=== PATIENT | female | born 1955 | race African-American/Black ===

== ENCOUNTER → 2016-12-07 | Outpatient (CLI) | payer OTHER ==
--- NOTE | 2016-12-07 17:09 | WWHP ---
DATE OF SERVICE: 12/07/2016 CHIEF COMPLAINT: The patient is here for her routine gynecologic exam and mammogram. HISTORY OF PRESENT ILLNESS: This is a 61-year-old G3, P3 with an LMP of approximately 1994. The patient is without gynecologic complaints and denies any postmenopausal bleeding. She states her last pelvic exam was about 5 years ago. She states she was in the emergency room about 9 months ago and was found to have trichomonas on a urine specimen, and this was treated. Her sexual partner was also treated for this. She denies any vaginal discharge. PAST MEDICAL HISTORY: 1. Chronic hypertension. 2. Peptic ulcer disease. 3. Arthritis. 4. Anxiety. 5. Emphysema. 6. Hepatitis C. Dr. Stevenson is her primary care physician. MEDICATIONS: 1. Blood pressure medication; she is uncertain of the name. She takes this once daily. 2. Xanax 1 daily p.r.n. 3. [place] p.r.n. 4. Tramadol at bedtime. 5. Alupent inhaler p.r.n. ALLERGIES: TALWIN. PAST SURGICAL HISTORY: 1. Right kidney was removed in the past. 2. Colonoscopy x2, the last one in 2016. PAST OB HISTORY: Vaginal deliveries x3. 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 She was treated for trichomonas as above. She has no other history of STDs. She has never taken HRT. SOCIAL HISTORY: She smokes one half to one pack of cigarettes per day. She does drink about 1 to 1-1/2 fifth bottles of alcohol per week. She also has a history of cocaine use but denies any recent usage. She denies any other drug use in the past. She is a . She has been with her present boyfriend for 5 years but does not live with him. She is considered disabled. FAMILY HISTORY: Mother had gastric cancer. Father had lung cancer. Sister had some type of cancer, but she is uncertain of the type. That sister also had diabetes. REVIEW OF SYSTEMS: She believes she has gained about 20 pounds over the last year. She denies respiratory, cardiac or GI problems. PHYSICAL EXAM: Blood pressure 114/84. Height 5 feet 3 inches. Weight 190 pounds. Temperature 96.2, pulse 89. This is a well-developed, heavyset black female who is alert and oriented x3, in no acute distress. She does use a cane to walk. HEENT is within normal limits. NECK: Supple without mass or thyromegaly. CHEST AND LUNGS: Clear to auscultation. HEART: Regular rate and rhythm. Breasts are without mass or discharge. Axillary exam is negative for adenopathy. BACK: Negative for CVA tenderness. ABDOMEN: Soft, nontender, without palpable masses. PELVIC EXAM: External genitalia reveal mild atrophy without lesions. Cervix and vagina reveal mild atrophy without lesions. There is no significant prolapse. The uterus is midposition, nongravid size and nontender. There are no palpable adnexal masses or tenderness. Rectal exam was refused by the patient. EXTREMITIES: Nontender. Saline wet mount was negative for trichomonas or clue cells. IMPRESSION: 1. A 61-year-old menopausal female with normal gynecologic exam. 2. History of trichomonas diagnosed about 9 months ago per the patient. This was apparently treated. There is no evidence of trichomonas upon wet nathalie today. PLAN: 1. Pap smear was performed. 2. Self breast examination was discussed. 3. Mammogram will be done today. 4. GC and chlamydia testing from the cervix has been obtained. I have recommended blood testing for STDs, but she is refusing all blood testing at this time. We have discussed the sexually transmitted nature of trichomonas. STD prevention was discussed. 5. She will return in one year.
--- NOTE | 2016-12-08 07:18 | MM ---
Reason for exam: screening (asymptomatic). Last mammogram was performed 2 years and 3 months ago. Physical Findings: A clinical breast exam by your physician is recommended on an annual basis and results should be correlated with mammographic findings. MG Screening Mammo w CAD Bilateral CC and MLO view(s) were taken. Prior study comparison: September 09, 2014, mammogram, performed at [facility]. January 07, 2013, mammogram, performed at [facility]. There are scattered fibroglandular densities. There is no discrete abnormality. ASSESSMENT: Negative, BI-RAD 1 RECOMMENDATION: Routine screening mammogram of both breasts in 1 year.
== END | disposition home or self-care (01) ==
LOC: WWCWWP 08:38
PROVIDERS: ATTEND Obstetrics & Gynecology
DX: Z12.31 Encounter for screening mammogram for malignant neoplasm of breast (principal); Z11.3 Encounter for screening for infections with a predominantly sexual mode of transmission
CPT/HCPCS: 87591; 87491; G0202

== ENCOUNTER → 2017-04-25 | Outpatient (CLI) | payer OTHER ==
--- NOTE | 2017-04-25 08:13 | US ---
EXAMINATION TYPE: US liver DATE OF EXAM: 04/25/2017 COMPARISON: US CLINICAL HISTORY: Hepatitis C B18.2. Hep C, previous flaco EXAM MEASUREMENTS: Liver Length: 13.5 x 4.9 5.6 cm CBD: 0.9 cm Right Kidney: 13.5 x 4.9 x 5.6 cm Pancreas: Limited by bowel gas. Liver: Visualized portions appeared difficult to penetrate Gallbladder: Surgically absent Evidence for sonographic Marks's sign: No CBD: wnl for post flaco Right Kidney: wnl, lower pole not visualized due to bowel gas. IMPRESSION: 1. Liver somewhat difficult to penetrate which can be seen with fatty infiltration or hepatocellular disease. Correlate clinically. 2. Postcholecystectomy.
== END | disposition home or self-care (01) ==
LOC: RADUSWWP 07:03
PROVIDERS: ATTEND Internal Medicine Gastroenterology
DX: B18.2 Chronic viral hepatitis C (principal); Z90.49 Acquired absence of other specified parts of digestive tract
CPT/HCPCS: 76705

== ENCOUNTER → 2017-06-08 | Outpatient (CLI) | payer OTHER ==
[2017-06-08 09:40] LABS: CH 24.9; CHCM 31.4; HCT 45.3 % (34.0-46.0); HDW 2.55; HGB 13.5 gm/dL (11.4-16.0); Hypochromasia Slight; MCH 23.8 pg (25.0-35.0); MCHC 29.9 g/dL (31.0-37.0); MCV 79.8 fL (80.0-100.0); Mean Platelet Volume 7.8; RBC 5.68 m/uL (3.80-5.40); RDW 14.4 % (11.5-15.5); WBC 4.4 k/uL (3.8-10.6)
[2017-06-08 09:56] LABS: ALT 81 U/L (9-52); AST 91 U/L (14-36); Alkaline Phosphatase 68 U/L (38-126); Anion Gap 15 mmol/L; Blood Urea Nitrogen 15 mg/dL (7-17); Calcium 9.5 mg/dL (8.4-10.2); Carbon Dioxide 16 mmol/L (22-30); Chloride 111 mmol/L (98-107); Cholesterol 221 mg/dL (<200); Glucose 104 mg/dL (74-99); HDL Cholesterol 91 mg/dL (40-60); Non-African American GFR(MDRD) 50 (>60 ml/min/1.73 sqM); Potassium 4.3 mmol/L (3.5-5.1); Sodium 142 mmol/L (137-145); Total Bilirubin 0.4 mg/dL (0.2-1.3); Total Protein 7.9 g/dL (6.3-8.2)
[2017-06-12 17:02] LABS: HCV Qualitative Result DETECTED (Not detected)
== END | disposition home or self-care (01) ==
LOC: LABWHC1 09:18
PROVIDERS: ATTEND Internal Medicine Gastroenterology
DX: Z00.00 Encounter for general adult medical examination without abnormal findings (principal); B18.2 Chronic viral hepatitis C; J44.9 Chronic obstructive pulmonary disease, unspecified; E78.2 Mixed hyperlipidemia; M54.5 Low back pain; K21.0 Gastro-esophageal reflux disease with esophagitis
CPT/HCPCS: 36415; 80053; 80061; 84439; 84443; 85027; 87522; 87902

== ENCOUNTER 2021-12-09 08:52 | Day surgery (SDC) | payer MEDICARE, OTHER ==
[2021-12-07 12:37] VITALS: BMI 26.7
[~2021-12-09 08:52] MED LIST: ALPRAZolam 0.25 MG TAB PO PRN; ALPRAZolam 0.5 MG TAB PO PRN; ASPIRIN 325 MG TAB PO STA; ATORVASTATIN 80 MG TAB PO STA; HEPARIN SODIUM,PORCINE 10,000 UNIT in SODIUM CHLORIDE 0.9% 1,000 ML IRRIGATION PRN; HEPARIN SODIUM,PORCINE 2,500 UNIT in SODIUM CHLORIDE 0.9% 250 ML IRRIGATION PRN; NITROGLYCERIN SL TABS 0.4 MG TAB SUBLINGUAL PRN; SODIUM CHLORIDE 0.9% 1,000 ML in EMPTY BAG 1 BAG IV SCH
[2021-12-09] MEDS ORDERED: SODIUM CHLORIDE 0.9% 1,000 ML IV ONE (09:13)
[2021-12-09 09:38] VITALS: RESP 16; TEMP 97.8
[2021-12-09 09:45] LABS: Basophils # (A) 0.1 k/uL (0-0.2); Basophils % (A) 1 %; Eosinophils # (A) 0.2 k/uL (0-0.7); Eosinophils % (A) 4 %; HGB 12.7 gm/dL (11.4-16.0); Lymphocytes # (A) 1.9 k/uL (1.0-4.8); Lymphocytes % (A) 39 %; MCH 26.2 pg (25.0-35.0); MCHC 30.8 g/dL (31.0-37.0); MCV 85.1 fL (80.0-100.0); Mean Platelet Volume 9.3; Monocytes # (A) 0.4 k/uL (0-1.0); Monocytes % (A) 9 %; Neutrophils # (A) 2.1 k/uL (1.3-7.7); Neutrophils % (A) 44 %; Platelet Count 217 k/uL (150-450); RBC 4.82 m/uL (3.80-5.40); WBC 4.9 k/uL (3.8-10.6)
[2021-12-09] MEDS ORDERED: VERAPAMIL 2.5 MG/ML 2 ML AMP ONE (09:53)
[2021-12-09] MEDS ORDERED: HEPARIN SODIUM 1,000 UN/ML (10ML VL) ONE (09:53)
[2021-12-09 09:58] LABS: Calcium 9.6 mg/dL (8.4-10.2); Potassium 4.6 mmol/L (3.5-5.1)
[2021-12-09] MEDS ORDERED: fentaNYL (PF) 50 MCG/ML 2 ML AMP ONE (10:14)
[2021-12-09] MEDS: fentaNYL (PF) 50 MCG/ML 2 ML AMP IVP ONE ×2 (10:19→10:30)
[2021-12-09] MEDS: MIDAZOLAM 2 MG/2 ML VIAL IVP ONE ×2 (10:19→10:25)
[2021-12-09] MEDS ORDERED: LIDOCAINE 1% INJ 10MG/ML (5 ML VIAL-PF) SQ ONE (10:23)
[2021-12-09] MEDS: VERAPAMIL SYRINGE (5 MG/10 ML) INTRAARTER ONE ×2 (10:25→10:36)
[2021-12-09] MEDS ORDERED: HEPARIN SODIUM 1,000 UN/ML (10ML VL) IV ONE (10:26)
[2021-12-09] MEDS ORDERED: MIDAZOLAM 2 MG/2 ML VIAL IVP ONE (10:30)
[2021-12-09] MEDS ORDERED: IOPAMIDOL-370 125ML BTL INJ ONE (10:35)
[2021-12-09 14:33] VITALS: PULSE 58
--- NOTE | 2021-12-09 14:37 | XR ---
EXAMINATION TYPE: XR chest 1V portable DATE OF EXAM: 12/09/2021 HISTORY: Shortness of breath. COMPARISON: 11/20/2011 TECHNIQUE: Single view of the chest is submitted. FINDINGS: Demonstrated are scattered senescent parenchymal change. There is no evidence for focal infiltrate. The heart is stable. Hilar and mediastinal structures are within normal limits. Degenerative changes are seen of the dorsal spine. IMPRESSION: 1. Chronic changes without evidence for acute pulmonary disease.
[2021-12-09 14:50] VITALS: BP 168/81
--- NOTE | 2021-12-09 14:53 | P.GSCN ---
History of Present Illness Consult date: 12/09/21 Reason for Consult: Coronary artery disease Requesting physician: Jhon Hutchison History of present illness: This is a 66-year-old inactive female who follows on an outpatient basis with Dr. Allan for primary care and Dr. Hutchison for cardiology. She has a previous medical history of hypertension, hyperlipidemia, CVA approximately 20 years ago, single kidney with right nephrectomy in the past, hepatitis C, COPD, depression, current tobacco dependence, daily EtOH use, occasional marijuana and cocaine use. She has been experiencing chest pain and shortness of breath for approximately 2 months. She is debilitated and cannot walk very far, she does admit to walking with a cane. She was seen by cardiology and underwent stress testing which was abnormal, subsequently she was recommended to undergo heart ca theterization which was completed today and which demonstrated 85% left main disease, totally occluded right coronary artery with collateral from the left side, proximal LAD stenosis 95%, mid LAD stenosis 50% with distal LAD stenosis 70%, and circumflex with mild disease 30-40%. Due to these findings consultation was placed to cardiothoracic surgery for surgical revascularization recommendations. Review of Systems Review of systems was completed and was negative except as noted - Cardiovascular Reports as per HPI, Reports chest pain, Reports decreased exercise tolerance, Reports dyspnea on exertion, Reports shortness of breath Past Medical History Past Medical History: Asthma, Coronary Artery Disease (CAD), Chest Pain / Angina, COPD, CVA/TIA, Hyperlipidemia, Hypertension, Liver Disease, Rheumatoid Arthritis (RA) Additional Past Medical History / Comment(s): SOB w/exertion, hx. Hepatitis C, couple TIA's in past, only has 1 kidney, other kidney non-functioning History of Any Multi-Drug Resistant Organisms: None Reported Past Surgical History: Cholecystectomy, Heart Catheterization Additional Past Surgical History / Comment(s): surg. for kidney stones; right nephrectomy Past Anesthesia/Blood Transfusion Reactions: No Reported Reaction Past Psychological History: Depression Smoking Status: Current every day smoker Past Alcohol Use History: Daily Additional Past Alcohol Use History / Comment(s): Admits to 1 pint/day alcohol use, does admit to history of withdrawal Past Drug Use History: Cocaine, Marijuana Additional Drug Use History / Comment(s): Admits to occasional marijuana and cocaine use - Past Family History Mother Family Medical History: Liver Disease Additional Family Medical History / Comment(s): Mother of liver disease Medications and Allergies Home Medications Medication Instructions Recorded Confirmed Type Albuterol Sulfate [Proair Hfa] 1 - 2 puff INHALATION Q6HR PRN 12/07/21 12/09/21 History Aspirin 81 mg PO DAILY 12/07/21 12/09/21 History Diltiazem Cd [Cardizem CD] 180 mg PO DAILY 12/07/21 12/09/21 History FLUoxetine HCL [PROzac] 20 mg PO DAILY 12/07/21 12/09/21 History Fluticasone Nasal [place] [Flonase 2 spray EA NOSTRIL DAILY PRN 12/07/21 12/09/21 History Nasal [place]] LORazepam [Ativan] 0.5 mg PO BID PRN 12/07/21 12/09/21 History Meloxicam [Mobic] 7.5 mg PO DAILY 12/07/21 12/09/21 History Metoprolol Succinate (ER) [Toprol 25 mg PO DAILY 12/07/21 12/09/21 History Xl] Nitroglycerin Sl Tabs [Nitrostat] 0.4 mg SUBLINGUAL Q5M PRN 12/07/21 12/07/21 History traZODone HCL [Desyrel] 100 mg PO HS 12/07/21 12/09/21 History Allergies Allergy/AdvReac Type Severity Reaction Status Date / Time pentazocine [From Amalia] Allergy Nausea & Verified 12/09/21 09:26 Vomiting Surgical - Exam Vital Signs Temp Pulse Resp BP Pulse Ox 97.8 F 60 16 242/107 98 12/09/21 09:35 12/09/21 09:35 12/09/21 09:35 12/09/21 09:35 12/09/21 09:35 CONSTITUTIONAL: Awake and alert, appears comfortable, cooperative, well-devel oped, well-nourished, no pain, no acute distress EYES: Pupils equal, round, reactive to light, normal ocular movement ENT: Moist mucous membranes without oral lesions present NECK: No masses, no bruits, trachea midline RESPIRATORY: Lungs sounds clear to auscultation bilaterally. Respirations e leeroy, nonlabored. Currently on room air with oxygen saturation 93%. Strong cough. No chest wall deformities. No clubbing or cyanosis present CARDIOVASCULAR: S1, S2 present. Regular rate and rhythm, sinus rhythm on telemetry. Palpable peripheral pulses bilaterally. No edema present. No calf pain or tenderness noted. No significant lower extremity varicosities noted. Left radial Rl's test less than 8 seconds. GASTROINTESTINAL: Abdomen soft, nontender, nondistended without masses or o rganomegaly noted. There is no rebound or guarding present. Active bowel sounds present 4 quadrants. GENITOURINARY: Deferred INTEGUMENTARY: Skin is warm and dry with evidence of good perfusion. NEUROLOGIC: Cranial nerves II through XII intact, normal coordination, no obvious motor or sensory deficits, speech is normal MUSKULOSKELETAL: Able to move all extremities, strength equal bilaterally, normal posture PSYCHIATRIC: Alert and oriented to person place and time, appropriate affect, intact judgment and insight Results - Labs 12/09/21 09:30 12/09/21 09:30 Abnormal Lab Results - Last 24 Hours (Table) 12/09/21 Range/Units 09:30 MCHC 30.8 L (31.0-37.0) g/dL RDW 16.0 H (11.5-15.5) % Diabetes panel 12/09/21 Range/Units 09:30 Sodium 138 (137-145) mmol/L Potassium 4.6 (3.5-5.1) mmol/L Chloride 107 (98-107) mmol/L Carbon Dioxide 25 (22-30) mmol/L BUN 11 (7-17) mg/dL Creatinine 0.83 (0.52-1.04) mg/dL Glucose 88 (74-99) mg/dL Calcium 9.6 (8.4-10.2) mg/dL Calcium panel 12/09/21 Range/Units 09:30 Calcium 9.6 (8.4-10.2) mg/dL Pituitary panel 12/09/21 Range/Units 09:30 Sodium 138 (137-145) mmol/L Potassium 4.6 (3.5-5.1) mmol/L Chloride 107 (98-107) mmol/L Carbon Dioxide 25 (22-30) mmol/L BUN 11 (7-17) mg/dL Creatinine 0.83 (0.52-1.04) mg/dL Glucose 88 (74-99) mg/dL Calcium 9.6 (8.4-10.2) mg/dL Adrenal panel 12/09/21 Range/Units 09:30 Sodium 138 (137-145) mmol/L Potassium 4.6 (3.5-5.1) mmol/L Chloride 107 (98-107) mmol/L Carbon Dioxide 25 (22-30) mmol/L BUN 11 (7-17) mg/dL Creatinine 0.83 (0.52-1.04) mg/dL Glucose 88 (74-99) mg/dL Calcium 9.6 (8.4-10.2) mg/dL - Imaging Additional studies: Heart catheterization and echocardiogram films reviewed with Dr. Moura Assessment and Plan Assessment: 1. Coronary artery disease with left main disease 2. Hypertension 3. Hyperlipidemia 4. CVA approximately 20 years ago 5. Single kidney with right nephrectomy in the past 6. Hepatitis C 7. COPD 8. Depression 9. Current tobacco dependence 10. Daily EtOH use with history of withdrawal 11. Occasional marijuana and cocaine use Plan: The patient was seen and examined in the extended stay unit with Dr. Moura. Chart/diagnostics were reviewed. The usual perioperative course of coronary artery bypass surgery was discussed in detail with the patient, risks and benefits were reviewed, all questions were answered. Preoperative testing was initiated. We will calculate STS risk score and discuss with the patient. Tentatively we will plan for surgical myocardial revascularization with left internal mammary artery, endoscopic vein harvesting, possible left radial artery harvest, and ligation of the left atrial appendage with Dr. Moura on 12/22/2021 as long as there are no significant red flags. We will contact the patient with date and time of surgery. More recommendations to follow. Thank you Dr. Hutchison for this consult. We look forward to working with you in the care of your patient. I have personally seen and examined the patient, performed the documentation and the assessment and plan as written. Number of minutes spent on the visit: 30. AMI Messer
[2021-12-09 15:23] LABS: Partial Thromboplastin Time 25.8 sec (22.0-30.0)
[2021-12-09 15:27] LABS: ALT 22 U/L (4-34); AST 50 U/L (14-36); African American GFR (CKD) 71 (>60 ml/min/1.73 sqM); Albumin 3.8 g/dL (3.5-5.0); Alkaline Phosphatase 25 U/L (38-126); Anion Gap 5 mmol/L; Blood Urea Nitrogen 12 mg/dL (7-17); Carbon Dioxide 25 mmol/L (22-30); Chloride 106 mmol/L (98-107); Glucose 107 mg/dL (74-99); Magnesium 1.6 mg/dL (1.6-2.3); Non-African American GFR(CKD) 62 (>60 ml/min/1.73 sqM); Potassium 4.7 mmol/L (3.5-5.1); Sodium 136 mmol/L (137-145); Total Bilirubin 0.6 mg/dL (0.2-1.3); Total Protein 6.8 g/dL (6.3-8.2)
[2021-12-09 15:39] LABS: Appearance,Urine Clear (Clear); Bilirubin,Urine Negative (Negative); Blood,Urine Negative (Negative); Color,Urine Yellow; Glucose,Urine (UA) Negative (Negative); Ketones,Urine Negative (Negative); Leukocyte Esterase,Urine Negative (Negative); Nitrite,Urine Negative (Negative); PH, Urine 6.5 (5.0-8.0); Protein,Urine Negative (Negative); Specific Gravity,Urine 1.044 (1.001-1.035)
--- NOTE | 2021-12-09 17:08 | US ---
EXAMINATION TYPE: US abdomen limited DATE OF EXAM: 12/09/2021 COMPARISON: NONE CLINICAL HISTORY: rule out ascites. rule out ascites Findings: Grayscale imaging of all 4 abdominal quadrants. No evidence of significant ascites noted IMPRESSION: No evidence for significant ascites.
--- NOTE | 2021-12-09 17:10 | US ---
EXAMINATION TYPE: US carotid duplex BILAT DATE OF EXAM: 12/09/2021 COMPARISON: NONE CLINICAL HISTORY: preop cardiac surgery. pre op cardiac surgery EXAM MEASUREMENTS: RIGHT: Peak Systolic Velocity (PSV) cm/sec ----- Right CCA: 63.7 ----- Right ICA: 51.6 ----- Right ECA: 174 ICA/CCA ratio: 0.81 RIGHT: End Diastole cm/sec ----- Right CCA: 12.6 ----- Right ICA: 13.8 ----- Right ECA: 0.0 LEFT: Peak Systolic Velocity (PSV) cm/sec ----- Left CCA: 65.0 ----- Left ICA: 141 ----- Left ECA: 127 ICA/CCA ratio: 2.17 LEFT: End Diastole cm/sec ----- Left CCA: 13.6 ----- Left ICA: 44.7 ----- Left ECA: 44.7 VERTEBRALS (direction of flow): Right Vertebral: Antegrade Left Vertebral: Antegrade Rhythm: Normal Moderate plaque bilateral bifurcations. Tortuous right ICA. Tortuous left ICA. Limited evaluation of left ECA. Increased velocities right ECA and left ECA IMPRESSION: 1. 50-69% stenosis of the left carotid system. 2. Less than 50% stenosis of the right carotid system. Criteria for Assigning % of Stenosis / Diameter reduction (Estimation based on the indirect measurements of the internal carotid artery velocities (ICA PSV). 1. Normal (no stenosis)=ICA PSV < 125 cm/s: ratio < 2.0: ICA EDV<40 cm/s. 2. Less than 50% stenosis=ICA PSV < 125 cm/s: ratio < 2.0: ICA EDV<40 cm/s. 3. 50 to 69% stenosis=ICA PSV of 125 to 230 cm/s: ration 2.0 ? 4.0: ICA EDV 40-100 cm/s. 4. Greater than 70% stenosis to near occlusion= ICA PSV > 230 cm/s: ratio > 4.0: ICA EDV > 100 cm/s. 5. Near occlusion= ICA PSV velocities may be low or undetectable: variable ratio and ICA EDV. 6. Total occlusion=unable to detect flow.
[2021-12-09 19:29] LABS: Hepatitis A Antibody IgM Nonreactive (Nonreactive); Hepatitis B Core IgM Nonreactive (Nonreactive); Hepatitis B Surface Antigen Nonreactive (Nonreactive); Hepatitis C IgG Antibody Reactive (Nonreactive)
[2021-12-09 22:46] LABS: Chol/HDL Ratio 2.16 Ratio; LDL Cholesterol,Calculated 74.9 mg/dL (0.0-131.0); VLDL Calculation 17.52 mg/dL (5.00-40.00)
--- NOTE | 2021-12-10 11:33 | CA ---
Transthoracic Echo Report Name: Joanna Chinchilla Age: 66 Gender: F : 1955 Exam Date: 12/09/2021 12:08 Exam Location: [facility] Ht (in): 64 Wt (lb): 153 Ordering Physician: Lynda Ahuja Attending/Referring Phys: [id number], Seymour Stitcher Feeder Lynad Ca RDCS Procedure CPT: Indications: eval LV, valves for cardiac surgery Cardiac Hx: Technical Quality: Fair Contrast 1: Total Dose (mL): Contrast 2: Total Dose (mL): MEASUREMENTS (Male / Female) Normal Values 2D ECHO LV Diastolic Diameter PLAX 4.1 cm 4.2 - 5.9 / 3.9 - 5.3 cm LV Systolic Diameter PLAX 2.4 cm IVS Diastolic Thickness 1.1 cm 0.6 - 1.0 / 0.6 - 0.9 cm LVPW Diastolic Thickness 1.2 cm 0.6 - 1.0 / 0.6 - 0.9 cm LV Relative Wall Thickness 0.5 RV Internal Dim ED PLAX 2.7 cm LA Volume 41.9 cm??? 18 - 58 / 22 - 52 cm??? M-MODE Aortic Root Diameter MM 2.4 cm LA Systolic Diameter MM 2.9 cm LA Ao Ratio MM 1.2 MV E Point Septal Separation 1.5 cm AV Cusp Separation MM 1.6 cm DOPPLER AV Peak Velocity 119.8 cm/s AV Peak Gradient 5.7 mmHg MV Area PHT 3.2 cm??? MR Peak Velocity 180.1 cm/s MR Peak Gradient 13.0 mmHg Mitral E Point Velocity 95.8 cm/s Mitral A Point Velocity 110.3 cm/s Mitral E to A Ratio 0.9 MV Deceleration Time 235.5 ms MV E' Velocity 6.5 cm/s Mitral E to MV E' Ratio 14.8 TR Peak Velocity 150.8 cm/s TR Peak Gradient 9.1 mmHg Right Ventricular Systolic Press 14.1 mmHg FINDINGS Left Ventricle Mildly increased septal wall thickness. Mildly increased posterior wall thickness. Left ventricular ejection fraction is estimated at 55-60 %. Left ventricular cavity size normal. Right Ventricle The right ventricle is normal in size and function. Right Atrium The right atrium is normal in size. Left Atrium The left atrium is normal in size. Mitral Valve Structurally normal mitral valve without significant stenosis or prolapse. There is mild mitral regurgitation. Aortic Valve Structurally normal aortic valve without significant sclerosis or stenosis. There is no aortic regurgitation. Tricuspid Valve Structurally normal tricuspid valve without significant stenosis. Pulmonary artery systolic pressure is normal. Trace tricuspid regurgitation. Pulmonic Valve Structurally normal pulmonic valve without significant stenosis. There is no pulmonic regurgitation. Pericardium Normal pericardium without effusion. Aorta Normal aortic root dimension. CONCLUSIONS Normal left ventricular dimension and systolic function Mild left ventricular hypertrophy Please see above for further details Previewed by: Dr. Roderick Newell MD (Electronically Signed) Final Date: 10 Dec 2021 11:32
--- NOTE | 2021-12-12 08:50 | US ---
EXAMINATION TYPE: US vein mapping BIL DATE OF EXAM: 12/09/2021 4:25 PM COMPARISON: NONE CLINICAL HISTORY: preop cardiac surgery. pre op cardiac surgery SIDE PERFORMED: Bilateral TECHNIQUE: Lower extremity saphenous vein is examined and measured utilizing real time linear array sonography. Patient History: Smoker: yes Heart Disease: yes Previous DVT: no Vascular Surgery: no Discoloration: no Hypertension: yes Diabetes: no Paralysis: no Varicosities: no Edema: no DUPLEX FINDINGS: Greater Saphenous: Color flow seen Measurements in mm: Right Greater Saphenous: Groin: 5.6 x 4.5 mm High Thigh: 3.7 x 2.9 mm Mid Thigh: 3.1 x 2.6 mm Above Knee: 3.7 x 2.7 mm Knee: 3.4 x 2.8 mm Below Knee: 2.7 x 2.4 mm Mid Calf: 2.6 x 2.1 mm At Ankle: 2.3 x 1.7 mm Left Greater Saphenous: Groin: 4.8 x 4.9 mm High Thigh: 3.5 x 2.7 mm Mid Thigh: 2.8 x 2.2 mm Above Knee: 3.3 x 2.6 mm Knee: 3.5 x 2.9 mm Below Knee: 3.3 x 2.7 mm Mid Calf: 2.4 x 2.2 mm At Ankle: 2.5 x 1.9 mm IMPRESSION: 1. Bilateral GSV measurements listed above. 2. Performing surgeon to determine viability as conduit.
--- NOTE | 2021-12-12 15:13 | US ---
EXAMINATION TYPE: Pre-Operative Non-Invasive Evaluation of the hand for Potential Radial Artery [address], Measurements only DATE OF EXAM: 12/09/2021 4:25 PM CLINICAL HISTORY: preop cardiac surgery. pre op cardiac surgery SIDE PERFORMED: Bilateral TECHNIQUE: Radial artery is measured utilizing real time linear array sonography. Duplex Findings: Radial Artery: Color flow seen Measurements in mm, transverse view: Right Radial: normal anomaly: extends into upper arm towards axillary Proximal: 3.6 x 3.4 mm Mid: 3.3 x 3.2 mm Distal: 3.1 x 2.8 mm Left Radial: unable to visualize origin due to IV and bandages Proximal: 2.8 x 2.6 mm Mid: 3.1 x 2.5 mm Distal: 3.0 x 2.4 mm IMPRESSION: 1. Bilateral radial artery measurements as listed above. 2. Performing surgeon to determine viability as conduit.
--- NOTE | 2021-12-14 11:49 | P.CARDCATH ---
Description of Procedure: PROCEDURES PERFORMED: Bilateral coronary angiography INDICATION: Angina Date of procedure: 12/09/2021 CONSENT:I have discussed the risks, benefits and alternative therapies for the above-mentioned procedure and for both sedation/analgesia as well as necessary blood product administration, if indicated, as they pertain to this patient. The patient has indicated understanding and acceptance of the risks and procedures discussed. PROCEDURE: After the risks, benefits and alternatives of the above mentioned procedure explained in detail with the patient, informed consent was obtained. Patient was taken to the catheterization lab and prepped and draped in usual fashion. 1% lidocaine was used to anesthetize the right radial artery. A 6- Danish sheath was placed in the right radial artery using modified Seldinger technique. Left coronary angiography was performed with a 5-Danish JL 3.5 catheter and right coronary angiography was performed with a 5-Danish JR5 catheter in various views. Due to spasm no LV pressures were obtained. The right radial sheath was removed and a TR band was placed with hemostasis achieved. The patient tolerated the procedure well. Patient was transported back to the post catheterization holding area in stable condition. Conscious Sedation: Patient was monitored under the direct supervision of vision of myself for conscious sedation using Versed and fentanyl for a total duration of 11 minutes HEMODYNAMICS: Aorta: 144/78 SELECTIVE CORONARY ARTERIOGRAPHY: LEFT MAIN: The left main is a large caliber vessel which bifurcates into the LAD and circumflex. There is a distal left main 80-90% stenosis. LEFT ANTERIOR DESCENDING CORONARY ARTERY: LAD is a large caliber vessel which wraps around to the apex. There is a ostial LAD 90% stenosis and otherwise mild disease and then a apical LAD 70-80% stenosis. There are [id number] collaterals. LEFT CIRCUMFLEX CORONARY ARTERY: Left circumflex is a moderate caliber vessel mild 20-30% circumflex stenosis. RIGHT CORONARY ARTERY: The right coronary artery is a large caliber vessel which gives off a PDA and PLV branch and is the dominant vessel. There is a mid RCA 100% stenosis with mild right to right collaterals. FINAL IMPRESSION: 1. Severe coronary artery disease as described above including 80-90% left main stenosis, ostial LAD 90% stenosis, apical LAD 70-80% stenosis and RCA 100% stenosis. PLAN: 1. Aggressive risk factor modification per most recent ACC/AHA guidelines. 2. Evaluate for CABG.
== END 2021-12-09 16:27 | disposition home or self-care (01) ==
LOC: CATHCVL 08:52
PROVIDERS: ATTEND Internal Medicine
DX: I25.10 Atherosclerotic heart disease of native coronary artery without angina pectoris (principal); I10 Essential (primary) hypertension; F17.200 Nicotine dependence, unspecified, uncomplicated; E78.5 Hyperlipidemia, unspecified; M19.90 Unspecified osteoarthritis, unspecified site; Z86.73 Personal history of transient ischemic attack (TIA), and cerebral infarction without residual deficits; J44.9 Chronic obstructive pulmonary disease, unspecified; F32.A Depression, unspecified; Z20.822 Contact with and (suspected) exposure to COVID-19
CPT/HCPCS: 93454; 93306; 94150; 80061; 80053; 80048; 80074; 84443; 83735; 85025; 85610; 85730; 81003; 87070; 83036; 87635; 71045; 76705; 93930; 93970; 93880; C1894; C1769; J2250; J2001; J3010; J1644; Q9967

== ENCOUNTER 2021-12-21 05:29 | Inpatient (IN) | payer MEDICARE, OTHER ==
[~2021-12-21 05:29] MED LIST changes: +ALBUMIN HUMAN 25% 50 ML IV ONE; +ALBUMIN HUMAN 5% 500 ML IVPB ONE; -ALPRAZolam 0.25 MG TAB PO PRN; -ALPRAZolam 0.5 MG TAB PO PRN; +ASPIRIN 325 MG TAB PO ONE; -ASPIRIN 325 MG TAB PO STA; +ATORVASTATIN 20 MG TAB PO ONE; -ATORVASTATIN 80 MG TAB PO STA; +CALCIUM CHLORIDE 100 MG/ML 10 ML SYRINGE IV ONE; +CHLORHEXIDINE GLUCONATE 15 ML CUP MUCOUS MEM ONE; +CLEVIDIPINE BUTYRATE 25 MG in EMPTY BAG 1 BAG IV ONE; +DILTIAZEM 125 MG in SODIUM CHLORIDE 0.9% 100 ML IV ONE; +ELECTROLYTE-A SOLUTION 1,000 ML with POTASSIUM CHLORIDE 100 MEQ, MAGNESIUM SULFATE 16 M... IV ONE; +ELECTROLYTE-A SOLUTION 1,000 ML with POTASSIUM CHLORIDE 40 MEQ, MAGNESIUM SULFATE 16 ME... IV ONE; +HEPARIN SODIUM 1,000 UN/ML (10ML VL) IV ONE; -HEPARIN SODIUM,PORCINE 10,000 UNIT in SODIUM CHLORIDE 0.9% 1,000 ML IRRIGATION PRN; -HEPARIN SODIUM,PORCINE 2,500 UNIT in SODIUM CHLORIDE 0.9% 250 ML IRRIGATION PRN; +HEPARIN SODIUM,PORCINE 5,000 UNIT in SODIUM CHLORIDE 0.9% 500 ML 500 ML IV ONE; +INSULIN REGULAR 100 UNIT in SODIUM CHLORIDE 0.9% 100 ML IV ONE; +LACTATED RINGERS 1,000 ML IV ONE; +MAGNESIUM SULFATE 16.24 MEQ in EMPTY SYRINGE 1 SYR IV ONE; +MANNITOL 25% 12.5 GM/50 ML VIAL IV ONE; +METOPROLOL TARTRATE 12.5 MG TAB PO ONE; +MUPIROCIN 2% OINT 22 GM TUBE NASAL ONE; +NITROGLYCERIN SL TABS 0.4 MG TAB SUBLINGUAL ONE; -NITROGLYCERIN SL TABS 0.4 MG TAB SUBLINGUAL PRN; +NITROGLYCERIN-D5W PMX 25 MG/250 ML BTL IV ONE; +NITROGLYCERIN-D5W PMX 50 MG in DEXTROSE/WATER 1 250ML.BAG IV ONE; +NOREPINEPHRINE 4 MG in SODIUM CHLORIDE 0.9% 250 ML IV ONE; +PAPAVERINE 360 MG in SODIUM CHLORIDE 0.9% 90 ML IV ONE; +PHENYLEPHRINE 10 MG/ML VIAL IV ONE; +PHENYLEPHRINE 40 MG in SODIUM CHLORIDE 0.9% 250 ML IV ONE; +PROTAMINE SULFATE 10 MG/ML 25 ML VIAL IV ONE; +PROTAMINE SULFATE 250 MG in EMPTY BAG 1 BAG IV ONE; +SODIUM BICARB 8.4% 50 ML SYR (1 MEQ/ML) IV ONE; +SODIUM CHLORIDE 0.9% 1,000 ML IV ONE; -SODIUM CHLORIDE 0.9% 1,000 ML in EMPTY BAG 1 BAG IV SCH; +TRANEXAMIC ACID 2,000 MG in SODIUM CHLORIDE 0.9% 80 ML IV ONE; +ceFAZolin 1,000 MG in SODIUM CHLORIDE 0.9% IRRIGATIO 1,000 ML IRRIGATION ONE; +propofoL 1,000 MG/100 ML VIAL IV ONE
[2021-12-21] MEDS ORDERED: LACTATED RINGERS 1,000 ML IV SCH (05:42)
[2021-12-21] MEDS ORDERED: LIDOCAINE 1% (10MG/ML) FOR IV START INTRADERMA PRN (05:42)
[2021-12-21] MEDS ORDERED: HEPARIN SODIUM,PORCINE 10,000 UNIT/ML 1 ML VIAL ONE (07:44)
[2021-12-21] MEDS ORDERED: MAGNESIUM SULFATE 4 MEQ/ML 10ML VIAL ONE (07:44)
[2021-12-21] MEDS ORDERED: ceFAZolin 1,000 MG VIAL ONE (07:44)
[2021-12-21] MEDS ORDERED: LIDOCAINE 2% SYG (PF) 100 MG/5 ML ONE (07:44)
[2021-12-21] MEDS ORDERED: VECURONIUM 10 MG VIAL IV ONE (07:44)
[2021-12-21] MEDS ORDERED: PROPOFOL 10 MG/ML 20 ML VIAL IV ONE (07:44)
[2021-12-21] MEDS ORDERED: SUCCINYLCHOLINE CHLORIDE 100 MG/5 ML SYR IV ONE (07:44)
[2021-12-21] MEDS ORDERED: NITROGLYCERIN-D5W PMX 50 MG/250 ML BOTTLE IV ONE (07:44)
[2021-12-21] MEDS ORDERED: MIDAZOLAM HCL 10 MG/10 ML VIAL ONE (07:44)
[2021-12-21] MEDS ORDERED: TRANEXAMIC ACID IN NACL,ISO-OS 1,000 MG/100 ML BAG ONE (07:44)
[2021-12-21] MEDS ORDERED: fentaNYL (PF) 50 MCG/ML 50 ML VIAL ONE (07:44)
[2021-12-21] MEDS ORDERED: SODIUM CHLORIDE 0.9% 100 ML BAG ONE (07:44)
[2021-12-21 08:36] LABS: ABG Base Excess -0.8 mmol/L; ABG Glucose Whole Blood 106 mg/dL (75-99); ABG HCO3 24 mmol/L (21-25); ABG Hematocrit 34 % (34.0-46.0); ABG Ionized Calcium 4.9 mg/dL (4.5-5.3); ABG Lactic Acid Whole Blood 1.7 mmol/L (0.5-1.6); ABG Oxygen Saturation 99.2 % (94-97); ABG PCO2 42 mmHg (35-45); ABG PH 7.38 (7.35-7.45); ABG PO2 225 mmHg (83-108); ABG Potassium Whole Blood 4.2 mmol/L (3.4-4.5); ABG Sodium Whole Blood 140 mmol/L (135-146); ABG TCO2 26 mmol/L (19-24)
[2021-12-21 09:15] LABS: Amphetamine Screen,Urine Not Detected (NotDetected); Barbiturate Screen,Urine Not Detected (NotDetected); Benzodiazepines Screen,Urine Detected (NotDetected); Cocaine Screen,Urine Detected (NotDetected); Methadone Screen, Urine Not Detected (NotDetected); Opiate Screen,Urine Not Detected (NotDetected); Oxycodone Screen, Urine Not Detected (NotDetected); Phencyclidine Screen,Urine Not Detected (NotDetected); Tricyclic Antidepressant,Urine Not Detected (NotDetected); Urn Cannabinoid Scrn Not Detected (NotDetected)
[2021-12-21 09:44] LABS: ABG Base Excess -1.6 mmol/L; ABG Glucose Whole Blood 142 mg/dL (75-99); ABG HCO3 25 mmol/L (21-25); ABG Hematocrit 32 % (34.0-46.0); ABG Ionized Calcium 4.9 mg/dL (4.5-5.3); ABG Lactic Acid Whole Blood 1.6 mmol/L (0.5-1.6); ABG Oxygen Saturation 98.8 % (94-97); ABG PCO2 50 mmHg (35-45); ABG PH 7.31 (7.35-7.45); ABG PO2 190 mmHg (83-108); ABG Potassium Whole Blood 4.3 mmol/L (3.4-4.5); ABG Sodium Whole Blood 140 mmol/L (135-146); ABG TCO2 27 mmol/L (19-24)
[2021-12-21 10:48] LABS: ABG Base Excess -0.2 mmol/L; ABG Glucose Whole Blood 146 mg/dL (75-99); ABG HCO3 24 mmol/L (21-25); ABG Ionized Calcium 4.2 mg/dL (4.5-5.3); ABG Lactic Acid Whole Blood 1.3 mmol/L (0.5-1.6); ABG Oxygen Saturation 99.7 % (94-97); ABG PCO2 38 mmHg (35-45); ABG PH 7.42 (7.35-7.45); ABG PO2 362 mmHg (83-108); ABG Sodium Whole Blood 136 mmol/L (135-146); ABG TCO2 25 mmol/L (19-24)
[2021-12-21 11:24] LABS: ABG Base Excess -0.4 mmol/L; ABG Glucose Whole Blood 141 mg/dL (75-99); ABG HCO3 24 mmol/L (21-25); ABG Ionized Calcium 4.1 mg/dL (4.5-5.3); ABG Lactic Acid Whole Blood 1.4 mmol/L (0.5-1.6); ABG Oxygen Saturation 99.8 % (94-97); ABG PCO2 36 mmHg (35-45); ABG PH 7.43 (7.35-7.45); ABG PO2 353 mmHg (83-108); ABG Potassium Whole Blood 5.1 mmol/L (3.4-4.5); ABG Sodium Whole Blood 137 mmol/L (135-146); ABG TCO2 25 mmol/L (19-24)
[2021-12-21 11:54] LABS: ABG Base Excess 0.4 mmol/L; ABG Glucose Whole Blood 139 mg/dL (75-99); ABG HCO3 25 mmol/L (21-25); ABG Ionized Calcium 4.2 mg/dL (4.5-5.3); ABG Lactic Acid Whole Blood 1.4 mmol/L (0.5-1.6); ABG PCO2 37 mmHg (35-45); ABG PH 7.43 (7.35-7.45); ABG PO2 346 mmHg (83-108); ABG Potassium Whole Blood 5.2 mmol/L (3.4-4.5); ABG Sodium Whole Blood 138 mmol/L (135-146); ABG TCO2 26 mmol/L (19-24)
[2021-12-21 13:20] LABS: ABG Base Excess -0.6 mmol/L; ABG Glucose Whole Blood 129 mg/dL (75-99); ABG HCO3 25 mmol/L (21-25); ABG Hematocrit 26 % (34.0-46.0); ABG Ionized Calcium 4.8 mg/dL (4.5-5.3); ABG Oxygen Saturation 98.8 % (94-97); ABG PCO2 42 mmHg (35-45); ABG PH 7.38 (7.35-7.45); ABG PO2 149 mmHg (83-108); ABG Potassium Whole Blood 4.5 mmol/L (3.4-4.5); ABG Sodium Whole Blood 139 mmol/L (135-146); ABG TCO2 26 mmol/L (19-24)
[2021-12-21 13:31] LABS: ABG Hematocrit 22 % (34.0-46.0)
[2021-12-21 13:32] LABS: ABG Hematocrit 21 % (34.0-46.0)
[2021-12-21 13:33] LABS: ABG Hematocrit 21 % (34.0-46.0)
[2021-12-21] MEDS ORDERED: METOCLOPRAMIDE 5 MG/ML 2 ML VIAL IVP PRN (13:58)
[2021-12-21] MEDS ORDERED: Magnesium Replacement Protocol 1 EACH MISC MISCELLANE PRN (13:58)
[2021-12-21] MEDS ORDERED: AMIODARONE 450 MG in DEXTROSE 5% IN WATER 250 ML IV PRN ×2 (13:58)
[2021-12-21] MEDS ORDERED: IPRATROPIUM-ALBUTEROL 3 ML NEB INHALATION PRN (13:58)
[2021-12-21] MEDS ORDERED: ONDANSETRON 4 MG/2 ML VIAL IVP PRN (13:58)
[2021-12-21] MEDS ORDERED: THIAMINE 100 MG/ML 2 ML VIAL IM STA (13:58)
[2021-12-21] MEDS ORDERED: DEXTROSE 5% IN WATER 100 ML with AMIODARONE 150 MG IV PRN (13:58)
[2021-12-21] MEDS ORDERED: AMIODARONE 360 MG in DEXTROSE 5% IN WATER 200 ML IV PRN ×2 (13:58)
[2021-12-21] MEDS ORDERED: CALCIUM GLUCONATE IN NACL 2 GM in SALINE 1 100ML.BAG IVPB PRN (13:58)
[2021-12-21] MEDS ORDERED: Potassium Replacement Protocol 1 EACH MISC MISCELLANE PRN (13:58)
[2021-12-21] MEDS ORDERED: BENZOCAINE/MENTHOL LOZENG 1 EACH LOZENGE MUCOUS MEM PRN (13:58)
[2021-12-21] MEDS ORDERED: hydrALAZINE HCL 20 MG/ML 1 ML VIAL IVP PRN (13:58)
[2021-12-21] MEDS ORDERED: ALBUMIN HUMAN 5% 250 ML IVPB ONE (14:03)
[2021-12-21] MEDS: SODIUM CHLORIDE 0.9% 1,000 ML IV SCH (14:07)
[2021-12-21] MEDS: MILRINONE-D5W PMX 20 MG in DEXTROSE/WATER 1 100ML.BAG IV SCH (14:16)
[2021-12-21] MEDS ORDERED: CLEVIDIPINE BUTYRATE 25 MG in EMPTY BAG 1 BAG IV SCH (14:30)
[2021-12-21] MEDS ORDERED: DEXMEDETOMIDINE/0.9% NACL(PMX) 400 MCG in EMPTY BAG 1 BAG IV SCH (14:30)
[2021-12-21] MEDS ORDERED: NITROGLYCERIN-D5W PMX 50 MG in DEXTROSE/WATER 1 250ML.BAG IV SCH (14:30)
[2021-12-21 14:34] LABS: Glucose,Whole Blood 129 mg/dL (75-99)
[2021-12-21 14:43] LABS: Anisocytosis Slight; Basophils % (A) 0 %; Eosinophils # (A) 0.1 k/uL (0-0.7); Eosinophils % (A) 1 %; HCT 30.5 % (34.0-46.0); Hypochromasia Slight; Lymphocytes # (A) 1.4 k/uL (1.0-4.8); Lymphocytes % (A) 17 %; MCH 26.9 pg (25.0-35.0); MCHC 30.7 g/dL (31.0-37.0); MCV 87.6 fL (80.0-100.0); Mean Platelet Volume 11.3; Monocytes # (A) 0.4 k/uL (0-1.0); Monocytes % (A) 5 %; Neutrophils % (A) 75 %; Platelet Count 123 k/uL (150-450); RBC 3.48 m/uL (3.80-5.40); RDW 16.1 % (11.5-15.5)
[2021-12-21 14:45] LABS: HGB 9.3 gm/dL (11.4-16.0)
[2021-12-21 14:55] LABS: ABG Base Excess -1.2 mmol/L; ABG HCO3 25 mmol/L (21-25); ABG Oxygen Saturation 99.2 % (94-97); ABG PCO2 51 mmHg (35-45); ABG PO2 156 mmHg (83-108); ABG TCO2 27 mmol/L (19-24)
--- NOTE | 2021-12-21 14:56 | XR ---
EXAMINATION TYPE: XR chest 1V portable DATE OF EXAM: 12/21/2021 CLINICAL HISTORY: Postoperative cardiac surgery. TECHNIQUE: Single AP portable semiupright view of the chest is obtained. COMPARISON: Chest x-ray from December 09, 2021 FINDINGS: There is new endotracheal tube terminating at aortic knob level, approximately 2 cm above the henrry. There is new orogastric tube projecting below diaphragm. There is new right internal jugu lar Castella-Pamela catheter terminating at the level of pulmonary outflow tract. There are bilateral chest tubes and mediastinal drainage catheter now identified. There is new left atrial appendage clip radha g with overlying sternal wires and mediastinal clips and epicardial pacer leads are noted. Diminished inspiration with increased markings bilaterally on current study. No pneumothorax clearly seen. Cardiac silhouette size stable and mildly enlarged. Surgical clips in the bilateral central mid abdomen are noted. Osseous structures are intact. IMPRESSION: 1. Tubes and lines as detailed above are thought satisfactory in position. 2. Diminished inspiration with mild cardiomegaly and mild bilateral edema thought present.
[2021-12-21 14:58] LABS: Glucose,Whole Blood 121 mg/dL (75-99)
[2021-12-21 15:00] LABS: INR 1.1 (<1.2); Prothrombin Time 12.1 sec (9.0-12.0)
[2021-12-21] MEDS ORDERED: INSULIN REGULAR 100 UNIT in SODIUM CHLORIDE 0.9% 100 ML IV SCH (15:00)
[2021-12-21 15:01] LABS: Partial Thromboplastin Time 31.7 sec (22.0-30.0)
[2021-12-21 15:10] LABS: Ionized Calcium 5.2 mg/dL (4.5-5.3)
[2021-12-21 15:16] LABS: ALT 21 U/L (4-34); AST 81 U/L (14-36); African American GFR (CKD) >90 (>60 ml/min/1.73 sqM); Albumin 2.4 g/dL (3.5-5.0); Alkaline Phosphatase 25 U/L (38-126); Anion Gap 4 mmol/L; Blood Urea Nitrogen 13 mg/dL (7-17); Carbon Dioxide 23 mmol/L (22-30); Chloride 109 mmol/L (98-107); Glucose 115 mg/dL (74-99); Magnesium 2.4 mg/dL (1.6-2.3); Non-African American GFR(CKD) 89 (>60 ml/min/1.73 sqM); Potassium 4.7 mmol/L (3.5-5.1); Sodium 136 mmol/L (137-145); Total Bilirubin 0.9 mg/dL (0.2-1.3); Total Protein 4.5 g/dL (6.3-8.2)
--- NOTE | 2021-12-21 15:50 | P.CNPUL ---
History of Present Illness Consult date: 12/21/21 Chief complaint: Coronary artery disease History of present illness: This is a 66-year-old -[place] Citizen female patient of Dr. Allan with past medical history of hypertension, hyperlipidemia, CVA, single kidney with right nephrectomy, history of hepatitis C, COPD, current tobacco dependence, depression, daily EtOH use, occasional marijuana and cocaine use. Patient had recently been complaining of chest pain and shortness of breath for 2 months, she was seen by cardiology, she follows with Dr. Hutchison, she underwent stress testing which was abnormal and subsequently she had a heart catheterization that demonstrated 85% left main disease, totally occluded RCA with collateral from the left side, proximal LAD stenosis of 95%, mid LAD stenosis of a 50% with distal LAD stenosis of 70%, and circumflex with mild disease of 30-40%. Due to these findings patient was referred to cardiothoracic surgery for surgical revascularization. Transthoracic echocardiogram from 12/09/2021 showed preserved LV function with ejection fraction of 55-60%, mildly increased septal wall thickness and posterior wall thickness. There was mild mitral regurg, aortic valve was structurally normal without significant sclerosis or stenosis or aortic regurgitation, pulmonary artery systolic pressure was normal, there was trace tricuspid regurg. Bedside PFT showed FEV1 of 1.68 L or 73% of predicted, FVC of 2.04, or 68% of predicted, and FEV1 to FEC ratio of 107%, MCV of 63, and this was consistent with mild restrictive pulmonary physiology. Today on 12/21/2021 patient presented to the hospital, and underwent three- vessel coronary artery bypass surgery with DE LA CRUZ to the LAD, SVG to the OM, SVG to the PDA,, left atrial appendage exclusion with 35 mm Atriclip, intraoperative CHAD, and appendectomy aortic scanning. Patient has known history of substance abuse, and her urine drug screen the day of surgery on 12/21/2021 was positive for benzodiazepines and cocaine. We seen the patient in the postoperative period in the ICU, patient is still sedated and intubated, on assist-control mode with a rate of 12, tidal lamberts 400, FiO2 of 100% and PEEP of 5, postoperative blood gas shows pO2 156, pCO2 51, and pH of 7.30 and this was done on the above-mentioned ventilator settings and FiO2 had since been dropped down to 80%. Chest x-ray showing ET tube 2 cm above the henrry, right internal jugular [place]-Pamela in place, bilateral pleural and mediastinal chest tubes in place. No pneumothorax. Patient is in sinus mechanism with a rate of 71, blood pressure is 148/63, PA pressures 33/16, CVP 7-8, cardiac output is 3.6, and cardiac index is 2.0. With SVR of 1400. Currently patient is on lactated Ringer's at 50 ML per hour, insulin is at 0.5 units per hour, nitroglycerin is up 5 mics per kilo per minute, and milrinone is at 0.3 mics per kilo per minute. Right and left pleural chest tubes connected together, and mediastinal chest tube with minimal sanguinous output. No air leak noted. Young catheter is in place, patient is producing 50-65 ML per hour. Review of Systems All systems: negative Constitutional: Denies chills, Denies fever Eyes: denies blurred vision, denies pain Ears, nose, mouth and throat: Denies headache, Denies sore throat Cardiovascular: Reports chest pain, Denies shortness of breath Respiratory: Reports dyspnea, Denies cough Gastrointestinal: Denies abdominal pain, Denies diarrhea, Denies nausea, Denies vomiting Genitourinary: Denies dysuria, Denies hematuria Musculoskeletal: Denies myalgias Integumentary: Denies pruritus, Denies rash Neurological: Denies numbness, Denies weakness Psychiatric: Denies anxiety, Denies depression Endocrine: Denies fatigue, Denies weight change Past Medical History Past Medical History: Asthma, Coronary Artery Disease (CAD), Chest Pain / Angina, COPD, CVA/TIA, Hyperlipidemia, Hypertension, Liver Disease, Rheumatoid Arthritis (RA) Additional Past Medical History / Comment(s): SOB w/exertion, hx. Hepatitis C, couple TIA's in past, only has 1 kidney, other kidney non-functioning History of Any Multi-Drug Resistant Organisms: None Reported Past Surgical History: Cholecystectomy, Heart Catheterization Additional Past Surgical History / Comment(s): surg. for kidney stones; right nephrectomy Past Anesthesia/Blood Transfusion Reactions: No Reported Reaction Smoking Status: Current every day smoker - Past Family History Mother Family Medical History: Liver Disease Additional Family Medical History / Comment(s): Mother of liver disease Medications and Allergies Home Medications Medication Instructions Recorded Confirmed Type Albuterol Sulfate [Proair Hfa] 1 - 2 puff INHALATION Q6HR PRN 12/07/21 12/17/21 History Aspirin 81 mg PO DAILY 12/07/21 12/21/21 History Diltiazem Cd [Cardizem CD] 180 mg PO DAILY 12/07/21 12/21/21 History FLUoxetine HCL [PROzac] 20 mg PO DAILY 12/07/21 12/21/21 History LORazepam [Ativan] 0.5 mg PO BID PRN 12/07/21 12/21/21 History Meloxicam [Mobic] 7.5 mg PO DAILY 12/07/21 12/21/21 History Metoprolol Succinate (ER) [Toprol 25 mg PO DAILY 12/07/21 12/21/21 History Xl] Nitroglycerin Sl Tabs [Nitrostat] 0.4 mg SUBLINGUAL Q5M PRN 12/07/21 12/17/21 History traZODone HCL [Desyrel] 100 mg PO HS 12/07/21 12/21/21 History Allergies Allergy/AdvReac Type Severity Reaction Status Date / Time pentazocine [From Amalia] Allergy Nausea & Verified 12/21/21 05:51 Vomiting Physical Exam Vitals: Vital Signs Temp Pulse Pulse Resp BP BP Pulse Ox 12/21/21 15:16 67 12 12/21/21 15:15 67 12 100 12/21/21 15:10 67 12 100 12/21/21 15:00 70 12 100 12/21/21 14:50 68 12 100 12/21/21 14:40 69 31 H 99 12/21/21 14:30 36.4 F L 68 13 99 12/21/21 14:27 12/21/21 14:23 69 12 12/21/21 14:20 12/21/21 06:01 97.2 F L 65 14 170/73 195/99 95 FiO2 12/21/21 15:16 80 12/21/21 15:15 12/21/21 15:10 12/21/21 15:00 100 12/21/21 14:50 12/21/21 14:40 12/21/21 14:30 100 12/21/21 14:27 100 12/21/21 14:23 12/21/21 14:20 100 12/21/21 06:01 Intake and Output 05/12/21/21 12/21/21 06:59 14:59 22:59 Intake Total 200 52.851 8.462 Output Total 1565 Balance 200 -1512.149 8.462 Intake: IV 200 52 Intake, IV Titration 0.851 8.462 Amount Clevidipine Butyrate 25 0.733 mg In Empty Bag 1 bag @ 1 MG/HR 2 mls/hr IV .Q24H YADY Rx#:[id number] propofoL 1,000 mg In 0.851 7.729 Empty Bag 1 bag @ Titrate IV .Q0M YADY Rx#: [id number] Output: Urine 865 Estimated Blood Loss 700 Other: Weight 70.9 kg ABP, PAP, CO, CI - Last 8 Hours Arterial Blood Pressure 141/60 Arterial Blood Pressure 173/75 Arterial Blood Pressure 133/66 Arterial Blood Pressure 133/61 Arterial Blood Pressure 134/63 Arterial Blood Pressure 108/47 Pulmonary Artery Pressure 34/16 Pulmonary Artery Pressure 34/16 Pulmonary Artery Pressure 36/18 Pulmonary Artery Pressure 38/16 Pulmonary Artery Pressure 35/20 Pulmonary Artery Pressure 31/12 Cardiac Output 3.8 Cardiac Output 3.6 Cardiac Output 3.6 Cardiac Index 2.1 Cardiac Index 2 Cardiac Index 2 GENERAL EXAM: Sedated, intubated, 66-year-old -[place] Citizen female patient on assist control mode of ventilation with a rate of 12, tidal volume of 400, FiO2 of 80% and PEEP of 5 comfortable in no apparent distress. HEAD: Normocephalic/atraumatic. EYES: Normal reaction of pupils, equal size. Conjunctiva pink, sclera white. NOSE: Clear with pink turbinates. THROAT: No erythema or exudates. NECK: No masses, no JVD, no thyroid enlargement, no adenopathy. CHEST: No chest wall deformity. Symmetrical expansion. Midsternal incision is clean dry and intact, right and left pleural chest tubes why connected to the same pleural VAC, with minimal sanguinous output, and mediastinal chest tube with minimal sanguinous output, no air leak, AV wires in place connected to temporary pacemaker with backup rate LUNGS: Equal air entry with no crackles, wheeze, rhonchi or dullness. CVS: Regular rate and rhythm, normal S1 and S2, no gallops, no murmurs, no rubs ABDOMEN: Soft, nontender. No hepatosplenomegaly, normal bowel sounds, no guarding or rigidity. EXTREMITIES: No clubbing, no edema, no cyanosis, 2+ pulses and upper and lower extremities. MUSCULOSKELETAL: Muscle strength and tone normal. SPINE: No scoliosis or deformity SKIN: No rashes, left leg interrupted incision covered with Tad wrap Results - Laboratory Findings CBC and BMP: 12/21/21 14:32 12/21/21 14:32 ABG ABG pH 7.30 (7.35-7.45) L 12/21/21 14:53 ABG pCO2 51 mmHg (35-45) H 12/21/21 14:53 ABG pO2 156 mmHg (83-108) H 12/21/21 14:53 ABG O2 Saturation 99.2 % (94-97) H 12/21/21 14:53 PT/INR, D-dimer PT 12.1 sec (9.0-12.0) H 12/21/21 14:32 INR 1.1 (<1.2) 12/21/21 14:32 Abnormal lab findings: Abnormal Labs 12/18/21 12/21/21 12/21/21 11:03 08:30 08:37 RBC Hgb Hct MCHC RDW Plt Count PT APTT ABG pH ABG pCO2 ABG pO2 225 H ABG Total CO2 26 H ABG O2 Saturation 99.2 H ABG Hematocrit ABG Potassium ABG Ionized Calcium ABG Glucose 106 H ABG Lactic Acid 1.7 H Hemoglobin 11.1 L Sodium Chloride Glucose POC Glucose (mg/dL) Calcium Magnesium AST Alkaline Phosphatase Total Protein Albumin Arterial Blood Potassium Arterial Blood Glucose 106 H U Benzodiazepines Scrn Detected H Urine Cocaine Screen Detected H Crossmatch See Detail 12/21/21 12/21/21 12/21/21 09:45 10:49 11:26 RBC Hgb Hct MCHC RDW Plt Count PT APTT ABG pH 7.31 L ABG pCO2 50 H ABG pO2 190 H 362 H 353 H ABG Total CO2 27 H 25 H 25 H ABG O2 Saturation 98.8 H 99.7 H 99.8 H ABG Hematocrit 32 L 22 L 21 L ABG Potassium 5.0 H 5.1 H ABG Ionized Calcium 4.2 L 4.1 L ABG Glucose 142 H 146 H 141 H ABG Lactic Acid Hemoglobin 10.5 L 7.3 L 6.7 L* Sodium Chloride Glucose POC Glucose (mg/dL) Calcium Magnesium AST Alkaline Phosphatase Total Protein Albumin Arterial Blood Potassium 5.0 H 5.1 H Arterial Blood Glucose 142 H 146 H 141 H U Benzodiazepines Scrn Urine Cocaine Screen Crossmatch 12/21/21 12/21/21 12/21/21 11:56 13:21 14:31 RBC Hgb Hct MCHC RDW Plt Count PT APTT ABG pH ABG pCO2 ABG pO2 346 H 149 H ABG Total CO2 26 H 26 H ABG O2 Saturation 100.0 H 98.8 H ABG Hematocrit 21 L 26 L ABG Potassium 5.2 H ABG Ionized Calcium 4.2 L ABG Glucose 139 H 129 H ABG Lactic Acid 2.0 H Hemoglobin 6.9 L* 8.5 L Sodium Chloride Glucose POC Glucose (mg/dL) 129 H Calcium Magnesium AST Alkaline Phosphatase Total Protein Albumin Arterial Blood Potassium 5.2 H Arterial Blood Glucose 139 H 129 H U Benzodiazepines Scrn Urine Cocaine Screen Crossmatch 12/21/21 12/21/21 12/21/21 14:32 14:32 14:32 RBC 3.48 L Hgb 9.3 L D Hct 30.5 L MCHC 30.7 L RDW 16.1 H Plt Count 123 L PT 12.1 H APTT 31.7 H ABG pH ABG pCO2 ABG pO2 ABG Total CO2 ABG O2 Saturation ABG Hematocrit ABG Potassium ABG Ionized Calcium ABG Glucose ABG Lactic Acid Hemoglobin Sodium 136 L Chloride 109 H Glucose 115 H POC Glucose (mg/dL) Calcium 8.0 L Magnesium 2.4 H AST 81 H Alkaline Phosphatase 25 L Total Protein 4.5 L Albumin 2.4 L Arterial Blood Potassium Arterial Blood Glucose U Benzodiazepines Scrn Urine Cocaine Screen Crossmatch 12/21/21 12/21/21 14:53 14:56 RBC Hgb Hct MCHC RDW Plt Count PT APTT ABG pH 7.30 L ABG pCO2 51 H ABG pO2 156 H ABG Total CO2 27 H ABG O2 Saturation 99.2 H ABG Hematocrit ABG Potassium ABG Ionized Calcium ABG Glucose ABG Lactic Acid Hemoglobin Sodium Chloride Glucose POC Glucose (mg/dL) 121 H Calcium Magnesium AST Alkaline Phosphatase Total Protein Albumin Arterial Blood Potassium Arterial Blood Glucose U Benzodiazepines Scrn Urine Cocaine Screen Crossmatch - Diagnostic Findings Chest x-ray: report reviewed, image reviewed Assessment and Plan Plan: Assessment: #1. Symptomatic multivessel coronary artery disease, status post three-vessel coronary artery bypass grafting with DE LA CRUZ to LAD, SVG to the OM, SVG to the PDA, left atrial appendage exclusion with 35 mm Atriclip on 12/21/2021 #2. Routine postoperative ventilator management #3. History of substance abuse including cocaine, EtOH, and marijuana. Urine drug screen on the day of surgery on 12/21/2021 is positive for cocaine and benzodiazepines #4. History of single kidney, with history of nephrectomy #5. Chronic and ongoing tobacco dependence #6. History of CVA #7. Hypertension #8. Hyperlipidemia #9. History of COPD #10. Depression #11. History of hepatitis C Plan: Continue weaning FiO2 per protocol Hemodynamically patient is stable, no significant bleeding from the chest tubes Postoperative chest x-ray and labs have been noted Blood gas has been noted, patient was examined at the bedside Continue weaning sedation We'll proceed with weaning parameters and pressure support trials once the patient is awake, cooperative and following commands Continue with nebulized bronchodilators every 4 hours while on the ventilator, and 4 times daily after extubation Incentive spirometer to the bedside Follow-up blood work and chest x-ray tomorrow Continue close hemodynamic monitoring GI and DVT prophylaxis per CT surgery recommendations Continue to closely follow with CT surgery I have personally seen and examined the patient, performed the documentation and the assessment and plan as written. Number of minutes spent on the visit: [15] Time with Patient: Greater than 30
[2021-12-21] MEDS ORDERED: IPRATROPIUM-ALBUTEROL 3 ML NEB INHALATION SCH (16:00)
[2021-12-21 16:08] LABS: Glucose,Whole Blood 141 mg/dL (75-99)
[2021-12-21] MEDS: HEPARIN SODIUM,PORCINE/PF 5,000 UNIT/0.5 ML SYRINGE SQ SCH ×2 (16:37→23:35)
[2021-12-21 17:14] LABS: Glucose,Whole Blood 149 mg/dL (75-99)
[2021-12-21] MEDS: KETOROLAC 15 MG/ML 1 ML VIAL IVP SCH ×2 (17:20→23:35)
[2021-12-21] MEDS: ACETAMINOPHEN IV (For NPO) 1,000 MG in EMPTY BAG 1 BAG IVPB SCH ×2 (17:20→23:36)
[2021-12-21 18:00] LABS: Anisocytosis Slight; Basophils % (A) 0 %; Eosinophils % (A) 0 %; Hypochromasia Moderate; Lymphocytes # (A) 0.9 k/uL (1.0-4.8); Lymphocytes % (A) 10 %; MCH 27.2 pg (25.0-35.0); MCHC 30.9 g/dL (31.0-37.0); MCV 88.1 fL (80.0-100.0); Mean Platelet Volume 10.7; Monocytes # (A) 0.5 k/uL (0-1.0); Monocytes % (A) 6 %; Neutrophils # (A) 6.8 k/uL (1.3-7.7); Neutrophils % (A) 82 %; Platelet Count 135 k/uL (150-450); RBC 3.29 m/uL (3.80-5.40); RDW 16.1 % (11.5-15.5); WBC 8.3 k/uL (3.8-10.6)
[2021-12-21 18:20] LABS: Glucose,Whole Blood 126 mg/dL (75-99)
[2021-12-21] MEDS: ALBUMIN HUMAN 5% 250 ML in EMPTY BAG 1 BAG IVPB PRN ×3 (18:54→23:37)
--- NOTE | 2021-12-21 19:00 | OP ---
OPERATIVE REPORT DATE OF SURGERY: 12/21/2021 PREOPERATIVE DIAGNOSIS: Coronary artery disease. POSTOPERATIVE DIAGNOSIS: Coronary artery disease. PROCEDURE: 1. Coronary artery bypass grafting x3 vessels (left internal mammary artery to left anterior descending artery, saphenous vein graft to obtuse marginal artery, saphenous vein graft to posterior descending artery). 2. Endoscopic harvest, left greater saphenous vein. 3. Ligation of left atrial appendage using 35 mm AtriClip. 4. Epiaortic ultrasound. 5. Transesophageal echocardiogram. SURGEON: Abel Moura M.D. ASSISTANTS: 1. BRITTANIE Burnette. 2. Matt Mendez NP. ANESTHESIA: General. SPECIMEN: None. COMPLICATIONS: None. INDICATION: The patient is a 66-year-old female with a past medical history significant for COPD, stroke, hyperlipidemia, hypertension, hepatitis C, tobacco use, alcohol abuse, single kidney status post nephrectomy, and cocaine use. She reports shortness of breath and chest pain for the past two months. Stress test was found to be abnormal. Cardiac catheterization revealed multivessel coronary artery disease. A coronary artery bypass was recommended. The risks, benefits and alternatives to this procedure were discussed with the patient. All of her questions were answered. Consent was obtained. FINDINGS: The left internal mammary artery was a good conduit with brisk flow. The saphenous vein was a good conduit. The left anterior descending artery measured 1.5 mm. The obtuse marginal artery measured 1.3 mm. The posterior descending artery measured 1.3 mm. PROCEDURE IN DETAIL: The patient was taken to the operating room and placed supine on the operating table. After the induction of general anesthesia, she was prepped and draped in the usual sterile fashion. Preoperative transesophageal echocardiogram confirmed a preserved ejection fraction with some mild hypokinesis involving the inferolateral wall. There was mild central mitral regurgitation. A median sternotomy was performed. The left internal mammary artery was harvested in the standard fashion, taking care to clip all branches. Intravenous heparin was administered. The vessel was transected distally, revealing brisk flow. Simultaneously, greater saphenous vein was harvested from the left lower extremity using endoscopic technique. All branches were tied. Both the mammary artery and saphenous vein were good conduits. Of note, the left radial artery was tested and appeared to be dependent in nature, and therefore could not be used for conduit. A pericardial cradle was created. The ascending aorta was palpated. There was plaque noted in the arch. However, there was no plaque noted in the ascending aorta itself. Epiaortic ultrasound was then performed on the ascending aorta. Again, no calcific plaque or atheromatous disease was identified. An arterial cannula was placed in the distal ascending aorta. A venous cannula was placed through the right atrial appendage and directed into the IVC. Both antegrade and retrograde catheters were placed as well. The patient was then placed on cardiopulmonary bypass with good decompression of the heart. The aortic cross- clamp was applied. Cold blood potassium cardioplegia was delivered in both antegrade and retrograde fashion to achieve arrest of the heart. Of note, cardioplegia was delivered every 15 to 20 minutes while the patient was under crossclamp. I began by identifying the left atrial appendage. It was small in size. A 35 mm AtriClip was placed across its base to ensure ligation. Next, attention was turned to the inferior wall. The distal right coronary artery was palpated throughout its course. It was heavily calcified without a single soft spot identified. The posterior descending artery was identified. It was traced out distally. It contained diffuse disease, but a soft spot amenable for bypass was noted in its mid portion. A small arteriotomy was created. This vessel accepted a 1.0 mm probe. Using saphenous vein in a reverse fashion, an end- to-side anastomosis was created. This was performed using a running 7-0 Prolene suture. The graft was hemostatic and had good flow. Next, attention was turned to the lateral wall. The obtuse marginal was identified. It too contained diffuse calcific disease. A soft spot amenable for bypass was noted in its mid to distal region. A small arteriotomy was created. This vessel accepted a 1.0 mm probe. Using saphenous vein in a reverse fashion, an end-to-side anastomosis was created. This was performed using a running 7-0 Prolene suture. The graft was hemostatic and had great flow. Finally, attention was turned to the anterior wall. The left anterior descending artery was identified. It was dissected free in its mid portion. A small arteriotomy was created. This vessel accepted a 1.5 mm probe. This was a good target. Using the left internal mammary artery, an end-to-side anastomosis was created. This was performed using a running 8-0 Prolene suture. The graft was hemostatic. The mammary pedicle was then tacked down to the anterior surface of the heart. Attention was then turned to the proximal anastomoses. These were both performed in an end- to-side fashion using running 6-0 Prolene suture. One liter of warm blood was delivered in retrograde fashion. Both lidocaine and magnesium were administered as well. The aortic cross-clamp was removed. The vein grafts were de-aired in the standard fashion. Distal anastomoses were inspected and appeared to be hemostatic. Temporary atrial and ventricular pacing wires were placed and brought through the skin. The patient was then weaned off cardiopulmonary bypass. She without difficulty. Follow-up transesophageal echocardiogram confirmed a preserved ejection fraction with improvement in the inferolateral arias. There was no change in her mild mitral regurgitation. Protamine was administered. There were no adverse reactions. The remaining cannulas were then removed. The mediastinum was copiously irrigated with warm saline solution. Again all surgical sites were inspected and appeared to be hemostatic. Soft tissue was reapproximated over the ascending aorta as well as over of the apex of the heart. Chest tubes were placed in both the left and right pleural spaces as well as the mediastinum. These were all secured to the skin using sutures. The sternum was reapproximated using the [place] cable system. The cables were placed in a figure-of- eight fashion. At the completion of the closure, the sternum was well aligned. The remainder of the wound was closed in layers. A sterile dressing was applied. The patient appeared to tolerate the procedure well. There were no immediate complications. She returned to the ICU in critical but stable condition. She did not receive any intraoperative blood products. She was on low-dose milrinone as well as Cleviprex. MMODL / IJN: [id number] / MTDD
[2021-12-21 19:06] LABS: Glucose,Whole Blood 126 mg/dL (75-99)
[2021-12-21] MEDS: IPRATROPIUM-ALBUTEROL 3 ML NEB INHALATION SCH (19:09)
[2021-12-21 19:51] LABS: ABG Base Excess -6.7 mmol/L; ABG HCO3 20 mmol/L (21-25); ABG Oxygen Saturation 98.6 % (94-97); ABG PCO2 39 mmHg (35-45); ABG PH 7.31 (7.35-7.45); ABG PO2 115 mmHg (83-108); ABG TCO2 21 mmol/L (19-24); Allen Test Performed? Yes
[2021-12-21 20:09] LABS: Glucose,Whole Blood 128 mg/dL (75-99)
[2021-12-21] MEDS ORDERED: SODIUM BICARB 8.4% 50 ML SYR (1 MEQ/ML) IV STA (20:48)
[2021-12-21] MEDS ORDERED: ALBUMIN HUMAN 5% 250 ML in EMPTY BAG 1 BAG IVPB STA (20:48)
[2021-12-21 20:50] LABS: Glucose,Whole Blood 131 mg/dL (75-99)
[2021-12-21 21:18] LABS: Anisocytosis Slight; Basophils % (A) 0 %; Eosinophils % (A) 0 %; HCT 23.7 % (34.0-46.0); Hypochromasia Moderate; Lymphocytes # (A) 0.9 k/uL (1.0-4.8); Lymphocytes % (A) 14 %; MCH 26.8 pg (25.0-35.0); MCHC 30.3 g/dL (31.0-37.0); MCV 88.4 fL (80.0-100.0); Mean Platelet Volume 9.1; Monocytes # (A) 0.4 k/uL (0-1.0); Monocytes % (A) 6 %; Neutrophils # (A) 4.9 k/uL (1.3-7.7); Neutrophils % (A) 78 %; Platelet Count 107 k/uL (150-450); RBC 2.68 m/uL (3.80-5.40); RDW 16.3 % (11.5-15.5); WBC 6.3 k/uL (3.8-10.6)
[2021-12-21 21:21] LABS: HGB 7.2 gm/dL (11.4-16.0)
[2021-12-21 21:57] LABS: ABG Base Excess 3.4 mmol/L; ABG HCO3 28 mmol/L (21-25); ABG PCO2 47 mmHg (35-45); ABG PH 7.39 (7.35-7.45); ABG PO2 82 mmHg (83-108); ABG TCO2 30 mmol/L (19-24); Allen Test Performed? Yes; Glucose,Whole Blood 130 mg/dL (75-99)
[2021-12-21 22:54] LABS: Glucose,Whole Blood 128 mg/dL (75-99)
[2021-12-21] MEDS: MUPIROCIN 2% OINT 22 GM TUBE NASAL SCH (23:01)
[2021-12-21] MEDS ORDERED: ALBUMIN HUMAN 5% 250 ML in EMPTY BAG 1 BAG IVPB ONE (23:34)
[2021-12-22 00:16] LABS: Glucose,Whole Blood 124 mg/dL (75-99)
[2021-12-22 00:54] LABS: Glucose,Whole Blood 123 mg/dL (75-99)
[2021-12-22 01:58] LABS: Glucose,Whole Blood 117 mg/dL (75-99)
[2021-12-22 02:53] LABS: Glucose,Whole Blood 111 mg/dL (75-99)
[2021-12-22] MEDS: MILRINONE-D5W PMX 20 MG in DEXTROSE/WATER 1 100ML.BAG IV SCH ×2 (03:12→03:40)
[2021-12-22] MEDS: HYDROcodone/APAP 5-325MG 1 EACH TAB PO PRN ×3 (03:20→20:05)
[2021-12-22 03:57] LABS: Glucose,Whole Blood 137 mg/dL (75-99)
[2021-12-22] MEDS: ALBUMIN HUMAN 5% 250 ML in EMPTY BAG 1 BAG IVPB PRN (04:03)
[2021-12-22 04:22] LABS: Anisocytosis Slight; Basophils % (A) 0 %; Eosinophils % (A) 1 %; Hypochromasia Moderate; Lymphocytes # (A) 1.6 k/uL (1.0-4.8); Lymphocytes % (A) 25 %; MCH 26.8 pg (25.0-35.0); MCHC 30.3 g/dL (31.0-37.0); MCV 88.2 fL (80.0-100.0); Mean Platelet Volume 10.9; Monocytes # (A) 0.5 k/uL (0-1.0); Monocytes % (A) 8 %; Neutrophils # (A) 4.1 k/uL (1.3-7.7); Neutrophils % (A) 64 %; RDW 16.4 % (11.5-15.5); WBC 6.4 k/uL (3.8-10.6)
[2021-12-22 04:36] LABS: Ionized Calcium 4.9 mg/dL (4.5-5.3)
[2021-12-22 04:45] LABS: HCT 19.4 % (34.0-46.0); HGB 5.9 gm/dL (11.4-16.0)
[2021-12-22 04:46] LABS: ALT 13 U/L (4-34); AST 53 U/L (14-36); African American GFR (CKD) 64 (>60 ml/min/1.73 sqM); Albumin 2.9 g/dL (3.5-5.0); Alkaline Phosphatase <20 U/L (38-126); Anion Gap 4 mmol/L; Blood Urea Nitrogen 15 mg/dL (7-17); Calcium 7.7 mg/dL (8.4-10.2); Carbon Dioxide 26 mmol/L (22-30); Chloride 108 mmol/L (98-107); Glucose 114 mg/dL (74-99); Magnesium 2.1 mg/dL (1.6-2.3); Non-African American GFR(CKD) 55 (>60 ml/min/1.73 sqM); Potassium 4.2 mmol/L (3.5-5.1); Sodium 138 mmol/L (137-145); Total Bilirubin 0.6 mg/dL (0.2-1.3); Total Protein 4.6 g/dL (6.3-8.2)
[2021-12-22 04:55] LABS: ABG Base Excess 0.8 mmol/L; ABG HCO3 26 mmol/L (21-25); ABG Oxygen Saturation 94.8 % (94-97); ABG PCO2 43 mmHg (35-45); ABG PH 7.39 (7.35-7.45); ABG PO2 68 mmHg (83-108); ABG TCO2 27 mmol/L (19-24); Allen Test Performed? Yes
[2021-12-22 05:04] LABS: Glucose,Whole Blood 159 mg/dL (75-99)
[2021-12-22] MEDS: NOREPINEPHRINE 4 MG in SODIUM CHLORIDE 0.9% 250 ML IV SCH (05:10)
[2021-12-22 05:19] LABS: Platelet Count 99 k/uL (150-450)
[2021-12-22 05:57] LABS: Glucose,Whole Blood 154 mg/dL (75-99)
[2021-12-22] MEDS: KETOROLAC 15 MG/ML 1 ML VIAL IVP SCH (06:17)
[2021-12-22 06:50] LABS: Glucose,Whole Blood 151 mg/dL (75-99)
[2021-12-22] MEDS: IPRATROPIUM-ALBUTEROL 3 ML NEB INHALATION SCH ×4 (08:07→20:00)
--- NOTE | 2021-12-22 08:23 | XR ---
EXAMINATION TYPE: XR chest 1V portable DATE OF EXAM: 12/22/2021 COMPARISON: 12/21/2021 INDICATION: Postop cardiac surgery TECHNIQUE: Single frontal view of the chest is obtained. FINDINGS: The heart size is normal. The pulmonary vasculature is normal. Diffuse scattered infiltrates are present greater at the lung bases. Bilateral chest tubes are present. Mediastinal tube is present. Nasogastric tube transverses the thor ax. Endotracheal tube tip is above the henrry. [place]-Pamela catheter tip is in the main right pulmonary artery region. IMPRESSION: 1. Scattered bibasilar infiltrates worsening from comparison. 2. Lines and catheters discussed above
--- NOTE | 2021-12-22 08:37 | P.PN ---
Subjective Progress Note Date: 12/22/21 Principal diagnosis: Coronary artery disease with left main disease. Previous medical history of hypertension, current tobacco dependence with mild COPD, daily EtOH use (1 pint per day of liquor), occasional marijuana and cocaine use (UDS was positive for cocaine on admission), hepatitis C, CVA 20 years ago, solitary kidney. POD #1 coronary artery bypass grafting 3 vessels, left internal mammary artery to the left anterior descending artery, reverse saphenous vein graft to the obtuse marginal artery, reverse saphenous vein graft to the posterior descending artery, endoscopic harvesting of the left greater saphenous vein, ligation of the left atrial appendage using a 35 mm AtriClip, epi-aortic ultrasound and intraoperative transesophageal echocardiogram Postoperative acute blood loss anemia and thrombocytopenia, expected given hemodilution and cardiopulmonary bypass pump The patient was seen and examined this morning laying in bed in the intensive care unit still mechanically ventilated. She remains in sinus rhythm with marginal blood pressure on Primacor and levo. She did receive 1 unit packed red blood cells this morning for hemoglobin 5.9. Right internal jugular [place]ordis, right radial arterial line, mediastinal/right/left pleural chest tubes all remained. Objective - Vital Signs Vital signs: Vital Signs Temp 99.0 F 12/22/21 07:10 Pulse 87 12/22/21 08:15 Resp 14 12/22/21 07:10 BP 85/43 12/22/21 07:10 Pulse Ox 100 12/22/21 07:10 FiO2 50 12/22/21 08:13 Intake & Output 12/21/21 12/22/21 12/22/21 18:59 06:59 18:59 Intake Total 027.820 7353.527 318.914 Output Total 2260 1145 Balance -8453.768 2712.527 318.914 Weight 77.1 kg Intake: IV 414.5 2532.7 ACETAMINOPHEN IV (For NPO 400 ) 1,000 mg In Empty Bag 1 bag @ 400 mls/hr IVPB Q6HR [facility] Rx#:[id number] Albumin 5% 750 Bicarb 100 CARDIAC OUTPUT (0.9 60 380 Sodium Chloride) Lactated Ringers 250 650 Milrinone-D5w Pmx 20 mg 35.7 In Dextrose/Water 1 100ml .bag @ 0.3 MCG/KG/MIN 6. 381 mls/hr IV .[id number] [facility] Rx#:[id number] Nitroglycerin-D5w Pmx 50 7.5 mg In Dextrose/Water 1 250ml.bag @ 5 MCG/MIN 1.5 mls/hr IV .Q24H [facility] Rx#: [id number] Pressure Bag (0.9 Sodium 45 117 Chloride) ceFAZolin 2 gm In Sodium 100 Chloride 0.9% 50 ml @ 100 mls/hr IVPB Q8HR [facility] Rx# :[id number] Intake, IV Titration 288.827 425.827 8.914 Amount Albumin Human 5% 250 ml @ 250 250 0 mls/hr IVPB .[facility] Rx#:[id number] Clevidipine Butyrate 25 6.467 mg In Empty Bag 1 bag @ 1 MG/HR 2 mls/hr IV .Q24H [facility] Rx#:[id number] Insulin Regular 100 unit 4.495 16.992 In Sodium Chloride 0.9% 100 ml @ Per Protocol IV .Q0M [facility] Rx#:[id number] Milrinone-D5w Pmx 20 mg 90.929 In Dextrose/Water 1 100ml .bag @ 0.3 MCG/KG/MIN 6. 381 mls/hr IV .[id number] [facility] Rx#:[id number] Nitroglycerin-D5w Pmx 50 7.1 mg In Dextrose/Water 1 250ml.bag @ 5 MCG/MIN 1.5 mls/hr IV .Q24H [facility] Rx#: [id number] Norepinephrine 4 mg In 10.806 8.914 Sodium Chloride 0.9% 250 ml @ 0.05 MCG/KG/MIN 13. 506 mls/hr IV .[id number] [facility] Rx#:[id number] Sodium Chloride 0.9% 1, 50 000 ml @ 50 mls/hr IV . Q20H [facility] Rx#:[id number] propofoL 1,000 mg In 27.865 Empty Bag 1 bag @ Titrate IV .Q0M [facility] Rx#: [id number] Blood Product 0 310 Rc As-1 Unit 0 310 [id number] Output: Chest Tube Drainage 180 704 Chest Tube Bilateral 70 498 Lateral Chest Chest Tube Mediastinal 110 206 Urine 1380 441 Estimated Blood Loss 700 Other: Voiding Method Indwelling Catheter Indwelling Catheter ABP, PAP, CO, CI - Last Documented Arterial Blood Pressure 80/41 Pulmonary Artery Pressure 35/17 Cardiac Output 3.8 Cardiac Index 2.1 - Exam CONSTITUTIONAL: Currently laying in bed mechanically ventilated in no acute distress RESPIRATORY: Lungs sounds diminished bilaterally. Respirations even, nonlabored on mechanical ventilation. Current ventilator settings assist control mode, FiO2 60%, tidal volume 400, respiratory rate 12, PEEP 5. 8.0 ET tube present, 20 to the lip CARDIOVASCULAR: S1, S2 present. Regular rate and rhythm, sinus rhythm on telemetry. Sternum stable. Palpable peripheral pulses bilaterally. No edema present. No calf pain or tenderness noted. Heart hugger, antiembolism stockings, SCDs present. GASTROINTESTINAL: Abdomen soft, nontender, nondistended. Hypoactive bowel sounds present 4 quadrants. OG tube present to low intermittent suction with minimal thin green drainage GENITOURINARY: Young present draining clear, yellow urine. Output overnight 15-55 mL per hour INTEGUMENTARY: Skin is warm and dry with evidence of good perfusion. Anterior chest incision well approximated and covered with dry intact dressing. Left lower extremity EVH site well approximated without redness or drainage. NEUROLOGIC: Cranial nerves II through XII intact INVASIVE LINES AND TUBES: Mediastinal/left/right pleural chest tubes present and connected to wall suction, no air leaks present. Mediastinal tube with 152 mL serosanguineous drainage overnight, 300 mL since surgery. Left/right pleural chest tube with 450 mL serosanguineous drainage overnight, 600 mL since surgery. A/V epicardial pacemaker wires present, connected to generator, VVI mode with backup rate 50 bpm. Right internal jugular [place], right radial arterial line present. Last CO/CI 3.8/2.1, PA 36/19, CVP 10. - Allied health notes Allied health notes reviewed: nursing - Labs CBC & Chem 7: 12/22/21 03:55 12/22/21 03:55 Labs: Abnormal Lab Results - Last 24 Hours (Table) 12/18/21 12/21/21 12/21/21 Range/Units 11:03 08:30 08:37 RBC (3.80-5.40) m/uL Hgb (11.4-16.0) gm/dL Hct (34.0-46.0) % MCHC (31.0-37.0) g/dL RDW (11.5-15.5) % Plt Count (150-450) k/uL Lymphocytes # (1.0-4.8) k/uL PT (9.0-12.0) sec APTT (22.0-30.0) sec ABG pH (7.35-7.45) ABG pCO2 (35-45) mmHg ABG pO2 225 H (83-108) mmHg ABG HCO3 (21-25) mmol/L ABG Total CO2 26 H (19-24) mmol/L ABG O2 Saturation 99.2 H (94-97) % ABG Hematocrit (34.0-46.0) % ABG Potassium (3.4-4.5) mmol/L ABG Ionized Calcium (4.5-5.3) mg/dL ABG Glucose 106 H (75-99) mg/dL ABG Lactic Acid 1.7 H (0.5-1.6) mmol/L Hemoglobin 11.1 L (11.4-16.0) gm/dL Sodium (137-145) mmol/L Chloride (98-107) mmol/L Creatinine (0.52-1.04) mg/dL Glucose (74-99) mg/dL POC Glucose (mg/dL) (75-99) mg/dL Calcium (8.4-10.2) mg/dL Magnesium (1.6-2.3) mg/dL AST (14-36) U/L Alkaline Phosphatase (38-126) U/L Total Protein (6.3-8.2) g/dL Albumin (3.5-5.0) g/dL Arterial Blood Potassium (3.4-4.5) mmol/L Arterial Blood Glucose 106 H (75-99) mg/dL U Benzodiazepines Scrn Detected H (NotDetected) Urine Cocaine Screen Detected H (NotDetected) Crossmatch See Detail 12/21/21 12/21/21 12/21/21 Range/Units 09:45 10:49 11:26 RBC (3.80-5.40) m/uL Hgb (11.4-16.0) gm/dL Hct (34.0-46.0) % MCHC (31.0-37.0) g/dL RDW (11.5-15.5) % Plt Count (150-450) k/uL Lymphocytes # (1.0-4.8) k/uL PT (9.0-12.0) sec APTT (22.0-30.0) sec ABG pH 7.31 L (7.35-7.45) ABG pCO2 50 H (35-45) mmHg ABG pO2 190 H 362 H 353 H (83-108) mmHg ABG HCO3 (21-25) mmol/L ABG Total CO2 27 H 25 H 25 H (19-24) mmol/L ABG O2 Saturation 98.8 H 99.7 H 99.8 H (94-97) % ABG Hematocrit 32 L 22 L 21 L (34.0-46.0) % ABG Potassium 5.0 H 5.1 H (3.4-4.5) mmol/L ABG Ionized Calcium 4.2 L 4.1 L (4.5-5.3) mg/dL ABG Glucose 142 H 146 H 141 H (75-99) mg/dL ABG Lactic Acid (0.5-1.6) mmol/L Hemoglobin 10.5 L 7.3 L 6.7 L* (11.4-16.0) gm/dL Sodium (137-145) mmol/L Chloride (98-107) mmol/L Creatinine (0.52-1.04) mg/dL Glucose (74-99) mg/dL POC Glucose (mg/dL) (75-99) mg/dL Calcium (8.4-10.2) mg/dL Magnesium (1.6-2.3) mg/dL AST (14-36) U/L Alkaline Phosphatase (38-126) U/L Total Protein (6.3-8.2) g/dL Albumin (3.5-5.0) g/dL Arterial Blood Potassium 5.0 H 5.1 H (3.4-4.5) mmol/L Arterial Blood Glucose 142 H 146 H 141 H (75-99) mg/dL U Benzodiazepines Scrn (NotDetected) Urine Cocaine Screen (NotDetected) Crossmatch 12/21/21 12/21/21 12/21/21 Range/Units 11:56 13:21 14:31 RBC (3.80-5.40) m/uL Hgb (11.4-16.0) gm/dL Hct (34.0-46.0) % MCHC (31.0-37.0) g/dL RDW (11.5-15.5) % Plt Count (150-450) k/uL Lymphocytes # (1.0-4.8) k/uL PT (9.0-12.0) sec APTT (22.0-30.0) sec ABG pH (7.35-7.45) ABG pCO2 (35-45) mmHg ABG pO2 346 H 149 H (83-108) mmHg ABG HCO3 (21-25) mmol/L ABG Total CO2 26 H 26 H (19-24) mmol/L ABG O2 Saturation 100.0 H 98.8 H (94-97) % ABG Hematocrit 21 L 26 L (34.0-46.0) % ABG Potassium 5.2 H (3.4-4.5) mmol/L ABG Ionized Calcium 4.2 L (4.5-5.3) mg/dL ABG Glucose 139 H 129 H (75-99) mg/dL ABG Lactic Acid 2.0 H (0.5-1.6) mmol/L Hemoglobin 6.9 L* 8.5 L (11.4-16.0) gm/dL Sodium (137-145) mmol/L Chloride (98-107) mmol/L Creatinine (0.52-1.04) mg/dL Glucose (74-99) mg/dL POC Glucose (mg/dL) 129 H (75-99) mg/dL Calcium (8.4-10.2) mg/dL Magnesium (1.6-2.3) mg/dL AST (14-36) U/L Alkaline Phosphatase (38-126) U/L Total Protein (6.3-8.2) g/dL Albumin (3.5-5.0) g/dL Arterial Blood Potassium 5.2 H (3.4-4.5) mmol/L Arterial Blood Glucose 139 H 129 H (75-99) mg/dL U Benzodiazepines Scrn (NotDetected) Urine Cocaine Screen (NotDetected) Crossmatch 12/21/21 12/21/21 12/21/21 Range/Units 14:32 14:32 14:32 RBC 3.48 L (3.80-5.40) m/uL Hgb 9.3 L D (11.4-16.0) gm/dL Hct 30.5 L (34.0-46.0) % MCHC 30.7 L (31.0-37.0) g/dL RDW 16.1 H (11.5-15.5) % Plt Count 123 L (150-450) k/uL Lymphocytes # (1.0-4.8) k/uL PT 12.1 H (9.0-12.0) sec APTT 31.7 H (22.0-30.0) sec ABG pH (7.35-7.45) ABG pCO2 (35-45) mmHg ABG pO2 (83-108) mmHg ABG HCO3 (21-25) mmol/L ABG Total CO2 (19-24) mmol/L ABG O2 Saturation (94-97) % ABG Hematocrit (34.0-46.0) % ABG Potassium (3.4-4.5) mmol/L ABG Ionized Calcium (4.5-5.3) mg/dL ABG Glucose (75-99) mg/dL ABG Lactic Acid (0.5-1.6) mmol/L Hemoglobin (11.4-16.0) gm/dL Sodium 136 L (137-145) mmol/L Chloride 109 H (98-107) mmol/L Creatinine (0.52-1.04) mg/dL Glucose 115 H (74-99) mg/dL POC Glucose (mg/dL) (75-99) mg/dL Calcium 8.0 L (8.4-10.2) mg/dL Magnesium 2.4 H (1.6-2.3) mg/dL AST 81 H (14-36) U/L Alkaline Phosphatase 25 L (38-126) U/L Total Protein 4.5 L (6.3-8.2) g/dL Albumin 2.4 L (3.5-5.0) g/dL Arterial Blood Potassium (3.4-4.5) mmol/L Arterial Blood Glucose (75-99) mg/dL U Benzodiazepines Scrn (NotDetected) Urine Cocaine Screen (NotDetected) Crossmatch 12/21/21 12/21/21 12/21/21 Range/Units 14:53 14:56 16:07 RBC (3.80-5.40) m/uL Hgb (11.4-16.0) gm/dL Hct (34.0-46.0) % MCHC (31.0-37.0) g/dL RDW (11.5-15.5) % Plt Count (150-450) k/uL Lymphocytes # (1.0-4.8) k/uL PT (9.0-12.0) sec APTT (22.0-30.0) sec ABG pH 7.30 L (7.35-7.45) ABG pCO2 51 H (35-45) mmHg ABG pO2 156 H (83-108) mmHg ABG HCO3 (21-25) mmol/L ABG Total CO2 27 H (19-24) mmol/L ABG O2 Saturation 99.2 H (94-97) % ABG Hematocrit (34.0-46.0) % ABG Potassium (3.4-4.5) mmol/L ABG Ionized Calcium (4.5-5.3) mg/dL ABG Glucose (75-99) mg/dL ABG Lactic Acid (0.5-1.6) mmol/L Hemoglobin (11.4-16.0) gm/dL Sodium (137-145) mmol/L Chloride (98-107) mmol/L Creatinine (0.52-1.04) mg/dL Glucose (74-99) mg/dL POC Glucose (mg/dL) 121 H 141 H (75-99) mg/dL Calcium (8.4-10.2) mg/dL Magnesium (1.6-2.3) mg/dL AST (14-36) U/L Alkaline Phosphatase (38-126) U/L Total Protein (6.3-8.2) g/dL Albumin (3.5-5.0) g/dL Arterial Blood Potassium (3.4-4.5) mmol/L Arterial Blood Glucose (75-99) mg/dL U Benzodiazepines Scrn (NotDetected) Urine Cocaine Screen (NotDetected) Crossmatch 12/21/21 12/21/21 12/21/21 Range/Units 17:13 17:42 18:19 RBC 3.29 L (3.80-5.40) m/uL Hgb 9.0 L (11.4-16.0) gm/dL Hct 29.0 L (34.0-46.0) % MCHC 30.9 L (31.0-37.0) g/dL RDW 16.1 H (11.5-15.5) % Plt Count 135 L (150-450) k/uL Lymphocytes # 0.9 L (1.0-4.8) k/uL PT (9.0-12.0) sec APTT (22.0-30.0) sec ABG pH (7.35-7.45) ABG pCO2 (35-45) mmHg ABG pO2 (83-108) mmHg ABG HCO3 (21-25) mmol/L ABG Total CO2 (19-24) mmol/L ABG O2 Saturation (94-97) % ABG Hematocrit (34.0-46.0) % ABG Potassium (3.4-4.5) mmol/L ABG Ionized Calcium (4.5-5.3) mg/dL ABG Glucose (75-99) mg/dL ABG Lactic Acid (0.5-1.6) mmol/L Hemoglobin (11.4-16.0) gm/dL Sodium (137-145) mmol/L Chloride (98-107) mmol/L Creatinine (0.52-1.04) mg/dL Glucose (74-99) mg/dL POC Glucose (mg/dL) 149 H 126 H (75-99) mg/dL Calcium (8.4-10.2) mg/dL Magnesium (1.6-2.3) mg/dL AST (14-36) U/L Alkaline Phosphatase (38-126) U/L Total Protein (6.3-8.2) g/dL Albumin (3.5-5.0) g/dL Arterial Blood Potassium (3.4-4.5) mmol/L Arterial Blood Glucose (75-99) mg/dL U Benzodiazepines Scrn (NotDetected) Urine Cocaine Screen (NotDetected) Crossmatch 12/21/21 12/21/21 12/21/21 Range/Units 19:04 19:47 20:07 RBC (3.80-5.40) m/uL Hgb (11.4-16.0) gm/dL Hct (34.0-46.0) % MCHC (31.0-37.0) g/dL RDW (11.5-15.5) % Plt Count (150-450) k/uL Lymphocytes # (1.0-4.8) k/uL PT (9.0-12.0) sec APTT (22.0-30.0) sec ABG pH 7.31 L (7.35-7.45) ABG pCO2 (35-45) mmHg ABG pO2 115 H (83-108) mmHg ABG HCO3 20 L (21-25) mmol/L ABG Total CO2 (19-24) mmol/L ABG O2 Saturation 98.6 H (94-97) % ABG Hematocrit (34.0-46.0) % ABG Potassium (3.4-4.5) mmol/L ABG Ionized Calcium (4.5-5.3) mg/dL ABG Glucose (75-99) mg/dL ABG Lactic Acid (0.5-1.6) mmol/L Hemoglobin (11.4-16.0) gm/dL Sodium (137-145) mmol/L Chloride (98-107) mmol/L Creatinine (0.52-1.04) mg/dL Glucose (74-99) mg/dL POC Glucose (mg/dL) 126 H 128 H (75-99) mg/dL Calcium (8.4-10.2) mg/dL Magnesium (1.6-2.3) mg/dL AST (14-36) U/L Alkaline Phosphatase (38-126) U/L Total Protein (6.3-8.2) g/dL Albumin (3.5-5.0) g/dL Arterial Blood Potassium (3.4-4.5) mmol/L Arterial Blood Glucose (75-99) mg/dL U Benzodiazepines Scrn (NotDetected) Urine Cocaine Screen (NotDetected) Crossmatch 12/21/21 12/21/21 12/21/21 Range/Units 20:49 20:54 21:55 RBC 2.68 L (3.80-5.40) m/uL Hgb 7.2 L D (11.4-16.0) gm/dL Hct 23.7 L (34.0-46.0) % MCHC 30.3 L (31.0-37.0) g/dL RDW 16.3 H (11.5-15.5) % Plt Count 107 L (150-450) k/uL Lymphocytes # 0.9 L (1.0-4.8) k/uL PT (9.0-12.0) sec APTT (22.0-30.0) sec ABG pH (7.35-7.45) ABG pCO2 47 H (35-45) mmHg ABG pO2 82 L (83-108) mmHg ABG HCO3 28 H (21-25) mmol/L ABG Total CO2 30 H (19-24) mmol/L ABG O2 Saturation (94-97) % ABG Hematocrit (34.0-46.0) % ABG Potassium (3.4-4.5) mmol/L ABG Ionized Calcium (4.5-5.3) mg/dL ABG Glucose (75-99) mg/dL ABG Lactic Acid (0.5-1.6) mmol/L Hemoglobin (11.4-16.0) gm/dL Sodium (137-145) mmol/L Chloride (98-107) mmol/L Creatinine (0.52-1.04) mg/dL Glucose (74-99) mg/dL POC Glucose (mg/dL) 131 H (75-99) mg/dL Calcium (8.4-10.2) mg/dL Magnesium (1.6-2.3) mg/dL AST (14-36) U/L Alkaline Phosphatase (38-126) U/L Total Protein (6.3-8.2) g/dL Albumin (3.5-5.0) g/dL Arterial Blood Potassium (3.4-4.5) mmol/L Arterial Blood Glucose (75-99) mg/dL U Benzodiazepines Scrn (NotDetected) Urine Cocaine Screen (NotDetected) Crossmatch 12/21/21 12/21/21 12/22/21 Range/Units 21:55 22:52 00:14 RBC (3.80-5.40) m/uL Hgb (11.4-16.0) gm/dL Hct (34.0-46.0) % MCHC (31.0-37.0) g/dL RDW (11.5-15.5) % Plt Count (150-450) k/uL Lymphocytes # (1.0-4.8) k/uL PT (9.0-12.0) sec APTT (22.0-30.0) sec ABG pH (7.35-7.45) ABG pCO2 (35-45) mmHg ABG pO2 (83-108) mmHg ABG HCO3 (21-25) mmol/L ABG Total CO2 (19-24) mmol/L ABG O2 Saturation (94-97) % ABG Hematocrit (34.0-46.0) % ABG Potassium (3.4-4.5) mmol/L ABG Ionized Calcium (4.5-5.3) mg/dL ABG Glucose (75-99) mg/dL ABG Lactic Acid (0.5-1.6) mmol/L Hemoglobin (11.4-16.0) gm/dL Sodium (137-145) mmol/L Chloride (98-107) mmol/L Creatinine (0.52-1.04) mg/dL Glucose (74-99) mg/dL POC Glucose (mg/dL) 130 H 128 H 124 H (75-99) mg/dL Calcium (8.4-10.2) mg/dL Magnesium (1.6-2.3) mg/dL AST (14-36) U/L Alkaline Phosphatase (38-126) U/L Total Protein (6.3-8.2) g/dL Albumin (3.5-5.0) g/dL Arterial Blood Potassium (3.4-4.5) mmol/L Arterial Blood Glucose (75-99) mg/dL U Benzodiazepines Scrn (NotDetected) Urine Cocaine Screen (NotDetected) Crossmatch 12/22/21 12/22/21 12/22/21 Range/Units 00:53 01:56 02:51 RBC (3.80-5.40) m/uL Hgb (11.4-16.0) gm/dL Hct (34.0-46.0) % MCHC (31.0-37.0) g/dL RDW (11.5-15.5) % Plt Count (150-450) k/uL Lymphocytes # (1.0-4.8) k/uL PT (9.0-12.0) sec APTT (22.0-30.0) sec ABG pH (7.35-7.45) ABG pCO2 (35-45) mmHg ABG pO2 (83-108) mmHg ABG HCO3 (21-25) mmol/L ABG Total CO2 (19-24) mmol/L ABG O2 Saturation (94-97) % ABG Hematocrit (34.0-46.0) % ABG Potassium (3.4-4.5) mmol/L ABG Ionized Calcium (4.5-5.3) mg/dL ABG Glucose (75-99) mg/dL ABG Lactic Acid (0.5-1.6) mmol/L Hemoglobin (11.4-16.0) gm/dL Sodium (137-145) mmol/L Chloride (98-107) mmol/L Creatinine (0.52-1.04) mg/dL Glucose (74-99) mg/dL POC Glucose (mg/dL) 123 H 117 H 111 H (75-99) mg/dL Calcium (8.4-10.2) mg/dL Magnesium (1.6-2.3) mg/dL AST (14-36) U/L Alkaline Phosphatase (38-126) U/L Total Protein (6.3-8.2) g/dL Albumin (3.5-5.0) g/dL Arterial Blood Potassium (3.4-4.5) mmol/L Arterial Blood Glucose (75-99) mg/dL U Benzodiazepines Scrn (NotDetected) Urine Cocaine Screen (NotDetected) Crossmatch 12/22/21 12/22/21 12/22/21 Range/Units 03:55 03:55 03:55 RBC 2.20 L (3.80-5.40) m/uL Hgb 5.9 L* (11.4-16.0) gm/dL Hct 19.4 L* (34.0-46.0) % MCHC 30.3 L (31.0-37.0) g/dL RDW 16.4 H (11.5-15.5) % Plt Count 99 L (150-450) k/uL Lymphocytes # (1.0-4.8) k/uL PT (9.0-12.0) sec APTT (22.0-30.0) sec ABG pH (7.35-7.45) ABG pCO2 (35-45) mmHg ABG pO2 (83-108) mmHg ABG HCO3 (21-25) mmol/L ABG Total CO2 (19-24) mmol/L ABG O2 Saturation (94-97) % ABG Hematocrit (34.0-46.0) % ABG Potassium (3.4-4.5) mmol/L ABG Ionized Calcium (4.5-5.3) mg/dL ABG Glucose (75-99) mg/dL ABG Lactic Acid (0.5-1.6) mmol/L Hemoglobin (11.4-16.0) gm/dL Sodium (137-145) mmol/L Chloride 108 H (98-107) mmol/L Creatinine 1.05 H (0.52-1.04) mg/dL Glucose 114 H (74-99) mg/dL POC Glucose (mg/dL) 137 H (75-99) mg/dL Calcium 7.7 L (8.4-10.2) mg/dL Magnesium (1.6-2.3) mg/dL AST 53 H (14-36) U/L Alkaline Phosphatase <20 L (38-126) U/L Total Protein 4.6 L (6.3-8.2) g/dL Albumin 2.9 L (3.5-5.0) g/dL Arterial Blood Potassium (3.4-4.5) mmol/L Arterial Blood Glucose (75-99) mg/dL U Benzodiazepines Scrn (NotDetected) Urine Cocaine Screen (NotDetected) Crossmatch 12/22/21 12/22/21 12/22/21 Range/Units 04:52 04:57 05:25 RBC (3.80-5.40) m/uL Hgb (11.4-16.0) gm/dL Hct (34.0-46.0) % MCHC (31.0-37.0) g/dL RDW (11.5-15.5) % Plt Count (150-450) k/uL Lymphocytes # (1.0-4.8) k/uL PT (9.0-12.0) sec APTT (22.0-30.0) sec ABG pH (7.35-7.45) ABG pCO2 (35-45) mmHg ABG pO2 68 L (83-108) mmHg ABG HCO3 26 H (21-25) mmol/L ABG Total CO2 27 H (19-24) mmol/L ABG O2 Saturation (94-97) % ABG Hematocrit (34.0-46.0) % ABG Potassium (3.4-4.5) mmol/L ABG Ionized Calcium (4.5-5.3) mg/dL ABG Glucose (75-99) mg/dL ABG Lactic Acid (0.5-1.6) mmol/L Hemoglobin (11.4-16.0) gm/dL Sodium (137-145) mmol/L Chloride (98-107) mmol/L Creatinine (0.52-1.04) mg/dL Glucose (74-99) mg/dL POC Glucose (mg/dL) 159 H (75-99) mg/dL Calcium (8.4-10.2) mg/dL Magnesium (1.6-2.3) mg/dL AST (14-36) U/L Alkaline Phosphatase (38-126) U/L Total Protein (6.3-8.2) g/dL Albumin (3.5-5.0) g/dL Arterial Blood Potassium (3.4-4.5) mmol/L Arterial Blood Glucose (75-99) mg/dL U Benzodiazepines Scrn (NotDetected) Urine Cocaine Screen (NotDetected) Crossmatch See Detail 12/22/21 12/22/21 Range/Units 05:56 06:48 RBC (3.80-5.40) m/uL Hgb (11.4-16.0) gm/dL Hct (34.0-46.0) % MCHC (31.0-37.0) g/dL RDW (11.5-15.5) % Plt Count (150-450) k/uL Lymphocytes # (1.0-4.8) k/uL PT (9.0-12.0) sec APTT (22.0-30.0) sec ABG pH (7.35-7.45) ABG pCO2 (35-45) mmHg ABG pO2 (83-108) mmHg ABG HCO3 (21-25) mmol/L ABG Total CO2 (19-24) mmol/L ABG O2 Saturation (94-97) % ABG Hematocrit (34.0-46.0) % ABG Potassium (3.4-4.5) mmol/L ABG Ionized Calcium (4.5-5.3) mg/dL ABG Glucose (75-99) mg/dL ABG Lactic Acid (0.5-1.6) mmol/L Hemoglobin (11.4-16.0) gm/dL Sodium (137-145) mmol/L Chloride (98-107) mmol/L Creatinine (0.52-1.04) mg/dL Glucose (74-99) mg/dL POC Glucose (mg/dL) 154 H 151 H (75-99) mg/dL Calcium (8.4-10.2) mg/dL Magnesium (1.6-2.3) mg/dL AST (14-36) U/L Alkaline Phosphatase (38-126) U/L Total Protein (6.3-8.2) g/dL Albumin (3.5-5.0) g/dL Arterial Blood Potassium (3.4-4.5) mmol/L Arterial Blood Glucose (75-99) mg/dL U Benzodiazepines Scrn (NotDetected) Urine Cocaine Screen (NotDetected) Crossmatch - Imaging and Cardiology Chest x-ray: report reviewed, image reviewed Assessment and Plan Assessment: 1. Coronary artery disease with left main disease, status post three-vessel CABG 2. History of hypertension, currently hypotensive on levo 3. Current tobacco dependence 4. Mild COPD, preoperative FEV1 was 73% of predicted 5. Daily EtOH use (1 pint per day of liquor) 6. Occasional marijuana and cocaine use (UDS was positive for cocaine on admission) 7. Hepatitis C 8. CVA 20 years ago 9. Solitary kidney. 10. Postoperative acute blood loss anemia and thrombocytopenia, expected Plan: 1. Continue aspirin, statin, Plavix, beta briana therapy. Wean levo as tolerated. Will wean Primacor as tolerated 2. Ventilator management, bronchodilators per pulmonology. Once extubated Will encourage incentive spirometry use 10 times every hour while awake 3. Once extubated Will increase activity, ambulate as tolerated. PT/OT/cardiac rehab consulted 4. Will monitor daily labs and x-rays. Electrolyte replacement per protocol. Will recheck hemoglobin 2 hours post blood transfusion 5. GI/DVT prophylaxis 6. Pain control current medication regimen 7. CIWA protocol 8. Insulin management per primary care services. Patient is not diabetic, preoperative hemoglobin A1c 5.4% 9. Patient counseled preoperatively and will continue to be counseled thr oughout her stay that she should refrain from smoking, drinking, using illicit drugs 10. Continue chest tubes for another 24 hours 11. Continue Young catheter for another 24 hours for strict accurate intake and output. Daily weights 12. More recommendations to follow
[2021-12-22 08:49] LABS: Glucose,Whole Blood 116 mg/dL (75-99)
[2021-12-22 08:51] LABS: ABG Base Excess 1.2 mmol/L; ABG HCO3 26 mmol/L (21-25); ABG Oxygen Saturation 99.1 % (94-97); ABG PCO2 45 mmHg (35-45); ABG PH 7.38 (7.35-7.45); ABG PO2 112 mmHg (83-108); ABG TCO2 28 mmol/L (19-24)
[2021-12-22] MEDS: METOPROLOL TARTRATE 12.5 MG TAB PO SCH ×2 (08:53→20:03)
[2021-12-22] MEDS: HEPARIN SODIUM,PORCINE/PF 5,000 UNIT/0.5 ML SYRINGE SQ SCH ×2 (08:53→16:53)
[2021-12-22] MEDS: THIAMINE 100 MG TAB PO SCH ×2 (08:53→17:19)
[2021-12-22] MEDS: MULTIVITAMINS, THERA 1 EACH TAB PO SCH (08:53)
[2021-12-22] MEDS: ASPIRIN 325 MG TAB PO SCH (08:53)
[2021-12-22] MEDS: ATORVASTATIN 40 MG TAB PO SCH (08:53)
[2021-12-22] MEDS: CLOPIDOGREL 75 MG TAB PO SCH (08:53)
[2021-12-22] MEDS: FLUoxetine HCL 20 MG CAP PO SCH (08:53)
[2021-12-22 08:57] LABS: Allen Test Performed? no
[2021-12-22] MEDS: MUPIROCIN 2% OINT 22 GM TUBE NASAL SCH ×2 (08:57→21:29)
[2021-12-22] MEDS ORDERED: MAGNESIUM HYDROXIDE 2,400 MG/10 ML CUP PO PRN (09:00)
[2021-12-22] MEDS ORDERED: PANTOPRAZOLE 40 MG/10 ML VIAL IVP SCH (09:00)
[2021-12-22 09:57] LABS: Anisocytosis Slight; Basophils % (A) 0 %; Eosinophils # (A) 0.1 k/uL (0-0.7); Eosinophils % (A) 1 %; HCT 20.9 % (34.0-46.0); Hypochromasia Moderate; Lymphocytes # (A) 1.5 k/uL (1.0-4.8); Lymphocytes % (A) 20 %; MCH 28.3 pg (25.0-35.0); MCHC 31.8 g/dL (31.0-37.0); MCV 88.9 fL (80.0-100.0); Mean Platelet Volume 10.2; Monocytes # (A) 0.4 k/uL (0-1.0); Monocytes % (A) 5 %; Neutrophils # (A) 5.5 k/uL (1.3-7.7); Neutrophils % (A) 72 %; Platelet Count 100 k/uL (150-450); RBC 2.35 m/uL (3.80-5.40); WBC 7.6 k/uL (3.8-10.6)
[2021-12-22 09:59] LABS: HGB 6.6 gm/dL (11.4-16.0)
[2021-12-22 10:09] LABS: Glucose,Whole Blood 95 mg/dL (75-99)
[2021-12-22] MEDS: SODIUM CHLORIDE 0.9% 1,000 ML IV SCH (10:11)
[2021-12-22 11:10] LABS: Glucose,Whole Blood 107 mg/dL (75-99)
--- NOTE | 2021-12-22 11:12 | P.PN ---
Subjective Progress Note Date: 12/22/21 Principal diagnosis: Coronary artery disease This is a 66-year-old -Citizen Of [place] female patient of Dr. Allan with past medical history of hypertension, hyperlipidemia, CVA, single kidney with right nephrectomy, history of hepatitis C, COPD, current tobacco dependence, depres steve, daily EtOH use, occasional marijuana and cocaine use. Patient had recently been complaining of chest pain and shortness of breath for 2 months, she was seen by cardiology, she follows with Dr. Hutchison, she underwent stress testing which was abnormal and subsequently she had a heart catheterization that demonstrated 85% left main disease, totally occluded RCA with collateral from the left side, proximal LAD stenosis of 95%, mid LAD stenosis of a 50% with distal LAD stenosis of 70%, and circumflex with mild disease of 30-40%. Due to these findings patient was referred to cardiothoracic surgery for surgical revascularization. Transthoracic echocardiogram from 12/09/2021 showed preserv ed LV function with ejection fraction of 55-60%, mildly increased septal wall thickness and posterior wall thickness. There was mild mitral regurg, aortic valve was structurally normal without significant sclerosis or stenosis or aortic regurgitation, pulmonary artery systolic pressure was normal, there was trace tricuspid regurg. Bedside PFT showed FEV1 of 1.68 L or 73% of predicted, FVC of 2.04, or 68% of predicted, and FEV1 to FEC ratio of 107%, MCV of 63, and this was consistent with mild restrictive pulmonary physiology. Today on 12/21/2021 patient presented to the hospital, and underwent three-vessel coronary artery bypass surgery with DE LA CRUZ to the LAD, SVG to the OM, SVG to the PDA,, left atrial appendage exclusion with 35 mm Atriclip, intraoperative CHAD, and appendectomy aortic scanning. Patient has known history of substance abuse, and her urine drug screen the day of surgery on 12/21/2021 was positive for benzodiazepines and cocaine. We seen the patient in the postoperative period in the ICU, patient is still sedated and intubated, on assist-control mode with a rate of 12, tidal lamberts 400, FiO2 of 100% and PEEP of 5, postoperative blood gas shows pO2 156, pCO2 51, and pH of 7.30 and this was done on the above- mentioned ventilator settings and FiO2 had since been dropped down to 80%. Chest x-ray showing ET tube 2 cm above the henrry, right internal jugular Amigo- Pamela in place, bilateral pleural and mediastinal chest tubes in place. No pneumothorax. Patient is in sinus mechanism with a rate of 71, blood pressure is 148/63, PA pressures 33/16, CVP 7-8, cardiac output is 3.6, and cardiac index is 2.0. With SVR of 1400. Currently patient is on lactated Ringer's at 50 ML per hour, insulin is at 0.5 units per hour, nitroglycerin is up 5 mics per kilo per minute, and milrinone is at 0.3 mics per kilo per minute. Right and left pleural chest tubes connected together, and mediastinal chest tube with minimal sanguinous output. No air leak noted. Young catheter is in place, patient is producing 50-65 ML per hour. On 12/22/2021 patient seen in follow-up in intensive care unit, she is waking up, she remains intubated on mechanical ventilator, on assist-control with a rate of 12, tidal volume was 400, FiO2 of 60% and PEEP of 5. This point his blood gas showed pO2 of 68, pCO2 of 43, and pH of 7.39, and this was done on those above-mentioned ventilator settings, patient has since been placed on pressure support of 5 and CPAP of 5 with FiO2 of 50%. She is doing good, she is opening eyes to voice, follows simple commands, appears to be in no acute distress, hemodynamically she is been stable, she is in sinus mechanism with a rate of 90 BPM, she remains on small amount of milrinone at 0.1 cameron per kilo per minute, she is on lactated Ringer's at 50 ML per hour, norepinephrine at 0.08 units per kilo per minute, Cleviprex and nitroglycerin infusions have been discontinued. Today's chest x-ray has been reviewed showing scattered bibasilar infiltrates likely related to atelectasis. PA pressure is 36/17, CVP is 9, cardiac output is 4.8, and cardiac index is 2.7. This morning's labs have been reviewed showing globin of 5.9, white blood cell count of 6.4, platelet count of 99, sodium is 138, potassium is 4.2, chloride is 108, BUN is 15, creatinine is 1.05. Patient was transfused with 1 unit of packed red blood cells, repeat labs from this morning show hemoglobin if 6.6, and patient will receive another unit of packed red blood cells. Patient has a mediastinal chest tube in place and 1 left pleural and one right pleural white connected together, and pleural chest tubes put out 650 mL of serosanguineous output in the last 24 hours, and there is been 300 mL of serous and was output from the mediastinal chest tube. Remains on cefazolin for prophylactic antibiotic coverage. Patient has been started on aspirin, Lipitor, Plavix, she is on subcu heparin, metoprolol 12.5 mg twice daily, Protonix for GI prophylaxis. She is on Ativan per CIWA protocol, and thiamine replacements. Patient's weaning parameters and blood gas following spontaneous breathing trials were satisfactory, and spontaneous tidal volumes were 375, respiratory rate was 20, minute ventilation was 7.35 L/m, R SBI was 60, and this was -25, and we were unable to obtain vital. Blood gas was satisfactory with pO2 of 112, pCO2 44, and pH of 7.38 on pressure-support of 5 and CPAP of 5 and FiO2 of 50%. Patient looks comfortable, and she had a positive cuff week as well. She was extubated and tolerating extubation well. Midsternal incision is clean dry and intact, chest tube sites are clean dry and intact, left leg and the right leg Tad wrap. Objective - Vital Signs Vital signs: Vital Signs Temp 99.0 F 12/22/21 07:10 Pulse 91 12/22/21 10:00 Resp 31 H 12/22/21 10:00 BP 85/43 12/22/21 07:10 Pulse Ox 97 12/22/21 10:00 FiO2 50 12/22/21 08:13 Intake & Output 12/21/21 12/22/21 12/22/21 18:59 06:59 18:59 Intake Total 973.049 6205.527 619.312 Output Total 2260 1145 220 Balance -9094.845 5950.527 399.312 Weight 77.1 kg Intake: IV 414.5 2532.7 247 ACETAMINOPHEN IV (For NPO 400 ) 1,000 mg In Empty Bag 1 bag @ 400 mls/hr IVPB Q6HR [facility] Rx#:[id number] Albumin 5% 750 Bicarb 100 CARDIAC OUTPUT (0.9 60 380 20 Sodium Chloride) Lactated Ringers 250 650 150 Milrinone-D5w Pmx 20 mg 35.7 In Dextrose/Water 1 100ml .bag @ 0.1 MCG/KG/MIN 2. 127 mls/hr IV .Q24H [facility] Rx#:[id number] Nitroglycerin-D5w Pmx 50 7.5 mg In Dextrose/Water 1 250ml.bag @ 5 MCG/MIN 1.5 mls/hr IV .Q24H [facility] Rx#: [id number] Pressure Bag (0.9 Sodium 45 117 27 Chloride) ceFAZolin 2 gm In Sodium 100 50 Chloride 0.9% 50 ml @ 100 mls/hr IVPB Q8HR [facility] Rx# :[id number] Intake, IV Titration 288.827 425.827 62.312 Amount Albumin Human 5% 250 ml @ 250 250 0 mls/hr IVPB .[facility] Rx#:[id number] Clevidipine Butyrate 25 6.467 mg In Empty Bag 1 bag @ 1 MG/HR 2 mls/hr IV .Q24H [facility] Rx#:[id number] Insulin Regular 100 unit 4.495 16.992 10.538 In Sodium Chloride 0.9% 100 ml @ Per Protocol IV .Q0M [facility] Rx#:[id number] Milrinone-D5w Pmx 20 mg 90.929 In Dextrose/Water 1 100ml .bag @ 0.1 MCG/KG/MIN 2. 127 mls/hr IV .Q24H [facility] Rx#:[id number] Nitroglycerin-D5w Pmx 50 7.1 mg In Dextrose/Water 1 250ml.bag @ 5 MCG/MIN 1.5 mls/hr IV .Q24H [facility] Rx#: [id number] Norepinephrine 4 mg In 10.806 51.774 Sodium Chloride 0.9% 250 ml @ 0.05 MCG/KG/MIN 13. 506 mls/hr IV .[id number] [facility] Rx#:[id number] Sodium Chloride 0.9% 1, 50 000 ml @ 50 mls/hr IV . Q20H [facility] Rx#:[id number] propofoL 1,000 mg In 27.865 Empty Bag 1 bag @ Titrate IV .Q0M [facility] Rx#: [id number] Blood Product 0 310 Rc As-1 Unit 0 310 [id number] Output: Chest Tube Drainage 180 704 120 Chest Tube Bilateral 70 498 70 Lateral Chest Chest Tube Mediastinal 110 206 50 Urine 1380 441 100 Estimated Blood Loss 700 Other: Voiding Method Indwelling Catheter Indwelling Catheter Indwelling Catheter ABP, PAP, CO, CI - Last Documented Arterial Blood Pressure 88/40 Pulmonary Artery Pressure 34/13 Cardiac Output 3.8 Cardiac Index 2.1 - Exam GENERAL EXAM: Sedated, but arousable to voice, and following simple commands intubated, 66-year-old -Citizen Of [place] female patient on pressure-support 5, and CPAP of 5, and FiO2 of 50% comfortable in no apparent distress. HEAD: Normocephalic/atraumatic. EYES: Normal reaction of pupils, equal size. Conjunctiva pink, sclera white. NOSE: Clear with pink turbinates. THROAT: No erythema or exudates. NECK: No masses, no JVD, no thyroid enlargement, no adenopathy. CHEST: No chest wall deformity. Symmetrical expansion. Midsternal incision is clean dry and intact, right and left pleural chest tubes why connected to the same pleural VAC, with 650 mL of thin sanguinous output, and mediastinal chest tube with 300 cc of serosanguinous output, no air leak, AV wires in place connected to temporary pacemaker with backup rate LUNGS: Equal air entry with no crackles, wheeze, rhonchi or dullness. CVS: Regular rate and rhythm, normal S1 and S2, no gallops, no murmurs, no rubs ABDOMEN: Soft, nontender. No hepatosplenomegaly, normal bowel sounds, no guarding or rigidity. EXTREMITIES: No clubbing, no edema, no cyanosis, 2+ pulses and upper and lower extremities. MUSCULOSKELETAL: Muscle strength and tone normal. SPINE: No scoliosis or deformity SKIN: No rashes, left leg interrupted incision covered with Tad wrap - Labs CBC & Chem 7: 12/22/21 09:26 12/22/21 03:55 Labs: Abnormal Lab Results - Last 24 Hours (Table) 12/18/21 12/21/21 12/21/21 Range/Units 11:03 08:37 09:45 RBC (3.80-5.40) m/uL Hgb (11.4-16.0) gm/dL Hct (34.0-46.0) % MCHC (31.0-37.0) g/dL RDW (11.5-15.5) % Plt Count (150-450) k/uL Lymphocytes # (1.0-4.8) k/uL PT (9.0-12.0) sec APTT (22.0-30.0) sec ABG pH 7.31 L (7.35-7.45) ABG pCO2 50 H (35-45) mmHg ABG pO2 225 H 190 H (83-108) mmHg ABG HCO3 (21-25) mmol/L ABG Total CO2 26 H 27 H (19-24) mmol/L ABG O2 Saturation 99.2 H 98.8 H (94-97) % ABG Hematocrit 32 L (34.0-46.0) % ABG Potassium (3.4-4.5) mmol/L ABG Ionized Calcium (4.5-5.3) mg/dL ABG Glucose 106 H 142 H (75-99) mg/dL ABG Lactic Acid 1.7 H (0.5-1.6) mmol/L Hemoglobin 11.1 L 10.5 L (11.4-16.0) gm/dL Sodium (137-145) mmol/L Chloride (98-107) mmol/L Creatinine (0.52-1.04) mg/dL Glucose (74-99) mg/dL POC Glucose (mg/dL) (75-99) mg/dL Calcium (8.4-10.2) mg/dL Magnesium (1.6-2.3) mg/dL AST (14-36) U/L Alkaline Phosphatase (38-126) U/L Total Protein (6.3-8.2) g/dL Albumin (3.5-5.0) g/dL Arterial Blood Potassium (3.4-4.5) mmol/L Arterial Blood Glucose 106 H 142 H (75-99) mg/dL Crossmatch See Detail 12/21/21 12/21/21 12/21/21 Range/Units 10:49 11:26 11:56 RBC (3.80-5.40) m/uL Hgb (11.4-16.0) gm/dL Hct (34.0-46.0) % MCHC (31.0-37.0) g/dL RDW (11.5-15.5) % Plt Count (150-450) k/uL Lymphocytes # (1.0-4.8) k/uL PT (9.0-12.0) sec APTT (22.0-30.0) sec ABG pH (7.35-7.45) ABG pCO2 (35-45) mmHg ABG pO2 362 H 353 H 346 H (83-108) mmHg ABG HCO3 (21-25) mmol/L ABG Total CO2 25 H 25 H 26 H (19-24) mmol/L ABG O2 Saturation 99.7 H 99.8 H 100.0 H (94-97) % ABG Hematocrit 22 L 21 L 21 L (34.0-46.0) % ABG Potassium 5.0 H 5.1 H 5.2 H (3.4-4.5) mmol/L ABG Ionized Calcium 4.2 L 4.1 L 4.2 L (4.5-5.3) mg/dL ABG Glucose 146 H 141 H 139 H (75-99) mg/dL ABG Lactic Acid (0.5-1.6) mmol/L Hemoglobin 7.3 L 6.7 L* 6.9 L* (11.4-16.0) gm/dL Sodium (137-145) mmol/L Chloride (98-107) mmol/L Creatinine (0.52-1.04) mg/dL Glucose (74-99) mg/dL POC Glucose (mg/dL) (75-99) mg/dL Calcium (8.4-10.2) mg/dL Magnesium (1.6-2.3) mg/dL AST (14-36) U/L Alkaline Phosphatase (38-126) U/L Total Protein (6.3-8.2) g/dL Albumin (3.5-5.0) g/dL Arterial Blood Potassium 5.0 H 5.1 H 5.2 H (3.4-4.5) mmol/L Arterial Blood Glucose 146 H 141 H 139 H (75-99) mg/dL Crossmatch 12/21/21 12/21/21 12/21/21 Range/Units 13:21 14:31 14:32 RBC 3.48 L (3.80-5.40) m/uL Hgb 9.3 L D (11.4-16.0) gm/dL Hct 30.5 L (34.0-46.0) % MCHC 30.7 L (31.0-37.0) g/dL RDW 16.1 H (11.5-15.5) % Plt Count 123 L (150-450) k/uL Lymphocytes # (1.0-4.8) k/uL PT (9.0-12.0) sec APTT (22.0-30.0) sec ABG pH (7.35-7.45) ABG pCO2 (35-45) mmHg ABG pO2 149 H (83-108) mmHg ABG HCO3 (21-25) mmol/L ABG Total CO2 26 H (19-24) mmol/L ABG O2 Saturation 98.8 H (94-97) % ABG Hematocrit 26 L (34.0-46.0) % ABG Potassium (3.4-4.5) mmol/L ABG Ionized Calcium (4.5-5.3) mg/dL ABG Glucose 129 H (75-99) mg/dL ABG Lactic Acid 2.0 H (0.5-1.6) mmol/L Hemoglobin 8.5 L (11.4-16.0) gm/dL Sodium (137-145) mmol/L Chloride (98-107) mmol/L Creatinine (0.52-1.04) mg/dL Glucose (74-99) mg/dL POC Glucose (mg/dL) 129 H (75-99) mg/dL Calcium (8.4-10.2) mg/dL Magnesium (1.6-2.3) mg/dL AST (14-36) U/L Alkaline Phosphatase (38-126) U/L Total Protein (6.3-8.2) g/dL Albumin (3.5-5.0) g/dL Arterial Blood Potassium (3.4-4.5) mmol/L Arterial Blood Glucose 129 H (75-99) mg/dL Crossmatch 12/21/21 12/21/21 12/21/21 Range/Units 14:32 14:32 14:53 RBC (3.80-5.40) m/uL Hgb (11.4-16.0) gm/dL Hct (34.0-46.0) % MCHC (31.0-37.0) g/dL RDW (11.5-15.5) % Plt Count (150-450) k/uL Lymphocytes # (1.0-4.8) k/uL PT 12.1 H (9.0-12.0) sec APTT 31.7 H (22.0-30.0) sec ABG pH 7.30 L (7.35-7.45) ABG pCO2 51 H (35-45) mmHg ABG pO2 156 H (83-108) mmHg ABG HCO3 (21-25) mmol/L ABG Total CO2 27 H (19-24) mmol/L ABG O2 Saturation 99.2 H (94-97) % ABG Hematocrit (34.0-46.0) % ABG Potassium (3.4-4.5) mmol/L ABG Ionized Calcium (4.5-5.3) mg/dL ABG Glucose (75-99) mg/dL ABG Lactic Acid (0.5-1.6) mmol/L Hemoglobin (11.4-16.0) gm/dL Sodium 136 L (137-145) mmol/L Chloride 109 H (98-107) mmol/L Creatinine (0.52-1.04) mg/dL Glucose 115 H (74-99) mg/dL POC Glucose (mg/dL) (75-99) mg/dL Calcium 8.0 L (8.4-10.2) mg/dL Magnesium 2.4 H (1.6-2.3) mg/dL AST 81 H (14-36) U/L Alkaline Phosphatase 25 L (38-126) U/L Total Protein 4.5 L (6.3-8.2) g/dL Albumin 2.4 L (3.5-5.0) g/dL Arterial Blood Potassium (3.4-4.5) mmol/L Arterial Blood Glucose (75-99) mg/dL Crossmatch 12/21/21 12/21/21 12/21/21 Range/Units 14:56 16:07 17:13 RBC (3.80-5.40) m/uL Hgb (11.4-16.0) gm/dL Hct (34.0-46.0) % MCHC (31.0-37.0) g/dL RDW (11.5-15.5) % Plt Count (150-450) k/uL Lymphocytes # (1.0-4.8) k/uL PT (9.0-12.0) sec APTT (22.0-30.0) sec ABG pH (7.35-7.45) ABG pCO2 (35-45) mmHg ABG pO2 (83-108) mmHg ABG HCO3 (21-25) mmol/L ABG Total CO2 (19-24) mmol/L ABG O2 Saturation (94-97) % ABG Hematocrit (34.0-46.0) % ABG Potassium (3.4-4.5) mmol/L ABG Ionized Calcium (4.5-5.3) mg/dL ABG Glucose (75-99) mg/dL ABG Lactic Acid (0.5-1.6) mmol/L Hemoglobin (11.4-16.0) gm/dL Sodium (137-145) mmol/L Chloride (98-107) mmol/L Creatinine (0.52-1.04) mg/dL Glucose (74-99) mg/dL POC Glucose (mg/dL) 121 H 141 H 149 H (75-99) mg/dL Calcium (8.4-10.2) mg/dL Magnesium (1.6-2.3) mg/dL AST (14-36) U/L Alkaline Phosphatase (38-126) U/L Total Protein (6.3-8.2) g/dL Albumin (3.5-5.0) g/dL Arterial Blood Potassium (3.4-4.5) mmol/L Arterial Blood Glucose (75-99) mg/dL Crossmatch 12/21/21 12/21/21 12/21/21 Range/Units 17:42 18:19 19:04 RBC 3.29 L (3.80-5.40) m/uL Hgb 9.0 L (11.4-16.0) gm/dL Hct 29.0 L (34.0-46.0) % MCHC 30.9 L (31.0-37.0) g/dL RDW 16.1 H (11.5-15.5) % Plt Count 135 L (150-450) k/uL Lymphocytes # 0.9 L (1.0-4.8) k/uL PT (9.0-12.0) sec APTT (22.0-30.0) sec ABG pH (7.35-7.45) ABG pCO2 (35-45) mmHg ABG pO2 (83-108) mmHg ABG HCO3 (21-25) mmol/L ABG Total CO2 (19-24) mmol/L ABG O2 Saturation (94-97) % ABG Hematocrit (34.0-46.0) % ABG Potassium (3.4-4.5) mmol/L ABG Ionized Calcium (4.5-5.3) mg/dL ABG Glucose (75-99) mg/dL ABG Lactic Acid (0.5-1.6) mmol/L Hemoglobin (11.4-16.0) gm/dL Sodium (137-145) mmol/L Chloride (98-107) mmol/L Creatinine (0.52-1.04) mg/dL Glucose (74-99) mg/dL POC Glucose (mg/dL) 126 H 126 H (75-99) mg/dL Calcium (8.4-10.2) mg/dL Magnesium (1.6-2.3) mg/dL AST (14-36) U/L Alkaline Phosphatase (38-126) U/L Total Protein (6.3-8.2) g/dL Albumin (3.5-5.0) g/dL Arterial Blood Potassium (3.4-4.5) mmol/L Arterial Blood Glucose (75-99) mg/dL Crossmatch 12/21/21 12/21/21 12/21/21 Range/Units 19:47 20:07 20:49 RBC (3.80-5.40) m/uL Hgb (11.4-16.0) gm/dL Hct (34.0-46.0) % MCHC (31.0-37.0) g/dL RDW (11.5-15.5) % Plt Count (150-450) k/uL Lymphocytes # (1.0-4.8) k/uL PT (9.0-12.0) sec APTT (22.0-30.0) sec ABG pH 7.31 L (7.35-7.45) ABG pCO2 (35-45) mmHg ABG pO2 115 H (83-108) mmHg ABG HCO3 20 L (21-25) mmol/L ABG Total CO2 (19-24) mmol/L ABG O2 Saturation 98.6 H (94-97) % ABG Hematocrit (34.0-46.0) % ABG Potassium (3.4-4.5) mmol/L ABG Ionized Calcium (4.5-5.3) mg/dL ABG Glucose (75-99) mg/dL ABG Lactic Acid (0.5-1.6) mmol/L Hemoglobin (11.4-16.0) gm/dL Sodium (137-145) mmol/L Chloride (98-107) mmol/L Creatinine (0.52-1.04) mg/dL Glucose (74-99) mg/dL POC Glucose (mg/dL) 128 H 131 H (75-99) mg/dL Calcium (8.4-10.2) mg/dL Magnesium (1.6-2.3) mg/dL AST (14-36) U/L Alkaline Phosphatase (38-126) U/L Total Protein (6.3-8.2) g/dL Albumin (3.5-5.0) g/dL Arterial Blood Potassium (3.4-4.5) mmol/L Arterial Blood Glucose (75-99) mg/dL Crossmatch 12/21/21 12/21/21 12/21/21 Range/Units 20:54 21:55 21:55 RBC 2.68 L (3.80-5.40) m/uL Hgb 7.2 L D (11.4-16.0) gm/dL Hct 23.7 L (34.0-46.0) % MCHC 30.3 L (31.0-37.0) g/dL RDW 16.3 H (11.5-15.5) % Plt Count 107 L (150-450) k/uL Lymphocytes # 0.9 L (1.0-4.8) k/uL PT (9.0-12.0) sec APTT (22.0-30.0) sec ABG pH (7.35-7.45) ABG pCO2 47 H (35-45) mmHg ABG pO2 82 L (83-108) mmHg ABG HCO3 28 H (21-25) mmol/L ABG Total CO2 30 H (19-24) mmol/L ABG O2 Saturation (94-97) % ABG Hematocrit (34.0-46.0) % ABG Potassium (3.4-4.5) mmol/L ABG Ionized Calcium (4.5-5.3) mg/dL ABG Glucose (75-99) mg/dL ABG Lactic Acid (0.5-1.6) mmol/L Hemoglobin (11.4-16.0) gm/dL Sodium (137-145) mmol/L Chloride (98-107) mmol/L Creatinine (0.52-1.04) mg/dL Glucose (74-99) mg/dL POC Glucose (mg/dL) 130 H (75-99) mg/dL Calcium (8.4-10.2) mg/dL Magnesium (1.6-2.3) mg/dL AST (14-36) U/L Alkaline Phosphatase (38-126) U/L Total Protein (6.3-8.2) g/dL Albumin (3.5-5.0) g/dL Arterial Blood Potassium (3.4-4.5) mmol/L Arterial Blood Glucose (75-99) mg/dL Crossmatch 12/21/21 12/22/21 12/22/21 Range/Units 22:52 00:14 00:53 RBC (3.80-5.40) m/uL Hgb (11.4-16.0) gm/dL Hct (34.0-46.0) % MCHC (31.0-37.0) g/dL RDW (11.5-15.5) % Plt Count (150-450) k/uL Lymphocytes # (1.0-4.8) k/uL PT (9.0-12.0) sec APTT (22.0-30.0) sec ABG pH (7.35-7.45) ABG pCO2 (35-45) mmHg ABG pO2 (83-108) mmHg ABG HCO3 (21-25) mmol/L ABG Total CO2 (19-24) mmol/L ABG O2 Saturation (94-97) % ABG Hematocrit (34.0-46.0) % ABG Potassium (3.4-4.5) mmol/L ABG Ionized Calcium (4.5-5.3) mg/dL ABG Glucose (75-99) mg/dL ABG Lactic Acid (0.5-1.6) mmol/L Hemoglobin (11.4-16.0) gm/dL Sodium (137-145) mmol/L Chloride (98-107) mmol/L Creatinine (0.52-1.04) mg/dL Glucose (74-99) mg/dL POC Glucose (mg/dL) 128 H 124 H 123 H (75-99) mg/dL Calcium (8.4-10.2) mg/dL Magnesium (1.6-2.3) mg/dL AST (14-36) U/L Alkaline Phosphatase (38-126) U/L Total Protein (6.3-8.2) g/dL Albumin (3.5-5.0) g/dL Arterial Blood Potassium (3.4-4.5) mmol/L Arterial Blood Glucose (75-99) mg/dL Crossmatch 12/22/21 12/22/21 12/22/21 Range/Units 01:56 02:51 03:55 RBC 2.20 L (3.80-5.40) m/uL Hgb 5.9 L* (11.4-16.0) gm/dL Hct 19.4 L* (34.0-46.0) % MCHC 30.3 L (31.0-37.0) g/dL RDW 16.4 H (11.5-15.5) % Plt Count 99 L (150-450) k/uL Lymphocytes # (1.0-4.8) k/uL PT (9.0-12.0) sec APTT (22.0-30.0) sec ABG pH (7.35-7.45) ABG pCO2 (35-45) mmHg ABG pO2 (83-108) mmHg ABG HCO3 (21-25) mmol/L ABG Total CO2 (19-24) mmol/L ABG O2 Saturation (94-97) % ABG Hematocrit (34.0-46.0) % ABG Potassium (3.4-4.5) mmol/L ABG Ionized Calcium (4.5-5.3) mg/dL ABG Glucose (75-99) mg/dL ABG Lactic Acid (0.5-1.6) mmol/L Hemoglobin (11.4-16.0) gm/dL Sodium (137-145) mmol/L Chloride (98-107) mmol/L Creatinine (0.52-1.04) mg/dL Glucose (74-99) mg/dL POC Glucose (mg/dL) 117 H 111 H (75-99) mg/dL Calcium (8.4-10.2) mg/dL Magnesium (1.6-2.3) mg/dL AST (14-36) U/L Alkaline Phosphatase (38-126) U/L Total Protein (6.3-8.2) g/dL Albumin (3.5-5.0) g/dL Arterial Blood Potassium (3.4-4.5) mmol/L Arterial Blood Glucose (75-99) mg/dL Crossmatch 12/22/21 12/22/21 12/22/21 Range/Units 03:55 03:55 04:52 RBC (3.80-5.40) m/uL Hgb (11.4-16.0) gm/dL Hct (34.0-46.0) % MCHC (31.0-37.0) g/dL RDW (11.5-15.5) % Plt Count (150-450) k/uL Lymphocytes # (1.0-4.8) k/uL PT (9.0-12.0) sec APTT (22.0-30.0) sec ABG pH (7.35-7.45) ABG pCO2 (35-45) mmHg ABG pO2 68 L (83-108) mmHg ABG HCO3 26 H (21-25) mmol/L ABG Total CO2 27 H (19-24) mmol/L ABG O2 Saturation (94-97) % ABG Hematocrit (34.0-46.0) % ABG Potassium (3.4-4.5) mmol/L ABG Ionized Calcium (4.5-5.3) mg/dL ABG Glucose (75-99) mg/dL ABG Lactic Acid (0.5-1.6) mmol/L Hemoglobin (11.4-16.0) gm/dL Sodium (137-145) mmol/L Chloride 108 H (98-107) mmol/L Creatinine 1.05 H (0.52-1.04) mg/dL Glucose 114 H (74-99) mg/dL POC Glucose (mg/dL) 137 H (75-99) mg/dL Calcium 7.7 L (8.4-10.2) mg/dL Magnesium (1.6-2.3) mg/dL AST 53 H (14-36) U/L Alkaline Phosphatase <20 L (38-126) U/L Total Protein 4.6 L (6.3-8.2) g/dL Albumin 2.9 L (3.5-5.0) g/dL Arterial Blood Potassium (3.4-4.5) mmol/L Arterial Blood Glucose (75-99) mg/dL Crossmatch 12/22/21 12/22/21 12/22/21 Range/Units 04:57 05:25 05:56 RBC (3.80-5.40) m/uL Hgb (11.4-16.0) gm/dL Hct (34.0-46.0) % MCHC (31.0-37.0) g/dL RDW (11.5-15.5) % Plt Count (150-450) k/uL Lymphocytes # (1.0-4.8) k/uL PT (9.0-12.0) sec APTT (22.0-30.0) sec ABG pH (7.35-7.45) ABG pCO2 (35-45) mmHg ABG pO2 (83-108) mmHg ABG HCO3 (21-25) mmol/L ABG Total CO2 (19-24) mmol/L ABG O2 Saturation (94-97) % ABG Hematocrit (34.0-46.0) % ABG Potassium (3.4-4.5) mmol/L ABG Ionized Calcium (4.5-5.3) mg/dL ABG Glucose (75-99) mg/dL ABG Lactic Acid (0.5-1.6) mmol/L Hemoglobin (11.4-16.0) gm/dL Sodium (137-145) mmol/L Chloride (98-107) mmol/L Creatinine (0.52-1.04) mg/dL Glucose (74-99) mg/dL POC Glucose (mg/dL) 159 H 154 H (75-99) mg/dL Calcium (8.4-10.2) mg/dL Magnesium (1.6-2.3) mg/dL AST (14-36) U/L Alkaline Phosphatase (38-126) U/L Total Protein (6.3-8.2) g/dL Albumin (3.5-5.0) g/dL Arterial Blood Potassium (3.4-4.5) mmol/L Arterial Blood Glucose (75-99) mg/dL Crossmatch See Detail 12/22/21 12/22/21 12/22/21 Range/Units 06:48 08:47 08:49 RBC (3.80-5.40) m/uL Hgb (11.4-16.0) gm/dL Hct (34.0-46.0) % MCHC (31.0-37.0) g/dL RDW (11.5-15.5) % Plt Count (150-450) k/uL Lymphocytes # (1.0-4.8) k/uL PT (9.0-12.0) sec APTT (22.0-30.0) sec ABG pH (7.35-7.45) ABG pCO2 (35-45) mmHg ABG pO2 112 H (83-108) mmHg ABG HCO3 26 H (21-25) mmol/L ABG Total CO2 28 H (19-24) mmol/L ABG O2 Saturation 99.1 H (94-97) % ABG Hematocrit (34.0-46.0) % ABG Potassium (3.4-4.5) mmol/L ABG Ionized Calcium (4.5-5.3) mg/dL ABG Glucose (75-99) mg/dL ABG Lactic Acid (0.5-1.6) mmol/L Hemoglobin (11.4-16.0) gm/dL Sodium (137-145) mmol/L Chloride (98-107) mmol/L Creatinine (0.52-1.04) mg/dL Glucose (74-99) mg/dL POC Glucose (mg/dL) 151 H 116 H (75-99) mg/dL Calcium (8.4-10.2) mg/dL Magnesium (1.6-2.3) mg/dL AST (14-36) U/L Alkaline Phosphatase (38-126) U/L Total Protein (6.3-8.2) g/dL Albumin (3.5-5.0) g/dL Arterial Blood Potassium (3.4-4.5) mmol/L Arterial Blood Glucose (75-99) mg/dL Crossmatch 12/22/21 Range/Units 09:26 RBC 2.35 L (3.80-5.40) m/uL Hgb 6.6 L* (11.4-16.0) gm/dL Hct 20.9 L (34.0-46.0) % MCHC (31.0-37.0) g/dL RDW 16.0 H (11.5-15.5) % Plt Count 100 L (150-450) k/uL Lymphocytes # (1.0-4.8) k/uL PT (9.0-12.0) sec APTT (22.0-30.0) sec ABG pH (7.35-7.45) ABG pCO2 (35-45) mmHg ABG pO2 (83-108) mmHg ABG HCO3 (21-25) mmol/L ABG Total CO2 (19-24) mmol/L ABG O2 Saturation (94-97) % ABG Hematocrit (34.0-46.0) % ABG Potassium (3.4-4.5) mmol/L ABG Ionized Calcium (4.5-5.3) mg/dL ABG Glucose (75-99) mg/dL ABG Lactic Acid (0.5-1.6) mmol/L Hemoglobin (11.4-16.0) gm/dL Sodium (137-145) mmol/L Chloride (98-107) mmol/L Creatinine (0.52-1.04) mg/dL Glucose (74-99) mg/dL POC Glucose (mg/dL) (75-99) mg/dL Calcium (8.4-10.2) mg/dL Magnesium (1.6-2.3) mg/dL AST (14-36) U/L Alkaline Phosphatase (38-126) U/L Total Protein (6.3-8.2) g/dL Albumin (3.5-5.0) g/dL Arterial Blood Potassium (3.4-4.5) mmol/L Arterial Blood Glucose (75-99) mg/dL Crossmatch Assessment and Plan Plan: Assessment: #1. Symptomatic multivessel coronary artery disease, status post three-vessel coronary artery bypass grafting with DE LA CRUZ to LAD, SVG to the OM, SVG to the PDA, left atrial appendage exclusion with 35 mm Atriclip on 12/21/2021 #2. Routine postoperative ventilator management, patient was successfully weaned and extubated on postoperative day #1, on 12/22/2021 #3. Acute blood loss anemia, an expected outcome of sternotomy, and bypass surgery, requiring transfusion with blood products, patient has received 2 units of packed red blood cells for hemoglobin of 5.9 #4. History of substance abuse including cocaine, EtOH, and marijuana. Urine drug screen on the day of surgery on 12/21/2021 is positive for cocaine and benzodiazepines #5. History of single kidney, with history of nephrectomy #6. Chronic and ongoing tobacco dependence #7. History of CVA #8. Hypertension #9. Hyperlipidemia #10. History of COPD #11. Depression #12. History of hepatitis C Plan: Patient was successfully weaned and extubated today Tolerating extubation well Continue weaning FiO2, encouraged to breathing and coughing Encourage incentive spirometry use Patient is being transfused with 2 units of packed red blood cells per CT surgery Continue monitoring chest tube output, Hemodynamic status, Maintain pain control CIWA protocol GI and DVT prophylaxis Breathing treatments 4 times a day and as needed We'll continue to monitor closely in the intensive care unit today Follow up labs and chest x-ray in the morning Swallow evaluation 6 hours after extubation If patient passes bedside swallow eval proceed with oral diet initiation I have personally seen and examined the patient, performed the documentation and the assessment and plan as written. Number of minutes spent on the visit: [15] Time with Patient: Greater than 30
[2021-12-22 12:04] LABS: Glucose,Whole Blood 124 mg/dL (75-99)
--- NOTE | 2021-12-22 12:17 | P.CRDCN ---
History of Present Illness History of present illness: - . HPI: This is a 66-year-old LAD who underwent cardiac cath by Dr. Hutchison which revealed severe left main and triple-vessel disease. She has other comorbid conditions in the fall of hypertension hyperlipidemia right nephrectomy for unclear reasons and also a CVA in the posture. She also is a smoker and has alcohol abuse in the [place]. Her activity is quite limited. However she is had significant angina and cardiac cath by Dr. Hutchison revealed a left main stenosis proximal LAD stenosis as well as distal LAD stenosis and 100% RCA stenosis. Yesterday she underwent aortocoronary bypass surgery with DE [place] CRUZ to LAD vein graft to the obtuse The circumflex and PDA branch of RCA with ligation of left atrial appendage. She has been extubated this morning she is unresponsive dose of Primacor. She is taking decent urine hemodynamically stable and maintaining sinus rhythm.. RELEVANT PAST MEDICAL HISTORY: History of CVA, right nephrectomy, hypertension hyperlipidemia and possible history of CVA with fair recovery.. MEDICATIONS: See chart ALLERGIES: See chart. REVIEW OF SYSTEMS: See chart. PHYSICIAL EXAM: Vital signs are stable there is no JVD S1-S2 heard normally short systolic murmur noted lungs reveal fair air entry bilaterally abdomen is soft lower extremities reveal diminished pulses central nervous system assessment was not performed a detailed fashion but grossly no focal deficits.. IMPRESSION: 1. CAD with bypass surgery yesterday 3 grafts stable doing well postop one small dose of Primacor. 2. Benign hypertension. 3. Hypercholesterolemia. 4. History of CVA. 5. History of right nephrectomy. RECOMMENDATIONS: [Patient is maintaining sinus rhythm. We will continue current medications and pursue aggressive pulmonary toilet and incentive spirometry. We will continue to follow with interest. Past Medical History Past Medical History: Asthma, Coronary Artery Disease (CAD), Chest Pain / Angina, COPD, CVA/TIA, Hyperlipidemia, Hypertension, Liver Disease, Rheumatoid Arthritis (RA) Additional Past Medical History / Comment(s): SOB w/exertion, hx. Hepatitis C, couple TIA's in past, only has 1 kidney, other kidney non-functioning History of Any Multi-Drug Resistant Organisms: None Reported Past Surgical History: Cholecystectomy, Heart Catheterization Additional Past Surgical History / Comment(s): surg. for kidney stones; right nephrectomy Past Anesthesia/Blood Transfusion Reactions: No Reported Reaction Smoking Status: Current every day smoker - Past Family History Mother Family Medical History: Liver Disease Additional Family Medical History / Comment(s): Mother of liver disease Medications and Allergies Home Medications Medication Instructions Recorded Confirmed Type Albuterol Sulfate [Proair Hfa] 1 - 2 puff INHALATION Q6HR PRN 12/07/21 12/17/21 History Aspirin 81 mg PO DAILY 12/07/21 12/21/21 History Diltiazem Cd [Cardizem CD] 180 mg PO DAILY 12/07/21 12/21/21 History FLUoxetine HCL [PROzac] 20 mg PO DAILY 12/07/21 12/21/21 History LORazepam [Ativan] 0.5 mg PO BID PRN 12/07/21 12/21/21 History Meloxicam [Mobic] 7.5 mg PO DAILY 12/07/21 12/21/21 History Metoprolol Succinate (ER) [Toprol 25 mg PO DAILY 12/07/21 12/21/21 History Xl] Nitroglycerin Sl Tabs [Nitrostat] 0.4 mg SUBLINGUAL Q5M PRN 12/07/21 12/17/21 History traZODone HCL [Desyrel] 100 mg PO HS 12/07/21 12/21/21 History Allergies Allergy/AdvReac Type Severity Reaction Status Date / Time pentazocine [From Amalia] Allergy Nausea & Verified 12/21/21 05:51 Vomiting Physical Exam Vitals: Vital Signs Temp Pulse Resp BP Pulse Ox FiO2 12/22/21 11:57 99.5 F 96 131/56 95 12/22/21 11:45 92 12/22/21 11:34 92 12/22/21 11:27 99.5 F 93 120/52 95 12/22/21 11:17 99.3 F 93 102/48 12/22/21 11:15 99.3 F 95 108/49 96 12/22/21 11:00 93 26 H 96 12/22/21 10:30 90 22 97 12/22/21 10:00 91 31 H 97 12/22/21 09:30 92 26 H 96 12/22/21 09:00 92 16 99 12/22/21 08:30 88 19 99 12/22/21 08:15 87 12/22/21 08:13 50 12/22/21 08:07 89 12/22/21 08:00 88 24 100 60 12/22/21 07:30 86 16 100 12/22/21 07:16 60 12/22/21 07:10 99.0 F 84 14 85/43 100 12/22/21 07:00 86 16 91/53 100 40 12/22/21 06:42 99.5 F 87 16 86/42 100 12/22/21 06:32 99.9 F H 92 15 82/41 99 12/22/21 06:30 93 14 100 12/22/21 06:00 95 24 100 12/22/21 05:30 94 25 H 100 12/22/21 05:00 96 18 100 60 12/22/21 04:30 84 20 93 L 12/22/21 04:00 92 20 92/53 95 80 12/22/21 03:30 93 9 L 110/66 96 40 12/22/21 03:00 90 20 96 40 12/22/21 02:30 87 21 96 12/22/21 02:00 87 13 96 40 12/22/21 01:30 90 16 93 L 12/22/21 01:00 85 20 95 40 12/22/21 00:30 87 16 96 12/22/21 00:00 94 10 L 123/68 97 40 12/21/21 23:59 80 12/21/21 23:52 80 12/21/21 23:37 92 12/21/21 23:30 86 13 87/53 98 12/21/21 23:15 40 12/21/21 23:03 86 9 L 107/59 96 12/21/21 23:00 86 19 97 40 12/21/21 22:30 87 14 96 12/21/21 22:00 85 17 107/59 96 40 12/21/21 21:30 84 14 93 L 12/21/21 21:00 83 15 94 L 40 12/21/21 20:30 84 15 96 12/21/21 20:00 83 14 101/54 95 40 12/21/21 19:52 40 12/21/21 19:30 81 17 97 50 12/21/21 19:25 50 12/21/21 19:24 76 12/21/21 19:13 89 12 98 50 12/21/21 19:09 84 12/21/21 19:00 77 16 98 60 12/21/21 18:30 75 20 95 12/21/21 18:08 60 12/21/21 18:00 76 19 96 60 12/21/21 17:30 71 19 96 70 12/21/21 17:01 70 12/21/21 17:00 71 17 94 L 70 12/21/21 16:45 73 12 94 L 12/21/21 16:30 70 14 93 L 12/21/21 16:15 69 13 92 L 12/21/21 16:00 70 13 93 L 80 12/21/21 15:45 71 14 94 L 12/21/21 15:30 58 L 12 92 L 12/21/21 15:16 67 12 80 12/21/21 15:15 67 12 100 12/21/21 15:10 67 12 100 12/21/21 15:00 70 12 100 100 12/21/21 14:50 68 12 100 12/21/21 14:45 12 100 12/21/21 14:40 69 31 H 99 12/21/21 14:30 36.4 F L 68 13 99 100 12/21/21 14:27 100 12/21/21 14:23 69 12 12/21/21 14:20 100 Intake and Output 12/21/21 12/22/21 12/22/21 22:59 06:59 14:59 Intake Total 1168.387 1791.616 722.433 Output Total 962 803 380 Balance 856.887 906.616 342.433 Intake: IV 1222.7 1592.0 306 ACETAMINOPHEN IV (For NPO 400 ) 1,000 mg In Empty Bag 1 bag @ 400 mls/hr IVPB Q6HR [facility] Rx#:[id number] Albumin 5% 500 250 Bicarb 100 CARDIAC OUTPUT (0.9 130 290 20 Sodium Chloride) Lactated Ringers 400 450 200 Milrinone-D5w Pmx 20 mg 14.7 21.0 In Dextrose/Water 1 100ml .bag @ 0.1 MCG/KG/MIN 2. 127 mls/hr IV .Q24H [facility] Rx#:[id number] Nitroglycerin-D5w Pmx 50 6.0 mg In Dextrose/Water 1 250ml.bag @ 5 MCG/MIN 1.5 mls/hr IV .Q24H [facility] Rx#: [id number] Pressure Bag (0.9 Sodium 72 81 36 Chloride) ceFAZolin 2 gm In Sodium 100 50 Chloride 0.9% 50 ml @ 100 mls/hr IVPB Q8HR [facility] Rx# :[id number] Intake, IV Titration 596.187 117.616 106.433 Amount Albumin Human 5% 250 ml @ 500 0 mls/hr IVPB .[facility] Rx#:[id number] Clevidipine Butyrate 25 6.467 mg In Empty Bag 1 bag @ 1 MG/HR 2 mls/hr IV .Q24H [facility] Rx#:[id number] Insulin Regular 100 unit 5.606 15.881 10.538 In Sodium Chloride 0.9% 100 ml @ Per Protocol IV .Q0M [facility] Rx#:[id number] Milrinone-D5w Pmx 20 mg 90.929 In Dextrose/Water 1 100ml .bag @ 0.1 MCG/KG/MIN 2. 127 mls/hr IV .Q24H [facility] Rx#:[id number] Nitroglycerin-D5w Pmx 50 7.1 mg In Dextrose/Water 1 250ml.bag @ 5 MCG/MIN 1.5 mls/hr IV .Q24H [facility] Rx#: [id number] Norepinephrine 4 mg In 10.806 95.895 Sodium Chloride 0.9% 250 ml @ 0.05 MCG/KG/MIN 13. 506 mls/hr IV .[id number] [facility] Rx#:[id number] Sodium Chloride 0.9% 1, 50 000 ml @ 50 mls/hr IV . Q20H [facility] Rx#:[id number] propofoL 1,000 mg In 27.014 Empty Bag 1 bag @ Titrate IV .Q0M [facility] Rx#: [id number] Blood Product 0 310 Unit 0 Rc As-1 Unit 0 310 [id number] Output: Chest Tube Drainage 337 522 260 Chest Tube Bilateral 208 360 190 Lateral Chest Chest Tube Mediastinal 129 162 70 Urine 625 281 120 Other: Voiding Method Indwelling Catheter Indwelling Catheter Indwelling Catheter Weight 77.1 kg ABP, PAP, CO, CI - Last 8 Hours Arterial Blood Pressure 103/48 Arterial Blood Pressure 97/48 Arterial Blood Pressure 88/40 Arterial Blood Pressure 96/44 Arterial Blood Pressure 113/51 Arterial Blood Pressure 91/45 Arterial Blood Pressure 91/46 Arterial Blood Pressure 90/45 Arterial Blood Pressure 80/41 Arterial Blood Pressure 83/41 Arterial Blood Pressure 98/45 Arterial Blood Pressure 120/53 Arterial Blood Pressure 128/51 Arterial Blood Pressure 81/39 Pulmonary Artery Pressure 47/23 Pulmonary Artery Pressure 43/22 Pulmonary Artery Pressure 34/13 Pulmonary Artery Pressure 38/16 Pulmonary Artery Pressure 37/17 Pulmonary Artery Pressure 37/18 Pulmonary Artery Pressure 36/18 Pulmonary Artery Pressure 38/17 Pulmonary Artery Pressure 35/17 Pulmonary Artery Pressure 31/17 Pulmonary Artery Pressure 37/18 Pulmonary Artery Pressure 41/21 Pulmonary Artery Pressure 35/19 Pulmonary Artery Pressure 34/21 Cardiac Output 4.8 Cardiac Output 3.8 Cardiac Output 3.8 Cardiac Output 3.8 Cardiac Output 4.5 Cardiac Output 4.5 Cardiac Output 5.6 Cardiac Index 2.7 Cardiac Index 2.1 Cardiac Index 2.1 Cardiac Index 2.1 Cardiac Index 2.5 Cardiac Index 2.5 Cardiac Index 3.2 Results 12/22/21 09:26 12/22/21 03:55 Cardiac Enzymes 12/21/21 12/22/21 Range/Units 14:32 03:55 AST 81 H 53 H (14-36) U/L Coagulation 12/21/21 Range/Units 14:32 PT 12.1 H (9.0-12.0) sec APTT 31.7 H (22.0-30.0) sec CBC 12/21/21 12/21/21 12/21/21 Range/Units 14:32 17:42 20:54 WBC 8.0 8.3 6.3 (3.8-10.6) k/uL RBC 3.48 L 3.29 L 2.68 L (3.80-5.40) m/uL Hgb 9.3 L D 9.0 L 7.2 L D (11.4-16.0) gm/dL Hct 30.5 L 29.0 L 23.7 L (34.0-46.0) % Plt Count 123 L 135 L 107 L (150-450) k/uL 12/22/21 12/22/21 Range/Units 03:55 09:26 WBC 6.4 7.6 (3.8-10.6) k/uL RBC 2.20 L 2.35 L (3.80-5.40) m/uL Hgb 5.9 L* 6.6 L* (11.4-16.0) gm/dL Hct 19.4 L* 20.9 L (34.0-46.0) % Plt Count 99 L 100 L (150-450) k/uL Comprehensive Metabolic Panel 12/21/21 12/22/21 Range/Units 14:32 03:55 Sodium 136 L 138 (137-145) mmol/L Potassium 4.7 4.2 (3.5-5.1) mmol/L Chloride 109 H 108 H (98-107) mmol/L Carbon Dioxide 23 26 (22-30) mmol/L BUN 13 15 (7-17) mg/dL Creatinine 0.71 1.05 H (0.52-1.04) mg/dL Glucose 115 H 114 H (74-99) mg/dL Calcium 8.0 L 7.7 L (8.4-10.2) mg/dL AST 81 H 53 H (14-36) U/L ALT 21 13 (4-34) U/L Alkaline Phosphatase 25 L <20 L (38-126) U/L Total Protein 4.5 L 4.6 L (6.3-8.2) g/dL Albumin 2.4 L 2.9 L (3.5-5.0) g/dL Current Medications Generic Name Dose Route Start Last Admin Trade Name Freq PRN Reason Stop Dose Admin Hydrocodone Bitart/Acetaminophen 2 each 12/22/21 01:24 Hydrocodone/Apap 5-325mg 1 Each Tab PO Q4HR PRN Severe Pain Hydrocodone Bitart/Acetaminophen 1 each 12/22/21 01:24 12/22/21 03:20 Hydrocodone/Apap 5-325mg 1 Each Tab PO 1 each Q4HR PRN Administration Moderate Pain Albuterol/Ipratropium 3 ml 12/21/21 13:58 12/21/21 23:36 Ipratropium-Albuterol 3 Ml Neb INHALATION 3 ml RT-Q2H PRN Administration Shortness Of Breath Or Wheezing Albuterol/Ipratropium 3 ml 12/21/21 20:00 12/22/21 11:34 Ipratropium-Albuterol 3 Ml Neb INHALATION 3 ml RT-QID YADY Administration Aspirin 325 mg 12/22/21 09:00 12/22/21 08:53 Aspirin 325 Mg Tab PO 325 mg DAILY YADY Administration Atorvastatin Calcium 40 mg 12/22/21 09:00 12/22/21 08:53 Atorvastatin 40 Mg Tab PO 40 mg DAILY YADY Administration Benzocaine/Menthol 1 each 12/21/21 13:58 Benzocaine/Menthol Lozeng 1 Each Lozenge MUCOUS MEM Q2H PRN Sore Throat Bisacodyl 10 mg 12/22/21 09:00 Bisacodyl 10 Mg Supp RECTAL DAILY PRN Constipation Clopidogrel Bisulfate 75 mg 12/22/21 09:00 12/22/21 08:53 Clopidogrel 75 Mg Tab PO 75 mg DAILY YADY Administration Fluoxetine HCl 20 mg 12/22/21 09:00 12/22/21 08:53 Fluoxetine Hcl 20 Mg Cap PO 20 mg DAILY YADY Administration Heparin Sodium (Porcine) 5,000 unit 12/21/21 16:00 12/22/21 08:53 Heparin Sodium,Porcine/Pf 5,000 Unit/0.5 Ml Syringe SQ Not Given Q8HR [facility]Y Milrinone Lactate/Dextrose 20 100 mls @ 2.127 mls/hr 12/21/21 14:00 12/22/21 05:10 mg/ IV Solution IV 0.1 mcg/kg/min .Q24H YADY 2.127 mls/hr Infusion 0.1 MCG/KG/MIN Amiodarone HCl 150 mg/ 103 mls @ 618 mls/hr 12/21/21 13:58 Dextrose/Water IV .Q10M PRN A.FIB/FLUTTER Protocol Amiodarone HCl 360 mg/ 207.2 mls @ 34.533 mls/hr 12/21/21 13:58 Dextrose/Water IV .Q6H PRN A.FIB/FLUTTER Protocol 1 MG/MIN Amiodarone HCl 450 mg/ 250 mls @ 16.667 mls/hr 12/21/21 13:58 Dextrose/Water IV .Q15H PRN A.FIB/FLUTTER Protocol 0.5 MG/MIN Albumin Human 250 ml/ IV 250 mls @ 250 mls/hr 12/21/21 13:58 12/22/21 04:03 Solution IVPB 12/23/21 13:59 250 mls/hr Q1HR PRN Administration For Volume Protocol Calcium Gluconate/Sodium 100 mls @ 100 mls/hr 12/21/21 13:58 Chloride 2 gm/ IV Solution IVPB 01/05/22 13:59 ONCE PRN Ionized Calcium less than 4.4 Insulin Human Regular 100 unit 101 mls @ 0 mls/hr 12/21/21 15:00 12/22/21 12:04 / Sodium Chloride IV 1.5 unit/hr .Q0M [facility]Y 1.515 mls/hr Titration Protocol Per Protocol Sodium Chloride 1,000 mls @ 50 mls/hr 12/21/21 13:58 12/22/21 10:11 Saline 0.9% IV Not Given .Q20H [facility] Norepinephrine Bitartrate 4 mg 254 mls @ 13.506 mls/hr 12/22/21 05:15 12/22/21 11:32 / Sodium Chloride IV 0.06 mcg/kg/min .[id number] Y[facility]Y 16.208 mls/hr Titration Protocol 0.05 MCG/KG/MIN Lorazepam 1 mg 12/21/21 13:58 Lorazepam 2 Mg/Ml Inj IV Q2HR PRN CIWA 8 or 9 Lorazepam 1 mg 12/21/21 13:58 Lorazepam 2 Mg/Ml Inj IV Q1HR PRN CIWA 10 to 15 Lorazepam 2 mg 12/21/21 13:58 Lorazepam 2 Mg/Ml Inj IV 01/20/22 13:59 Q10M PRN CIWA 16 or higher Magnesium Hydroxide 2,400 mg 12/22/21 09:00 Magnesium Hydroxide 2,400 Mg/10 Ml Cup PO BID PRN Constipation Metoclopramide HCl 10 mg 12/21/21 13:58 Metoclopramide 5 Mg/Ml 2 Ml Vial IVP Q4H PRN Nausea And Vomiting Metoprolol Tartrate 12.5 mg 12/22/21 09:00 12/22/21 08:53 Metoprolol Tartrate 12.5 Mg Tab PO Not Given BID [facility]Y Miscellaneous Information 1 each 12/21/21 13:58 Potassium Replacement Protocol 1 Each Misc MISCELLANE DAILY PRN Per Protocol Protocol Miscellaneous Information 1 each 12/21/21 13:58 Magnesium Replacement Protocol 1 Each Misc MISCELLANE DAILY PRN Per Protocol Protocol Multivitamins 1 each 12/22/21 09:00 12/22/21 08:53 Multivitamins, Thera 1 Each Tab PO 1 each DAILY [facility]Y Administration Mupirocin 1 applic 12/21/21 21:00 12/22/21 08:57 Mupirocin 2% Oint 22 Gm Tube NASAL 12/24/21 21:01 1 applic BID Y[facility]Y Administration Ondansetron HCl 4 mg 12/21/21 13:58 Ondansetron 4 Mg/2 Ml Vial IVP Q6HR PRN Nausea And Vomiting Pantoprazole Sodium 40 mg 12/23/21 07:30 Pantoprazole 40 Mg Tablet PO [id number] YADY Senna/Docusate Sodium 2 each 12/22/21 21:00 Sennosides-Docusate Sodium 1 Each Tab PO HS Y[facility]Y Sodium Chloride 10 ml 12/21/21 21:00 12/22/21 08:57 Sodium Chloride 0.9% Flush 10 Ml Syringe IV 10 ml BID YADY Administration Thiamine HCl 100 mg 12/22/21 07:30 12/22/21 08:53 Thiamine 100 Mg Tab PO 100 mg BID-W/MEALS YADY Administration Intake and Output 12/21/21 12/22/21 12/22/21 22:59 06:59 14:59 Intake Total 7149.528 6409.616 722.433 Output Total 962 803 380 Balance 856.887 906.616 342.433 Intake: IV 1222.7 1592.0 306 ACETAMINOPHEN IV (For NPO 400 ) 1,000 mg In Empty Bag 1 bag @ 400 mls/hr IVPB Q6HR [facility] Rx#:[id number] Albumin 5% 500 250 Bicarb 100 CARDIAC OUTPUT (0.9 130 290 20 Sodium Chloride) Lactated Ringers 400 450 200 Milrinone-D5w Pmx 20 mg 14.7 21.0 In Dextrose/Water 1 100ml .bag @ 0.1 MCG/KG/MIN 2. 127 mls/hr IV .Q24H [facility] Rx#:[id number] Nitroglycerin-D5w Pmx 50 6.0 mg In Dextrose/Water 1 250ml.bag @ 5 MCG/MIN 1.5 mls/hr IV .Q24H [facility] Rx#: [id number] Pressure Bag (0.9 Sodium 72 81 36 Chloride) ceFAZolin 2 gm In Sodium 100 50 Chloride 0.9% 50 ml @ 100 mls/hr IVPB Q8HR [facility] Rx# :[id number] Intake, IV Titration 596.187 117.616 106.433 Amount Albumin Human 5% 250 ml @ 500 0 mls/hr IVPB .[facility] Rx#:[id number] Clevidipine Butyrate 25 6.467 mg In Empty Bag 1 bag @ 1 MG/HR 2 mls/hr IV .Q24H [facility] Rx#:[id number] Insulin Regular 100 unit 5.606 15.881 10.538 In Sodium Chloride 0.9% 100 ml @ Per Protocol IV .Q0M [facility] Rx#:[id number] Milrinone-D5w Pmx 20 mg 90.929 In Dextrose/Water 1 100ml .bag @ 0.1 MCG/KG/MIN 2. 127 mls/hr IV .Q24H [facility] Rx#:[id number] Nitroglycerin-D5w Pmx 50 7.1 mg In Dextrose/Water 1 250ml.bag @ 5 MCG/MIN 1.5 mls/hr IV .Q24H [facility] Rx#: [id number] Norepinephrine 4 mg In 10.806 95.895 Sodium Chloride 0.9% 250 ml @ 0.05 MCG/KG/MIN 13. 506 mls/hr IV .[id number] [facility] Rx#:[id number] Sodium Chloride 0.9% 1, 50 000 ml @ 50 mls/hr IV . Q20H [facility] Rx#:[id number] propofoL 1,000 mg In 27.014 Empty Bag 1 bag @ Titrate IV .Q0M [facility] Rx#: [id number] Blood Product 0 310 Unit 0 Rc As-1 Unit 0 310 [id number] Output: Chest Tube Drainage 337 522 260 Chest Tube Bilateral 208 360 190 Lateral Chest Chest Tube Mediastinal 129 162 70 Urine 625 281 120 Other: Voiding Method Indwelling Catheter Indwelling Catheter Indwelling Catheter Weight 77.1 kg 12/22/21 09:26 12/22/21 03:55
[2021-12-22] MEDS ORDERED: fentaNYL (PF) 50 MCG/ML 2 ML AMP IVP ONE (12:23)
[2021-12-22 14:21] LABS: Glucose,Whole Blood 131 mg/dL (75-99)
[2021-12-22 15:12] LABS: Glucose,Whole Blood 142 mg/dL (75-99)
[2021-12-22] MEDS ORDERED: CLEVIDIPINE BUTYRATE 25 MG/50 ML VIAL IV ONE (15:18)
[2021-12-22 15:59] LABS: Glucose,Whole Blood 127 mg/dL (75-99)
[2021-12-22] MEDS ORDERED: FUROSEMIDE 10 MG/ML 4 ML VIAL IV STA (16:53)
[2021-12-22] MEDS: CLEVIDIPINE BUTYRATE 25 MG in EMPTY BAG 1 BAG IV SCH (17:17)
--- NOTE | 2021-12-22 17:27 | XR ---
EXAMINATION TYPE: XR chest 1V portable DATE OF EXAM: 12/22/2021 4:48 PM COMPARISON: Chest radiographs from 12/22/2021 TECHNIQUE: XR chest 1V portable Frontal view of the chest. CLINICAL INDICATION:Female, 66 years old with history of SOB; FINDINGS: Lungs/Pleura: Small bilateral layering pleural effusions are suggested. Pulmonary vascularity: Mild pulmonary vascular congestion. Heart/mediastinum: Cardiomediastinal silhouette is enlarged and stable. Musculoskeletal: No acute osseous pathology. Other findings: Sternotomy wires and surgical clips are seen within the upper abdomen. Lines/Tubes: Endotracheal tube with distal tip xx cm above the henrry Nasogastric tube with its distal tip and side-port projecting under the diaphragm. Bilateral thoracotomy tube is present without evidence of pneumothorax. Right internal jugular central venous catheter with distal tip at the cavoatrial junction. IMPRESSION: 1. Bilateral thoracotomy tubes without evidence for pneumothorax. 2. Layering bilateral pleural effusions with associated subsegmental atelectasis. These appear incre ased but could be due to patient position. 3. Coronary vascular congestion with cardiomegaly correlate for congestive heart failure
[2021-12-22 18:19] LABS: Glucose,Whole Blood 124 mg/dL (75-99)
[2021-12-22 18:25] LABS: HCT 27.4 % (34.0-46.0); Hypochromasia Slight; MCH 28.9 pg (25.0-35.0); MCHC 32.6 g/dL (31.0-37.0); MCV 88.6 fL (80.0-100.0); Mean Platelet Volume 12.2; RBC 3.09 m/uL (3.80-5.40); RDW 15.8 % (11.5-15.5); WBC 9.6 k/uL (3.8-10.6)
[2021-12-22 18:39] LABS: HGB 8.9 gm/dL (11.4-16.0)
[2021-12-22 19:08] LABS: Glucose,Whole Blood 117 mg/dL (75-99)
[2021-12-22 19:17] LABS: Platelet Count 74 k/uL (150-450)
[2021-12-22 19:18] LABS: Anisocytosis Slight
[2021-12-22 19:20] LABS: Poikilocytosis Slight
[2021-12-22 19:53] LABS: Glucose,Whole Blood 112 mg/dL (75-99)
[2021-12-22] MEDS: SENNOSIDES-DOCUSATE SODIUM 1 EACH TAB PO SCH (20:03)
[2021-12-22 21:34] LABS: Glucose,Whole Blood 140 mg/dL (75-99)
[2021-12-22 22:30] LABS: Glucose,Whole Blood 143 mg/dL (75-99)
[2021-12-23] MEDS: HEPARIN SODIUM,PORCINE/PF 5,000 UNIT/0.5 ML SYRINGE SQ SCH ×4 (00:13→23:58)
[2021-12-23] MEDS: HYDROcodone/APAP 5-325MG 1 EACH TAB PO PRN ×5 (00:17→21:20)
[2021-12-23 00:24] LABS: Glucose,Whole Blood 123 mg/dL (75-99)
[2021-12-23 02:22] LABS: Glucose,Whole Blood 122 mg/dL (75-99)
[2021-12-23 04:25] LABS: Glucose,Whole Blood 122 mg/dL (75-99)
[2021-12-23 05:03] LABS: Basophils % (A) 0 %; Eosinophils % (A) 0 %; HCT 26.4 % (34.0-46.0); HGB 8.2 gm/dL (11.4-16.0); Hypochromasia Slight; Lymphocytes # (A) 1.6 k/uL (1.0-4.8); Lymphocytes % (A) 15 %; MCH 27.5 pg (25.0-35.0); MCHC 31.1 g/dL (31.0-37.0); MCV 88.6 fL (80.0-100.0); Mean Platelet Volume 11.5; Monocytes # (A) 0.7 k/uL (0-1.0); Monocytes % (A) 6 %; Neutrophils # (A) 8.4 k/uL (1.3-7.7); Neutrophils % (A) 77 %; Platelet Count 75 k/uL (150-450); RBC 2.99 m/uL (3.80-5.40); RDW 15.8 % (11.5-15.5)
[2021-12-23 05:20] LABS: Ionized Calcium 5.2 mg/dL (4.5-5.3)
[2021-12-23 05:27] LABS: Albumin 2.7 g/dL (3.5-5.0); Potassium 3.8 mmol/L (3.5-5.1); Total Bilirubin 0.8 mg/dL (0.2-1.3); Total Protein 4.6 g/dL (6.3-8.2)
[2021-12-23] MEDS ORDERED: POTASSIUM BICARBONATE/CIT AC 20 MEQ TABLET.EFF NG-TUBE SCH (06:00)
[2021-12-23] MEDS: PANTOPRAZOLE 40 MG TABLET PO SCH (06:03)
[2021-12-23] MEDS: THIAMINE 100 MG TAB PO SCH ×2 (06:03→18:28)
[2021-12-23 06:14] LABS: Glucose,Whole Blood 144 mg/dL (75-99)
[2021-12-23] MEDS: NOREPINEPHRINE 4 MG in SODIUM CHLORIDE 0.9% 250 ML IV SCH (07:25)
[2021-12-23] MEDS: MILRINONE-D5W PMX 20 MG in DEXTROSE/WATER 1 100ML.BAG IV SCH (07:27)
[2021-12-23] MEDS: SODIUM CHLORIDE 0.9% 1,000 ML IV SCH (07:28)
[2021-12-23] MEDS: IPRATROPIUM-ALBUTEROL 3 ML NEB INHALATION SCH ×4 (07:52→20:16)
[2021-12-23 08:10] LABS: Glucose,Whole Blood 145 mg/dL (75-99)
[2021-12-23] MEDS: ATORVASTATIN 40 MG TAB PO SCH (08:19)
[2021-12-23] MEDS: CLOPIDOGREL 75 MG TAB PO SCH (08:19)
[2021-12-23] MEDS: MUPIROCIN 2% OINT 22 GM TUBE NASAL SCH (08:19)
[2021-12-23] MEDS: MULTIVITAMINS, THERA 1 EACH TAB PO SCH (08:19)
[2021-12-23] MEDS: ASPIRIN 325 MG TAB PO SCH (08:19)
[2021-12-23] MEDS: FLUoxetine HCL 20 MG CAP PO SCH (08:19)
[2021-12-23] MEDS: METOPROLOL TARTRATE 12.5 MG TAB PO SCH (08:19)
--- NOTE | 2021-12-23 08:22 | XR ---
EXAMINATION TYPE: XR chest 1V portable DATE OF EXAM: 12/23/2021 Comparison: 12/22/2021 Clinical History: 66-year-old female postop cardiac surgery Findings: Right IJ [place] catheter. Tip is somewhat peripherally located likely in the right interlobar pulm onary artery branch. Clinically correlate for the desired position. Bilateral chest tubes are noted. No appreciable pneumothorax. Median sternotomy wires with postsurgical clips in the mediastinum. Hear t borderline enlarged. Patchy bilateral opacities persist. Aeration is improving of the lower lungs. Impression: 1. Continued bilateral patchy opacities throughout both with improving aeration in the lower lungs. 2. Bilateral chest tubes. No appreciable pneumothorax. 3. Somewhat peripheral positioning of the [place] catheter tip probably in the region of the right interlobar pulmonary artery. Correlate clinically as to desired position.
[2021-12-23] MEDS ORDERED: FUROSEMIDE 10 MG/ML 4 ML VIAL IV STA (08:27)
--- NOTE | 2021-12-23 08:52 | P.PN ---
Subjective Progress Note Date: 12/23/21 Principal diagnosis: Coronary artery disease with left main disease. Previous medical history of hypertension, current tobacco dependence with mild COPD, daily EtOH use (1 pint per day of liquor), occasional marijuana and cocaine use (UDS was positive for cocaine on admission), hepatitis C, CVA 20 years ago, solitary kidney. POD #2 coronary artery bypass grafting 3 vessels, left internal mammary artery to the left anterior descending artery, reverse saphenous vein graft to the obtuse marginal artery, reverse saphenous vein graft to the posterior descending artery, endoscopic harvesting of the left greater saphenous vein, ligation of the left atrial appendage using a 35 mm AtriClip, epi-aortic ultrasound and intraoperative transesophageal echocardiogram Postoperative acute blood loss anemia and thrombocytopenia, expected given hemodilution and cardiopulmonary bypass pump The patient was seen and examined this morning sitting up in a recliner in the intensive care unit in no acute distress. She was successfully extubated yesterday at 9:10 AM. She remains in sinus rhythm with marginal blood pressure on low dose Primacor, off levo. She received 3 unit packed red blood cells yesterday, hemoglobin 8.2 this morning. She did have some respiratory distress yesterday afternoon with hypoxia, was placed on BiPAP, this morning her O2 sats were 100% on her BiPAP and was going to be switched to high flow nasal cannula per pulmonology. She states pain is controlled on current medication regimen, denies shortness of breath. Asking for water. Right internal jugular [place]/Cordis, right radial arterial line, mediastinal/right/left pleural chest tubes all remain. Objective - Vital Signs Vital signs: Vital Signs Temp 99.7 F H 12/23/21 04:00 Pulse 101 H 12/23/21 08:03 Resp 26 H 12/23/21 07:00 BP 107/61 12/23/21 07:00 Pulse Ox 100 12/23/21 07:00 FiO2 50 12/23/21 08:04 Intake & Output 12/22/21 12/23/21 12/23/21 18:59 06:59 18:59 Intake Total 2696.674 1012.663 82.939 Output Total 1255 1685 35 Balance 1441.674 -672.337 47.939 Weight 76.5 kg Intake: IV 759 928 79 CARDIAC OUTPUT (0.9 60 220 20 Sodium Chloride) Lactated Ringers 550 600 50 Pressure Bag (0.9 Sodium 99 108 9 Chloride) ceFAZolin 2 gm In Sodium 50 Chloride 0.9% 50 ml @ 100 mls/hr IVPB Q8HR YADY Rx# :[id number] Intake, IV Titration 137.674 84.663 3.939 Amount Clevidipine Butyrate 25 5.3 32.6 mg In Empty Bag 1 bag @ 1 MG/HR 2 mls/hr IV .Q24H AYDY Rx#:[id number] Insulin Regular 100 unit 22.432 13.702 3.939 In Sodium Chloride 0.9% 100 ml @ Per Protocol IV .Q0M YADY Rx#:[id number] Norepinephrine 4 mg In 109.942 38.361 Sodium Chloride 0.9% 250 ml @ 0.05 MCG/KG/MIN 13. 506 mls/hr IV .[id number] YADY Rx#:[id number] Oral 250 Blood Product 1550 Rc As-1 Unit 310 [id number] Rc As-1 Unit 310 [id number] Rc As-1 Unit 310 [id number] Output: Chest Tube Drainage 560 630 Chest Tube Bilateral 450 Lateral Chest Chest Tube Left 150 Chest Tube Mediastinal 110 70 Chest Tube Right 410 Urine 695 1055 35 Other: Voiding Method Indwelling Catheter Indwelling Catheter ABP, PAP, CO, CI - Last Documented Arterial Blood Pressure 99/44 Pulmonary Artery Pressure 28/7 Cardiac Output 5.4 Cardiac Index 3.1 - Exam CONSTITUTIONAL: Appears comfortable, cooperative, no acute distress RESPIRATORY: Lungs sounds diminished bilaterally. Respirations even, nonlabored. Currently on BiPAP, FiO2 100%, 12/5. Strong cough. CARDIOVASCULAR: S1, S2 present. Regular rate and rhythm, sinus rhythm on telemetry. Sternum stable. Palpable peripheral pulses bilaterally. No edema present. No calf pain or tenderness noted. Heart hugger in place with patient demonstrating appropriate use. Antiembolism stockings, SCDs present. GASTROINTESTINAL: Abdomen soft, nontender, nondistended. Active bowel sounds present 4 quadrants. Tolerating clear liquids. Negative flatus GENITOURINARY: Young present draining clear, yellow urine. Output overnight 30-60 mL per hour, 1750 mL in the last 24 hours INTEGUMENTARY: Skin is warm and dry with evidence of good perfusion. Anterior chest incision well approximated and covered with dry intact dressing. Left lower extremity EVH site well approximated without redness or drainage. NEUROLOGIC: Cranial nerves II through XII intact MUSKULOSKELETAL: Able to move all extremities, strength equal bilaterally PSYCHIATRIC: Alert and oriented to person place and time, appropriate affect, intact judgment and insight INVASIVE LINES AND TUBES: Mediastinal/left/right pleural chest tubes present and connected to wall suction, no air leaks present. Mediastinal tube with 50 mL serosanguineous drainage overnight, 200 mL in the last 24 hours. Left pleural chest tube with 135 mL serosanguineous drainage overnight, 150 mL in the last 24 hours. Right pleural chest tube with 380 mL serosanguineous drainage overnight, 500 mL last 24 hours. A/V epicardial pacemaker wires present, conne cted to generator, VVI mode with backup rate 50 bpm. Right internal jugular [place]/Cordis, right radial arterial line present. Last CO/CI 5.4/3.1, PA 30/10, CVP 7. - Allied health notes Allied health notes reviewed: nursing - Labs CBC & Chem 7: 12/23/21 03:51 12/23/21 03:51 Labs: Abnormal Lab Results - Last 24 Hours (Table) 12/22/21 12/22/21 12/22/21 Range/Units 05:25 08:47 08:49 WBC (3.8-10.6) k/uL RBC (3.80-5.40) m/uL Hgb (11.4-16.0) gm/dL Hct (34.0-46.0) % RDW (11.5-15.5) % Plt Count (150-450) k/uL Neutrophils # (1.3-7.7) k/uL ABG pO2 112 H (83-108) mmHg ABG HCO3 26 H (21-25) mmol/L ABG Total CO2 28 H (19-24) mmol/L ABG O2 Saturation 99.1 H (94-97) % Chloride (98-107) mmol/L Glucose (74-99) mg/dL POC Glucose (mg/dL) 116 H (75-99) mg/dL Calcium (8.4-10.2) mg/dL AST (14-36) U/L Alkaline Phosphatase (38-126) U/L Total Protein (6.3-8.2) g/dL Albumin (3.5-5.0) g/dL Crossmatch See Detail 12/22/21 12/22/21 12/22/21 Range/Units 09:26 11:09 12:03 WBC (3.8-10.6) k/uL RBC 2.35 L (3.80-5.40) m/uL Hgb 6.6 L* (11.4-16.0) gm/dL Hct 20.9 L (34.0-46.0) % RDW 16.0 H (11.5-15.5) % Plt Count 100 L (150-450) k/uL Neutrophils # (1.3-7.7) k/uL ABG pO2 (83-108) mmHg ABG HCO3 (21-25) mmol/L ABG Total CO2 (19-24) mmol/L ABG O2 Saturation (94-97) % Chloride (98-107) mmol/L Glucose (74-99) mg/dL POC Glucose (mg/dL) 107 H 124 H (75-99) mg/dL Calcium (8.4-10.2) mg/dL AST (14-36) U/L Alkaline Phosphatase (38-126) U/L Total Protein (6.3-8.2) g/dL Albumin (3.5-5.0) g/dL Crossmatch 12/22/21 12/22/21 12/22/21 Range/Units 14:19 15:09 15:58 WBC (3.8-10.6) k/uL RBC (3.80-5.40) m/uL Hgb (11.4-16.0) gm/dL Hct (34.0-46.0) % RDW (11.5-15.5) % Plt Count (150-450) k/uL Neutrophils # (1.3-7.7) k/uL ABG pO2 (83-108) mmHg ABG HCO3 (21-25) mmol/L ABG Total CO2 (19-24) mmol/L ABG O2 Saturation (94-97) % Chloride (98-107) mmol/L Glucose (74-99) mg/dL POC Glucose (mg/dL) 131 H 142 H 127 H (75-99) mg/dL Calcium (8.4-10.2) mg/dL AST (14-36) U/L Alkaline Phosphatase (38-126) U/L Total Protein (6.3-8.2) g/dL Albumin (3.5-5.0) g/dL Crossmatch 12/22/21 12/22/21 12/22/21 Range/Units 18:17 18:21 19:07 WBC (3.8-10.6) k/uL RBC 3.09 L (3.80-5.40) m/uL Hgb 8.9 L D (11.4-16.0) gm/dL Hct 27.4 L (34.0-46.0) % RDW 15.8 H (11.5-15.5) % Plt Count 74 L (150-450) k/uL Neutrophils # (1.3-7.7) k/uL ABG pO2 (83-108) mmHg ABG HCO3 (21-25) mmol/L ABG Total CO2 (19-24) mmol/L ABG O2 Saturation (94-97) % Chloride (98-107) mmol/L Glucose (74-99) mg/dL POC Glucose (mg/dL) 124 H 117 H (75-99) mg/dL Calcium (8.4-10.2) mg/dL AST (14-36) U/L Alkaline Phosphatase (38-126) U/L Total Protein (6.3-8.2) g/dL Albumin (3.5-5.0) g/dL Crossmatch 12/22/21 12/22/21 12/22/21 Range/Units 19:50 21:33 22:29 WBC (3.8-10.6) k/uL RBC (3.80-5.40) m/uL Hgb (11.4-16.0) gm/dL Hct (34.0-46.0) % RDW (11.5-15.5) % Plt Count (150-450) k/uL Neutrophils # (1.3-7.7) k/uL ABG pO2 (83-108) mmHg ABG HCO3 (21-25) mmol/L ABG Total CO2 (19-24) mmol/L ABG O2 Saturation (94-97) % Chloride (98-107) mmol/L Glucose (74-99) mg/dL POC Glucose (mg/dL) 112 H 140 H 143 H (75-99) mg/dL Calcium (8.4-10.2) mg/dL AST (14-36) U/L Alkaline Phosphatase (38-126) U/L Total Protein (6.3-8.2) g/dL Albumin (3.5-5.0) g/dL Crossmatch 12/23/21 12/23/21 12/23/21 Range/Units 00:23 02:19 03:51 WBC 11.0 H (3.8-10.6) k/uL RBC 2.99 L (3.80-5.40) m/uL Hgb 8.2 L (11.4-16.0) gm/dL Hct 26.4 L (34.0-46.0) % RDW 15.8 H (11.5-15.5) % Plt Count 75 L (150-450) k/uL Neutrophils # 8.4 H (1.3-7.7) k/uL ABG pO2 (83-108) mmHg ABG HCO3 (21-25) mmol/L ABG Total CO2 (19-24) mmol/L ABG O2 Saturation (94-97) % Chloride (98-107) mmol/L Glucose (74-99) mg/dL POC Glucose (mg/dL) 123 H 122 H (75-99) mg/dL Calcium (8.4-10.2) mg/dL AST (14-36) U/L Alkaline Phosphatase (38-126) U/L Total Protein (6.3-8.2) g/dL Albumin (3.5-5.0) g/dL Crossmatch 12/23/21 12/23/21 12/23/21 Range/Units 03:51 04:23 06:13 WBC (3.8-10.6) k/uL RBC (3.80-5.40) m/uL Hgb (11.4-16.0) gm/dL Hct (34.0-46.0) % RDW (11.5-15.5) % Plt Count (150-450) k/uL Neutrophils # (1.3-7.7) k/uL ABG pO2 (83-108) mmHg ABG HCO3 (21-25) mmol/L ABG Total CO2 (19-24) mmol/L ABG O2 Saturation (94-97) % Chloride 109 H (98-107) mmol/L Glucose 107 H (74-99) mg/dL POC Glucose (mg/dL) 122 H 144 H (75-99) mg/dL Calcium 8.0 L (8.4-10.2) mg/dL AST 64 H (14-36) U/L Alkaline Phosphatase 22 L (38-126) U/L Total Protein 4.6 L (6.3-8.2) g/dL Albumin 2.7 L (3.5-5.0) g/dL Crossmatch 12/23/21 Range/Units 08:09 WBC (3.8-10.6) k/uL RBC (3.80-5.40) m/uL Hgb (11.4-16.0) gm/dL Hct (34.0-46.0) % RDW (11.5-15.5) % Plt Count (150-450) k/uL Neutrophils # (1.3-7.7) k/uL ABG pO2 (83-108) mmHg ABG HCO3 (21-25) mmol/L ABG Total CO2 (19-24) mmol/L ABG O2 Saturation (94-97) % Chloride (98-107) mmol/L Glucose (74-99) mg/dL POC Glucose (mg/dL) 145 H (75-99) mg/dL Calcium (8.4-10.2) mg/dL AST (14-36) U/L Alkaline Phosphatase (38-126) U/L Total Protein (6.3-8.2) g/dL Albumin (3.5-5.0) g/dL Crossmatch - Imaging and Cardiology Chest x-ray: report reviewed, image reviewed Assessment and Plan Assessment: 1. Coronary artery disease with left main disease, status post three-vessel CABG 2. History of hypertension, currently hypotensive on levo 3. Current tobacco dependence 4. Mild COPD, preoperative FEV1 was 73% of predicted 5. Daily EtOH use (1 pint per day of liquor) 6. Occasional marijuana and cocaine use (UDS was positive for cocaine on admission) 7. Hepatitis C 8. CVA 20 years ago 9. Solitary kidney. 10. Postoperative acute blood loss anemia and thrombocytopenia, expected Plan: 1. Continue aspirin, statin, Plavix, beta briana therapy. Will stop Primacor 2. Wean O2 as tolerated. Encourage incentive spirometry use 10 times every hour while awake. Bronchodilators per pulmonology 3. Will increase activity, ambulate as tolerated. PT/OT/cardiac rehab consulted 4. Will monitor daily labs and x-rays. Electrolyte replacement per protocol. No further transfusion today 5. GI/DVT prophylaxis 6. Pain control current medication regimen 7. CIWA protocol 8. Insulin management per primary care services. Patient is not diabetic, preoperative hemoglobin A1c 5.4% 9. Patient counseled preoperatively and will continue to be counseled throughout her stay that she should refrain from smoking, drinking, using illicit drugs 10. Will discontinue mediastinal chest tube. Continue pleural chest tubes for another 24 hours 11. Continue Young catheter for another 24 hours for strict accurate intake and output. Daily weights 12. More recommendations to follow
[2021-12-23 09:04] LABS: Glucose,Whole Blood 108 mg/dL (75-99)
[2021-12-23 10:13] LABS: Glucose,Whole Blood 134 mg/dL (75-99)
--- NOTE | 2021-12-23 10:30 | P.PN ---
Subjective Progress Note Date: 12/23/21 Principal diagnosis: Coronary artery disease This is a 66-year-old -[place] female patient of Dr. Allan with past medical history of hypertension, hyperlipidemia, CVA, single kidney with right nephrectomy, history of hepatitis C, COPD, current tobacco dependence, depres steve, daily EtOH use, occasional marijuana and cocaine use. Patient had recently been complaining of chest pain and shortness of breath for 2 months, she was seen by cardiology, she follows with Dr. Hutchison, she underwent stress testing which was abnormal and subsequently she had a heart catheterization that demonstrated 85% left main disease, totally occluded RCA with collateral from the left side, proximal LAD stenosis of 95%, mid LAD stenosis of a 50% with distal LAD stenosis of 70%, and circumflex with mild disease of 30-40%. Due to these findings patient was referred to cardiothoracic surgery for surgical revascularization. Transthoracic echocardiogram from 12/09/2021 showed preserv ed LV function with ejection fraction of 55-60%, mildly increased septal wall thickness and posterior wall thickness. There was mild mitral regurg, aortic valve was structurally normal without significant sclerosis or stenosis or aortic regurgitation, pulmonary artery systolic pressure was normal, there was trace tricuspid regurg. Bedside PFT showed FEV1 of 1.68 L or 73% of predicted, FVC of 2.04, or 68% of predicted, and FEV1 to FEC ratio of 107%, MCV of 63, and this was consistent with mild restrictive pulmonary physiology. Today on 12/21/2021 patient presented to the hospital, and underwent three-vessel coronary artery bypass surgery with DE LA CRUZ to the LAD, SVG to the OM, SVG to the PDA,, left atrial appendage exclusion with 35 mm Atriclip, intraoperative CHAD, and appendectomy aortic scanning. Patient has known history of substance abuse, and her urine drug screen the day of surgery on 12/21/2021 was positive for benzodiazepines and cocaine. We seen the patient in the postoperative period in the ICU, patient is still sedated and intubated, on assist-control mode with a rate of 12, tidal lamberts 400, FiO2 of 100% and PEEP of 5, postoperative blood gas shows pO2 156, pCO2 51, and pH of 7.30 and this was done on the above- mentioned ventilator settings and FiO2 had since been dropped down to 80%. Chest x-ray showing ET tube 2 cm above the henrry, right internal jugular [place]- Pamela in place, bilateral pleural and mediastinal chest tubes in place. No pneumothorax. Patient is in sinus mechanism with a rate of 71, blood pressure is 148/63, PA pressures 33/16, CVP 7-8, cardiac output is 3.6, and cardiac index is 2.0. With SVR of 1400. Currently patient is on lactated Ringer's at 50 ML per hour, insulin is at 0.5 units per hour, nitroglycerin is up 5 mics per kilo per minute, and milrinone is at 0.3 mics per kilo per minute. Right and left pleural chest tubes connected together, and mediastinal chest tube with minimal sanguinous output. No air leak noted. Young catheter is in place, patient is producing 50-65 ML per hour. On 12/22/2021 patient seen in follow-up in intensive care unit, she is waking up, she remains intubated on mechanical ventilator, on assist-control with a rate of 12, tidal volume was 400, FiO2 of 60% and PEEP of 5. This point his blood gas showed pO2 of 68, pCO2 of 43, and pH of 7.39, and this was done on those above-mentioned ventilator settings, patient has since been placed on pressure support of 5 and CPAP of 5 with FiO2 of 50%. She is doing good, she is opening eyes to voice, follows simple commands, appears to be in no acute distress, hemodynamically she is been stable, she is in sinus mechanism with a rate of 90 BPM, she remains on small amount of milrinone at 0.1 cameron per kilo per minute, she is on lactated Ringer's at 50 ML per hour, norepinephrine at 0.08 units per kilo per minute, Cleviprex and nitroglycerin infusions have been discontinued. Today's chest x-ray has been reviewed showing scattered bibasilar infiltrates likely related to atelectasis. PA pressure is 36/17, CVP is 9, cardiac output is 4.8, and cardiac index is 2.7. This morning's labs have been reviewed showing globin of 5.9, white blood cell count of 6.4, platelet count of 99, sodium is 138, potassium is 4.2, chloride is 108, BUN is 15, creatinine is 1.05. Patient was transfused with 1 unit of packed red blood cells, repeat labs from this morning show hemoglobin if 6.6, and patient will receive another unit of packed red blood cells. Patient has a mediastinal chest tube in place and 1 left pleural and one right pleural white connected together, and pleural chest tubes put out 650 mL of serosanguineous output in the last 24 hours, and there is been 300 mL of serous and was output from the mediastinal chest tube. Remains on cefazolin for prophylactic antibiotic coverage. Patient has been started on aspirin, Lipitor, Plavix, she is on subcu heparin, metoprolol 12.5 mg twice daily, Protonix for GI prophylaxis. She is on Ativan per CIWA protocol, and thiamine replacements. Patient's weaning parameters and blood gas following spontaneous breathing trials were satisfactory, and spontaneous tidal volumes were 375, respiratory rate was 20, minute ventilation was 7.35 L/m, R SBI was 60, and this was -25, and we were unable to obtain vital. Blood gas was satisfactory with pO2 of 112, pCO2 44, and pH of 7.38 on pressure-support of 5 and CPAP of 5 and FiO2 of 50%. Patient looks comfortable, and she had a positive cuff week as well. She was extubated and tolerating extubation well. Midsternal incision is clean dry and intact, chest tube sites are clean dry and intact, left leg and the right leg Tad wrap. On 12/23/2021 patient seen in follow-up in intensive care unit, today is postoperative day #2, status post three-vessel coronary artery bypass grafting. She was successfully weaned and extubated yesterday on 12/22/2021, however in the evening she developed respiratory difficulty, hypoxia and required to go on BiPAP support with pressures of 12 and 5 and FiO2 of 100%, which was then weaned down to 50%. Her chest x-ray at 1720 last night showed bilateral chest tubes without evidence of pneumothorax, layering bilateral pleural effusions with associated subsegmental atelectasis, and coronary vascular congestion with cardiomegaly. Patient received one-time dose of IV Lasix she has produced 2.9 L in the urine output over the last 24 hours, however still remains in positive fluid balance of 769 mL over last 24 hours, her right and left pleural chest tubes have been by CT surgery last night, and right-sided pleural chest tube has put out 400 mL of bright red blood overnight, left pleural chest tube only put out 25 mL, and mediastinal chest tube 150 the last 24 hours. Patient received 3 units of packed red blood cells yesterday, his labs have been reviewed, hemoglobin is 8.2, white count is 11.1, platelet count is 75. Sodium is 138, potassium 3.8, chloride is 109, BUN is 13, creatinine 0.84. Hemodynamically patient is improved, her norepinephrine drip has been off since yesterday afternoon, milrinone drip has been discontinued this morning, she remains on Vicodin Ringer's at 50 ML per hour, and insulin at 2 units per hour, she is currently awake and alert, she is on 15 L per high flow nasal cannula, sitting up in a recliner, her incentive spirometer effort is suboptimal, patient is achieving about 500 to sometimes 700 mL on the incentive spirometer, lung sounds are diminished, poor inspiratory effort, there are scattered diffuse crackles throughout. Today's chest x-ray shows continued bilateral patchy opacities throughout both but improving aeration in the lower lungs, bilateral pleural chest tubes in place, no appreciable pneumothorax. PA pressure is 35/13, CVP is 7, cardiac output is 5.4, cardiac index 3.1. Patient states her pain is tolerable, she rates it 7 out of 10, and it is in the anterior sternum incisional area. Patient is tolerating sips of clear liquids. Diet has been ordered for her this morning. Objective - Vital Signs Vital signs: Vital Signs Temp 99.7 F H 12/23/21 04:00 Pulse 101 H 12/23/21 09:00 Resp 29 H 12/23/21 09:00 BP 107/61 12/23/21 07:00 Pulse Ox 96 12/23/21 09:00 FiO2 50 12/23/21 08:04 Intake & Output 12/22/21 12/23/21 12/23/21 18:59 06:59 18:59 Intake Total 2696.674 1012.663 393.791 Output Total 1255 1685 165 Balance 1441.674 -672.337 228.791 Weight 76.5 kg Intake: IV 759 928 138 CARDIAC OUTPUT (0.9 60 220 20 Sodium Chloride) Lactated Ringers 550 600 100 Pressure Bag (0.9 Sodium 99 108 18 Chloride) ceFAZolin 2 gm In Sodium 50 Chloride 0.9% 50 ml @ 100 mls/hr IVPB Q8HR YADY Rx# :[id number] Intake, IV Titration 137.674 84.663 5.791 Amount Clevidipine Butyrate 25 5.3 32.6 mg In Empty Bag 1 bag @ 1 MG/HR 2 mls/hr IV .Q24H YADY Rx#:[id number] Insulin Regular 100 unit 22.432 13.702 5.791 In Sodium Chloride 0.9% 100 ml @ Per Protocol IV .Q0M YADY Rx#:[id number] Norepinephrine 4 mg In 109.942 38.361 Sodium Chloride 0.9% 250 ml @ 0.05 MCG/KG/MIN 13. 506 mls/hr IV .[id number] YADY Rx#:[id number] Oral 250 250 Blood Product 1550 Rc As-1 Unit 310 [id number] Rc As-1 Unit 310 [id number] Rc As-1 Unit 310 [id number] Output: Chest Tube Drainage 560 630 120 Chest Tube Bilateral 450 Lateral Chest Chest Tube Left 150 10 Chest Tube Mediastinal 110 70 20 Chest Tube Right 410 90 Urine 695 1055 45 Other: Voiding Method Indwelling Catheter Indwelling Catheter Indwelling Catheter ABP, PAP, CO, CI - Last Documented Arterial Blood Pressure 139/58 Pulmonary Artery Pressure 33/13 Cardiac Output 5.4 Cardiac Index 3.1 - Exam GENERAL EXAM: Aweake, but arousable to voice, and following simple commands intubated, 66-year-old -[place] female patient 15 L high flow nasal cannula comfortable in no apparent distress. HEAD: Normocephalic/atraumatic. EYES: Normal reaction of pupils, equal size. Conjunctiva pink, sclera white. NOSE: Clear with pink turbinates. THROAT: No erythema or exudates. NECK: No masses, no JVD, no thyroid enlargement, no adenopathy. CHEST: No chest wall deformity. Symmetrical expansion. Midsternal incision is clean dry and intact, right and left pleural chest tubes in place, and there is 400 mL of bright sanguinous output from the right chest tube, and dark serosanguineous output from the left chest tube, mediastinal chest tube with 150 cc of serosanguinous output, no air leak, AV wires in place connected to temporary pacemaker with backup rate LUNGS: Equal air entry with no crackles, wheeze, rhonchi or dullness. CVS: Regular rate and rhythm, normal S1 and S2, no gallops, no murmurs, no rubs ABDOMEN: Soft, nontender. No hepatosplenomegaly, normal bowel sounds, no guarding or rigidity. EXTREMITIES: No clubbing, no edema, no cyanosis, 2+ pulses and upper and lower extremities. MUSCULOSKELETAL: Muscle strength and tone normal. SPINE: No scoliosis or deformity SKIN: No rashes, left leg interrupted incision covered with Tad wrap - Labs CBC & Chem 7: 12/23/21 03:51 12/23/21 03:51 Labs: Abnormal Lab Results - Last 24 Hours (Table) 12/22/21 12/22/21 12/22/21 Range/Units 05:25 11:09 12:03 WBC (3.8-10.6) k/uL RBC (3.80-5.40) m/uL Hgb (11.4-16.0) gm/dL Hct (34.0-46.0) % RDW (11.5-15.5) % Plt Count (150-450) k/uL Neutrophils # (1.3-7.7) k/uL Chloride (98-107) mmol/L Glucose (74-99) mg/dL POC Glucose (mg/dL) 107 H 124 H (75-99) mg/dL Calcium (8.4-10.2) mg/dL AST (14-36) U/L Alkaline Phosphatase (38-126) U/L Total Protein (6.3-8.2) g/dL Albumin (3.5-5.0) g/dL Crossmatch See Detail 12/22/21 12/22/21 12/22/21 Range/Units 14:19 15:09 15:58 WBC (3.8-10.6) k/uL RBC (3.80-5.40) m/uL Hgb (11.4-16.0) gm/dL Hct (34.0-46.0) % RDW (11.5-15.5) % Plt Count (150-450) k/uL Neutrophils # (1.3-7.7) k/uL Chloride (98-107) mmol/L Glucose (74-99) mg/dL POC Glucose (mg/dL) 131 H 142 H 127 H (75-99) mg/dL Calcium (8.4-10.2) mg/dL AST (14-36) U/L Alkaline Phosphatase (38-126) U/L Total Protein (6.3-8.2) g/dL Albumin (3.5-5.0) g/dL Crossmatch 12/22/21 12/22/21 12/22/21 Range/Units 18:17 18:21 19:07 WBC (3.8-10.6) k/uL RBC 3.09 L (3.80-5.40) m/uL Hgb 8.9 L D (11.4-16.0) gm/dL Hct 27.4 L (34.0-46.0) % RDW 15.8 H (11.5-15.5) % Plt Count 74 L (150-450) k/uL Neutrophils # (1.3-7.7) k/uL Chloride (98-107) mmol/L Glucose (74-99) mg/dL POC Glucose (mg/dL) 124 H 117 H (75-99) mg/dL Calcium (8.4-10.2) mg/dL AST (14-36) U/L Alkaline Phosphatase (38-126) U/L Total Protein (6.3-8.2) g/dL Albumin (3.5-5.0) g/dL Crossmatch 12/22/21 12/22/21 12/22/21 Range/Units 19:50 21:33 22:29 WBC (3.8-10.6) k/uL RBC (3.80-5.40) m/uL Hgb (11.4-16.0) gm/dL Hct (34.0-46.0) % RDW (11.5-15.5) % Plt Count (150-450) k/uL Neutrophils # (1.3-7.7) k/uL Chloride (98-107) mmol/L Glucose (74-99) mg/dL POC Glucose (mg/dL) 112 H 140 H 143 H (75-99) mg/dL Calcium (8.4-10.2) mg/dL AST (14-36) U/L Alkaline Phosphatase (38-126) U/L Total Protein (6.3-8.2) g/dL Albumin (3.5-5.0) g/dL Crossmatch 12/23/21 12/23/21 12/23/21 Range/Units 00:23 02:19 03:51 WBC 11.0 H (3.8-10.6) k/uL RBC 2.99 L (3.80-5.40) m/uL Hgb 8.2 L (11.4-16.0) gm/dL Hct 26.4 L (34.0-46.0) % RDW 15.8 H (11.5-15.5) % Plt Count 75 L (150-450) k/uL Neutrophils # 8.4 H (1.3-7.7) k/uL Chloride (98-107) mmol/L Glucose (74-99) mg/dL POC Glucose (mg/dL) 123 H 122 H (75-99) mg/dL Calcium (8.4-10.2) mg/dL AST (14-36) U/L Alkaline Phosphatase (38-126) U/L Total Protein (6.3-8.2) g/dL Albumin (3.5-5.0) g/dL Crossmatch 12/23/21 12/23/21 12/23/21 Range/Units 03:51 04:23 06:13 WBC (3.8-10.6) k/uL RBC (3.80-5.40) m/uL Hgb (11.4-16.0) gm/dL Hct (34.0-46.0) % RDW (11.5-15.5) % Plt Count (150-450) k/uL Neutrophils # (1.3-7.7) k/uL Chloride 109 H (98-107) mmol/L Glucose 107 H (74-99) mg/dL POC Glucose (mg/dL) 122 H 144 H (75-99) mg/dL Calcium 8.0 L (8.4-10.2) mg/dL AST 64 H (14-36) U/L Alkaline Phosphatase 22 L (38-126) U/L Total Protein 4.6 L (6.3-8.2) g/dL Albumin 2.7 L (3.5-5.0) g/dL Crossmatch 12/23/21 12/23/21 12/23/21 Range/Units 08:09 09:02 10:12 WBC (3.8-10.6) k/uL RBC (3.80-5.40) m/uL Hgb (11.4-16.0) gm/dL Hct (34.0-46.0) % RDW (11.5-15.5) % Plt Count (150-450) k/uL Neutrophils # (1.3-7.7) k/uL Chloride (98-107) mmol/L Glucose (74-99) mg/dL POC Glucose (mg/dL) 145 H 108 H 134 H (75-99) mg/dL Calcium (8.4-10.2) mg/dL AST (14-36) U/L Alkaline Phosphatase (38-126) U/L Total Protein (6.3-8.2) g/dL Albumin (3.5-5.0) g/dL Crossmatch Assessment and Plan Plan: Assessment: #1. Symptomatic multivessel coronary artery disease, status post three-vessel coronary artery bypass grafting with DE LA CRUZ to LAD, SVG to the OM, SVG to the PDA, left atrial appendage exclusion with 35 mm Atriclip on 12/21/2021 #2. Routine postoperative ventilator management, patient was successfully weaned and extubated on postoperative day #1, on 12/22/2021 #3. Acute blood loss anemia, an expected outcome of sternotomy, and bypass surgery, requiring transfusion with blood products, patient has received 2 units of packed red blood cells for hemoglobin of 5.9 #4. History of substance abuse including cocaine, EtOH, and marijuana. Urine drug screen on the day of surgery on 12/21/2021 is positive for cocaine and benzodiazepines #5. History of single kidney, with history of nephrectomy #6. Chronic and ongoing tobacco dependence #7. History of CVA #8. Hypertension #9. Hyperlipidemia #10. History of COPD #11. Depression #12. History of hepatitis C Plan: Continue weaning FiO2 Patient was placed on BiPAP support yesterday in the evening for worsening hypoxia and shortness of breath Doing much better today Encouraged her breathing and coughing Would benefit from a dose of IV Lasix 40 mg 1 Continue breathing treatments Provide pain control Monitor for signs of alcohol withdrawal So far no confusion or agitation GI and DVT prophylaxis Continue close monitoring in the ICU Encourage ambulation I have personally seen and examined the patient, performed the documentation and the assessment and plan as written. Number of minutes spent on the visit: [15] Time with Patient: Greater than 30
[2021-12-23 12:20] LABS: Glucose,Whole Blood 159 mg/dL (75-99)
[2021-12-23 13:12] LABS: Glucose,Whole Blood 219 mg/dL (75-99)
[2021-12-23 14:19] LABS: Glucose,Whole Blood 133 mg/dL (75-99)
--- NOTE | 2021-12-23 14:32 | PN ---
PROGRESS NOTE Mrs. Chinchilla is status post bypass surgery. She is feeling much better; quite alert. No chest pain or shortness of breath. Progressing well, doing much better on incentive spirometry. She is only on a small dose of Primacor, which is being weaned off. Vitals are stable. Sinus rhythm. S1, S2 heard normally. Short systolic murmur audible. Lungs reveal improved air entry. Abdomen and lower extremity exam unchanged. Plan is to continue current medications, increase activity, incentive spirometry, and probably move her out to telemetry tomorrow. MMODL / IJN: [id number] /
[2021-12-23 15:21] LABS: Glucose,Whole Blood 101 mg/dL (75-99)
[2021-12-23] MEDS: CLEVIDIPINE BUTYRATE 25 MG in EMPTY BAG 1 BAG IV SCH (15:23)
[2021-12-23] MEDS ORDERED: METOPROLOL TARTRATE 12.5 MG TAB PO STA (15:24)
[2021-12-23] MEDS: LORazepam 0.5 MG TAB PO PRN ×2 (15:37→22:42)
[2021-12-23 16:17] LABS: Glucose,Whole Blood 132 mg/dL (75-99)
[2021-12-23 17:21] LABS: Glucose,Whole Blood 142 mg/dL (75-99)
[2021-12-23 18:51] LABS: Glucose,Whole Blood 127 mg/dL (75-99)
[2021-12-23 19:56] LABS: Glucose,Whole Blood 128 mg/dL (75-99)
[2021-12-23] MEDS: METOPROLOL TARTRATE 25 MG TAB PO SCH (20:10)
[2021-12-23] MEDS: SENNOSIDES-DOCUSATE SODIUM 1 EACH TAB PO SCH (20:10)
[2021-12-23 22:10] LABS: Glucose,Whole Blood 140 mg/dL (75-99)
[2021-12-24] LABS: Glucose,Whole Blood 132 mg/dL (75-99)
[2021-12-24 02:17] LABS: Glucose,Whole Blood 129 mg/dL (75-99)
[2021-12-24] MEDS: HYDROcodone/APAP 5-325MG 1 EACH TAB PO PRN ×5 (04:34→23:31)
[2021-12-24 04:36] LABS: Glucose,Whole Blood 143 mg/dL (75-99)
[2021-12-24 05:11] LABS: Basophils % (A) 0 %; Eosinophils # (A) 0.1 k/uL (0-0.7); Eosinophils % (A) 1 %; HCT 26.1 % (34.0-46.0); HGB 8.1 gm/dL (11.4-16.0); Hypochromasia Slight; Lymphocytes # (A) 1.1 k/uL (1.0-4.8); Lymphocytes % (A) 11 %; MCH 27.6 pg (25.0-35.0); MCV 88.9 fL (80.0-100.0); Mean Platelet Volume 10.4; Monocytes # (A) 0.7 k/uL (0-1.0); Monocytes % (A) 7 %; Neutrophils # (A) 8.5 k/uL (1.3-7.7); Neutrophils % (A) 80 %; RBC 2.94 m/uL (3.80-5.40); RDW 15.8 % (11.5-15.5); WBC 10.6 k/uL (3.8-10.6)
[2021-12-24 05:20] LABS: Platelet Count 81 k/uL (150-450)
[2021-12-24 05:35] LABS: ALT 13 U/L (4-34); AST 56 U/L (14-36); African American GFR (CKD) >90 (>60 ml/min/1.73 sqM); Albumin 2.9 g/dL (3.5-5.0); Alkaline Phosphatase 28 U/L (38-126); Anion Gap 0 mmol/L; Blood Urea Nitrogen 12 mg/dL (7-17); Calcium 8.5 mg/dL (8.4-10.2); Carbon Dioxide 28 mmol/L (22-30); Chloride 105 mmol/L (98-107); Glucose 127 mg/dL (74-99); Magnesium 1.7 mg/dL (1.6-2.3); Non-African American GFR(CKD) >90 (>60 ml/min/1.73 sqM); Potassium 4.2 mmol/L (3.5-5.1); Sodium 133 mmol/L (137-145); Total Bilirubin 0.7 mg/dL (0.2-1.3); Total Protein 5.1 g/dL (6.3-8.2)
--- NOTE | 2021-12-24 06:09 | XR ---
EXAMINATION TYPE: XR chest 1V portable DATE OF EXAM: 12/24/2021 CLINICAL HISTORY: Difficulty breathing progress study. Postoperative cardiac surgery. TECHNIQUE: Single AP portable upright view of the chest is obtained. COMPARISON: Chest x-ray from one day earlier and the older studies. FINDINGS: Interval removal of right internal jugular [place]-Pamela catheter. Cordis sheath remains in pl parker at this level. Persistent bilateral chest tubes. Overlying sternal wires and mediastinal clips al nomi with left atrial appendage clip are all redemonstrated. Persistent increased markings bilaterally on current study. No pneumothorax clearly seen. Cardiac orin houette size stable and mildly enlarged. Surgical clips in the central mid abdomen are redemonstrated . Osseous structures are intact. IMPRESSION: No pneumothorax with bilateral chest tubes in place. Persistent mild cardiomegaly with bi lateral multifocal edema and/or infiltrates. No significant change from one day earlier.
[2021-12-24 06:20] LABS: Glucose,Whole Blood 129 mg/dL (75-99)
[2021-12-24] MEDS: MAGNESIUM SULFATE-D5W PMX 1 GM in DEXTROSE/WATER 1 100ML.BAG IVPB SCH ×2 (06:35→08:42)
[2021-12-24] MEDS: THIAMINE 100 MG TAB PO SCH ×2 (06:35→18:27)
[2021-12-24] MEDS: PANTOPRAZOLE 40 MG TABLET PO SCH (06:35)
[2021-12-24] MEDS: SODIUM CHLORIDE 0.9% 1,000 ML IV SCH (06:42)
[2021-12-24 08:08] LABS: Glucose,Whole Blood 149 mg/dL (75-99)
[2021-12-24] MEDS ORDERED: FUROSEMIDE 10 MG/ML 4 ML VIAL IV STA (08:17)
[2021-12-24] MEDS: IPRATROPIUM-ALBUTEROL 3 ML NEB INHALATION SCH ×5 (08:25→20:33)
[2021-12-24] MEDS: HEPARIN SODIUM,PORCINE/PF 5,000 UNIT/0.5 ML SYRINGE SQ SCH (08:43)
[2021-12-24] MEDS: METOPROLOL TARTRATE 25 MG TAB PO SCH (08:43)
[2021-12-24] MEDS: FLUoxetine HCL 20 MG CAP PO SCH (08:43)
[2021-12-24] MEDS: ASPIRIN 325 MG TAB PO SCH (08:43)
[2021-12-24] MEDS: ATORVASTATIN 40 MG TAB PO SCH (08:43)
[2021-12-24] MEDS: CLOPIDOGREL 75 MG TAB PO SCH (08:43)
[2021-12-24] MEDS: MULTIVITAMINS, THERA 1 EACH TAB PO SCH (08:43)
[2021-12-24] MEDS: amLODIPine 5 MG TAB PO SCH (09:41)
[2021-12-24 10:20] LABS: Glucose,Whole Blood 130 mg/dL (75-99)
[2021-12-24] MEDS ORDERED: POTASSIUM CHLORIDE ER 20 MEQ TAB.ER PO STA (11:01)
--- NOTE | 2021-12-24 11:18 | P.PN ---
Subjective Progress Note Date: 12/24/21 This is a 66-year-old -[place] female patient of Dr. Allan with past medical history of hypertension, hyperlipidemia, CVA, single kidney with right nephrectomy, history of hepatitis C, COPD, current tobacco dependence, depression, daily EtOH use, occasional marijuana and cocaine use. Patient had recently been complaining of chest pain and shortness of breath for 2 months, she was seen by cardiology, she follows with Dr. Hutchison, she underwent stress testing which was abnormal and subsequently she had a heart catheterization that demonstrated 85% left main disease, totally occluded RCA with collateral from the left side, proximal LAD stenosis of 95%, mid LAD stenosis of a 50% with distal LAD stenosis of 70%, and circumflex with mild disease of 30-40%. Due to these findings patient was referred to cardiothoracic surgery for surgical revascularization. Transthoracic echocardiogram from 12/09/2021 showed preserved LV function with ejection fraction of 55-60%, mildly increased septal wall thickness and posterior wall thickness. There was mild mitral regurg, aortic valve was structurally normal without significant sclerosis or stenosis or aortic regurgitation, pulmonary artery systolic pressure was normal, there was trace tricuspid regurg. Bedside PFT showed FEV1 of 1.68 L or 73% of predicted, FVC of 2.04, or 68% of predicted, and FEV1 to FEC ratio of 107%, MCV of 63, and this was consistent with mild restrictive pulmonary physiology. Today on 12/21/2021 patient presented to the hospital, and underwent three- vessel coronary artery bypass surgery with DE LA CRUZ to the LAD, SVG to the OM, SVG to the PDA,, left atrial appendage exclusion with 35 mm Atriclip, intraoperative CHAD, and appendectomy aortic scanning. Patient has known history of substance abuse, and her urine drug screen the day of surgery on 12/21/2021 was positive for benzodiazepines and cocaine. We seen the patient in the postoperative period in the ICU, patient is still sedated and intubated, on assist-control mode with a rate of 12, tidal lamberts 400, FiO2 of 100% and PEEP of 5, postoperative blood gas shows pO2 156, pCO2 51, and pH of 7.30 and this was done on the above-mentioned ventilator settings and FiO2 had since been dropped down to 80%. Chest x-ray showing ET tube 2 cm above the henrry, right internal jugular [place] in place, bilateral pleural and mediastinal chest tubes in place. No pneumothorax. Patient is in sinus mechanism with a rate of 71, blood pressure is 148/63, PA pressures 33/16, CVP 7-8, cardiac output is 3.6, and cardiac index is 2.0. With SVR of 1400. Currently patient is on lactated Ringer's at 50 ML per hour, insulin is at 0.5 units per hour, nitroglycerin is up 5 mics per kilo per minute, and milrinone is at 0.3 mics per kilo per minute. Right and left pleural chest tubes connected together, and mediastinal chest tube with minimal sanguinous output. No air leak noted. Young catheter is in place, patient is producing 50-65 ML per hour. On 12/22/2021 patient seen in follow-up in intensive care unit, she is waking up, she remains intubated on mechanical ventilator, on assist-control with a rate of 12, tidal volume was 400, FiO2 of 60% and PEEP of 5. This point his blood gas showed pO2 of 68, pCO2 of 43, and pH of 7.39, and this was done on those above-mentioned ventilator settings, patient has since been placed on pressure support of 5 and CPAP of 5 with FiO2 of 50%. She is doing good, she is opening eyes to voice, follows simple commands, appears to be in no acute distress, hemodynamically she is been stable, she is in sinus mechanism with a rate of 90 BPM, she remains on small amount of milrinone at 0.1 cameron per kilo per minute, she is on lactated Ringer's at 50 ML per hour, norepinephrine at 0.08 units per kilo per minute, Cleviprex and nitroglycerin infusions have been discontinued. Today's chest x-ray has been reviewed showing scattered bibasilar infiltrates likely related to atelectasis. PA pressure is 36/17, CVP is 9, cardiac output is 4.8, and cardiac index is 2.7. This morning's labs have been reviewed showing globin of 5.9, white blood cell count of 6.4, platelet count of 99, sodium is 138, potassium is 4.2, chloride is 108, BUN is 15, creatinine is 1.05. Patient was transfused with 1 unit of packed red blood cells, repeat labs from this morning show hemoglobin if 6.6, and patient will receive another unit of packed red blood cells. Patient has a mediastinal chest tube in place and 1 left pleural and one right pleural white connected together, and pleural chest tubes put out 650 mL of serosanguineous output in the last 24 hours, and there is been 300 mL of serous and was output from the mediastinal chest tube. Remains on cefazolin for prophylactic antibiotic coverage. Patient has been started on aspirin, Lipitor, Plavix, she is on subcu heparin, metoprolol 12.5 mg twice daily, Protonix for GI prophylaxis. She is on Ativan per CIWA protocol, and thiamine replacements. Patient's weaning parameters and blood gas following spontaneous breathing trials were satisfactory, and spontaneous tidal volumes were 375, respiratory rate was 20, minute ventilation was 7.35 L/m, R SBI was 60, and this was -25, and we were unable to obtain vital. Blood gas was satisfactory with pO2 of 112, pCO2 44, and pH of 7.38 on pressure-support of 5 and CPAP of 5 and FiO2 of 50%. Patient looks comfortable, and she had a positive cuff week as well. She was extubated and tolerating extubation well. Midsternal incision is clean dry and intact, chest tube sites are clean dry and intact, left leg and the right leg Tad wrap. On 12/23/2021 patient seen in follow-up in intensive care unit, today is postoperative day #2, status post three-vessel coronary artery bypass grafting. She was successfully weaned and extubated yesterday on 12/22/2021, however in the evening she developed respiratory difficulty, hypoxia and required to go on BiPAP support with pressures of 12 and 5 and FiO2 of 100%, which was then weaned down to 50%. Her chest x-ray at 1720 last night showed bilateral chest tubes without evidence of pneumothorax, layering bilateral pleural effusions with associated subsegmental atelectasis, and coronary vascular congestion with cardiomegaly. Patient received one-time dose of IV Lasix she has produced 2.9 L in the urine output over the last 24 hours, however still remains in positive fluid balance of 769 mL over last 24 hours, her right and left pleural chest tubes have been by CT surgery last night, and right-sided pleural chest tube has put out 400 mL of bright red blood overnight, left pleural chest tube only put out 25 mL, and mediastinal chest tube 150 the last 24 hours. Patient received 3 units of packed red blood cells yesterday, his labs have been reviewed, hemoglobin is 8.2, white count is 11.1, platelet count is 75. Sodium is 138, potassium 3.8, chloride is 109, BUN is 13, creatinine 0.84. Hemodynamically patient is improved, her norepinephrine drip has been off since yesterday afternoon, milrinone drip has been discontinued this morning, she remains on Vicodin Ringer's at 50 ML per hour, and insulin at 2 units per hour, she is currently awake and alert, she is on 15 L per high flow nasal cannula, sitting up in a recliner, her incentive spirometer effort is suboptimal, patient is achieving about 500 to sometimes 700 mL on the incentive spirometer, lung sounds are diminished, poor inspiratory effort, there are scattered diffuse crackles throughout. Today's chest x-ray shows continued bilateral patchy opacities throughout both but improving aeration in the lower lungs, bilateral pleural chest tubes in place, no appreciable pneumothorax. PA pressure is 35/13, CVP is 7, cardiac output is 5.4, cardiac index 3.1. Patient states her pain is tolerable, she rates it 7 out of 10, and it is in the anterior sternum incisional area. Patient is tolerating sips of clear liquids. Diet has been ordered for her this morning. The patient is seen today 12/24/2021 in follow-up in the intensive care unit. Postoperative day #3 of the three-vessel coronary artery bypass surgery. She is currently sitting up in a chair at the bedside. Awake and alert in no acute distress. Maintaining O2 saturations in the 90s on 6 L high flow nasal cannula. Bilateral end mediastinal chest tubes remain in place. Chest x-ray reveals no evidence of pneumothorax. Persistent mild cardiomegaly with bilateral multifocal edema/infiltrate. No significant change compared to yesterday. She is pulling only about 500 ML's on her incentive spirometer at this morning. She did not utilize BiPAP last night. She remains on lactated Ringer's at 40 miles per hour. Insulin drip at 1 unit per hour. She is status post 3 units of packed red blood cells this admission. White count 10.6. Hemoglobin 8.1. Platelet count 81,000. Sodium 133. Potassium 4.2. BUN 12. Creatinine 0.69. Glucose 127. AST 56. ALT 13. CVP is 7. Cardiac output 4.8. Cardiac index 2.7. Blood pressure stable. Pacer wires in place. Remains in a -500 ML balance. Continued on DuoNeb inhalations. Objective - Vital Signs Vital signs: Vital Signs Temp 98.2 F 12/24/21 08:00 Pulse 89 12/24/21 10:00 Resp 22 12/24/21 10:00 BP 125/76 12/24/21 10:00 Pulse Ox 91 L 12/24/21 10:00 FiO2 80 12/23/21 16:21 Intake & Output 12/23/21 12/24/21 12/24/21 18:59 06:59 18:59 Intake Total 1459.593 559.819 254.934 Output Total 1737 770 660 Balance -277.407 -210.181 -405.066 Weight 76.5 kg 77.4 kg Intake: IV 696 552 154 CARDIAC OUTPUT (0.9 40 Sodium Chloride) Lactated Ringers 560 480 130 Pressure Bag (0.9 Sodium 96 72 24 Chloride) Intake, IV Titration 13.593 7.819 100.934 Amount Insulin Regular 100 unit 13.593 7.819 0.934 In Sodium Chloride 0.9% 100 ml @ Per Protocol IV .Q0M YADY Rx#:[id number] Magnesium Sulfate-D5w Pmx 100 1 gm In Dextrose/Water 1 100ml.bag @ 100 mls/hr IVPB Q1H YADY Rx#: [id number] Oral 750 Output: Chest Tube Drainage 452 330 70 Chest Tube Left 112 180 40 Chest Tube Mediastinal 40 Chest Tube Right 300 150 30 Urine 1285 440 590 Other: Voiding Method Indwelling Catheter Indwelling Catheter ABP, PAP, CO, CI - Last Documented Arterial Blood Pressure 130/60 Pulmonary Artery Pressure 34/8 Cardiac Output 4.8 Cardiac Index 2.7 - Exam GENERAL EXAM: Awake, alert, up in a chair at the bedside, 66-year-old female patient on 6L high flow nasal cannula, comfortable in no apparent distress. HEAD: Normocephalic/atraumatic. EYES: Normal reaction of pupils, equal size. Conjunctiva pink, sclera white. NOSE: Clear with pink turbinates. THROAT: No erythema or exudates. NECK: No masses, no JVD, no thyroid enlargement, no adenopathy. CHEST: Heart hugger in place Symmetrical expansion. Midsternal incision is clean dry and intact, mediastinal, right and left pleural chest tubes in place, no air leak, AV wires in place connected to temporary pacemaker with backup rate LUNGS: Equal air entry with no crackles, wheeze, rhonchi or dullness. CVS: Regular rate and rhythm, normal S1 and S2, no gallops, no murmurs, no rubs ABDOMEN: Soft, nontender. No hepatosplenomegaly, normal bowel sounds, no guarding or rigidity. EXTREMITIES: No clubbing, no edema, no cyanosis, 2+ pulses and upper and lower extremities. MUSCULOSKELETAL: Muscle strength and tone normal. SPINE: No scoliosis or deformity SKIN: No rashes, left leg interrupted incision covered with Tad wrap - Labs CBC & Chem 7: 12/24/21 04:35 12/24/21 04:35 Labs: Abnormal Lab Results - Last 24 Hours (Table) 12/23/21 12/23/21 12/23/21 Range/Units 12:18 13:10 14:18 RBC (3.80-5.40) m/uL Hgb (11.4-16.0) gm/dL Hct (34.0-46.0) % RDW (11.5-15.5) % Plt Count (150-450) k/uL Neutrophils # (1.3-7.7) k/uL Sodium (137-145) mmol/L Glucose (74-99) mg/dL POC Glucose (mg/dL) 159 H 219 H 133 H (75-99) mg/dL AST (14-36) U/L Alkaline Phosphatase (38-126) U/L Total Protein (6.3-8.2) g/dL Albumin (3.5-5.0) g/dL 12/23/21 12/23/21 12/23/21 Range/Units 15:18 16:15 17:20 RBC (3.80-5.40) m/uL Hgb (11.4-16.0) gm/dL Hct (34.0-46.0) % RDW (11.5-15.5) % Plt Count (150-450) k/uL Neutrophils # (1.3-7.7) k/uL Sodium (137-145) mmol/L Glucose (74-99) mg/dL POC Glucose (mg/dL) 101 H 132 H 142 H (75-99) mg/dL AST (14-36) U/L Alkaline Phosphatase (38-126) U/L Total Protein (6.3-8.2) g/dL Albumin (3.5-5.0) g/dL 12/23/21 12/23/21 12/23/21 Range/Units 18:49 19:55 22:08 RBC (3.80-5.40) m/uL Hgb (11.4-16.0) gm/dL Hct (34.0-46.0) % RDW (11.5-15.5) % Plt Count (150-450) k/uL Neutrophils # (1.3-7.7) k/uL Sodium (137-145) mmol/L Glucose (74-99) mg/dL POC Glucose (mg/dL) 127 H 128 H 140 H (75-99) mg/dL AST (14-36) U/L Alkaline Phosphatase (38-126) U/L Total Protein (6.3-8.2) g/dL Albumin (3.5-5.0) g/dL 12/23/21 12/24/21 12/24/21 Range/Units 23:58 02:15 04:34 RBC (3.80-5.40) m/uL Hgb (11.4-16.0) gm/dL Hct (34.0-46.0) % RDW (11.5-15.5) % Plt Count (150-450) k/uL Neutrophils # (1.3-7.7) k/uL Sodium (137-145) mmol/L Glucose (74-99) mg/dL POC Glucose (mg/dL) 132 H 129 H 143 H (75-99) mg/dL AST (14-36) U/L Alkaline Phosphatase (38-126) U/L Total Protein (6.3-8.2) g/dL Albumin (3.5-5.0) g/dL 12/24/21 12/24/21 12/24/21 Range/Units 04:35 04:35 06:18 RBC 2.94 L (3.80-5.40) m/uL Hgb 8.1 L (11.4-16.0) gm/dL Hct 26.1 L (34.0-46.0) % RDW 15.8 H (11.5-15.5) % Plt Count 81 L (150-450) k/uL Neutrophils # 8.5 H (1.3-7.7) k/uL Sodium 133 L (137-145) mmol/L Glucose 127 H (74-99) mg/dL POC Glucose (mg/dL) 129 H (75-99) mg/dL AST 56 H (14-36) U/L Alkaline Phosphatase 28 L (38-126) U/L Total Protein 5.1 L (6.3-8.2) g/dL Albumin 2.9 L (3.5-5.0) g/dL 12/24/21 12/24/21 Range/Units 08:06 10:18 RBC (3.80-5.40) m/uL Hgb (11.4-16.0) gm/dL Hct (34.0-46.0) % RDW (11.5-15.5) % Plt Count (150-450) k/uL Neutrophils # (1.3-7.7) k/uL Sodium (137-145) mmol/L Glucose (74-99) mg/dL POC Glucose (mg/dL) 149 H 130 H (75-99) mg/dL AST (14-36) U/L Alkaline Phosphatase (38-126) U/L Total Protein (6.3-8.2) g/dL Albumin (3.5-5.0) g/dL Assessment and Plan Assessment: 1 Symptomatic multivessel coronary artery disease, status post three-vessel coronary artery bypass grafting with DE LA CRUZ to LAD, SVG to the OM, SVG to the PDA, left atrial appendage exclusion with 35 mm Atriclip on 12/21/2021 2 Routine postoperative ventilator management, patient was successfully weaned and extubated on 12/22/2021 3 Acute blood loss anemia, an expected outcome of sternotomy, and bypass surgery, requiring transfusion with blood products, patient has received 2 units of packed red blood cells for hemoglobin of 5.9 4 History of substance abuse including cocaine, EtOH, and marijuana. Urine drug screen on the day of surgery on 12/21/2021 is positive for cocaine and benzodiazepines 5 History of single kidney, with history of nephrectomy 6 Chronic and ongoing tobacco dependence 7 History of CVA 8 Hypertension 9 Hyperlipidemia 10 History of COPD 11 Depression 12 History of hepatitis C Plan: The patient was seen and evaluated Chest x-ray, labs and medications reviewed Titrate down the FiO2 as tolerated Continue bronchodilators Increase her activity as tolerated Continue to watch for signs of withdrawal We'll continue to follow and make further recommendations based on her clinical status I have personally seen and examined the patient, performed the documentation and the assessment and plan as written. Number of minutes spent on the visit: 10.
--- NOTE | 2021-12-24 11:28 | P.PN ---
Subjective Progress Note Date: 12/24/21 Principal diagnosis: Coronary artery disease with left main disease. Past medical history significant for hypertension, current ongoing tobacco dependence with mild COPD, daily EtOH use (1 pint per day of liquor), occasional marijuana and cocaine use (UDS was positive for cocaine on admission), hepatitis C, CVA 20 years ago, and solitary kidney. POD #2 coronary artery bypass grafting 3 vessels, left internal mammary artery to the left anterior descending artery, a reverse saphenous vein graft to the obtuse marginal coronary artery, a reverse saphenous vein graft to the posterior descending coronary artery, endoscopic harvesting of the left greater saphenous vein, ligation of the left atrial appendage using a 35 mm AtriClip, epi-aortic ultrasound and intraoperative transesophageal echocardiogram Postoperative acute blood loss anemia and thrombocytopenia, expected given hemodilution and cardiopulmonary bypass pump. The patient was seen and examined in follow-up today 12/24/2021 at her bedside in the intensive care unit. Currently she is sitting up to the bedside chair, is awake, alert and oriented 3 and is in no acute distress. The patient remains hemodynamically stable and is currently on no inotropic or pressor support. Oxygen saturations are 96% on 6 L nasal cannula and she is achieving 500 mL on her incentive spirometry with encouragement. Left and right pleural chest tubes remain in place to low continuous wall suction -20 cm H2O. No air leak is present. Left pleural chest tube draining 160 mL output in the last 8 hours and 300 mL output in the last 24 hours. Right pleural chest tube draining 150 mL output the last 8 hours and 400 mL output in the last 24 hours. Bedside telemetry showing normal sinus rhythm heart rate 96 BPM. Atrial and ventricular epicardial pacemaker wires remain in place and connected to bedside backup pacemaker generator on a VVI 50. Chest x-ray was reviewed. Right IJ Cordis in place with continuous CVP monitoring, current CVP pressure 14 mmHg. According to the patient's night nurse she was refusing to ambulate with the nurses. Objective - Vital Signs Vital signs: Vital Signs Temp 98.2 F 12/24/21 08:00 Pulse 89 12/24/21 10:00 Resp 22 12/24/21 10:00 BP 125/76 12/24/21 10:00 Pulse Ox 91 L 12/24/21 10:00 FiO2 80 12/23/21 16:21 Intake & Output 12/23/21 12/24/21 12/24/21 18:59 06:59 18:59 Intake Total 1459.593 559.819 254.934 Output Total 1737 770 660 Balance -277.407 -210.181 -405.066 Weight 76.5 kg 77.4 kg Intake: IV 696 552 154 CARDIAC OUTPUT (0.9 40 Sodium Chloride) Lactated Ringers 560 480 130 Pressure Bag (0.9 Sodium 96 72 24 Chloride) Intake, IV Titration 13.593 7.819 100.934 Amount Insulin Regular 100 unit 13.593 7.819 0.934 In Sodium Chloride 0.9% 100 ml @ Per Protocol IV .Q0M YADY Rx#:[id number] Magnesium Sulfate-D5w Pmx 100 1 gm In Dextrose/Water 1 100ml.bag @ 100 mls/hr IVPB Q1H YADY Rx#: [id number] Oral 750 Output: Chest Tube Drainage 452 330 70 Chest Tube Left 112 180 40 Chest Tube Mediastinal 40 Chest Tube Right 300 150 30 Urine 1285 440 590 Other: Voiding Method Indwelling Catheter Indwelling Catheter ABP, PAP, CO, CI - Last Documented Arterial Blood Pressure 130/60 Pulmonary Artery Pressure 34/8 Cardiac Output 4.8 Cardiac Index 2.7 - Exam CONSTITUTIONAL: Currently sitting up to the bedside chair in the intensive care unit. She is awake, alert, and is in no acute distress. RESPIRATORY: Lungs sounds diminished throughout bilaterally. No wheezes, rhonchi or crackles. Respirations are symmetrical, and nonlabored. Oxygen saturation are 96% on 6 liters high flow nasal cannula and she is achieving 500 mL on her incentive spirometry with much encouragement. CARDIOVASCULAR: S1, S2 present. Regular rate and rhythm, sinus rhythm on telemetry. Sternum stable. Palpable peripheral pulses bilaterally. No edema present. No calf pain or tenderness noted. Heart hugger, antiembolism stockings, SCDs present. GASTROINTESTINAL: Abdomen soft, nontender, nondistended. Hypoactive bowel sounds present 4 quadrants. GENITOURINARY: Young present draining clear, yellow urine. Output 275 mL in the last 8 hours. INTEGUMENTARY: Skin is warm and dry with evidence of clubbing or cyanosis. midline sternal chest incision well approximated and covered with dry intact dressing. Left lower extremity EVH site well approximated without redness or drainage. NEUROLOGIC: Cranial nerves II through XII intact. No focal deficits. INVASIVE LINES AND TUBES: Left/right pleural chest tubes present and connected to wall suction, no air leaks present. Left pleural chest tube with 160 mL serosanguineous drainage in the last 8 hours, 300 mL in the last 24 hours. Right pleural chest tube draining thin serosanguineous drainage with 150 mL output in the last 8 hours and 400 mL output in the last 24 hours. A/V epicardial pacemaker wires present, connected to generator, VVI mode with backup rate 50 bpm. Right internal jugular [place]/Cordis, right radial arterial line present. CVP 14. - Allied health notes Allied health notes reviewed: nursing - Labs CBC & Chem 7: 12/24/21 04:35 12/24/21 04:35 Labs: Abnormal Lab Results - Last 24 Hours (Table) 12/23/21 12/23/21 12/23/21 Range/Units 12:18 13:10 14:18 RBC (3.80-5.40) m/uL Hgb (11.4-16.0) gm/dL Hct (34.0-46.0) % RDW (11.5-15.5) % Plt Count (150-450) k/uL Neutrophils # (1.3-7.7) k/uL Sodium (137-145) mmol/L Glucose (74-99) mg/dL POC Glucose (mg/dL) 159 H 219 H 133 H (75-99) mg/dL AST (14-36) U/L Alkaline Phosphatase (38-126) U/L Total Protein (6.3-8.2) g/dL Albumin (3.5-5.0) g/dL 12/23/21 12/23/21 12/23/21 Range/Units 15:18 16:15 17:20 RBC (3.80-5.40) m/uL Hgb (11.4-16.0) gm/dL Hct (34.0-46.0) % RDW (11.5-15.5) % Plt Count (150-450) k/uL Neutrophils # (1.3-7.7) k/uL Sodium (137-145) mmol/L Glucose (74-99) mg/dL POC Glucose (mg/dL) 101 H 132 H 142 H (75-99) mg/dL AST (14-36) U/L Alkaline Phosphatase (38-126) U/L Total Protein (6.3-8.2) g/dL Albumin (3.5-5.0) g/dL 12/23/21 12/23/21 12/23/21 Range/Units 18:49 19:55 22:08 RBC (3.80-5.40) m/uL Hgb (11.4-16.0) gm/dL Hct (34.0-46.0) % RDW (11.5-15.5) % Plt Count (150-450) k/uL Neutrophils # (1.3-7.7) k/uL Sodium (137-145) mmol/L Glucose (74-99) mg/dL POC Glucose (mg/dL) 127 H 128 H 140 H (75-99) mg/dL AST (14-36) U/L Alkaline Phosphatase (38-126) U/L Total Protein (6.3-8.2) g/dL Albumin (3.5-5.0) g/dL 12/23/21 12/24/21 12/24/21 Range/Units 23:58 02:15 04:34 RBC (3.80-5.40) m/uL Hgb (11.4-16.0) gm/dL Hct (34.0-46.0) % RDW (11.5-15.5) % Plt Count (150-450) k/uL Neutrophils # (1.3-7.7) k/uL Sodium (137-145) mmol/L Glucose (74-99) mg/dL POC Glucose (mg/dL) 132 H 129 H 143 H (75-99) mg/dL AST (14-36) U/L Alkaline Phosphatase (38-126) U/L Total Protein (6.3-8.2) g/dL Albumin (3.5-5.0) g/dL 12/24/21 12/24/21 12/24/21 Range/Units 04:35 04:35 06:18 RBC 2.94 L (3.80-5.40) m/uL Hgb 8.1 L (11.4-16.0) gm/dL Hct 26.1 L (34.0-46.0) % RDW 15.8 H (11.5-15.5) % Plt Count 81 L (150-450) k/uL Neutrophils # 8.5 H (1.3-7.7) k/uL Sodium 133 L (137-145) mmol/L Glucose 127 H (74-99) mg/dL POC Glucose (mg/dL) 129 H (75-99) mg/dL AST 56 H (14-36) U/L Alkaline Phosphatase 28 L (38-126) U/L Total Protein 5.1 L (6.3-8.2) g/dL Albumin 2.9 L (3.5-5.0) g/dL 12/24/21 12/24/21 Range/Units 08:06 10:18 RBC (3.80-5.40) m/uL Hgb (11.4-16.0) gm/dL Hct (34.0-46.0) % RDW (11.5-15.5) % Plt Count (150-450) k/uL Neutrophils # (1.3-7.7) k/uL Sodium (137-145) mmol/L Glucose (74-99) mg/dL POC Glucose (mg/dL) 149 H 130 H (75-99) mg/dL AST (14-36) U/L Alkaline Phosphatase (38-126) U/L Total Protein (6.3-8.2) g/dL Albumin (3.5-5.0) g/dL - Imaging and Cardiology Chest x-ray: report reviewed, image reviewed Assessment and Plan Assessment: 1. Coronary artery disease with left main disease, status post three-vessel CAB G 2. History of hypertension 3. Current ongoing tobacco dependence 4. Mild COPD, preoperative FEV1 was 73% of predicted 5. Daily EtOH use (1 pint per day of liquor) 6. Occasional marijuana and cocaine use (UDS was positive for cocaine on admission) 7. Hepatitis C 8. CVA 20 years ago 9. Solitary kidney. 10. Postoperative acute blood loss anemia and thrombocytopenia, expected Plan: 1. Continue aspirin, statin, Plavix, beta briana. Increase metoprolol tartrat e to 50 mg by mouth twice a day. 2. Wean O2 as tolerated. Encourage incentive spirometry use 10 times every hour while awake. Bronchodilators per pulmonology. 3. Will increase activity, ambulate as tolerated. PT/OT/cardiac rehab following. 4. Will monitor daily labs and chest x-rays. Electrolyte replacement per protocol. 5. GI/DVT prophylaxis. 6. Pain control current medication regimen. 7. CIWA protocol. 8. Insulin management per primary care services. Patient is not diabetic, preo perative hemoglobin A1c 5.4%. 9. Patient counseled preoperatively and will continue to be counseled throughout her stay that she should refrain from smoking, drinking, using illicit drugs. 10. Continue pleural chest tubes for another 24 hours. 11. Remove Young catheter, continue to record strict accurate intake and output. Daily weights. 12. Lasix 40 mg IV 1 now. 13. Potassium chloride 20 mEq by mouth 1 now. 14. Keep atrial and ventricular epicardial pacemaker wires in place and grounde d. 15. Remove right IJ Cordis. Remove right radial arterial line. 16. More recommendations to follow based on patient's clinical course. Time with Patient: Greater than 30
[2021-12-24 12:03] LABS: Glucose,Whole Blood 127 mg/dL (75-99)
[2021-12-24] MEDS: INSULIN ASPART (NovoLOG) 100 UNIT/ML VIAL SQ SCH ×3 (12:11→20:17)
[2021-12-24] MEDS: LORazepam 0.5 MG TAB PO PRN (14:43)
[2021-12-24 16:28] LABS: Glucose,Whole Blood 91 mg/dL (75-99)
--- NOTE | 2021-12-24 16:56 | PN ---
PROGRESS NOTE Mrs. Chinchilla is status post bypass surgery. She is doing well. Her blood pressure is slightly elevated. I am giving her amlodipine 5 mg. She is breathing much better today. She has complains of some incisional pain, but shortness of breath is better. She remains in sinus rhythm. S1-S2 heard normally. Short systolic murmur noted. Lungs reveal improved air entry. Abdomen and lower extremity exam unchanged. Plan is to continue current medications and incentive spirometry and pulmonary toilet. MMODL / IJN: [id number] /
[2021-12-24] MEDS: SENNOSIDES-DOCUSATE SODIUM 1 EACH TAB PO SCH (20:20)
[2021-12-24 20:27] LABS: Glucose,Whole Blood 112 mg/dL (75-99)
[2021-12-24] MEDS ORDERED: METOPROLOL TARTRATE 50 MG TAB PO SCH (21:00)
[2021-12-25] MEDS: LORazepam 0.5 MG TAB PO PRN (01:25)
[2021-12-25] MEDS: HYDROcodone/APAP 5-325MG 1 EACH TAB PO PRN ×4 (03:33→21:41)
[2021-12-25] MEDS: SODIUM CHLORIDE 0.9% 1,000 ML IV SCH (06:15)
[2021-12-25 06:18] LABS: ALT 14 U/L (4-34); AST 54 U/L (14-36); African American GFR (CKD) >90 (>60 ml/min/1.73 sqM); Albumin 3.1 g/dL (3.5-5.0); Alkaline Phosphatase 23 U/L (38-126); Anion Gap 6 mmol/L; Blood Urea Nitrogen 12 mg/dL (7-17); Calcium 8.5 mg/dL (8.4-10.2); Carbon Dioxide 22 mmol/L (22-30); Chloride 106 mmol/L (98-107); Glucose 108 mg/dL (74-99); Non-African American GFR(CKD) >90 (>60 ml/min/1.73 sqM); Potassium 4.1 mmol/L (3.5-5.1); Sodium 134 mmol/L (137-145); Total Bilirubin 0.6 mg/dL (0.2-1.3); Total Protein 5.6 g/dL (6.3-8.2)
[2021-12-25 06:22] LABS: Anisocytosis Slight; HCT 27.2 % (34.0-46.0); HGB 8.7 gm/dL (11.4-16.0); Hypochromasia Slight; MCH 28.2 pg (25.0-35.0); MCHC 31.8 g/dL (31.0-37.0); MCV 88.9 fL (80.0-100.0); Mean Platelet Volume 9.6; Platelet Count 118 k/uL (150-450); RBC 3.06 m/uL (3.80-5.40); RDW 16.2 % (11.5-15.5)
[2021-12-25 06:31] LABS: Glucose,Whole Blood 133 mg/dL (75-99)
[2021-12-25] MEDS: THIAMINE 100 MG TAB PO SCH ×2 (06:33→16:31)
[2021-12-25] MEDS: PANTOPRAZOLE 40 MG TABLET PO SCH (06:33)
[2021-12-25] MEDS: INSULIN ASPART (NovoLOG) 100 UNIT/ML VIAL SQ SCH ×4 (06:33→20:06)
[2021-12-25 06:40] LABS: Neutrophils % (M) 72 %; Nucleated Red Blood Cells 16 /100 WBC (0-0); Total Cells Counted 100
[2021-12-25 06:41] LABS: Anisocytosis (M) Present; Eosinophils # (M) 0.13 k/uL (0-0.7); Lymphocytes # (M) 0.88 k/uL (1.0-4.8); Monocytes # (M) 0.76 k/uL (0-1.0); Neutrophils # (M) 4.54 k/uL (1.3-7.7); Polychromasia Present; Target Cells Present; WBC 6.3 k/uL (3.8-10.6)
--- NOTE | 2021-12-25 07:01 | XR ---
EXAMINATION TYPE: XR chest 1V portable DATE OF EXAM: 12/25/2021 5:06 AM COMPARISON: Chest radiograph from one day prior. TECHNIQUE: XR chest 1V portable Portable AP radiograph of the chest. CLINICAL INDICATION:Female, 66 years old with history of Postoperative cardiac surgery; FINDINGS: Lungs/Pleura: Similar multifocal airspace opacities. No evidence of pneumothorax or pleural effusion. Pulmonary vascularity: Unremarkable. Heart/mediastinum: Cardiomediastinal silhouette is enlarged and stable. Musculoskeletal: No acute osseous pathology. Midline sternotomy wires are noted and stable. Lines/Tubes: Left thoracotomy tube is present without evidence of pneumothorax. Right thoracotomy tube is present without evidence of pneumothorax. IMPRESSION: 1. Similar mild pulmonary edema. 2. Bilateral thoracotomy tubes without evidence of pneumothorax. 3. Stable cardiomegaly
[2021-12-25] MEDS: IPRATROPIUM-ALBUTEROL 3 ML NEB INHALATION SCH ×5 (07:42→21:28)
[2021-12-25] MEDS ORDERED: FUROSEMIDE 10 MG/ML 4 ML VIAL IV STA (07:46)
[2021-12-25] MEDS ORDERED: POTASSIUM CHLORIDE ER 20 MEQ TAB.ER PO STA (07:48)
[2021-12-25] MEDS: amLODIPine 5 MG TAB PO SCH (08:04)
[2021-12-25] MEDS: FLUoxetine HCL 20 MG CAP PO SCH (08:04)
[2021-12-25] MEDS: FONDAPARINUX 2.5 MG/0.5 ML SYRINGE SQ SCH (08:04)
[2021-12-25] MEDS: MAGNESIUM SULFATE-D5W PMX 1 GM in DEXTROSE/WATER 1 100ML.BAG IVPB SCH ×2 (08:04→09:30)
[2021-12-25] MEDS: ASPIRIN 81 MG PO SCH (08:04)
[2021-12-25] MEDS: ATORVASTATIN 40 MG TAB PO SCH (08:04)
[2021-12-25] MEDS: MULTIVITAMINS, THERA 1 EACH TAB PO SCH (08:04)
[2021-12-25] MEDS: CLOPIDOGREL 75 MG TAB PO SCH (08:04)
[2021-12-25] MEDS: METOPROLOL TARTRATE 25 MG TAB PO SCH ×2 (08:08→20:07)
--- NOTE | 2021-12-25 09:23 | P.PN ---
Subjective Progress Note Date: 12/25/21 Principal diagnosis: Coronary artery disease with left main disease. Past medical history significant for hypertension, current ongoing tobacco dependence with mild COPD, daily EtOH use (1 pint per day of liquor), occasional marijuana and cocaine use (UDS was positive for cocaine on admission), hepatitis C, CVA 20 years ago, and solitary kidney. POD #3 coronary artery bypass grafting 3 vessels, left internal mammary artery to the left anterior descending artery, a reverse saphenous vein graft to the obtuse marginal coronary artery, a reverse saphenous vein graft to the posterior descending coronary artery, endoscopic harvesting of the left greater saphenous vein, ligation of the left atrial appendage using a 35 mm AtriClip, epi-aortic ultrasound and intraoperative transesophageal echocardiogram Postoperative acute blood loss anemia and thrombocytopenia, expected given hemodilution and cardiopulmonary bypass pump. The patient was seen and examined in follow-up today 12/25/2021 at her bedside in the intensive care unit. Currently she is sitting up to the bedside chair, is awake, alert and oriented 3 and is in no acute distress. The patient denies any complaints of shortness of breath or pain at this time. The patient does complain of some pain to her chest tube insertion sites with taking a deep breath and using her incentive spirometry at times. Oxygen saturation are 96% on 3 L nasal cannula and she is achieving 500-750 mL with much encouragement. Bedside telemetry is showing normal sinus rhythm heart rate 94 BPM. She remains hemodynamically stable and is currently on no inotropic or pressor support. Left and right pleural chest tubes remain in place to low continuous wall suction -20 cm H2O. No air leak is present. Draining thin serosanguineous drainage. Right pleural chest tube drained 15 mL in the last 8 hours and 130 mL output in the last 8 hours. Left pleural chest tube drained 60 mL output in the last 8 hours and 250 mL output in the last 24 hours. Her T-max temperature in the last 24 hours was 100.0F. Discussed the importance of getting up and ambulating with the patient as she has been resistant with nursing staff to ambulate. Chest x-ray and laboratory results reviewed. Objective - Vital Signs Vital signs: Vital Signs Temp 98.2 F 12/25/21 08:00 Pulse 99 12/25/21 08:00 Resp 15 12/25/21 08:00 BP 140/88 12/25/21 08:00 Pulse Ox 94 L 12/25/21 08:00 FiO2 80 12/23/21 16:21 Intake & Output 12/24/21 12/25/21 12/25/21 18:59 06:59 18:59 Intake Total 514.934 396 166 Output Total 990 620 150 Balance -475.066 -224 16 Weight 78.4 kg Intake: IV 414 396 166 Lactated Ringers 360 360 60 Magnesium Sulfate-D5w Pmx 100 1 gm In Dextrose/Water 1 100ml.bag @ 100 mls/hr IVPB Q1H Y[facility] Rx#: [id number] Pressure Bag (0.9 Sodium 54 36 6 Chloride) Intake, IV Titration 100.934 Amount Insulin Regular 100 unit 0.934 In Sodium Chloride 0.9% 100 ml @ Per Protocol IV .Q0M YADY Rx#:[id number] Magnesium Sulfate-D5w Pmx 100 1 gm In Dextrose/Water 1 100ml.bag @ 100 mls/hr IVPB Q1H YADY Rx#: [id number] Output: Chest Tube Drainage 100 95 Chest Tube Left 50 75 Chest Tube Right 50 20 Urine 890 525 150 Other: Voiding Method Incontinent External Catheter # Voids 1 1 0 ABP, PAP, CO, CI - Last Documented Arterial Blood Pressure 122/57 Pulmonary Artery Pressure 34/8 Cardiac Output 4.8 Cardiac Index 2.7 - Exam CONSTITUTIONAL: Currently sitting up to the bedside chair in the intensive care unit. She is awake, alert, and is in no acute distress. RESPIRATORY: Lungs sounds diminished throughout bilaterally. No wheezes, rhonchi or crackles. Respirations are symmetrical, and nonlabored. Oxygen saturation are 96% on 3 liters nasal cannula and she is achieving 500-750 mL on her incentive spirometry with much encouragement. CARDIOVASCULAR: S1, S2 present. Regular rate and rhythm, sinus rhythm on telemetry. Sternum stable. Palpable peripheral pulses bilaterally. No edema present. No calf pain or tenderness noted. Heart hugger, antiembolism stockings, SCDs present. GASTROINTESTINAL: Abdomen soft, nontender, nondistended. Active bowel sounds present 4 quadrants. Passing flatus. Tolerating diet. No guarding or rigidity. GENITOURINARY: Continues to void with some incontinent episodes. Output 325 mL in the last 8 hours. INTEGUMENTARY: Skin is warm and dry with evidence of clubbing or cyanosis. midline sternal chest incision well approximated and covered with dry intact dressing. Left lower extremity EVH site well approximated without redness or drainage. NEUROLOGIC: Cranial nerves II through XII intact. No focal deficits. INVASIVE LINES AND TUBES: Left/right pleural chest tubes present and connected to wall suction, no air leaks present. Left pleural chest tube with 60 mL serosanguineous drainage in the last 8 hours, 250 mL in the last 24 hours. Right pleural chest tube draining thin serosanguineous drainage with 15 mL output in the last 8 hours and 130 mL output in the last 24 hours. A/V epicardial pacemaker wires present, connected to generator, VVI mode with backup rate 50 bpm. Right internal jugular Cordis present. - Allied health notes Allied health notes reviewed: nursing - Labs CBC & Chem 7: 12/25/21 05:45 12/25/21 05:45 Labs: Abnormal Lab Results - Last 24 Hours (Table) 12/24/21 12/24/21 12/24/21 Range/Units 10:18 12:01 20:15 RBC (3.80-5.40) m/uL Hgb (11.4-16.0) gm/dL Hct (34.0-46.0) % RDW (11.5-15.5) % Plt Count (150-450) k/uL Lymphocytes # (Manual) (1.0-4.8) k/uL Nucleated RBCs (0-0) /100 WBC Sodium (137-145) mmol/L Glucose (74-99) mg/dL POC Glucose (mg/dL) 130 H 127 H 112 H (75-99) mg/dL AST (14-36) U/L Alkaline Phosphatase (38-126) U/L Total Protein (6.3-8.2) g/dL Albumin (3.5-5.0) g/dL 12/25/21 12/25/21 12/25/21 Range/Units 05:45 05:45 06:19 RBC 3.06 L (3.80-5.40) m/uL Hgb 8.7 L (11.4-16.0) gm/dL Hct 27.2 L (34.0-46.0) % RDW 16.2 H (11.5-15.5) % Plt Count 118 L (150-450) k/uL Lymphocytes # (Manual) 0.88 L (1.0-4.8) k/uL Nucleated RBCs 16 H (0-0) /100 WBC Sodium 134 L (137-145) mmol/L Glucose 108 H (74-99) mg/dL POC Glucose (mg/dL) 133 H (75-99) mg/dL AST 54 H (14-36) U/L Alkaline Phosphatase 23 L (38-126) U/L Total Protein 5.6 L (6.3-8.2) g/dL Albumin 3.1 L (3.5-5.0) g/dL - Imaging and Cardiology Chest x-ray: report reviewed, image reviewed Assessment and Plan Assessment: 1. Coronary artery disease with left main disease, status post three-vessel CABG 2. History of hypertension 3. Current ongoing tobacco dependence 4. Mild COPD, preoperative FEV1 was 73% of predicted 5. Daily EtOH use (1 pint per day of liquor) 6. Occasional marijuana and cocaine use (UDS was positive for cocaine on admission) 7. Hepatitis C 8. CVA 20 years ago 9. Solitary kidney. 10. Postoperative acute blood loss anemia and thrombocytopenia, expected Plan: 1. Continue aspirin, statin, Plavix, beta briana. Increase metoprolol tartrate to 75 mg by mouth twice a day. 2. Wean O2 as tolerated. Encourage incentive spirometry use 10 times every hour while awake. Bronchodilators per pulmonology. 3. Will increase activity, ambulate as tolerated. PT/OT/cardiac rehab following. 4. Will monitor daily labs and chest x-rays. Electrolyte replacement per protocol. 5. GI/DVT prophylaxis. 6. Pain control current medication regimen. 7. CIWA protocol. 8. Insulin management per primary care services. Patient is not diabetic, preoperative hemoglobin A1c 5.4%. 9. Patient counseled preoperatively and will continue to be counseled t hroughout her stay that she should refrain from smoking, drinking, using illicit drugs. 10. We will remove her right and left pleural chest tubes.. 11. Continue to record strict accurate intake and output. Daily weights. 12. Lasix 40 mg IV 1 now. 13. Potassium chloride 20 mEq by mouth 1 now. 14. Keep atrial and ventricular epicardial pacemaker wires in place and grounded. 15. Remove right IJ Cordis once able to obtain IV. 16. More recommendations to follow based on patient's clinical course. Time with Patient: Greater than 30
--- NOTE | 2021-12-25 10:19 | P.PN ---
Subjective Progress Note Date: 12/25/21 This is a 66-year-old female status post bypass surgery for left main disease and triple-vessel disease. Patient is sitting up in the chair. Complaining of not feeling well and claims that she could not sleep well. She has history of alcohol and cocaine abuse. Hemodynamically seems to be stable. Her blood pressure is running borderline high. The dose of the beta briana was increased. She is also on amlodipine. No arrhythmias are detected. Overall , She seemed to be stable from cardiac standpoint. Increase activity as tolerated. Incentive spirometry Objective - Vital Signs Vital signs: Vital Signs Temp 98.2 F 12/25/21 08:00 Pulse 82 12/25/21 09:00 Resp 24 12/25/21 09:00 BP 143/89 12/25/21 09:00 Pulse Ox 91 L 12/25/21 09:00 FiO2 80 12/23/21 16:21 Intake & Output 12/24/21 12/25/21 12/25/21 18:59 06:59 18:59 Intake Total 514.934 396 199 Output Total 990 620 150 Balance -475.066 -224 49 Weight 78.4 kg Intake: IV 414 396 199 Lactated Ringers 360 360 90 Magnesium Sulfate-D5w Pmx 100 1 gm In Dextrose/Water 1 100ml.bag @ 100 mls/hr IVPB Q1H YADY Rx#: [id number] Pressure Bag (0.9 Sodium 54 36 9 Chloride) Intake, IV Titration 100.934 Amount Insulin Regular 100 unit 0.934 In Sodium Chloride 0.9% 100 ml @ Per Protocol IV .Q0M YADY Rx#:[id number] Magnesium Sulfate-D5w Pmx 100 1 gm In Dextrose/Water 1 100ml.bag @ 100 mls/hr IVPB Q1H YADY Rx#: [id number] Output: Chest Tube Drainage 100 95 Chest Tube Left 50 75 Chest Tube Right 50 20 Urine 890 525 150 Other: Voiding Method Incontinent External Catheter External Catheter # Voids 1 1 1 ABP, PAP, CO, CI - Last Documented Arterial Blood Pressure 122/57 Pulmonary Artery Pressure 34/8 Cardiac Output 4.8 Cardiac Index 2.7 - Exam GENERAL EXAM: Patient is alert but seemed to be irritated because he couldn't sleep HEENT: Normocephalic. Normal reaction of pupils, equal size, normal range of extraocular motion. No erythema or exudates in the throat. NECK: No masses, no nuchal rigidity. CHEST: Postsurgical LUNGS: Diminished air entry HEART: S1 and S2 normal ABDOMEN: No hepatosplenomegaly, normal bowel sounds, no guarding or rigidity. SKIN: No rashes CENTRAL NERVOUS SYSTEM: No focal deficits. EXTREMITIES: No cyanosis, clubbing or edema. - Labs CBC & Chem 7: 12/25/21 05:45 12/25/21 05:45 Labs: Abnormal Lab Results - Last 24 Hours (Table) 12/24/21 12/24/21 12/24/21 Range/Units 10:18 12:01 20:15 RBC (3.80-5.40) m/uL Hgb (11.4-16.0) gm/dL Hct (34.0-46.0) % RDW (11.5-15.5) % Plt Count (150-450) k/uL Lymphocytes # (Manual) (1.0-4.8) k/uL Nucleated RBCs (0-0) /100 WBC Sodium (137-145) mmol/L Glucose (74-99) mg/dL POC Glucose (mg/dL) 130 H 127 H 112 H (75-99) mg/dL AST (14-36) U/L Alkaline Phosphatase (38-126) U/L Total Protein (6.3-8.2) g/dL Albumin (3.5-5.0) g/dL 12/25/21 12/25/21 12/25/21 Range/Units 05:45 05:45 06:19 RBC 3.06 L (3.80-5.40) m/uL Hgb 8.7 L (11.4-16.0) gm/dL Hct 27.2 L (34.0-46.0) % RDW 16.2 H (11.5-15.5) % Plt Count 118 L (150-450) k/uL Lymphocytes # (Manual) 0.88 L (1.0-4.8) k/uL Nucleated RBCs 16 H (0-0) /100 WBC Sodium 134 L (137-145) mmol/L Glucose 108 H (74-99) mg/dL POC Glucose (mg/dL) 133 H (75-99) mg/dL AST 54 H (14-36) U/L Alkaline Phosphatase 23 L (38-126) U/L Total Protein 5.6 L (6.3-8.2) g/dL Albumin 3.1 L (3.5-5.0) g/dL Assessment and Plan (1) Status post aorto-coronary artery bypass graft Current Visit: Yes Status: Acute Code(s): Z95.1 - PRESENCE OF AORTOCORONARY BYPASS GRAFT SNOMED Code(s): 010516609 (2) CAD (coronary artery disease) Current Visit: Yes Status: Acute Code(s): I25.10 - ATHSCL HEART DISEASE OF [place] CORONARY ARTERY W/O ANG PCTRS SNOMED Code(s): 91517351 (3) History of alcohol use Current Visit: Yes Status: Acute Code(s): Z87.898 - PERSONAL HISTORY OF OTHER SPECIFIED CONDITIONS SNOMED Code(s): 186657707 Plan: Continue current management. Increase activity as tolerated. Incentive spirometry. Further recommendations depend upon the clinical course. Beta briana dose was already increase
--- NOTE | 2021-12-25 11:28 | P.PN ---
Subjective Progress Note Date: 12/25/21 This is a 66-year-old -[place] female patient of Dr. Allan with past medical history of hypertension, hyperlipidemia, CVA, single kidney with right nephrectomy, history of hepatitis C, COPD, current tobacco dependence, depression, daily EtOH use, occasional marijuana and cocaine use. Patient had recently been complaining of chest pain and shortness of breath for 2 months, she was seen by cardiology, she follows with Dr. Hutchison, she underwent stress testing which was abnormal and subsequently she had a heart catheterization that demonstrated 85% left main disease, totally occluded RCA with collateral from the left side, proximal LAD stenosis of 95%, mid LAD stenosis of a 50% with distal LAD stenosis of 70%, and circumflex with mild disease of 30-40%. Due to these findings patient was referred to cardiothoracic surgery for surgical revascularization. Transthoracic echocardiogram from 12/09/2021 showed preserved LV function with ejection fraction of 55-60%, mildly increased septal wall thickness and posterior wall thickness. There was mild mitral regurg, aortic valve was structurally normal without significant sclerosis or stenosis or aortic regurgitation, pulmonary artery systolic pressure was normal, there was trace tricuspid regurg. Bedside PFT showed FEV1 of 1.68 L or 73% of predicted, FVC of 2.04, or 68% of predicted, and FEV1 to FEC ratio of 107%, MCV of 63, and this was consistent with mild restrictive pulmonary physiology. Today on 12/21/2021 patient presented to the hospital, and underwent three- vessel coronary artery bypass surgery with DE LA CRUZ to the LAD, SVG to the OM, SVG to the PDA,, left atrial appendage exclusion with 35 mm Atriclip, intraoperative CHAD, and appendectomy aortic scanning. Patient has known history of substance abuse, and her urine drug screen the day of surgery on 12/21/2021 was positive for benzodiazepines and cocaine. We seen the patient in the postoperative period in the ICU, patient is still sedated and intubated, on assist-control mode with a rate of 12, tidal lamberts 400, FiO2 of 100% and PEEP of 5, postoperative blood gas shows pO2 156, pCO2 51, and pH of 7.30 and this was done on the above-mentioned ventilator settings and FiO2 had since been dropped down to 80%. Chest x-ray showing ET tube 2 cm above the henrry, right internal jugular Table [place]-Pamela in place, bilateral pleural and mediastinal chest tubes in place. No pneumothorax. Patient is in sinus mechanism with a rate of 71, blood pressure is 148/63, PA pressures 33/16, CVP 7-8, cardiac output is 3.6, and cardiac index is 2.0. With SVR of 1400. Currently patient is on lactated Ringer's at 50 ML per hour, insulin is at 0.5 units per hour, nitroglycerin is up 5 mics per kilo per minute, and milrinone is at 0.3 mics per kilo per minute. Right and left pleural chest tubes connected together, and mediastinal chest tube with minimal sanguinous output. No air leak noted. Young catheter is in place, patient is producing 50-65 ML per hour. On 12/22/2021 patient seen in follow-up in intensive care unit, she is waking up, she remains intubated on mechanical ventilator, on assist-control with a rate of 12, tidal volume was 400, FiO2 of 60% and PEEP of 5. This point his blood gas showed pO2 of 68, pCO2 of 43, and pH of 7.39, and this was done on those above-mentioned ventilator settings, patient has since been placed on pressure support of 5 and CPAP of 5 with FiO2 of 50%. She is doing good, she is opening eyes to voice, follows simple commands, appears to be in no acute distress, hemodynamically she is been stable, she is in sinus mechanism with a rate of 90 BPM, she remains on small amount of milrinone at 0.1 cameron per kilo per minute, she is on lactated Ringer's at 50 ML per hour, norepinephrine at 0.08 units per kilo per minute, Cleviprex and nitroglycerin infusions have been discontinued. Today's chest x-ray has been reviewed showing scattered bibasilar infiltrates likely related to atelectasis. PA pressure is 36/17, CVP is 9, cardiac output is 4.8, and cardiac index is 2.7. This morning's labs have been reviewed showing globin of 5.9, white blood cell count of 6.4, platelet count of 99, sodium is 138, potassium is 4.2, chloride is 108, BUN is 15, creatinine is 1.05. Patient was transfused with 1 unit of packed red blood cells, repeat labs from this morning show hemoglobin if 6.6, and patient will receive another unit of packed red blood cells. Patient has a mediastinal chest tube in place and 1 left pleural and one right pleural white connected together, and pleural chest tubes put out 650 mL of serosanguineous output in the last 24 hours, and there is been 300 mL of serous and was output from the mediastinal chest tube. Remains on cefazolin for prophylactic antibiotic coverage. Patient has been started on aspirin, Lipitor, Plavix, she is on subcu heparin, metoprolol 12.5 mg twice daily, Protonix for GI prophylaxis. She is on Ativan per CIWA protocol, and thiamine replacements. Patient's weaning parameters and blood gas following spontaneous breathing trials were satisfactory, and spontaneous tidal volumes were 375, respiratory rate was 20, minute ventilation was 7.35 L/m, R SBI was 60, and this was -25, and we were unable to obtain vital. Blood gas was satisfactory with pO2 of 112, pCO2 44, and pH of 7.38 on pressure-support of 5 and CPAP of 5 and FiO2 of 50%. Patient looks comfortable, and she had a positive cuff week as well. She was extubated and tolerating extubation well. Midsternal incision is clean dry and intact, chest tube sites are clean dry and intact, left leg and the right leg Tad wrap. On 12/23/2021 patient seen in follow-up in intensive care unit, today is postoperative day #2, status post three-vessel coronary artery bypass grafting. She was successfully weaned and extubated yesterday on 12/22/2021, however in the evening she developed respiratory difficulty, hypoxia and required to go on BiPAP support with pressures of 12 and 5 and FiO2 of 100%, which was then weaned down to 50%. Her chest x-ray at 1720 last night showed bilateral chest tubes without evidence of pneumothorax, layering bilateral pleural effusions with associated subsegmental atelectasis, and coronary vascular congestion with cardiomegaly. Patient received one-time dose of IV Lasix she has produced 2.9 L in the urine output over the last 24 hours, however still remains in positive fluid balance of 769 mL over last 24 hours, her right and left pleural chest tubes have been by CT surgery last night, and right-sided pleural chest tube has put out 400 mL of bright red blood overnight, left pleural chest tube only put out 25 mL, and mediastinal chest tube 150 the last 24 hours. Patient received 3 units of packed red blood cells yesterday, his labs have been reviewed, hemoglobin is 8.2, white count is 11.1, platelet count is 75. Sodium is 138, potassium 3.8, chloride is 109, BUN is 13, creatinine 0.84. Hemodynamically patient is improved, her norepinephrine drip has been off since yesterday afternoon, milrinone drip has been discontinued this morning, she remains on Vicodin Ringer's at 50 ML per hour, and insulin at 2 units per hour, she is currently awake and alert, she is on 15 L per high flow nasal cannula, sitting up in a recliner, her incentive spirometer effort is suboptimal, patient is achieving about 500 to sometimes 700 mL on the incentive spirometer, lung sounds are diminished, poor inspiratory effort, there are scattered diffuse crackles throughout. Today's chest x-ray shows continued bilateral patchy opacities throughout both but improving aeration in the lower lungs, bilateral pleural chest tubes in place, no appreciable pneumothorax. PA pressure is 35/13, CVP is 7, cardiac output is 5.4, cardiac index 3.1. Patient states her pain is tolerable, she rates it 7 out of 10, and it is in the anterior sternum incisional area. Patient is tolerating sips of clear liquids. Diet has been ordered for her this morning. The patient is seen today 12/24/2021 in follow-up in the intensive care unit. Postoperative day #3 of the three-vessel coronary artery bypass surgery. She is currently sitting up in a chair at the bedside. Awake and alert in no acute distress. Maintaining O2 saturations in the 90s on 6 L high flow nasal cannula. Bilateral end mediastinal chest tubes remain in place. Chest x-ray reveals no evidence of pneumothorax. Persistent mild cardiomegaly with bilateral multifocal edema/infiltrate. No significant change compared to yesterday. She is pulling only about 500 ML's on her incentive spirometer at this morning. She did not utilize BiPAP last night. She remains on lactated Ringer's at 40 miles per hour. Insulin drip at 1 unit per hour. She is status post 3 units of packed red blood cells this admission. White count 10.6. Hemoglobin 8.1. Platelet count 81,000. Sodium 133. Potassium 4.2. BUN 12. Creatinine 0.69. Glucose 127. AST 56. ALT 13. CVP is 7. Cardiac output 4.8. Cardiac index 2.7. Blood pressure stable. Pacer wires in place. Remains in a -500 ML balance. Continued on DuoNeb inhalations. The patient is seen today 12/25/2021 in follow-up in the intensive care unit. This is postoperative day #4. She is currently resting comfortably in bed. Awake and alert in no acute distress. Chest tubes have been removed. She is maintaining O2 saturations in the 90s on 4 L/m per nasal cannula. Chest lactated Ringer's running at 30 MLS per hour. She is continuing to work with the incentive spirometer. Chest x-ray reveals some mild pulmonary edema. Stable cardiomegaly. No evidence of pneumothorax. She is status post 3 units of packed red blood cells this admission. Current hemoglobin 8.7. Platelets 118. White count 6.3. Sodium 134. Potassium 4.1. Bicarb 22. BUN 12. Creatinine 0.61. Glucose 18. AST 54, ALT 14. Initiated on Arixtra. Objective - Vital Signs Vital signs: Vital Signs Temp 98.2 F 12/25/21 08:00 Pulse 80 12/25/21 11:00 Resp 24 12/25/21 11:00 BP 112/66 12/25/21 10:00 Pulse Ox 94 L 12/25/21 11:00 FiO2 80 12/23/21 16:21 Intake & Output 12/24/21 12/25/21 12/25/21 18:59 06:59 18:59 Intake Total 514.934 396 332 Output Total 990 620 550 Balance -475.066 -224 -218 Weight 78.4 kg Intake: IV 414 396 332 Lactated Ringers 360 360 120 Magnesium Sulfate-D5w Pmx 200 1 gm In Dextrose/Water 1 100ml.bag @ 100 mls/hr IVPB Q1H YADY Rx#: [id number] Pressure Bag (0.9 Sodium 54 36 12 Chloride) Intake, IV Titration 100.934 Amount Insulin Regular 100 unit 0.934 In Sodium Chloride 0.9% 100 ml @ Per Protocol IV .Q0M YADY Rx#:[id number] Magnesium Sulfate-D5w Pmx 100 1 gm In Dextrose/Water 1 100ml.bag @ 100 mls/hr IVPB Q1H YADY Rx#: [id number] Output: Chest Tube Drainage 100 95 Chest Tube Left 50 75 Chest Tube Right 50 20 Urine 890 525 550 Other: Voiding Method Incontinent External Catheter External Catheter # Voids 1 1 1 ABP, PAP, CO, CI - Last Documented Arterial Blood Pressure 122/57 Pulmonary Artery Pressure 34/8 Cardiac Output 4.8 Cardiac Index 2.7 - Exam GENERAL EXAM: Awake, alert, 66-year-old female patient on 4L high flow nasal cannula, comfortable in no apparent distress. HEAD: Normocephalic/atraumatic. EYES: Normal reaction of pupils, equal size. Conjunctiva pink, sclera white. NOSE: Clear with pink turbinates. THROAT: No erythema or exudates. NECK: No masses, no JVD, no thyroid enlargement, no adenopathy. CHEST: Heart hugger in place Symmetrical expansion. Midsternal incision is clean dry and intact, chest tubes removed LUNGS: Equal air entry with no crackles, wheeze, rhonchi or dullness. CVS: Regular rate and rhythm, normal S1 and S2, no gallops, no murmurs, no rubs ABDOMEN: Soft, nontender. No hepatosplenomegaly, normal bowel sounds, no guarding or rigidity. EXTREMITIES: No clubbing, no edema, no cyanosis, 2+ pulses and upper and lower extremities. MUSCULOSKELETAL: Muscle strength and tone normal. SPINE: No scoliosis or deformity SKIN: No rashes, left leg interrupted incision covered with Tad wrap - Labs CBC & Chem 7: 12/25/21 05:45 12/25/21 05:45 Labs: Abnormal Lab Results - Last 24 Hours (Table) 12/24/21 12/24/21 12/25/21 Range/Units 12:01 20:15 05:45 RBC 3.06 L (3.80-5.40) m/uL Hgb 8.7 L (11.4-16.0) gm/dL Hct 27.2 L (34.0-46.0) % RDW 16.2 H (11.5-15.5) % Plt Count 118 L (150-450) k/uL Lymphocytes # (Manual) 0.88 L (1.0-4.8) k/uL Nucleated RBCs 16 H (0-0) /100 WBC Sodium (137-145) mmol/L Glucose (74-99) mg/dL POC Glucose (mg/dL) 127 H 112 H (75-99) mg/dL AST (14-36) U/L Alkaline Phosphatase (38-126) U/L Total Protein (6.3-8.2) g/dL Albumin (3.5-5.0) g/dL 12/25/21 12/25/21 Range/Units 05:45 06:19 RBC (3.80-5.40) m/uL Hgb (11.4-16.0) gm/dL Hct (34.0-46.0) % RDW (11.5-15.5) % Plt Count (150-450) k/uL Lymphocytes # (Manual) (1.0-4.8) k/uL Nucleated RBCs (0-0) /100 WBC Sodium 134 L (137-145) mmol/L Glucose 108 H (74-99) mg/dL POC Glucose (mg/dL) 133 H (75-99) mg/dL AST 54 H (14-36) U/L Alkaline Phosphatase 23 L (38-126) U/L Total Protein 5.6 L (6.3-8.2) g/dL Albumin 3.1 L (3.5-5.0) g/dL Assessment and Plan Assessment: 1 Symptomatic multivessel coronary artery disease, status post three-vessel coronary artery bypass grafting with DE LA CRUZ to LAD, SVG to the OM, SVG to the PDA, left atrial appendage exclusion with 35 mm Atriclip on 12/21/2021 2 Routine postoperative ventilator management, patient was successfully weaned and extubated on 12/22/2021 3 Acute blood loss anemia, an expected outcome of sternotomy, and bypass surgery, requiring transfusion with blood products, patient has received 3 units of packed red blood cells, current hemoglobin 8.7 4 History of substance abuse including cocaine, EtOH, and marijuana. Urine drug screen on the day of surgery on 12/21/2021 is positive for cocaine and benzodiazepines 5 History of single kidney, with history of nephrectomy 6 Chronic and ongoing tobacco dependence 7 History of CVA 8 Hypertension 9 Hyperlipidemia 10 History of COPD 11 Depression 12 History of hepatitis C Plan: The patient was seen and evaluated Chest x-ray, labs and medications reviewed Titrate down the FiO2 as tolerated Continue bronchodilators and incentive spirometer Increase her activity as tolerated We'll continue to follow I have personally seen and examined the patient, performed the documentation and the assessment and plan as written. Number of minutes spent on the visit: 10.
[2021-12-25 11:33] LABS: Glucose,Whole Blood 134 mg/dL (75-99)
[2021-12-25] MEDS ORDERED: MELATONIN 3 MG TABLET PO PRN (14:40)
[2021-12-25 16:29] LABS: Glucose,Whole Blood 106 mg/dL (75-99)
[2021-12-25] MEDS: SENNOSIDES-DOCUSATE SODIUM 1 EACH TAB PO SCH (20:07)
[2021-12-25 20:14] LABS: Glucose,Whole Blood 104 mg/dL (75-99)
[2021-12-26] MEDS: LORazepam 2 MG/ML INJ IV PRN ×5 (01:18→07:44)
[2021-12-26] MEDS ORDERED: HALOPERIDOL LACTATE 5 MG/ML 1 ML VIAL IM ONE (01:58)
[2021-12-26] MEDS ORDERED: HALOPERIDOL LACTATE 5 MG/ML 1 ML VIAL IVP ONE ×2 (02:06→04:52)
--- NOTE | 2021-12-26 06:53 | XR ---
EXAMINATION TYPE: XR chest 1V portable DATE OF EXAM: 12/26/2021 COMPARISON: 12/22/2021 HISTORY: Postop cardiac surgery TECHNIQUE: Single frontal view of the chest is obtained. FINDINGS: There has been interval removal of the ET tube, NG tube, [place]-Pamela catheter, mediastinal t ube and chest tubes. The heart size is enlarged and there is moderate pulmonary vascular congestion and interstitial edema . There is no pneumothorax. There are median sternotomy wires otherwise the osseous structures are in tact. IMPRESSION: Interval removal of chest tubes, mediastinal tube, [place]-Pamela catheter, NG tube and ET tu be. There is no pneumothorax but there is moderate pulmonary vascular congestion and interstitial cherise ma. The heart is enlarged.
[2021-12-26 06:57] LABS: ALT 14 U/L (4-34); AST 41 U/L (14-36); African American GFR (CKD) >90 (>60 ml/min/1.73 sqM); Albumin 2.7 g/dL (3.5-5.0); Alkaline Phosphatase 27 U/L (38-126); Anion Gap 5 mmol/L; Blood Urea Nitrogen 11 mg/dL (7-17); Calcium 8.4 mg/dL (8.4-10.2); Carbon Dioxide 25 mmol/L (22-30); Chloride 103 mmol/L (98-107); Glucose 99 mg/dL (74-99); Magnesium 1.7 mg/dL (1.6-2.3); Non-African American GFR(CKD) >90 (>60 ml/min/1.73 sqM); Potassium 3.6 mmol/L (3.5-5.1); Sodium 133 mmol/L (137-145); Total Bilirubin 0.7 mg/dL (0.2-1.3); Total Protein 5.1 g/dL (6.3-8.2)
[2021-12-26] MEDS: INSULIN ASPART (NovoLOG) 100 UNIT/ML VIAL SQ SCH ×3 (07:02→17:30)
[2021-12-26 07:03] LABS: Glucose,Whole Blood 137 mg/dL (75-99)
[2021-12-26 07:05] LABS: Basophils % (A) 0 %; Eosinophils % (A) 0 %; HCT 23.7 % (34.0-46.0); HGB 7.5 gm/dL (11.4-16.0); Hypochromasia Slight; Lymphocytes # (A) 0.9 k/uL (1.0-4.8); Lymphocytes % (A) 14 %; MCHC 31.6 g/dL (31.0-37.0); MCV 88.6 fL (80.0-100.0); Mean Platelet Volume 9.6; Monocytes # (A) 0.9 k/uL (0-1.0); Monocytes % (A) 13 %; Neutrophils # (A) 4.5 k/uL (1.3-7.7); Neutrophils % (A) 69 %; Platelet Count 161 k/uL (150-450); RBC 2.68 m/uL (3.80-5.40); RDW 15.5 % (11.5-15.5); WBC 6.5 k/uL (3.8-10.6)
[2021-12-26 07:59] LABS: ABG Base Excess 1.6 mmol/L; ABG HCO3 25 mmol/L (21-25); ABG Oxygen Saturation 94.2 % (94-97); ABG PCO2 34 mmHg (35-45); ABG PH 7.48 (7.35-7.45); ABG PO2 66 mmHg (83-108); ABG TCO2 26 mmol/L (19-24); Allen Test Performed? Yes
[2021-12-26] MEDS: IPRATROPIUM-ALBUTEROL 3 ML NEB INHALATION SCH ×4 (08:06→20:30)
[2021-12-26] MEDS: METOPROLOL TARTRATE 25 MG TAB PO SCH ×2 (08:17→21:03)
[2021-12-26] MEDS: FLUoxetine HCL 20 MG CAP PO SCH (08:17)
[2021-12-26] MEDS: ASPIRIN 81 MG PO SCH (08:17)
[2021-12-26] MEDS: amLODIPine 5 MG TAB PO SCH (08:17)
[2021-12-26] MEDS: THIAMINE 100 MG TAB PO SCH ×2 (08:17→17:44)
[2021-12-26] MEDS: ATORVASTATIN 40 MG TAB PO SCH (08:17)
[2021-12-26] MEDS: CLOPIDOGREL 75 MG TAB PO SCH (08:17)
[2021-12-26] MEDS: PANTOPRAZOLE 40 MG TABLET PO SCH (08:17)
[2021-12-26] MEDS: MULTIVITAMINS, THERA 1 EACH TAB PO SCH (08:18)
[2021-12-26] MEDS: MAGNESIUM SULFATE-D5W PMX 1 GM in DEXTROSE/WATER 1 100ML.BAG IVPB SCH ×2 (08:45→10:30)
[2021-12-26] MEDS: POTASSIUM CHLORIDE 10 MEQ in WATER FOR INJECTION 1 100ML.BAG IVPB SCH ×2 (08:45→10:30)
[2021-12-26] MEDS: FONDAPARINUX 2.5 MG/0.5 ML SYRINGE SQ SCH (08:52)
[2021-12-26] MEDS ORDERED: DEXMEDETOMIDINE/0.9% NACL(PMX) 400 MCG in EMPTY BAG 1 BAG IV SCH (09:00)
[2021-12-26] MEDS: FUROSEMIDE 10 MG/ML 4 ML VIAL IV SCH ×2 (09:01→17:44)
[2021-12-26] MEDS: POTASSIUM CHLORIDE ER 20 MEQ TAB.ER PO STA ×2 (09:03→11:09)
[2021-12-26 09:28] LABS: Appearance,Urine Clear (Clear); Bacteria,Urine Rare /hpf; Bilirubin,Urine Negative (Negative); Blood,Urine Negative (Negative); Color,Urine Light Yellow; Glucose,Urine (UA) Negative (Negative); Ketones,Urine 1+ (Negative); Leukocyte Esterase,Urine Negative (Negative); Mucus,Urine Rare /hpf; Nitrite,Urine Negative (Negative); PH, Urine 7.5 (5.0-8.0); Protein,Urine Negative (Negative); RBC,Urine <1 /hpf (0-5); Specific Gravity,Urine 1.007 (1.001-1.035); Squamous Epithelial Cell,Urine <1 /hpf (0-4)
[2021-12-26] MEDS ORDERED: LORazepam 2 MG/ML INJ IV STA (09:34)
[2021-12-26] MEDS ORDERED: CISATRACURIUM 2 MG/ML 5 ML VIAL IV ONE (09:34)
[2021-12-26] MEDS ORDERED: MORPHINE SULFATE 4 MG/ML SYRINGE IVP STA (09:34)
[2021-12-26] MEDS ORDERED: SUCCINYLCHOLINE CHLORIDE VIAL 200 MG/10 ML VIAL IV STA (09:37)
--- NOTE | 2021-12-26 10:02 | P.PN ---
Subjective Progress Note Date: 12/26/21 Principal diagnosis: Coronary artery disease with left main disease. Past medical history significant for hypertension, current ongoing tobacco dependence with mild COPD, daily EtOH use (1 pint per day of liquor), occasional marijuana and cocaine use (UDS was positive for cocaine on admission), hepatitis C, CVA 20 years ago, and solitary kidney. POD #5 coronary artery bypass grafting 3 vessels, left internal mammary artery to the left anterior descending artery, a reverse saphenous vein graft to the obtuse marginal coronary artery, a reverse saphenous vein graft to the posterior descending coronary artery, endoscopic harvesting of the left greater saphenous vein, ligation of the left atrial appendage using a 35 mm AtriClip, epi-aortic ultrasound and intraoperative transesophageal echocardiogram Postoperative acute blood loss anemia and thrombocytopenia, expected given hemodilution and cardiopulmonary bypass pump. Restlessness and agitation, possibly secondary to alcohol withdrawal The patient was seen and examined in follow-up today 12/26/2021 at her bedside in the intensive care unit. Patient is currently laying in bed, is agitated, restless and diaphoretic. She is moving all 4 extremities with equal strength bilateral. Denies any complaints of pain at this time. Oxygen saturations are 95% on 6 L high flow nasal cannula and she is not able to use her incentive spirometry at this time. Bedside telemetry showing sinus tachycardia heart rate 101 BPM. The patient is tachypneic with respiratory rate 35 breaths per minute. T-max temperature in the last 24 hours is 100F. Laboratory results this morning show a WBC count 6.5, hemoglobin 7.5, hematocrit 23.7, platelets 161, sodium 133, potassium 3.6, BUN 11, creatinine 0.63, glucose 99, calcium 8.4, magnesium 1.7, AST 41 and ALT 14. ABG results show a pH of 7.48, pCO2 34, pO2 66, HCO3 25, oxygen saturation 94.2 and base excess 1.6. Due to the patient's history of EtOH abuse, agitation and restlessness [facility] protocol has been followed, she is also received 2 doses of Haldol 5 mg IV. Chest x-ray report this morning shows no pneumothorax, moderate pulmonary vascular congestion and interstitial edema. Objective - Vital Signs Vital signs: Vital Signs Temp 100.0 F H 12/26/21 09:00 Pulse 101 H 12/26/21 09:00 Resp 48 H 12/26/21 09:00 BP 157/81 12/26/21 09:00 Pulse Ox 95 12/26/21 09:00 FiO2 80 12/23/21 16:21 Intake & Output 12/25/21 12/26/21 12/26/21 18:59 06:59 18:59 Intake Total 497 200.57 Output Total 1725 850 100 Balance -1228 -850 100.57 Weight 76 kg Intake: IV 497 200 Lactated Ringers 270 Magnesium Sulfate-D5w Pmx 200 1 gm In Dextrose/Water 1 100ml.bag @ 100 mls/hr IVPB Q1H YADY Rx#: [id number] Magnesium Sulfate-D5w Pmx 100 1 gm In Dextrose/Water 1 100ml.bag @ 100 mls/hr IVPB Q1H YADY Rx#: [id number] Potassium Chloride 10 meq 100 In Water For Injection 1 100ml.bag @ 100 mls/hr IVPB Q1H YADY Rx#: [id number] Pressure Bag (0.9 Sodium 27 Chloride) Intake, IV Titration 0.57 Amount Dexmedetomidine/0.9% NaCl 0.57 (Pmx) 400 mcg In Empty Bag 1 bag @ 0.2 MCG/KG/HR 3.8 mls/hr IV .Q24H YADY Rx#:[id number] Output: Urine 1725 850 100 Other: Voiding Method External Catheter External Catheter # Voids 0 0 0 ABP, PAP, CO, CI - Last Documented Arterial Blood Pressure 122/57 Pulmonary Artery Pressure 34/8 Cardiac Output 4.8 Cardiac Index 2.7 - Exam CONSTITUTIONAL: Currently laying in bed in the intensive care unit. She is awake, agitated and restless. RESPIRATORY: Lungs sounds diminished throughout bilaterally. No wheezes, rhonchi or crackles. Respirations are symmetrical, and tachypneic. Oxygen saturation are 95% on 6 liters high flow nasal cannula and she is not able to use her incentive spirometry at this time. CARDIOVASCULAR: S1, S2 present. Regular tachycardic rate and rhythm, sinus tachycardia rhythm on telemetry. Sternum stable. Palpable peripheral pulses bilaterally. No edema present. No calf pain or tenderness noted. Heart hugger, antiembolism stockings, SCDs present. GASTROINTESTINAL: Abdomen soft, nontender, nondistended. Active bowel sounds present 4 quadrants. Passing flatus. No guarding or rigidity. GENITOURINARY: Purewick catheter in place. Output 350 mL in the last 8 hours. INTEGUMENTARY: Skin is warm and dry with evidence of clubbing or cyanosis. midline sternal chest incision well approximated and covered with dry intact dressing. Left lower extremity EVH site well approximated without redness or drainage. NEUROLOGIC: Equal strength in bilateral upper and lower extremities. No focal deficits. Restless and agitated. INVASIVE LINES AND TUBES: A/V epicardial pacemaker wires present, and grounded. - Allied health notes Allied health notes reviewed: nursing - Labs CBC & Chem 7: 12/26/21 05:41 12/26/21 05:41 Labs: Abnormal Lab Results - Last 24 Hours (Table) 12/25/21 12/25/21 12/25/21 Range/Units 11:31 16:26 20:03 RBC (3.80-5.40) m/uL Hgb (11.4-16.0) gm/dL Hct (34.0-46.0) % Lymphocytes # (1.0-4.8) k/uL ABG pH (7.35-7.45) ABG pCO2 (35-45) mmHg ABG pO2 (83-108) mmHg ABG Total CO2 (19-24) mmol/L Sodium (137-145) mmol/L POC Glucose (mg/dL) 134 H 106 H 104 H (75-99) mg/dL AST (14-36) U/L Alkaline Phosphatase (38-126) U/L Total Protein (6.3-8.2) g/dL Albumin (3.5-5.0) g/dL Urine Ketones (Negative) Urine Bacteria (None) /hpf Urine Mucus (None) /hpf 12/26/21 12/26/21 12/26/21 Range/Units 05:41 05:41 06:54 RBC 2.68 L (3.80-5.40) m/uL Hgb 7.5 L (11.4-16.0) gm/dL Hct 23.7 L (34.0-46.0) % Lymphocytes # 0.9 L (1.0-4.8) k/uL ABG pH (7.35-7.45) ABG pCO2 (35-45) mmHg ABG pO2 (83-108) mmHg ABG Total CO2 (19-24) mmol/L Sodium 133 L (137-145) mmol/L POC Glucose (mg/dL) 137 H (75-99) mg/dL AST 41 H (14-36) U/L Alkaline Phosphatase 27 L (38-126) U/L Total Protein 5.1 L (6.3-8.2) g/dL Albumin 2.7 L (3.5-5.0) g/dL Urine Ketones (Negative) Urine Bacteria (None) /hpf Urine Mucus (None) /hpf 12/26/21 12/26/21 Range/Units 07:50 09:07 RBC (3.80-5.40) m/uL Hgb (11.4-16.0) gm/dL Hct (34.0-46.0) % Lymphocytes # (1.0-4.8) k/uL ABG pH 7.48 H (7.35-7.45) ABG pCO2 34 L (35-45) mmHg ABG pO2 66 L (83-108) mmHg ABG Total CO2 26 H (19-24) mmol/L Sodium (137-145) mmol/L POC Glucose (mg/dL) (75-99) mg/dL AST (14-36) U/L Alkaline Phosphatase (38-126) U/L Total Protein (6.3-8.2) g/dL Albumin (3.5-5.0) g/dL Urine Ketones 1+ H (Negative) Urine Bacteria Rare H (None) /hpf Urine Mucus Rare H (None) /hpf - Imaging and Cardiology Chest x-ray: report reviewed, image reviewed Assessment and Plan Assessment: 1. Coronary artery disease with left main disease, status post three-vessel CABG 2. History of hypertension 3. Current ongoing tobacco dependence 4. Mild COPD, preoperative FEV1 was 73% of predicted 5. Daily EtOH use (1 pint per day of liquor) 6. Occasional marijuana and cocaine use (UDS was positive for cocaine on admission) 7. Hepatitis C 8. CVA 20 years ago 9. Solitary kidney. 10. Postoperative acute blood loss anemia and thrombocytopenia, expected 11. Restlessness and agitation, possibly secondary to alcohol withdrawal Plan: 1. Continue aspirin, statin, Plavix, beta briana. Increase metoprolol tartrate as tolerated. 2. Wean O2 as tolerated. Encourage incentive spirometry use 10 times every hour while awake. Bronchodilators per pulmonology. 3. Will increase activity, ambulate as tolerated. PT/OT/cardiac rehab following. 4. Will monitor daily labs and chest x-rays. Electrolyte replacement per protocol. 5. GI/DVT prophylaxis. 6. Pain control current medication regimen. 7. CIWA protocol. Start Precedex drip for goal RASS of -1. 8. Insulin management per primary care services. Patient is not diabetic, preoperative hemoglobin A1c 5.4%. 9. Patient counseled preoperatively and will continue to be counseled throughout her stay that she should refrain from smoking, drinking, using illicit drugs. 10. Stat ABG. 11. Place Young catheter for accurate I's and O's, continue to record strict accurate intake and output. Daily weights. 12. Lasix 40 mg IV 1 now and again at 4 PM today. 13. Potassium chloride 20 mEq by mouth 1 now. 14. Keep atrial and ventricular epicardial pacemaker wires in place and grounded. 15. More recommendations to follow based on patient's clinical course. Time with Patient: Greater than 30
[2021-12-26 10:51] LABS: ABG Base Excess 3.3 mmol/L; ABG HCO3 26 mmol/L (21-25); ABG PCO2 32 mmHg (35-45); ABG PH 7.52 (7.35-7.45); ABG PO2 309 mmHg (83-108); ABG TCO2 27 mmol/L (19-24)
--- NOTE | 2021-12-26 10:57 | XR ---
EXAMINATION TYPE: XR chest 1V portable DATE OF EXAM: 12/26/2021 COMPARISON: 6 . HISTORY: Tube placement TECHNIQUE: Single frontal view of the chest is obtained. FINDINGS: Diffuse interstitial pattern with bilateral infiltrate and pleural effusion. Postoperative change. Left-sided central line seen with the tip overlying the right atrium. No pneumothorax. NGT s een coursing in the upper abdomen likely within the stomach. ET tube somewhat low approximately 1 cm above henrry. IMPRESSION: 1. ET tube 1 cm above henrry correlate clinically. 2. Diffuse pleural-parenchymal changes correlate for CHF or ARDS.
[2021-12-26] MEDS ORDERED: NOREPINEPHRIN 4 MG-0.9% NS PMX 4 MG/250 ML ML IV ONE (11:03)
--- NOTE | 2021-12-26 11:14 | PCN ---
PROCEDURE NOTE PROCEDURE: Placement of a left internal jugular triple-lumen catheter. PREOPERATIVE DIAGNOSIS: 1. Administration of fluids and pressors. 2. Hypotension. 3. Sepsis. 4. Respiratory failure. 5. Delirium tremens. POSTOPERATIVE DIAGNOSIS: 1. Administration of fluids and pressors. 2. Hypotension. 3. Sepsis. 4. Respiratory failure. 5. Delirium tremens. OPERATORS: 1. Dr. Thornton. 2. Dr. Del Rio. PROCEDURE DESCRIPTION: There was informed consent and universal timeout was completed, verifying correct patient, procedure, site, positioning, and implant(s) or special equipment if applicable. The patient was placed in a dependent position appropriate for triple-lumen catheter placement based on the vein to be cannulated. The patient's left neck was prepped and draped in sterile fashion. Lidocaine 1% was used to anesthetize the surrounding skin area. A triple-lumen 9F Cordis catheter was introduced into the internal jugular vein using Seldinger technique via the posterior approach. The catheter was threaded smoothly over the guidewire and appropriate blood return was obtained. There was good blood return from all three ports. Each lumen of the catheter was evacuated of air and flushed with sterile saline. The tip of the catheter was seen in the junction of the superior vena cava and right atrium. The catheter was then sutured in place to the skin. And a sterile dressing applied. Perfusion to the extremity distal to the point of catheter insertion was checked and found to be adequate. The patient tolerated the procedure well. There was no immediate complication. SECOND PROCEDURE: Emergent intubation. PREOPERATIVE DIAGNOSIS: 1. Impending respiratory failure. 2. Hypoxemia. 3. Delirium tremens. POSTOPERATIVE DIAGNOSIS: 1. Impending respiratory failure. 2. Hypoxemia. 3. Delirium tremens. OPERATORS: 1. Dr. Thornton. 2. Dr. Del Rio. PROCEDURE DESCRIPTION: There was informed consent and universal timeout. The patient was sedated with 5 mg of morphine and 2 mg of Ativan. Prior to intubation, the patient received 3 mL of succinylcholine. Once the patient was adequately sedated and paralyzed, the patient was intubated using a standard laryngoscope and a #3 McIntosch blade. The tube was seen to pass through the glottic opening. There was no complication. There was good color change on the CO2 monitor. Oxygenation improved appropriately on bagging. There were good bilateral breath sounds. The tube was secured. A chest x-ray was ordered to check placement. There was no immediate complication. The patient's saturations improved post intubation. MMAIDE / MARLONN: [id number] / MTDD
[2021-12-26] MEDS ORDERED: LACTATED RINGERS 1,000 ML IV ONE (11:15)
--- NOTE | 2021-12-26 11:18 | PCN ---
PROCEDURE NOTE PROCEDURE: Placement of right radial arterial line. PREOPERATIVE DIAGNOSIS: Frequent blood draws and blood gas monitoring. POSTOPERATIVE DIAGNOSIS: Frequent blood draws and blood gas monitoring. OPERATORS: 1. Dr. Thornton. 2. Dr. Del Rio. PROCEDURE DESCRIPTION: There was informed consent and universal timeout was completed, verifying correct patient, procedure, site, positioning, and implant(s) or special equipment if applicable. Rl's test was performed to ensure adequate perfusion. The patient's right wrist was prepped and draped in sterile fashion. Lidocaine 1% was used to anesthetize the area. An 18G Arrow arterial line was introduced into the right radial artery. The catheter was threaded over the guidewire and the needle was removed with appropriate pulsatile blood return. There was good blood return and waveform. Blood loss was minimal. The catheter was then sutured in place to the skin and a sterile dressing was applied by the nurse. Perfusion to the extremity distal to the point of catheter insertion was checked and found to be adequate. The patient tolerated the procedure well and there was no immediate complication. MMODL / IJN: [id number] /
[2021-12-26 11:24] LABS: Glucose,Whole Blood 153 mg/dL (75-99)
--- NOTE | 2021-12-26 11:25 | PCN ---
PROCEDURE NOTE PROCEDURE: Placement of right femoral arterial line. PREOPERATIVE DIAGNOSIS: Frequent blood draws and blood gas monitoring. POSTOPERATIVE DIAGNOSIS: Frequent blood draws and blood gas monitoring. OPERATORS: 1. Dr. Thornton. 2. Dr. Del Rio. PROCEDURE DESCRIPTION: There was informed consent and universal timeout was completed, verifying correct patient, procedure, site, positioning, and implant(s) or special equipment if applicable. Rl's test was performed to ensure adequate perfusion. The patient's right groin was prepped and draped in sterile fashion. Lidocaine 1% was used to anesthetize the area. An 18G Arrow arterial line was introduced into the right femoral artery. The catheter was threaded over the guidewire and the needle was removed with appropriate pulsatile blood return. There was good blood return and waveform. Blood loss was minimal. The catheter was then sutured in place to the skin and a sterile dressing was applied by the nurse. Perfusion to the extremity distal to the point of catheter insertion was checked and found to be adequate. The patient tolerated the procedure well and there was no immediate complication. MMODL / IJN: [id number] /
--- NOTE | 2021-12-26 12:32 | P.PN ---
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 Patient is sitting up in the chair. Complaining of not feeling well and claims that she could not sleep well. She has history of alcohol and cocaine abuse. Hemodynamically seems to be stable. Her blood pressure is running borderline high. The dose of the beta briana was increased. She is also on amlodipine. No arrhythmias are detected. Overall , She seemed to be stable from cardiac standpoint. Increase activity as tolerated. Incentive spirometry. 12/26/2021: This patient is status post bypass surgery. Seemed to be more agitated from alcohol withdrawal and also appears to been dissipated distress. Chest x-ray showed congestive/ARDS findings. Patient is intubated by pulmonary. Patient is in sinus tachycardia with frequent PVCs. Patient also having arterial lines. Continue current management. We'll follow Objective - Vital Signs Vital signs: Vital Signs Temp 97.4 F L 12/26/21 12:00 Pulse 75 12/26/21 12:11 Resp 20 12/26/21 12:00 BP 86/57 12/26/21 12:00 Pulse Ox 100 12/26/21 12:00 FiO2 40 12/26/21 12:06 Intake & Output 12/25/21 12/26/21 12/26/21 18:59 06:59 18:59 Intake Total 497 1405.70 Output Total 1725 850 450 Balance -1228 -850 955.70 Weight 76 kg Intake: IV 497 1400 Lactated Ringers 270 Lactated Ringers 1,000 ml 1000 @ 999 mls/hr IV .Q1H1M [facility] Rx#:[id number] Magnesium Sulfate-D5w Pmx 200 1 gm In Dextrose/Water 1 100ml.bag @ 100 mls/hr IVPB Q1H [facility] Rx#: [id number] Magnesium Sulfate-D5w Pmx 100 1 gm In Dextrose/Water 1 100ml.bag @ 100 mls/hr IVPB Q1H [facility] Rx#: [id number] Magnesium Sulfate-D5w Pmx 100 1 gm In Dextrose/Water 1 100ml.bag @ 100 mls/hr IVPB Q1H [facility] Rx#: [id number] Potassium Chloride 10 meq 200 In Water For Injection 1 100ml.bag @ 100 mls/hr IVPB Q1H [facility] Rx#: [id number] Pressure Bag (0.9 Sodium 27 Chloride) Intake, IV Titration 5.70 Amount Dexmedetomidine/0.9% NaCl 0.57 (Pmx) 400 mcg In Empty Bag 1 bag @ 0.2 MCG/KG/HR 3.8 mls/hr IV .Q24H [facility] Rx#:[id number] propofoL 1,000 mg In 5.13 Empty Bag 1 bag @ 5 MCG/ KG/MIN 2.28 mls/hr IV . Q24H [facility] Rx#:[id number] Output: Urine 1725 850 450 Other: Voiding Method External Catheter External Catheter # Voids 0 0 0 ABP, PAP, CO, CI - Last Documented Arterial Blood Pressure 111/48 Pulmonary Artery Pressure 34/8 Cardiac Output 4.8 Cardiac Index 2.7 - Exam GENERAL EXAM: Patient is confused and agitated seem to be having withdrawal symptoms HEENT: Normocephalic. NECK: No masses, no nuchal rigidity. CHEST: Postsurgical LUNGS: Scattered rhonchi and wheezing HEART: S1 and S2 normal ABDOMEN: No hepatosplenomegaly, normal bowel sounds, no guarding or rigidity. SKIN: No rashes CENTRAL NERVOUS SYSTEM: Agitated and confused EXTREMITIES: No cyanosis, clubbing or edema. - Labs CBC & Chem 7: 12/26/21 05:41 12/26/21 05:41 Labs: Abnormal Lab Results - Last 24 Hours (Table) 12/25/21 12/25/21 12/26/21 Range/Units 16:26 20:03 05:41 RBC (3.80-5.40) m/uL Hgb (11.4-16.0) gm/dL Hct (34.0-46.0) % Lymphocytes # (1.0-4.8) k/uL ABG pH (7.35-7.45) ABG pCO2 (35-45) mmHg ABG pO2 (83-108) mmHg ABG HCO3 (21-25) mmol/L ABG Total CO2 (19-24) mmol/L ABG O2 Saturation (94-97) % Sodium 133 L (137-145) mmol/L POC Glucose (mg/dL) 106 H 104 H (75-99) mg/dL AST 41 H (14-36) U/L Alkaline Phosphatase 27 L (38-126) U/L Total Protein 5.1 L (6.3-8.2) g/dL Albumin 2.7 L (3.5-5.0) g/dL Urine Ketones (Negative) Urine Bacteria (None) /hpf Urine Mucus (None) /hpf 12/26/21 12/26/21 12/26/21 Range/Units 05:41 06:54 07:50 RBC 2.68 L (3.80-5.40) m/uL Hgb 7.5 L (11.4-16.0) gm/dL Hct 23.7 L (34.0-46.0) % Lymphocytes # 0.9 L (1.0-4.8) k/uL ABG pH 7.48 H (7.35-7.45) ABG pCO2 34 L (35-45) mmHg ABG pO2 66 L (83-108) mmHg ABG HCO3 (21-25) mmol/L ABG Total CO2 26 H (19-24) mmol/L ABG O2 Saturation (94-97) % Sodium (137-145) mmol/L POC Glucose (mg/dL) 137 H (75-99) mg/dL AST (14-36) U/L Alkaline Phosphatase (38-126) U/L Total Protein (6.3-8.2) g/dL Albumin (3.5-5.0) g/dL Urine Ketones (Negative) Urine Bacteria (None) /hpf Urine Mucus (None) /hpf 12/26/21 12/26/21 12/26/21 Range/Units 09:07 10:49 11:22 RBC (3.80-5.40) m/uL Hgb (11.4-16.0) gm/dL Hct (34.0-46.0) % Lymphocytes # (1.0-4.8) k/uL ABG pH 7.52 H (7.35-7.45) ABG pCO2 32 L (35-45) mmHg ABG pO2 309 H (83-108) mmHg ABG HCO3 26 H (21-25) mmol/L ABG Total CO2 27 H (19-24) mmol/L ABG O2 Saturation 100.0 H (94-97) % Sodium (137-145) mmol/L POC Glucose (mg/dL) 153 H (75-99) mg/dL AST (14-36) U/L Alkaline Phosphatase (38-126) U/L Total Protein (6.3-8.2) g/dL Albumin (3.5-5.0) g/dL Urine Ketones 1+ H (Negative) Urine Bacteria Rare H (None) /hpf Urine Mucus Rare H (None) /hpf Assessment and Plan (1) Status post aorto-coronary artery bypass graft Current Visit: Yes Status: Acute Code(s): Z95.1 - PRESENCE OF AORTOCORONARY BYPASS GRAFT SNOMED Code(s): 707789687 (2) CAD (coronary artery disease) Current Visit: Yes Status: Acute Code(s): I25.10 - ATHSCL HEART DISEASE OF [place] CORONARY ARTERY W/O ANG PCTRS SNOMED Code(s): 87954666 (3) History of alcohol use Current Visit: Yes Status: Acute Code(s): Z87.898 - PERSONAL HISTORY OF OTHER SPECIFIED CONDITIONS SNOMED Code(s): 324491713 Plan: Patient developed delirium tremens and also some respiratory difficulties requiring intubation and sedation. Continue current management. Maintaining sinus rhythm. We'll follow
--- NOTE | 2021-12-26 12:44 | P.PN ---
Subjective Progress Note Date: 12/26/21 This is a 66-year-old -[place] female patient of Dr. Allan with past medical history of hypertension, hyperlipidemia, CVA, single kidney with right nephrectomy, history of hepatitis C, COPD, current tobacco dependence, depression, daily EtOH use, occasional marijuana and cocaine use. Patient had recently been complaining of chest pain and shortness of breath for 2 months, she was seen by cardiology, she follows with Dr. Hutchison, she underwent stress testing which was abnormal and subsequently she had a heart catheterization that demonstrated 85% left main disease, totally occluded RCA with collateral from the left side, proximal LAD stenosis of 95%, mid LAD stenosis of a 50% with distal LAD stenosis of 70%, and circumflex with mild disease of 30-40%. Due to these findings patient was referred to cardiothoracic surgery for surgical revascularization. Transthoracic echocardiogram from 12/09/2021 showed preserved LV function with ejection fraction of 55-60%, mildly increased septal wall thickness and posterior wall thickness. There was mild mitral regurg, aortic valve was structurally normal without significant sclerosis or stenosis or aortic regurgitation, pulmonary artery systolic pressure was normal, there was trace tricuspid regurg. Bedside PFT showed FEV1 of 1.68 L or 73% of predicted, FVC of 2.04, or 68% of predicted, and FEV1 to FEC ratio of 107%, MCV of 63, and this was consistent with mild restrictive pulmonary physiology. Today on 12/21/2021 patient presented to the hospital, and underwent three- vessel coronary artery bypass surgery with DE LA CRUZ to the LAD, SVG to the OM, SVG to the PDA,, left atrial appendage exclusion with 35 mm Atriclip, intraoperative CHAD, and appendectomy aortic scanning. Patient has known history of substance abuse, and her urine drug screen the day of surgery on 12/21/2021 was positive for benzodiazepines and cocaine. We seen the patient in the postoperative period in the ICU, patient is still sedated and intubated, on assist-control mode with a rate of 12, tidal lamberts 400, FiO2 of 100% and PEEP of 5, postoperative blood gas shows pO2 156, pCO2 51, and pH of 7.30 and this was done on the above-mentioned ventilator settings and FiO2 had since been dropped down to 80%. Chest x-ray showing ET tube 2 cm above the henrry, right internal jugular [place] in place, bilateral pleural and mediastinal chest tubes in place. No pneumothorax. Patient is in sinus mechanism with a rate of 71, blood pressure is 148/63, PA pressures 33/16, CVP 7-8, cardiac output is 3.6, and cardiac index is 2.0. With SVR of 1400. Currently patient is on lactated Ringer's at 50 ML per hour, insulin is at 0.5 units per hour, nitroglycerin is up 5 mics per kilo per minute, and milrinone is at 0.3 mics per kilo per minute. Right and left pleural chest tubes connected together, and mediastinal chest tube with minimal sanguinous output. No air leak noted. Young catheter is in place, patient is producing 50-65 ML per hour. On 12/22/2021 patient seen in follow-up in intensive care unit, she is waking up, she remains intubated on mechanical ventilator, on assist-control with a rate of 12, tidal volume was 400, FiO2 of 60% and PEEP of 5. This point his blood gas showed pO2 of 68, pCO2 of 43, and pH of 7.39, and this was done on those above-mentioned ventilator settings, patient has since been placed on pressure support of 5 and CPAP of 5 with FiO2 of 50%. She is doing good, she is opening eyes to voice, follows simple commands, appears to be in no acute distress, hemodynamically she is been stable, she is in sinus mechanism with a rate of 90 BPM, she remains on small amount of milrinone at 0.1 cameron per kilo per minute, she is on lactated Ringer's at 50 ML per hour, norepinephrine at 0.08 units per kilo per minute, Cleviprex and nitroglycerin infusions have been discontinued. Today's chest x-ray has been reviewed showing scattered bibasilar infiltrates likely related to atelectasis. PA pressure is 36/17, CVP is 9, cardiac output is 4.8, and cardiac index is 2.7. This morning's labs have been reviewed showing globin of 5.9, white blood cell count of 6.4, platelet count of 99, sodium is 138, potassium is 4.2, chloride is 108, BUN is 15, creatinine is 1.05. Patient was transfused with 1 unit of packed red blood cells, repeat labs from this morning show hemoglobin if 6.6, and patient will receive another unit of packed red blood cells. Patient has a mediastinal chest tube in place and 1 left pleural and one right pleural white connected together, and pleural chest tubes put out 650 mL of serosanguineous output in the last 24 hours, and there is been 300 mL of serous and was output from the mediastinal chest tube. Remains on cefazolin for prophylactic antibiotic coverage. Patient has been started on aspirin, Lipitor, Plavix, she is on subcu heparin, metoprolol 12.5 mg twice daily, Protonix for GI prophylaxis. She is on Ativan per CIWA protocol, and thiamine replacements. Patient's weaning parameters and blood gas following spontaneous breathing trials were satisfactory, and spontaneous tidal volumes were 375, respiratory rate was 20, minute ventilation was 7.35 L/m, R SBI was 60, and this was -25, and we were unable to obtain vital. Blood gas was satisfactory with pO2 of 112, pCO2 44, and pH of 7.38 on pressure-support of 5 and CPAP of 5 and FiO2 of 50%. Patient looks comfortable, and she had a positive cuff week as well. She was extubated and tolerating extubation well. Midsternal incision is clean dry and intact, chest tube sites are clean dry and intact, left leg and the right leg Tad wrap. On 12/23/2021 patient seen in follow-up in intensive care unit, today is postoperative day #2, status post three-vessel coronary artery bypass grafting. She was successfully weaned and extubated yesterday on 12/22/2021, however in the evening she developed respiratory difficulty, hypoxia and required to go on BiPAP support with pressures of 12 and 5 and FiO2 of 100%, which was then weaned down to 50%. Her chest x-ray at 1720 last night showed bilateral chest tubes without evidence of pneumothorax, layering bilateral pleural effusions with associated subsegmental atelectasis, and coronary vascular congestion with cardiomegaly. Patient received one-time dose of IV Lasix she has produced 2.9 L in the urine output over the last 24 hours, however still remains in positive fluid balance of 769 mL over last 24 hours, her right and left pleural chest tubes have been by CT surgery last night, and right-sided pleural chest tube has put out 400 mL of bright red blood overnight, left pleural chest tube only put out 25 mL, and mediastinal chest tube 150 the last 24 hours. Patient received 3 units of packed red blood cells yesterday, his labs have been reviewed, hemoglobin is 8.2, white count is 11.1, platelet count is 75. Sodium is 138, potassium 3.8, chloride is 109, BUN is 13, creatinine 0.84. Hemodynamically patient is improved, her norepinephrine drip has been off since yesterday afternoon, milrinone drip has been discontinued this morning, she remains on Vicodin Ringer's at 50 ML per hour, and insulin at 2 units per hour, she is currently awake and alert, she is on 15 L per high flow nasal cannula, sitting up in a recliner, her incentive spirometer effort is suboptimal, patient is achieving about 500 to sometimes 700 mL on the incentive spirometer, lung sounds are diminished, poor inspiratory effort, there are scattered diffuse crackles throughout. Today's chest x-ray shows continued bilateral patchy opacities throughout both but improving aeration in the lower lungs, bilateral pleural chest tubes in place, no appreciable pneumothorax. PA pressure is 35/13, CVP is 7, cardiac output is 5.4, cardiac index 3.1. Patient states her pain is tolerable, she rates it 7 out of 10, and it is in the anterior sternum incisional area. Patient is tolerating sips of clear liquids. Diet has been ordered for her this morning. The patient is seen today 12/24/2021 in follow-up in the intensive care unit. Postoperative day #3 of the three-vessel coronary artery bypass surgery. She is currently sitting up in a chair at the bedside. Awake and alert in no acute distress. Maintaining O2 saturations in the 90s on 6 L high flow nasal cannula. Bilateral end mediastinal chest tubes remain in place. Chest x-ray reveals no evidence of pneumothorax. Persistent mild cardiomegaly with bilateral multifocal edema/infiltrate. No significant change compared to yesterday. She is pulling only about 500 ML's on her incentive spirometer at this morning. She did not utilize BiPAP last night. She remains on lactated Ringer's at 40 miles per hour. Insulin drip at 1 unit per hour. She is status post 3 units of packed red blood cells this admission. White count 10.6. Hemoglobin 8.1. Platelet count 81,000. Sodium 133. Potassium 4.2. BUN 12. Creatinine 0.69. Glucose 127. AST 56. ALT 13. CVP is 7. Cardiac output 4.8. Cardiac index 2.7. Blood pressure stable. Pacer wires in place. Remains in a -500 ML balance. Continued on DuoNeb inhalations. The patient is seen today 12/25/2021 in follow-up in the intensive care unit. This is postoperative day #4. She is currently resting comfortably in bed. Awake and alert in no acute distress. Chest tubes have been removed. She is maintaining O2 saturations in the 90s on 4 L/m per nasal cannula. Chest lactated Ringer's running at 30 MLS per hour. She is continuing to work with the incentive spirometer. Chest x-ray reveals some mild pulmonary edema. Stable cardiomegaly. No evidence of pneumothorax. She is status post 3 units of packed red blood cells this admission. Current hemoglobin 8.7. Platelets 118. White count 6.3. Sodium 134. Potassium 4.1. Bicarb 22. BUN 12. Creatinine 0.61. Glucose 18. AST 54, ALT 14. Initiated on Arixtra. The patient is seen today 12/26/2021 in follow-up in the intensive care unit. This is postoperative day #5. This morning the patient became quite restless and agitated. Trying to climb out of bed. She required Ativan and Haldol throughout the night. Suspecting alcohol and possible drug withdrawal. She was initiated on Precedex at 0.6 mg/kg per hour. Her oxygen requirements were gradually increasing up to 10 L high flow nasal cannula. Chest x-ray revealed moderate pulmonary vascular congestion and interstitial edema. She was given Lasix 40 mg IVP 1. She was diaphoretic. She was tachypneic with thoracoa bdominal dyssynchrony in her breathing pattern. Blood gases revealed a PaO2 of 66, pCO2 of 34 and a pH of 7.48. She is subsequently required intubation and mechanical ventilatory support at approximately 10 AM. She is currently on assist control mode with tidal volume of 400, respiratory rate of 24, FiO2 100% and a PEEP of 5. Follow-up arterial blood gases revealed a pO2 of 309, pCO2 32 and a PH of 7.52. FiO2 was decreased to 50% and rate was decreased to 20. Left internal jugular triple-lumen catheter and right femoral arterial lines were placed. She is currently on propofol at 20 mcg/kg/m. White count 6.5. Hemoglobin 7.5. Platelets 161. Sodium 133. Potassium 3.6. Chloride 103. BUN 11. Creatinine 0.63. Glucose 153. AST 41. ALT 14. She is currently in a -2 L balance. She remains hemodynamically stable. Objective - Vital Signs Vital signs: Vital Signs Temp 97.4 F L 12/26/21 12:00 Pulse 75 12/26/21 12:11 Resp 20 12/26/21 12:00 BP 86/57 12/26/21 12:00 Pulse Ox 100 12/26/21 12:00 FiO2 40 12/26/21 12:06 Intake & Output 12/25/21 12/26/21 12/26/21 18:59 06:59 18:59 Intake Total 497 1405.70 Output Total 1725 850 450 Balance -1228 -850 955.70 Weight 76 kg Intake: IV 497 1400 Lactated Ringers 270 Lactated Ringers 1,000 ml 1000 @ 999 mls/hr IV .Q1H1M [facility] Rx#:[id number] Magnesium Sulfate-D5w Pmx 200 1 gm In Dextrose/Water 1 100ml.bag @ 100 mls/hr IVPB Q1H [facility] Rx#: [id number] Magnesium Sulfate-D5w Pmx 100 1 gm In Dextrose/Water 1 100ml.bag @ 100 mls/hr IVPB Q1H [facility] Rx#: [id number] Magnesium Sulfate-D5w Pmx 100 1 gm In Dextrose/Water 1 100ml.bag @ 100 mls/hr IVPB Q1H [facility] Rx#: [id number] Potassium Chloride 10 meq 200 In Water For Injection 1 100ml.bag @ 100 mls/hr IVPB Q1H [facility] Rx#: [id number] Pressure Bag (0.9 Sodium 27 Chloride) Intake, IV Titration 5.70 Amount Dexmedetomidine/0.9% NaCl 0.57 (Pmx) 400 mcg In Empty Bag 1 bag @ 0.2 MCG/KG/HR 3.8 mls/hr IV .Q24H [facility] Rx#:[id number] propofoL 1,000 mg In 5.13 Empty Bag 1 bag @ 5 MCG/ KG/MIN 2.28 mls/hr IV . Q24H [facility] Rx#:[id number] Output: Urine 1725 850 450 Other: Voiding Method External Catheter External Catheter # Voids 0 0 0 ABP, PAP, CO, CI - Last Documented Arterial Blood Pressure 111/48 Pulmonary Artery Pressure 34/8 Cardiac Output 4.8 Cardiac Index 2.7 - Exam GENERAL EXAM: Intubated, sedated 66-year-old female patient, comfortable in no apparent distress. HEAD: Normocephalic/atraumatic. EYES: Normal reaction of pupils, equal size. Conjunctiva pink, sclera white. NOSE: Clear with pink turbinates. THROAT: No erythema or exudates. NECK: No masses, no JVD, no thyroid enlargement, no adenopathy. Left internal jugular triple-lumen catheter in place. CHEST: Heart hugger in place Symmetrical expansion. Midsternal incision is clean dry and intact, chest tubes removed LUNGS: Equal air entry with no crackles, wheeze, rhonchi or dullness. CVS: Regular rate and rhythm, normal S1 and S2, no gallops, no murmurs, no rubs ABDOMEN: Soft, nontender. No hepatosplenomegaly, normal bowel sounds, no guarding or rigidity. EXTREMITIES: Right femoral arterial line in place. No clubbing, no edema, no cyanosis, 2+ pulses and upper and lower extremities. MUSCULOSKELETAL: Muscle strength and tone normal. SPINE: No scoliosis or deformity SKIN: No rashes, left leg interrupted incision covered with Tad wrap - Labs CBC & Chem 7: 12/26/21 05:41 12/26/21 05:41 Labs: Abnormal Lab Results - Last 24 Hours (Table) 12/25/21 12/25/21 12/26/21 Range/Units 16:26 20:03 05:41 RBC (3.80-5.40) m/uL Hgb (11.4-16.0) gm/dL Hct (34.0-46.0) % Lymphocytes # (1.0-4.8) k/uL ABG pH (7.35-7.45) ABG pCO2 (35-45) mmHg ABG pO2 (83-108) mmHg ABG HCO3 (21-25) mmol/L ABG Total CO2 (19-24) mmol/L ABG O2 Saturation (94-97) % Sodium 133 L (137-145) mmol/L POC Glucose (mg/dL) 106 H 104 H (75-99) mg/dL AST 41 H (14-36) U/L Alkaline Phosphatase 27 L (38-126) U/L Total Protein 5.1 L (6.3-8.2) g/dL Albumin 2.7 L (3.5-5.0) g/dL Urine Ketones (Negative) Urine Bacteria (None) /hpf Urine Mucus (None) /hpf 12/26/21 12/26/21 12/26/21 Range/Units 05:41 06:54 07:50 RBC 2.68 L (3.80-5.40) m/uL Hgb 7.5 L (11.4-16.0) gm/dL Hct 23.7 L (34.0-46.0) % Lymphocytes # 0.9 L (1.0-4.8) k/uL ABG pH 7.48 H (7.35-7.45) ABG pCO2 34 L (35-45) mmHg ABG pO2 66 L (83-108) mmHg ABG HCO3 (21-25) mmol/L ABG Total CO2 26 H (19-24) mmol/L ABG O2 Saturation (94-97) % Sodium (137-145) mmol/L POC Glucose (mg/dL) 137 H (75-99) mg/dL AST (14-36) U/L Alkaline Phosphatase (38-126) U/L Total Protein (6.3-8.2) g/dL Albumin (3.5-5.0) g/dL Urine Ketones (Negative) Urine Bacteria (None) /hpf Urine Mucus (None) /hpf 12/26/21 12/26/21 12/26/21 Range/Units 09:07 10:49 11:22 RBC (3.80-5.40) m/uL Hgb (11.4-16.0) gm/dL Hct (34.0-46.0) % Lymphocytes # (1.0-4.8) k/uL ABG pH 7.52 H (7.35-7.45) ABG pCO2 32 L (35-45) mmHg ABG pO2 309 H (83-108) mmHg ABG HCO3 26 H (21-25) mmol/L ABG Total CO2 27 H (19-24) mmol/L ABG O2 Saturation 100.0 H (94-97) % Sodium (137-145) mmol/L POC Glucose (mg/dL) 153 H (75-99) mg/dL AST (14-36) U/L Alkaline Phosphatase (38-126) U/L Total Protein (6.3-8.2) g/dL Albumin (3.5-5.0) g/dL Urine Ketones 1+ H (Negative) Urine Bacteria Rare H (None) /hpf Urine Mucus Rare H (None) /hpf Assessment and Plan Assessment: 1 Symptomatic multivessel coronary artery disease, status post three-vessel coronary artery bypass grafting with DE LA CRUZ to LAD, SVG to the OM, SVG to the PDA, left atrial appendage exclusion with 35 mm Atriclip on 12/21/2021 2 Routine postoperative ventilator management, patient was successfully weaned and extubated on 12/22/2021. However, on 12/26/2021 the patient developed suspected acute alcohol/drug withdrawal and thoracoabdominal dyssynchrony breathing pattern requiring reintubation and placed back on mechanical ventilator. 3 Acute blood loss anemia, an expected outcome of sternotomy, and bypass surgery, requiring transfusion with blood products, patient has received 3 units of packed red blood cells, current hemoglobin 8.7 4 History of substance abuse including cocaine, EtOH, and marijuana. Urine drug screen on the day of surgery on 12/21/2021 is positive for cocaine and benzodiazepines 5 History of single kidney, with history of nephrectomy 6 Chronic and ongoing tobacco dependence 7 History of CVA 8 Hypertension 9 Hyperlipidemia 10 History of COPD 11 Depression 12 History of hepatitis C Plan: The patient was seen and evaluated Chest x-ray, ABGs, labs and medications reviewed The patient appeared to be having alcohol/drug withdrawal She developed thoracoabdominal dyssynchrony breathing pattern Reintubated and placed back on mechanical ventilator for airway protection Sedated on propofol currently at 20 mcg/kg/m Titrate down the FiO2 as tolerated Continue bronchodilators Left IJ triple lumen catheter placed, right femoral arterial line placed Her family had been notified We'll continue to follow and make further recommendations based on her clinical status I have personally seen and examined the patient, performed the documentation and the assessment and plan as written. Number of minutes spent on the visit: 15. Not including procedures.
[2021-12-26 13:44] LABS: Glucose,Whole Blood 136 mg/dL (75-99)
[2021-12-26 17:27] LABS: Glucose,Whole Blood 108 mg/dL (75-99)
[2021-12-26] MEDS: CHLORHEXIDINE GLUCONATE 15 ML CUP MUCOUS MEM SCH (21:03)
[2021-12-26] MEDS: SENNOSIDES-DOCUSATE SODIUM 1 EACH TAB PO SCH (21:03)
[2021-12-26 23:59] LABS: Glucose,Whole Blood 128 mg/dL (75-99)
[2021-12-27] MEDS: IPRATROPIUM-ALBUTEROL 3 ML NEB INHALATION SCH ×6 (00:48→19:58)
[2021-12-27] MEDS: INSULIN ASPART (NovoLOG) 100 UNIT/ML VIAL SQ SCH ×4 (00:49→18:12)
[2021-12-27] MEDS: ACETAMINOPHEN TAB 325 MG TAB PO PRN (01:45)
[2021-12-27] MEDS ORDERED: hydrALAZINE HCL 20 MG/ML 1 ML VIAL IVP PRN (03:51)
[2021-12-27 05:22] LABS: HCT 23.7 % (34.0-46.0); HGB 7.5 gm/dL (11.4-16.0); Hypochromasia Slight; MCH 27.7 pg (25.0-35.0); MCHC 31.7 g/dL (31.0-37.0); MCV 87.4 fL (80.0-100.0); Mean Platelet Volume 9.9; Platelet Count 247 k/uL (150-450); Poikilocytosis Slight; RBC 2.71 m/uL (3.80-5.40); RDW 15.9 % (11.5-15.5)
[2021-12-27 05:24] LABS: ALT 14 U/L (4-34); AST 39 U/L (14-36); African American GFR (CKD) >90 (>60 ml/min/1.73 sqM); Albumin 2.8 g/dL (3.5-5.0); Alkaline Phosphatase 31 U/L (38-126); Anion Gap 6 mmol/L; Blood Urea Nitrogen 10 mg/dL (7-17); Calcium 8.2 mg/dL (8.4-10.2); Carbon Dioxide 27 mmol/L (22-30); Chloride 102 mmol/L (98-107); Glucose 107 mg/dL (74-99); Magnesium 1.8 mg/dL (1.6-2.3); Non-African American GFR(CKD) >90 (>60 ml/min/1.73 sqM); Potassium 3.2 mmol/L (3.5-5.1); Sodium 135 mmol/L (137-145); Total Bilirubin 0.7 mg/dL (0.2-1.3); Total Protein 5.2 g/dL (6.3-8.2)
[2021-12-27 05:51] LABS: Glucose,Whole Blood 115 mg/dL (75-99)
[2021-12-27 06:04] LABS: ABG Base Excess 1.2 mmol/L; ABG HCO3 25 mmol/L (21-25); ABG Oxygen Saturation 97.4 % (94-97); ABG PCO2 33 mmHg (35-45); ABG PH 7.48 (7.35-7.45); ABG PO2 87 mmHg (83-108); ABG TCO2 26 mmol/L (19-24); Allen Test Performed? Yes
[2021-12-27] MEDS: POTASSIUM BICARBONATE/CIT AC 20 MEQ TABLET.EFF NG-TUBE SCH ×2 (06:10→06:46)
[2021-12-27] MEDS: MAGNESIUM SULFATE-D5W PMX 1 GM in DEXTROSE/WATER 1 100ML.BAG IVPB SCH ×2 (06:10→08:17)
[2021-12-27] MEDS: THIAMINE 100 MG TAB PO SCH ×2 (06:11→18:17)
[2021-12-27 06:17] LABS: Band Neutrophils % 1 %; Neutrophils % (M) 70 %; Nucleated Red Blood Cells 2 /100 WBC (0-0); Total Cells Counted 100
[2021-12-27 06:18] LABS: Anisocytosis (M) Present; Hypochromasia (M) Present; Lymphocytes # (M) 1.62 k/uL (1.0-4.8); Monocytes # (M) 0.99 k/uL (0-1.0); Poikilocytosis (M) Present; Polychromasia Present
[2021-12-27] MEDS: CHLORHEXIDINE GLUCONATE 15 ML CUP MUCOUS MEM SCH ×2 (08:17→20:01)
[2021-12-27] MEDS: ASPIRIN 81 MG PO SCH (08:18)
[2021-12-27] MEDS: ATORVASTATIN 40 MG TAB PO SCH (08:18)
[2021-12-27] MEDS: FLUoxetine HCL 20 MG CAP PO SCH (08:18)
[2021-12-27] MEDS: CLOPIDOGREL 75 MG TAB PO SCH (08:18)
[2021-12-27] MEDS: PANTOPRAZOLE 40 MG/10 ML VIAL IVP SCH (08:18)
[2021-12-27] MEDS: MULTIVITAMINS, THERA 1 EACH TAB PO SCH (08:18)
[2021-12-27] MEDS: METOPROLOL TARTRATE 50 MG TAB PO SCH ×2 (08:18→20:01)
[2021-12-27] MEDS: FONDAPARINUX 2.5 MG/0.5 ML SYRINGE SQ SCH (08:19)
--- NOTE | 2021-12-27 08:21 | XR ---
EXAMINATION TYPE: XR chest 1V portable DATE OF EXAM: 12/27/2021 COMPARISON: X-ray dated 12/26/2021 HISTORY: Tube placement TECHNIQUE: Single frontal view of the chest is obtained. FINDINGS: The tip of the endotracheal tube is about 2.2 cm proximal to the henrry. NG tube is seen with the tip is inferior to the diaphragm. Left-sided subclavian line with the tip is likely within the right atr ium. Again noted is the sternotomy wire sutures and the left atrial appendage clip. Slightly more prominen t patchy opacity at the lateral aspect of the left mid and lower lung zones. Apparent cardiomegaly. Cardiomediastinal shift to the left side, stable. No progressive pulmonary con solidation otherwise. Suspected minimal right pleural effusion. The left CP recess is obscured by the cardiac shadow. IMPRESSION: Minimal interval changes as described above.
--- NOTE | 2021-12-27 09:01 | P.PN ---
Subjective Progress Note Date: 12/27/21 Principal diagnosis: Coronary artery disease with left main disease. Previous medical history of hypertension, current tobacco dependence with mild COPD, daily EtOH use (1 pint per day of liquor), occasional marijuana and cocaine use (UDS was positive for cocaine on admission), hepatitis C, CVA 20 years ago, solitary kidney. POD #6 coronary artery bypass grafting 3 vessels, left internal mammary artery to the left anterior descending artery, reverse saphenous vein graft to the obtuse marginal artery, reverse saphenous vein graft to the posterior descending artery, endoscopic harvesting of the left greater saphenous vein, ligation of the left atrial appendage using a 35 mm AtriClip, epi-aortic ultrasound and intraoperative transesophageal echocardiogram Postoperative acute blood loss anemia and thrombocytopenia, expected given hemodilution and cardiopulmonary bypass pump Suspected alcohol/drug withdrawal with thoracoabdominal dyssynchrony breathing pattern, reintubated per Dr. Thornton The patient was seen and examined this morning lying in bed in the intensive care unit mechanically ventilated with propofol for sedation. Apparently Monday she was doing well hemodynamically although left motivation to participate in her care. Yesterday she became very restless and agitated despite IV Ativan and Haldol administration with concern for her breathing. Was felt to be withdrawing from alcohol/drugs and was reintubated per Dr. Thornton. This morning she is in sinus rhythm with heart rate in the high 90s, blood pressure has been steadily increasing, urine output has been adequate, Young placed yesterday. Chest x-ray and lab work were reviewed. Objective - Vital Signs Vital signs: Vital Signs Temp 98.8 F 12/27/21 08:00 Pulse 96 12/27/21 08:29 Resp 22 12/27/21 08:00 BP 168/80 12/27/21 08:00 Pulse Ox 98 12/27/21 08:00 FiO2 40 12/27/21 08:00 Intake & Output 12/26/21 12/27/21 12/27/21 18:59 06:59 18:59 Intake Total 1610.162 419.006 46 Output Total 1330 1030 80 Balance 280.162 -610.994 -34 Weight 76.4 kg Intake: IV 1538 253 46 0.9 @ 20 220 40 Lactated Ringers 1,000 ml 1000 @ 999 mls/hr IV .Q1H1M [facility] Rx#:[id number] Magnesium Sulfate-D5w Pmx 100 1 gm In Dextrose/Water 1 100ml.bag @ 100 mls/hr IVPB Q1H [facility] Rx#: [id number] Magnesium Sulfate-D5w Pmx 100 1 gm In Dextrose/Water 1 100ml.bag @ 100 mls/hr IVPB Q1H [facility] Rx#: [id number] Potassium Chloride 10 meq 200 In Water For Injection 1 100ml.bag @ 100 mls/hr IVPB Q1H [facility] Rx#: [id number] Pressure Bag 18 33 6 Sodium Chloride 0.9% 1, 120 000 ml @ 20 mls/hr IV . Q24H [facility] Rx#:[id number] Intake, IV Titration 72.162 166.006 Amount Dexmedetomidine/0.9% NaCl 0.57 (Pmx) 400 mcg In Empty Bag 1 bag @ 0.2 MCG/KG/HR 3.8 mls/hr IV .Q24H [facility] Rx#:[id number] propofoL 1,000 mg In 71.592 166.006 Empty Bag 1 bag @ 5 MCG/ KG/MIN 2.28 mls/hr IV . Q24H [facility] Rx#:[id number] Output: Urine 1330 1030 80 Other: Voiding Method Indwelling Catheter Indwelling Catheter # Voids 0 ABP, PAP, CO, CI - Last Documented Arterial Blood Pressure 157/70 Pulmonary Artery Pressure 34/8 Cardiac Output 4.8 Cardiac Index 2.7 - Exam CONSTITUTIONAL: Sedated with propofol on mechanical ventilation, still very twitchy and reaching for ET tube per nursing RESPIRATORY: Lungs sounds diminished bilaterally. Respirations even, nonlabored. Current ventilator settings FiO2 40%, tidal volume 400, respiratory rate 20, PEEP 5. 8.0 ET tube present, 23 at the lip CARDIOVASCULAR: S1, S2 present. Regular rate and rhythm, sinus rhythm on telemetry. Sternum stable. Palpable peripheral pulses bilaterally. No edema present. No calf pain or tenderness noted. Heart hugger, antiembolism stockings, SCDs present. GASTROINTESTINAL: Abdomen soft, nontender, nondistended. Active bowel sounds present 4 quadrants. OG tube present to low intermittent suction GENITOURINARY: Young present draining clear, yellow urine. Output overnight 30-100 mL per hour, 2360 mL in the last 24 hours INTEGUMENTARY: Skin is warm and dry with evidence of good perfusion. Anterior chest incision well approximated and covered with dry intact dressing. Left lower extremity EVH site well approximated without redness or drainage. NEUROLOGIC: Cranial nerves II through XII intact INVASIVE LINES AND TUBES: A/V epicardial pacemaker wires present, round. Left internal jugular triple-lumen central line, right femoral arterial line present - Allied health notes Allied health notes reviewed: nursing - Labs CBC & Chem 7: 12/27/21 04:57 12/27/21 04:57 Labs: Abnormal Lab Results - Last 24 Hours (Table) 12/26/21 12/26/21 12/26/21 Range/Units 09:07 10:49 11:22 RBC (3.80-5.40) m/uL Hgb (11.4-16.0) gm/dL Hct (34.0-46.0) % RDW (11.5-15.5) % Nucleated RBCs (0-0) /100 WBC ABG pH 7.52 H (7.35-7.45) ABG pCO2 32 L (35-45) mmHg ABG pO2 309 H (83-108) mmHg ABG HCO3 26 H (21-25) mmol/L ABG Total CO2 27 H (19-24) mmol/L ABG O2 Saturation 100.0 H (94-97) % Sodium (137-145) mmol/L Potassium (3.5-5.1) mmol/L Glucose (74-99) mg/dL POC Glucose (mg/dL) 153 H (75-99) mg/dL Calcium (8.4-10.2) mg/dL AST (14-36) U/L Alkaline Phosphatase (38-126) U/L Total Protein (6.3-8.2) g/dL Albumin (3.5-5.0) g/dL Urine Ketones 1+ H (Negative) Urine Bacteria Rare H (None) /hpf Urine Mucus Rare H (None) /hpf 12/26/21 12/26/21 12/26/21 Range/Units 13:43 17:26 23:58 RBC (3.80-5.40) m/uL Hgb (11.4-16.0) gm/dL Hct (34.0-46.0) % RDW (11.5-15.5) % Nucleated RBCs (0-0) /100 WBC ABG pH (7.35-7.45) ABG pCO2 (35-45) mmHg ABG pO2 (83-108) mmHg ABG HCO3 (21-25) mmol/L ABG Total CO2 (19-24) mmol/L ABG O2 Saturation (94-97) % Sodium (137-145) mmol/L Potassium (3.5-5.1) mmol/L Glucose (74-99) mg/dL POC Glucose (mg/dL) 136 H 108 H 128 H (75-99) mg/dL Calcium (8.4-10.2) mg/dL AST (14-36) U/L Alkaline Phosphatase (38-126) U/L Total Protein (6.3-8.2) g/dL Albumin (3.5-5.0) g/dL Urine Ketones (Negative) Urine Bacteria (None) /hpf Urine Mucus (None) /hpf 12/27/21 12/27/21 12/27/21 Range/Units 04:57 04:57 05:38 RBC 2.71 L (3.80-5.40) m/uL Hgb 7.5 L (11.4-16.0) gm/dL Hct 23.7 L (34.0-46.0) % RDW 15.9 H (11.5-15.5) % Nucleated RBCs 2 H (0-0) /100 WBC ABG pH 7.48 H (7.35-7.45) ABG pCO2 33 L (35-45) mmHg ABG pO2 (83-108) mmHg ABG HCO3 (21-25) mmol/L ABG Total CO2 26 H (19-24) mmol/L ABG O2 Saturation 97.4 H (94-97) % Sodium 135 L (137-145) mmol/L Potassium 3.2 L (3.5-5.1) mmol/L Glucose 107 H (74-99) mg/dL POC Glucose (mg/dL) (75-99) mg/dL Calcium 8.2 L (8.4-10.2) mg/dL AST 39 H (14-36) U/L Alkaline Phosphatase 31 L (38-126) U/L Total Protein 5.2 L (6.3-8.2) g/dL Albumin 2.8 L (3.5-5.0) g/dL Urine Ketones (Negative) Urine Bacteria (None) /hpf Urine Mucus (None) /hpf 12/27/21 Range/Units 05:48 RBC (3.80-5.40) m/uL Hgb (11.4-16.0) gm/dL Hct (34.0-46.0) % RDW (11.5-15.5) % Nucleated RBCs (0-0) /100 WBC ABG pH (7.35-7.45) ABG pCO2 (35-45) mmHg ABG pO2 (83-108) mmHg ABG HCO3 (21-25) mmol/L ABG Total CO2 (19-24) mmol/L ABG O2 Saturation (94-97) % Sodium (137-145) mmol/L Potassium (3.5-5.1) mmol/L Glucose (74-99) mg/dL POC Glucose (mg/dL) 115 H (75-99) mg/dL Calcium (8.4-10.2) mg/dL AST (14-36) U/L Alkaline Phosphatase (38-126) U/L Total Protein (6.3-8.2) g/dL Albumin (3.5-5.0) g/dL Urine Ketones (Negative) Urine Bacteria (None) /hpf Urine Mucus (None) /hpf Microbiology - Last 24 Hours (Table) 12/26/21 12:30 Gram Stain - Preliminary Sputum Sputum Culture - Preliminary - Imaging and Cardiology Chest x-ray: report reviewed, image reviewed Assessment and Plan Assessment: 1. Coronary artery disease with left main disease, status post three-vessel CABG 2. History of hypertension, currently hypotensive on levo 3. Current tobacco dependence 4. Mild COPD, preoperative FEV1 was 73% of predicted 5. Daily EtOH use (1 pint per day of liquor) 6. Occasional marijuana and cocaine use (UDS was positive for cocaine on admission) 7. Hepatitis C 8. CVA 20 years ago 9. Solitary kidney. 10. Postoperative acute blood loss anemia and thrombocytopenia, expected 11. Suspected alcohol/drug withdrawal with thoracoabdominal dyssynchrony breathing pattern, reintubated per Dr. Thornton Plan: 1. Continue aspirin, statin, Plavix, beta briana therapy. Will increase beta briana therapy as tolerated, increase to 100 mg twice daily today. Continue Norvasc, will increase to 10 mg daily today 2. Mechanical ventilator, bronchodilators per pulmonology. Wean from mechanical ventilator as tolerated 3. Will monitor daily labs and x-rays. Electrolyte replacement per protocol. No further transfusion today 4. GI/DVT prophylaxis 5. Pain control current medication regimen 6. CIWA protocol 7. Insulin management per primary care services. Patient is not diabetic, preoperative hemoglobin A1c 5.4% 8. Patient counseled preoperatively and will continue to be counseled throughout her stay that she should refrain from smoking, drinking, using illicit drugs 9. Continue Young catheter for another 24 hours for strict accurate intake and output. Daily weights 10. More recommendations to follow
--- NOTE | 2021-12-27 10:31 | P.PN ---
Subjective Progress Note Date: 12/27/21 This is a 66-year-old -[place] female patient of Dr. Allan with past medical history of hypertension, hyperlipidemia, CVA, single kidney with right nephrectomy, history of hepatitis C, COPD, current tobacco dependence, depression, daily EtOH use, occasional marijuana and cocaine use. Patient had recently been complaining of chest pain and shortness of breath for 2 months, she was seen by cardiology, she follows with Dr. Hutchison, she underwent stress testing which was abnormal and subsequently she had a heart catheterization that demonstrated 85% left main disease, totally occluded RCA with collateral from the left side, proximal LAD stenosis of 95%, mid LAD stenosis of a 50% with distal LAD stenosis of 70%, and circumflex with mild disease of 30-40%. Due to these findings patient was referred to cardiothoracic surgery for surgical revascularization. Transthoracic echocardiogram from 12/09/2021 showed preserved LV function with ejection fraction of 55-60%, mildly increased septal wall thickness and posterior wall thickness. There was mild mitral regurg, aortic valve was structurally normal without significant sclerosis or stenosis or aortic regurgitation, pulmonary artery systolic pressure was normal, there was trace tricuspid regurg. Bedside PFT showed FEV1 of 1.68 L or 73% of predicted, FVC of 2.04, or 68% of predicted, and FEV1 to FEC ratio of 107%, MCV of 63, and this was consistent with mild restrictive pulmonary physiology. Today on 12/21/2021 patient presented to the hospital, and underwent three- vessel coronary artery bypass surgery with DE LA CRUZ to the LAD, SVG to the OM, SVG to the PDA,, left atrial appendage exclusion with 35 mm Atriclip, intraoperative CHAD, and appendectomy aortic scanning. Patient has known history of substance abuse, and her urine drug screen the day of surgery on 12/21/2021 was positive for benzodiazepines and cocaine. We seen the patient in the postoperative period in the ICU, patient is still sedated and intubated, on assist-control mode with a rate of 12, tidal lamberts 400, FiO2 of 100% and PEEP of 5, postoperative blood gas shows pO2 156, pCO2 51, and pH of 7.30 and this was done on the above-mentioned ventilator settings and FiO2 had since been dropped down to 80%. Chest x-ray showing ET tube 2 cm above the henrry, right internal jugular Mont[place]-Pamela in place, bilateral pleural and mediastinal chest tubes in place. No pneumothorax. Patient is in sinus mechanism with a rate of 71, blood pressure is 148/63, PA pressures 33/16, CVP 7-8, cardiac output is 3.6, and cardiac index is 2.0. With SVR of 1400. Currently patient is on lactated Ringer's at 50 ML per hour, insulin is at 0.5 units per hour, nitroglycerin is up 5 mics per kilo per minute, and milrinone is at 0.3 mics per kilo per minute. Right and left pleural chest tubes connected together, and mediastinal chest tube with minimal sanguinous output. No air leak noted. Young catheter is in place, patient is producing 50-65 ML per hour. On 12/22/2021 patient seen in follow-up in intensive care unit, she is waking up, she remains intubated on mechanical ventilator, on assist-control with a rate of 12, tidal volume was 400, FiO2 of 60% and PEEP of 5. This point his blood gas showed pO2 of 68, pCO2 of 43, and pH of 7.39, and this was done on those above-mentioned ventilator settings, patient has since been placed on pressure support of 5 and CPAP of 5 with FiO2 of 50%. She is doing good, she is opening eyes to voice, follows simple commands, appears to be in no acute distress, hemodynamically she is been stable, she is in sinus mechanism with a rate of 90 BPM, she remains on small amount of milrinone at 0.1 cameron per kilo per minute, she is on lactated Ringer's at 50 ML per hour, norepinephrine at 0.08 units per kilo per minute, Cleviprex and nitroglycerin infusions have been discontinued. Today's chest x-ray has been reviewed showing scattered bibasilar infiltrates likely related to atelectasis. PA pressure is 36/17, CVP is 9, cardiac output is 4.8, and cardiac index is 2.7. This morning's labs have been reviewed showing globin of 5.9, white blood cell count of 6.4, platelet count of 99, sodium is 138, potassium is 4.2, chloride is 108, BUN is 15, creatinine is 1.05. Patient was transfused with 1 unit of packed red blood cells, repeat labs from this morning show hemoglobin if 6.6, and patient will receive another unit of packed red blood cells. Patient has a mediastinal chest tube in place and 1 left pleural and one right pleural white connected together, and pleural chest tubes put out 650 mL of serosanguineous output in the last 24 hours, and there is been 300 mL of serous and was output from the mediastinal chest tube. Remains on cefazolin for prophylactic antibiotic coverage. Patient has been started on aspirin, Lipitor, Plavix, she is on subcu heparin, metoprolol 12.5 mg twice daily, Protonix for GI prophylaxis. She is on Ativan per CIWA protocol, and thiamine replacements. Patient's weaning parameters and blood gas following spontaneous breathing trials were satisfactory, and spontaneous tidal volumes were 375, respiratory rate was 20, minute ventilation was 7.35 L/m, R SBI was 60, and this was -25, and we were unable to obtain vital. Blood gas was satisfactory with pO2 of 112, pCO2 44, and pH of 7.38 on pressure-support of 5 and CPAP of 5 and FiO2 of 50%. Patient looks comfortable, and she had a positive cuff week as well. She was extubated and tolerating extubation well. Midsternal incision is clean dry and intact, chest tube sites are clean dry and intact, left leg and the right leg Tad wrap. On 12/23/2021 patient seen in follow-up in intensive care unit, today is postoperative day #2, status post three-vessel coronary artery bypass grafting. She was successfully weaned and extubated yesterday on 12/22/2021, however in the evening she developed respiratory difficulty, hypoxia and required to go on BiPAP support with pressures of 12 and 5 and FiO2 of 100%, which was then weaned down to 50%. Her chest x-ray at 1720 last night showed bilateral chest tubes without evidence of pneumothorax, layering bilateral pleural effusions with associated subsegmental atelectasis, and coronary vascular congestion with cardiomegaly. Patient received one-time dose of IV Lasix she has produced 2.9 L in the urine output over the last 24 hours, however still remains in positive fluid balance of 769 mL over last 24 hours, her right and left pleural chest tubes have been by CT surgery last night, and right-sided pleural chest tube has put out 400 mL of bright red blood overnight, left pleural chest tube only put out 25 mL, and mediastinal chest tube 150 the last 24 hours. Patient received 3 units of packed red blood cells yesterday, his labs have been reviewed, hemoglobin is 8.2, white count is 11.1, platelet count is 75. Sodium is 138, potassium 3.8, chloride is 109, BUN is 13, creatinine 0.84. Hemodynamically patient is improved, her norepinephrine drip has been off since yesterday afternoon, milrinone drip has been discontinued this morning, she remains on Vicodin Ringer's at 50 ML per hour, and insulin at 2 units per hour, she is currently awake and alert, she is on 15 L per high flow nasal cannula, sitting up in a recliner, her incentive spirometer effort is suboptimal, patient is achieving about 500 to sometimes 700 mL on the incentive spirometer, lung sounds are diminished, poor inspiratory effort, there are scattered diffuse crackles throughout. Today's chest x-ray shows continued bilateral patchy opacities throughout both but improving aeration in the lower lungs, bilateral pleural chest tubes in place, no appreciable pneumothorax. PA pressure is 35/13, CVP is 7, cardiac output is 5.4, cardiac index 3.1. Patient states her pain is tolerable, she rates it 7 out of 10, and it is in the anterior sternum incisional area. Patient is tolerating sips of clear liquids. Diet has been ordered for her this morning. The patient is seen today 12/24/2021 in follow-up in the intensive care unit. Postoperative day #3 of the three-vessel coronary artery bypass surgery. She is currently sitting up in a chair at the bedside. Awake and alert in no acute distress. Maintaining O2 saturations in the 90s on 6 L high flow nasal cannula. Bilateral end mediastinal chest tubes remain in place. Chest x-ray reveals no evidence of pneumothorax. Persistent mild cardiomegaly with bilateral multifocal edema/infiltrate. No significant change compared to yesterday. She is pulling only about 500 ML's on her incentive spirometer at this morning. She did not utilize BiPAP last night. She remains on lactated Ringer's at 40 miles per hour. Insulin drip at 1 unit per hour. She is status post 3 units of packed red blood cells this admission. White count 10.6. Hemoglobin 8.1. Platelet count 81,000. Sodium 133. Potassium 4.2. BUN 12. Creatinine 0.69. Glucose 127. AST 56. ALT 13. CVP is 7. Cardiac output 4.8. Cardiac index 2.7. Blood pressure stable. Pacer wires in place. Remains in a -500 ML balance. Continued on DuoNeb inhalations. The patient is seen today 12/25/2021 in follow-up in the intensive care unit. This is postoperative day #4. She is currently resting comfortably in bed. Awake and alert in no acute distress. Chest tubes have been removed. She is maintaining O2 saturations in the 90s on 4 L/m per nasal cannula. Chest lactated Ringer's running at 30 MLS per hour. She is continuing to work with the incentive spirometer. Chest x-ray reveals some mild pulmonary edema. Stable cardiomegaly. No evidence of pneumothorax. She is status post 3 units of packed red blood cells this admission. Current hemoglobin 8.7. Platelets 118. White count 6.3. Sodium 134. Potassium 4.1. Bicarb 22. BUN 12. Creatinine 0.61. Glucose 18. AST 54, ALT 14. Initiated on Arixtra. The patient is seen today 12/26/2021 in follow-up in the intensive care unit. This is postoperative day #5. This morning the patient became quite restless and agitated. Trying to climb out of bed. She required Ativan and Haldol throughout the night. Suspecting alcohol and possible drug withdrawal. She was initiated on Precedex at 0.6 mg/kg per hour. Her oxygen requirements were gradually increasing up to 10 L high flow nasal cannula. Chest x-ray revealed moderate pulmonary vascular congestion and interstitial edema. She was given Lasix 40 mg IVP 1. She was diaphoretic. She was tachypneic with thoracoa bdominal dyssynchrony in her breathing pattern. Blood gases revealed a PaO2 of 66, pCO2 of 34 and a pH of 7.48. She is subsequently required intubation and mechanical ventilatory support at approximately 10 AM. She is currently on assist control mode with tidal volume of 400, respiratory rate of 24, FiO2 100% and a PEEP of 5. Follow-up arterial blood gases revealed a pO2 of 309, pCO2 32 and a PH of 7.52. FiO2 was decreased to 50% and rate was decreased to 20. Left internal jugular triple-lumen catheter and right femoral arterial lines were placed. She is currently on propofol at 20 mcg/kg/m. White count 6.5. Hemoglobin 7.5. Platelets 161. Sodium 133. Potassium 3.6. Chloride 103. BUN 11. Creatinine 0.63. Glucose 153. AST 41. ALT 14. She is currently in a -2 L balance. She remains hemodynamically stable. 12/27/2021, the patient is intubated on a mechanical ventilator. Events from yesterday was noted as the patient had to be reintubated and placed on a mechanical ventilator for multiple reasons was significant of which was her altered mentation and her ongoing signs of alcohol withdrawal and delirium. This morning, the patient is on propofol running at extremely 5 mcg/kg per minute and the patient is calm and comfortable. Precedex was discontinued yesterday. She is an assist-control mode of mechanical ventilation at the rate of 1220 with a tidal volume of 400 and FiO2 of 40% with a PEEP of 5. The chest x-ray from today is showing cardiomegaly. ET tube is in a good location for now. The patient has bilateral pleural effusions, stable compared to yesterday. The patient also has a left subclavian triple-lumen catheter in place. Sternal wires are also in place and there are obvious changes related to thoracotomy. The blood gases from today showed a pH of 7.48 with a pCO2 of 33 and pO2 of 87 and the peak airway pressure is around 19. Hemodynamically, the patient is on KVO IV fluids and the patient is on no pressors. She'll be started on enteral feeding for nutritional support. Cardiac rhythm is sinus. Rest of the blood work shows a white cell count of 9 with a hemoglobin of 7.5 and a platelet count of 247 and the electrolytes all within normal limits, blood sugar is at 107 and the patient's low potassium level which was at 3.2 is being replenished. LFTs are normal. Magnesium is also being replaced. This surgical wound sites of dry clean and intact. All of the chest tubes have been discontinued since surgery. Objective - Vital Signs Vital signs: Vital Signs Temp 98.8 F 12/27/21 08:00 Pulse 96 12/27/21 09:00 Resp 30 H 12/27/21 09:00 BP 145/78 12/27/21 09:00 Pulse Ox 95 12/27/21 09:00 FiO2 40 12/27/21 09:00 Intake & Output 12/26/21 12/27/21 12/27/21 18:59 06:59 18:59 Intake Total 1610.162 419.006 69 Output Total 1330 1030 280 Balance 280.162 -610.994 -211 Weight 76.4 kg Intake: IV 1538 253 69 0.9 @ 20 220 60 Lactated Ringers 1,000 ml 1000 @ 999 mls/hr IV .Q1H1M [facility] Rx#:[id number] Magnesium Sulfate-D5w Pmx 100 1 gm In Dextrose/Water 1 100ml.bag @ 100 mls/hr IVPB Q1H [facility] Rx#: [id number] Magnesium Sulfate-D5w Pmx 100 1 gm In Dextrose/Water 1 100ml.bag @ 100 mls/hr IVPB Q1H [facility] Rx#: [id number] Potassium Chloride 10 meq 200 In Water For Injection 1 100ml.bag @ 100 mls/hr IVPB Q1H [facility] Rx#: [id number] Pressure Bag 18 33 9 Sodium Chloride 0.9% 1, 120 000 ml @ 20 mls/hr IV . Q24H [facility] Rx#:[id number] Intake, IV Titration 72.162 166.006 Amount Dexmedetomidine/0.9% NaCl 0.57 (Pmx) 400 mcg In Empty Bag 1 bag @ 0.2 MCG/KG/HR 3.8 mls/hr IV .Q24H [facility] Rx#:[id number] propofoL 1,000 mg In 71.592 166.006 Empty Bag 1 bag @ 5 MCG/ KG/MIN 2.28 mls/hr IV . Q24H [facility] Rx#:[id number] Output: Urine 1330 1030 280 Other: Voiding Method Indwelling Catheter Indwelling Catheter Indwelling Catheter # Voids 0 ABP, PAP, CO, CI - Last Documented Arterial Blood Pressure 149/67 Pulmonary Artery Pressure 34/8 Cardiac Output 4.8 Cardiac Index 2.7 - Exam GENERAL EXAM: Intubated, sedated 66-year-old female patient, comfortable in no apparent distress. HEAD: Normocephalic/atraumatic. EYES: Normal reaction of pupils, equal size. Conjunctiva pink, sclera white. NOSE: Clear with pink turbinates. THROAT: No erythema or exudates. NECK: No masses, no JVD, no thyroid enlargement, no adenopathy. Left internal jugular triple-lumen catheter in place. CHEST: Heart hugger in place Symmetrical expansion. Midsternal incision is clean dry and intact, chest tubes removed LUNGS: Equal air entry with no crackles, wheeze, rhonchi or dullness. CVS: Regular rate and rhythm, normal S1 and S2, no gallops, no murmurs, no rubs ABDOMEN: Soft, nontender. No hepatosplenomegaly, normal bowel sounds, no guarding or rigidity. EXTREMITIES: Right femoral arterial line in place. No clubbing, no edema, no cyanosis, 2+ pulses and upper and lower extremities. MUSCULOSKELETAL: Muscle strength and tone normal. SPINE: No scoliosis or deformity SKIN: No rashes, left leg interrupted incision covered with Tad wrap - Labs CBC & Chem 7: 12/27/21 04:57 12/27/21 04:57 Labs: Abnormal Lab Results - Last 24 Hours (Table) 12/26/21 12/26/21 12/26/21 Range/Units 10:49 11:22 13:43 RBC (3.80-5.40) m/uL Hgb (11.4-16.0) gm/dL Hct (34.0-46.0) % RDW (11.5-15.5) % Nucleated RBCs (0-0) /100 WBC ABG pH 7.52 H (7.35-7.45) ABG pCO2 32 L (35-45) mmHg ABG pO2 309 H (83-108) mmHg ABG HCO3 26 H (21-25) mmol/L ABG Total CO2 27 H (19-24) mmol/L ABG O2 Saturation 100.0 H (94-97) % Sodium (137-145) mmol/L Potassium (3.5-5.1) mmol/L Glucose (74-99) mg/dL POC Glucose (mg/dL) 153 H 136 H (75-99) mg/dL Calcium (8.4-10.2) mg/dL AST (14-36) U/L Alkaline Phosphatase (38-126) U/L Total Protein (6.3-8.2) g/dL Albumin (3.5-5.0) g/dL 12/26/21 12/26/21 12/27/21 Range/Units 17:26 23:58 04:57 RBC 2.71 L (3.80-5.40) m/uL Hgb 7.5 L (11.4-16.0) gm/dL Hct 23.7 L (34.0-46.0) % RDW 15.9 H (11.5-15.5) % Nucleated RBCs 2 H (0-0) /100 WBC ABG pH (7.35-7.45) ABG pCO2 (35-45) mmHg ABG pO2 (83-108) mmHg ABG HCO3 (21-25) mmol/L ABG Total CO2 (19-24) mmol/L ABG O2 Saturation (94-97) % Sodium (137-145) mmol/L Potassium (3.5-5.1) mmol/L Glucose (74-99) mg/dL POC Glucose (mg/dL) 108 H 128 H (75-99) mg/dL Calcium (8.4-10.2) mg/dL AST (14-36) U/L Alkaline Phosphatase (38-126) U/L Total Protein (6.3-8.2) g/dL Albumin (3.5-5.0) g/dL 12/27/21 12/27/21 12/27/21 Range/Units 04:57 05:38 05:48 RBC (3.80-5.40) m/uL Hgb (11.4-16.0) gm/dL Hct (34.0-46.0) % RDW (11.5-15.5) % Nucleated RBCs (0-0) /100 WBC ABG pH 7.48 H (7.35-7.45) ABG pCO2 33 L (35-45) mmHg ABG pO2 (83-108) mmHg ABG HCO3 (21-25) mmol/L ABG Total CO2 26 H (19-24) mmol/L ABG O2 Saturation 97.4 H (94-97) % Sodium 135 L (137-145) mmol/L Potassium 3.2 L (3.5-5.1) mmol/L Glucose 107 H (74-99) mg/dL POC Glucose (mg/dL) 115 H (75-99) mg/dL Calcium 8.2 L (8.4-10.2) mg/dL AST 39 H (14-36) U/L Alkaline Phosphatase 31 L (38-126) U/L Total Protein 5.2 L (6.3-8.2) g/dL Albumin 2.8 L (3.5-5.0) g/dL Microbiology - Last 24 Hours (Table) 12/26/21 12:30 Gram Stain - Preliminary Sputum Sputum Culture - Preliminary Assessment and Plan Plan: 1 Symptomatic multivessel coronary artery disease, status post three-vessel coronary artery bypass grafting with DE LA CRUZ to LAD, SVG to the OM, SVG to the PDA, left atrial appendage exclusion with 35 mm Atriclip on 12/21/2021 2 Routine postoperative ventilator management, patient was successfully weaned and extubated on 12/22/2021. However, on 12/26/2021 the patient developed suspected acute alcohol/drug withdrawal and thoracoabdominal dyssynchrony breathing pattern requiring reintubation and placed back on mechanical ventilator. The patient has been adequately ventilated at this point in time. The patient is also on sedation and patient is currently on propofol at 55 mcg/kg per minute. 3 Acute blood loss anemia, an expected outcome of sternotomy, and bypass surgery, requiring transfusion with blood products, patient has received 3 units of packed red blood cells, current hemoglobin 7.5 4 History of substance abuse including cocaine, EtOH, and marijuana. Urine drug screen on the day of surgery on 12/21/2021 is positive for cocaine and benzodiazepines, currently on propofol running at 55 mcg/kg per minute and the patient is still arousable although comfortable synchronous with the mechanical ventilator. 5 History of single kidney, with history of nephrectomy 6 Chronic and ongoing tobacco dependence 7 History of CVA 8 Hypertension 9 Hyperlipidemia 10 History of COPD 11 Depression 12 History of hepatitis C Plan: The patient was seen and evaluated I think it's reasonable to wean off the propofol and give the patient sedation holiday and assess his underlying mental status and make sure she has adequate functionality and she is following some simple commands. I don't think she is ready for extubation and I would like to give her at least 24-48 hours on sedation with propofol and continue evaluating her delirium. Addition of Seroquel may be up value also to improve her delirium. Suggest stopping Seroquel 100 mg at bedtime. Start the patient on enteral feeding for nutritional support Hemodynamically stable Patient has bilateral pleural effusions and will be monitored. This is not affecting her oxygenation Lines overall inserted We'll continue working with the cardiothoracic team regarding her care and she may be potentially a difficult extubation because of her underlying comorbidities. We'll continue to follow. Critical care evaluation that was done and more than 30 minutes. T Time with Patient: Greater than 30
[2021-12-27 11:17] LABS: Glucose,Whole Blood 126 mg/dL (75-99)
[2021-12-27] MEDS: amLODIPine 10 MG TAB PO SCH (12:17)
[2021-12-27] MEDS ORDERED: FUROSEMIDE 10 MG/ML 4 ML VIAL IV STA (14:01)
[2021-12-27 15:44] LABS: Potassium 3.6 mmol/L (3.5-5.1)
[2021-12-27 17:43] LABS: Glucose,Whole Blood 108 mg/dL (75-99)
[2021-12-27] MEDS ORDERED: POTASSIUM BICARBONATE/CIT AC 20 MEQ TABLET.EFF NG-TUBE SCH (18:00)
[2021-12-27] MEDS: SENNOSIDES-DOCUSATE SODIUM 1 EACH TAB PO SCH (20:01)
[2021-12-27] MEDS: QUEtiapine 100 MG TAB PO SCH (20:01)
[2021-12-28] MEDS: IPRATROPIUM-ALBUTEROL 3 ML NEB INHALATION SCH ×7 (00:05→23:52)
[2021-12-28 00:12] LABS: Glucose,Whole Blood 164 mg/dL (75-99)
[2021-12-28] MEDS: INSULIN ASPART (NovoLOG) 100 UNIT/ML VIAL SQ SCH ×4 (00:15→18:46)
[2021-12-28 05:15] LABS: ALT 17 U/L (4-34); AST 40 U/L (14-36); African American GFR (CKD) >90 (>60 ml/min/1.73 sqM); Albumin 2.8 g/dL (3.5-5.0); Alkaline Phosphatase 36 U/L (38-126); Anion Gap 8 mmol/L; Blood Urea Nitrogen 14 mg/dL (7-17); Carbon Dioxide 26 mmol/L (22-30); Chloride 99 mmol/L (98-107); Glucose 129 mg/dL (74-99); Non-African American GFR(CKD) 85 (>60 ml/min/1.73 sqM); Potassium 3.3 mmol/L (3.5-5.1); Sodium 133 mmol/L (137-145); Total Bilirubin 0.8 mg/dL (0.2-1.3); Total Protein 5.4 g/dL (6.3-8.2)
[2021-12-28 05:49] LABS: HCT 23.8 % (34.0-46.0); HGB 7.6 gm/dL (11.4-16.0); Hypochromasia Slight; MCH 27.5 pg (25.0-35.0); Mean Platelet Volume 9.1; Platelet Count 342 k/uL (150-450); Poikilocytosis Slight; RBC 2.77 m/uL (3.80-5.40); RDW 15.9 % (11.5-15.5); WBC 14.1 k/uL (3.8-10.6)
[2021-12-28 06:03] LABS: ABG Base Excess 3.6 mmol/L; ABG HCO3 27 mmol/L (21-25); ABG Oxygen Saturation 92.5 % (94-97); ABG PCO2 33 mmHg (35-45); ABG PH 7.52 (7.35-7.45); ABG PO2 60 mmHg (83-108); ABG TCO2 28 mmol/L (19-24)
[2021-12-28 06:05] LABS: Allen Test Performed? No
[2021-12-28 06:09] LABS: Glucose,Whole Blood 160 mg/dL (75-99)
[2021-12-28] MEDS: THIAMINE 100 MG TAB PO SCH ×2 (06:11→16:38)
[2021-12-28] MEDS: POTASSIUM BICARBONATE/CIT AC 20 MEQ TABLET.EFF NG-TUBE SCH ×2 (06:42→08:35)
--- NOTE | 2021-12-28 08:24 | XR ---
EXAMINATION TYPE: XR chest 1V portable DATE OF EXAM: 12/28/2021 COMPARISON: X-ray dated 12/27/2021 HISTORY: Tube placement TECHNIQUE: Single frontal view of the chest is obtained. FINDINGS: The tip of endotracheal tube is about 2.5 cm proximal to the henrry. Good position of the NG tube and the left subclavian line. Unchanged lungs, cardiomediastinal silhouette and bony thoracic cage. IMPRESSION: As above.
[2021-12-28] MEDS: LORazepam 2 MG/ML INJ IV PRN ×3 (08:29→17:02)
[2021-12-28] MEDS: CHLORHEXIDINE GLUCONATE 15 ML CUP MUCOUS MEM SCH ×2 (08:35→21:21)
[2021-12-28] MEDS: PANTOPRAZOLE 40 MG/10 ML VIAL IVP SCH (08:35)
[2021-12-28] MEDS: ASPIRIN 81 MG PO SCH (08:36)
[2021-12-28] MEDS: METOPROLOL TARTRATE 50 MG TAB PO SCH ×2 (08:36→21:33)
[2021-12-28] MEDS: ATORVASTATIN 40 MG TAB PO SCH (08:36)
[2021-12-28] MEDS: CLOPIDOGREL 75 MG TAB PO SCH (08:36)
[2021-12-28] MEDS: FONDAPARINUX 2.5 MG/0.5 ML SYRINGE SQ SCH (08:36)
[2021-12-28] MEDS: FLUoxetine HCL 20 MG CAP PO SCH (08:36)
[2021-12-28] MEDS: MULTIVITAMINS, THERA 1 EACH TAB PO SCH (08:37)
--- NOTE | 2021-12-28 09:42 | P.PN ---
Subjective Progress Note Date: 12/28/21 This is a 66-year-old -English female patient of Dr. Allan with past medical history of hypertension, hyperlipidemia, CVA, single kidney with right nephrectomy, history of hepatitis C, COPD, current tobacco dependence, depression, daily EtOH use, occasional marijuana and cocaine use. Patient had recently been complaining of chest pain and shortness of breath for 2 months, she was seen by cardiology, she follows with Dr. Hutchison, she underwent stress testing which was abnormal and subsequently she had a heart catheterization that demonstrated 85% left main disease, totally occluded RCA with collateral from the left side, proximal LAD stenosis of 95%, mid LAD stenosis of a 50% with distal LAD stenosis of 70%, and circumflex with mild disease of 30-40%. Due to these findings patient was referred to cardiothoracic surgery for surgical revascularization. Transthoracic echocardiogram from 12/09/2021 showed preserved LV function with ejection fraction of 55-60%, mildly increased septal wall thickness and posterior wall thickness. There was mild mitral regurg, aortic valve was structurally normal without significant sclerosis or stenosis or aortic regurgitation, pulmonary artery systolic pressure was normal, there was trace tricuspid regurg. Bedside PFT showed FEV1 of 1.68 L or 73% of predicted, FVC of 2.04, or 68% of predicted, and FEV1 to FEC ratio of 107%, MCV of 63, and this was consistent with mild restrictive pulmonary physiology. Today on 12/21/2021 patient presented to the hospital, and underwent three- vessel coronary artery bypass surgery with DE LA CRUZ to the LAD, SVG to the OM, SVG to the PDA,, left atrial appendage exclusion with 35 mm Atriclip, intraoperative CHAD, and appendectomy aortic scanning. Patient has known history of substance abuse, and her urine drug screen the day of surgery on 12/21/2021 was positive for benzodiazepines and cocaine. We seen the patient in the postoperative period in the ICU, patient is still sedated and intubated, on assist-control mode with a rate of 12, tidal lamberts 400, FiO2 of 100% and PEEP of 5, postoperative blood gas shows pO2 156, pCO2 51, and pH of 7.30 and this was done on the above-mentioned ventilator settings and FiO2 had since been dropped down to 80%. Chest x-ray showing ET tube 2 cm above the henrry, right internal jugular [place] in place, bilateral pleural and mediastinal chest tubes in place. No pneumothorax. Patient is in sinus mechanism with a rate of 71, blood pressure is 148/63, PA pressures 33/16, CVP 7-8, cardiac output is 3.6, and cardiac index is 2.0. With SVR of 1400. Currently patient is on lactated Ringer's at 50 ML per hour, insulin is at 0.5 units per hour, nitroglycerin is up 5 mics per kilo per minute, and milrinone is at 0.3 mics per kilo per minute. Right and left pleural chest tubes connected together, and mediastinal chest tube with minimal sanguinous output. No air leak noted. Young catheter is in place, patient is producing 50-65 ML per hour. On 12/22/2021 patient seen in follow-up in intensive care unit, she is waking up, she remains intubated on mechanical ventilator, on assist-control with a rate of 12, tidal volume was 400, FiO2 of 60% and PEEP of 5. This point his blood gas showed pO2 of 68, pCO2 of 43, and pH of 7.39, and this was done on those above-mentioned ventilator settings, patient has since been placed on pressure support of 5 and CPAP of 5 with FiO2 of 50%. She is doing good, she is opening eyes to voice, follows simple commands, appears to be in no acute distress, hemodynamically she is been stable, she is in sinus mechanism with a rate of 90 BPM, she remains on small amount of milrinone at 0.1 cameron per kilo per minute, she is on lactated Ringer's at 50 ML per hour, norepinephrine at 0.08 units per kilo per minute, Cleviprex and nitroglycerin infusions have been discontinued. Today's chest x-ray has been reviewed showing scattered bibasilar infiltrates likely related to atelectasis. PA pressure is 36/17, CVP is 9, cardiac output is 4.8, and cardiac index is 2.7. This morning's labs have been reviewed showing globin of 5.9, white blood cell count of 6.4, platelet count of 99, sodium is 138, potassium is 4.2, chloride is 108, BUN is 15, creatinine is 1.05. Patient was transfused with 1 unit of packed red blood cells, repeat labs from this morning show hemoglobin if 6.6, and patient will receive another unit of packed red blood cells. Patient has a mediastinal chest tube in place and 1 left pleural and one right pleural white connected together, and pleural chest tubes put out 650 mL of serosanguineous output in the last 24 hours, and there is been 300 mL of serous and was output from the mediastinal chest tube. Remains on cefazolin for prophylactic antibiotic coverage. Patient has been started on aspirin, Lipitor, Plavix, she is on subcu heparin, metoprolol 12.5 mg twice daily, Protonix for GI prophylaxis. She is on Ativan per CIWA protocol, and thiamine replacements. Patient's weaning parameters and blood gas following spontaneous breathing trials were satisfactory, and spontaneous tidal volumes were 375, respiratory rate was 20, minute ventilation was 7.35 L/m, R SBI was 60, and this was -25, and we were unable to obtain vital. Blood gas was satisfactory with pO2 of 112, pCO2 44, and pH of 7.38 on pressure-support of 5 and CPAP of 5 and FiO2 of 50%. Patient looks comfortable, and she had a positive cuff week as well. She was extubated and tolerating extubation well. Midsternal incision is clean dry and intact, chest tube sites are clean dry and intact, left leg and the right leg Tad wrap. On 12/23/2021 patient seen in follow-up in intensive care unit, today is postoperative day #2, status post three-vessel coronary artery bypass grafting. She was successfully weaned and extubated yesterday on 12/22/2021, however in the evening she developed respiratory difficulty, hypoxia and required to go on BiPAP support with pressures of 12 and 5 and FiO2 of 100%, which was then weaned down to 50%. Her chest x-ray at 1720 last night showed bilateral chest tubes without evidence of pneumothorax, layering bilateral pleural effusions with associated subsegmental atelectasis, and coronary vascular congestion with cardiomegaly. Patient received one-time dose of IV Lasix she has produced 2.9 L in the urine output over the last 24 hours, however still remains in positive fluid balance of 769 mL over last 24 hours, her right and left pleural chest tubes have been by CT surgery last night, and right-sided pleural chest tube has put out 400 mL of bright red blood overnight, left pleural chest tube only put out 25 mL, and mediastinal chest tube 150 the last 24 hours. Patient received 3 units of packed red blood cells yesterday, his labs have been reviewed, hemoglobin is 8.2, white count is 11.1, platelet count is 75. Sodium is 138, potassium 3.8, chloride is 109, BUN is 13, creatinine 0.84. Hemodynamically patient is improved, her norepinephrine drip has been off since yesterday afternoon, milrinone drip has been discontinued this morning, she remains on Vicodin Ringer's at 50 ML per hour, and insulin at 2 units per hour, she is currently awake and alert, she is on 15 L per high flow nasal cannula, sitting up in a recliner, her incentive spirometer effort is suboptimal, patient is achieving about 500 to sometimes 700 mL on the incentive spirometer, lung sounds are diminished, poor inspiratory effort, there are scattered diffuse crackles throughout. Today's chest x-ray shows continued bilateral patchy opacities throughout both but improving aeration in the lower lungs, bilateral pleural chest tubes in place, no appreciable pneumothorax. PA pressure is 35/13, CVP is 7, cardiac output is 5.4, cardiac index 3.1. Patient states her pain is tolerable, she rates it 7 out of 10, and it is in the anterior sternum incisional area. Patient is tolerating sips of clear liquids. Diet has been ordered for her this morning. The patient is seen today 12/24/2021 in follow-up in the intensive care unit. Postoperative day #3 of the three-vessel coronary artery bypass surgery. She is currently sitting up in a chair at the bedside. Awake and alert in no acute distress. Maintaining O2 saturations in the 90s on 6 L high flow nasal cannula. Bilateral end mediastinal chest tubes remain in place. Chest x-ray reveals no evidence of pneumothorax. Persistent mild cardiomegaly with bilateral multifocal edema/infiltrate. No significant change compared to yesterday. She is pulling only about 500 ML's on her incentive spirometer at this morning. She did not utilize BiPAP last night. She remains on lactated Ringer's at 40 miles per hour. Insulin drip at 1 unit per hour. She is status post 3 units of packed red blood cells this admission. White count 10.6. Hemoglobin 8.1. Platelet count 81,000. Sodium 133. Potassium 4.2. BUN 12. Creatinine 0.69. Glucose 127. AST 56. ALT 13. CVP is 7. Cardiac output 4.8. Cardiac index 2.7. Blood pressure stable. Pacer wires in place. Remains in a -500 ML balance. Continued on DuoNeb inhalations. The patient is seen today 12/25/2021 in follow-up in the intensive care unit. This is postoperative day #4. She is currently resting comfortably in bed. Awake and alert in no acute distress. Chest tubes have been removed. She is maintaining O2 saturations in the 90s on 4 L/m per nasal cannula. Chest lactated Ringer's running at 30 MLS per hour. She is continuing to work with the incentive spirometer. Chest x-ray reveals some mild pulmonary edema. Stable cardiomegaly. No evidence of pneumothorax. She is status post 3 units of packed red blood cells this admission. Current hemoglobin 8.7. Platelets 118. White count 6.3. Sodium 134. Potassium 4.1. Bicarb 22. BUN 12. Creatinine 0.61. Glucose 18. AST 54, ALT 14. Initiated on Arixtra. The patient is seen today 12/26/2021 in follow-up in the intensive care unit. This is postoperative day #5. This morning the patient became quite restless and agitated. Trying to climb out of bed. She required Ativan and Haldol throughout the night. Suspecting alcohol and possible drug withdrawal. She was initiated on Precedex at 0.6 mg/kg per hour. Her oxygen requirements were gradually increasing up to 10 L high flow nasal cannula. Chest x-ray revealed moderate pulmonary vascular congestion and interstitial edema. She was given Lasix 40 mg IVP 1. She was diaphoretic. She was tachypneic with thoracoa bdominal dyssynchrony in her breathing pattern. Blood gases revealed a PaO2 of 66, pCO2 of 34 and a pH of 7.48. She is subsequently required intubation and mechanical ventilatory support at approximately 10 AM. She is currently on assist control mode with tidal volume of 400, respiratory rate of 24, FiO2 100% and a PEEP of 5. Follow-up arterial blood gases revealed a pO2 of 309, pCO2 32 and a PH of 7.52. FiO2 was decreased to 50% and rate was decreased to 20. Left internal jugular triple-lumen catheter and right femoral arterial lines were placed. She is currently on propofol at 20 mcg/kg/m. White count 6.5. Hemoglobin 7.5. Platelets 161. Sodium 133. Potassium 3.6. Chloride 103. BUN 11. Creatinine 0.63. Glucose 153. AST 41. ALT 14. She is currently in a -2 L balance. She remains hemodynamically stable. 12/27/2021, the patient is intubated on a mechanical ventilator. Events from yesterday was noted as the patient had to be reintubated and placed on a mechanical ventilator for multiple reasons was significant of which was her altered mentation and her ongoing signs of alcohol withdrawal and delirium. This morning, the patient is on propofol running at extremely 5 mcg/kg per minute and the patient is calm and comfortable. Precedex was discontinued yesterday. She is an assist-control mode of mechanical ventilation at the rate of 1220 with a tidal volume of 400 and FiO2 of 40% with a PEEP of 5. The chest x-ray from today is showing cardiomegaly. ET tube is in a good location for now. The patient has bilateral pleural effusions, stable compared to yesterday. The patient also has a left subclavian triple-lumen catheter in place. Sternal wires are also in place and there are obvious changes related to thoracotomy. The blood gases from today showed a pH of 7.48 with a pCO2 of 33 and pO2 of 87 and the peak airway pressure is around 19. Hemodynamically, the patient is on KVO IV fluids and the patient is on no pressors. She'll be started on enteral feeding for nutritional support. Cardiac rhythm is sinus. Rest of the blood work shows a white cell count of 9 with a hemoglobin of 7.5 and a platelet count of 247 and the electrolytes all within normal limits, blood sugar is at 107 and the patient's low potassium level which was at 3.2 is being replenished. LFTs are normal. Magnesium is also being replaced. This surgical wound sites of dry clean and intact. All of the chest tubes have been discontinued since surgery. 12/28/2021, the patient remains intubated on a mechanical ventilator. A sedation holiday will be given to her today. She remains on propofol running at 50 mcg/kg per minute. No Precedex is running at this point in time. While on the mechanical ventilator, she is quite synchronous and comfortable. She is an assist-control at the rate of 20 with a tidal volume of 375 with an FiO2 of 40% and PEEP of 5. The blood gas showed a pH of 7.5 with a pCO2 of 32 and pO2 of 60. Chest x-ray shows adequate expansion of both lungs. Chest tubes are removed. ET tube is in a good location. There is evidence of pulmonary vessel congestion and cardiomegaly and based on that the cardiothoracic team opted to give her a dose of Lasix. ET tube is in adequate location for now. No evidence of any pneumothorax. The patient has a left subclavian triple-lumen catheter in place. Otherwise, no seizure activity. A sedation holiday will be given to her today. She was started on Seroquel regarding her ongoing delirium and she received a dose of 100 mg overnight. On today's blood work, the white cell count of 14.1 with a hemoglobin of 7.6 and the rest of the electrodes are normal and the potassium is to be replaced at 3.3, BUN is at 14 with a creatinine of 0.7. Afebrile. She is on no antibiotics for now. Producing adequate amount of urine output. Fluid balance has been -1.4 L over the past 24 hours. The pat ient is receiving enteral feeding in the form of Vital HP @ rate of 30 Objective - Vital Signs Vital signs: Vital Signs Temp 98.8 F 12/28/21 08:00 Pulse 90 12/28/21 09:12 Resp 20 12/28/21 09:12 BP 127/72 12/28/21 09:00 Pulse Ox 94 L 12/28/21 09:00 FiO2 40 12/28/21 08:00 Intake & Output 12/27/21 12/28/21 12/28/21 18:59 06:59 18:59 Intake Total 519.058 836.000 259.224 Output Total 2295 505 200 Balance -1775.942 331.000 59.224 Weight 76.4 kg 74.525 kg Intake: IV 276 276 69 0.9 @ 20 240 240 60 Pressure Bag 36 36 9 Intake, IV Titration 163.058 200.000 70.224 Amount propofoL 1,000 mg In 163.058 200.000 70.224 Empty Bag 1 bag @ 5 MCG/ KG/MIN 2.28 mls/hr IV . Q24H [facility] Rx#:[id number] Tube Feeding 50 270 90 Other 30 90 30 Output: Urine 2295 505 200 Other: Voiding Method Indwelling Catheter Indwelling Catheter ABP, PAP, CO, CI - Last Documented Arterial Blood Pressure 158/67 Pulmonary Artery Pressure 34/8 Cardiac Output 4.8 Cardiac Index 2.7 - Exam GENERAL EXAM: Intubated, sedated 66-year-old female patient, comfortable in no apparent distress. HEAD: Normocephalic/atraumatic. EYES: Normal reaction of pupils, equal size. Conjunctiva pink, sclera white. NOSE: Clear with pink turbinates. THROAT: No erythema or exudates. NECK: No masses, no JVD, no thyroid enlargement, no adenopathy. Left internal jugular triple-lumen catheter in place. CHEST: Heart hugger in place Symmetrical expansion. Midsternal incision is clean dry and intact, chest tubes removed LUNGS: Equal air entry with no crackles, wheeze, rhonchi or dullness. CVS: Regular rate and rhythm, normal S1 and S2, no gallops, no murmurs, no rubs ABDOMEN: Soft, nontender. No hepatosplenomegaly, normal bowel sounds, no guarding or rigidity. EXTREMITIES: Right femoral arterial line in place. No clubbing, no edema, no cyanosis, 2+ pulses and upper and lower extremities. MUSCULOSKELETAL: Muscle strength and tone normal. SPINE: No scoliosis or deformity SKIN: No rashes, left leg interrupted incision covered with Tad wrap - Labs CBC & Chem 7: 12/28/21 04:12 12/28/21 04:12 Labs: Abnormal Lab Results - Last 24 Hours (Table) 12/27/21 12/27/21 12/28/21 Range/Units 11:16 17:42 00:11 WBC (3.8-10.6) k/uL RBC (3.80-5.40) m/uL Hgb (11.4-16.0) gm/dL Hct (34.0-46.0) % RDW (11.5-15.5) % ABG pH (7.35-7.45) ABG pCO2 (35-45) mmHg ABG pO2 (83-108) mmHg ABG HCO3 (21-25) mmol/L ABG Total CO2 (19-24) mmol/L ABG O2 Saturation (94-97) % Sodium (137-145) mmol/L Potassium (3.5-5.1) mmol/L Glucose (74-99) mg/dL POC Glucose (mg/dL) 126 H 108 H 164 H (75-99) mg/dL Calcium (8.4-10.2) mg/dL AST (14-36) U/L Alkaline Phosphatase (38-126) U/L Total Protein (6.3-8.2) g/dL Albumin (3.5-5.0) g/dL 12/28/21 12/28/21 12/28/21 Range/Units 04:12 04:12 05:52 WBC 14.1 H (3.8-10.6) k/uL RBC 2.77 L (3.80-5.40) m/uL Hgb 7.6 L (11.4-16.0) gm/dL Hct 23.8 L (34.0-46.0) % RDW 15.9 H (11.5-15.5) % ABG pH 7.52 H (7.35-7.45) ABG pCO2 33 L (35-45) mmHg ABG pO2 60 L (83-108) mmHg ABG HCO3 27 H (21-25) mmol/L ABG Total CO2 28 H (19-24) mmol/L ABG O2 Saturation 92.5 L (94-97) % Sodium 133 L (137-145) mmol/L Potassium 3.3 L (3.5-5.1) mmol/L Glucose 129 H (74-99) mg/dL POC Glucose (mg/dL) (75-99) mg/dL Calcium 8.0 L (8.4-10.2) mg/dL AST 40 H (14-36) U/L Alkaline Phosphatase 36 L (38-126) U/L Total Protein 5.4 L (6.3-8.2) g/dL Albumin 2.8 L (3.5-5.0) g/dL 12/28/21 Range/Units 06:07 WBC (3.8-10.6) k/uL RBC (3.80-5.40) m/uL Hgb (11.4-16.0) gm/dL Hct (34.0-46.0) % RDW (11.5-15.5) % ABG pH (7.35-7.45) ABG pCO2 (35-45) mmHg ABG pO2 (83-108) mmHg ABG HCO3 (21-25) mmol/L ABG Total CO2 (19-24) mmol/L ABG O2 Saturation (94-97) % Sodium (137-145) mmol/L Potassium (3.5-5.1) mmol/L Glucose (74-99) mg/dL POC Glucose (mg/dL) 160 H (75-99) mg/dL Calcium (8.4-10.2) mg/dL AST (14-36) U/L Alkaline Phosphatase (38-126) U/L Total Protein (6.3-8.2) g/dL Albumin (3.5-5.0) g/dL Microbiology - Last 24 Hours (Table) 12/26/21 12:30 Gram Stain - Final Sputum Sputum Culture - Final Assessment and Plan Plan: 1 Symptomatic multivessel coronary artery disease, status post three-vessel coronary artery bypass grafting with [place] CRUZ to LAD, SVG to the OM, SVG to the PDA, left atrial appendage exclusion with 35 mm Atriclip on 12/21/2021 2 Routine postoperative ventilator management, patient was successfully weaned and extubated on 12/22/2021. However, on 12/26/2021 the patient developed suspected acute alcohol/drug withdrawal and thoracoabdominal dyssynchrony breathing pattern requiring reintubation and placed back on mechanical ventilator. The patient has been adequately ventilated at this point in time. The patient is also on sedation and patient is currently on propofol at 55 mcg/kg per minute. Repeat chest x-ray from today shows a component of pulmonary edema/four-vessel congestion and the patient is being diuresis. The same time the blood gases showing a component of respiratory alkalosis. Necessity ventil ator changes will be done. 3 Acute blood loss anemia, an expected outcome of sternotomy, and bypass surgery, requiring transfusion with blood products, patient has received 3 units of packed red blood cells, current hemoglobin 7.6 4 History of substance abuse including cocaine, EtOH, and marijuana. Urine drug screen on the day of surgery on 12/21/2021 is positive for cocaine and benzodiazepines, currently on propofol running at 55 mcg/kg per minute and the patient is still arousable although comfortable synchronous with the mechanical ventilator. 5 History of single kidney, with history of nephrectomy 6 Chronic and ongoing tobacco dependence 7 History of CVA 8 Hypertension 9 Hyperlipidemia 10 History of COPD 11 Depression 12 History of hepatitis C Plan: Continue ventilator support Drop the tidal volume to 375 Titrate FiO2 operative there is any desaturations Lasix 40 mg IV every 12 hours Replace potassium Sedation holiday Continue Seroquel 100 mg at bedtime enteral feeding for nutritional support Hemodynamically stable Patient has bilateral pleural effusions and will be monitored. This is not affecting her oxygenation will continue the Lasix for now Lines overall inserted We'll continue working with the cardiothoracic team regarding her care and she may be potentially a difficult extubation because of her underlying comorbidities. We'll continue to follow. Critical care evaluation that was done and more than 30 minutes. T Time with Patient: Greater than 30
[2021-12-28] MEDS: FUROSEMIDE 10 MG/ML 4 ML VIAL IV SCH ×2 (09:57→16:38)
[2021-12-28] MEDS: POTASSIUM BICARBONATE/CIT AC 20 MEQ TABLET.EFF OG-TUBE SCH ×2 (09:59→16:38)
--- NOTE | 2021-12-28 10:05 | P.PN ---
Subjective Progress Note Date: 12/28/21 Principal diagnosis: Coronary artery disease with left main disease. Past medical history significant for hypertension, current ongoing tobacco dependence with mild COPD, daily EtOH use (1 pint per day of liquor), occasional marijuana and cocaine use (UDS was positive for cocaine on admission), hepatitis C, CVA 20 years ago, and solitary kidney. POD #7 coronary artery bypass grafting 3 vessels, left internal mammary artery to the left anterior descending artery, a reverse saphenous vein graft to the obtuse marginal coronary artery, a reverse saphenous vein graft to the posterior descending coronary artery, endoscopic harvesting of the left greater saphenous vein, ligation of the left atrial appendage using a 35 mm AtriClip, epi-aortic ultrasound and intraoperative transesophageal echocardiogram Postoperative acute blood loss anemia and thrombocytopenia, expected given hemodilution and cardiopulmonary bypass pump. Suspected alcohol/drug withdrawal with thoracoabdominal dyssynchrony breathing pattern, reintubated per Dr. Thornton. The patient was seen and examined today 12/28/2021 at her bedside in the intensive care unit. Currently she is lying in bed, remains intubated with mechanical ventilator support, current mechanical ventilator settings are assist control 20, TV 400, FiO2 40% and a PEEP of 5. Oxygen saturation is 94% on current mechanical ventilator settings. ABG results this morning show a pH of 7.52, pCO2 33, pO2 60, HCO3 27, oxygen saturation 92.5 and base excess 3.6. Respirations remain synchronous with the current mechanical ventilator settings. Propofol drip in place at 50 mcg/kg/m for sedation. She remained hemodynamically stable and is currently on no inotropic or pressor support. She has been afebrile the last 24 hours. Bedside telemetry showing normal sinus rhythm heart rate 96 BPM. She was started on Seroquel yesterday by pulmonary/critical care medicine for alcohol withdrawal symptoms. Left subclavian triple-lumen catheter and right femoral arterial line in place. Laboratory results this morning show a WBC count of 14.1, hemoglobin 7.6, hematocrit 23.8, platelets 342, sodium 133, potassium 3.3, BUN 14, creatinine 0.74, calcium 8.0, magnesium 2.0, AST 40 and ALT 17. Potassium is being replaced per protocol. Objective - Vital Signs Vital signs: Vital Signs Temp 98.8 F 12/28/21 08:00 Pulse 90 12/28/21 09:12 Resp 20 12/28/21 09:12 BP 127/72 12/28/21 09:00 Pulse Ox 94 L 12/28/21 09:00 FiO2 40 12/28/21 08:00 Intake & Output 12/27/21 12/28/21 12/28/21 18:59 06:59 18:59 Intake Total 519.058 836.000 259.224 Output Total 2295 505 200 Balance -1775.942 331.000 59.224 Weight 76.4 kg 74.525 kg Intake: IV 276 276 69 0.9 @ 20 240 240 60 Pressure Bag 36 36 9 Intake, IV Titration 163.058 200.000 70.224 Amount propofoL 1,000 mg In 163.058 200.000 70.224 Empty Bag 1 bag @ 5 MCG/ KG/MIN 2.28 mls/hr IV . Q24H [facility] Rx#:[id number] Tube Feeding 50 270 90 Other 30 90 30 Output: Urine 2295 505 200 Other: Voiding Method Indwelling Catheter Indwelling Catheter ABP, PAP, CO, CI - Last Documented Arterial Blood Pressure 158/67 Pulmonary Artery Pressure 34/8 Cardiac Output 4.8 Cardiac Index 2.7 - Exam CONSTITUTIONAL: Currently laying in bed in the intensive care unit. She is sedated with propofol drip and remains intubated with mechanical ventilator support. RESPIRATORY: Lungs sounds diminished throughout bilaterally. Respirations are symmetrical, and nonlabored with mechanical ventilator support. Current mechanical ventilator settings are assist control 20, TV 400, FiO2 40% and a PEEP of 5. Oxygen saturation are 94% on current mechanical ventilator settings. ET tube in place at 23 cm at the lip. CARDIOVASCULAR: S1, S2 present. Regular rate and rhythm, sinus rhythm on telemetry, heart rate 96 BPM. Sternum stable. Palpable peripheral pulses bilaterally. No edema present. No calf pain or tenderness noted. Heart hugger, antiembolism stockings, SCDs present. GASTROINTESTINAL: Abdomen soft, nontender, nondistended. Active bowel sounds present 4 quadrants. Passing flatus. No guarding or rigidity. OG tube in place with vital high-protein to feeding infusing at 30 mL per hour with automatic water flushes 30 mL every 4 hours. GENITOURINARY: Young catheter in place for accurate I's and O's. Urine output 350 mL in the last 8 hours. INTEGUMENTARY: Skin is warm and dry with evidence of clubbing or cyanosis. midline sternal chest incision well approximated and covered with dry intact dressing. Left lower extremity EVH site well approximated without redness or drainage. NEUROLOGIC: Currently sedated on propofol drip, unable to accurately assess. INVASIVE LINES AND TUBES: A/V epicardial pacemaker wires present, and grounded. Left subclavian triple-lumen catheter and right femoral arterial line in place and functioning. - Allied health notes Allied health notes reviewed: nursing - Labs CBC & Chem 7: 12/28/21 04:12 12/28/21 04:12 Labs: Abnormal Lab Results - Last 24 Hours (Table) 12/27/21 12/27/21 12/28/21 Range/Units 11:16 17:42 00:11 WBC (3.8-10.6) k/uL RBC (3.80-5.40) m/uL Hgb (11.4-16.0) gm/dL Hct (34.0-46.0) % RDW (11.5-15.5) % ABG pH (7.35-7.45) ABG pCO2 (35-45) mmHg ABG pO2 (83-108) mmHg ABG HCO3 (21-25) mmol/L ABG Total CO2 (19-24) mmol/L ABG O2 Saturation (94-97) % Sodium (137-145) mmol/L Potassium (3.5-5.1) mmol/L Glucose (74-99) mg/dL POC Glucose (mg/dL) 126 H 108 H 164 H (75-99) mg/dL Calcium (8.4-10.2) mg/dL AST (14-36) U/L Alkaline Phosphatase (38-126) U/L Total Protein (6.3-8.2) g/dL Albumin (3.5-5.0) g/dL 12/28/21 12/28/21 12/28/21 Range/Units 04:12 04:12 05:52 WBC 14.1 H (3.8-10.6) k/uL RBC 2.77 L (3.80-5.40) m/uL Hgb 7.6 L (11.4-16.0) gm/dL Hct 23.8 L (34.0-46.0) % RDW 15.9 H (11.5-15.5) % ABG pH 7.52 H (7.35-7.45) ABG pCO2 33 L (35-45) mmHg ABG pO2 60 L (83-108) mmHg ABG HCO3 27 H (21-25) mmol/L ABG Total CO2 28 H (19-24) mmol/L ABG O2 Saturation 92.5 L (94-97) % Sodium 133 L (137-145) mmol/L Potassium 3.3 L (3.5-5.1) mmol/L Glucose 129 H (74-99) mg/dL POC Glucose (mg/dL) (75-99) mg/dL Calcium 8.0 L (8.4-10.2) mg/dL AST 40 H (14-36) U/L Alkaline Phosphatase 36 L (38-126) U/L Total Protein 5.4 L (6.3-8.2) g/dL Albumin 2.8 L (3.5-5.0) g/dL 12/28/21 Range/Units 06:07 WBC (3.8-10.6) k/uL RBC (3.80-5.40) m/uL Hgb (11.4-16.0) gm/dL Hct (34.0-46.0) % RDW (11.5-15.5) % ABG pH (7.35-7.45) ABG pCO2 (35-45) mmHg ABG pO2 (83-108) mmHg ABG HCO3 (21-25) mmol/L ABG Total CO2 (19-24) mmol/L ABG O2 Saturation (94-97) % Sodium (137-145) mmol/L Potassium (3.5-5.1) mmol/L Glucose (74-99) mg/dL POC Glucose (mg/dL) 160 H (75-99) mg/dL Calcium (8.4-10.2) mg/dL AST (14-36) U/L Alkaline Phosphatase (38-126) U/L Total Protein (6.3-8.2) g/dL Albumin (3.5-5.0) g/dL Microbiology - Last 24 Hours (Table) 12/26/21 12:30 Gram Stain - Final Sputum Sputum Culture - Final - Imaging and Cardiology Chest x-ray: report reviewed, image reviewed Assessment and Plan Assessment: 1. Coronary artery disease with left main disease, status post three-vessel CABG 2. History of hypertension 3. Current ongoing tobacco dependence 4. Mild COPD, preoperative FEV1 was 73% of predicted 5. Daily EtOH use (1 pint per day of liquor) 6. Occasional marijuana and cocaine use (UDS was positive for cocaine on admission) 7. Hepatitis C 8. CVA 20 years ago 9. Solitary kidney. 10. Postoperative acute blood loss anemia and thrombocytopenia, expected 11. Suspected alcohol/drug withdrawal with thoracoabdominal dyssynchrony breathing pattern, reintubated per Dr. Thornton Plan: 1. Continue aspirin, statin, Plavix, Norvasc, beta briana. Increase metoprolol tartrate as tolerated. 2. Mechanical ventilator, bronchodilators per pulmonary/critical care medicine. 3. Propofol drip management per pulmonary/critical care medicine. 4. Will monitor daily labs and chest x-rays. Electrolyte replacement per protocol. 5. GI/DVT prophylaxis. 6. Pain control current medication regimen. 7. CIWA protocol. The patient was started on Seroquel 100 mg per OG tube daily at bedtime yesterday 12/27/2021 by pulmonary critical care medicine. 8. Insulin management per primary care services. Patient is not diabetic, preoperative hemoglobin A1c 5.4%. 9. Patient counseled preoperatively and will continue to be counseled thro ughout her stay that she should refrain from smoking, drinking, using illicit drugs. 10. Keep Young catheter in place for accurate I's and O's, continue to record strict and accurate intake and output. Daily weights. 11. Lasix 40 mg IV 1 now and again at 4 PM today. 12. Keep atrial and ventricular epicardial pacemaker wires in place and grounded. 13. Keep OG tube in place with vital high-protein to feedings infusing per dietitian recommendations. 14. More recommendations to follow based on patient's clinical course. Time with Patient: Greater than 30
[2021-12-28 11:33] LABS: Glucose,Whole Blood 127 mg/dL (75-99)
[2021-12-28] MEDS: amLODIPine 10 MG TAB PO SCH (11:35)
[2021-12-28] MEDS: HYDROmorphone 1 MG/ML 1 ML SYRINGE IVP PRN (17:47)
[2021-12-28 18:07] LABS: Glucose,Whole Blood 131 mg/dL (75-99)
[2021-12-28] MEDS: SENNOSIDES-DOCUSATE SODIUM 1 EACH TAB PO SCH (21:22)
[2021-12-28] MEDS: QUEtiapine 100 MG TAB PO SCH (21:22)
[2021-12-28 23:58] LABS: Glucose,Whole Blood 156 mg/dL (75-99)
[2021-12-29] MEDS: INSULIN ASPART (NovoLOG) 100 UNIT/ML VIAL SQ SCH ×5 (00:08→23:49)
[2021-12-29] MEDS: IPRATROPIUM-ALBUTEROL 3 ML NEB INHALATION SCH ×5 (03:38→21:04)
[2021-12-29 05:33] LABS: ALT 27 U/L (4-34); AST 69 U/L (14-36); African American GFR (CKD) >90 (>60 ml/min/1.73 sqM); Albumin 2.7 g/dL (3.5-5.0); Alkaline Phosphatase 45 U/L (38-126); Anion Gap 2 mmol/L; Blood Urea Nitrogen 21 mg/dL (7-17); Carbon Dioxide 29 mmol/L (22-30); Chloride 104 mmol/L (98-107); Glucose 136 mg/dL (74-99); Non-African American GFR(CKD) >90 (>60 ml/min/1.73 sqM); Potassium 3.6 mmol/L (3.5-5.1); Sodium 135 mmol/L (137-145); Total Bilirubin 0.7 mg/dL (0.2-1.3); Total Protein 5.5 g/dL (6.3-8.2)
[2021-12-29 05:35] LABS: Basophils % (A) 0 %; Eosinophils # (A) 0.1 k/uL (0-0.7); Eosinophils % (A) 1 %; HCT 23.1 % (34.0-46.0); HGB 7.3 gm/dL (11.4-16.0); Hypochromasia Slight; Lymphocytes # (A) 1.2 k/uL (1.0-4.8); Lymphocytes % (A) 10 %; MCH 27.3 pg (25.0-35.0); MCHC 31.6 g/dL (31.0-37.0); MCV 86.5 fL (80.0-100.0); Mean Platelet Volume 9.3; Monocytes # (A) 0.7 k/uL (0-1.0); Monocytes % (A) 6 %; Neutrophils # (A) 10.3 k/uL (1.3-7.7); Neutrophils % (A) 81 %; Platelet Count 421 k/uL (150-450); Poikilocytosis Slight; RBC 2.67 m/uL (3.80-5.40); RDW 15.9 % (11.5-15.5); WBC 12.7 k/uL (3.8-10.6)
[2021-12-29 05:43] LABS: ABG HCO3 28 mmol/L (21-25); ABG Oxygen Saturation 94.9 % (94-97); ABG PCO2 36 mmHg (35-45); ABG PH 7.51 (7.35-7.45); ABG PO2 68 mmHg (83-108); ABG TCO2 29 mmol/L (19-24)
[2021-12-29 05:52] LABS: Allen Test Performed? No
[2021-12-29 05:59] LABS: Glucose,Whole Blood 148 mg/dL (75-99)
[2021-12-29] MEDS ORDERED: POTASSIUM BICARBONATE/CIT AC 20 MEQ TABLET.EFF NG-TUBE SCH (06:00)
[2021-12-29] MEDS: THIAMINE 100 MG TAB PO SCH ×2 (06:09→18:13)
--- NOTE | 2021-12-29 07:56 | P.PN ---
Subjective Progress Note Date: 12/29/21 Principal diagnosis: Coronary artery disease with left main disease. Previous medical history of hypertension, current tobacco dependence with mild COPD, daily EtOH use (1 pint per day of liquor), occasional marijuana and cocaine use (UDS was positive for cocaine on admission), hepatitis C, CVA 20 years ago, solitary kidney. POD #8 coronary artery bypass grafting 3 vessels, left internal mammary artery to the left anterior descending artery, reverse saphenous vein graft to the obtuse marginal artery, reverse saphenous vein graft to the posterior descending artery, endoscopic harvesting of the left greater saphenous vein, ligation of the left atrial appendage using a 35 mm AtriClip, epi-aortic ultrasound and intraoperative transesophageal echocardiogram Postoperative acute blood loss anemia and thrombocytopenia, expected given hemodilution and cardiopulmonary bypass pump Suspected alcohol/drug withdrawal with thoracoabdominal dyssynchrony breathing pattern, reintubated per Dr. Thornton The patient was seen and examined this morning lying in bed in the intensive care unit mechanically ventilated with propofol for sedation. Weaning trial was attempted yesterday, HR/BP elevated and patient was very agitated, placed back on sedation. She remains in sinus rhythm with heart rate in the high 90s, hemodynamically stable, urine output has been adequate. Chest x-ray and lab work were reviewed. Seroquel started yesterday by Dr. Padilla. Objective - Vital Signs Vital signs: Vital Signs Temp 97.4 F L 12/29/21 04:00 Pulse 96 12/29/21 07:00 Resp 20 12/29/21 07:00 BP 117/62 12/29/21 07:00 Pulse Ox 96 12/29/21 07:00 FiO2 40 12/29/21 07:25 Intake & Output 12/28/21 12/29/21 12/29/21 18:59 06:59 18:59 Intake Total 1018.102 955.480 Output Total 1485 915 Balance -466.898 40.480 Weight 74.79 kg Intake: IV 276 299 0.9 @ 20 240 260 Pressure Bag 36 39 Intake, IV Titration 272.102 136.480 Amount propofoL 1,000 mg In 272.102 136.480 Empty Bag 1 bag @ 5 MCG/ KG/MIN 2.28 mls/hr IV . Q24H [facility] Rx#:[id number] Tube Feeding 410 520 Other 60 Output: Urine 1485 915 Other: Voiding Method Indwelling Catheter Indwelling Catheter ABP, PAP, CO, CI - Last Documented Arterial Blood Pressure 130/51 Pulmonary Artery Pressure 34/8 Cardiac Output 4.8 Cardiac Index 2.7 - Exam CONSTITUTIONAL: Sedated with propofol on mechanical ventilation, still very twitchy, moving legs continuously RESPIRATORY: Lungs sounds diminished bilaterally. Respirations even, nonlabored. Current ventilator settings FiO2 40%, tidal volume 375, respiratory rate 20, PEEP 5. 8.0 ET tube present, 23 at the lip CARDIOVASCULAR: S1, S2 present. Regular rate and rhythm, sinus rhythm on telemetry. Sternum stable. Palpable peripheral pulses bilaterally. No edema present. Heart hugger, antiembolism stockings, SCDs present. GASTROINTESTINAL: Abdomen soft, nontender, nondistended. Active bowel sounds present 4 quadrants. OG tube present, tolerating tube feeding at 40 mL/hr GENITOURINARY: Young present draining clear, yellow urine. Output overnight 30-75 mL per hour, 2400 mL in the last 24 hours INTEGUMENTARY: Skin is warm and dry with evidence of good perfusion. Anterior chest incision well approximated and covered with dry intact dressing. Left lower extremity EVH site well approximated without redness or drainage. NEUROLOGIC: Cranial nerves II through XII intact INVASIVE LINES AND TUBES: A/V epicardial pacemaker wires present, grounded. Left internal jugular triple-lumen central line, right femoral arterial line present - Allied health notes Allied health notes reviewed: nursing - Labs CBC & Chem 7: 12/29/21 05:06 12/29/21 05:06 Labs: Abnormal Lab Results - Last 24 Hours (Table) 12/28/21 12/28/21 12/28/21 Range/Units 11:30 18:06 23:55 WBC (3.8-10.6) k/uL RBC (3.80-5.40) m/uL Hgb (11.4-16.0) gm/dL Hct (34.0-46.0) % RDW (11.5-15.5) % Neutrophils # (1.3-7.7) k/uL ABG pH (7.35-7.45) ABG pO2 (83-108) mmHg ABG HCO3 (21-25) mmol/L ABG Total CO2 (19-24) mmol/L Sodium (137-145) mmol/L BUN (7-17) mg/dL Glucose (74-99) mg/dL POC Glucose (mg/dL) 127 H 131 H 156 H (75-99) mg/dL Calcium (8.4-10.2) mg/dL AST (14-36) U/L Total Protein (6.3-8.2) g/dL Albumin (3.5-5.0) g/dL 12/29/21 12/29/21 12/29/21 Range/Units 05:06 05:06 05:22 WBC 12.7 H (3.8-10.6) k/uL RBC 2.67 L (3.80-5.40) m/uL Hgb 7.3 L (11.4-16.0) gm/dL Hct 23.1 L (34.0-46.0) % RDW 15.9 H (11.5-15.5) % Neutrophils # 10.3 H (1.3-7.7) k/uL ABG pH 7.51 H (7.35-7.45) ABG pO2 68 L (83-108) mmHg ABG HCO3 28 H (21-25) mmol/L ABG Total CO2 29 H (19-24) mmol/L Sodium 135 L (137-145) mmol/L BUN 21 H (7-17) mg/dL Glucose 136 H (74-99) mg/dL POC Glucose (mg/dL) (75-99) mg/dL Calcium 8.0 L (8.4-10.2) mg/dL AST 69 H (14-36) U/L Total Protein 5.5 L (6.3-8.2) g/dL Albumin 2.7 L (3.5-5.0) g/dL 12/29/21 Range/Units 05:57 WBC (3.8-10.6) k/uL RBC (3.80-5.40) m/uL Hgb (11.4-16.0) gm/dL Hct (34.0-46.0) % RDW (11.5-15.5) % Neutrophils # (1.3-7.7) k/uL ABG pH (7.35-7.45) ABG pO2 (83-108) mmHg ABG HCO3 (21-25) mmol/L ABG Total CO2 (19-24) mmol/L Sodium (137-145) mmol/L BUN (7-17) mg/dL Glucose (74-99) mg/dL POC Glucose (mg/dL) 148 H (75-99) mg/dL Calcium (8.4-10.2) mg/dL AST (14-36) U/L Total Protein (6.3-8.2) g/dL Albumin (3.5-5.0) g/dL Microbiology - Last 24 Hours (Table) 12/26/21 12:30 Gram Stain - Final Sputum Sputum Culture - Final - Imaging and Cardiology Chest x-ray: image reviewed Assessment and Plan Assessment: 1. Coronary artery disease with left main disease, status post three-vessel CABG 2. History of hypertension, currently hypotensive on levo 3. Current tobacco dependence 4. Mild COPD, preoperative FEV1 was 73% of predicted 5. Daily EtOH use (1 pint per day of liquor) 6. Occasional marijuana and cocaine use (UDS was positive for cocaine on admission) 7. Hepatitis C 8. CVA 20 years ago 9. Solitary kidney. 10. Postoperative acute blood loss anemia and thrombocytopenia, expected 11. Suspected alcohol/drug withdrawal with thoracoabdominal dyssynchrony breathing pattern, reintubated per Dr. Thornton Plan: 1. Continue aspirin, statin, Plavix, beta briana therapy. Will increase beta briana therapy as tolerated. Continue Norvasc 2. Mechanical ventilator, bronchodilators per pulmonology. Wean from mechanical ventilator as tolerated 3. Will monitor daily labs and x-rays. Electrolyte replacement per protocol. No further transfusion 4. GI/DVT prophylaxis 5. Pain control current medication regimen 6. CIWA protocol 7. Insulin management per primary care services. Patient is not diabetic, preoperative hemoglobin A1c 5.4% 8. Patient counseled preoperatively and will continue to be counseled throughout her stay that she should refrain from smoking, drinking, using illicit drugs 9. Continue Young catheter for another 24 hours for strict accurate intake and output. Daily weights 10. More recommendations to follow
--- NOTE | 2021-12-29 08:20 | XR ---
EXAMINATION TYPE: XR chest 1V portable DATE OF EXAM: 12/29/2021 COMPARISON: X-ray dated 01/01/2022 HISTORY: Tube placement TECHNIQUE: Single frontal view of the chest is obtained. FINDINGS: Stable position of the endotracheal tube, NG tube and left subclavian line. No progressive pulmonary consolidation. Unchanged cardiomediastinal silhouette, sternotomy wire sutures, cardiac prosthesis an d aortic atherosclerotic calcifications. IMPRESSION: No significant interval change.
[2021-12-29] MEDS: ASPIRIN 81 MG PO SCH (09:00)
[2021-12-29] MEDS: CLOPIDOGREL 75 MG TAB PO SCH (09:00)
[2021-12-29] MEDS: PANTOPRAZOLE 40 MG/10 ML VIAL IVP SCH (09:00)
[2021-12-29] MEDS: MULTIVITAMINS, THERA 1 EACH TAB PO SCH (09:00)
[2021-12-29] MEDS: METOPROLOL TARTRATE 50 MG TAB PO SCH ×2 (09:00→21:00)
[2021-12-29] MEDS: HEPARIN SODIUM,PORCINE/PF 5,000 UNIT/0.5 ML SYRINGE SQ SCH ×3 (09:00→23:59)
[2021-12-29] MEDS: ATORVASTATIN 40 MG TAB PO SCH (09:00)
[2021-12-29] MEDS: CHLORHEXIDINE GLUCONATE 15 ML CUP MUCOUS MEM SCH ×2 (09:00→21:00)
[2021-12-29] MEDS: FLUoxetine HCL 20 MG CAP PO SCH (09:01)
--- NOTE | 2021-12-29 09:58 | P.PN ---
Subjective Progress Note Date: 12/29/21 This is a 66-year-old -[place] female patient of Dr. Allan with past medical history of hypertension, hyperlipidemia, CVA, single kidney with right nephrectomy, history of hepatitis C, COPD, current tobacco dependence, depression, daily EtOH use, occasional marijuana and cocaine use. Patient had recently been complaining of chest pain and shortness of breath for 2 months, she was seen by cardiology, she follows with Dr. Hutchison, she underwent stress testing which was abnormal and subsequently she had a heart catheterization that demonstrated 85% left main disease, totally occluded RCA with collateral from the left side, proximal LAD stenosis of 95%, mid LAD stenosis of a 50% with distal LAD stenosis of 70%, and circumflex with mild disease of 30-40%. Due to these findings patient was referred to cardiothoracic surgery for surgical revascularization. Transthoracic echocardiogram from 12/09/2021 showed preserved LV function with ejection fraction of 55-60%, mildly increased septal wall thickness and posterior wall thickness. There was mild mitral regurg, aortic valve was structurally normal without significant sclerosis or stenosis or aortic regurgitation, pulmonary artery systolic pressure was normal, there was trace tricuspid regurg. Bedside PFT showed FEV1 of 1.68 L or 73% of predicted, FVC of 2.04, or 68% of predicted, and FEV1 to FEC ratio of 107%, MCV of 63, and this was consistent with mild restrictive pulmonary physiology. Today on 12/21/2021 patient presented to the hospital, and underwent three- vessel coronary artery bypass surgery with DE LA CRUZ to the LAD, SVG to the OM, SVG to the PDA,, left atrial appendage exclusion with 35 mm Atriclip, intraoperative CHAD, and appendectomy aortic scanning. Patient has known history of substance abuse, and her urine drug screen the day of surgery on 12/21/2021 was positive for benzodiazepines and cocaine. We seen the patient in the postoperative period in the ICU, patient is still sedated and intubated, on assist-control mode with a rate of 12, tidal lamberts 400, FiO2 of 100% and PEEP of 5, postoperative blood gas shows pO2 156, pCO2 51, and pH of 7.30 and this was done on the above-mentioned ventilator settings and FiO2 had since been dropped down to 80%. Chest x-ray showing ET tube 2 cm above the henrry, right internal jugular [place]amela in place, bilateral pleural and mediastinal chest tubes in place. No pneumothorax. Patient is in sinus mechanism with a rate of 71, blood pressure is 148/63, PA pressures 33/16, CVP 7-8, cardiac output is 3.6, and cardiac index is 2.0. With SVR of 1400. Currently patient is on lactated Ringer's at 50 ML per hour, insulin is at 0.5 units per hour, nitroglycerin is up 5 mics per kilo per minute, and milrinone is at 0.3 mics per kilo per minute. Right and left pleural chest tubes connected together, and mediastinal chest tube with minimal sanguinous output. No air leak noted. Young catheter is in place, patient is producing 50-65 ML per hour. On 12/22/2021 patient seen in follow-up in intensive care unit, she is waking up, she remains intubated on mechanical ventilator, on assist-control with a rate of 12, tidal volume was 400, FiO2 of 60% and PEEP of 5. This point his blood gas showed pO2 of 68, pCO2 of 43, and pH of 7.39, and this was done on those above-mentioned ventilator settings, patient has since been placed on pressure support of 5 and CPAP of 5 with FiO2 of 50%. She is doing good, she is opening eyes to voice, follows simple commands, appears to be in no acute distress, hemodynamically she is been stable, she is in sinus mechanism with a rate of 90 BPM, she remains on small amount of milrinone at 0.1 cameron per kilo per minute, she is on lactated Ringer's at 50 ML per hour, norepinephrine at 0.08 units per kilo per minute, Cleviprex and nitroglycerin infusions have been discontinued. Today's chest x-ray has been reviewed showing scattered bibasilar infiltrates likely related to atelectasis. PA pressure is 36/17, CVP is 9, cardiac output is 4.8, and cardiac index is 2.7. This morning's labs have been reviewed showing globin of 5.9, white blood cell count of 6.4, platelet count of 99, sodium is 138, potassium is 4.2, chloride is 108, BUN is 15, creatinine is 1.05. Patient was transfused with 1 unit of packed red blood cells, repeat labs from this morning show hemoglobin if 6.6, and patient will receive another unit of packed red blood cells. Patient has a mediastinal chest tube in place and 1 left pleural and one right pleural white connected together, and pleural chest tubes put out 650 mL of serosanguineous output in the last 24 hours, and there is been 300 mL of serous and was output from the mediastinal chest tube. Remains on cefazolin for prophylactic antibiotic coverage. Patient has been started on aspirin, Lipitor, Plavix, she is on subcu heparin, metoprolol 12.5 mg twice daily, Protonix for GI prophylaxis. She is on Ativan per CIWA protocol, and thiamine replacements. Patient's weaning parameters and blood gas following spontaneous breathing trials were satisfactory, and spontaneous tidal volumes were 375, respiratory rate was 20, minute ventilation was 7.35 L/m, R SBI was 60, and this was -25, and we were unable to obtain vital. Blood gas was satisfactory with pO2 of 112, pCO2 44, and pH of 7.38 on pressure-support of 5 and CPAP of 5 and FiO2 of 50%. Patient looks comfortable, and she had a positive cuff week as well. She was extubated and tolerating extubation well. Midsternal incision is clean dry and intact, chest tube sites are clean dry and intact, left leg and the right leg Tad wrap. On 12/23/2021 patient seen in follow-up in intensive care unit, today is postoperative day #2, status post three-vessel coronary artery bypass grafting. She was successfully weaned and extubated yesterday on 12/22/2021, however in the evening she developed respiratory difficulty, hypoxia and required to go on BiPAP support with pressures of 12 and 5 and FiO2 of 100%, which was then weaned down to 50%. Her chest x-ray at 1720 last night showed bilateral chest tubes without evidence of pneumothorax, layering bilateral pleural effusions with associated subsegmental atelectasis, and coronary vascular congestion with cardiomegaly. Patient received one-time dose of IV Lasix she has produced 2.9 L in the urine output over the last 24 hours, however still remains in positive fluid balance of 769 mL over last 24 hours, her right and left pleural chest tubes have been by CT surgery last night, and right-sided pleural chest tube has put out 400 mL of bright red blood overnight, left pleural chest tube only put out 25 mL, and mediastinal chest tube 150 the last 24 hours. Patient received 3 units of packed red blood cells yesterday, his labs have been reviewed, hemoglobin is 8.2, white count is 11.1, platelet count is 75. Sodium is 138, potassium 3.8, chloride is 109, BUN is 13, creatinine 0.84. Hemodynamically patient is improved, her norepinephrine drip has been off since yesterday afternoon, milrinone drip has been discontinued this morning, she remains on Vicodin Ringer's at 50 ML per hour, and insulin at 2 units per hour, she is currently awake and alert, she is on 15 L per high flow nasal cannula, sitting up in a recliner, her incentive spirometer effort is suboptimal, patient is achieving about 500 to sometimes 700 mL on the incentive spirometer, lung sounds are diminished, poor inspiratory effort, there are scattered diffuse crackles throughout. Today's chest x-ray shows continued bilateral patchy opacities throughout both but improving aeration in the lower lungs, bilateral pleural chest tubes in place, no appreciable pneumothorax. PA pressure is 35/13, CVP is 7, cardiac output is 5.4, cardiac index 3.1. Patient states her pain is tolerable, she rates it 7 out of 10, and it is in the anterior sternum incisional area. Patient is tolerating sips of clear liquids. Diet has been ordered for her this morning. The patient is seen today 12/24/2021 in follow-up in the intensive care unit. Postoperative day #3 of the three-vessel coronary artery bypass surgery. She is currently sitting up in a chair at the bedside. Awake and alert in no acute distress. Maintaining O2 saturations in the 90s on 6 L high flow nasal cannula. Bilateral end mediastinal chest tubes remain in place. Chest x-ray reveals no evidence of pneumothorax. Persistent mild cardiomegaly with bilateral multifocal edema/infiltrate. No significant change compared to yesterday. She is pulling only about 500 ML's on her incentive spirometer at this morning. She did not utilize BiPAP last night. She remains on lactated Ringer's at 40 miles per hour. Insulin drip at 1 unit per hour. She is status post 3 units of packed red blood cells this admission. White count 10.6. Hemoglobin 8.1. Platelet count 81,000. Sodium 133. Potassium 4.2. BUN 12. Creatinine 0.69. Glucose 127. AST 56. ALT 13. CVP is 7. Cardiac output 4.8. Cardiac index 2.7. Blood pressure stable. Pacer wires in place. Remains in a -500 ML balance. Continued on DuoNeb inhalations. The patient is seen today 12/25/2021 in follow-up in the intensive care unit. This is postoperative day #4. She is currently resting comfortably in bed. Awake and alert in no acute distress. Chest tubes have been removed. She is maintaining O2 saturations in the 90s on 4 L/m per nasal cannula. Chest lactated Ringer's running at 30 MLS per hour. She is continuing to work with the incentive spirometer. Chest x-ray reveals some mild pulmonary edema. Stable cardiomegaly. No evidence of pneumothorax. She is status post 3 units of packed red blood cells this admission. Current hemoglobin 8.7. Platelets 118. White count 6.3. Sodium 134. Potassium 4.1. Bicarb 22. BUN 12. Creatinine 0.61. Glucose 18. AST 54, ALT 14. Initiated on Arixtra. The patient is seen today 12/26/2021 in follow-up in the intensive care unit. This is postoperative day #5. This morning the patient became quite restless and agitated. Trying to climb out of bed. She required Ativan and Haldol throughout the night. Suspecting alcohol and possible drug withdrawal. She was initiated on Precedex at 0.6 mg/kg per hour. Her oxygen requirements were gradually increasing up to 10 L high flow nasal cannula. Chest x-ray revealed moderate pulmonary vascular congestion and interstitial edema. She was given Lasix 40 mg IVP 1. She was diaphoretic. She was tachypneic with thoracoa bdominal dyssynchrony in her breathing pattern. Blood gases revealed a PaO2 of 66, pCO2 of 34 and a pH of 7.48. She is subsequently required intubation and mechanical ventilatory support at approximately 10 AM. She is currently on assist control mode with tidal volume of 400, respiratory rate of 24, FiO2 100% and a PEEP of 5. Follow-up arterial blood gases revealed a pO2 of 309, pCO2 32 and a PH of 7.52. FiO2 was decreased to 50% and rate was decreased to 20. Left internal jugular triple-lumen catheter and right femoral arterial lines were placed. She is currently on propofol at 20 mcg/kg/m. White count 6.5. Hemoglobin 7.5. Platelets 161. Sodium 133. Potassium 3.6. Chloride 103. BUN 11. Creatinine 0.63. Glucose 153. AST 41. ALT 14. She is currently in a -2 L balance. She remains hemodynamically stable. 12/27/2021, the patient is intubated on a mechanical ventilator. Events from yesterday was noted as the patient had to be reintubated and placed on a mechanical ventilator for multiple reasons was significant of which was her altered mentation and her ongoing signs of alcohol withdrawal and delirium. This morning, the patient is on propofol running at extremely 5 mcg/kg per minute and the patient is calm and comfortable. Precedex was discontinued yesterday. She is an assist-control mode of mechanical ventilation at the rate of 1220 with a tidal volume of 400 and FiO2 of 40% with a PEEP of 5. The chest x-ray from today is showing cardiomegaly. ET tube is in a good location for now. The patient has bilateral pleural effusions, stable compared to yesterday. The patient also has a left subclavian triple-lumen catheter in place. Sternal wires are also in place and there are obvious changes related to thoracotomy. The blood gases from today showed a pH of 7.48 with a pCO2 of 33 and pO2 of 87 and the peak airway pressure is around 19. Hemodynamically, the patient is on KVO IV fluids and the patient is on no pressors. She'll be started on enteral feeding for nutritional support. Cardiac rhythm is sinus. Rest of the blood work shows a white cell count of 9 with a hemoglobin of 7.5 and a platelet count of 247 and the electrolytes all within normal limits, blood sugar is at 107 and the patient's low potassium level which was at 3.2 is being replenished. LFTs are normal. Magnesium is also being replaced. This surgical wound sites of dry clean and intact. All of the chest tubes have been discontinued since surgery. 12/28/2021, the patient remains intubated on a mechanical ventilator. A sedation holiday will be given to her today. She remains on propofol running at 50 mcg/kg per minute. No Precedex is running at this point in time. While on the mechanical ventilator, she is quite synchronous and comfortable. She is an assist-control at the rate of 20 with a tidal volume of 375 with an FiO2 of 40% and PEEP of 5. The blood gas showed a pH of 7.5 with a pCO2 of 32 and pO2 of 60. Chest x-ray shows adequate expansion of both lungs. Chest tubes are removed. ET tube is in a good location. There is evidence of pulmonary vessel congestion and cardiomegaly and based on that the cardiothoracic team opted to give her a dose of Lasix. ET tube is in adequate location for now. No evidence of any pneumothorax. The patient has a left subclavian triple-lumen catheter in place. Otherwise, no seizure activity. A sedation holiday will be given to her today. She was started on Seroquel regarding her ongoing delirium and she received a dose of 100 mg overnight. On today's blood work, the white cell count of 14.1 with a hemoglobin of 7.6 and the rest of the electrodes are normal and the potassium is to be replaced at 3.3, BUN is at 14 with a creatinine of 0.7. Afebrile. She is on no antibiotics for now. Producing adequate amount of urine output. Fluid balance has been -1.4 L over the past 24 hours. [facility] ie is receiving enteral feeding in the form of Vital HP @ rate of 30 12/29/2021, the patient remains sedated with propofol and the patient is currently on 45 mcg/kg per minute. She was given a sedation holiday. I was informed by the nursing staff that the patient was quite agitated. Although at times she was following commands. She was not adequate enough to be considered for extubation as the patient was significantly agitated and the patient was placed back on propofol. As mentioned, she was also started on Seroquel overnight at a dose of 100 mg. This morning, she is well sedated and she is comfortable. She is an assist-control mode at the rate of 20 tidal volume of 375 FiO2 of 40% with a PEEP of 5. Chest x-ray shows no interval changes along with cardiomegaly and some atelectatic changes in lung bases. There is copious amount of yellowish to greenish rest or secretions being suctioned out of the orotracheal tube. This is purulent. She does have a low-grade fever. She had a temperature 100.0 today. She is on no antibiotic coverage for now. Meanwhile, the blood work from today shows a white cell count of 12.7 with a hemoglobin of 7.3 and a pro-calcitonin level was sent out. The blood gas showed a pH of 7.51 with a pCO2 of 36 and pO2 of 68. BUN is at 21 with a creatinine of 0.6 and the sodium level is at 135. She is currently on vital high protein at the rate of 39 mL an hour. Fluid balance over the past 24 hours has been in the order of -426 mL. All of the chest tubes are out. Urine output is adequate. Sternum stable clean and intact. The patient has a triple-lumen catheter in the left subclavian. Objective - Vital Signs Vital signs: Vital Signs Temp 100 F H 12/29/21 08:00 Pulse 99 12/29/21 09:00 Resp 28 H 12/29/21 09:00 BP 128/72 12/29/21 09:00 Pulse Ox 92 L 12/29/21 09:00 FiO2 40 12/29/21 08:00 Intake & Output 12/28/21 12/29/21 12/29/21 18:59 06:59 18:59 Intake Total 1018.102 955.480 339.52 Output Total 1485 915 125 Balance -466.898 40.480 214.52 Weight 74.79 kg Intake: IV 276 299 46 0.9 @ 20 240 260 40 Pressure Bag 36 39 6 Intake, IV Titration 272.102 136.480 63.52 Amount propofoL 1,000 mg In 272.102 136.480 63.52 Empty Bag 1 bag @ 5 MCG/ KG/MIN 2.28 mls/hr IV . Q24H [facility] Rx#:[id number] Tube Feeding 410 520 80 Other 60 150 Output: Urine 1485 915 125 Other: Voiding Method Indwelling Catheter Indwelling Catheter Indwelling Catheter ABP, PAP, CO, CI - Last Documented Arterial Blood Pressure 139/53 Pulmonary Artery Pressure 34/8 Cardiac Output 4.8 Cardiac Index 2.7 - Exam GENERAL EXAM: Intubated, sedated 66-year-old female patient, comfortable in no apparent distress. HEAD: Normocephalic/atraumatic. EYES: Normal reaction of pupils, equal size. Conjunctiva pink, sclera white. NOSE: Clear with pink turbinates. THROAT: No erythema or exudates. NECK: No masses, no JVD, no thyroid enlargement, no adenopathy. Left internal jugular triple-lumen catheter in place. CHEST: Heart hugger in place Symmetrical expansion. Midsternal incision is susan an dry and intact, chest tubes removed LUNGS: Equal air entry with no crackles, wheeze, rhonchi or dullness. CVS: Regular rate and rhythm, normal S1 and S2, no gallops, no murmurs, no rubs ABDOMEN: Soft, nontender. No hepatosplenomegaly, normal bowel sounds, no guarding or rigidity. EXTREMITIES: Right femoral arterial line in place. No clubbing, no edema, no cyanosis, 2+ pulses and upper and lower extremities. MUSCULOSKELETAL: Muscle strength and tone normal. SPINE: No scoliosis or deformity SKIN: No rashes, left leg interrupted incision covered with Tad wrap - Labs CBC & Chem 7: 12/29/21 05:06 12/29/21 05:06 Labs: Abnormal Lab Results - Last 24 Hours (Table) 12/28/21 12/28/21 12/28/21 Range/Units 11:30 18:06 23:55 WBC (3.8-10.6) k/uL RBC (3.80-5.40) m/uL Hgb (11.4-16.0) gm/dL Hct (34.0-46.0) % RDW (11.5-15.5) % Neutrophils # (1.3-7.7) k/uL ABG pH (7.35-7.45) ABG pO2 (83-108) mmHg ABG HCO3 (21-25) mmol/L ABG Total CO2 (19-24) mmol/L Sodium (137-145) mmol/L BUN (7-17) mg/dL Glucose (74-99) mg/dL POC Glucose (mg/dL) 127 H 131 H 156 H (75-99) mg/dL Calcium (8.4-10.2) mg/dL AST (14-36) U/L Total Protein (6.3-8.2) g/dL Albumin (3.5-5.0) g/dL 12/29/21 12/29/21 12/29/21 Range/Units 05:06 05:06 05:22 WBC 12.7 H (3.8-10.6) k/uL RBC 2.67 L (3.80-5.40) m/uL Hgb 7.3 L (11.4-16.0) gm/dL Hct 23.1 L (34.0-46.0) % RDW 15.9 H (11.5-15.5) % Neutrophils # 10.3 H (1.3-7.7) k/uL ABG pH 7.51 H (7.35-7.45) ABG pO2 68 L (83-108) mmHg ABG HCO3 28 H (21-25) mmol/L ABG Total CO2 29 H (19-24) mmol/L Sodium 135 L (137-145) mmol/L BUN 21 H (7-17) mg/dL Glucose 136 H (74-99) mg/dL POC Glucose (mg/dL) (75-99) mg/dL Calcium 8.0 L (8.4-10.2) mg/dL AST 69 H (14-36) U/L Total Protein 5.5 L (6.3-8.2) g/dL Albumin 2.7 L (3.5-5.0) g/dL 12/29/21 Range/Units 05:57 WBC (3.8-10.6) k/uL RBC (3.80-5.40) m/uL Hgb (11.4-16.0) gm/dL Hct (34.0-46.0) % RDW (11.5-15.5) % Neutrophils # (1.3-7.7) k/uL ABG pH (7.35-7.45) ABG pO2 (83-108) mmHg ABG HCO3 (21-25) mmol/L ABG Total CO2 (19-24) mmol/L Sodium (137-145) mmol/L BUN (7-17) mg/dL Glucose (74-99) mg/dL POC Glucose (mg/dL) 148 H (75-99) mg/dL Calcium (8.4-10.2) mg/dL AST (14-36) U/L Total Protein (6.3-8.2) g/dL Albumin (3.5-5.0) g/dL Microbiology - Last 24 Hours (Table) 12/26/21 12:30 Gram Stain - Final Sputum Sputum Culture - Final Assessment and Plan Plan: 1 Symptomatic multivessel coronary artery disease, status post three-vessel coronary artery bypass grafting with DE LA CRUZ to LAD, SVG to the OM, SVG to the PDA, left atrial appendage exclusion with 35 mm Atriclip on 12/21/2021 2 Routine postoperative ventilator management, patient was successfully weaned and extubated on 12/22/2021. However, on 12/26/2021 the patient developed suspected acute alcohol/drug withdrawal and thoracoabdominal dyssynchrony breathing pattern requiring reintubation and placed back on mechanical ventilator. The patient has been adequately ventilated at this point in time. The patient is also on sedation and patient is currently on propofol . Repeat chest x-ray from today shows a component of pulmonary edema/four-vessel congestion and the patient is being diuresis. The same time the blood gases showing a component of respiratory alkalosis. I am concerned of an infection, probably a ventilator associated infection/pneumonia as the patient's is producing copious amount of rest or secretions or purulent and the patient has a low-grade fever. Sternum stable clean and intact. No significant leukocytosis. 3 Acute blood loss anemia, an expected outcome of sternotomy, and bypass surgery, requiring transfusion with blood products, patient has received 3 units of packed red blood cells, current hemoglobin 7.3 4 History of substance abuse including cocaine, EtOH, and marijuana. Urine drug screen on the day of surgery on 12/21/2021 is positive for cocaine and benzodiazepines, currently on propofol running at 45 mcg/kg per minute and the patient is still arousable although comfortable synchronous with the mechanical ventilator. 5 History of single kidney, with history of nephrectomy 6 Chronic and ongoing tobacco dependence 7 History of CVA 8 Hypertension 9 Hyperlipidemia 10 History of COPD 11 Depression 12 History of hepatitis C Plan: Continue ventilator support, no changes Sputu,m culture Procal IV cefepime 2 gr q 12 Sedation holiday Continue Seroquel 100 mg at bedtime enteral feeding for nutritional support Hemodynamically stable Lines overall inserted We'll continue working with the cardiothoracic team regarding her care and she may be potentially a difficult extubation because of her underlying comorbidities. We'll continue to follow. Critical care evaluation that was done and more than 30 minutes. T Time with Patient: Greater than 30
[2021-12-29] MEDS: CEFEPIME 2 GM in SODIUM CHLORIDE 0.9% 100 ML IVPB SCH ×2 (10:19→18:16)
[2021-12-29 11:18] LABS: Glucose,Whole Blood 146 mg/dL (75-99)
[2021-12-29] MEDS: amLODIPine 10 MG TAB PO SCH (11:46)
[2021-12-29] MEDS: DEXMEDETOMIDINE/0.9% NACL(PMX) 400 MCG in EMPTY BAG 1 BAG IV SCH ×3 (15:06→23:49)
[2021-12-29] MEDS: HYDROmorphone 1 MG/ML 1 ML SYRINGE IVP PRN ×2 (15:07→20:46)
[2021-12-29 17:51] LABS: Glucose,Whole Blood 147 mg/dL (75-99)
[2021-12-29] MEDS: QUEtiapine 100 MG TAB PO SCH (21:00)
[2021-12-29] MEDS: SENNOSIDES-DOCUSATE SODIUM 1 EACH TAB PO SCH (21:02)
[2021-12-29] MEDS: LORazepam 2 MG/ML INJ IV PRN (22:07)
[2021-12-29 23:45] LABS: Glucose,Whole Blood 162 mg/dL (75-99)
[2021-12-30] MEDS: IPRATROPIUM-ALBUTEROL 3 ML NEB INHALATION SCH ×7 (00:36→23:40)
[2021-12-30] MEDS: CEFEPIME 2 GM in SODIUM CHLORIDE 0.9% 100 ML IVPB SCH ×3 (01:25→18:20)
[2021-12-30] MEDS: HYDROmorphone 1 MG/ML 1 ML SYRINGE IVP PRN ×6 (02:22→20:48)
[2021-12-30] MEDS: DEXMEDETOMIDINE/0.9% NACL(PMX) 400 MCG in EMPTY BAG 1 BAG IV SCH ×4 (04:16→22:07)
[2021-12-30 05:29] LABS: Glucose,Whole Blood 212 mg/dL (75-99)
[2021-12-30] MEDS: INSULIN ASPART (NovoLOG) 100 UNIT/ML VIAL SQ SCH ×4 (05:32→23:04)
[2021-12-30] MEDS ORDERED: POTASSIUM BICARBONATE/CIT AC 20 MEQ TABLET.EFF NG-TUBE SCH (06:00)
[2021-12-30 06:13] LABS: ABG Base Excess 1.8 mmol/L; ABG HCO3 25 mmol/L (21-25); ABG PCO2 34 mmHg (35-45); ABG PH 7.48 (7.35-7.45); ABG PO2 66 mmHg (83-108); ABG TCO2 26 mmol/L (19-24); Allen Test Performed? Yes
[2021-12-30] MEDS: THIAMINE 100 MG TAB PO SCH ×2 (06:31→16:52)
[2021-12-30 06:42] LABS: Basophils % (A) 0 %; Eosinophils # (A) 0.2 k/uL (0-0.7); Eosinophils % (A) 1 %; HCT 22.2 % (34.0-46.0); Hypochromasia Moderate; Lymphocytes # (A) 1.5 k/uL (1.0-4.8); Lymphocytes % (A) 10 %; MCH 26.2 pg (25.0-35.0); MCHC 30.1 g/dL (31.0-37.0); MCV 87.2 fL (80.0-100.0); Mean Platelet Volume 9.1; Monocytes % (A) 6 %; Neutrophils % (A) 80 %; Platelet Count 459 k/uL (150-450); Poikilocytosis Slight; RBC 2.55 m/uL (3.80-5.40); RDW 15.8 % (11.5-15.5); WBC 15.1 k/uL (3.8-10.6)
[2021-12-30 06:53] LABS: HGB 6.7 gm/dL (11.4-16.0)
[2021-12-30 07:14] LABS: ALT 36 U/L (4-34); AST 74 U/L (14-36); African American GFR (CKD) >90 (>60 ml/min/1.73 sqM); Albumin 2.5 g/dL (3.5-5.0); Alkaline Phosphatase 52 U/L (38-126); Anion Gap 4 mmol/L; Blood Urea Nitrogen 17 mg/dL (7-17); Carbon Dioxide 26 mmol/L (22-30); Chloride 106 mmol/L (98-107); Glucose 160 mg/dL (74-99); Non-African American GFR(CKD) >90 (>60 ml/min/1.73 sqM); Potassium 3.6 mmol/L (3.5-5.1); Sodium 136 mmol/L (137-145); Total Bilirubin 1.2 mg/dL (0.2-1.3); Total Protein 5.3 g/dL (6.3-8.2)
--- NOTE | 2021-12-30 07:41 | P.PN ---
Subjective Progress Note Date: 12/30/21 Principal diagnosis: Coronary artery disease with left main disease. Past medical history significant for hypertension, current ongoing tobacco dependence with mild COPD, daily EtOH use (1 pint per day of liquor), occasional marijuana and cocaine use (UDS was positive for cocaine on admission), hepatitis C, CVA 20 years ago, and solitary kidney. POD #9 coronary artery bypass grafting 3 vessels, left internal mammary artery to the left anterior descending artery, a reverse saphenous vein graft to the obtuse marginal coronary artery, a reverse saphenous vein graft to the posterior descending coronary artery, endoscopic harvesting of the left greater saphenous vein, ligation of the left atrial appendage using a 35 mm AtriClip, epi-aortic ultrasound and intraoperative transesophageal echocardiogram Postoperative acute blood loss anemia and thrombocytopenia, expected given hemodilution and cardiopulmonary bypass pump. Suspected alcohol/drug withdrawal with thoracoabdominal dyssynchrony breathing pattern, reintubated per Dr. Thornton. The patient was seen and examined today 12/30/2021 at her bedside in the intensive care unit. She remains intubated with mechanical ventilator support and is currently sedated on Precedex drip. She is not following any verbal comm ands at this time, although her nurse from last night reports that she has had some episodes of restlessness and was following some simple verbal commands. Bedside telemetry showing normal sinus rhythm heart rate 75 BPM. Oxygen saturation are 96% on current mechanical ventilator settings with an assist control 20, TV 375, FiO2 40% and a PEEP of 5. T-max temperature in the last 24 hours is 100.2F, she was started on cefepime 2 g IV piggyback every 8 hours yesterday by pulmonary/critical care medicine. She remained hemodynamically stable and is currently on no inotropic or pressor support. Laboratory and chest x-ray results reviewed. Laboratory results this morning show a WBC count of 15.1, hemoglobin 6.7, hematocrit 22.2, platelets 459, sodium 136, potassium 3.6, BUN 17, creatinine 0.67, calcium 2.0, magnesium 2.0, AST 74 and ALT 36. ABG results this morning show a pH of 7.48, pCO2 34, pO2 66, HCO3 25, oxygen saturation 94% and base excess 1.8. OG tube remains in place with vital high- protein to feeding infusing at 40 mL per hour with automatic water flushes of 30 mL every 4 hours. Objective - Vital Signs Vital signs: Vital Signs Temp 99.3 F 12/30/21 04:00 Pulse 77 12/30/21 07:00 Resp 34 H 12/30/21 07:00 BP 111/62 12/30/21 07:00 Pulse Ox 96 12/30/21 07:00 FiO2 40 12/30/21 04:45 Intake & Output 12/29/21 12/30/21 12/30/21 18:59 06:59 18:59 Intake Total 6221.543 3093.611 63 Output Total 685 695 50 Balance 520.003 479.611 13 Weight 74.79 kg 72.2 kg Intake: IV 253 276 23 0.9 @ 20 220 240 20 Pressure Bag 33 36 3 Intake, IV Titration 222.003 328.611 Amount Cefepime 2 gm In Sodium 100 Chloride 0.9% 100 ml @ 25 mls/hr IVPB Q8H [facility] Rx#: [id number] Dexmedetomidine/0.9% NaCl 32.035 228.611 (Pmx) 400 mcg In Empty Bag 1 bag @ 0.2 MCG/KG/HR 3.74 mls/hr IV .Q24H [facility] Rx#:[id number] propofoL 1,000 mg In 189.968 Empty Bag 1 bag @ 5 MCG/ KG/MIN 2.28 mls/hr IV . Q24H [facility] Rx#:[id number] Tube Feeding 440 480 40 Other 290 90 Output: Urine 685 695 50 Other: Voiding Method Indwelling Catheter Indwelling Catheter # Bowel Movements 1 ABP, PAP, CO, CI - Last Documented Arterial Blood Pressure 117/48 Pulmonary Artery Pressure 34/8 Cardiac Output 4.8 Cardiac Index 2.7 - Exam CONSTITUTIONAL: Currently laying in bed in the intensive care unit. She is sedated with Precedex drip and remains intubated with mechanical ventilator support. RESPIRATORY: Lungs sounds diminished throughout bilaterally. Respirations are symmetrical, and nonlabored with mechanical ventilator support. Current mechanical ventilator settings are assist control 20, TV 375, FiO2 40% and a PEEP of 5. Oxygen saturation are 96% on current mechanical ventilator settings. ET tube in place at 23 cm at the lip. CARDIOVASCULAR: S1, S2 present. Regular rate and rhythm, sinus rhythm on telemetry, heart rate 75 BPM. Sternum stable. Palpable peripheral pulses bilaterally. No edema present. No calf pain or tenderness noted. Heart hugger, antiembolism stockings, SCDs present. GASTROINTESTINAL: Abdomen soft, nontender, nondistended. Active bowel sounds present 4 quadrants. No guarding or rigidity. OG tube in place with vital high-protein to feeding infusing at 40 mL per hour with automatic water flushes 30 mL every 4 hours. Bowel movement yesterday 12/29/2021. GENITOURINARY: Young catheter in place for accurate I's and O's. Urine output 520 mL in the last 8 hours. INTEGUMENTARY: Skin is warm and dry with evidence of clubbing or cyanosis. midline sternal chest incision well approximated and covered with dry intact dressing. Left lower extremity EVH site well approximated without redness or drainage. NEUROLOGIC: Currently sedated on Precedex drip, unable to accurately assess. INVASIVE LINES AND TUBES: A/V epicardial pacemaker wires present, and grounded. Left subclavian triple-lumen catheter and right femoral arterial line in place and functioning. - Allied health notes Allied health notes reviewed: nursing - Labs CBC & Chem 7: 12/30/21 04:25 12/30/21 04:25 Labs: Abnormal Lab Results - Last 24 Hours (Table) 12/29/21 12/29/21 12/29/21 Range/Units 05:06 11:16 17:40 WBC (3.8-10.6) k/uL RBC (3.80-5.40) m/uL Hgb (11.4-16.0) gm/dL Hct (34.0-46.0) % MCHC (31.0-37.0) g/dL RDW (11.5-15.5) % Plt Count (150-450) k/uL Neutrophils # (1.3-7.7) k/uL ABG pH (7.35-7.45) ABG pCO2 (35-45) mmHg ABG pO2 (83-108) mmHg ABG Total CO2 (19-24) mmol/L Sodium (137-145) mmol/L Glucose (74-99) mg/dL POC Glucose (mg/dL) 146 H 147 H (75-99) mg/dL Calcium (8.4-10.2) mg/dL AST (14-36) U/L ALT (4-34) U/L Total Protein (6.3-8.2) g/dL Albumin (3.5-5.0) g/dL Procalcitonin 0.40 H (0.02-0.09) ng/mL 12/29/21 12/30/21 12/30/21 Range/Units 23:43 04:25 04:25 WBC 15.1 H (3.8-10.6) k/uL RBC 2.55 L (3.80-5.40) m/uL Hgb 6.7 L* (11.4-16.0) gm/dL Hct 22.2 L (34.0-46.0) % MCHC 30.1 L (31.0-37.0) g/dL RDW 15.8 H (11.5-15.5) % Plt Count 459 H (150-450) k/uL Neutrophils # 12.0 H (1.3-7.7) k/uL ABG pH (7.35-7.45) ABG pCO2 (35-45) mmHg ABG pO2 (83-108) mmHg ABG Total CO2 (19-24) mmol/L Sodium 136 L (137-145) mmol/L Glucose 160 H (74-99) mg/dL POC Glucose (mg/dL) 162 H (75-99) mg/dL Calcium 8.0 L (8.4-10.2) mg/dL AST 74 H (14-36) U/L ALT 36 H (4-34) U/L Total Protein 5.3 L (6.3-8.2) g/dL Albumin 2.5 L (3.5-5.0) g/dL Procalcitonin (0.02-0.09) ng/mL 12/30/21 12/30/21 Range/Units 05:27 06:07 WBC (3.8-10.6) k/uL RBC (3.80-5.40) m/uL Hgb (11.4-16.0) gm/dL Hct (34.0-46.0) % MCHC (31.0-37.0) g/dL RDW (11.5-15.5) % Plt Count (150-450) k/uL Neutrophils # (1.3-7.7) k/uL ABG pH 7.48 H (7.35-7.45) ABG pCO2 34 L (35-45) mmHg ABG pO2 66 L (83-108) mmHg ABG Total CO2 26 H (19-24) mmol/L Sodium (137-145) mmol/L Glucose (74-99) mg/dL POC Glucose (mg/dL) 212 H (75-99) mg/dL Calcium (8.4-10.2) mg/dL AST (14-36) U/L ALT (4-34) U/L Total Protein (6.3-8.2) g/dL Albumin (3.5-5.0) g/dL Procalcitonin (0.02-0.09) ng/mL Microbiology - Last 24 Hours (Table) 12/29/21 21:00 Sputum Culture - Preliminary Sputum - Imaging and Cardiology Chest x-ray: report reviewed, image reviewed Assessment and Plan Assessment: 1. Coronary artery disease with left main disease, status post three-vessel CABG 2. History of hypertension 3. Current ongoing tobacco dependence 4. Mild COPD, preoperative FEV1 was 73% of predicted 5. Daily EtOH use (1 pint per day of liquor) 6. Occasional marijuana and cocaine use (UDS was positive for cocaine on admission) 7. Hepatitis C 8. CVA 20 years ago 9. Solitary kidney. 10. Postoperative acute blood loss anemia and thrombocytopenia, expected 11. Suspected alcohol/drug withdrawal with thoracoabdominal dyssynchrony breathing pattern, reintubated per Dr. Thornton Plan: 1. Continue aspirin, statin, Plavix, Norvasc, beta briana. Increase metoprolol tartrate as tolerated. 2. Mechanical ventilator, bronchodilators per pulmonary/critical care medicine. Mechanical ventilator weaning her Dr. Padilla's recommendations. 3. Precedex drip management per pulmonary/critical care medicine. 4. Will monitor daily labs and chest x-rays. Electrolyte replacement per protocol. 5. GI/DVT prophylaxis. 6. Pain control current medication regimen. 7. CIWA protocol. The patient was started on Seroquel 100 mg per OG tube daily at bedtime on 12/27/2021 by pulmonary critical care medicine. 8. Insulin management per primary care services. Patient is not diabetic, preoperative hemoglobin A1c 5.4%. 9. Patient counseled preoperatively and will continue to be counseled throughout her stay that she should refrain from smoking, drinking, using illicit drugs. 10. Keep Young catheter in place for accurate I's and O's, continue to record strict and accurate intake and output. Daily weights. 11. Lasix 40 mg IV 1 now and again at 4 PM today. Potassium chloride 20 mg by mouth twice a day 2 doses. 12. Keep atrial and ventricular epicardial pacemaker wires in place and grounded. 13. Keep OG tube in place with vital high-protein to feedings infusing per dietitian recommendations. 14. Cefepime IV antibiotic management per pulmonary/critical care service recommendations. 15. More recommendations to follow based on patient's clinical course. Time with Patient: Greater than 30
[2021-12-30] MEDS ORDERED: POTASSIUM CHLORIDE ER 20 MEQ TAB.ER PO SCH (08:00)
[2021-12-30] MEDS: FUROSEMIDE 10 MG/ML 4 ML VIAL IV SCH ×2 (08:31→16:51)
[2021-12-30] MEDS: HEPARIN SODIUM,PORCINE/PF 5,000 UNIT/0.5 ML SYRINGE SQ SCH ×3 (08:31→23:04)
[2021-12-30] MEDS: PANTOPRAZOLE 40 MG/10 ML VIAL IVP SCH (08:31)
[2021-12-30] MEDS: ATORVASTATIN 40 MG TAB PO SCH (08:32)
[2021-12-30] MEDS: MULTIVITAMINS, THERA 1 EACH TAB PO SCH (08:32)
[2021-12-30] MEDS: ASPIRIN 81 MG PO SCH (08:32)
[2021-12-30] MEDS: METOPROLOL TARTRATE 50 MG TAB PO SCH ×2 (08:32→20:45)
[2021-12-30] MEDS: CHLORHEXIDINE GLUCONATE 15 ML CUP MUCOUS MEM SCH ×2 (08:33→20:44)
[2021-12-30] MEDS: FLUoxetine HCL 20 MG CAP PO SCH (08:33)
[2021-12-30] MEDS: CLOPIDOGREL 75 MG TAB PO SCH (08:33)
[2021-12-30] MEDS ORDERED: VANCOMYCIN IV PER PHARMACY 1 EACH MISC MISCELLANE PRN (08:57)
--- NOTE | 2021-12-30 08:58 | XR ---
EXAMINATION TYPE: XR chest 1V portable DATE OF EXAM: 12/30/2021 COMPARISON: X-ray dated 12/29/2021 HISTORY: Tube placement TECHNIQUE: Single frontal view of the chest is obtained. FINDINGS: Unchanged position of the endotracheal tube, NG tube and left subclavian line. No progress joce pulmonary consolidation. Unchanged cardiomediastinal silhouette and bony thoracic cage. IMPRESSION: Stable condition.
--- NOTE | 2021-12-30 09:00 | P.PN ---
Subjective Progress Note Date: 12/30/21 This is a 66-year-old -[place] female patient of Dr. Allan with past medical history of hypertension, hyperlipidemia, CVA, single kidney with right nephrectomy, history of hepatitis C, COPD, current tobacco dependence, depression, daily EtOH use, occasional marijuana and cocaine use. Patient had recently been complaining of chest pain and shortness of breath for 2 months, she was seen by cardiology, she follows with Dr. Hutchison, she underwent stress testing which was abnormal and subsequently she had a heart catheterization that demonstrated 85% left main disease, totally occluded RCA with collateral from the left side, proximal LAD stenosis of 95%, mid LAD stenosis of a 50% with distal LAD stenosis of 70%, and circumflex with mild disease of 30-40%. Due to these findings patient was referred to cardiothoracic surgery for surgical revascularization. Transthoracic echocardiogram from 12/09/2021 showed preserved LV function with ejection fraction of 55-60%, mildly increased septal wall thickness and posterior wall thickness. There was mild mitral regurg, aortic valve was structurally normal without significant sclerosis or stenosis or aortic regurgitation, pulmonary artery systolic pressure was normal, there was trace tricuspid regurg. Bedside PFT showed FEV1 of 1.68 L or 73% of predicted, FVC of 2.04, or 68% of predicted, and FEV1 to FEC ratio of 107%, MCV of 63, and this was consistent with mild restrictive pulmonary physiology. Today on 12/21/2021 patient presented to the hospital, and underwent three- vessel coronary artery bypass surgery with DE LA CRUZ to the LAD, SVG to the OM, SVG to the PDA,, left atrial appendage exclusion with 35 mm Atriclip, intraoperative CHAD, and appendectomy aortic scanning. Patient has known history of substance abuse, and her urine drug screen the day of surgery on 12/21/2021 was positive for benzodiazepines and cocaine. We seen the patient in the postoperative period in the ICU, patient is still sedated and intubated, on assist-control mode with a rate of 12, tidal lamberts 400, FiO2 of 100% and PEEP of 5, postoperative blood gas shows pO2 156, pCO2 51, and pH of 7.30 and this was done on the above-mentioned ventilator settings and FiO2 had since been dropped down to 80%. Chest x-ray showing ET tube 2 cm above the henrry, right internal jugular [place] in place, bilateral pleural and mediastinal chest tubes in place. No pneumothorax. Patient is in sinus mechanism with a rate of 71, blood pressure is 148/63, PA pressures 33/16, CVP 7-8, cardiac output is 3.6, and cardiac index is 2.0. With SVR of 1400. Currently patient is on lactated Ringer's at 50 ML per hour, insulin is at 0.5 units per hour, nitroglycerin is up 5 mics per kilo per minute, and milrinone is at 0.3 mics per kilo per minute. Right and left pleural chest tubes connected together, and mediastinal chest tube with minimal sanguinous output. No air leak noted. Young catheter is in place, patient is producing 50-65 ML per hour. On 12/22/2021 patient seen in follow-up in intensive care unit, she is waking up, she remains intubated on mechanical ventilator, on assist-control with a rate of 12, tidal volume was 400, FiO2 of 60% and PEEP of 5. This point his blood gas showed pO2 of 68, pCO2 of 43, and pH of 7.39, and this was done on those above-mentioned ventilator settings, patient has since been placed on pressure support of 5 and CPAP of 5 with FiO2 of 50%. She is doing good, she is opening eyes to voice, follows simple commands, appears to be in no acute distress, hemodynamically she is been stable, she is in sinus mechanism with a rate of 90 BPM, she remains on small amount of milrinone at 0.1 cameron per kilo per minute, she is on lactated Ringer's at 50 ML per hour, norepinephrine at 0.08 units per kilo per minute, Cleviprex and nitroglycerin infusions have been discontinued. Today's chest x-ray has been reviewed showing scattered bibasilar infiltrates likely related to atelectasis. PA pressure is 36/17, CVP is 9, cardiac output is 4.8, and cardiac index is 2.7. This morning's labs have been reviewed showing globin of 5.9, white blood cell count of 6.4, platelet count of 99, sodium is 138, potassium is 4.2, chloride is 108, BUN is 15, creatinine is 1.05. Patient was transfused with 1 unit of packed red blood cells, repeat labs from this morning show hemoglobin if 6.6, and patient will receive another unit of packed red blood cells. Patient has a mediastinal chest tube in place and 1 left pleural and one right pleural white connected together, and pleural chest tubes put out 650 mL of serosanguineous output in the last 24 hours, and there is been 300 mL of serous and was output from the mediastinal chest tube. Remains on cefazolin for prophylactic antibiotic coverage. Patient has been started on aspirin, Lipitor, Plavix, she is on subcu heparin, metoprolol 12.5 mg twice daily, Protonix for GI prophylaxis. She is on Ativan per CIWA protocol, and thiamine replacements. Patient's weaning parameters and blood gas following spontaneous breathing trials were satisfactory, and spontaneous tidal volumes were 375, respiratory rate was 20, minute ventilation was 7.35 L/m, R SBI was 60, and this was -25, and we were unable to obtain vital. Blood gas was satisfactory with pO2 of 112, pCO2 44, and pH of 7.38 on pressure-support of 5 and CPAP of 5 and FiO2 of 50%. Patient looks comfortable, and she had a positive cuff week as well. She was extubated and tolerating extubation well. Midsternal incision is clean dry and intact, chest tube sites are clean dry and intact, left leg and the right leg Tad wrap. On 12/23/2021 patient seen in follow-up in intensive care unit, today is postoperative day #2, status post three-vessel coronary artery bypass grafting. She was successfully weaned and extubated yesterday on 12/22/2021, however in the evening she developed respiratory difficulty, hypoxia and required to go on BiPAP support with pressures of 12 and 5 and FiO2 of 100%, which was then weaned down to 50%. Her chest x-ray at 1720 last night showed bilateral chest tubes without evidence of pneumothorax, layering bilateral pleural effusions with associated subsegmental atelectasis, and coronary vascular congestion with cardiomegaly. Patient received one-time dose of IV Lasix she has produced 2.9 L in the urine output over the last 24 hours, however still remains in positive fluid balance of 769 mL over last 24 hours, her right and left pleural chest tubes have been by CT surgery last night, and right-sided pleural chest tube has put out 400 mL of bright red blood overnight, left pleural chest tube only put out 25 mL, and mediastinal chest tube 150 the last 24 hours. Patient received 3 units of packed red blood cells yesterday, his labs have been reviewed, hemoglobin is 8.2, white count is 11.1, platelet count is 75. Sodium is 138, potassium 3.8, chloride is 109, BUN is 13, creatinine 0.84. Hemodynamically patient is improved, her norepinephrine drip has been off since yesterday afternoon, milrinone drip has been discontinued this morning, she remains on Vicodin Ringer's at 50 ML per hour, and insulin at 2 units per hour, she is currently awake and alert, she is on 15 L per high flow nasal cannula, sitting up in a recliner, her incentive spirometer effort is suboptimal, patient is achieving about 500 to sometimes 700 mL on the incentive spirometer, lung sounds are diminished, poor inspiratory effort, there are scattered diffuse crackles throughout. Today's chest x-ray shows continued bilateral patchy opacities throughout both but improving aeration in the lower lungs, bilateral pleural chest tubes in place, no appreciable pneumothorax. PA pressure is 35/13, CVP is 7, cardiac output is 5.4, cardiac index 3.1. Patient states her pain is tolerable, she rates it 7 out of 10, and it is in the anterior sternum incisional area. Patient is tolerating sips of clear liquids. Diet has been ordered for her this morning. The patient is seen today 12/24/2021 in follow-up in the intensive care unit. Postoperative day #3 of the three-vessel coronary artery bypass surgery. She is currently sitting up in a chair at the bedside. Awake and alert in no acute distress. Maintaining O2 saturations in the 90s on 6 L high flow nasal cannula. Bilateral end mediastinal chest tubes remain in place. Chest x-ray reveals no evidence of pneumothorax. Persistent mild cardiomegaly with bilateral multifocal edema/infiltrate. No significant change compared to yesterday. She is pulling only about 500 ML's on her incentive spirometer at this morning. She did not utilize BiPAP last night. She remains on lactated Ringer's at 40 miles per hour. Insulin drip at 1 unit per hour. She is status post 3 units of packed red blood cells this admission. White count 10.6. Hemoglobin 8.1. Platelet count 81,000. Sodium 133. Potassium 4.2. BUN 12. Creatinine 0.69. Glucose 127. AST 56. ALT 13. CVP is 7. Cardiac output 4.8. Cardiac index 2.7. Blood pressure stable. Pacer wires in place. Remains in a -500 ML balance. Continued on DuoNeb inhalations. The patient is seen today 12/25/2021 in follow-up in the intensive care unit. This is postoperative day #4. She is currently resting comfortably in bed. Awake and alert in no acute distress. Chest tubes have been removed. She is maintaining O2 saturations in the 90s on 4 L/m per nasal cannula. Chest lactated Ringer's running at 30 MLS per hour. She is continuing to work with the incentive spirometer. Chest x-ray reveals some mild pulmonary edema. Stable cardiomegaly. No evidence of pneumothorax. She is status post 3 units of packed red blood cells this admission. Current hemoglobin 8.7. Platelets 118. White count 6.3. Sodium 134. Potassium 4.1. Bicarb 22. BUN 12. Creatinine 0.61. Glucose 18. AST 54, ALT 14. Initiated on Arixtra. The patient is seen today 12/26/2021 in follow-up in the intensive care unit. This is postoperative day #5. This morning the patient became quite restless and agitated. Trying to climb out of bed. She required Ativan and Haldol throughout the night. Suspecting alcohol and possible drug withdrawal. She was initiated on Precedex at 0.6 mg/kg per hour. Her oxygen requirements were gradually increasing up to 10 L high flow nasal cannula. Chest x-ray revealed moderate pulmonary vascular congestion and interstitial edema. She was given Lasix 40 mg IVP 1. She was diaphoretic. She was tachypneic with thoracoa bdominal dyssynchrony in her breathing pattern. Blood gases revealed a PaO2 of 66, pCO2 of 34 and a pH of 7.48. She is subsequently required intubation and mechanical ventilatory support at approximately 10 AM. She is currently on assist control mode with tidal volume of 400, respiratory rate of 24, FiO2 100% and a PEEP of 5. Follow-up arterial blood gases revealed a pO2 of 309, pCO2 32 and a PH of 7.52. FiO2 was decreased to 50% and rate was decreased to 20. Left internal jugular triple-lumen catheter and right femoral arterial lines were placed. She is currently on propofol at 20 mcg/kg/m. White count 6.5. Hemoglobin 7.5. Platelets 161. Sodium 133. Potassium 3.6. Chloride 103. BUN 11. Creatinine 0.63. Glucose 153. AST 41. ALT 14. She is currently in a -2 L balance. She remains hemodynamically stable. 12/27/2021, the patient is intubated on a mechanical ventilator. Events from yesterday was noted as the patient had to be reintubated and placed on a mechanical ventilator for multiple reasons was significant of which was her altered mentation and her ongoing signs of alcohol withdrawal and delirium. This morning, the patient is on propofol running at extremely 5 mcg/kg per minute and the patient is calm and comfortable. Precedex was discontinued yesterday. She is an assist-control mode of mechanical ventilation at the rate of 1220 with a tidal volume of 400 and FiO2 of 40% with a PEEP of 5. The chest x-ray from today is showing cardiomegaly. ET tube is in a good location for now. The patient has bilateral pleural effusions, stable compared to yesterday. The patient also has a left subclavian triple-lumen catheter in place. Sternal wires are also in place and there are obvious changes related to thoracotomy. The blood gases from today showed a pH of 7.48 with a pCO2 of 33 and pO2 of 87 and the peak airway pressure is around 19. Hemodynamically, the patient is on KVO IV fluids and the patient is on no pressors. She'll be started on enteral feeding for nutritional support. Cardiac rhythm is sinus. Rest of the blood work shows a white cell count of 9 with a hemoglobin of 7.5 and a platelet count of 247 and the electrolytes all within normal limits, blood sugar is at 107 and the patient's low potassium level which was at 3.2 is being replenished. LFTs are normal. Magnesium is also being replaced. This surgical wound sites of dry clean and intact. All of the chest tubes have been discontinued since surgery. 12/28/2021, the patient remains intubated on a mechanical ventilator. A sedation holiday will be given to her today. She remains on propofol running at 50 mcg/kg per minute. No Precedex is running at this point in time. While on the mechanical ventilator, she is quite synchronous and comfortable. She is an assist-control at the rate of 20 with a tidal volume of 375 with an FiO2 of 40% and PEEP of 5. The blood gas showed a pH of 7.5 with a pCO2 of 32 and pO2 of 60. Chest x-ray shows adequate expansion of both lungs. Chest tubes are removed. ET tube is in a good location. There is evidence of pulmonary vessel congestion and cardiomegaly and based on that the cardiothoracic team opted to give her a dose of Lasix. ET tube is in adequate location for now. No evidence of any pneumothorax. The patient has a left subclavian triple-lumen catheter in place. Otherwise, no seizure activity. A sedation holiday will be given to her today. She was started on Seroquel regarding her ongoing delirium and she received a dose of 100 mg overnight. On today's blood work, the white cell count of 14.1 with a hemoglobin of 7.6 and the rest of the electrodes are normal and the potassium is to be replaced at 3.3, BUN is at 14 with a creatinine of 0.7. Afebrile. She is on no antibiotics for now. Producing adequate amount of urine output. Fluid balance has been -1.4 L over the past 24 hours. The [facility] ie is receiving enteral feeding in the form of Vital HP @ rate of 30 12/29/2021, the patient remains sedated with propofol and the patient is currently on 45 mcg/kg per minute. She was given a sedation holiday. I was informed by the nursing staff that the patient was quite agitated. Although at times she was following commands. She was not adequate enough to be considered for extubation as the patient was significantly agitated and the patient was placed back on propofol. As mentioned, she was also started on Seroquel overnight at a dose of 100 mg. This morning, she is well sedated and she is comfortable. She is an assist-control mode at the rate of 20 tidal volume of 375 FiO2 of 40% with a PEEP of 5. Chest x-ray shows no interval changes along with cardiomegaly and some atelectatic changes in lung bases. There is copious amount of yellowish to greenish rest or secretions being suctioned out of the orotracheal tube. This is purulent. She does have a low-grade fever. She had a temperature 100.0 today. She is on no antibiotic coverage for now. Meanwhile, the blood work from today shows a white cell count of 12.7 with a hemoglobin of 7.3 and a pro-calcitonin level was sent out. The blood gas showed a pH of 7.51 with a pCO2 of 36 and pO2 of 68. BUN is at 21 with a creatinine of 0.6 and the sodium level is at 135. She is currently on vital high protein at the rate of 39 mL an hour. Fluid balance over the past 24 hours has been in the order of -426 mL. All of the chest tubes are out. Urine output is adequate. Sternum stable clean and intact. The patient has a triple-lumen catheter in the left subclavian. 12/30/2021, the patient is off propofol a Precedex at 0.3 mcg/kg per minute. She is in the process of being gradually weaned off the Precedex and her mentation will be evaluated. She was having issues with delirium, agitation and asynchrony with a mechanical ventilator. I started on Seroquel also and she is receiving Seroquel at a dose of 100 mg by mouth at bedtime. This has helped her quite a bit. Meanwhile, she remains on a mechanical ventilator. She is an assist-control mode at the rate of 20, tidal volume of 375 and FiO2 of 40% with a PEEP of 5. Blood gases from today shows a pH of 7.48 with a pCO2 of 34 and pO2 of 66. Chest x-ray still showing small bilateral pleural effusion more so on the left along with some hazy bilateral pulmonary infiltrates. This could be related to a ventilator associated pneumonia as the patient is also producing copious amount of respiratory secretions and she is having a low-grade fever and her cultures are still pending for now. Meanwhile, I started this patient on IV cefepime as of yesterday. Respiratory secretions are still copious at this point in time. Surgical wound site is dry clean and intact. The sternum is stable. No signs of any sternal wound infection. The pro-calcitonin level is at 0.4. The white cell count today is up at 15.1. At the same time, there is a drop in hemoglobin down to 6.7 without evidence of any bleeding. The patient remains on vital high protein at the rate of 40 mL an hour. She is on no pressors for now. She is maintaining his home pressure. Renal function is stable with a creatinine of 0.6. Potassium level is at 3.6. Calcium level is a t 8.0. LFTs are slightly abnormal with an AST of 74, ALT of 36 and alk phos of 52. She is in a normal sinus rhythm for now. Objective - Vital Signs Vital signs: Vital Signs Temp 99.5 F 12/30/21 08:00 Pulse 77 12/30/21 08:00 Resp 28 H 12/30/21 08:00 BP 110/60 12/30/21 08:00 Pulse Ox 96 12/30/21 08:00 FiO2 40 12/30/21 08:00 Intake & Output 12/29/21 12/30/21 12/30/21 18:59 06:59 18:59 Intake Total 2238.899 0145.611 206.713 Output Total 685 695 150 Balance 520.003 479.611 56.713 Weight 74.79 kg 72.2 kg Intake: IV 253 276 46 0.9 @ 20 220 240 40 Pressure Bag 33 36 6 Intake, IV Titration 222.003 328.611 80.713 Amount Cefepime 2 gm In Sodium 100 Chloride 0.9% 100 ml @ 25 mls/hr IVPB Q8H YADY Rx#: [id number] Dexmedetomidine/0.9% NaCl 32.035 228.611 80.713 (Pmx) 400 mcg In Empty Bag 1 bag @ 0.2 MCG/KG/HR 3.74 mls/hr IV .Q24H YADY Rx#:[id number] propofoL 1,000 mg In 189.968 Empty Bag 1 bag @ 5 MCG/ KG/MIN 2.28 mls/hr IV . Q24H [facility]ADY Rx#:[id number] Tube Feeding 440 480 80 Other 290 90 Output: Urine 685 695 150 Other: Voiding Method Indwelling Catheter Indwelling Catheter # Bowel Movements 1 ABP, PAP, CO, CI - Last Documented Arterial Blood Pressure 121/49 Pulmonary Artery Pressure 34/8 Cardiac Output 4.8 Cardiac Index 2.7 - Exam GENERAL EXAM: Intubated, sedated 66-year-old female patient, comfortable in no apparent distress. HEAD: Normocephalic/atraumatic. EYES: Normal reaction of pupils, equal size. Conjunctiva pink, sclera white. NOSE: Clear with pink turbinates. THROAT: No erythema or exudates. NECK: No masses, no JVD, no thyroid enlargement, no adenopathy. Left internal jugular triple-lumen catheter in place. CHEST: Heart hugger in place Symmetrical expansion. Midsternal incision is clean dry and intact, chest tubes removed LUNGS: Equal air entry with no crackles, wheeze, rhonchi or dullness. CVS: Regular rate and rhythm, normal S1 and S2, no gallops, no murmurs, no rubs ABDOMEN: Soft, nontender. No hepatosplenomegaly, normal bowel sounds, no guarding or rigidity. EXTREMITIES: Right femoral arterial line in place. No clubbing, no edema, no cyanosis, 2+ pulses and upper and lower extremities. MUSCULOSKELETAL: Muscle strength and tone normal. SPINE: No scoliosis or deformity SKIN: No rashes, left leg interrupted incision covered with Tad wrap - Labs CBC & Chem 7: 12/30/21 04:25 12/30/21 04:25 Labs: Abnormal Lab Results - Last 24 Hours (Table) 12/29/21 12/29/21 12/29/21 Range/Units 05:06 11:16 17:40 WBC (3.8-10.6) k/uL RBC (3.80-5.40) m/uL Hgb (11.4-16.0) gm/dL Hct (34.0-46.0) % MCHC (31.0-37.0) g/dL RDW (11.5-15.5) % Plt Count (150-450) k/uL Neutrophils # (1.3-7.7) k/uL ABG pH (7.35-7.45) ABG pCO2 (35-45) mmHg ABG pO2 (83-108) mmHg ABG Total CO2 (19-24) mmol/L Sodium (137-145) mmol/L Glucose (74-99) mg/dL POC Glucose (mg/dL) 146 H 147 H (75-99) mg/dL Calcium (8.4-10.2) mg/dL AST (14-36) U/L ALT (4-34) U/L Total Protein (6.3-8.2) g/dL Albumin (3.5-5.0) g/dL Procalcitonin 0.40 H (0.02-0.09) ng/mL 12/29/21 12/30/21 12/30/21 Range/Units 23:43 04:25 04:25 WBC 15.1 H (3.8-10.6) k/uL RBC 2.55 L (3.80-5.40) m/uL Hgb 6.7 L* (11.4-16.0) gm/dL Hct 22.2 L (34.0-46.0) % MCHC 30.1 L (31.0-37.0) g/dL RDW 15.8 H (11.5-15.5) % Plt Count 459 H (150-450) k/uL Neutrophils # 12.0 H (1.3-7.7) k/uL ABG pH (7.35-7.45) ABG pCO2 (35-45) mmHg ABG pO2 (83-108) mmHg ABG Total CO2 (19-24) mmol/L Sodium 136 L (137-145) mmol/L Glucose 160 H (74-99) mg/dL POC Glucose (mg/dL) 162 H (75-99) mg/dL Calcium 8.0 L (8.4-10.2) mg/dL AST 74 H (14-36) U/L ALT 36 H (4-34) U/L Total Protein 5.3 L (6.3-8.2) g/dL Albumin 2.5 L (3.5-5.0) g/dL Procalcitonin (0.02-0.09) ng/mL 12/30/21 12/30/21 Range/Units 05:27 06:07 WBC (3.8-10.6) k/uL RBC (3.80-5.40) m/uL Hgb (11.4-16.0) gm/dL Hct (34.0-46.0) % MCHC (31.0-37.0) g/dL RDW (11.5-15.5) % Plt Count (150-450) k/uL Neutrophils # (1.3-7.7) k/uL ABG pH 7.48 H (7.35-7.45) ABG pCO2 34 L (35-45) mmHg ABG pO2 66 L (83-108) mmHg ABG Total CO2 26 H (19-24) mmol/L Sodium (137-145) mmol/L Glucose (74-99) mg/dL POC Glucose (mg/dL) 212 H (75-99) mg/dL Calcium (8.4-10.2) mg/dL AST (14-36) U/L ALT (4-34) U/L Total Protein (6.3-8.2) g/dL Albumin (3.5-5.0) g/dL Procalcitonin (0.02-0.09) ng/mL Microbiology - Last 24 Hours (Table) 12/29/21 21:00 Sputum Culture - Preliminary Sputum Assessment and Plan Plan: 1 Symptomatic multivessel coronary artery disease, status post three-vessel coronary artery bypass grafting with DE LA CRUZ to LAD, SVG to the OM, SVG to the PDA, left atrial appendage exclusion with 35 mm Atriclip on 12/21/2021 2 Routine postoperative ventilator management, patient was successfully weaned and extubated on 12/22/2021. However, on 12/26/2021 the patient developed suspected acute alcohol/drug withdrawal and thoracoabdominal dyssynchrony breathing pattern requiring reintubation and placed back on mechanical ventilator. The patient has been adequately ventilated at this point in time. A new gradual sedation of Precedex and assess the mentation and assess the patient's readiness to wean. This will largely depend on her underlying mental status. Another issue is the possibility of a pneumonia, and ventilator associated pneumonia as the patient is having copious amount of respiratory secretions. Cultures are pending and the patient is currently on IV cefepime. Rest or secretions are being suctioned out frequently. Pro-calcitonin level is at 0.4. The patient is covered for gram-negative pathogens. I think is also reasonable to cover the patient for staph infection specially that she is having copious amount of respiratory secretions. 3 Acute blood loss anemia, an expected outcome of sternotomy, and bypass surgery, requiring transfusion with blood products, patient has received 3 units of packed red blood cells, current hemoglobin 6.7 4 History of substance abuse including cocaine, EtOH, and marijuana. Urine drug screen on the day of surgery on 12/21/2021 is positive for cocaine and benzodiazepines, currently on propofol running at 45 mcg/kg per minute and the patient is still arousable although comfortable synchronous with the mechanical ventilator. 5 History of single kidney, with history of nephrectomy 6 Chronic and ongoing tobacco dependence 7 History of CVA 8 Hypertension 9 Hyperlipidemia 10 History of COPD 11 Depression 12 History of hepatitis C Plan: Continue ventilator support, no changes Sputum cultures still pending for now Procal is currently at 0.4 IV cefepime 2g q 12 and add vancomycin for staphylococcal coverage The patient was started on IV Lasix and she was given 2 doses by cardiothoracic team. Sedation holiday and gradually wean off Precedex Continue Seroquel 100 mg and change the frequency to twice a day enteral feeding for nutritional support Hemodynamically stable Lines overall inserted, we'll try to eliminate the arterial line in the groin and inserted radial arterial line We'll continue working with the cardiothoracic team regarding her care and she may be potentially a difficult extubation because of her underlying comorbidities. We'll continue to follow. Critical care evaluation that was done and more than 30 minutes. T
[2021-12-30] MEDS: QUEtiapine 100 MG TAB PO SCH ×2 (09:24→20:46)
[2021-12-30] MEDS ORDERED: VANCOMYCIN 1,500 MG in SODIUM CHLORIDE 0.9% 250 ML IVPB ONE (10:00)
[2021-12-30 11:33] LABS: ABG Base Excess 1.2 mmol/L; ABG HCO3 25 mmol/L (21-25); ABG Oxygen Saturation 96.6 % (94-97); ABG PCO2 34 mmHg (35-45); ABG PH 7.48 (7.35-7.45); ABG PO2 78 mmHg (83-108); ABG TCO2 26 mmol/L (19-24)
[2021-12-30 11:42] LABS: Glucose,Whole Blood 153 mg/dL (75-99)
[2021-12-30] MEDS: amLODIPine 10 MG TAB PO SCH (12:13)
--- NOTE | 2021-12-30 15:47 | P.PCN ---
Date of Procedure: 12/30/21 Preoperative Diagnosis: acute hypoxic respiratory failure Postoperative Diagnosis: acute hypoxic respiratory failure Procedure(s) Performed: insertion of an arterial line Anesthesia: local Surgeon: Clemente Padilla Estimated Blood Loss (ml): 0 Pathology: other Condition: critical Disposition: ICU Operative Findings: Insertion of an arterial line Indication: Hemodynamic monitoring. A time-out was completed verifying correct patient, procedure, site, positioning, and implant(s) or special equipment if applicable. Allens test was performed to ensure adequate perfusion. The patients right brachial was prepped and draped in sterile fashion. 1% Lidocaine was used to anesthetize the area. An 18G Arrow arterial line was introduced into the brachial artery. The catheter was threaded over the guide wire and the needle was removed with appropriate pulsatile blood return. Blood loss was minimal. The catheter was then sutured in place to the skin and a sterile dressing applied. Perfusion to the extremity distal to the point of catheter insertion was checked and found to be adequate. The patient tolerated the procedure well and there were no complications.
[2021-12-30] MEDS ORDERED: POTASSIUM BICARBONATE/CIT AC 20 MEQ TABLET.EFF PO SCH (16:00)
[2021-12-30 18:09] LABS: Glucose,Whole Blood 208 mg/dL (75-99)
[2021-12-30] MEDS: SENNOSIDES-DOCUSATE SODIUM 1 EACH TAB PO SCH (20:45)
[2021-12-30] MEDS: VANCOMYCIN 1,250 MG in SODIUM CHLORIDE 0.9% 250 ML IVPB SCH (20:46)
[2021-12-30] MEDS ORDERED: QUEtiapine 50 MG TAB PO SCH (21:00)
[2021-12-30 23:03] LABS: Glucose,Whole Blood 167 mg/dL (75-99)
[2021-12-30] MEDS: ACETAMINOPHEN TAB 325 MG TAB PO PRN (23:05)
[2021-12-30] MEDS: LORazepam 2 MG/ML INJ IV PRN (23:10)
[2021-12-31] MEDS: CEFEPIME 2 GM in SODIUM CHLORIDE 0.9% 100 ML IVPB SCH ×3 (02:32→17:52)
[2021-12-31] MEDS: DEXMEDETOMIDINE/0.9% NACL(PMX) 400 MCG in EMPTY BAG 1 BAG IV SCH ×2 (03:22→08:33)
[2021-12-31] MEDS: IPRATROPIUM-ALBUTEROL 3 ML NEB INHALATION SCH ×6 (04:29→23:32)
[2021-12-31] MEDS: LORazepam 2 MG/ML INJ IV PRN ×2 (04:56→13:28)
[2021-12-31 04:58] LABS: Anisocytosis Slight; Basophils % (A) 0 %; Eosinophils # (A) 0.2 k/uL (0-0.7); Eosinophils % (A) 2 %; HCT 21.7 % (34.0-46.0); Hypochromasia Moderate; Lymphocytes # (A) 1.6 k/uL (1.0-4.8); Lymphocytes % (A) 12 %; MCH 26.1 pg (25.0-35.0); MCHC 30.2 g/dL (31.0-37.0); MCV 86.5 fL (80.0-100.0); Mean Platelet Volume 9.2; Monocytes % (A) 7 %; Neutrophils # (A) 10.1 k/uL (1.3-7.7); Neutrophils % (A) 75 %; Platelet Count 562 k/uL (150-450); Poikilocytosis Slight; RBC 2.51 m/uL (3.80-5.40); RDW 16.8 % (11.5-15.5); WBC 13.4 k/uL (3.8-10.6)
[2021-12-31 05:23] LABS: ALT 61 U/L (4-34); AST 123 U/L (14-36); African American GFR (CKD) >90 (>60 ml/min/1.73 sqM); Albumin 2.4 g/dL (3.5-5.0); Alkaline Phosphatase 59 U/L (38-126); Anion Gap 3 mmol/L; Blood Urea Nitrogen 24 mg/dL (7-17); Calcium 8.2 mg/dL (8.4-10.2); Carbon Dioxide 26 mmol/L (22-30); Chloride 110 mmol/L (98-107); Glucose 138 mg/dL (74-99); Magnesium 2.1 mg/dL (1.6-2.3); Non-African American GFR(CKD) 88 (>60 ml/min/1.73 sqM); Potassium 4.2 mmol/L (3.5-5.1); Sodium 139 mmol/L (137-145); Total Protein 5.3 g/dL (6.3-8.2)
[2021-12-31 05:32] LABS: HGB 6.6 gm/dL (11.4-16.0)
[2021-12-31 05:47] LABS: ABG Base Excess 1.7 mmol/L; ABG HCO3 26 mmol/L (21-25); ABG PCO2 36 mmHg (35-45); ABG PH 7.46 (7.35-7.45); ABG PO2 69 mmHg (83-108); ABG TCO2 27 mmol/L (19-24); Allen Test Performed? Yes
[2021-12-31 05:56] LABS: Glucose,Whole Blood 168 mg/dL (75-99)
[2021-12-31] MEDS: THIAMINE 100 MG TAB PO SCH ×2 (05:56→17:52)
[2021-12-31] MEDS: INSULIN ASPART (NovoLOG) 100 UNIT/ML VIAL SQ SCH ×4 (05:56→23:37)
[2021-12-31] MEDS: FLUoxetine HCL 20 MG CAP PO SCH (08:33)
[2021-12-31] MEDS: METOPROLOL TARTRATE 50 MG TAB PO SCH ×2 (08:33→20:36)
[2021-12-31] MEDS: HEPARIN SODIUM,PORCINE/PF 5,000 UNIT/0.5 ML SYRINGE SQ SCH ×3 (08:33→23:37)
[2021-12-31] MEDS: ATORVASTATIN 40 MG TAB PO SCH (08:34)
[2021-12-31] MEDS: CHLORHEXIDINE GLUCONATE 15 ML CUP MUCOUS MEM SCH ×2 (08:34→20:36)
[2021-12-31] MEDS: QUEtiapine 100 MG TAB PO SCH ×2 (08:34→20:37)
[2021-12-31] MEDS: PANTOPRAZOLE 40 MG/10 ML VIAL IVP SCH (08:34)
[2021-12-31] MEDS: CLOPIDOGREL 75 MG TAB PO SCH (08:34)
[2021-12-31] MEDS: ASPIRIN 81 MG PO SCH (08:34)
[2021-12-31] MEDS: MULTIVITAMINS, THERA 1 EACH TAB PO SCH (08:36)
[2021-12-31] MEDS: VANCOMYCIN 1,250 MG in SODIUM CHLORIDE 0.9% 250 ML IVPB SCH ×2 (08:36→20:36)
--- NOTE | 2021-12-31 09:26 | XR ---
EXAMINATION TYPE: XR chest 1V portable DATE OF EXAM: 12/31/2021 Comparison: 12/30/2021 Clinical History: 66-year-old female with tube placement Findings: Median sternotomy wires are present. Post-CABG clips in the mediastinum. Left CVC tip in the right at rium. NG tube courses below the diaphragm. ET tube somewhat low measuring 1.7 cm from the henrry. Pul l back 2 cm in reassessment follow-up. Patient rotated towards the left. Heart mildly enlarged. Interstitial, perihilar, and bibasilar opaci ties persist. Impression: 1. ET tube slightly low at 1.7 cm from the henrry. Pull back 2 cm and reassess at follow-up. 2. Similar mild cardiomegaly with interstitial, perihilar, and bibasilar opacities. Likely small-to-m oderate left and small right pleural effusions with adjacent atelectasis and/or consolidation, possib le sequela of CHF with pulmonary vascular congestion.
[2021-12-31] MEDS: HYDROmorphone 1 MG/ML 1 ML SYRINGE IVP PRN ×2 (09:40→14:40)
--- NOTE | 2021-12-31 10:18 | P.PN ---
Subjective Progress Note Date: 12/31/21 Principal diagnosis: Coronary artery disease with left main disease. Past medical history significant for hypertension, current ongoing tobacco dependence with mild COPD, daily EtOH use (1 pint per day of liquor), occasional marijuana and cocaine use (UDS was positive for cocaine on admission), hepatitis C, CVA 20 years ago, and solitary kidney. POD #10 coronary artery bypass grafting 3 vessels, left internal mammary artery to the left anterior descending artery, a reverse saphenous vein graft to the obtuse marginal coronary artery, a reverse saphenous vein graft to the posterior descending coronary artery, endoscopic harvesting of the left greater saphenous vein, ligation of the left atrial appendage using a 35 mm AtriClip, epi-aortic ultrasound and intraoperative transesophageal echocardiogram Postoperative acute blood loss anemia and thrombocytopenia, expected given hemodilution and cardiopulmonary bypass pump. Suspected alcohol/drug withdrawal with thoracoabdominal dyssynchrony breathing pattern, reintubated per Dr. Thornton. The patient was seen and examined today 12/31/2021 at her bedside in the intensive care unit. Currently she is sedated on a Precedex drip, remains intubated with mechanical ventilator support with current mechanical ventilator settings assist control 20, TV 375, FiO2 40% PEEP of 5. Oxygen saturations on current mechanical ventilator settings are 97%. ABGs this morning show a pH of 7.46, pCO2 36, pO2 69, HCO3 26, oxygen saturation 95% and base excess 1.7. She remains hemodynamically stable and is currently on no inotropic pressor support. Bedside telemetry showing normal sinus rhythm heart rate 73 bpm. Atrial and ventricular epicardial pacemaker wires in place and grounded. A weaning trial was completed yesterday and the bedside nurse reports that she was quite restless and agitated. Continues to have thick tenacious sputum from her ET tube, sputum cultures remain pending. She is on cefepime and vancomycin for antibiotic coverage managed by pulmonary/critical care medicine. Her T-max temperature in the last 24 hours was 101.8F. Laboratory results this morning show a WBC count 13.4, hemoglobin 6.6, hematocrit 21.7, platelets 562, sodium 139, potassium 4.2, BUN 24, creatinine 0.72, glucose 138, calcium 8.2, magnesium 2.1, AST 123 and ALT 61. Chest x-ray report was reviewed. Young catheter remains in place for accurate I's and O's, 760 mL urine output in the last 8 hours. Objective - Vital Signs Vital signs: Vital Signs Temp 99.3 F 12/31/21 08:00 Pulse 97 12/31/21 09:05 Resp 24 12/31/21 09:05 BP 103/57 12/30/21 15:00 Pulse Ox 98 12/31/21 08:00 FiO2 40 12/31/21 08:52 Intake & Output 12/30/21 12/31/21 12/31/21 18:59 06:59 18:59 Intake Total 9916.826 7609.450 189.918 Output Total 1325 1420 80 Balance -260.922 -125.550 109.918 Weight 71.3 kg Intake: IV 276 299 23 0.9 @ 20 240 260 20 Pressure Bag 36 39 3 Intake, IV Titration 668.078 425.450 96.918 Amount Cefepime 2 gm In Sodium 200 Chloride 0.9% 100 ml @ 25 mls/hr IVPB Q8H [facility] Rx#: [id number] Dexmedetomidine/0.9% NaCl 218.078 175.450 96.918 (Pmx) 400 mcg In Empty Bag 1 bag @ 0.2 MCG/KG/HR 3.74 mls/hr IV .Q24H [facility] Rx#:[id number] Vancomycin 1,250 mg In 250 Sodium Chloride 0.9% 250 ml @ 125 mls/hr IVPB Q12HR [facility] Rx#:[id number] Vancomycin 1,500 mg In 250 Sodium Chloride 0.9% 250 ml @ 125 mls/hr IVPB ONCE ONE Rx#:[id number] Tube Feeding 120 480 40 Other 90 30 Output: Urine 1325 1420 80 Other: Voiding Method Indwelling Catheter Indwelling Catheter ABP, PAP, CO, CI - Last Documented Arterial Blood Pressure 127/49 Pulmonary Artery Pressure 34/8 Cardiac Output 4.8 Cardiac Index 2.7 - Exam CONSTITUTIONAL: Currently laying in bed in the intensive care unit. She is sedated with Precedex drip and remains intubated with mechanical ventilator support. RESPIRATORY: Lungs sounds diminished throughout bilaterally. Respirations are symmetrical, and nonlabored with mechanical ventilator support. Current mechanical ventilator settings are assist control 20, TV 375, FiO2 40% and a PEEP of 5. Oxygen saturation are 97% on current mechanical ventilator settings. ET tube in place at 23 cm at the lip. CARDIOVASCULAR: S1, S2 present. Regular rate and rhythm, sinus rhythm on telemetry, heart rate 73 BPM. Sternum stable. Palpable peripheral pulses bilaterally. No edema present. No calf pain or tenderness noted. Heart hugger, antiembolism stockings, SCDs present. GASTROINTESTINAL: Abdomen soft, nontender, nondistended. Active bowel sounds present 4 quadrants. No guarding or rigidity. OG tube in place with vital high-protein to feeding infusing at 40 mL per hour with automatic water flushes 30 mL every 4 hours. Bowel movement yesterday 12/29/2021. GENITOURINARY: Young catheter in place for accurate I's and O's. Urine output 760 mL in the last 8 hours. INTEGUMENTARY: Skin is warm and dry with evidence of clubbing or cyanosis. midline sternal chest incision well approximated and covered with dry intact dressing. Left lower extremity EVH site well approximated without redness or drainage. NEUROLOGIC: Currently sedated on Precedex drip, unable to accurately assess. INVASIVE LINES AND TUBES: A/V epicardial pacemaker wires present, and grounded. Left subclavian triple-lumen catheter and right brachial arterial line in place and functioning. - Allied health notes Allied health notes reviewed: nursing - Labs CBC & Chem 7: 12/31/21 03:55 12/31/21 03:55 Labs: Abnormal Lab Results - Last 24 Hours (Table) 12/30/21 12/30/21 12/30/21 Range/Units 11:27 11:40 17:58 WBC (3.8-10.6) k/uL RBC (3.80-5.40) m/uL Hgb (11.4-16.0) gm/dL Hct (34.0-46.0) % MCHC (31.0-37.0) g/dL RDW (11.5-15.5) % Plt Count (150-450) k/uL Neutrophils # (1.3-7.7) k/uL ABG pH 7.48 H (7.35-7.45) ABG pCO2 34 L (35-45) mmHg ABG pO2 78 L (83-108) mmHg ABG HCO3 (21-25) mmol/L ABG Total CO2 26 H (19-24) mmol/L Chloride (98-107) mmol/L BUN (7-17) mg/dL Glucose (74-99) mg/dL POC Glucose (mg/dL) 153 H 208 H (75-99) mg/dL Calcium (8.4-10.2) mg/dL AST (14-36) U/L ALT (4-34) U/L Total Protein (6.3-8.2) g/dL Albumin (3.5-5.0) g/dL 12/30/21 12/31/21 12/31/21 Range/Units 23:01 03:55 03:55 WBC 13.4 H (3.8-10.6) k/uL RBC 2.51 L (3.80-5.40) m/uL Hgb 6.6 L* (11.4-16.0) gm/dL Hct 21.7 L (34.0-46.0) % MCHC 30.2 L (31.0-37.0) g/dL RDW 16.8 H (11.5-15.5) % Plt Count 562 H (150-450) k/uL Neutrophils # 10.1 H (1.3-7.7) k/uL ABG pH (7.35-7.45) ABG pCO2 (35-45) mmHg ABG pO2 (83-108) mmHg ABG HCO3 (21-25) mmol/L ABG Total CO2 (19-24) mmol/L Chloride 110 H (98-107) mmol/L BUN 24 H (7-17) mg/dL Glucose 138 H (74-99) mg/dL POC Glucose (mg/dL) 167 H (75-99) mg/dL Calcium 8.2 L (8.4-10.2) mg/dL AST 123 H (14-36) U/L ALT 61 H (4-34) U/L Total Protein 5.3 L (6.3-8.2) g/dL Albumin 2.4 L (3.5-5.0) g/dL 12/31/21 12/31/21 Range/Units 05:42 05:45 WBC (3.8-10.6) k/uL RBC (3.80-5.40) m/uL Hgb (11.4-16.0) gm/dL Hct (34.0-46.0) % MCHC (31.0-37.0) g/dL RDW (11.5-15.5) % Plt Count (150-450) k/uL Neutrophils # (1.3-7.7) k/uL ABG pH 7.46 H (7.35-7.45) ABG pCO2 (35-45) mmHg ABG pO2 69 L (83-108) mmHg ABG HCO3 26 H (21-25) mmol/L ABG Total CO2 27 H (19-24) mmol/L Chloride (98-107) mmol/L BUN (7-17) mg/dL Glucose (74-99) mg/dL POC Glucose (mg/dL) 168 H (75-99) mg/dL Calcium (8.4-10.2) mg/dL AST (14-36) U/L ALT (4-34) U/L Total Protein (6.3-8.2) g/dL Albumin (3.5-5.0) g/dL Microbiology - Last 24 Hours (Table) 12/29/21 21:00 Gram Stain - Preliminary Sputum Sputum Culture - Preliminary - Imaging and Cardiology Chest x-ray: report reviewed, image reviewed Assessment and Plan Assessment: 1. Coronary artery disease with left main disease, status post three-vessel CABG 2. History of hypertension 3. Current ongoing tobacco dependence 4. Mild COPD, preoperative FEV1 was 73% of predicted 5. Daily EtOH use (1 pint per day of liquor) 6. Occasional marijuana and cocaine use (UDS was positive for cocaine on admission) 7. Hepatitis C 8. CVA 20 years ago 9. Solitary kidney. 10. Postoperative acute blood loss anemia and thrombocytopenia, expected 11. Suspected alcohol/drug withdrawal with thoracoabdominal dyssynchrony breathing pattern, reintubated per Dr. Thornton Plan: 1. Continue aspirin, statin, Plavix, Norvasc, beta briana. Increase metoprolol tartrate as tolerated. 2. Mechanical ventilator, bronchodilators per pulmonary/critical care medicine. Mechanical ventilator weaning her Dr. Padilla's recommendations. 3. Precedex drip management per pulmonary/critical care medicine. 4. Will monitor daily labs and chest x-rays. Electrolyte replacement per protocol. 5. GI/DVT prophylaxis. 6. Pain control current medication regimen. 7. CIWA protocol. Continue Seroquel 100 mg per OG tube twice a day. 8. Insulin management per primary care services. Patient is not diabetic, preoperative hemoglobin A1c 5.4%. 9. Patient counseled preoperatively and will continue to be counseled throughout her stay that she should refrain from smoking, drinking, using illicit drugs. 10. Keep Young catheter in place for accurate I's and O's, continue to record strict and accurate intake and output. Daily weights. 11. Lasix 40 mg IV 1 now. Potassium chloride 20 mg by OG tube 1 dose. 12. Keep atrial and ventricular epicardial pacemaker wires in place and grounded. 13. Keep OG tube in place with vital high-protein to feedings infusing per dietitian recommendations. 14. Cefepime and vancomycin IV antibiotic management per pulmonary/critical care service recommendations. 15. More recommendations to follow based on patient's clinical course. Time with Patient: Greater than 30
[2021-12-31] MEDS ORDERED: FUROSEMIDE 10 MG/ML 4 ML VIAL IV STA ×2 (10:35→14:22)
--- NOTE | 2021-12-31 10:37 | P.PN ---
Subjective Progress Note Date: 12/31/21 This is a 66-year-old -Turk[place] female patient of Dr. Allan with past medical history of hypertension, hyperlipidemia, CVA, single kidney with right nephrectomy, history of hepatitis C, COPD, current tobacco dependence, depression, daily EtOH use, occasional marijuana and cocaine use. Patient had recently been complaining of chest pain and shortness of breath for 2 months, she was seen by cardiology, she follows with Dr. Hutchison, she underwent stress testing which was abnormal and subsequently she had a heart catheterization that demonstrated 85% left main disease, totally occluded RCA with collateral from the left side, proximal LAD stenosis of 95%, mid LAD stenosis of a 50% with distal LAD stenosis of 70%, and circumflex with mild disease of 30-40%. Due to these findings patient was referred to cardiothoracic surgery for surgical revascularization. Transthoracic echocardiogram from 12/09/2021 showed preserved LV function with ejection fraction of 55-60%, mildly increased septal wall thickness and posterior wall thickness. There was mild mitral regurg, aortic valve was structurally normal without significant sclerosis or stenosis or aortic regurgitation, pulmonary artery systolic pressure was normal, there was trace tricuspid regurg. Bedside PFT showed FEV1 of 1.68 L or 73% of predicted, FVC of 2.04, or 68% of predicted, and FEV1 to FEC ratio of 107%, MCV of 63, and this was consistent with mild restrictive pulmonary physiology. Today on 12/21/2021 patient presented to the hospital, and underwent three- vessel coronary artery bypass surgery with [place] to the LAD, SVG to the OM, SVG to the PDA,, left atrial appendage exclusion with 35 mm Atriclip, intraoperative CHAD, and appendectomy aortic scanning. Patient has known history of substance abuse, and her urine drug screen the day of surgery on 12/21/2021 was positive for benzodiazepines and cocaine. We seen the patient in the postoperative period in the ICU, patient is still sedated and intubated, on assist-control mode with a rate of 12, tidal lamberts 400, FiO2 of 100% and PEEP of 5, postoperative blood gas shows pO2 156, pCO2 51, and pH of 7.30 and this was done on the above-mentioned ventilator settings and FiO2 had since been dropped down to 80%. Chest x-ray showing ET tube 2 cm above the henrry, right internal jugular [place] in place, bilateral pleural and mediastinal chest tubes in place. No pneumothorax. Patient is in sinus mechanism with a rate of 71, blood pressure is 148/63, PA pressures 33/16, CVP 7-8, cardiac output is 3.6, and cardiac index is 2.0. With SVR of 1400. Currently patient is on lactated Ringer's at 50 ML per hour, insulin is at 0.5 units per hour, nitroglycerin is up 5 mics per kilo per minute, and milrinone is at 0.3 mics per kilo per minute. Right and left pleural chest tubes connected together, and mediastinal chest tube with minimal sanguinous output. No air leak noted. Young catheter is in place, patient is producing 50-65 ML per hour. On 12/22/2021 patient seen in follow-up in intensive care unit, she is waking up, she remains intubated on mechanical ventilator, on assist-control with a rate of 12, tidal volume was 400, FiO2 of 60% and PEEP of 5. This point his blood gas showed pO2 of 68, pCO2 of 43, and pH of 7.39, and this was done on those above-mentioned ventilator settings, patient has since been placed on pressure support of 5 and CPAP of 5 with FiO2 of 50%. She is doing good, she is opening eyes to voice, follows simple commands, appears to be in no acute distress, hemodynamically she is been stable, she is in sinus mechanism with a rate of 90 BPM, she remains on small amount of milrinone at 0.1 cameron per kilo per minute, she is on lactated Ringer's at 50 ML per hour, norepinephrine at 0.08 units per kilo per minute, Cleviprex and nitroglycerin infusions have been discontinued. Today's chest x-ray has been reviewed showing scattered bibasilar infiltrates likely related to atelectasis. PA pressure is 36/17, CVP is 9, cardiac output is 4.8, and cardiac index is 2.7. This morning's labs have been reviewed showing globin of 5.9, white blood cell count of 6.4, platelet count of 99, sodium is 138, potassium is 4.2, chloride is 108, BUN is 15, creatinine is 1.05. Patient was transfused with 1 unit of packed red blood cells, repeat labs from this morning show hemoglobin if 6.6, and patient will receive another unit of packed red blood cells. Patient has a mediastinal chest tube in place and 1 left pleural and one right pleural white connected together, and pleural chest tubes put out 650 mL of serosanguineous output in the last 24 hours, and there is been 300 mL of serous and was output from the mediastinal chest tube. Remains on cefazolin for prophylactic antibiotic coverage. Patient has been started on aspirin, Lipitor, Plavix, she is on subcu heparin, metoprolol 12.5 mg twice daily, Protonix for GI prophylaxis. She is on Ativan per CIWA protocol, and thiamine replacements. Patient's weaning parameters and blood gas following spontaneous breathing trials were satisfactory, and spontaneous tidal volumes were 375, respiratory rate was 20, minute ventilation was 7.35 L/m, R SBI was 60, and this was -25, and we were unable to obtain vital. Blood gas was satisfactory with pO2 of 112, pCO2 44, and pH of 7.38 on pressure-support of 5 and CPAP of 5 and FiO2 of 50%. Patient looks comfortable, and she had a positive cuff week as well. She was extubated and tolerating extubation well. Midsternal incision is clean dry and intact, chest tube sites are clean dry and intact, left leg and the right leg Tad wrap. On 12/23/2021 patient seen in follow-up in intensive care unit, today is postoperative day #2, status post three-vessel coronary artery bypass grafting. She was successfully weaned and extubated yesterday on 12/22/2021, however in the evening she developed respiratory difficulty, hypoxia and required to go on BiPAP support with pressures of 12 and 5 and FiO2 of 100%, which was then weaned down to 50%. Her chest x-ray at 1720 last night showed bilateral chest tubes without evidence of pneumothorax, layering bilateral pleural effusions with associated subsegmental atelectasis, and coronary vascular congestion with cardiomegaly. Patient received one-time dose of IV Lasix she has produced 2.9 L in the urine output over the last 24 hours, however still remains in positive fluid balance of 769 mL over last 24 hours, her right and left pleural chest tubes have been by CT surgery last night, and right-sided pleural chest tube has put out 400 mL of bright red blood overnight, left pleural chest tube only put out 25 mL, and mediastinal chest tube 150 the last 24 hours. Patient received 3 units of packed red blood cells yesterday, his labs have been reviewed, hemoglobin is 8.2, white count is 11.1, platelet count is 75. Sodium is 138, potassium 3.8, chloride is 109, BUN is 13, creatinine 0.84. Hemodynamically patient is improved, her norepinephrine drip has been off since yesterday afternoon, milrinone drip has been discontinued this morning, she remains on Vicodin Ringer's at 50 ML per hour, and insulin at 2 units per hour, she is currently awake and alert, she is on 15 L per high flow nasal cannula, sitting up in a recliner, her incentive spirometer effort is suboptimal, patient is achieving about 500 to sometimes 700 mL on the incentive spirometer, lung sounds are diminished, poor inspiratory effort, there are scattered diffuse crackles throughout. Today's chest x-ray shows continued bilateral patchy opacities throughout both but improving aeration in the lower lungs, bilateral pleural chest tubes in place, no appreciable pneumothorax. PA pressure is 35/13, CVP is 7, cardiac output is 5.4, cardiac index 3.1. Patient states her pain is tolerable, she rates it 7 out of 10, and it is in the anterior sternum incisional area. Patient is tolerating sips of clear liquids. Diet has been ordered for her this morning. The patient is seen today 12/24/2021 in follow-up in the intensive care unit. Postoperative day #3 of the three-vessel coronary artery bypass surgery. She is currently sitting up in a chair at the bedside. Awake and alert in no acute distress. Maintaining O2 saturations in the 90s on 6 L high flow nasal cannula. Bilateral end mediastinal chest tubes remain in place. Chest x-ray reveals no evidence of pneumothorax. Persistent mild cardiomegaly with bilateral multifocal edema/infiltrate. No significant change compared to yesterday. She is pulling only about 500 ML's on her incentive spirometer at this morning. She did not utilize BiPAP last night. She remains on lactated Ringer's at 40 miles per hour. Insulin drip at 1 unit per hour. She is status post 3 units of packed red blood cells this admission. White count 10.6. Hemoglobin 8.1. Platelet count 81,000. Sodium 133. Potassium 4.2. BUN 12. Creatinine 0.69. Glucose 127. AST 56. ALT 13. CVP is 7. Cardiac output 4.8. Cardiac index 2.7. Blood pressure stable. Pacer wires in place. Remains in a -500 ML balance. Continued on DuoNeb inhalations. The patient is seen today 12/25/2021 in follow-up in the intensive care unit. This is postoperative day #4. She is currently resting comfortably in bed. Awake and alert in no acute distress. Chest tubes have been removed. She is maintaining O2 saturations in the 90s on 4 L/m per nasal cannula. Chest lactated Ringer's running at 30 MLS per hour. She is continuing to work with the incentive spirometer. Chest x-ray reveals some mild pulmonary edema. Stable cardiomegaly. No evidence of pneumothorax. She is status post 3 units of packed red blood cells this admission. Current hemoglobin 8.7. Platelets 118. White count 6.3. Sodium 134. Potassium 4.1. Bicarb 22. BUN 12. Creatinine 0.61. Glucose 18. AST 54, ALT 14. Initiated on Arixtra. The patient is seen today 12/26/2021 in follow-up in the intensive care unit. This is postoperative day #5. This morning the patient became quite restless and agitated. Trying to climb out of bed. She required Ativan and Haldol throughout the night. Suspecting alcohol and possible drug withdrawal. She was initiated on Precedex at 0.6 mg/kg per hour. Her oxygen requirements were gradually increasing up to 10 L high flow nasal cannula. Chest x-ray revealed moderate pulmonary vascular congestion and interstitial edema. She was given Lasix 40 mg IVP 1. She was diaphoretic. She was tachypneic with thoracoa bdominal dyssynchrony in her breathing pattern. Blood gases revealed a PaO2 of 66, pCO2 of 34 and a pH of 7.48. She is subsequently required intubation and mechanical ventilatory support at approximately 10 AM. She is currently on assist control mode with tidal volume of 400, respiratory rate of 24, FiO2 100% and a PEEP of 5. Follow-up arterial blood gases revealed a pO2 of 309, pCO2 32 and a PH of 7.52. FiO2 was decreased to 50% and rate was decreased to 20. Left internal jugular triple-lumen catheter and right femoral arterial lines were placed. She is currently on propofol at 20 mcg/kg/m. White count 6.5. Hemoglobin 7.5. Platelets 161. Sodium 133. Potassium 3.6. Chloride 103. BUN 11. Creatinine 0.63. Glucose 153. AST 41. ALT 14. She is currently in a -2 L balance. She remains hemodynamically stable. 12/27/2021, the patient is intubated on a mechanical ventilator. Events from yesterday was noted as the patient had to be reintubated and placed on a mechanical ventilator for multiple reasons was significant of which was her altered mentation and her ongoing signs of alcohol withdrawal and delirium. This morning, the patient is on propofol running at extremely 5 mcg/kg per minute and the patient is calm and comfortable. Precedex was discontinued yesterday. She is an assist-control mode of mechanical ventilation at the rate of 1220 with a tidal volume of 400 and FiO2 of 40% with a PEEP of 5. The chest x-ray from today is showing cardiomegaly. ET tube is in a good location for now. The patient has bilateral pleural effusions, stable compared to yesterday. The patient also has a left subclavian triple-lumen catheter in place. Sternal wires are also in place and there are obvious changes related to thoracotomy. The blood gases from today showed a pH of 7.48 with a pCO2 of 33 and pO2 of 87 and the peak airway pressure is around 19. Hemodynamically, the patient is on KVO IV fluids and the patient is on no pressors. She'll be started on enteral feeding for nutritional support. Cardiac rhythm is sinus. Rest of the blood work shows a white cell count of 9 with a hemoglobin of 7.5 and a platelet count of 247 and the electrolytes all within normal limits, blood sugar is at 107 and the patient's low potassium level which was at 3.2 is being replenished. LFTs are normal. Magnesium is also being replaced. This surgical wound sites of dry clean and intact. All of the chest tubes have been discontinued since surgery. 12/28/2021, the patient remains intubated on a mechanical ventilator. A sedation holiday will be given to her today. She remains on propofol running at 50 mcg/kg per minute. No Precedex is running at this point in time. While on the mechanical ventilator, she is quite synchronous and comfortable. She is an assist-control at the rate of 20 with a tidal volume of 375 with an FiO2 of 40% and PEEP of 5. The blood gas showed a pH of 7.5 with a pCO2 of 32 and pO2 of 60. Chest x-ray shows adequate expansion of both lungs. Chest tubes are removed. ET tube is in a good location. There is evidence of pulmonary vessel congestion and cardiomegaly and based on that the cardiothoracic team opted to give her a dose of Lasix. ET tube is in adequate location for now. No evidence of any pneumothorax. The patient has a left subclavian triple-lumen catheter in place. Otherwise, no seizure activity. A sedation holiday will be given to her today. She was started on Seroquel regarding her ongoing delirium and she received a dose of 100 mg overnight. On today's blood work, the white cell count of 14.1 with a hemoglobin of 7.6 and the rest of the electrodes are normal and the potassium is to be replaced at 3.3, BUN is at 14 with a creatinine of 0.7. Afebrile. She is on no antibiotics for now. Producing adequate amount of urine output. Fluid balance has been -1.4 L over the past 24 hours. [facility] is receiving enteral feeding in the form of Vital HP @ rate of 30 12/29/2021, the patient remains sedated with propofol and the patient is currently on 45 mcg/kg per minute. She was given a sedation holiday. I was informed by the nursing staff that the patient was quite agitated. Although at times she was following commands. She was not adequate enough to be considered for extubation as the patient was significantly agitated and the patient was placed back on propofol. As mentioned, she was also started on Seroquel overnight at a dose of 100 mg. This morning, she is well sedated and she is comfortable. She is an assist-control mode at the rate of 20 tidal volume of 375 FiO2 of 40% with a PEEP of 5. Chest x-ray shows no interval changes along with cardiomegaly and some atelectatic changes in lung bases. There is copious amount of yellowish to greenish rest or secretions being suctioned out of the orotracheal tube. This is purulent. She does have a low-grade fever. She had a temperature 100.0 today. She is on no antibiotic coverage for now. Meanwhile, the blood work from today shows a white cell count of 12.7 with a hemoglobin of 7.3 and a pro-calcitonin level was sent out. The blood gas showed a pH of 7.51 with a pCO2 of 36 and pO2 of 68. BUN is at 21 with a creatinine of 0.6 and the sodium level is at 135. She is currently on vital high protein at the rate of 39 mL an hour. Fluid balance over the past 24 hours has been in the order of -426 mL. All of the chest tubes are out. Urine output is adequate. Sternum stable clean and intact. The patient has a triple-lumen catheter in the left subclavian. 12/30/2021, the patient is off propofol a Precedex at 0.3 mcg/kg per minute. She is in the process of being gradually weaned off the Precedex and her mentation will be evaluated. She was having issues with delirium, agitation and asynchrony with a mechanical ventilator. I started on Seroquel also and she is receiving Seroquel at a dose of 100 mg by mouth at bedtime. This has helped her quite a bit. Meanwhile, she remains on a mechanical ventilator. She is an assist-control mode at the rate of 20, tidal volume of 375 and FiO2 of 40% with a PEEP of 5. Blood gases from today shows a pH of 7.48 with a pCO2 of 34 and pO2 of 66. Chest x-ray still showing small bilateral pleural effusion more so on the left along with some hazy bilateral pulmonary infiltrates. This could be related to a ventilator associated pneumonia as the patient is also producing copious amount of respiratory secretions and she is having a low-grade fever and her cultures are still pending for now. Meanwhile, I started this patient on IV cefepime as of yesterday. Respiratory secretions are still copious at this point in time. Surgical wound site is dry clean and intact. The sternum is stable. No signs of any sternal wound infection. The pro-calcitonin level is at 0.4. The white cell count today is up at 15.1. At the same time, there is a drop in hemoglobin down to 6.7 without evidence of any bleeding. The patient remains on vital high protein at the rate of 40 mL an hour. She is on no pressors for now. She is maintaining his home pressure. Renal function is stable with a creatinine of 0.6. Potassium level is at 3.6. Calcium level is a t 8.0. LFTs are slightly abnormal with an AST of 74, ALT of 36 and alk phos of 52. She is in a normal sinus rhythm for now. Extent 2021, the patient remains off propofol and she is only on Precedex for sedation at 1 mcg/kg per minute. She is significant is a mechanical ventilator. Note that the patient was given a sedation holiday yesterday and this point is breathing trial. Nevertheless, we were not comfortable with extubation as the patient was quite borderline and she was having significant amount of secretions. Based on that, we aborted the reading trial. The same will be done today. She is an assist-control mode of mechanical ventilation, and she is at the rate of 20 with a tidal volume of of 10 75 mL with an FiO2 of 40% and PEEP of 5. Chest x-ray is unchanged and the patient is being diuresed. ET tube is in a good location. No evidence of any pneumothorax. Chest tubes have been removed. The patient's overall fluid balance has been negative as the patient is being diuresis with IV Lasix. She is having copious amount of rest or secretions. I modified antibiotics and I added vancomycin in combination with cefepime. The sputum cultures are still pending for now. In terms of fever, the patient is having one temperature spike yesterday with a T-max of 101.8. Th is morning she is afebrile. She is on no pressors for now. She is receiving enteral feeding for nutritional support and she is on vital high protein at the rate of 40 mL an hour. Note that into regards to her agitation, we modified her static with those and the patient is currently on Seroquel 100 mg by mouth twice a day. The hemoglobin today is at 6.6. Cardiothoracic surgery opted not to tra nsfuse this patient. The white cell count at 13.4. Review is a 24 with a creatinine of 0.7 with a sodium level of 139. No other the hemoglobin from yesterday was at 6.7 and ultimately the patient is going to need a transfusion Objective - Vital Signs Vital signs: Vital Signs Temp 99.3 F 12/31/21 08:00 Pulse 72 12/31/21 10:00 Resp 21 12/31/21 10:00 BP 103/57 12/30/21 15:00 Pulse Ox 98 12/31/21 10:00 FiO2 40 12/31/21 08:52 Intake & Output 12/30/21 12/31/21 12/31/21 18:59 06:59 18:59 Intake Total 2215.115 4272.450 502.918 Output Total 1325 1420 155 Balance -260.922 -125.550 347.918 Weight 71.3 kg Intake: IV 276 299 296 0.9 @ 20 240 260 40 Pressure Bag 36 39 6 Vancomycin 1,250 mg In 250 Sodium Chloride 0.9% 250 ml @ 125 mls/hr IVPB Q12HR [facility] Rx#:[id number] Intake, IV Titration 668.078 425.450 96.918 Amount Cefepime 2 gm In Sodium 200 Chloride 0.9% 100 ml @ 25 mls/hr IVPB Q8H [facility] Rx#: [id number] Dexmedetomidine/0.9% NaCl 218.078 175.450 96.918 (Pmx) 400 mcg In Empty Bag 1 bag @ 0.2 MCG/KG/HR 3.74 mls/hr IV .Q24H [facility] Rx#:[id number] Vancomycin 1,250 mg In 250 Sodium Chloride 0.9% 250 ml @ 125 mls/hr IVPB Q12HR [facility] Rx#:[id number] Vancomycin 1,500 mg In 250 Sodium Chloride 0.9% 250 ml @ 125 mls/hr IVPB ONCE ONE Rx#:[id number] Tube Feeding 120 480 80 Other 90 30 Output: Urine 1325 1420 155 Other: Voiding Method Indwelling Catheter Indwelling Catheter Indwelling Catheter ABP, PAP, CO, CI - Last Documented Arterial Blood Pressure 115/48 Pulmonary Artery Pressure 34/8 Cardiac Output 4.8 Cardiac Index 2.7 - Exam GENERAL EXAM: Intubated, sedated 66-year-old female patient, comfortable in no apparent distress. HEAD: Normocephalic/atraumatic. EYES: Normal reaction of pupils, equal size. Conjunctiva pink, sclera white. NOSE: Clear with pink turbinates. THROAT: No erythema or exudates. NECK: No masses, no JVD, no thyroid enlargement, no adenopathy. Left internal jugular triple-lumen catheter in place. CHEST: Heart hugger in place Symmetrical expansion. Midsternal incision is clean dry and intact, chest tubes removed LUNGS: Equal air entry with no crackles, wheeze, rhonchi or dullness. CVS: Regular rate and rhythm, normal S1 and S2, no gallops, no murmurs, no rubs ABDOMEN: Soft, nontender. No hepatosplenomegaly, normal bowel sounds, no guarding or rigidity. EXTREMITIES: Right femoral arterial line in place. No clubbing, no edema, no cyanosis, 2+ pulses and upper and lower extremities. MUSCULOSKELETAL: Muscle strength and tone normal. SPINE: No scoliosis or deformity SKIN: No rashes, left leg interrupted incision covered with Tad wrap - Labs CBC & Chem 7: 12/31/21 03:55 12/31/21 03:55 Labs: Abnormal Lab Results - Last 24 Hours (Table) 12/30/21 12/30/21 12/30/21 Range/Units 11:27 11:40 17:58 WBC (3.8-10.6) k/uL RBC (3.80-5.40) m/uL Hgb (11.4-16.0) gm/dL Hct (34.0-46.0) % MCHC (31.0-37.0) g/dL RDW (11.5-15.5) % Plt Count (150-450) k/uL Neutrophils # (1.3-7.7) k/uL ABG pH 7.48 H (7.35-7.45) ABG pCO2 34 L (35-45) mmHg ABG pO2 78 L (83-108) mmHg ABG HCO3 (21-25) mmol/L ABG Total CO2 26 H (19-24) mmol/L Chloride (98-107) mmol/L BUN (7-17) mg/dL Glucose (74-99) mg/dL POC Glucose (mg/dL) 153 H 208 H (75-99) mg/dL Calcium (8.4-10.2) mg/dL AST (14-36) U/L ALT (4-34) U/L Total Protein (6.3-8.2) g/dL Albumin (3.5-5.0) g/dL 12/30/21 12/31/21 12/31/21 Range/Units 23:01 03:55 03:55 WBC 13.4 H (3.8-10.6) k/uL RBC 2.51 L (3.80-5.40) m/uL Hgb 6.6 L* (11.4-16.0) gm/dL Hct 21.7 L (34.0-46.0) % MCHC 30.2 L (31.0-37.0) g/dL RDW 16.8 H (11.5-15.5) % Plt Count 562 H (150-450) k/uL Neutrophils # 10.1 H (1.3-7.7) k/uL ABG pH (7.35-7.45) ABG pCO2 (35-45) mmHg ABG pO2 (83-108) mmHg ABG HCO3 (21-25) mmol/L ABG Total CO2 (19-24) mmol/L Chloride 110 H (98-107) mmol/L BUN 24 H (7-17) mg/dL Glucose 138 H (74-99) mg/dL POC Glucose (mg/dL) 167 H (75-99) mg/dL Calcium 8.2 L (8.4-10.2) mg/dL AST 123 H (14-36) U/L ALT 61 H (4-34) U/L Total Protein 5.3 L (6.3-8.2) g/dL Albumin 2.4 L (3.5-5.0) g/dL 12/31/21 12/31/21 Range/Units 05:42 05:45 WBC (3.8-10.6) k/uL RBC (3.80-5.40) m/uL Hgb (11.4-16.0) gm/dL Hct (34.0-46.0) % MCHC (31.0-37.0) g/dL RDW (11.5-15.5) % Plt Count (150-450) k/uL Neutrophils # (1.3-7.7) k/uL ABG pH 7.46 H (7.35-7.45) ABG pCO2 (35-45) mmHg ABG pO2 69 L (83-108) mmHg ABG HCO3 26 H (21-25) mmol/L ABG Total CO2 27 H (19-24) mmol/L Chloride (98-107) mmol/L BUN (7-17) mg/dL Glucose (74-99) mg/dL POC Glucose (mg/dL) 168 H (75-99) mg/dL Calcium (8.4-10.2) mg/dL AST (14-36) U/L ALT (4-34) U/L Total Protein (6.3-8.2) g/dL Albumin (3.5-5.0) g/dL Microbiology - Last 24 Hours (Table) 12/29/21 21:00 Gram Stain - Preliminary Sputum Sputum Culture - Preliminary Assessment and Plan Plan: 1 Symptomatic multivessel coronary artery disease, status post three-vessel coronary artery bypass grafting with DE [place] CRUZ to LAD, SVG to the OM, SVG to the PDA, left atrial appendage exclusion with 35 mm Atriclip on 12/21/2021 2 Routine postoperative ventilator management, patient was successfully weaned and extubated on 12/22/2021. However, on 12/26/2021 the patient developed suspected acute alcohol/drug withdrawal and thoracoabdominal dyssynchrony breathing pattern requiring reintubation and placed back on mechanical ventil ator. The patient has been adequately ventilated at this point in time. Another issue is the possibility of a pneumonia, and ventilator associated pneumonia as the patient is having copious amount of respiratory secretions. He is running a low-grade fever. She is covered with a combination of cefepime and vancomycin. Secretions are copious and the cultures are negative thus far. The pro calcitonin level was at 0.4. She is hemodynamically stable. I would say the rest or secretions are less compared to yesterday. The patient was able to do a spontaneous breathing trial yesterday and the same will be done today. 3 Acute blood loss anemia, an expected outcome of sternotomy, and bypass surgery, requiring transfusion with blood products, patient has received 3 units of packed red blood cells, current hemoglobin 6.6 4 History of substance abuse including cocaine, EtOH, and marijuana. Urine drug screen on the day of surgery on 12/21/2021 is positive for cocaine and benzodiazepines, currently on precedex 5 History of single kidney, with history of nephrectomy 6 Chronic and ongoing tobacco dependence 7 History of CVA 8 Hypertension 9 Hyperlipidemia 10 History of COPD 11 Depression 12 History of hepatitis C Plan: Continue ventilator support, no changes no changes on the ventilator Sputum cultures still pending for now Procal is currently at 0.4 IV cefepime 2g q 12 and vancomycin IV Lasix 40 mg x1 Sedation holiday and gradually wean off Precedex Continue Seroquel 100 mg and change the frequency to twice a day enteral feeding for nutritional support Hemodynamically stable Lines overall inserted, we'll try to eliminate the arterial line in the groin and inserted radial arterial line We'll continue working with the cardiothoracic team regarding her care and she may be potentially a difficult extubation because of her underlying comorbiditi es. I'm going to recommend a unit packed transfusion to the cardiothoracic team. We'll give the patient on the sedation holiday and assess his readiness to wean Continue Seroquel for now for delirium and agitation We'll continue to follow. Critical care evaluation that was done and more than 30 minutes. Time with Patient: Greater than 30
[2021-12-31 11:58] LABS: Glucose,Whole Blood 174 mg/dL (75-99)
--- NOTE | 2021-12-31 12:14 | CDI ---
Documentation Clarification Form Date: 12/30/2021 12:59:00 PM From: Genesis Talbot RN, CCDS Admit Date: 12/21/2021 05:29:00 AM Patient Name: Joanna Chinchilla Visit Number: [id number] Discharge Date: ATTENTION: The Clinical Documentation Specialists (CDI) and [employer] Coding Staff appreciate your assistance in clarifying documentation. Please respond to the clarification below the line at the bottom and electronically sign. The CDI & [employer] Coding staff will review the response and follow-up if needed. Please note: Queries are made part of the Legal Health Record. If you have any questions, please contact the author of this message via ITS. Dr. Clemente Padilla Your patient has restlessness and agitation, possibly secondary to alcohol withdrawal on 12/26 and was reintubated, placed on mechanical ventilation. 12/31/21 She remains on mechanical ventilator. Based on this information and the findings below, is there an additional diagnosis that is clinically appropriate for this patient? 12/26 CXR: Diffuse pleural-parenchymal changes correlate for CHF or ARDS. 12/31 CXR: Similar mild cardiomegaly with interstitial, perihilar, and bibasilar opacities. Likely [id number] left and small right pleural effusion with adjacent atelectasis and/or consolidation, possible sequela of CHF with pulmonary vascular congestion. History/Risk Factors: Daily Alcohol abuse, Hypertension, CVA, Coronary artery disease, Hepatitis C, COPD, current tobacco dependency Clinical Indicators: 12/26 66/-year-old female POD #5 CABG x 3 vessels. She was found to be agitated, restless and diaphoretic. Her lung sounds diminished through bilaterally. Oxygen saturation 95% on 6/L high flow nasal cannula, She was tachypeneic with thoracoabdominal dyssynchrony in her breathing pattern. She was intubation and mechanical ventilator support at approximately 10 AM. 12/26 (0900) 157/81 101 48 100.0 95 % High Flow @10 Labored, accessory muscle use, shallow respiration and tachypnea 12/26 Vital signs: 157/81 101 48 100.0 95 % FIO2 80 12/26 ABG: pH 7.52 pCO2 34, pO2 66 12/31 ABG: pH 7.46 pCO2 36, pO2 69 HCO3 26, Total co2 27 FIO2 40 Treatment: ICU/Telemetry Vent management (per respiratory 12/26/21 @10:00> 96 hours Breathing tx per orders Lasix 40 MG IV Q8 HRS 12/30 x2, 12/31 X1 dose Is there an additional diagnosis that is clinically appropriate for this patient? [x ] Acute Hypoxic Respiratory Failure due to alcohol withdrawal (pO2 <60 mm Hg or SpO2 <91% on room air) [ x] Acute Hypercapnic Respiratory Failure due to alcohol withdrawal (pCO2 >50 and pH <7.35) [ ] Adult respiratory distress syndrome due to alcohol withdrawal [ ] Other Diagnosis, please specify [ ] Unable to determine (Template Last Revised: September 2020) MTDD
[2021-12-31 12:26] LABS: ABG Base Excess 0.1 mmol/L; ABG HCO3 24 mmol/L (21-25); ABG Oxygen Saturation 95.1 % (94-97); ABG PCO2 34 mmHg (35-45); ABG PH 7.46 (7.35-7.45); ABG PO2 70 mmHg (83-108); ABG TCO2 25 mmol/L (19-24)
[2021-12-31] MEDS: amLODIPine 10 MG TAB PO SCH (12:45)
[2021-12-31] MEDS ORDERED: RACEPINEPHRINE 2.25% NEB 0.5 ML NEBU INHALATION STA (14:32)
[2021-12-31] MEDS ORDERED: propofoL 100 ML IV ONE (14:37)
--- NOTE | 2021-12-31 14:49 | XR ---
EXAMINATION TYPE: XR chest 1V portable DATE OF EXAM: 12/31/2021 Comparison: 12/31/2021 Clinical History: 66-year-old female with respiratory distress Findings: Heart mildly enlarged. Left CVC tip within the right atrium. Median sternotomy wires are present. Pos t CABG clips. Retained epicardial pacer leads. Focal bibasilar opacities persist. Patchy densities in the periphery of the right upper lobe are increasing. Impression: Continued bilateral lower lung airspace disease. Slight increasing airspace disease periphery of the right upper lobe.
--- NOTE | 2021-12-31 15:25 | XR ---
EXAMINATION TYPE: XR chest 1V portable DATE OF EXAM: 12/31/2021 Comparison: 12/31/2021 Clinical History: 66-year-old female tube placement Findings: ET tube tip located 2.2 cm from the henrry. Heart mildly enlarged. Atherosclerotic arch calcification s. Continued focal lower lung opacities. Some improvement in aeration at the right upper lobe. Median sternotomy wires with post-CABG clips. NG tube courses below the diaphragm. Epicardial pacer leads. Left CVC tip within the right atrium. Impression: 1. ET tube tip 2.2 cm from the henrry. Attention on follow-up as it may move down to the henrry durin g neck flexion. 2. Similar mild cardiomegaly with bilateral lower lung opacities. Some improvement in aeration in the right upper lobe.
[2021-12-31 15:49] LABS: ABG Base Excess 1.2 mmol/L; ABG HCO3 25 mmol/L (21-25); ABG Oxygen Saturation 97.5 % (94-97); ABG PCO2 36 mmHg (35-45); ABG PH 7.45 (7.35-7.45); ABG PO2 84 mmHg (83-108); ABG TCO2 26 mmol/L (19-24)
[2021-12-31 17:35] LABS: Glucose,Whole Blood 139 mg/dL (75-99)
[2021-12-31] MEDS: SENNOSIDES-DOCUSATE SODIUM 1 EACH TAB PO SCH (20:37)
[2021-12-31 23:32] LABS: Glucose,Whole Blood 140 mg/dL (75-99)
[2022-01-01] MEDS: CEFEPIME 2 GM in SODIUM CHLORIDE 0.9% 100 ML IVPB SCH ×3 (02:40→17:07)
[2022-01-01] MEDS: IPRATROPIUM-ALBUTEROL 3 ML NEB INHALATION SCH ×6 (03:04→23:50)
[2022-01-01] MEDS: HYDROmorphone 1 MG/ML 1 ML SYRINGE IVP PRN ×3 (04:16→16:32)
[2022-01-01 04:46] LABS: Anisocytosis Slight; Basophils % (A) 0 %; Eosinophils # (A) 0.2 k/uL (0-0.7); Eosinophils % (A) 1 %; HCT 22.2 % (34.0-46.0); Hypochromasia Moderate; Lymphocytes # (A) 1.3 k/uL (1.0-4.8); Lymphocytes % (A) 9 %; MCH 25.7 pg (25.0-35.0); MCV 85.6 fL (80.0-100.0); Mean Platelet Volume 8.9; Monocytes # (A) 0.9 k/uL (0-1.0); Monocytes % (A) 7 %; Neutrophils # (A) 11.3 k/uL (1.3-7.7); Neutrophils % (A) 80 %; Platelet Count 631 k/uL (150-450); Poikilocytosis Slight; RBC 2.59 m/uL (3.80-5.40); RDW 17.4 % (11.5-15.5); WBC 14.1 k/uL (3.8-10.6)
[2022-01-01 05:00] LABS: Albumin 2.6 g/dL (3.5-5.0); Calcium 8.5 mg/dL (8.4-10.2); Potassium 3.6 mmol/L (3.5-5.1); Total Protein 5.6 g/dL (6.3-8.2)
[2022-01-01 05:06] LABS: HGB 6.7 gm/dL (11.4-16.0)
[2022-01-01] MEDS: INSULIN ASPART (NovoLOG) 100 UNIT/ML VIAL SQ SCH ×4 (05:44→23:37)
[2022-01-01 05:54] LABS: ABG HCO3 24 mmol/L (21-25); ABG PCO2 36 mmHg (35-45); ABG PH 7.42 (7.35-7.45); ABG PO2 91 mmHg (83-108); ABG TCO2 25 mmol/L (19-24)
[2022-01-01] MEDS ORDERED: POTASSIUM BICARBONATE/CIT AC 20 MEQ TABLET.EFF NG-TUBE SCH (06:00)
[2022-01-01 06:02] LABS: ABG Oxygen Saturation 97.3 % (94-97); Allen Test Performed? No
[2022-01-01] MEDS: THIAMINE 100 MG TAB PO SCH ×2 (06:43→16:37)
--- NOTE | 2022-01-01 06:51 | XR ---
EXAMINATION TYPE: XR chest 1V portable DATE OF EXAM: 01/01/2022 COMPARISON: 12/31/2021 HISTORY: Postcardiac surgery TECHNIQUE: Single frontal view of the chest is obtained. FINDINGS: ET tube is 2.5 cm above the henrry. There is a left jugular central venous catheter which is the right atrium. There are median sternotomy wires. There is moderate pulmonary vascular congestion, interstitial edema and small bilateral pleural effus ions. There is no thorax. There is been no significant change. IMPRESSION: 1. ET tube 2.5 cm above the henrry. 2. Acute cardiopulmonary disease with no interval change.
[2022-01-01] MEDS ORDERED: VANCOMYCIN TROUGH DUE 1 EACH MISC MISCELLANE ONE (08:00)
[2022-01-01] MEDS: HEPARIN SODIUM,PORCINE/PF 5,000 UNIT/0.5 ML SYRINGE SQ SCH ×3 (08:06→23:37)
[2022-01-01] MEDS: CHLORHEXIDINE GLUCONATE 15 ML CUP MUCOUS MEM SCH ×2 (08:06→20:13)
[2022-01-01] MEDS: METOPROLOL TARTRATE 50 MG TAB PO SCH ×2 (08:07→20:14)
[2022-01-01] MEDS: PANTOPRAZOLE 40 MG/10 ML VIAL IVP SCH (08:07)
[2022-01-01] MEDS: CLOPIDOGREL 75 MG TAB PO SCH (08:07)
[2022-01-01] MEDS: ASPIRIN 81 MG PO SCH (08:07)
[2022-01-01] MEDS: ATORVASTATIN 40 MG TAB PO SCH (08:07)
[2022-01-01] MEDS: MULTIVITAMINS, THERA 1 EACH TAB PO SCH (08:07)
[2022-01-01] MEDS ORDERED: FUROSEMIDE 10 MG/ML 4 ML VIAL IV STA (08:07)
[2022-01-01] MEDS: FLUoxetine HCL 20 MG CAP PO SCH (08:07)
[2022-01-01] MEDS: QUEtiapine 100 MG TAB PO SCH ×2 (08:07→20:15)
--- NOTE | 2022-01-01 08:18 | P.PN ---
Subjective Progress Note Date: 01/01/22 Principal diagnosis: Coronary artery disease with left main disease. Previous medical history of hypertension, current tobacco dependence with mild COPD, daily EtOH use (1 pint per day of liquor), occasional marijuana and cocaine use (UDS was positive for cocaine on admission), hepatitis C, CVA 20 years ago, solitary kidney. POD #10 coronary artery bypass grafting 3 vessels, left internal mammary artery to the left anterior descending artery, reverse saphenous vein graft to the obtuse marginal artery, reverse saphenous vein graft to the posterior descending artery, endoscopic harvesting of the left greater saphenous vein, ligation of the left atrial appendage using a 35 mm AtriClip, epi-aortic ultrasound and intraoperative transesophageal echocardiogram Postoperative acute blood loss anemia and thrombocytopenia, expected given hemodilution and cardiopulmonary bypass pump Suspected alcohol/drug withdrawal with thoracoabdominal dyssynchrony breathing pattern, reintubated per Dr. Thornton The patient was seen and examined this morning in the ICU sedated on mechanical ventilation. Yesterday she was extubated for a couple of hours however she became very tachycardic, hypertensive, and tachypneic with stridor present. Subsequently she was reintubated. She remains in sinus rhythm with heart rate in the high 90s, blood pressure stable on no inotropes or pressors. She did have a temp last night 101.1F. Sputum culture from 68 preliminary Gram stain demonstrates moderate gram-positive cocci and moderate gram negative bacilli. She remains on cefepime and vancomycin. Continues to have thick tenacious sputum when suctioned. She does move all extremities although not to command and she is currently sedated with 50 g of propofol. She continues to r eceive tube feeding, urine output stable. Objective - Vital Signs Vital signs: Vital Signs Temp 99 F 01/01/22 04:00 Pulse 92 01/01/22 07:00 Resp 26 H 01/01/22 07:00 BP 111/54 01/01/22 06:30 Pulse Ox 95 01/01/22 07:00 FiO2 60 01/01/22 08:01 Intake & Output 12/31/21 01/01/22 01/01/22 18:59 06:59 18:59 Intake Total 8575.086 0047.379 Output Total 2430 865 Balance -1335.202 422.379 Weight 71.3 kg 74.4 kg Intake: IV 703 519 0.9 @ 20 220 230 Cefepime 2 gm In Sodium 200 Chloride 0.9% 100 ml @ 25 mls/hr IVPB Q8H YADY Rx#: [id number] Pressure Bag 33 39 Vancomycin 1,250 mg In 250 250 Sodium Chloride 0.9% 250 ml @ 125 mls/hr IVPB Q12HR YADY Rx#:[id number] Intake, IV Titration 161.798 88.379 Amount Dexmedetomidine/0.9% NaCl 150.177 (Pmx) 400 mcg In Empty Bag 1 bag @ 0.2 MCG/KG/HR 3.74 mls/hr IV .Q24H [facility]ADY Rx#:[id number] propofoL 1,000 mg In 11.621 88.379 Empty Bag 1 bag @ 5 MCG/ KG/MIN 2.139 mls/hr IV . Q24H YADY Rx#:[id number] Tube Feeding 200 590 Other 30 90 Output: Urine 2430 865 Other: Voiding Method Indwelling Catheter Indwelling Catheter ABP, PAP, CO, CI - Last Documented Arterial Blood Pressure 118/52 Pulmonary Artery Pressure 34/8 Cardiac Output 4.8 Cardiac Index 2.7 - Exam CONSTITUTIONAL: Sedated with propofol on mechanical ventilation, still very twitchy, moving legs continuously RESPIRATORY: Lungs sounds diminished and course bilaterally in the bases. Respirations even, nonlabored. Current ventilator settings FiO2 60%, tidal volume 375, respiratory rate 20, PEEP 5. 8.0 ET tube present, 20 at the lip CARDIOVASCULAR: S1, S2 present. Regular rate and rhythm, sinus rhythm on telemetry. Sternum stable. Palpable peripheral pulses bilaterally. No edema present. Heart hugger, antiembolism stockings, SCDs present. GASTROINTESTINAL: Abdomen soft, nontender, nondistended. Active bowel sounds present 4 quadrants. OG tube present, tolerating tube feeding at 50 mL/hr GENITOURINARY: Young present draining clear, yellow urine. Output overnight 50-80 mL per hour, 3295 mL in the last 24 hours INTEGUMENTARY: Skin is warm and dry with evidence of good perfusion. Anterior chest incision well approximated and covered with dry intact dressing. Left lower extremity EVH site well approximated without redness or drainage. NEUROLOGIC: Cranial nerves II through XII intact INVASIVE LINES AND TUBES: A/V epicardial pacemaker wires present, grounded. Left internal jugular triple-lumen central line, right brachial arterial line present - Allied health notes Allied health notes reviewed: nursing - Labs CBC & Chem 7: 01/01/22 04:07 01/01/22 04:07 Labs: Abnormal Lab Results - Last 24 Hours (Table) 12/31/21 12/31/21 12/31/21 Range/Units 11:56 12:23 15:47 WBC (3.8-10.6) k/uL RBC (3.80-5.40) m/uL Hgb (11.4-16.0) gm/dL Hct (34.0-46.0) % MCHC (31.0-37.0) g/dL RDW (11.5-15.5) % Plt Count (150-450) k/uL Neutrophils # (1.3-7.7) k/uL ABG pH 7.46 H (7.35-7.45) ABG pCO2 34 L (35-45) mmHg ABG pO2 70 L (83-108) mmHg ABG Total CO2 25 H 26 H (19-24) mmol/L ABG O2 Saturation 97.5 H (94-97) % Chloride (98-107) mmol/L BUN (7-17) mg/dL Glucose (74-99) mg/dL POC Glucose (mg/dL) 174 H (75-99) mg/dL AST (14-36) U/L ALT (4-34) U/L Total Protein (6.3-8.2) g/dL Albumin (3.5-5.0) g/dL 12/31/21 12/31/21 01/01/22 Range/Units 17:33 23:30 04:07 WBC (3.8-10.6) k/uL RBC (3.80-5.40) m/uL Hgb (11.4-16.0) gm/dL Hct (34.0-46.0) % MCHC (31.0-37.0) g/dL RDW (11.5-15.5) % Plt Count (150-450) k/uL Neutrophils # (1.3-7.7) k/uL ABG pH (7.35-7.45) ABG pCO2 (35-45) mmHg ABG pO2 (83-108) mmHg ABG Total CO2 (19-24) mmol/L ABG O2 Saturation (94-97) % Chloride 112 H (98-107) mmol/L BUN 30 H (7-17) mg/dL Glucose 128 H (74-99) mg/dL POC Glucose (mg/dL) 139 H 140 H (75-99) mg/dL AST 286 H (14-36) U/L ALT 125 H (4-34) U/L Total Protein 5.6 L (6.3-8.2) g/dL Albumin 2.6 L (3.5-5.0) g/dL 01/01/22 01/01/22 Range/Units 04:07 05:17 WBC 14.1 H (3.8-10.6) k/uL RBC 2.59 L (3.80-5.40) m/uL Hgb 6.7 L* (11.4-16.0) gm/dL Hct 22.2 L (34.0-46.0) % MCHC 30.0 L (31.0-37.0) g/dL RDW 17.4 H (11.5-15.5) % Plt Count 631 H (150-450) k/uL Neutrophils # 11.3 H (1.3-7.7) k/uL ABG pH (7.35-7.45) ABG pCO2 (35-45) mmHg ABG pO2 (83-108) mmHg ABG Total CO2 25 H (19-24) mmol/L ABG O2 Saturation 97.3 H (94-97) % Chloride (98-107) mmol/L BUN (7-17) mg/dL Glucose (74-99) mg/dL POC Glucose (mg/dL) (75-99) mg/dL AST (14-36) U/L ALT (4-34) U/L Total Protein (6.3-8.2) g/dL Albumin (3.5-5.0) g/dL Microbiology - Last 24 Hours (Table) 12/29/21 21:00 Gram Stain - Preliminary Sputum Sputum Culture - Preliminary - Imaging and Cardiology Chest x-ray: report reviewed, image reviewed Assessment and Plan Assessment: 1. Coronary artery disease with left main disease, status post three-vessel CABG 2. History of hypertension, currently hypotensive on levo 3. Current tobacco dependence 4. Mild COPD, preoperative FEV1 was 73% of predicted 5. Daily EtOH use (1 pint per day of liquor) 6. Occasional marijuana and cocaine use (UDS was positive for cocaine on admission) 7. Hepatitis C 8. CVA 20 years ago 9. Solitary kidney. 10. Postoperative acute blood loss anemia and thrombocytopenia, expected 11. Suspected alcohol/drug withdrawal with thoracoabdominal dyssynchrony breathing pattern, reintubated per Dr. Thornton Plan: 1. Continue aspirin, statin, Plavix, beta briana therapy. Will increase beta briana therapy as tolerated. Continue Norvasc 2. Mechanical ventilator, bronchodilators per pulmonology. Wean from ks chanical ventilator as tolerated 3. Will monitor daily labs and x-rays. Electrolyte replacement per protocol. No transfusion at this time 4. GI/DVT prophylaxis 5. Pain control current medication regimen 6. CIWA protocol 7. Insulin management per primary care services. Patient is not diabetic, preoperative hemoglobin A1c 5.4% 8. Patient counseled preoperatively and will continue to be counseled throughout her stay that she should refrain from smoking, drinking, using illicit drugs 9. Continue Young catheter for another 24 hours for strict accurate intake and output. Daily weights 10. Continue tube feedings per dietitian recommendations 11. Antibiotics per pulmonology. Await culture results 12. More recommendations to follow
--- NOTE | 2022-01-01 09:17 | P.PN ---
Subjective Progress Note Date: 01/01/22 This is a 66-year-old -Greek female patient of Dr. Allan with past medical history of hypertension, hyperlipidemia, CVA, single kidney with right nephrectomy, history of hepatitis C, COPD, current tobacco dependence, depression, daily EtOH use, occasional marijuana and cocaine use. Patient had recently been complaining of chest pain and shortness of breath for 2 months, she was seen by cardiology, she follows with Dr. Hutchison, she underwent stress testing which was abnormal and subsequently she had a heart catheterization that demonstrated 85% left main disease, totally occluded RCA with collateral from the left side, proximal LAD stenosis of 95%, mid LAD stenosis of a 50% with distal LAD stenosis of 70%, and circumflex with mild disease of 30-40%. Due to these findings patient was referred to cardiothoracic surgery for surgical revascularization. Transthoracic echocardiogram from 12/09/2021 showed preserved LV function with ejection fraction of 55-60%, mildly increased septal wall thickness and posterior wall thickness. There was mild mitral regurg, aortic valve was structurally normal without significant sclerosis or stenosis or aortic regurgitation, pulmonary artery systolic pressure was normal, there was trace tricuspid regurg. Bedside PFT showed FEV1 of 1.68 L or 73% of predicted, FVC of 2.04, or 68% of predicted, and FEV1 to FEC ratio of 107%, MCV of 63, and this was consistent with mild restrictive pulmonary physiology. Today on 12/21/2021 patient presented to the hospital, and underwent three- vessel coronary artery bypass surgery with [place] CRUZ to the LAD, SVG to the OM, SVG to the PDA,, left atrial appendage exclusion with 35 mm Atriclip, intraoperative CHAD, and appendectomy aortic scanning. Patient has known history of substance abuse, and her urine drug screen the day of surgery on 12/21/2021 was positive for benzodiazepines and cocaine. We seen the patient in the postoperative period in the ICU, patient is still sedated and intubated, on assist-control mode with a rate of 12, tidal lamberts 400, FiO2 of 100% and PEEP of 5, postoperative blood gas shows pO2 156, pCO2 51, and pH of 7.30 and this was done on the above-mentioned ventilator settings and FiO2 had since been dropped down to 80%. Chest x-ray showing ET tube 2 cm above the henrry, right internal jugular [place]-Pamela in place, bilateral pleural and mediastinal chest tubes in place. No pneumothorax. Patient is in sinus mechanism with a rate of 71, blood pressure is 148/63, PA pressures 33/16, CVP 7-8, cardiac output is 3.6, and cardiac index is 2.0. With SVR of 1400. Currently patient is on lactated Ringer's at 50 ML per hour, insulin is at 0.5 units per hour, nitroglycerin is up 5 mics per kilo per minute, and milrinone is at 0.3 mics per kilo per minute. Right and left pleural chest tubes connected together, and mediastinal chest tube with minimal sanguinous output. No air leak noted. Young catheter is in place, patient is producing 50-65 ML per hour. On 12/22/2021 patient seen in follow-up in intensive care unit, she is waking up, she remains intubated on mechanical ventilator, on assist-control with a rate of 12, tidal volume was 400, FiO2 of 60% and PEEP of 5. This point his blood gas showed pO2 of 68, pCO2 of 43, and pH of 7.39, and this was done on those above-mentioned ventilator settings, patient has since been placed on pressure support of 5 and CPAP of 5 with FiO2 of 50%. She is doing good, she is opening eyes to voice, follows simple commands, appears to be in no acute distress, hemodynamically she is been stable, she is in sinus mechanism with a rate of 90 BPM, she remains on small amount of milrinone at 0.1 cameron per kilo per minute, she is on lactated Ringer's at 50 ML per hour, norepinephrine at 0.08 units per kilo per minute, Cleviprex and nitroglycerin infusions have been discontinued. Today's chest x-ray has been reviewed showing scattered bibasilar infiltrates likely related to atelectasis. PA pressure is 36/17, CVP is 9, cardiac output is 4.8, and cardiac index is 2.7. This morning's labs have been reviewed showing globin of 5.9, white blood cell count of 6.4, platelet count of 99, sodium is 138, potassium is 4.2, chloride is 108, BUN is 15, creatinine is 1.05. Patient was transfused with 1 unit of packed red blood cells, repeat labs from this morning show hemoglobin if 6.6, and patient will receive another unit of packed red blood cells. Patient has a mediastinal chest tube in place and 1 left pleural and one right pleural white connected together, and pleural chest tubes put out 650 mL of serosanguineous output in the last 24 hours, and there is been 300 mL of serous and was output from the mediastinal chest tube. Remains on cefazolin for prophylactic antibiotic coverage. Patient has been started on aspirin, Lipitor, Plavix, she is on subcu heparin, metoprolol 12.5 mg twice daily, Protonix for GI prophylaxis. She is on Ativan per CIWA protocol, and thiamine replacements. Patient's weaning parameters and blood gas following spontaneous breathing trials were satisfactory, and spontaneous tidal volumes were 375, respiratory rate was 20, minute ventilation was 7.35 L/m, R SBI was 60, and this was -25, and we were unable to obtain vital. Blood gas was satisfactory with pO2 of 112, pCO2 44, and pH of 7.38 on pressure-support of 5 and CPAP of 5 and FiO2 of 50%. Patient looks comfortable, and she had a positive cuff week as well. She was extubated and tolerating extubation well. Midsternal incision is clean dry and intact, chest tube sites are clean dry and intact, left leg and the right leg Tad wrap. On 12/23/2021 patient seen in follow-up in intensive care unit, today is postoperative day #2, status post three-vessel coronary artery bypass grafting. She was successfully weaned and extubated yesterday on 12/22/2021, however in the evening she developed respiratory difficulty, hypoxia and required to go on BiPAP support with pressures of 12 and 5 and FiO2 of 100%, which was then weaned down to 50%. Her chest x-ray at 1720 last night showed bilateral chest tubes without evidence of pneumothorax, layering bilateral pleural effusions with associated subsegmental atelectasis, and coronary vascular congestion with cardiomegaly. Patient received one-time dose of IV Lasix she has produced 2.9 L in the urine output over the last 24 hours, however still remains in positive fluid balance of 769 mL over last 24 hours, her right and left pleural chest tubes have been by CT surgery last night, and right-sided pleural chest tube has put out 400 mL of bright red blood overnight, left pleural chest tube only put out 25 mL, and mediastinal chest tube 150 the last 24 hours. Patient received 3 units of packed red blood cells yesterday, his labs have been reviewed, hemoglobin is 8.2, white count is 11.1, platelet count is 75. Sodium is 138, potassium 3.8, chloride is 109, BUN is 13, creatinine 0.84. Hemodynamically patient is improved, her norepinephrine drip has been off since yesterday afternoon, milrinone drip has been discontinued this morning, she remains on Vicodin Ringer's at 50 ML per hour, and insulin at 2 units per hour, she is currently awake and alert, she is on 15 L per high flow nasal cannula, sitting up in a recliner, her incentive spirometer effort is suboptimal, patient is achieving about 500 to sometimes 700 mL on the incentive spirometer, lung sounds are diminished, poor inspiratory effort, there are scattered diffuse crackles throughout. Today's chest x-ray shows continued bilateral patchy opacities throughout both but improving aeration in the lower lungs, bilateral pleural chest tubes in place, no appreciable pneumothorax. PA pressure is 35/13, CVP is 7, cardiac output is 5.4, cardiac index 3.1. Patient states her pain is tolerable, she rates it 7 out of 10, and it is in the anterior sternum incisional area. Patient is tolerating sips of clear liquids. Diet has been ordered for her this morning. The patient is seen today 12/24/2021 in follow-up in the intensive care unit. Postoperative day #3 of the three-vessel coronary artery bypass surgery. She is currently sitting up in a chair at the bedside. Awake and alert in no acute distress. Maintaining O2 saturations in the 90s on 6 L high flow nasal cannula. Bilateral end mediastinal chest tubes remain in place. Chest x-ray reveals no evidence of pneumothorax. Persistent mild cardiomegaly with bilateral multifocal edema/infiltrate. No significant change compared to yesterday. She is pulling only about 500 ML's on her incentive spirometer at this morning. She did not utilize BiPAP last night. She remains on lactated Ringer's at 40 miles per hour. Insulin drip at 1 unit per hour. She is status post 3 units of packed red blood cells this admission. White count 10.6. Hemoglobin 8.1. Platelet count 81,000. Sodium 133. Potassium 4.2. BUN 12. Creatinine 0.69. Glucose 127. AST 56. ALT 13. CVP is 7. Cardiac output 4.8. Cardiac index 2.7. Blood pressure stable. Pacer wires in place. Remains in a -500 ML balance. Continued on DuoNeb inhalations. The patient is seen today 12/25/2021 in follow-up in the intensive care unit. This is postoperative day #4. She is currently resting comfortably in bed. Awake and alert in no acute distress. Chest tubes have been removed. She is maintaining O2 saturations in the 90s on 4 L/m per nasal cannula. Chest lactated Ringer's running at 30 MLS per hour. She is continuing to work with the incentive spirometer. Chest x-ray reveals some mild pulmonary edema. Stable cardiomegaly. No evidence of pneumothorax. She is status post 3 units of packed red blood cells this admission. Current hemoglobin 8.7. Platelets 118. White count 6.3. Sodium 134. Potassium 4.1. Bicarb 22. BUN 12. Creatinine 0.61. Glucose 18. AST 54, ALT 14. Initiated on Arixtra. The patient is seen today 12/26/2021 in follow-up in the intensive care unit. This is postoperative day #5. This morning the patient became quite restless and agitated. Trying to climb out of bed. She required Ativan and Haldol throughout the night. Suspecting alcohol and possible drug withdrawal. She was initiated on Precedex at 0.6 mg/kg per hour. Her oxygen requirements were gradually increasing up to 10 L high flow nasal cannula. Chest x-ray revealed moderate pulmonary vascular congestion and interstitial edema. She was given Lasix 40 mg IVP 1. She was diaphoretic. She was tachypneic with thoracoa bdominal dyssynchrony in her breathing pattern. Blood gases revealed a PaO2 of 66, pCO2 of 34 and a pH of 7.48. She is subsequently required intubation and mechanical ventilatory support at approximately 10 AM. She is currently on assist control mode with tidal volume of 400, respiratory rate of 24, FiO2 100% and a PEEP of 5. Follow-up arterial blood gases revealed a pO2 of 309, pCO2 32 and a PH of 7.52. FiO2 was decreased to 50% and rate was decreased to 20. Left internal jugular triple-lumen catheter and right femoral arterial lines were placed. She is currently on propofol at 20 mcg/kg/m. White count 6.5. Hemoglobin 7.5. Platelets 161. Sodium 133. Potassium 3.6. Chloride 103. BUN 11. Creatinine 0.63. Glucose 153. AST 41. ALT 14. She is currently in a -2 L balance. She remains hemodynamically stable. 12/27/2021, the patient is intubated on a mechanical ventilator. Events from yesterday was noted as the patient had to be reintubated and placed on a mechanical ventilator for multiple reasons was significant of which was her altered mentation and her ongoing signs of alcohol withdrawal and delirium. This morning, the patient is on propofol running at extremely 5 mcg/kg per minute and the patient is calm and comfortable. Precedex was discontinued yesterday. She is an assist-control mode of mechanical ventilation at the rate of 1220 with a tidal volume of 400 and FiO2 of 40% with a PEEP of 5. The chest x-ray from today is showing cardiomegaly. ET tube is in a good location for now. The patient has bilateral pleural effusions, stable compared to yesterday. The patient also has a left subclavian triple-lumen catheter in place. Sternal wires are also in place and there are obvious changes related to thoracotomy. The blood gases from today showed a pH of 7.48 with a pCO2 of 33 and pO2 of 87 and the peak airway pressure is around 19. Hemodynamically, the patient is on KVO IV fluids and the patient is on no pressors. She'll be started on enteral feeding for nutritional support. Cardiac rhythm is sinus. Rest of the blood work shows a white cell count of 9 with a hemoglobin of 7.5 and a platelet count of 247 and the electrolytes all within normal limits, blood sugar is at 107 and the patient's low potassium level which was at 3.2 is being replenished. LFTs are normal. Magnesium is also being replaced. This surgical wound sites of dry clean and intact. All of the chest tubes have been discontinued since surgery. 12/28/2021, the patient remains intubated on a mechanical ventilator. A sedation holiday will be given to her today. She remains on propofol running at 50 mcg/kg per minute. No Precedex is running at this point in time. While on the mechanical ventilator, she is quite synchronous and comfortable. She is an assist-control at the rate of 20 with a tidal volume of 375 with an FiO2 of 40% and PEEP of 5. The blood gas showed a pH of 7.5 with a pCO2 of 32 and pO2 of 60. Chest x-ray shows adequate expansion of both lungs. Chest tubes are removed. ET tube is in a good location. There is evidence of pulmonary vessel congestion and cardiomegaly and based on that the cardiothoracic team opted to give her a dose of Lasix. ET tube is in adequate location for now. No evidence of any pneumothorax. The patient has a left subclavian triple-lumen catheter in place. Otherwise, no seizure activity. A sedation holiday will be given to her today. She was started on Seroquel regarding her ongoing delirium and she received a dose of 100 mg overnight. On today's blood work, the white cell count of 14.1 with a hemoglobin of 7.6 and the rest of the electrodes are normal and the potassium is to be replaced at 3.3, BUN is at 14 with a creatinine of 0.7. Afebrile. She is on no antibiotics for now. Producing adequate amount of urine output. Fluid balance has been -1.4 L over the past 24 hours. The [facility] ie is receiving enteral feeding in the form of Vital HP @ rate of 30 12/29/2021, the patient remains sedated with propofol and the patient is currently on 45 mcg/kg per minute. She was given a sedation holiday. I was informed by the nursing staff that the patient was quite agitated. Although at times she was following commands. She was not adequate enough to be considered for extubation as the patient was significantly agitated and the patient was placed back on propofol. As mentioned, she was also started on Seroquel overnight at a dose of 100 mg. This morning, she is well sedated and she is comfortable. She is an assist-control mode at the rate of 20 tidal volume of 375 FiO2 of 40% with a PEEP of 5. Chest x-ray shows no interval changes along with cardiomegaly and some atelectatic changes in lung bases. There is copious amount of yellowish to greenish rest or secretions being suctioned out of the orotracheal tube. This is purulent. She does have a low-grade fever. She had a temperature 100.0 today. She is on no antibiotic coverage for now. Meanwhile, the blood work from today shows a white cell count of 12.7 with a hemoglobin of 7.3 and a pro-calcitonin level was sent out. The blood gas showed a pH of 7.51 with a pCO2 of 36 and pO2 of 68. BUN is at 21 with a creatinine of 0.6 and the sodium level is at 135. She is currently on vital high protein at the rate of 39 mL an hour. Fluid balance over the past 24 hours has been in the order of -426 mL. All of the chest tubes are out. Urine output is adequate. Sternum stable clean and intact. The patient has a triple-lumen catheter in the left subclavian. 12/30/2021, the patient is off propofol a Precedex at 0.3 mcg/kg per minute. She is in the process of being gradually weaned off the Precedex and her mentation will be evaluated. She was having issues with delirium, agitation and asynchrony with a mechanical ventilator. I started on Seroquel also and she is receiving Seroquel at a dose of 100 mg by mouth at bedtime. This has helped her quite a bit. Meanwhile, she remains on a mechanical ventilator. She is an assist-control mode at the rate of 20, tidal volume of 375 and FiO2 of 40% with a PEEP of 5. Blood gases from today shows a pH of 7.48 with a pCO2 of 34 and pO2 of 66. Chest x-ray still showing small bilateral pleural effusion more so on the left along with some hazy bilateral pulmonary infiltrates. This could be related to a ventilator associated pneumonia as the patient is also producing copious amount of respiratory secretions and she is having a low-grade fever and her cultures are still pending for now. Meanwhile, I started this patient on IV cefepime as of yesterday. Respiratory secretions are still copious at this point in time. Surgical wound site is dry clean and intact. The sternum is stable. No signs of any sternal wound infection. The pro-calcitonin level is at 0.4. The white cell count today is up at 15.1. At the same time, there is a drop in hemoglobin down to 6.7 without evidence of any bleeding. The patient remains on vital high protein at the rate of 40 mL an hour. She is on no pressors for now. She is maintaining his home pressure. Renal function is stable with a creatinine of 0.6. Potassium level is at 3.6. Calcium level is a t 8.0. LFTs are slightly abnormal with an AST of 74, ALT of 36 and alk phos of 52. She is in a normal sinus rhythm for now. Extent 2021, the patient remains off propofol and she is only on Precedex for sedation at 1 mcg/kg per minute. She is significant is a mechanical ventilator. Note that the patient was given a sedation holiday yesterday and this point is breathing trial. Nevertheless, we were not comfortable with extubation as the patient was quite borderline and she was having significant amount of secretions. Based on that, we aborted the reading trial. The same will be done today. She is an assist-control mode of mechanical ventilation, and she is at the rate of 20 with a tidal volume of of 10 75 mL with an FiO2 of 40% and PEEP of 5. Chest x-ray is unchanged and the patient is being diuresed. ET tube is in a good location. No evidence of any pneumothorax. Chest tubes have been removed. The patient's overall fluid balance has been negative as the patient is being diuresis with IV Lasix. She is having copious amount of rest or secretions. I modified antibiotics and I added vancomycin in combination with cefepime. The sputum cultures are still pending for now. In terms of fever, the patient is having one temperature spike yesterday with a T-max of 101.8. Th is morning she is afebrile. She is on no pressors for now. She is receiving enteral feeding for nutritional support and she is on vital high protein at the rate of 40 mL an hour. Note that into regards to her agitation, we modified her static with those and the patient is currently on Seroquel 100 mg by mouth twice a day. The hemoglobin today is at 6.6. Cardiothoracic surgery opted not to tra nsfuse this patient. The white cell count at 13.4. Review is a 24 with a creatinine of 0.7 with a sodium level of 139. No other the hemoglobin from yesterday was at 6.7 and ultimately the patient is going to need a transfusion 01/01/2022, the patient's is being seen in follow-up in the intensive care unit. Events from yesterday was noted. Note that the patient was given a sedation holiday and following that she was able to pass this point is breathing trial. I extubated the patient to a BiPAP and after probably 2 hours, the patient became more tachypneic and short of breath and agitated. Accordingly, she had to be reintubated based of worsening hemodynamics and hypoxemia also. This morning, she is back on mechanical ventilator. She is sedated with a propofol at 50 mcg/kg per minute. She is an assist-control mode of mechanical ventilation at the rate of 20 with a tidal volume of 375 and FiO2 is currently at 60% with a PEEP of 5. Peak airway pressures around 20. Respiratory secretions have improved over the past 24 hours. As for the chest x-ray, the patient has atelectasis and bilateral pleural effusions right more than left along with some increased pulmonary vascular markings bilaterally. The patient has a left subclavian triple-lumen catheter and the ET tube was around 2 cm above the henrry. In comparison with yesterday's chest x-ray, findings as essentially stable. Note that we culture the patient sputum on multiple locations. There is cultures are still negative for any microbial growth. The patient had copious purulent respiratory secretions and the patient was covered with a combination of IV cefepime and vancomycin. At this point in time, the [facility] is running a temperature of 11.1 from midnight and subsequently the temperature dropped down to 99. The patient's white cell count is at 14.1. The pro-calcitonin level was 0.4. The blood gases from today showed a pH of 7.42 with a pCO2 of 36 and pO2 of 91. The creatinine is at 0.8 with a sodium level of 141. Hemoglobin remains low at X.7. The patient is receiving enteral feeding for nutritional support. This was restarted yesterday and the patient is currently on vitamin Ht at the rate of 50 mL an hour. She is resting comfortably in bed. She is arousable once off sedation. She was given another dose of Lasix today 40 mg IV push by cardiothoracic surgery team. Objective - Vital Signs Vital signs: Vital Signs Temp 99 F 01/01/22 04:00 Pulse 95 01/01/22 08:27 Resp 21 01/01/22 08:27 BP 111/54 01/01/22 06:30 Pulse Ox 95 01/01/22 07:00 FiO2 60 01/01/22 08:01 Intake & Output 12/31/21 01/01/22 01/01/22 18:59 06:59 18:59 Intake Total 3039.314 9162.379 Output Total 2430 865 Balance -1335.202 422.379 Weight 71.3 kg 74.4 kg Intake: IV 703 519 0.9 @ 20 220 230 Cefepime 2 gm In Sodium 200 Chloride 0.9% 100 ml @ 25 mls/hr IVPB Q8H [facility] Rx#: [id number] Pressure Bag 33 39 Vancomycin 1,250 mg In 250 250 Sodium Chloride 0.9% 250 ml @ 125 mls/hr IVPB Q12HR [facility] Rx#:[id number] Intake, IV Titration 161.798 88.379 Amount Dexmedetomidine/0.9% NaCl 150.177 (Pmx) 400 mcg In Empty Bag 1 bag @ 0.2 MCG/KG/HR 3.74 mls/hr IV .Q24H [facility] Rx#:[id number] propofoL 1,000 mg In 11.621 88.379 Empty Bag 1 bag @ 5 MCG/ KG/MIN 2.139 mls/hr IV . Q24H [facility] Rx#:[id number] Tube Feeding 200 590 Other 30 90 Output: Urine 2430 865 Other: Voiding Method Indwelling Catheter Indwelling Catheter ABP, PAP, CO, CI - Last Documented Arterial Blood Pressure 118/52 Pulmonary Artery Pressure 34/8 Cardiac Output 4.8 Cardiac Index 2.7 - Exam GENERAL EXAM: Intubated, sedated 66-year-old female patient, comfortable in no apparent distress. Sedated with propofol and the patient is calm and comfortable. 6 is a mechanical ventilator. Orogastric and orotracheal tube are both in place. HEAD: Normocephalic/atraumatic. EYES: Normal reaction of pupils, equal size. Conjunctiva pink, sclera white. NOSE: Clear with pink turbinates. THROAT: No erythema or exudates. NECK: No masses, no JVD, no thyroid enlargement, no adenopathy. Left internal jugular triple-lumen catheter in place. CHEST: Heart hugger in place Symmetrical expansion. Midsternal incision is clean dry and intact, chest tubes removed LUNGS: Equal air entry with no crackles, wheeze, rhonchi or dullness. CVS: Regular rate and rhythm, normal S1 and S2, no gallops, no murmurs, no rubs ABDOMEN: Soft, nontender. No hepatosplenomegaly, normal bowel sounds, no guarding or rigidity. EXTREMITIES: Right femoral arterial line in place. No clubbing, no edema, no cyanosis, 2+ pulses and upper and lower extremities. MUSCULOSKELETAL: Muscle strength and tone normal. SPINE: No scoliosis or deformity SKIN: No rashes, left leg interrupted incision covered with Tad wrap - Labs CBC & Chem 7: 01/01/22 04:07 01/01/22 04:07 Labs: Abnormal Lab Results - Last 24 Hours (Table) 12/31/21 12/31/21 12/31/21 Range/Units 11:56 12:23 15:47 WBC (3.8-10.6) k/uL RBC (3.80-5.40) m/uL Hgb (11.4-16.0) gm/dL Hct (34.0-46.0) % MCHC (31.0-37.0) g/dL RDW (11.5-15.5) % Plt Count (150-450) k/uL Neutrophils # (1.3-7.7) k/uL ABG pH 7.46 H (7.35-7.45) ABG pCO2 34 L (35-45) mmHg ABG pO2 70 L (83-108) mmHg ABG Total CO2 25 H 26 H (19-24) mmol/L ABG O2 Saturation 97.5 H (94-97) % Chloride (98-107) mmol/L BUN (7-17) mg/dL Glucose (74-99) mg/dL POC Glucose (mg/dL) 174 H (75-99) mg/dL AST (14-36) U/L ALT (4-34) U/L Total Protein (6.3-8.2) g/dL Albumin (3.5-5.0) g/dL 12/31/21 12/31/21 01/01/22 Range/Units 17:33 23:30 04:07 WBC (3.8-10.6) k/uL RBC (3.80-5.40) m/uL Hgb (11.4-16.0) gm/dL Hct (34.0-46.0) % MCHC (31.0-37.0) g/dL RDW (11.5-15.5) % Plt Count (150-450) k/uL Neutrophils # (1.3-7.7) k/uL ABG pH (7.35-7.45) ABG pCO2 (35-45) mmHg ABG pO2 (83-108) mmHg ABG Total CO2 (19-24) mmol/L ABG O2 Saturation (94-97) % Chloride 112 H (98-107) mmol/L BUN 30 H (7-17) mg/dL Glucose 128 H (74-99) mg/dL POC Glucose (mg/dL) 139 H 140 H (75-99) mg/dL AST 286 H (14-36) U/L ALT 125 H (4-34) U/L Total Protein 5.6 L (6.3-8.2) g/dL Albumin 2.6 L (3.5-5.0) g/dL 01/01/22 01/01/22 Range/Units 04:07 05:17 WBC 14.1 H (3.8-10.6) k/uL RBC 2.59 L (3.80-5.40) m/uL Hgb 6.7 L* (11.4-16.0) gm/dL Hct 22.2 L (34.0-46.0) % MCHC 30.0 L (31.0-37.0) g/dL RDW 17.4 H (11.5-15.5) % Plt Count 631 H (150-450) k/uL Neutrophils # 11.3 H (1.3-7.7) k/uL ABG pH (7.35-7.45) ABG pCO2 (35-45) mmHg ABG pO2 (83-108) mmHg ABG Total CO2 25 H (19-24) mmol/L ABG O2 Saturation 97.3 H (94-97) % Chloride (98-107) mmol/L BUN (7-17) mg/dL Glucose (74-99) mg/dL POC Glucose (mg/dL) (75-99) mg/dL AST (14-36) U/L ALT (4-34) U/L Total Protein (6.3-8.2) g/dL Albumin (3.5-5.0) g/dL Microbiology - Last 24 Hours (Table) 12/29/21 21:00 Gram Stain - Preliminary Sputum Sputum Culture - Preliminary Assessment and Plan Plan: 1 Symptomatic multivessel coronary artery disease, status post three-vessel coronary artery bypass grafting with DE LA CRUZ to LAD, SVG to the OM, SVG to the PDA, left atrial appendage exclusion with 35 mm Atriclip on 12/21/2021 2 Routine postoperative ventilator management, patient was successfully weaned and extubated on 12/22/2021. However, on 12/26/2021 the patient developed suspected acute alcohol/drug withdrawal and thoracoabdominal dyssynchrony breathing pattern requiring reintubation and placed back on mechanical ventilator. The patient given another extubation trial on 12/31/2021 and the patient yet again failed within few hours. The patient is currently back on a mechanical ventilator and she is sedated and she is adequately oxygenated at this point in time. Chest x-ray was noted. There is clinical evidence of pneumonia as the patient had increased purulent respiratory secretions and fever. The patient is covered with a combination of cefepime and vancomycin. Cultures are all negative thus far. Chest x-ray findings are stable for now. 3 Acute blood loss anemia, an expected outcome of sternotomy, and bypass surgery, requiring transfusion with blood products, patient has received 3 units of packed red blood cells, current hemoglobin 6. 7 4 History of substance abuse including cocaine, EtOH, and marijuana. Urine drug screen on the day of surgery on 12/21/2021 is positive for cocaine and benzodiazepines, currently on precedex 5 History of single kidney, with history of nephrectomy 6 Chronic and ongoing tobacco dependence 7 History of CVA 8 Hypertension 9 Hyperlipidemia 10 History of COPD 11 Depression 12 History of hepatitis C Plan: Continue ventilator support, no changes no changes on the ventilator and drop the FiO2 down to 50% and later on to 40% if possible. Sputum cultures still pending for now, cultures of been negative thus far Procal is currently at 0.4 IV cefepime 2g q 12 and vancomycin and this was given due to high suspicion for underlying pneumonia as the patient was having purulent copious rest or secretions and she was febrile. IV Lasix 40 mg x1 and will monitor the fluid balance. IV fluids are currently at KVO We'll keep her off sedation today and we'll do another sedation holiday tomorrow. Continue Seroquel 100 mg and change the frequency to twice a day enteral feeding for nutritional support Hemodynamically stable Lines overall inserted, we'll try to eliminate the arterial line in the groin and inserted radial arterial line I am considering a third trial and extubation probably within next 24-48 hours. If she fails, she will need a tracheostomy tube for slow progressive. We'll discuss this with the cardiothoracic team. We'll continue to follow. We'll continue to follow. Critical care evaluation that was done and more than 30 minutes.
[2022-01-01] MEDS: VANCOMYCIN 1,250 MG in SODIUM CHLORIDE 0.9% 250 ML IVPB SCH ×2 (09:21→20:16)
[2022-01-01 11:43] LABS: Glucose,Whole Blood 160 mg/dL (75-99)
[2022-01-01] MEDS: amLODIPine 10 MG TAB PO SCH (11:47)
[2022-01-01] MEDS ORDERED: POTASSIUM BICARBONATE/CIT AC 20 MEQ TABLET.EFF PO ONE (12:00)
[2022-01-01 17:50] LABS: Glucose,Whole Blood 133 mg/dL (75-99)
[2022-01-01] MEDS: SENNOSIDES-DOCUSATE SODIUM 1 EACH TAB PO SCH (20:15)
[2022-01-01 23:35] LABS: Glucose,Whole Blood 131 mg/dL (75-99)
[2022-01-02] MEDS: HYDROmorphone 1 MG/ML 1 ML SYRINGE IVP PRN ×3 (00:01→10:40)
[2022-01-02] MEDS: CEFEPIME 2 GM in SODIUM CHLORIDE 0.9% 100 ML IVPB SCH ×3 (01:59→17:29)
[2022-01-02] MEDS: IPRATROPIUM-ALBUTEROL 3 ML NEB INHALATION SCH ×7 (04:11→19:29)
[2022-01-02 05:55] LABS: ABG Base Excess 1.4 mmol/L; ABG HCO3 25 mmol/L (21-25); ABG Oxygen Saturation 98.4 % (94-97); ABG PCO2 34 mmHg (35-45); ABG PH 7.48 (7.35-7.45); ABG PO2 100 mmHg (83-108); ABG TCO2 26 mmol/L (19-24)
[2022-01-02 06:05] LABS: Glucose,Whole Blood 135 mg/dL (75-99)
[2022-01-02 06:07] LABS: Allen Test Performed? No
[2022-01-02 06:10] LABS: ALT 100 U/L (4-34); AST 138 U/L (14-36); African American GFR (CKD) >90 (>60 ml/min/1.73 sqM); Albumin 2.6 g/dL (3.5-5.0); Alkaline Phosphatase 56 U/L (38-126); Anion Gap 6 mmol/L; Blood Urea Nitrogen 27 mg/dL (7-17); Calcium 8.5 mg/dL (8.4-10.2); Carbon Dioxide 23 mmol/L (22-30); Chloride 115 mmol/L (98-107); Glucose 138 mg/dL (74-99); Non-African American GFR(CKD) >90 (>60 ml/min/1.73 sqM); Potassium 4.1 mmol/L (3.5-5.1); Sodium 144 mmol/L (137-145); Total Bilirubin 0.8 mg/dL (0.2-1.3); Total Protein 5.7 g/dL (6.3-8.2)
--- NOTE | 2022-01-02 06:30 | XR ---
EXAMINATION TYPE: XR chest 1V portable DATE OF EXAM: 01/02/2022 COMPARISON: 01/01/2022 HISTORY: Postcardiac surgery TECHNIQUE: Single frontal view of the chest is obtained. FINDINGS: There is an ET tube 3.2 cm stomach. There is an NG tube within the stomach. Left central v enous catheter tip of which is in the right atrium. There are postsurgical changes of cardiac surgery The heart remains enlarged. Persistent small bilateral pleural effusions. There is pulmonary vascular congestion essentially unchanged compared to previous. There is no pneumothorax IMPRESSION: 1. ET tube 3.2 cm above the henrry. 2. No change compared to the previous regarding cardiomegaly, pulmonary vascular congestion and pleur al effusions.
[2022-01-02] MEDS: INSULIN ASPART (NovoLOG) 100 UNIT/ML VIAL SQ SCH ×3 (06:35→17:32)
[2022-01-02 06:38] LABS: Anisocytosis Slight; HCT 21.2 % (34.0-46.0); Hypochromasia Marked; MCH 26.6 pg (25.0-35.0); MCHC 30.7 g/dL (31.0-37.0); MCV 86.9 fL (80.0-100.0); Mean Platelet Volume 11.3; Poikilocytosis Slight; RBC 2.44 m/uL (3.80-5.40); RDW 17.6 % (11.5-15.5)
[2022-01-02 06:48] LABS: HGB 6.5 gm/dL (11.4-16.0)
--- NOTE | 2022-01-02 07:59 | P.PN ---
Subjective Progress Note Date: 01/02/22 Principal diagnosis: Coronary artery disease with left main disease. Previous medical history of hypertension, current tobacco dependence with mild COPD, daily EtOH use (1 pint per day of liquor), occasional marijuana and cocaine use (UDS was positive for cocaine on admission), hepatitis C, CVA 20 years ago, solitary kidney. POD #11 coronary artery bypass grafting 3 vessels, left internal mammary artery to the left anterior descending artery, reverse saphenous vein graft to the obtuse marginal artery, reverse saphenous vein graft to the posterior descending artery, endoscopic harvesting of the left greater saphenous vein, ligation of the left atrial appendage using a 35 mm AtriClip, epi-aortic ultrasound and intraoperative transesophageal echocardiogram Postoperative acute blood loss anemia and thrombocytopenia, expected given hemodilution and cardiopulmonary bypass pump Suspected alcohol/drug withdrawal with thoracoabdominal dyssynchrony breathing pattern, reintubated per Dr. Thornton The patient was seen and examined this morning in the ICU sedated on mechanical ventilation. She remains in sinus rhythm, blood pressure stable on no inotropes or pressors. Tmax 99.3F in the last 24 hours. Sputum culture from 6822 preliminary Gram stain demonstrates moderate gram-positive cocci and moderate gram negative bacilli. She remains on cefepime and vancomycin. Continues to have copious amounts of sputum but it has thinned out. She does move all extremities although not to command and she is currently sedated with 50 g of propofol. She continues to receive tube feeding. Hemoglobin 6.5 this morning, has remained in the 6.5-6.7 range for the last 3 days, patient is not tachycardic or hypotensive, oxygenating well with good urine output, no transfus ions have been given. Objective - Vital Signs Vital signs: Vital Signs Temp 98.7 F 01/02/22 04:00 Pulse 93 01/02/22 06:00 Resp 33 H 01/02/22 06:00 BP 138/65 01/02/22 06:00 Pulse Ox 99 01/02/22 06:00 FiO2 40 01/02/22 06:00 Intake & Output 01/01/22 01/02/22 01/02/22 18:59 06:59 18:59 Intake Total 8206.493 9955.472 Output Total 1445 1000 Balance 151.120 809.472 Weight 72.8 kg Intake: IV 755 763 0.9 @ 20 260 260 Cefepime 2 gm In Sodium 200 175 Chloride 0.9% 100 ml @ 25 mls/hr IVPB Q8H YADY Rx#: [id number] Pressure Bag 45 78 Vancomycin 1,250 mg In 250 250 Sodium Chloride 0.9% 250 ml @ 125 mls/hr IVPB Q12HR YADY Rx#:[id number] Intake, IV Titration 171.120 253.472 Amount propofoL 1,000 mg In 171.120 253.472 Empty Bag 1 bag @ 5 MCG/ KG/MIN 2.139 mls/hr IV . Q24H YADY Rx#:[id number] Tube Feeding 550 650 Other 120 143 Output: Urine 1445 1000 Other: Voiding Method Indwelling Catheter Indwelling Catheter # Bowel Movements 1 ABP, PAP, CO, CI - Last Documented Arterial Blood Pressure 102/85 Pulmonary Artery Pressure 34/8 Cardiac Output 4.8 Cardiac Index 2.7 - Exam CONSTITUTIONAL: Sedated with propofol on mechanical ventilation, still moving legs continuously, opens eyes when name is called RESPIRATORY: Lungs sounds diminished bilaterally in the bases. Respirations even, nonlabored. Current ventilator settings FiO2 40%, tidal volume 375, resp iratory rate 20, PEEP 5. 8.0 ET tube present, 20 at the lip CARDIOVASCULAR: S1, S2 present. Regular rate and rhythm, sinus rhythm on telemetry. Sternum stable. Palpable peripheral pulses bilaterally. No edema present. Heart hugger, antiembolism stockings, SCDs present. GASTROINTESTINAL: Abdomen soft, nontender, nondistended. Active bowel sounds present 4 quadrants. OG tube present, tolerating tube feeding at 50 mL/hr. Last bowel movement 01/01/22 GENITOURINARY: Young present draining clear, yellow urine. Output overnight 70-100 mL per hour, 2370 mL in the last 24 hours INTEGUMENTARY: Skin is warm and dry with evidence of good perfusion. Anterior chest incision well approximated and covered with dry intact dressing. Left lower extremity EVH site well approximated without redness or drainage. NEUROLOGIC: Cranial nerves II through XII intact INVASIVE LINES AND TUBES: A/V epicardial pacemaker wires present, grounded. Left internal jugular triple-lumen central line, right brachial arterial line present - Allied health notes Allied health notes reviewed: nursing - Labs CBC & Chem 7: 01/02/22 05:40 01/02/22 05:40 Labs: Abnormal Lab Results - Last 24 Hours (Table) 01/01/22 01/01/22 01/01/22 Range/Units 11:41 17:49 23:33 WBC (3.8-10.6) k/uL RBC (3.80-5.40) m/uL Hgb (11.4-16.0) gm/dL Hct (34.0-46.0) % MCHC (31.0-37.0) g/dL RDW (11.5-15.5) % ABG pH (7.35-7.45) ABG pCO2 (35-45) mmHg ABG Total CO2 (19-24) mmol/L ABG O2 Saturation (94-97) % Chloride (98-107) mmol/L BUN (7-17) mg/dL Glucose (74-99) mg/dL POC Glucose (mg/dL) 160 H 133 H 131 H (75-99) mg/dL AST (14-36) U/L ALT (4-34) U/L Total Protein (6.3-8.2) g/dL Albumin (3.5-5.0) g/dL 01/02/22 01/02/22 01/02/22 Range/Units 05:28 05:40 05:40 WBC 11.9 H (3.8-10.6) k/uL RBC 2.44 L (3.80-5.40) m/uL Hgb 6.5 L* (11.4-16.0) gm/dL Hct 21.2 L (34.0-46.0) % MCHC 30.7 L (31.0-37.0) g/dL RDW 17.6 H (11.5-15.5) % ABG pH 7.48 H (7.35-7.45) ABG pCO2 34 L (35-45) mmHg ABG Total CO2 26 H (19-24) mmol/L ABG O2 Saturation 98.4 H (94-97) % Chloride 115 H (98-107) mmol/L BUN 27 H (7-17) mg/dL Glucose 138 H (74-99) mg/dL POC Glucose (mg/dL) (75-99) mg/dL AST 138 H (14-36) U/L ALT 100 H (4-34) U/L Total Protein 5.7 L (6.3-8.2) g/dL Albumin 2.6 L (3.5-5.0) g/dL 01/02/22 Range/Units 06:04 WBC (3.8-10.6) k/uL RBC (3.80-5.40) m/uL Hgb (11.4-16.0) gm/dL Hct (34.0-46.0) % MCHC (31.0-37.0) g/dL RDW (11.5-15.5) % ABG pH (7.35-7.45) ABG pCO2 (35-45) mmHg ABG Total CO2 (19-24) mmol/L ABG O2 Saturation (94-97) % Chloride (98-107) mmol/L BUN (7-17) mg/dL Glucose (74-99) mg/dL POC Glucose (mg/dL) 135 H (75-99) mg/dL AST (14-36) U/L ALT (4-34) U/L Total Protein (6.3-8.2) g/dL Albumin (3.5-5.0) g/dL Microbiology - Last 24 Hours (Table) 12/29/21 21:00 Gram Stain - Preliminary Sputum Sputum Culture - Preliminary Streptococcus pneumoniae Diphtheroid species - Imaging and Cardiology Chest x-ray: report reviewed, image reviewed Assessment and Plan Assessment: 1. Coronary artery disease with left main disease, status post three-vessel CABG 2. History of hypertension, currently hypotensive on levo 3. Current tobacco dependence 4. Mild COPD, preoperative FEV1 was 73% of predicted 5. Daily EtOH use (1 pint per day of liquor) 6. Occasional marijuana and cocaine use (UDS was positive for cocaine on admis steve) 7. Hepatitis C 8. CVA 20 years ago 9. Solitary kidney. 10. Postoperative acute blood loss anemia and thrombocytopenia, expected 11. Suspected alcohol/drug withdrawal with thoracoabdominal dyssynchrony breathing pattern, reintubated per Dr. Thornton Plan: 1. Continue aspirin, statin, Plavix, beta briana therapy. Will increase beta briana therapy as tolerated. Continue Norvasc 2. Mechanical ventilator, bronchodilators per pulmonology. Wean from mechanical ventilator as tolerated 3. Will monitor daily labs and x-rays. Electrolyte replacement per protocol. No transfusion at this time 4. GI/DVT prophylaxis 5. Pain control current medication regimen 6. CIWA protocol 7. Insulin management per primary care services. Patient is not diabetic, preoperative hemoglobin A1c 5.4% 8. Patient counseled preoperatively and will continue to be counseled th roughout her stay that she should refrain from smoking, drinking, using illicit drugs 9. Continue Young catheter for another 24 hours for strict accurate intake and output. Daily weights 10. Continue tube feedings per dietitian recommendations 11. Antibiotics per pulmonology. Await culture results 12. More recommendations to follow
[2022-01-02] MEDS: ATORVASTATIN 40 MG TAB PO SCH (08:04)
[2022-01-02] MEDS: CHLORHEXIDINE GLUCONATE 15 ML CUP MUCOUS MEM SCH ×2 (08:04→20:55)
[2022-01-02] MEDS: PANTOPRAZOLE 40 MG/10 ML VIAL IVP SCH (08:04)
[2022-01-02] MEDS: HEPARIN SODIUM,PORCINE/PF 5,000 UNIT/0.5 ML SYRINGE SQ SCH ×2 (08:04→17:28)
[2022-01-02] MEDS: CLOPIDOGREL 75 MG TAB PO SCH (08:05)
[2022-01-02] MEDS: METOPROLOL TARTRATE 50 MG TAB PO SCH ×2 (08:05→20:55)
[2022-01-02] MEDS: QUEtiapine 100 MG TAB PO SCH ×2 (08:05→20:55)
[2022-01-02] MEDS: FLUoxetine HCL 20 MG CAP PO SCH (08:05)
[2022-01-02] MEDS: MULTIVITAMINS, THERA 1 EACH TAB PO SCH (08:05)
[2022-01-02] MEDS: ASPIRIN 81 MG PO SCH (08:05)
[2022-01-02] MEDS: THIAMINE 100 MG TAB PO SCH ×2 (08:05→17:29)
[2022-01-02] MEDS: VANCOMYCIN 1,250 MG in SODIUM CHLORIDE 0.9% 250 ML IVPB SCH ×2 (08:06→20:56)
[2022-01-02 08:35] LABS: Basophils # (M) 0.12 k/uL (0-0.2); Eosinophils # (M) 0.35 k/uL (0-0.7); Lymphocytes # (M) 1.06 k/uL (1.0-4.8); Monocytes # (M) 1.18 k/uL (0-1.0); Neutrophils # (M) 9.09 k/uL (1.3-7.7); Neutrophils % (M) 77 %; Nucleated Red Blood Cells 1 /100 WBC (0-0); Total Cells Counted 100; WBC 11.8 k/uL (3.8-10.6)
[2022-01-02 08:38] LABS: Platelet Count 419 k/uL (150-450)
[2022-01-02 08:39] LABS: Mixed Population RBC Present; Polychromasia Present; Target Cells Present
[2022-01-02] MEDS ORDERED: FUROSEMIDE 10 MG/ML 4 ML VIAL IV STA ×2 (08:46→13:50)
--- NOTE | 2022-01-02 09:20 | US ---
EXAMINATION TYPE: US chest DATE OF EXAM: 01/02/2022 COMPARISON: CLINICAL HISTORY: benjy for thoracentesis. ICU patient Difficult exam due to uncooperative patient and needed multiple people to hold pt up TECHNIQUE: Targeted ultrasound of the posterior lower bilateral hemithoraces EXAM MEASUREMENTS: Right Pleural Effusion pocket size: 2.8 cm Left Pleural Effusion pocket size: 5.3 cm Left skin surface to fluid distance: 3.2 cm Right side NOT marked for possible thoracentesis outside the dept. Left side marked for possible thoracentesis outside the dept. Pulmonologists are able to review the images in the patient?s EMR. IMPRESSIONS: Significant left pleural effusion.
--- NOTE | 2022-01-02 10:29 | P.PN ---
Subjective Progress Note Date: 01/02/22 This is a 66-year-old -[place] female patient of Dr. Allan with past medical history of hypertension, hyperlipidemia, CVA, single kidney with right nephrectomy, history of hepatitis C, COPD, current tobacco dependence, depression, daily EtOH use, occasional marijuana and cocaine use. Patient had recently been complaining of chest pain and shortness of breath for 2 months, she was seen by cardiology, she follows with Dr. Hutchison, she underwent stress testing which was abnormal and subsequently she had a heart catheterization that demonstrated 85% left main disease, totally occluded RCA with collateral from the left side, proximal LAD stenosis of 95%, mid LAD stenosis of a 50% with distal LAD stenosis of 70%, and circumflex with mild disease of 30-40%. Due to these findings patient was referred to cardiothoracic surgery for surgical revascularization. Transthoracic echocardiogram from 12/09/2021 showed preserved LV function with ejection fraction of 55-60%, mildly increased septal wall thickness and posterior wall thickness. There was mild mitral regurg, aortic valve was structurally normal without significant sclerosis or stenosis or aortic regurgitation, pulmonary artery systolic pressure was normal, there was trace tricuspid regurg. Bedside PFT showed FEV1 of 1.68 L or 73% of predicted, FVC of 2.04, or 68% of predicted, and FEV1 to FEC ratio of 107%, MCV of 63, and this was consistent with mild restrictive pulmonary physiology. Today on 12/21/2021 patient presented to the hospital, and underwent three- vessel coronary artery bypass surgery with DE [place] CRUZ to the LAD, SVG to the OM, SVG to the PDA,, left atrial appendage exclusion with 35 mm Atriclip, intraoperative CHAD, and appendectomy aortic scanning. Patient has known history of substance abuse, and her urine drug screen the day of surgery on 12/21/2021 was positive for benzodiazepines and cocaine. We seen the patient in the postoperative period in the ICU, patient is still sedated and intubated, on assist-control mode with a rate of 12, tidal lamberts 400, FiO2 of 100% and PEEP of 5, postoperative blood gas shows pO2 156, pCO2 51, and pH of 7.30 and this was done on the above-mentioned ventilator settings and FiO2 had since been dropped down to 80%. Chest x-ray showing ET tube 2 cm above the henrry, right internal jugular Wideman-Pamela in place, bilateral pleural and mediastinal chest tubes in place. No pneumothorax. Patient is in sinus mechanism with a rate of 71, blood pressure is 148/63, PA pressures 33/16, CVP 7-8, cardiac output is 3.6, and cardiac index is 2.0. With SVR of 1400. Currently patient is on lactated Ringer's at 50 ML per hour, insulin is at 0.5 units per hour, nitroglycerin is up 5 mics per kilo per minute, and milrinone is at 0.3 mics per kilo per minute. Right and left pleural chest tubes connected together, and mediastinal chest tube with minimal sanguinous output. No air leak noted. Young catheter is in place, patient is producing 50-65 ML per hour. On 12/22/2021 patient seen in follow-up in intensive care unit, she is waking up, she remains intubated on mechanical ventilator, on assist-control with a rate of 12, tidal volume was 400, FiO2 of 60% and PEEP of 5. This point his blood gas showed pO2 of 68, pCO2 of 43, and pH of 7.39, and this was done on those above-mentioned ventilator settings, patient has since been placed on pressure support of 5 and CPAP of 5 with FiO2 of 50%. She is doing good, she is opening eyes to voice, follows simple commands, appears to be in no acute distress, hemodynamically she is been stable, she is in sinus mechanism with a rate of 90 BPM, she remains on small amount of milrinone at 0.1 cameron per kilo per minute, she is on lactated Ringer's at 50 ML per hour, norepinephrine at 0.08 units per kilo per minute, Cleviprex and nitroglycerin infusions have been discontinued. Today's chest x-ray has been reviewed showing scattered bibasilar infiltrates likely related to atelectasis. PA pressure is 36/17, CVP is 9, cardiac output is 4.8, and cardiac index is 2.7. This morning's labs have been reviewed showing globin of 5.9, white blood cell count of 6.4, platelet count of 99, sodium is 138, potassium is 4.2, chloride is 108, BUN is 15, creatinine is 1.05. Patient was transfused with 1 unit of packed red blood cells, repeat labs from this morning show hemoglobin if 6.6, and patient will receive another unit of packed red blood cells. Patient has a mediastinal chest tube in place and 1 left pleural and one right pleural white connected together, and pleural chest tubes put out 650 mL of serosanguineous output in the last 24 hours, and there is been 300 mL of serous and was output from the mediastinal chest tube. Remains on cefazolin for prophylactic antibiotic coverage. Patient has been started on aspirin, Lipitor, Plavix, she is on subcu heparin, metoprolol 12.5 mg twice daily, Protonix for GI prophylaxis. She is on Ativan per CIWA protocol, and thiamine replacements. Patient's weaning parameters and blood gas following spontaneous breathing trials were satisfactory, and spontaneous tidal volumes were 375, respiratory rate was 20, minute ventilation was 7.35 L/m, R SBI was 60, and this was -25, and we were unable to obtain vital. Blood gas was satisfactory with pO2 of 112, pCO2 44, and pH of 7.38 on pressure-support of 5 and CPAP of 5 and FiO2 of 50%. Patient looks comfortable, and she had a positive cuff week as well. She was extubated and tolerating extubation well. Midsternal incision is clean dry and intact, chest tube sites are clean dry and intact, left leg and the right leg Tad wrap. On 12/23/2021 patient seen in follow-up in intensive care unit, today is postoperative day #2, status post three-vessel coronary artery bypass grafting. She was successfully weaned and extubated yesterday on 12/22/2021, however in the evening she developed respiratory difficulty, hypoxia and required to go on BiPAP support with pressures of 12 and 5 and FiO2 of 100%, which was then weaned down to 50%. Her chest x-ray at 1720 last night showed bilateral chest tubes without evidence of pneumothorax, layering bilateral pleural effusions with associated subsegmental atelectasis, and coronary vascular congestion with cardiomegaly. Patient received one-time dose of IV Lasix she has produced 2.9 L in the urine output over the last 24 hours, however still remains in positive fluid balance of 769 mL over last 24 hours, her right and left pleural chest tubes have been by CT surgery last night, and right-sided pleural chest tube has put out 400 mL of bright red blood overnight, left pleural chest tube only put out 25 mL, and mediastinal chest tube 150 the last 24 hours. Patient received 3 units of packed red blood cells yesterday, his labs have been reviewed, hemoglobin is 8.2, white count is 11.1, platelet count is 75. Sodium is 138, potassium 3.8, chloride is 109, BUN is 13, creatinine 0.84. Hemodynamically patient is improved, her norepinephrine drip has been off since yesterday afternoon, milrinone drip has been discontinued this morning, she remains on Vicodin Ringer's at 50 ML per hour, and insulin at 2 units per hour, she is currently awake and alert, she is on 15 L per high flow nasal cannula, sitting up in a recliner, her incentive spirometer effort is suboptimal, patient is achieving about 500 to sometimes 700 mL on the incentive spirometer, lung sounds are diminished, poor inspiratory effort, there are scattered diffuse crackles throughout. Today's chest x-ray shows continued bilateral patchy opacities throughout both but improving aeration in the lower lungs, bilateral pleural chest tubes in place, no appreciable pneumothorax. PA pressure is 35/13, CVP is 7, cardiac output is 5.4, cardiac index 3.1. Patient states her pain is tolerable, she rates it 7 out of 10, and it is in the anterior sternum incisional area. Patient is tolerating sips of clear liquids. Diet has been ordered for her this morning. The patient is seen today 12/24/2021 in follow-up in the intensive care unit. Postoperative day #3 of the three-vessel coronary artery bypass surgery. She is currently sitting up in a chair at the bedside. Awake and alert in no acute distress. Maintaining O2 saturations in the 90s on 6 L high flow nasal cannula. Bilateral end mediastinal chest tubes remain in place. Chest x-ray reveals no evidence of pneumothorax. Persistent mild cardiomegaly with bilateral multifocal edema/infiltrate. No significant change compared to yesterday. She is pulling only about 500 ML's on her incentive spirometer at this morning. She did not utilize BiPAP last night. She remains on lactated Ringer's at 40 miles per hour. Insulin drip at 1 unit per hour. She is status post 3 units of packed red blood cells this admission. White count 10.6. Hemoglobin 8.1. Platelet count 81,000. Sodium 133. Potassium 4.2. BUN 12. Creatinine 0.69. Glucose 127. AST 56. ALT 13. CVP is 7. Cardiac output 4.8. Cardiac index 2.7. Blood pressure stable. Pacer wires in place. Remains in a -500 ML balance. Continued on DuoNeb inhalations. The patient is seen today 12/25/2021 in follow-up in the intensive care unit. This is postoperative day #4. She is currently resting comfortably in bed. Awake and alert in no acute distress. Chest tubes have been removed. She is maintaining O2 saturations in the 90s on 4 L/m per nasal cannula. Chest lactated Ringer's running at 30 MLS per hour. She is continuing to work with the incentive spirometer. Chest x-ray reveals some mild pulmonary edema. Stable cardiomegaly. No evidence of pneumothorax. She is status post 3 units of packed red blood cells this admission. Current hemoglobin 8.7. Platelets 118. White count 6.3. Sodium 134. Potassium 4.1. Bicarb 22. BUN 12. Creatinine 0.61. Glucose 18. AST 54, ALT 14. Initiated on Arixtra. The patient is seen today 12/26/2021 in follow-up in the intensive care unit. This is postoperative day #5. This morning the patient became quite restless and agitated. Trying to climb out of bed. She required Ativan and Haldol throughout the night. Suspecting alcohol and possible drug withdrawal. She was initiated on Precedex at 0.6 mg/kg per hour. Her oxygen requirements were gradually increasing up to 10 L high flow nasal cannula. Chest x-ray revealed moderate pulmonary vascular congestion and interstitial edema. She was given Lasix 40 mg IVP 1. She was diaphoretic. She was tachypneic with thoracoa bdominal dyssynchrony in her breathing pattern. Blood gases revealed a PaO2 of 66, pCO2 of 34 and a pH of 7.48. She is subsequently required intubation and mechanical ventilatory support at approximately 10 AM. She is currently on assist control mode with tidal volume of 400, respiratory rate of 24, FiO2 100% and a PEEP of 5. Follow-up arterial blood gases revealed a pO2 of 309, pCO2 32 and a PH of 7.52. FiO2 was decreased to 50% and rate was decreased to 20. Left internal jugular triple-lumen catheter and right femoral arterial lines were placed. She is currently on propofol at 20 mcg/kg/m. White count 6.5. Hemoglobin 7.5. Platelets 161. Sodium 133. Potassium 3.6. Chloride 103. BUN 11. Creatinine 0.63. Glucose 153. AST 41. ALT 14. She is currently in a -2 L balance. She remains hemodynamically stable. 12/27/2021, the patient is intubated on a mechanical ventilator. Events from yesterday was noted as the patient had to be reintubated and placed on a mechanical ventilator for multiple reasons was significant of which was her altered mentation and her ongoing signs of alcohol withdrawal and delirium. This morning, the patient is on propofol running at extremely 5 mcg/kg per minute and the patient is calm and comfortable. Precedex was discontinued yesterday. She is an assist-control mode of mechanical ventilation at the rate of 1220 with a tidal volume of 400 and FiO2 of 40% with a PEEP of 5. The chest x-ray from today is showing cardiomegaly. ET tube is in a good location for now. The patient has bilateral pleural effusions, stable compared to yesterday. The patient also has a left subclavian triple-lumen catheter in place. Sternal wires are also in place and there are obvious changes related to thoracotomy. The blood gases from today showed a pH of 7.48 with a pCO2 of 33 and pO2 of 87 and the peak airway pressure is around 19. Hemodynamically, the patient is on KVO IV fluids and the patient is on no pressors. She'll be started on enteral feeding for nutritional support. Cardiac rhythm is sinus. Rest of the blood work shows a white cell count of 9 with a hemoglobin of 7.5 and a platelet count of 247 and the electrolytes all within normal limits, blood sugar is at 107 and the patient's low potassium level which was at 3.2 is being replenished. LFTs are normal. Magnesium is also being replaced. This surgical wound sites of dry clean and intact. All of the chest tubes have been discontinued since surgery. 12/28/2021, the patient remains intubated on a mechanical ventilator. A sedation holiday will be given to her today. She remains on propofol running at 50 mcg/kg per minute. No Precedex is running at this point in time. While on the mechanical ventilator, she is quite synchronous and comfortable. She is an assist-control at the rate of 20 with a tidal volume of 375 with an FiO2 of 40% and PEEP of 5. The blood gas showed a pH of 7.5 with a pCO2 of 32 and pO2 of 60. Chest x-ray shows adequate expansion of both lungs. Chest tubes are removed. ET tube is in a good location. There is evidence of pulmonary vessel congestion and cardiomegaly and based on that the cardiothoracic team opted to give her a dose of Lasix. ET tube is in adequate location for now. No evidence of any pneumothorax. The patient has a left subclavian triple-lumen catheter in place. Otherwise, no seizure activity. A sedation holiday will be given to her today. She was started on Seroquel regarding her ongoing delirium and she received a dose of 100 mg overnight. On today's blood work, the white cell count of 14.1 with a hemoglobin of 7.6 and the rest of the electrodes are normal and the potassium is to be replaced at 3.3, BUN is at 14 with a creatinine of 0.7. Afebrile. She is on no antibiotics for now. Producing adequate amount of urine output. Fluid balance has been -1.4 L over the past 24 hours. The [facility] is receiving enteral feeding in the form of Vital HP @ rate of 30 12/29/2021, the patient remains sedated with propofol and the patient is currently on 45 mcg/kg per minute. She was given a sedation holiday. I was informed by the nursing staff that the patient was quite agitated. Although at times she was following commands. She was not adequate enough to be considered for extubation as the patient was significantly agitated and the patient was placed back on propofol. As mentioned, she was also started on Seroquel overnight at a dose of 100 mg. This morning, she is well sedated and she is comfortable. She is an assist-control mode at the rate of 20 tidal volume of 375 FiO2 of 40% with a PEEP of 5. Chest x-ray shows no interval changes along with cardiomegaly and some atelectatic changes in lung bases. There is copious amount of yellowish to greenish rest or secretions being suctioned out of the orotracheal tube. This is purulent. She does have a low-grade fever. She had a temperature 100.0 today. She is on no antibiotic coverage for now. Meanwhile, the blood work from today shows a white cell count of 12.7 with a hemoglobin of 7.3 and a pro-calcitonin level was sent out. The blood gas showed a pH of 7.51 with a pCO2 of 36 and pO2 of 68. BUN is at 21 with a creatinine of 0.6 and the sodium level is at 135. She is currently on vital high protein at the rate of 39 mL an hour. Fluid balance over the past 24 hours has been in the order of -426 mL. All of the chest tubes are out. Urine output is adequate. Sternum stable clean and intact. The patient has a triple-lumen catheter in the left subclavian. 12/30/2021, the patient is off propofol a Precedex at 0.3 mcg/kg per minute. She is in the process of being gradually weaned off the Precedex and her mentation will be evaluated. She was having issues with delirium, agitation and asynchrony with a mechanical ventilator. I started on Seroquel also and she is receiving Seroquel at a dose of 100 mg by mouth at bedtime. This has helped her quite a bit. Meanwhile, she remains on a mechanical ventilator. She is an assist-control mode at the rate of 20, tidal volume of 375 and FiO2 of 40% with a PEEP of 5. Blood gases from today shows a pH of 7.48 with a pCO2 of 34 and pO2 of 66. Chest x-ray still showing small bilateral pleural effusion more so on the left along with some hazy bilateral pulmonary infiltrates. This could be related to a ventilator associated pneumonia as the patient is also producing copious amount of respiratory secretions and she is having a low-grade fever and her cultures are still pending for now. Meanwhile, I started this patient on IV cefepime as of yesterday. Respiratory secretions are still copious at this point in time. Surgical wound site is dry clean and intact. The sternum is stable. No signs of any sternal wound infection. The pro-calcitonin level is at 0.4. The white cell count today is up at 15.1. At the same time, there is a drop in hemoglobin down to 6.7 without evidence of any bleeding. The patient remains on vital high protein at the rate of 40 mL an hour. She is on no pressors for now. She is maintaining his home pressure. Renal function is stable with a creatinine of 0.6. Potassium level is at 3.6. Calcium level is a t 8.0. LFTs are slightly abnormal with an AST of 74, ALT of 36 and alk phos of 52. She is in a normal sinus rhythm for now. Extent 2021, the patient remains off propofol and she is only on Precedex for sedation at 1 mcg/kg per minute. She is significant is a mechanical ventilator. Note that the patient was given a sedation holiday yesterday and this point is breathing trial. Nevertheless, we were not comfortable with extubation as the patient was quite borderline and she was having significant amount of secretions. Based on that, we aborted the reading trial. The same will be done today. She is an assist-control mode of mechanical ventilation, and she is at the rate of 20 with a tidal volume of of 10 75 mL with an FiO2 of 40% and PEEP of 5. Chest x-ray is unchanged and the patient is being diuresed. ET tube is in a good location. No evidence of any pneumothorax. Chest tubes have been removed. The patient's overall fluid balance has been negative as the patient is being diuresis with IV Lasix. She is having copious amount of rest or secretions. I modified antibiotics and I added vancomycin in combination with cefepime. The sputum cultures are still pending for now. In terms of fever, the patient is having one temperature spike yesterday with a T-max of 101.8. Th is morning she is afebrile. She is on no pressors for now. She is receiving enteral feeding for nutritional support and she is on vital high protein at the rate of 40 mL an hour. Note that into regards to her agitation, we modified her static with those and the patient is currently on Seroquel 100 mg by mouth twice a day. The hemoglobin today is at 6.6. Cardiothoracic surgery opted not to tra nsfuse this patient. The white cell count at 13.4. Review is a 24 with a creatinine of 0.7 with a sodium level of 139. No other the hemoglobin from yesterday was at 6.7 and ultimately the patient is going to need a transfusion 01/01/2022, the patient's is being seen in follow-up in the intensive care unit. Events from yesterday was noted. Note that the patient was given a sedation holiday and following that she was able to pass this point is breathing trial. I extubated the patient to a BiPAP and after probably 2 hours, the patient became more tachypneic and short of breath and agitated. Accordingly, she had to be reintubated based of worsening hemodynamics and hypoxemia also. This morning, she is back on mechanical ventilator. She is sedated with a propofol at 50 mcg/kg per minute. She is an assist-control mode of mechanical ventilation at the rate of 20 with a tidal volume of 375 and FiO2 is currently at 60% with a PEEP of 5. Peak airway pressures around 20. Respiratory secretions have improved over the past 24 hours. As for the chest x-ray, the patient has atelectasis and bilateral pleural effusions right more than left along with some increased pulmonary vascular markings bilaterally. The patient has a left subclavian triple-lumen catheter and the ET tube was around 2 cm above the henrry. In comparison with yesterday's chest x-ray, findings as essentially stable. Note that we culture the patient sputum on multiple locations. There is cultures are still negative for any microbial growth. The patient had copious purulent respiratory secretions and the patient was covered with a combination of IV cefepime and vancomycin. At this point in time, the [facility] is running a temperature of 11.1 from midnight and subsequently the temperature dropped down to 99. The patient's white cell count is at 14.1. The pro-calcitonin level was 0.4. The blood gases from today showed a pH of 7.42 with a pCO2 of 36 and pO2 of 91. The creatinine is at 0.8 with a sodium level of 141. Hemoglobin remains low at X.7. The patient is receiving enteral feeding for nutritional support. This was restarted yesterday and the patient is currently on vitamin Ht at the rate of 50 mL an hour. She is resting comfortably in bed. She is arousable once off sedation. She was given another dose of Lasix today 40 mg IV push by cardiothoracic surgery team. 01/02/2022, the patient is being seen for a follow-up. The patient is currently on propofol running at 30 mics for respiratory and per minute. Despite that, she is arousable and she is awake. She remains on assist control mode of mechanical ventilation at the rate of 20 with a tidal volume of 375 and FiO2 of 40% with a PEEP of 5. Note that the patient has failed extubation twice and the second failure was essentially respiratory whereas the first failure was probably more neurologic. Repeat chest x-ray showing cardiomegaly and there is a left-sided pleural effusion and ultrasound the chest was done that confirmed the presence of a adequate left-sided pleural effusion. Based on that, our plan is to drain the left-sided fluid prior to giving this patient any further weaning trials. She is hemodynamically stable on no pressors. The cardiac rhythm is sinus. Surgical wound site is dry clean and intact. Blood work from today shows a hemoglobin of 6.5 and cardiothoracic surgery team has refused to transfer this patient. Hemoglobin is at 6.5 which is slightly lower compared to yesterday she the white cell count is at 7.8 with a platelet count of 419. The blood gases from today shows a pH of 7.48 with a pCO2 of 34 and pO2 of 100. BUN is at 27 with a creatinine of 0.6 and sodium is at 144. The patient is receiving daily Lasix dose and the patient's fluid balance is been -812 mL over the past 24 hours. Tolerating enteral feeding for nutritional support. No other significant events overnight for now. Objective - Vital Signs Vital signs: Vital Signs Temp 98.5 F 01/02/22 08:00 Pulse 95 01/02/22 08:43 Resp 50 H 01/02/22 09:00 BP 137/69 01/02/22 09:00 Pulse Ox 100 01/02/22 08:00 FiO2 40 01/02/22 08:15 Intake & Output 01/01/22 01/02/22 01/02/22 18:59 06:59 18:59 Intake Total 0889.791 2304.472 385.867 Output Total 1445 1000 150 Balance 151.120 809.472 235.867 Weight 72.8 kg Intake: IV 755 763 52 0.9 @ 20 260 260 40 Cefepime 2 gm In Sodium 200 175 Chloride 0.9% 100 ml @ 25 mls/hr IVPB Q8H YADY Rx#: [id number] Pressure Bag 45 78 12 Vancomycin 1,250 mg In 250 250 Sodium Chloride 0.9% 250 ml @ 125 mls/hr IVPB Q12HR YADY Rx#:[id number] Intake, IV Titration 171.120 253.472 283.867 Amount Vancomycin 1,250 mg In 250 Sodium Chloride 0.9% 250 ml @ 125 mls/hr IVPB Q12HR [facility]ADY Rx#:[id number] propofoL 1,000 mg In 171.120 253.472 33.867 Empty Bag 1 bag @ 5 MCG/ KG/MIN 2.139 mls/hr IV . Q24H YADY Rx#:[id number] Tube Feeding 550 650 50 Other 120 143 Output: Urine 1445 1000 150 Other: Voiding Method Indwelling Catheter Indwelling Catheter Indwelling Catheter # Bowel Movements 1 ABP, PAP, CO, CI - Last Documented Arterial Blood Pressure 141/98 Pulmonary Artery Pressure 34/8 Cardiac Output 4.8 Cardiac Index 2.7 - Exam GENERAL EXAM: Intubated, sedated 66-year-old female patient, comfortable in no apparent distress. Sedated with propofol and the patient is calm and comfortable. 6 is a mechanical ventilator. Orogastric and orotracheal tube are both in place. HEAD: Normocephalic/atraumatic. EYES: Normal reaction of pupils, equal size. Conjunctiva pink, sclera white. NOSE: Clear with pink turbinates. THROAT: No erythema or exudates. NECK: No masses, no JVD, no thyroid enlargement, no adenopathy. Left internal jugular triple-lumen catheter in place. CHEST: Heart hugger in place Symmetrical expansion. Midsternal incision is clean dry and intact, chest tubes removed and the patient has diminished breath on the left lung base along with some dullness to percussion. LUNGS: Equal air entry with no crackles, wheeze, rhonchi or dullness. CVS: Regular rate and rhythm, normal S1 and S2, no gallops, no murmurs, no rubs ABDOMEN: Soft, nontender. No hepatosplenomegaly, normal bowel sounds, no guar ding or rigidity. EXTREMITIES: Right femoral arterial line in place. No clubbing, no edema, no cyanosis, 2+ pulses and upper and lower extremities. MUSCULOSKELETAL: Muscle strength and tone normal. SPINE: No scoliosis or deformity SKIN: No rashes, left leg interrupted incision covered with Tad wrap - Labs CBC & Chem 7: 01/02/22 05:40 01/02/22 05:40 Labs: Abnormal Lab Results - Last 24 Hours (Table) 01/01/22 01/01/22 01/01/22 Range/Units 11:41 17:49 23:33 WBC (3.8-10.6) k/uL RBC (3.80-5.40) m/uL Hgb (11.4-16.0) gm/dL Hct (34.0-46.0) % MCHC (31.0-37.0) g/dL RDW (11.5-15.5) % Neutrophils # (Manual) (1.3-7.7) k/uL Monocytes # (Manual) (0-1.0) k/uL Nucleated RBCs (0-0) /100 WBC ABG pH (7.35-7.45) ABG pCO2 (35-45) mmHg ABG Total CO2 (19-24) mmol/L ABG O2 Saturation (94-97) % Chloride (98-107) mmol/L BUN (7-17) mg/dL Glucose (74-99) mg/dL POC Glucose (mg/dL) 160 H 133 H 131 H (75-99) mg/dL AST (14-36) U/L ALT (4-34) U/L Total Protein (6.3-8.2) g/dL Albumin (3.5-5.0) g/dL 01/02/22 01/02/22 01/02/22 Range/Units 05:28 05:40 05:40 WBC 11.8 H (3.8-10.6) k/uL RBC 2.44 L (3.80-5.40) m/uL Hgb 6.5 L* (11.4-16.0) gm/dL Hct 21.2 L (34.0-46.0) % MCHC 30.7 L (31.0-37.0) g/dL RDW 17.6 H (11.5-15.5) % Neutrophils # (Manual) 9.09 H (1.3-7.7) k/uL Monocytes # (Manual) 1.18 H (0-1.0) k/uL Nucleated RBCs 1 H (0-0) /100 WBC ABG pH 7.48 H (7.35-7.45) ABG pCO2 34 L (35-45) mmHg ABG Total CO2 26 H (19-24) mmol/L ABG O2 Saturation 98.4 H (94-97) % Chloride 115 H (98-107) mmol/L BUN 27 H (7-17) mg/dL Glucose 138 H (74-99) mg/dL POC Glucose (mg/dL) (75-99) mg/dL AST 138 H (14-36) U/L ALT 100 H (4-34) U/L Total Protein 5.7 L (6.3-8.2) g/dL Albumin 2.6 L (3.5-5.0) g/dL 01/02/22 Range/Units 06:04 WBC (3.8-10.6) k/uL RBC (3.80-5.40) m/uL Hgb (11.4-16.0) gm/dL Hct (34.0-46.0) % MCHC (31.0-37.0) g/dL RDW (11.5-15.5) % Neutrophils # (Manual) (1.3-7.7) k/uL Monocytes # (Manual) (0-1.0) k/uL Nucleated RBCs (0-0) /100 WBC ABG pH (7.35-7.45) ABG pCO2 (35-45) mmHg ABG Total CO2 (19-24) mmol/L ABG O2 Saturation (94-97) % Chloride (98-107) mmol/L BUN (7-17) mg/dL Glucose (74-99) mg/dL POC Glucose (mg/dL) 135 H (75-99) mg/dL AST (14-36) U/L ALT (4-34) U/L Total Protein (6.3-8.2) g/dL Albumin (3.5-5.0) g/dL Microbiology - Last 24 Hours (Table) 12/29/21 21:00 Gram Stain - Preliminary Sputum Sputum Culture - Preliminary Streptococcus pneumoniae Diphtheroid species Assessment and Plan Plan: 1 Symptomatic multivessel coronary artery disease, status post three-vessel coronary artery bypass grafting with DE [place] CRUZ to LAD, SVG to the OM, SVG to the PDA, left atrial appendage exclusion with 35 mm Atriclip on 12/21/2021 2 Routine postoperative ventilator management, patient was successfully weaned and extubated on 12/22/2021. However, on 12/26/2021 the patient developed suspected acute alcohol/drug withdrawal and thoracoabdominal dyssynchrony breathing pattern requiring reintubation and placed back on mechanical v entilator. The patient given another extubation trial on 12/31/2021 and the patient yet again failed within few hours. The patient currently is on sedation. The patient has a left-sided pleural effusion was probably is contributing to her respiratory failure. We'll proceed with a left-sided th oracentesis. 3 Acute blood loss anemia, an expected outcome of sternotomy, and bypass surgery, requiring transfusion with blood products, patient has received 3 units of packed red blood cells, current hemoglobin 6. 5 4 History of substance abuse including cocaine, EtOH, and marijuana. Urine dr angelina screen on the day of surgery on 12/21/2021 is positive for cocaine and benzodiazepines, currently on precedex 5 History of single kidney, with history of nephrectomy 6 Chronic and ongoing tobacco dependence 7 History of CVA 8 Hypertension 9 Hyperlipidemia 10 History of COPD 11 Depression 12 History of hepatitis C Plan: Continue ventilator support, no changes We'll proceed with a left-sided thoracentesis Respiratory secretions are less and the sputum cultures positive for strep pneumoniae and the patient remains on a combination of cefepime and vancomycin and modification antibiotic will be done. Discontinue the vancomycin acute distress. I now Lasix, Sputum cultures still pending for now, cultures of been negative thus far Procal is currently at 0.4 IV Lasix 40 mg x1 and will monitor the fluid balance. IV fluids are currently at KVO Continue Seroquel 100 mg and change the frequency to twice a day enteral feeding for nutritional support Hemodynamically stable I am considering a third trial and extubation probably within next 24-48 hours. If she fails, she will need a tracheostomy tube for slow progressive. We'll discuss this with the cardiothoracic team. We'll continue to follow. a give the patient one more chance of extubation post thoracentesis and if she fails she will be requiring a tracheostomy tube insertion and later stage. We'll continue to follow. Critical care evaluation that was done and more than 30 minutes. yesterday she is a sedation
--- NOTE | 2022-01-02 10:38 | P.PCN ---
Date of Procedure: 01/02/22 Preoperative Diagnosis: Left pleural effusion Postoperative Diagnosis: Left pleural effusion Procedure(s) Performed: Thoracentesis Anesthesia: local Surgeon: Clemente Padilla Estimated Blood Loss (ml): 0 Condition: critical Disposition: ICU Operative Findings: A time out was performed and the chest x-ray was reviewed, the appropriate side was confirmed and marked. My hands were washed immediately prior to the procedure. I wore a surgical cap, mask with protective eyewear, sterile gown and sterile gloves throughout the procedure. The patient was prepped and draped in a sterile manner using chlorhexidine scrub after the appropriate level was percussed and confirmed by ultrasound. 1% lidocaine was used to anesthesize the skin, subcutaneous tissue, superior aspect of the rib periosteum and parietal pleura. A finder needle was then introduced over the superior aspect of the rib to locate the pleural fluid; 2colored fluid was aspirated at a depth of approximately 2 cm. A 10-blade scalpel was used to rajan the skin at the insertion site. The [id number] needle was then introduced through the skin incision into the pleural space using negative aspiration pressure and the red colometric indicator to confirm appropriate positioning of the needle. The thoracentesis catheter was then threaded without difficulty. 250ml of turbid blood-tinged colored fluid was removed without difficulty. The catheter was then removed. No immediate complications were noted during the procedure. A post-procedure chest x-ray is pending at the time of this note. The fluid will not be sent for studies. Estimated blood loss is 0cc
[2022-01-02] MEDS: fentaNYL (PF). 1,000 MCG in SODIUM CHLORIDE 0.9% 80 ML IV SCH ×2 (11:05→23:12)
--- NOTE | 2022-01-02 11:14 | XR ---
EXAMINATION TYPE: XR chest 1V portable DATE OF EXAM: 01/02/2022 COMPARISON: 01/02/2022 HISTORY: Postthoracentesis TECHNIQUE: Single frontal view of the chest is obtained. FINDINGS: Post thoracentesis, there is no pneumothorax. There is an ET tube 3.8 cm above the henrry. There is a left-sided central venous catheter the tip of which is in the left brachiocephalic vein There is small amount of fluid within the minor fissure on the right. There is resolution of the left retrocardiac opacity. IMPRESSION: 1. ET tube 2.8 cm above the henrry. 2. No pneumothorax following thoracentesis. 3. Resolution of the left pleural effusion.
[2022-01-02] MEDS: amLODIPine 10 MG TAB PO SCH (11:15)
[2022-01-02 11:33] LABS: Glucose,Whole Blood 113 mg/dL (75-99)
[2022-01-02 12:33] LABS: ABG HCO3 26 mmol/L (21-25); ABG Oxygen Saturation 97.3 % (94-97); ABG PCO2 38 mmHg (35-45); ABG PH 7.44 (7.35-7.45); ABG PO2 85 mmHg (83-108); ABG TCO2 27 mmol/L (19-24)
[2022-01-02 12:36] LABS: Allen Test Performed? no
[2022-01-02] MEDS ORDERED: methylPREDNISolone SOD SUCCI 125 MG/2 ML VIAL IV STA (13:10)
[2022-01-02] MEDS ORDERED: RACEPINEPHRINE 2.25% NEB 0.5 ML NEBU INHALATION ONE (13:23)
[2022-01-02] MEDS: RACEPINEPHRINE 2.25% NEB 0.5 ML NEBU INHALATION STA ×2 (13:24→14:01)
[2022-01-02] MEDS ORDERED: DEXMEDETOMIDINE/0.9% NACL(PMX) 400 MCG in EMPTY BAG 1 BAG IV SCH (13:49)
[2022-01-02] MEDS ORDERED: propofoL 100 ML IV ONE (14:10)
[2022-01-02] MEDS ORDERED: CISATRACURIUM 2 MG/ML 5 ML VIAL IV ONE (14:15)
--- NOTE | 2022-01-02 14:28 | P.PCN ---
Date of Procedure: 01/02/22 Preoperative Diagnosis: acute stridor, post extubation Postoperative Diagnosis: acute stridor, post extubation Procedure(s) Performed: Glidoscope guided intubation Anesthesia: [id number] Surgeon: Clemente Padilla Estimated Blood Loss (ml): 0 Condition: critical Disposition: ICU Operative Findings: Indication: Respiratory compromise. stridor A time-out was completed verifying correct patient, procedure, site, positioning, and implant(s) or special equipment if applicable. The patient was positioned appropriately and a #8 endotracheal tube was placed under direct laryngoscopy. The tube was anchored at 22 cm at the teeth. Correct placement was confirmed by presence of bilateral breath sounds without air sounds in the abdomen on auscultation. An end-tidal CO2 monitor was also used to confirm tracheal placement of the ET tube. A chest x-ray was ordered to assess for pneumothorax and verify endotracheal tube placement. The patient tolerated the procedure well and there were no complications.
--- NOTE | 2022-01-02 15:11 | XR ---
EXAMINATION TYPE: XR chest 1V DATE OF EXAM: 01/02/2022 COMPARISON: Today HISTORY: Respiratory failure TECHNIQUE: Single view FINDINGS: Endotracheal tube is 2.5 cm from the henrry. There is pulmonary vascular congestion and lola nting the costophrenic angles. There are sternal wires. There is left-sided central venous catheter w ith tip over the right atrium. There is some patchy atelectasis at the lung bases. There is nasogastr ic tube in the stomach. IMPRESSION: Congestive heart failure with pleural effusions without change.
[2022-01-02 15:36] LABS: ABG Base Excess -1.5 mmol/L; ABG HCO3 24 mmol/L (21-25); ABG PCO2 43 mmHg (35-45); ABG PH 7.36 (7.35-7.45); ABG PO2 136 mmHg (83-108); ABG TCO2 25 mmol/L (19-24)
[2022-01-02 15:38] LABS: Allen Test Performed? no
[2022-01-02 17:43] LABS: Glucose,Whole Blood 170 mg/dL (75-99)
[2022-01-02] MEDS: SENNOSIDES-DOCUSATE SODIUM 1 EACH TAB PO SCH (20:55)
[2022-01-03 00:13] LABS: Glucose,Whole Blood 185 mg/dL (75-99)
[2022-01-03] MEDS: INSULIN ASPART (NovoLOG) 100 UNIT/ML VIAL SQ SCH ×5 (00:13→23:52)
[2022-01-03] MEDS: HEPARIN SODIUM,PORCINE/PF 5,000 UNIT/0.5 ML SYRINGE SQ SCH ×4 (00:14→23:52)
[2022-01-03] MEDS: CEFEPIME 2 GM in SODIUM CHLORIDE 0.9% 100 ML IVPB SCH ×3 (01:31→15:26)
[2022-01-03 04:46] LABS: ABG Base Excess 0.3 mmol/L; ABG HCO3 25 mmol/L (21-25); ABG Oxygen Saturation 99.3 % (94-97); ABG PCO2 43 mmHg (35-45); ABG PH 7.38 (7.35-7.45); ABG PO2 150 mmHg (83-108); ABG TCO2 27 mmol/L (19-24)
[2022-01-03 04:54] LABS: Allen Test Performed? no
[2022-01-03 05:05] LABS: Anisocytosis Slight; Hypochromasia Marked; MCH 26.4 pg (25.0-35.0); MCHC 29.7 g/dL (31.0-37.0); MCV 88.9 fL (80.0-100.0); Mean Platelet Volume 9.2; Platelet Count 617 k/uL (150-450); Poikilocytosis Slight; RBC 2.48 m/uL (3.80-5.40); RDW 17.5 % (11.5-15.5); WBC 12.9 k/uL (3.8-10.6)
[2022-01-03 05:21] LABS: HGB 6.6 gm/dL (11.4-16.0)
[2022-01-03 05:49] LABS: ALT 85 U/L (4-34); AST 87 U/L (14-36); African American GFR (CKD) >90 (>60 ml/min/1.73 sqM); Albumin 2.8 g/dL (3.5-5.0); Alkaline Phosphatase 60 U/L (38-126); Anion Gap 3 mmol/L; Blood Urea Nitrogen 26 mg/dL (7-17); Calcium 8.9 mg/dL (8.4-10.2); Carbon Dioxide 26 mmol/L (22-30); Chloride 115 mmol/L (98-107); Glucose 203 mg/dL (74-99); Magnesium 2.2 mg/dL (1.6-2.3); Non-African American GFR(CKD) >90 (>60 ml/min/1.73 sqM); Potassium 4.1 mmol/L (3.5-5.1); Sodium 144 mmol/L (137-145); Total Bilirubin 0.7 mg/dL (0.2-1.3)
[2022-01-03 05:50] LABS: Glucose,Whole Blood 212 mg/dL (75-99)
[2022-01-03] MEDS: THIAMINE 100 MG TAB PO SCH ×2 (07:14→18:07)
--- NOTE | 2022-01-03 08:16 | XR ---
EXAMINATION TYPE: XR chest 1V portable DATE OF EXAM: 01/03/2022 COMPARISON: X-ray dated 01/02/2022 HISTORY: Post cardiac surgery TECHNIQUE: Single frontal view of the chest is obtained. FINDINGS: The tip of the endotracheal tube is about 1.5 cm proximal to the henrry. Withdrawal for about 1.5 cm is advised. NG tube with the tip is inferior to the diaphragm. Left-sided subclavian line with the ti p is in the right atrium. Unchanged cardiomediastinal silhouette, cardiac prosthesis, sternotomy wire sutures and aortic athero sclerotic calcifications. Suspected small pleural effusions. Left lower lung zone pulmonary atelectas is. IMPRESSION: As above.
[2022-01-03] MEDS: IPRATROPIUM-ALBUTEROL 3 ML NEB INHALATION SCH ×4 (08:19→20:41)
[2022-01-03] MEDS: PANTOPRAZOLE 40 MG/10 ML VIAL IVP SCH (09:00)
[2022-01-03] MEDS: FUROSEMIDE 10 MG/ML 4 ML VIAL IV SCH ×2 (09:00→15:32)
[2022-01-03] MEDS: POTASSIUM CHLORIDE ER 20 MEQ TAB.ER PO SCH ×2 (09:01→15:32)
[2022-01-03] MEDS: MULTIVITAMINS, THERA 1 EACH TAB PO SCH (09:01)
[2022-01-03] MEDS: QUEtiapine 100 MG TAB PO SCH ×2 (09:01→20:11)
[2022-01-03] MEDS: ASPIRIN 81 MG PO SCH (09:01)
[2022-01-03] MEDS: FLUoxetine HCL 20 MG CAP PO SCH (09:02)
[2022-01-03] MEDS: ATORVASTATIN 40 MG TAB PO SCH (09:02)
[2022-01-03] MEDS: CLOPIDOGREL 75 MG TAB PO SCH (09:02)
[2022-01-03] MEDS: METOPROLOL TARTRATE 50 MG TAB PO SCH ×2 (09:02→20:11)
[2022-01-03] MEDS: VANCOMYCIN 1,250 MG in SODIUM CHLORIDE 0.9% 250 ML IVPB SCH (09:03)
[2022-01-03] MEDS: CHLORHEXIDINE GLUCONATE 15 ML CUP MUCOUS MEM SCH ×2 (09:03→20:11)
[2022-01-03 11:26] LABS: Glucose,Whole Blood 148 mg/dL (75-99)
[2022-01-03] MEDS: amLODIPine 10 MG TAB PO SCH (11:45)
[2022-01-03] MEDS: methylPREDNISolone SOD SUCCI 125 MG/2 ML VIAL IV SCH ×3 (12:07→23:53)
--- NOTE | 2022-01-03 12:25 | P.PN ---
Subjective Progress Note Date: 01/03/22 Principal diagnosis: Coronary artery disease This is a 66-year-old -O[place] female patient of Dr. Allan with past medical history of hypertension, hyperlipidemia, CVA, single kidney with right nephrectomy, history of hepatitis C, COPD, current tobacco dependence, depres steve, daily EtOH use, occasional marijuana and cocaine use. Patient had recently been complaining of chest pain and shortness of breath for 2 months, she was seen by cardiology, she follows with Dr. Hutchison, she underwent stress testing which was abnormal and subsequently she had a heart catheterization that demonstrated 85% left main disease, totally occluded RCA with collateral from the left side, proximal LAD stenosis of 95%, mid LAD stenosis of a 50% with distal LAD stenosis of 70%, and circumflex with mild disease of 30-40%. Due to these findings patient was referred to cardiothoracic surgery for surgical revascularization. Transthoracic echocardiogram from 12/09/2021 showed preserv ed LV function with ejection fraction of 55-60%, mildly increased septal wall thickness and posterior wall thickness. There was mild mitral regurg, aortic valve was structurally normal without significant sclerosis or stenosis or aortic regurgitation, pulmonary artery systolic pressure was normal, there was trace tricuspid regurg. Bedside PFT showed FEV1 of 1.68 L or 73% of predicted, FVC of 2.04, or 68% of predicted, and FEV1 to FEC ratio of 107%, MCV of 63, and this was consistent with mild restrictive pulmonary physiology. Today on 12/21/2021 patient presented to the hospital, and underwent three-vessel coronary artery bypass surgery with DE LA CRUZ to the LAD, SVG to the OM, SVG to the PDA,, left atrial appendage exclusion with 35 mm Atriclip, intraoperative CHAD, and appendectomy aortic scanning. Patient has known history of substance abuse, and her urine drug screen the day of surgery on 12/21/2021 was positive for benzodiazepines and cocaine. We seen the patient in the postoperative period in the ICU, patient is still sedated and intubated, on assist-control mode with a rate of 12, tidal lamberts 400, FiO2 of 100% and PEEP of 5, postoperative blood gas shows pO2 156, pCO2 51, and pH of 7.30 and this was done on the above- mentioned ventilator settings and FiO2 had since been dropped down to 80%. Chest x-ray showing ET tube 2 cm above the henrry, right internal jugular Nottingham- Pamela in place, bilateral pleural and mediastinal chest tubes in place. No pneumothorax. Patient is in sinus mechanism with a rate of 71, blood pressure is 148/63, PA pressures 33/16, CVP 7-8, cardiac output is 3.6, and cardiac index is 2.0. With SVR of 1400. Currently patient is on lactated Ringer's at 50 ML per hour, insulin is at 0.5 units per hour, nitroglycerin is up 5 mics per kilo per minute, and milrinone is at 0.3 mics per kilo per minute. Right and left pleural chest tubes connected together, and mediastinal chest tube with minimal sanguinous output. No air leak noted. Young catheter is in place, patient is producing 50-65 ML per hour. On 12/22/2021 patient seen in follow-up in intensive care unit, she is waking up, she remains intubated on mechanical ventilator, on assist-control with a rate of 12, tidal volume was 400, FiO2 of 60% and PEEP of 5. This point his blood gas showed pO2 of 68, pCO2 of 43, and pH of 7.39, and this was done on those above-mentioned ventilator settings, patient has since been placed on pressure support of 5 and CPAP of 5 with FiO2 of 50%. She is doing good, she is opening eyes to voice, follows simple commands, appears to be in no acute distress, hemodynamically she is been stable, she is in sinus mechanism with a rate of 90 BPM, she remains on small amount of milrinone at 0.1 cameron per kilo per minute, she is on lactated Ringer's at 50 ML per hour, norepinephrine at 0.08 units per kilo per minute, Cleviprex and nitroglycerin infusions have been discontinued. Today's chest x-ray has been reviewed showing scattered bibasilar infiltrates likely related to atelectasis. PA pressure is 36/17, CVP is 9, cardiac output is 4.8, and cardiac index is 2.7. This morning's labs have been reviewed showing globin of 5.9, white blood cell count of 6.4, platelet count of 99, sodium is 138, potassium is 4.2, chloride is 108, BUN is 15, creatinine is 1.05. Patient was transfused with 1 unit of packed red blood cells, repeat labs from this morning show hemoglobin if 6.6, and patient will receive another unit of packed red blood cells. Patient has a mediastinal chest tube in place and 1 left pleural and one right pleural white connected together, and pleural chest tubes put out 650 mL of serosanguineous output in the last 24 hours, and there is been 300 mL of serous and was output from the mediastinal chest tube. Remains on cefazolin for prophylactic antibiotic coverage. Patient has been started on aspirin, Lipitor, Plavix, she is on subcu heparin, metoprolol 12.5 mg twice daily, Protonix for GI prophylaxis. She is on Ativan per CIWA protocol, and thiamine replacements. Patient's weaning parameters and blood gas following spontaneous breathing trials were satisfactory, and spontaneous tidal volumes were 375, respiratory rate was 20, minute ventilation was 7.35 L/m, R SBI was 60, and this was -25, and we were unable to obtain vital. Blood gas was satisfactory with pO2 of 112, pCO2 44, and pH of 7.38 on pressure-support of 5 and CPAP of 5 and FiO2 of 50%. Patient looks comfortable, and she had a positive cuff week as well. She was extubated and tolerating extubation well. Midsternal incision is clean dry and intact, chest tube sites are clean dry and intact, left leg and the right leg Tad wrap. On 12/23/2021 patient seen in follow-up in intensive care unit, today is postoperative day #2, status post three-vessel coronary artery bypass grafting. She was successfully weaned and extubated yesterday on 12/22/2021, however in the evening she developed respiratory difficulty, hypoxia and required to go on BiPAP support with pressures of 12 and 5 and FiO2 of 100%, which was then weaned down to 50%. Her chest x-ray at 1720 last night showed bilateral chest tubes without evidence of pneumothorax, layering bilateral pleural effusions with associated subsegmental atelectasis, and coronary vascular congestion with cardiomegaly. Patient received one-time dose of IV Lasix she has produced 2.9 L in the urine output over the last 24 hours, however still remains in positive fluid balance of 769 mL over last 24 hours, her right and left pleural chest tubes have been by CT surgery last night, and right-sided pleural chest tube has put out 400 mL of bright red blood overnight, left pleural chest tube only put out 25 mL, and mediastinal chest tube 150 the last 24 hours. Patient received 3 units of packed red blood cells yesterday, his labs have been reviewed, hemoglobin is 8.2, white count is 11.1, platelet count is 75. Sodium is 138, potassium 3.8, chloride is 109, BUN is 13, creatinine 0.84. Hemodynamically patient is improved, her norepinephrine drip has been off since yesterday afternoon, milrinone drip has been discontinued this morning, she remains on Vicodin Ringer's at 50 ML per hour, and insulin at 2 units per hour, she is currently awake and alert, she is on 15 L per high flow nasal cannula, sitting up in a recliner, her incentive spirometer effort is suboptimal, patient is achieving about 500 to sometimes 700 mL on the incentive spirometer, lung sounds are diminished, poor inspiratory effort, there are scattered diffuse crackles throughout. Today's chest x-ray shows continued bilateral patchy opacities throughout both but improving aeration in the lower lungs, bilateral pleural chest tubes in place, no appreciable pneumothorax. PA pressure is 35/13, CVP is 7, cardiac output is 5.4, cardiac index 3.1. Patient states her pain is tolerable, she rates it 7 out of 10, and it is in the anterior sternum incisional area. Patient is tolerating sips of clear liquids. Diet has been ordered for her this morning. On 01/03/2022 patient seen in follow-up in intensive care unit, yesterday patient was again weaned and extubated from the mechanical ventilator however she again quickly field, partially because of Stridor, her pulmonary secretions were reportedly improved at the time. Patient was reintubated and placed on mechanical ventilator, this morning she is on assist-control mode of ventilation with a rate of 20, tidal vital 375, FiO2 40% and PEEP of 5, this morning's blood gas shows pO2 of 150, pCO2 43, pH of 7.38. Chest x-ray showing bilateral small pleural effusions, and left lower lung pulmonary atelectasis. Per respiratory therapy patient continues to have quite significant amount of secretions from the ET tube, although the amount and color seem to have improved some. Patient is currently sedated on Diprivan at 35 mics per kilo per minute, and she is waking up and following simple commands, she is on fentanyl infusion at 0.5 mics per kilo per minute, and 0.9 normal saline at a rate of 20 ML per hour, she is tolerating tube feedings with vital HP at a rate of 50 with a goal of 50. She is in sinus mechanism at a rate of 98 BPM. Her Nottingham-Pamela catheter has been discontinued. Mediastinal and right and left pleural chest tubes have been discontinued a few days ago. Patient continues on cefepime, and vancomycin. Sputum culture was positive for Streptococcus pneumonia and Corynebacterium stratum, and patient has been on cefepime and vancomycin. Patient has been receiving Lasix on a daily basis, and she was started on maintenance dose of IV Lasix 40 mg every 8 hours, and IV steroids with Solu-Medrol 60 mg every 6 hours. Patient underwent left-sided thoracentesis yesterday would removal of 250 mL of turbid blood-tinged fluid. The rest of today's lab 7 reviewed, showing white blood cell count of 12.9, hemoglobin is 6.6, platelet count of 617. Chloride was 1:15, the rest of the electrolytes were unremarkable, BUN is 26 and creatinine 0.64. Patient is waking up and following simple commands, she has however become aggressive, she is trying to talk to us. She is still producing moderate amount of yellow colored phlegm which is stacker driver in color. She's been afebrile overnight, hold for surgical incisions are clean dry and intact, abdomen is soft, she is tolerating tube feedings. Objective - Vital Signs Vital signs: Vital Signs Temp 98.5 F 01/03/22 08:00 Pulse 90 01/03/22 11:52 Resp 20 01/03/22 11:55 BP 113/64 01/03/22 08:00 Pulse Ox 97 01/03/22 09:00 FiO2 60 01/03/22 11:55 Intake & Output 01/02/22 01/03/22 01/03/22 18:59 06:59 18:59 Intake Total 0958.493 8020.790 661.942 Output Total 1935 565 450 Balance -853.104 994.790 211.942 Weight 75 kg 75 kg Intake: IV 286 264 80 0.9 @ 20 220 240 80 Pressure Bag 66 24 Intake, IV Titration 595.896 605.790 381.942 Amount Cefepime 2 gm In Sodium 200 100 100 Chloride 0.9% 100 ml @ 25 mls/hr IVPB Q8H [facility] Rx#: [id number] Vancomycin 1,250 mg In 250 250 250 Sodium Chloride 0.9% 250 ml @ 125 mls/hr IVPB Q12HR [facility] Rx#:[id number] fentaNYL (PF). 1,000 mcg 68.25 19.535 In Sodium Chloride 0.9% 80 ml @ 0.5 MCG/KG/HR 3. 64 mls/hr IV .Q24H [facility] Rx #:[id number] propofoL 1,000 mg In 77.646 236.255 31.942 Empty Bag 1 bag @ 5 MCG/ KG/MIN 2.139 mls/hr IV . Q24H [facility] Rx#:[id number] Tube Feeding 200 600 200 Other 90 Output: Urine 1685 565 450 Other 250 Other: Voiding Method Indwelling Catheter Indwelling Catheter Indwelling Catheter ABP, PAP, CO, CI - Last Documented Arterial Blood Pressure 109/46 Pulmonary Artery Pressure 34/8 Cardiac Output 4.8 Cardiac Index 2.7 - Exam GENERAL EXAM: Aweake, but arousable to voice, and following simple commands intubated, 66-year-old -[place] female patient intubated, and on 35 mics of Diprivan and per kilo per minute, awake and alert, slightly anxious, but following simple commands and moving all 4 extremities. HEAD: Normocephalic/atraumatic. EYES: Normal reaction of pupils, equal size. Conjunctiva pink, sclera white. NOSE: Clear with pink turbinates. THROAT: No erythema or exudates. NECK: No masses, no JVD, no thyroid enlargement, no adenopathy. CHEST: No chest wall deformity. Symmetrical expansion. Midsternal incision is clean dry and intact, right and left pleural chest tubes in place, and there is 400 mL of bright sanguinous output from the right chest tube, and dark serosanguineous output from the left chest tube, mediastinal and right and left pleural chest tubes have been discontinued, chest tube insertion sites are clean dry and intact LUNGS: Equal air entry with no crackles, wheeze, rhonchi or dullness. CVS: Regular rate and rhythm, normal S1 and S2, no gallops, no murmurs, no rubs ABDOMEN: Soft, nontender. No hepatosplenomegaly, normal bowel sounds, no guarding or rigidity. EXTREMITIES: No clubbing, no edema, no cyanosis, 2+ pulses and upper and lower extremities. MUSCULOSKELETAL: Muscle strength and tone normal. SPINE: No scoliosis or deformity SKIN: No rashes, left leg interrupted incision covered with Tad wrap - Labs CBC & Chem 7: 01/03/22 04:38 01/03/22 04:38 Labs: Abnormal Lab Results - Last 24 Hours (Table) 01/02/22 01/02/22 01/02/22 Range/Units 12:31 15:34 17:43 WBC (3.8-10.6) k/uL RBC (3.80-5.40) m/uL Hgb (11.4-16.0) gm/dL Hct (34.0-46.0) % MCHC (31.0-37.0) g/dL RDW (11.5-15.5) % Plt Count (150-450) k/uL ABG pO2 136 H (83-108) mmHg ABG HCO3 26 H (21-25) mmol/L ABG Total CO2 27 H 25 H (19-24) mmol/L ABG O2 Saturation 97.3 H 98.0 H (94-97) % Chloride (98-107) mmol/L BUN (7-17) mg/dL Glucose (74-99) mg/dL POC Glucose (mg/dL) 170 H (75-99) mg/dL AST (14-36) U/L ALT (4-34) U/L Total Protein (6.3-8.2) g/dL Albumin (3.5-5.0) g/dL 01/03/22 01/03/22 01/03/22 Range/Units 00:10 04:38 04:38 WBC 12.9 H (3.8-10.6) k/uL RBC 2.48 L (3.80-5.40) m/uL Hgb 6.6 L* (11.4-16.0) gm/dL Hct 22.0 L (34.0-46.0) % MCHC 29.7 L (31.0-37.0) g/dL RDW 17.5 H (11.5-15.5) % Plt Count 617 H (150-450) k/uL ABG pO2 (83-108) mmHg ABG HCO3 (21-25) mmol/L ABG Total CO2 (19-24) mmol/L ABG O2 Saturation (94-97) % Chloride 115 H (98-107) mmol/L BUN 26 H (7-17) mg/dL Glucose 203 H (74-99) mg/dL POC Glucose (mg/dL) 185 H (75-99) mg/dL AST 87 H (14-36) U/L ALT 85 H (4-34) U/L Total Protein 6.0 L (6.3-8.2) g/dL Albumin 2.8 L (3.5-5.0) g/dL 01/03/22 01/03/22 01/03/22 Range/Units 04:45 05:48 11:24 WBC (3.8-10.6) k/uL RBC (3.80-5.40) m/uL Hgb (11.4-16.0) gm/dL Hct (34.0-46.0) % MCHC (31.0-37.0) g/dL RDW (11.5-15.5) % Plt Count (150-450) k/uL ABG pO2 150 H (83-108) mmHg ABG HCO3 (21-25) mmol/L ABG Total CO2 27 H (19-24) mmol/L ABG O2 Saturation 99.3 H (94-97) % Chloride (98-107) mmol/L BUN (7-17) mg/dL Glucose (74-99) mg/dL POC Glucose (mg/dL) 212 H 148 H (75-99) mg/dL AST (14-36) U/L ALT (4-34) U/L Total Protein (6.3-8.2) g/dL Albumin (3.5-5.0) g/dL Microbiology - Last 24 Hours (Table) 12/29/21 21:00 Gram Stain - Final Sputum Sputum Culture - Final Streptococcus pneumoniae Corynebacterium striatum Assessment and Plan Plan: Assessment: #1. Symptomatic multivessel coronary artery disease, status post three-vessel coronary artery bypass grafting with DE LA CRUZ to LAD, SVG to the OM, SVG to the PDA, left atrial appendage exclusion with 35 mm Atriclip on 12/21/2021 #2. Routine postoperative ventilator management, patient was successfully weaned and extubated on postoperative day #1, on 12/22/2021. However on 12/26/2021 patient has developed suspected acute alcohol/drug withdrawal and required to be reintubated and placed back on mechanical and alert. Patient was given another spontaneous breathing trial, and extubation trial on 12/31/2021 and the patient yet again failed within a few hours. She underwent another trial extubation on 01/02/2022 and had to be reintubated for increased respiratory secretions, pleural effusions, and stridor. At this time we're recommending tracheostomy tube placement in view of multiple extubation trial failures #3. Acute blood loss anemia, an expected outcome of sternotomy, and bypass s urgery, requiring transfusion with blood products, patient has received 3 units of packed red blood cells for hemoglobin of 6.6 #4. History of substance abuse including cocaine, EtOH, and marijuana. Urine drug screen on the day of surgery on 12/21/2021 is positive for cocaine and benzodiazepines #5. History of single kidney, with history of nephrectomy #6. Chronic and ongoing tobacco dependence #7. History of CVA #8. Hypertension #9. Hyperlipidemia #10. History of COPD #11. Depression #12. History of hepatitis C Plan: Continue assist-control mode of ventilation Continue antibiotics, Sputum cultures have resulted in the Streptococcus pneumonia, will discontinue vancomycin Add IV steroids Solu-Medrol 60 g every 6 hours, IV Lasix has been added per CT surgery Blood transfusion per CT surgery recommendations Continue breathing treatments Pulmonary toileting, endotracheal suctioning Patient will likely need tracheostomy tube placement in view of multiple extubation failures Continue with current medical treatment Patient is following command We'll place the patient back on sedation, No weaning trials today Continue nutritional support I have personally seen and examined the patient, performed the documentation and the assessment and plan as written. Number of minutes spent on the visit: [15] Time with Patient: Greater than 30
--- NOTE | 2022-01-03 13:18 | P.PN ---
Subjective Progress Note Date: 01/03/22 Principal diagnosis: Coronary artery disease with left main disease. Past medical history significant for hypertension, current ongoing tobacco dependence with mild COPD, daily EtOH use (1 pint per day of liquor), occasional marijuana and cocaine use (UDS was positive for cocaine on admission), hepatitis C, CVA 20 years ago, and solitary kidney. POD #12 coronary artery bypass grafting 3 vessels, left internal mammary artery to the left anterior descending artery, a reverse saphenous vein graft to the obtuse marginal coronary artery, a reverse saphenous vein graft to the posterior descending coronary artery, endoscopic harvesting of the left greater saphenous vein, ligation of the left atrial appendage using a 35 mm AtriClip, epi-aortic ultrasound and intraoperative transesophageal echocardiogram Postoperative acute blood loss anemia and thrombocytopenia, expected given hemodilution and cardiopulmonary bypass pump. Suspected alcohol/drug withdrawal with thoracoabdominal dyssynchrony breathing pattern, reintubated per Dr. Thornton. The patient was seen and examined at her bedside in the intensive care unit today 01/03/2022. She remains sedated with a fentanyl drip and propofol drip, is intubated with mechanical ventilator support with current mechanical vent ilator settings assist control 20, TV 375, FiO2 60% and PEEP of 5. Yesterday 01/02/2022 she was extubated and shortly after apparently became stridorous with some respiratory compromise and was subsequently reintubated. ABG results this morning show a pH of 7.38, pCO2 43, pO2 150, HCO3 25, oxygen saturation 99.3 and base excess 0.3. The patient does open up her eyes with verbal stimuli and does follow simple commands appropriately at times. OG tube in place with tube feedings of vital high-protein infusing at goal rate of 50 mL per hour. She has been afebrile in the last 24 hours and remains on cefepime for antibiotic coverage for a sputum culture positive for Streptococcus pneumoniae and Corynebacterium striatum. Antibiotics are being managed by pulmonary/critical care medicine. Young catheter remains in place for accurate I's and O's, she did receive 2 doses of Lasix 40 mg IV yesterday 01/02/2022. Laboratory results this morning show a WBC count of 12.9, hemoglobin 6.6, hematocrit 22.0, platelets 617, sodium 144, potassium 4.1, CO2 26, BUN 26, creatinine 0.64, calcium 8.9 and magnesium 2.2. She remained hemodynamically stable and is currently on no inotropic or pressor support. Objective - Vital Signs Vital signs: Vital Signs Temp 98.2 F 01/03/22 12:00 Pulse 71 01/03/22 12:00 Resp 7 L 01/03/22 12:00 BP 106/60 01/03/22 12:00 Pulse Ox 97 01/03/22 12:00 FiO2 40 01/03/22 12:00 Intake & Output 01/02/22 01/03/22 01/03/22 18:59 06:59 18:59 Intake Total 2344.482 2925.790 779.942 Output Total 1935 565 770 Balance -853.104 994.790 9.942 Weight 75 kg 75 kg Intake: IV 286 264 120 0.9 @ 20 220 240 120 Pressure Bag 66 24 Intake, IV Titration 595.896 605.790 381.942 Amount Cefepime 2 gm In Sodium 200 100 100 Chloride 0.9% 100 ml @ 25 mls/hr IVPB Q8H [facility] Rx#: [id number] Vancomycin 1,250 mg In 250 250 250 Sodium Chloride 0.9% 250 ml @ 125 mls/hr IVPB Q12HR [facility] Rx#:[id number] fentaNYL (PF). 1,000 mcg 68.25 19.535 In Sodium Chloride 0.9% 80 ml @ 0.5 MCG/KG/HR 3. 64 mls/hr IV .Q24H [facility] Rx #:[id number] propofoL 1,000 mg In 77.646 236.255 31.942 Empty Bag 1 bag @ 5 MCG/ KG/MIN 2.139 mls/hr IV . Q24H [facility] Rx#:[id number] Tube Feeding 200 600 278 Other 90 Output: Urine 1685 565 770 Other 250 Other: Voiding Method Indwelling Catheter Indwelling Catheter Indwelling Catheter ABP, PAP, CO, CI - Last Documented Arterial Blood Pressure 88/40 Pulmonary Artery Pressure 34/8 Cardiac Output 4.8 Cardiac Index 2.7 - Exam CONSTITUTIONAL: Currently laying in bed in the intensive care unit. She is sedated with and remains intubated with mechanical ventilator support. RESPIRATORY: Lungs sounds diminished throughout bilaterally. Respirations are symmetrical, and nonlabored with mechanical ventilator support. Current mechanical ventilator settings are assist control 20, TV 375, FiO2 40% and a PEEP of 5. Oxygen saturation are 100% on current mechanical ventilator settings. ET tube in place at 22 cm at the lip. CARDIOVASCULAR: S1, S2 present. Regular rate and rhythm, sinus rhythm on telemetry, heart rate 75 BPM. Sternum stable. Palpable peripheral pulses bilaterally. No edema present. No calf pain or tenderness noted. Heart hugger, antiembolism stockings, SCDs present. GASTROINTESTINAL: Abdomen soft, nontender, nondistended. Active bowel sounds present 4 quadrants. No guarding or rigidity. OG tube in place with vital high-protein to feeding infusing at 50 mL per hour with automatic water flushes 30 mL every 4 hours. Bowel movement yesterday 01/02/2022. GENITOURINARY: Young catheter in place for accurate I's and O's. Urine output 335 mL in the last 8 hours. INTEGUMENTARY: Skin is warm and dry with evidence of clubbing or cyanosis. midline sternal chest incision well approximated and covered with dry intact dressing. Left lower extremity EVH site well approximated without redness or drainage. NEUROLOGIC: Currently sedated on fentanyl and Diprivan drips, unable to accurately assess. Musculoskeletal: Moves all 4 extremities. INVASIVE LINES AND TUBES: A/V epicardial pacemaker wires present, and grounded. Left subclavian triple-lumen catheter and right brachial arterial line in place and functioning. - Allied health notes Allied health notes reviewed: nursing - Labs CBC & Chem 7: 01/03/22 04:38 01/03/22 04:38 Labs: Abnormal Lab Results - Last 24 Hours (Table) 01/02/22 01/02/22 01/03/22 Range/Units 15:34 17:43 00:10 WBC (3.8-10.6) k/uL RBC (3.80-5.40) m/uL Hgb (11.4-16.0) gm/dL Hct (34.0-46.0) % MCHC (31.0-37.0) g/dL RDW (11.5-15.5) % Plt Count (150-450) k/uL ABG pO2 136 H (83-108) mmHg ABG Total CO2 25 H (19-24) mmol/L ABG O2 Saturation 98.0 H (94-97) % Chloride (98-107) mmol/L BUN (7-17) mg/dL Glucose (74-99) mg/dL POC Glucose (mg/dL) 170 H 185 H (75-99) mg/dL AST (14-36) U/L ALT (4-34) U/L Total Protein (6.3-8.2) g/dL Albumin (3.5-5.0) g/dL 01/03/22 01/03/22 01/03/22 Range/Units 04:38 04:38 04:45 WBC 12.9 H (3.8-10.6) k/uL RBC 2.48 L (3.80-5.40) m/uL Hgb 6.6 L* (11.4-16.0) gm/dL Hct 22.0 L (34.0-46.0) % MCHC 29.7 L (31.0-37.0) g/dL RDW 17.5 H (11.5-15.5) % Plt Count 617 H (150-450) k/uL ABG pO2 150 H (83-108) mmHg ABG Total CO2 27 H (19-24) mmol/L ABG O2 Saturation 99.3 H (94-97) % Chloride 115 H (98-107) mmol/L BUN 26 H (7-17) mg/dL Glucose 203 H (74-99) mg/dL POC Glucose (mg/dL) (75-99) mg/dL AST 87 H (14-36) U/L ALT 85 H (4-34) U/L Total Protein 6.0 L (6.3-8.2) g/dL Albumin 2.8 L (3.5-5.0) g/dL 01/03/22 01/03/22 Range/Units 05:48 11:24 WBC (3.8-10.6) k/uL RBC (3.80-5.40) m/uL Hgb (11.4-16.0) gm/dL Hct (34.0-46.0) % MCHC (31.0-37.0) g/dL RDW (11.5-15.5) % Plt Count (150-450) k/uL ABG pO2 (83-108) mmHg ABG Total CO2 (19-24) mmol/L ABG O2 Saturation (94-97) % Chloride (98-107) mmol/L BUN (7-17) mg/dL Glucose (74-99) mg/dL POC Glucose (mg/dL) 212 H 148 H (75-99) mg/dL AST (14-36) U/L ALT (4-34) U/L Total Protein (6.3-8.2) g/dL Albumin (3.5-5.0) g/dL Microbiology - Last 24 Hours (Table) 12/29/21 21:00 Gram Stain - Final Sputum Sputum Culture - Final Streptococcus pneumoniae Corynebacterium striatum - Imaging and Cardiology Chest x-ray: report reviewed, image reviewed Assessment and Plan Assessment: 1. Coronary artery disease with left main disease, status post three-vessel CABG 2. History of hypertension 3. Current ongoing tobacco dependence 4. Mild COPD, preoperative FEV1 was 73% of predicted 5. Daily EtOH use (1 pint per day of liquor) 6. Occasional marijuana and cocaine use (UDS was positive for cocaine on admission) 7. Hepatitis C 8. CVA 20 years ago 9. Solitary kidney. 10. Postoperative acute blood loss anemia and thrombocytopenia, expected 11. Suspected alcohol/drug withdrawal with thoracoabdominal dyssynchrony breathing pattern, respiratory compromise and stridor requiring reintubation Plan: 1. Continue aspirin, statin, Plavix, Norvasc, beta briana. Increase metoprolol tartrate as tolerated. 2. Mechanical ventilator, bronchodilators per pulmonary/critical care medicine. Mechanical ventilator weaning her Dr. pulmonary/critical care medicine recommendations. 3. Fentanyl and Diprivan drip management per pulmonary/critical care medicine. 4. Will monitor daily labs and chest x-rays. Electrolyte replacement per prot ocol. 5. GI/DVT prophylaxis. 6. Pain control current medication regimen. 7. CIWA protocol. Continue Seroquel 100 mg per OG tube twice a day. 8. Insulin management per primary care services. Patient is not diabetic, preoperative hemoglobin A1c 5.4%. 9. Patient counseled preoperatively and will continue to be counseled throughout her stay that she should refrain from smoking, drinking, using illicit drugs. 10. Keep Young catheter in place for accurate I's and O's, continue to record strict and accurate intake and output. Daily weights. 11. Lasix 40 mg IV 1 now and again at 4 PM today. Potassium chloride 20 mg by OG tube 1 dose now and again at 4 PM today. 12. Keep atrial and ventricular epicardial pacemaker wires in place and grounded. 13. Keep OG tube in place with vital high-protein to feedings infusing per dietitian recommendations. 14. Cefepime IV antibiotic management per pulmonary/critical care service recommendations. 15. More recommendations to follow based on patient's clinical course. Time with Patient: Greater than 30
[2022-01-03] MEDS: FERROUS SULFATE ORAL ELIXIR 300 MG/5 ML CUP OG-TUBE SCH (15:32)
[2022-01-03 18:08] LABS: Glucose,Whole Blood 223 mg/dL (75-99)
[2022-01-03] MEDS: ASCORBIC ACID 500 MG TAB OG-TUBE SCH (20:11)
[2022-01-03] MEDS: SENNOSIDES-DOCUSATE SODIUM 1 EACH TAB PO SCH (20:11)
[2022-01-03 23:48] LABS: Glucose,Whole Blood 179 mg/dL (75-99)
[2022-01-04] MEDS: fentaNYL (PF). 1,000 MCG in SODIUM CHLORIDE 0.9% 80 ML IV SCH (00:24)
[2022-01-04] MEDS: CEFEPIME 2 GM in SODIUM CHLORIDE 0.9% 100 ML IVPB SCH ×3 (02:25→17:06)
[2022-01-04 04:55] LABS: Anisocytosis Slight; HCT 21.9 % (34.0-46.0); Hypochromasia Marked; MCH 25.9 pg (25.0-35.0); MCHC 29.4 g/dL (31.0-37.0); Mean Platelet Volume 9.2; Poikilocytosis Slight; RBC 2.49 m/uL (3.80-5.40); RDW 17.6 % (11.5-15.5)
[2022-01-04 05:04] LABS: ALT 79 U/L (4-34); AST 69 U/L (14-36); African American GFR (CKD) >90 (>60 ml/min/1.73 sqM); Albumin 2.7 g/dL (3.5-5.0); Alkaline Phosphatase 58 U/L (38-126); Anion Gap 6 mmol/L; Blood Urea Nitrogen 37 mg/dL (7-17); Calcium 8.9 mg/dL (8.4-10.2); Carbon Dioxide 25 mmol/L (22-30); Chloride 115 mmol/L (98-107); Glucose 186 mg/dL (74-99); Non-African American GFR(CKD) 83 (>60 ml/min/1.73 sqM); Potassium 4.3 mmol/L (3.5-5.1); Sodium 146 mmol/L (137-145); Total Bilirubin 0.5 mg/dL (0.2-1.3); Total Protein 6.1 g/dL (6.3-8.2)
[2022-01-04] MEDS: INSULIN ASPART (NovoLOG) 100 UNIT/ML VIAL SQ SCH ×4 (05:13→23:55)
[2022-01-04] MEDS: methylPREDNISolone SOD SUCCI 125 MG/2 ML VIAL IV SCH ×2 (05:13→07:48)
[2022-01-04 05:22] LABS: Glucose,Whole Blood 192 mg/dL (75-99)
[2022-01-04 06:03] LABS: HGB 6.5 gm/dL (11.4-16.0)
[2022-01-04 06:12] LABS: ABG Base Excess 0.3 mmol/L; ABG HCO3 25 mmol/L (21-25); ABG Oxygen Saturation 97.6 % (94-97); ABG PCO2 39 mmHg (35-45); ABG PH 7.41 (7.35-7.45); ABG PO2 89 mmHg (83-108); ABG TCO2 26 mmol/L (19-24); Allen Test Performed? Yes
[2022-01-04 07:19] LABS: Band Neutrophils % 8 %; Lymphocytes # (M) 1.02 k/uL (1.0-4.8); Monocytes # (M) 0.38 k/uL (0-1.0); Neutrophils % (M) 82 %; Nucleated Red Blood Cells 4 /100 WBC (0-0); Total Cells Counted 200; WBC 12.8 k/uL (3.8-10.6)
[2022-01-04 07:20] LABS: Large Platelets Present; Polychromasia Present; Target Cells Present
[2022-01-04 07:21] LABS: RBC Fragments Present
[2022-01-04 07:25] LABS: Platelet Count 621 k/uL (150-450)
[2022-01-04] MEDS: CHLORHEXIDINE GLUCONATE 15 ML CUP MUCOUS MEM SCH ×2 (07:46→20:38)
[2022-01-04] MEDS: PANTOPRAZOLE 40 MG/10 ML VIAL IVP SCH (07:47)
[2022-01-04] MEDS: HEPARIN SODIUM,PORCINE/PF 5,000 UNIT/0.5 ML SYRINGE SQ SCH ×3 (07:47→23:55)
[2022-01-04] MEDS: QUEtiapine 100 MG TAB PO SCH ×2 (07:47→20:38)
[2022-01-04] MEDS: THIAMINE 100 MG TAB PO SCH ×2 (07:47→17:15)
[2022-01-04] MEDS: CLOPIDOGREL 75 MG TAB PO SCH (07:47)
[2022-01-04] MEDS: MULTIVITAMINS, THERA 1 EACH TAB PO SCH ×2 (07:48→17:07)
[2022-01-04] MEDS: ASCORBIC ACID 500 MG TAB OG-TUBE SCH ×2 (07:48→20:38)
[2022-01-04] MEDS: FLUoxetine HCL 20 MG CAP PO SCH (07:48)
[2022-01-04] MEDS: ATORVASTATIN 40 MG TAB PO SCH (07:48)
[2022-01-04] MEDS: ASPIRIN 81 MG PO SCH (07:48)
[2022-01-04] MEDS: METOPROLOL TARTRATE 50 MG TAB PO SCH ×2 (07:48→20:38)
[2022-01-04] MEDS: FERROUS SULFATE ORAL ELIXIR 300 MG/5 ML CUP OG-TUBE SCH ×2 (07:50→17:06)
--- NOTE | 2022-01-04 08:10 | XR ---
EXAMINATION TYPE: XR chest 1V portable DATE OF EXAM: 01/04/2022 COMPARISON: X-ray dated 01/03/2022 HISTORY: Postoperative TECHNIQUE: Single frontal view of the chest is obtained. FINDINGS: The tip of endotracheal tube is about 3.4 cm proximal to the henrry. NG tube is seen with the tip is inferior to the diaphragm. Left subclavian line with the tip is likely at the superior aspect of the right atrium. Slightly more prominent atelectasis along the lateral aspect of the left mid and lower lung zones. Carty spected small pleural effusions. Unchanged cardiomegaly sinus silhouette, aortic atherosclerotic calc ification and sternotomy wire sutures. IMPRESSION: As above.
[2022-01-04] MEDS: IPRATROPIUM-ALBUTEROL 3 ML NEB INHALATION SCH ×4 (08:23→20:08)
--- NOTE | 2022-01-04 10:52 | P.PN ---
Subjective Progress Note Date: 01/04/22 Principal diagnosis: Coronary artery disease with left main disease. Past medical history significant for hypertension, current ongoing tobacco dependence with mild COPD, daily EtOH use (1 pint per day of liquor), occasional marijuana and cocaine use (UDS was positive for cocaine on admission), hepatitis C, CVA 20 years ago, and solitary kidney. POD #13 coronary artery bypass grafting 3 vessels, left internal mammary artery to the left anterior descending artery, a reverse saphenous vein graft to the obtuse marginal coronary artery, a reverse saphenous vein graft to the posterior descending coronary artery, endoscopic harvesting of the left greater saphenous vein, ligation of the left atrial appendage using a 35 mm AtriClip, epi-aortic ultrasound and intraoperative transesophageal echocardiogram Postoperative acute blood loss anemia and thrombocytopenia, expected given hemodilution and cardiopulmonary bypass pump. Suspected alcohol/drug withdrawal with thoracoabdominal dyssynchrony breathing pattern, reintubated per Dr. Thornton. The patient was seen and examined at her bedside in the intensive care unit today 01/04/2022. She remains sedated with a fentanyl drip and propofol drip, is intubated with mechanical ventilator support with current mechanical vent ilator settings assist control 20, TV 375, FiO2 40% and PEEP of 5. Oxygen saturations are 98% on current mechanical ventilator settings. ABG results this morning show a pH of 7.41, pCO2 39, pO2 89, HCO3 25, oxygen saturation 97.6 and base excess 0.3. The patient remains hemodynamically stable and is currently on no inotropic pressor support. Bedside telemetry showing normal sinus rhythm heart rate 79 BPM. Laboratory results this morning show a WBC count of 12.8, hemoglobin 6.5, hematocrit 21.9, platelets 621, sodium 146, potassium 4.3, BUN 37, creatinine 0.76, glucose 186, calcium 8.9, AST 69 and ALT 79. The patient was started on Solu-Medrol 60 mg IV push every 6 hours yesterday and her blood sugars have been ranging from 179-223 in the past 24 hours. OG tube remains in place with vital high-protein infusing at 39 mL per hour with 30 mL every 4 hours of water flushes. Chest x-ray was reviewed. Lasix 40 mg IVP 2 doses was given yesterday with good diuresis. She remains afebrile the last 24 hours. Sputum culture from 12/29/2021 showed Streptococcus pneumoniae and Corynebact erium striatum. She remains on cefepime 2 g IV piggyback every 8 hours for antibiotic coverage. Objective - Vital Signs Vital signs: Vital Signs Temp 98.2 F 01/04/22 08:00 Pulse 67 01/04/22 10:00 Resp 20 01/04/22 10:00 BP 126/65 01/04/22 10:00 Pulse Ox 98 01/04/22 10:00 FiO2 40 01/04/22 08:21 Intake & Output 01/03/22 01/04/22 01/04/22 18:59 06:59 18:59 Intake Total 1097.835 0450.566 373.932 Output Total 1780 1000 260 Balance -546.058 158.566 113.932 Weight 75 kg 76 kg Intake: IV 240 258 80 0.9 @ 20 240 240 80 Pressure Bag 18 Intake, IV Titration 481.942 381.566 137.932 Amount Cefepime 2 gm In Sodium 200 100 100 Chloride 0.9% 100 ml @ 25 mls/hr IVPB Q8H [facility] Rx#: [id number] Vancomycin 1,250 mg In 250 Sodium Chloride 0.9% 250 ml @ 125 mls/hr IVPB Q12HR [facility] Rx#:[id number] fentaNYL (PF). 1,000 mcg 91.728 In Sodium Chloride 0.9% 80 ml @ 0.5 MCG/KG/HR 3. 64 mls/hr IV .Q24H [facility] Rx #:[id number] propofoL 1,000 mg In 31.942 189.838 37.932 Empty Bag 1 bag @ 5 MCG/ KG/MIN 2.139 mls/hr IV . Q24H [facility] Rx#:[id number] Tube Feeding 512 429 156 Other 90 Output: Urine 1780 1000 260 Other: Voiding Method Indwelling Catheter Indwelling Catheter Indwelling Catheter ABP, PAP, CO, CI - Last Documented Arterial Blood Pressure 124/52 Pulmonary Artery Pressure 34/8 Cardiac Output 4.8 Cardiac Index 2.7 - Exam CONSTITUTIONAL: Currently laying in bed in the intensive care unit. She is sedated with fentanyl and propofol drips, remains intubated with mechanical ventilator support. RESPIRATORY: Lungs sounds diminished throughout bilaterally. Respirations are symmetrical, and nonlabored with mechanical ventilator support. Current mechanical ventilator settings are assist control 20, TV 375, FiO2 40% and a PEEP of 5. Oxygen saturation are 98 % on current mechanical ventilator settings. ET tube in place at 22 cm at the lip. CARDIOVASCULAR: S1, S2 present. Regular rate and rhythm, sinus rhythm on telemetry, heart rate 79 BPM. Sternum stable. Palpable peripheral pulses bilaterally. No edema present. No calf pain or tenderness noted. Heart hugger, antiembolism stockings, SCDs present. GASTROINTESTINAL: Abdomen soft, nontender, nondistended. Active bowel sounds present 4 quadrants. No guarding or rigidity. OG tube in place with vital high-protein to feeding infusing at 39 mL per hour with automatic water flushes 30 mL every 4 hours. Bowel movement yesterday 01/02/2022. GENITOURINARY: Young catheter in place for accurate I's and O's. Urine output 575 mL in the last 8 hours. INTEGUMENTARY: Skin is warm and dry with evidence of clubbing or cyanosis. midline sternal chest incision well approximated and covered with dry intact dressing. Left lower extremity EVH site well approximated without redness or drainage. NEUROLOGIC: Currently sedated on fentanyl and Diprivan drips, unable to accurately assess. Musculoskeletal: Moves all 4 extremities, equal strength bilaterally. INVASIVE LINES AND TUBES: A/V epicardial pacemaker wires present, and grounded. Left subclavian triple-lumen catheter and right brachial arterial line in place and functioning. - Allied health notes Allied health notes reviewed: nursing - Labs CBC & Chem 7: 01/04/22 04:38 01/04/22 04:38 Labs: Abnormal Lab Results - Last 24 Hours (Table) 01/03/22 01/03/22 01/03/22 Range/Units 11:24 18:06 23:47 WBC (3.8-10.6) k/uL RBC (3.80-5.40) m/uL Hgb (11.4-16.0) gm/dL Hct (34.0-46.0) % MCHC (31.0-37.0) g/dL RDW (11.5-15.5) % Plt Count (150-450) k/uL Neutrophils # (Manual) (1.3-7.7) k/uL Nucleated RBCs (0-0) /100 WBC ABG Total CO2 (19-24) mmol/L ABG O2 Saturation (94-97) % Sodium (137-145) mmol/L Chloride (98-107) mmol/L BUN (7-17) mg/dL Glucose (74-99) mg/dL POC Glucose (mg/dL) 148 H 223 H 179 H (75-99) mg/dL AST (14-36) U/L ALT (4-34) U/L Total Protein (6.3-8.2) g/dL Albumin (3.5-5.0) g/dL 01/04/22 01/04/22 01/04/22 Range/Units 04:38 04:38 05:10 WBC 12.8 H (3.8-10.6) k/uL RBC 2.49 L (3.80-5.40) m/uL Hgb 6.5 L* (11.4-16.0) gm/dL Hct 21.9 L (34.0-46.0) % MCHC 29.4 L (31.0-37.0) g/dL RDW 17.6 H (11.5-15.5) % Plt Count 621 H (150-450) k/uL Neutrophils # (Manual) 11.50 H (1.3-7.7) k/uL Nucleated RBCs 4 H (0-0) /100 WBC ABG Total CO2 (19-24) mmol/L ABG O2 Saturation (94-97) % Sodium 146 H (137-145) mmol/L Chloride 115 H (98-107) mmol/L BUN 37 H (7-17) mg/dL Glucose 186 H (74-99) mg/dL POC Glucose (mg/dL) 192 H (75-99) mg/dL AST 69 H (14-36) U/L ALT 79 H (4-34) U/L Total Protein 6.1 L (6.3-8.2) g/dL Albumin 2.7 L (3.5-5.0) g/dL 01/04/22 Range/Units 06:08 WBC (3.8-10.6) k/uL RBC (3.80-5.40) m/uL Hgb (11.4-16.0) gm/dL Hct (34.0-46.0) % MCHC (31.0-37.0) g/dL RDW (11.5-15.5) % Plt Count (150-450) k/uL Neutrophils # (Manual) (1.3-7.7) k/uL Nucleated RBCs (0-0) /100 WBC ABG Total CO2 26 H (19-24) mmol/L ABG O2 Saturation 97.6 H (94-97) % Sodium (137-145) mmol/L Chloride (98-107) mmol/L BUN (7-17) mg/dL Glucose (74-99) mg/dL POC Glucose (mg/dL) (75-99) mg/dL AST (14-36) U/L ALT (4-34) U/L Total Protein (6.3-8.2) g/dL Albumin (3.5-5.0) g/dL - Imaging and Cardiology Chest x-ray: report reviewed, image reviewed Assessment and Plan Assessment: 1. Coronary artery disease with left main disease, status post three-vessel CABG 2. History of hypertension 3. Current ongoing tobacco dependence 4. Mild COPD, preoperative FEV1 was 73% of predicted 5. Daily EtOH use (1 pint per day of liquor) 6. Occasional marijuana and cocaine use (UDS was positive for cocaine on admission) 7. Hepatitis C 8. CVA 20 years ago 9. Solitary kidney. 10. Postoperative acute blood loss anemia and thrombocytopenia, expected 11. Suspected alcohol/drug withdrawal with thoracoabdominal dyssynchrony breathing pattern, respiratory compromise and stridor requiring reintubation Plan: 1. Continue aspirin, statin, Plavix, Norvasc, and beta briana. Increase metoprolol tartrate as tolerated. 2. Mechanical ventilator, bronchodilators per pulmonary/critical care medicine. Mechanical ventilator weaning her Dr. pulmonary/critical care medicine recommendations. 3. Fentanyl and Diprivan drip management per pulmonary/critical care medicine. 4. Will monitor daily labs and chest x-rays. Electrolyte replacement per protocol. 5. GI/DVT prophylaxis. 6. Pain control current medication regimen. 7. CIWA protocol. Continue Seroquel 100 mg per OG tube twice a day. 8. Insulin management per primary care services. Patient is not diabetic, preoperative hemoglobin A1c 5.4%. 9. Patient counseled preoperatively and will continue to be counseled throughout her stay that she should refrain from smoking, drinking, using illicit drugs. 10. Keep Young catheter in place for accurate I's and O's, continue to record strict and accurate intake and output. Daily weights. 11. No diuresis today as her sodium is up to 146 and her BUN is 37. Water flushes on the tube feedings have been increased to 200 mL every 4 hours. 12. Keep atrial and ventricular epicardial pacemaker wires in place and grounded. 13. Keep OG tube in place with vital high-protein to feedings infusing per dietitian recommendations. 14. Cefepime IV antibiotic management per pulmonary/critical care service triston mmendations. Sputum culture from 12/29/2021 showed Streptococcus pneumoniae and Corynebacterium striatum. 15. Solu-Medrol has been discontinued and she has been started on Decadron 6 mg IVP twice a day by pulmonary critical care medicine. 16. More recommendations to follow based on patient's clinical course. Time with Patient: Greater than 30
[2022-01-04] MEDS: DEXAMETHASONE SOD PHOSPHATE 10 MG/ML 1 ML VIAL IVP SCH ×2 (11:44→20:38)
[2022-01-04 11:49] LABS: Glucose,Whole Blood 259 mg/dL (75-99)
[2022-01-04] MEDS: amLODIPine 10 MG TAB PO SCH (11:53)
--- NOTE | 2022-01-04 13:27 | P.PN ---
Subjective Progress Note Date: 01/04/22 Principal diagnosis: POD #13 coronary artery bypass grafting 3 vessels, left internal mammary artery to the left anterior descending artery, a reverse saphenous vein graft to the obtuse marginal coronary artery, a reverse saphenous vein graft to the posterior descending coronary artery, endoscopic harvesting of the left greater saphenous vein, ligation of the left atrial appendage using a 35 mm AtriClip, epi-aortic ultrasound and intraoperative transesophageal echocardiogram On 01/03/2022 patient seen in follow-up in intensive care unit, yesterday patient was again weaned and extubated from the mechanical ventilator however she again quickly field, partially because of Stridor, her pulmonary secretions were reportedly improved at the time. Patient was reintubated and placed on mechanical ventilator, this morning she is on assist-control mode of ventilation with a rate of 20, tidal vital 375, FiO2 40% and PEEP of 5, this morning's blood gas shows pO2 of 150, pCO2 43, pH of 7.38. Chest x-ray showing bilateral small pleural effusions, and left lower lung pulmonary atelectasis. Per respiratory therapy patient continues to have quite significant amount of secretions from the ET tube, although the amount and color seem to have improved some. Patient is currently sedated on Diprivan at 35 mics per kilo per minute, and she is waking up and following simple commands, she is on fentanyl infusion at 0.5 mics per kilo per minute, and 0.9 normal saline at a rate of 20 ML per hour, she is tolerating tube feedings with vital HP at a rate of 50 with a goal of 50. She is in sinus mechanism at a rate of 98 BPM. Her [place] catheter has been discontinued. Mediastinal and right and left pleural chest tubes have been discontinued a few days ago. Patient continues on cefepime, and vancomycin. Sputum culture was positive for Streptococcus pneumonia and Corynebacterium stratum, and patient has been on cefepime and vancomycin. Patient has been receiving Lasix on a daily basis, and she was started on maintenance dose of IV Lasix 40 mg every 8 hours, and IV steroids with Solu-Medrol 60 mg every 6 hours. Patient underwent left-sided thoracentesis yesterday would removal of 250 mL of turbid blood-tinged fluid. The rest of today's lab 7 reviewed, showing white blood cell count of 12.9, hemoglobin is 6.6, platelet count of 617. Chloride was 1:15, the rest of the electrolytes were unremarkable, BUN is 26 and creatinine 0.64. Patient is waking up and following simple commands, she has however become aggressive, she is trying to talk to us. She is still producing moderate amount of yellow colored phlegm which is instructional consultant in color. She's been afebrile overnight, hold for surgical incisions are clean dry and intact, abdomen is soft, she is tolerating tube feedings. Reevaluated today on, patient remains in the ICU, intubated mechanically ventilated. Assist control rate of 20 to follow 375 FiO2 40% PEEP of 5. ABG showed a pO2 of 89 pCO2 of 39 pH of 7.41. Remains on propofol at 35 mcg/kg/m, and she is on fentanyl at 0.5 mcg/kg/h. Patient is not requiring any pressors. She is on vital HP as 59 mL per hour. Her sodium is climbing up, and I'm recommending free water to be given via orogastric tube at 200 mL 4 times a day. And I am planning to switch the Solu-Medrol to Decadron for presumptive stridor postextubation although there is no clear history whether the patient did develop stridor or she had difficulty coping with her secretions at any rate patient was extubated and reintubated 3 times already, and I have a very strong feeling that she will continue to fail extubation, and most likely the patient will require eventually tracheostomy and PEG tube placement. Chest x-ray today showed mostly atelectasis, and possibly cardiomegaly and small bilateral effusions. patient is sedated, but arousable, in spite of being on fentanyl and on propofol. WBC count is 12.8 hemoglobin is 6.5, there is quite a bit of reluctance from cardiac surgery to transfer the patient. Metabolic profile seems to be relatively unremarkable. Renal profile is normal Objective - Vital Signs Vital signs: Vital Signs Temp 98 F 01/04/22 12:00 Pulse 67 01/04/22 12:00 Resp 20 01/04/22 12:00 BP 132/64 01/04/22 12:00 Pulse Ox 97 01/04/22 12:00 FiO2 40 01/04/22 12:00 Intake & Output 01/03/22 01/04/22 01/04/22 18:59 06:59 18:59 Intake Total 6632.128 0794.566 491.932 Output Total 1780 1000 385 Balance -546.058 158.566 106.932 Weight 75 kg 76 kg Intake: IV 240 258 120 0.9 @ 20 240 240 120 Pressure Bag 18 Intake, IV Titration 481.942 381.566 137.932 Amount Cefepime 2 gm In Sodium 200 100 100 Chloride 0.9% 100 ml @ 25 mls/hr IVPB Q8H [facility] Rx#: [id number] Vancomycin 1,250 mg In 250 Sodium Chloride 0.9% 250 ml @ 125 mls/hr IVPB Q12HR [facility] Rx#:[id number] fentaNYL (PF). 1,000 mcg 91.728 In Sodium Chloride 0.9% 80 ml @ 0.5 MCG/KG/HR 3. 64 mls/hr IV .Q24H [facility] Rx #:[id number] propofoL 1,000 mg In 31.942 189.838 37.932 Empty Bag 1 bag @ 5 MCG/ KG/MIN 2.139 mls/hr IV . Q24H [facility] Rx#:[id number] Tube Feeding 512 429 234 Other 90 Output: Urine 1780 1000 385 Other: Voiding Method Indwelling Catheter Indwelling Catheter Indwelling Catheter ABP, PAP, CO, CI - Last Documented Arterial Blood Pressure 121/48 Pulmonary Artery Pressure 34/8 Cardiac Output 4.8 Cardiac Index 2.7 - Exam Physical Exam: Revealed 66-year-old female intubated mechanically ventilated sedated but arousable and follows simple instructions. Head: Atraumatic, normocephalic. Endotracheal tube and orogastric tube are intact. HEENT:[Neck is supple.] [No neck masses.] [No thyromegaly.] [No JVD.] Left subclavian triple-lumen catheter is noted. Chest: Symmetrical chest expansion, crackles at the bases no rhonchi and no wheezes. Cardiac Exam: Distant S1 and S2, no S3 gallop. Abdomen: [Soft, nontender, no megaly, no rebound, no guarding, normal bowel sounds.] Extremities: [No clubbing, trace of bipedal edema, no cyanosis.] Right brachial arterial line is noted. Neurological Exam: Grossly intact, patient is arousable and follows simple instructions. But seems to be rather slow and a bit lethargic since she is still on propofol and on fentanyl. Psychiatric: Normal mood affect and seems to have normal mental status. Skin: No rashes. - Labs CBC & Chem 7: 01/04/22 04:38 01/04/22 04:38 Labs: Abnormal Lab Results - Last 24 Hours (Table) 01/03/22 01/03/22 01/04/22 Range/Units 18:06 23:47 04:38 WBC 12.8 H (3.8-10.6) k/uL RBC 2.49 L (3.80-5.40) m/uL Hgb 6.5 L* (11.4-16.0) gm/dL Hct 21.9 L (34.0-46.0) % MCHC 29.4 L (31.0-37.0) g/dL RDW 17.6 H (11.5-15.5) % Plt Count 621 H (150-450) k/uL Neutrophils # (Manual) 11.50 H (1.3-7.7) k/uL Nucleated RBCs 4 H (0-0) /100 WBC ABG Total CO2 (19-24) mmol/L ABG O2 Saturation (94-97) % Sodium (137-145) mmol/L Chloride (98-107) mmol/L BUN (7-17) mg/dL Glucose (74-99) mg/dL POC Glucose (mg/dL) 223 H 179 H (75-99) mg/dL AST (14-36) U/L ALT (4-34) U/L Total Protein (6.3-8.2) g/dL Albumin (3.5-5.0) g/dL 01/04/22 01/04/22 01/04/22 Range/Units 04:38 05:10 06:08 WBC (3.8-10.6) k/uL RBC (3.80-5.40) m/uL Hgb (11.4-16.0) gm/dL Hct (34.0-46.0) % MCHC (31.0-37.0) g/dL RDW (11.5-15.5) % Plt Count (150-450) k/uL Neutrophils # (Manual) (1.3-7.7) k/uL Nucleated RBCs (0-0) /100 WBC ABG Total CO2 26 H (19-24) mmol/L ABG O2 Saturation 97.6 H (94-97) % Sodium 146 H (137-145) mmol/L Chloride 115 H (98-107) mmol/L BUN 37 H (7-17) mg/dL Glucose 186 H (74-99) mg/dL POC Glucose (mg/dL) 192 H (75-99) mg/dL AST 69 H (14-36) U/L ALT 79 H (4-34) U/L Total Protein 6.1 L (6.3-8.2) g/dL Albumin 2.7 L (3.5-5.0) g/dL 01/04/22 Range/Units 11:48 WBC (3.8-10.6) k/uL RBC (3.80-5.40) m/uL Hgb (11.4-16.0) gm/dL Hct (34.0-46.0) % MCHC (31.0-37.0) g/dL RDW (11.5-15.5) % Plt Count (150-450) k/uL Neutrophils # (Manual) (1.3-7.7) k/uL Nucleated RBCs (0-0) /100 WBC ABG Total CO2 (19-24) mmol/L ABG O2 Saturation (94-97) % Sodium (137-145) mmol/L Chloride (98-107) mmol/L BUN (7-17) mg/dL Glucose (74-99) mg/dL POC Glucose (mg/dL) 259 H (75-99) mg/dL AST (14-36) U/L ALT (4-34) U/L Total Protein (6.3-8.2) g/dL Albumin (3.5-5.0) g/dL Assessment and Plan Assessment: Impression: Coronary artery disease status post three-vessel CABG, postoperative day #13. Failure to wean and extubate, patient failed weaning 3 times, I am strongly recommending tracheostomy and PEG tube placement, however cardiothoracic surgery is recommending one more trial of weaning and extubation. As they felt that the patient was stridorous both extubation, and she is now on steroids, today I recommended Decadron to replace Solu-Medrol. Mild COPD, FEV1 is normally 73%. Tobacco dependence syndrome. History of alcoholism. Patient drinks on the average of 1 pint per day of liquor. History of hepatitis C. Status post left-sided thoracentesis on 01/02/22, however no more than 2 50 mL of fluid was drained. Postoperative blood loss anemia, expected history of CVA. History of depression. History of substance abuse including cocaine and alcohol and marijuana. History of nephrectomy. Patient has 1 solitary kidney. Recommendation: Continue ventilatory support Continue bronchodilators. Continue steroids.Continue antibiotics/cefepime. Continue GI and DVT prophylaxis. Continue nutritional support. Continue iron. Reassess for possible weaning trial again in the next 24 hours. However the patient fails extubation, then the patient will definitely need to be considered for tracheostomy and PEG tube placement. We will continue to follow. Critical care time is over 30 minutes Time with Patient: Greater than 30
[2022-01-04] MEDS: HYDROmorphone 1 MG/ML 1 ML SYRINGE IVP PRN ×2 (13:30→18:35)
[2022-01-04 18:00] LABS: Glucose,Whole Blood 272 mg/dL (75-99)
[2022-01-04] MEDS: SENNOSIDES-DOCUSATE SODIUM 1 EACH TAB PO SCH (20:38)
[2022-01-04 23:52] LABS: Glucose,Whole Blood 249 mg/dL (75-99)
[2022-01-05] MEDS: CEFEPIME 2 GM in SODIUM CHLORIDE 0.9% 100 ML IVPB SCH ×3 (01:31→16:59)
[2022-01-05] MEDS: fentaNYL (PF). 1,000 MCG in SODIUM CHLORIDE 0.9% 80 ML IV SCH ×2 (01:31→11:35)
[2022-01-05 04:55] LABS: Anisocytosis Slight; HCT 22.5 % (34.0-46.0); Hypochromasia Marked; MCHC 29.8 g/dL (31.0-37.0); MCV 87.3 fL (80.0-100.0); Platelet Count 702 k/uL (150-450); Poikilocytosis Moderate; RBC 2.58 m/uL (3.80-5.40); RDW 18.4 % (11.5-15.5)
[2022-01-05 05:32] LABS: HGB 6.7 gm/dL (11.4-16.0)
[2022-01-05 05:42] LABS: Glucose,Whole Blood 219 mg/dL (75-99)
[2022-01-05] MEDS: INSULIN ASPART (NovoLOG) 100 UNIT/ML VIAL SQ SCH (05:44)
[2022-01-05 05:59] LABS: Band Neutrophils % 3 %; Metamyelocytes % 2 %; Neutrophils % (M) 80 %; Nucleated Red Blood Cells 5 /100 WBC (0-0); Total Cells Counted 200
[2022-01-05 06:00] LABS: Lymphocytes # (M) 1.35 k/uL (1.0-4.8); Monocytes # (M) 1.05 k/uL (0-1.0); Polychromasia Present; RBC Fragments Present; Target Cells Present
[2022-01-05] MEDS: HYDROmorphone 1 MG/ML 1 ML SYRINGE IVP PRN (06:13)
[2022-01-05 06:20] LABS: ABG Base Excess -1.2 mmol/L; ABG HCO3 24 mmol/L (21-25); ABG PCO2 41 mmHg (35-45); ABG PH 7.37 (7.35-7.45); ABG PO2 92 mmHg (83-108); ABG TCO2 25 mmol/L (19-24); Allen Test Performed? Yes
[2022-01-05] MEDS: THIAMINE 100 MG TAB PO SCH ×2 (06:45→16:58)
[2022-01-05] MEDS: FERROUS SULFATE ORAL ELIXIR 300 MG/5 ML CUP OG-TUBE SCH ×2 (06:45→16:59)
[2022-01-05] MEDS: INSULIN REGULAR 100 UNIT in SODIUM CHLORIDE 0.9% 100 ML IV SCH (07:11)
[2022-01-05 07:12] LABS: Glucose,Whole Blood 229 mg/dL (75-99)
[2022-01-05 07:17] LABS: ALT 70 U/L (4-34); AST 55 U/L (14-36); African American GFR (CKD) >90 (>60 ml/min/1.73 sqM); Albumin 2.8 g/dL (3.5-5.0); Alkaline Phosphatase 56 U/L (38-126); Anion Gap 4 mmol/L; Blood Urea Nitrogen 36 mg/dL (7-17); Calcium 8.9 mg/dL (8.4-10.2); Carbon Dioxide 24 mmol/L (22-30); Chloride 118 mmol/L (98-107); Glucose 229 mg/dL (74-99); Non-African American GFR(CKD) 83 (>60 ml/min/1.73 sqM); Potassium 4.3 mmol/L (3.5-5.1); Sodium 146 mmol/L (137-145); Total Bilirubin 0.4 mg/dL (0.2-1.3); Total Protein 6.1 g/dL (6.3-8.2)
[2022-01-05] MEDS: IPRATROPIUM-ALBUTEROL 3 ML NEB INHALATION SCH ×4 (07:24→20:35)
[2022-01-05 08:15] LABS: Glucose,Whole Blood 208 mg/dL (75-99)
--- NOTE | 2022-01-05 08:22 | XR ---
EXAMINATION TYPE: XR chest 1V portable DATE OF EXAM: 01/05/2022 COMPARISON: X-ray dated 01/04/2022 HISTORY: Postoperative TECHNIQUE: Single frontal view of the chest is obtained. FINDINGS: The tip of the endotracheal tube is about 3.1 cm proximal to the henrry. Good position of the NG tube . Left subclavian line with the tip is likely in the right atrium. Improving opacity along the lateral aspect of the left midlung zone. Left lower lung zone is obscured by the cardiac shadow. Unchanged remainder of the lungs, cardiomediastinal silhouette and bony thora cic cage. IMPRESSION: As above.
[2022-01-05] MEDS: CLOPIDOGREL 75 MG TAB PO SCH (08:31)
[2022-01-05] MEDS: HEPARIN SODIUM,PORCINE/PF 5,000 UNIT/0.5 ML SYRINGE SQ SCH ×2 (08:31→16:59)
[2022-01-05] MEDS: DEXAMETHASONE SOD PHOSPHATE 10 MG/ML 1 ML VIAL IVP SCH ×2 (08:31→20:20)
[2022-01-05] MEDS: QUEtiapine 100 MG TAB PO SCH ×2 (08:31→20:21)
[2022-01-05] MEDS: FLUoxetine HCL 20 MG CAP PO SCH (08:31)
[2022-01-05] MEDS: ASPIRIN 81 MG PO SCH (08:31)
[2022-01-05] MEDS: ATORVASTATIN 40 MG TAB PO SCH (08:32)
[2022-01-05] MEDS: PANTOPRAZOLE 40 MG/10 ML VIAL IVP SCH (08:32)
[2022-01-05] MEDS: ASCORBIC ACID 500 MG TAB OG-TUBE SCH ×2 (08:32→20:20)
[2022-01-05] MEDS: METOPROLOL TARTRATE 50 MG TAB PO SCH ×2 (08:32→20:21)
[2022-01-05] MEDS: CHLORHEXIDINE GLUCONATE 15 ML CUP MUCOUS MEM SCH ×2 (08:33→20:20)
[2022-01-05 09:04] LABS: Glucose,Whole Blood 178 mg/dL (75-99)
--- NOTE | 2022-01-05 09:31 | P.PN ---
Subjective Progress Note Date: 01/05/22 Principal diagnosis: Coronary artery disease with left main disease. Past medical history significant for hypertension, current ongoing tobacco dependence with mild COPD, daily EtOH use (1 pint per day of liquor), occasional marijuana and cocaine use (UDS was positive for cocaine on admission), hepatitis C, CVA 20 years ago, and solitary kidney. POD #14 coronary artery bypass grafting 3 vessels, left internal mammary artery to the left anterior descending artery, a reverse saphenous vein graft to the obtuse marginal coronary artery, a reverse saphenous vein graft to the posterior descending coronary artery, endoscopic harvesting of the left greater saphenous vein, ligation of the left atrial appendage using a 35 mm AtriClip, epi-aortic ultrasound and intraoperative transesophageal echocardiogram Postoperative acute blood loss anemia and thrombocytopenia, expected given hemodilution and cardiopulmonary bypass pump. Suspected alcohol/drug withdrawal with thoracoabdominal dyssynchrony breathing pattern, respiratory compromise and stridor requiring reintubation. The patient was seen and examined at her bedside in the intensive care unit today 01/05/2022. She remains sedated with a fentanyl drip and propofol drip, is intubated with mechanical ventilator support with current mechanical ventilator settings assist control 20, TV 375, FiO2 40% and PEEP of 5. Oxygen saturations are 99% on current mechanical ventilator settings. ABG results this morning show a pH of 7.37, pCO2 41, pO2 92, HCO3 24, oxygen saturation 97.0 and base excess -1.2. Her nurses reported that the secretions in the ET tube have decreased over the last 24 hours. The patient does open up her eyes with verbal stimuli and is following some simple commands appropriately. Bedside telemetry is showing sinus bradycardia heart rate 59 BPM. Laboratory results this morning show a WBC count of 15.0, hemoglobin 6.7, hematocrit 22.5, platelets 702, sodium 146, potassium 4.3, chloride 118, CO2 24, BUN 36, creatinine 0.75, calcium 8.9, AST 55 and ALT 70. She remained hemodynamically stable and is currently on no inotropic pressor support. In the last 12 hours her blood sugars have been ranging from 219-272 mg/dL. She has been started on an insulin drip due to her increase in blood sugars. She remains on a dexamethasone 6 mg IVP twice a day which is being managed by pulmonary/critical care medicine. Young cath remains in place with 785 mL of urine output in the last 8 hours. NG tube remains in place with tube feeding at goal rate of 39 mL per hour of vital high-protein wi th automatic water flushes of 200 mL every 4 hours. Fentanyl drip is infusing at 0.5 mcg/kg per hour and propofol drip is infusing at 35 mcg/kg/m. Chest x- ray report reviewed. She has been afebrile the last 24 hours. She remains on cefepime for antibiotic coverage managed by pulmonary/critical care medicine. A sputum culture from 12/29/2021 was positive for Streptococcus pneumoniae, and Corynebacterium striatum. Objective - Vital Signs Vital signs: Vital Signs Temp 97.6 F 01/05/22 08:00 Pulse 66 01/05/22 08:00 Resp 11 L 01/05/22 08:00 BP 158/83 01/05/22 08:00 Pulse Ox 99 01/05/22 08:00 FiO2 40 01/05/22 08:00 Intake & Output 01/04/22 01/05/22 01/05/22 18:59 06:59 18:59 Intake Total 5776.375 3493.425 241.647 Output Total 740 1095 150 Balance 405.932 599.425 91.647 Weight 76 kg 71.5 kg Intake: IV 240 396 46 0.9 @ 20 240 260 40 Cefepime 2 gm In Sodium 100 Chloride 0.9% 100 ml @ 25 mls/hr IVPB Q8H [facility] Rx#: [id number] Pressure Bag 36 6 Intake, IV Titration 437.932 191.425 117.647 Amount Cefepime 2 gm In Sodium 300 100 Chloride 0.9% 100 ml @ 25 mls/hr IVPB Q8H [facility] Rx#: [id number] fentaNYL (PF). 1,000 mcg 91.425 In Sodium Chloride 0.9% 80 ml @ 0.5 MCG/KG/HR 3. 64 mls/hr IV .Q24H [facility] Rx #:[id number] propofoL 1,000 mg In 137.932 117.647 Empty Bag 1 bag @ 5 MCG/ KG/MIN 2.139 mls/hr IV . Q24H [facility] Rx#:[id number] Tube Feeding 468 507 78 Other 600 Output: Urine 740 1095 150 Other: Voiding Method Indwelling Catheter Indwelling Catheter Indwelling Catheter ABP, PAP, CO, CI - Last Documented Arterial Blood Pressure 110/107 Pulmonary Artery Pressure 34/8 Cardiac Output 4.8 Cardiac Index 2.7 - Exam CONSTITUTIONAL: Currently laying in bed in the intensive care unit. She is sedated with fentanyl and propofol drips, remains intubated with mechanical ventilator support. RESPIRATORY: Lungs sounds diminished throughout bilaterally. Respirations are symmetrical, and nonlabored with mechanical ventilator support. Current mechanical ventilator settings are assist control 20, TV 375, FiO2 40% and a PEEP of 5. Oxygen saturation are 99 % on current mechanical ventilator settings. ET tube in place at 22 cm at the lip. CARDIOVASCULAR: S1, S2 present. Regular rate and bradycardic rhythm, sinus bradycardia on telemetry, heart rate 59 BPM. Sternum stable. Palpable peripheral pulses bilaterally. No edema present. No calf pain or tenderness noted. Heart hugger, antiembolism stockings, SCDs present. GASTROINTESTINAL: Abdomen soft, nontender, nondistended. Active bowel sounds present 4 quadrants. No guarding or rigidity. NG tube in place with vital high-protein to feeding infusing at 39 mL per hour with automatic water flushes 200 mL every 4 hours. Bowel movement 01/02/2022. GENITOURINARY: Young catheter in place for accurate I's and O's. Urine output 785 mL in the last 8 hours. INTEGUMENTARY: Skin is warm and dry with evidence of clubbing or cyanosis. Midline sternal chest incision well approximated and covered with dry intact dressing. Left lower extremity EVH site well approximated without redness or drainage. NEUROLOGIC: Currently sedated on fentanyl and Diprivan drips, unable to accurately assess. Musculoskeletal: Moves all 4 extremities, equal strength bilaterally. INVASIVE LINES AND TUBES: A/V epicardial pacemaker wires present, and grounded. Left subclavian triple-lumen catheter and right brachial arterial line in place and functioning. - Allied health notes Allied health notes reviewed: nursing - Labs CBC & Chem 7: 01/05/22 04:40 01/05/22 04:40 Labs: Abnormal Lab Results - Last 24 Hours (Table) 01/04/22 01/04/22 01/04/22 Range/Units 11:48 17:58 23:50 WBC (3.8-10.6) k/uL RBC (3.80-5.40) m/uL Hgb (11.4-16.0) gm/dL Hct (34.0-46.0) % MCHC (31.0-37.0) g/dL RDW (11.5-15.5) % Plt Count (150-450) k/uL Neutrophils # (Manual) (1.3-7.7) k/uL Monocytes # (Manual) (0-1.0) k/uL Metamyelocytes # (Man) (0) k/uL Nucleated RBCs (0-0) /100 WBC ABG Total CO2 (19-24) mmol/L Sodium (137-145) mmol/L Chloride (98-107) mmol/L BUN (7-17) mg/dL Glucose (74-99) mg/dL POC Glucose (mg/dL) 259 H 272 H 249 H (75-99) mg/dL AST (14-36) U/L ALT (4-34) U/L Total Protein (6.3-8.2) g/dL Albumin (3.5-5.0) g/dL 01/05/22 01/05/22 01/05/22 Range/Units 04:40 04:40 05:40 WBC 15.0 H (3.8-10.6) k/uL RBC 2.58 L (3.80-5.40) m/uL Hgb 6.7 L* (11.4-16.0) gm/dL Hct 22.5 L (34.0-46.0) % MCHC 29.8 L (31.0-37.0) g/dL RDW 18.4 H (11.5-15.5) % Plt Count 702 H (150-450) k/uL Neutrophils # (Manual) 12.40 H (1.3-7.7) k/uL Monocytes # (Manual) 1.05 H (0-1.0) k/uL Metamyelocytes # (Man) 0.30 H (0) k/uL Nucleated RBCs 5 H (0-0) /100 WBC ABG Total CO2 (19-24) mmol/L Sodium 146 H (137-145) mmol/L Chloride 118 H (98-107) mmol/L BUN 36 H (7-17) mg/dL Glucose 229 H (74-99) mg/dL POC Glucose (mg/dL) 219 H (75-99) mg/dL AST 55 H (14-36) U/L ALT 70 H (4-34) U/L Total Protein 6.1 L (6.3-8.2) g/dL Albumin 2.8 L (3.5-5.0) g/dL 01/05/22 01/05/22 01/05/22 Range/Units 06:10 07:10 08:13 WBC (3.8-10.6) k/uL RBC (3.80-5.40) m/uL Hgb (11.4-16.0) gm/dL Hct (34.0-46.0) % MCHC (31.0-37.0) g/dL RDW (11.5-15.5) % Plt Count (150-450) k/uL Neutrophils # (Manual) (1.3-7.7) k/uL Monocytes # (Manual) (0-1.0) k/uL Metamyelocytes # (Man) (0) k/uL Nucleated RBCs (0-0) /100 WBC ABG Total CO2 25 H (19-24) mmol/L Sodium (137-145) mmol/L Chloride (98-107) mmol/L BUN (7-17) mg/dL Glucose (74-99) mg/dL POC Glucose (mg/dL) 229 H 208 H (75-99) mg/dL AST (14-36) U/L ALT (4-34) U/L Total Protein (6.3-8.2) g/dL Albumin (3.5-5.0) g/dL - Imaging and Cardiology Chest x-ray: report reviewed, image reviewed Assessment and Plan Assessment: 1. Coronary artery disease with left main disease, status post three-vessel CABG 2. History of hypertension 3. Current ongoing tobacco dependence 4. Mild COPD, preoperative FEV1 was 73% of predicted 5. Daily EtOH use (1 pint per day of liquor) 6. Occasional marijuana and cocaine use (UDS was positive for cocaine on admission) 7. Hepatitis C 8. CVA 20 years ago 9. Solitary kidney. 10. Postoperative acute blood loss anemia and thrombocytopenia, expected 11. Suspected alcohol/drug withdrawal with thoracoabdominal dyssynchrony breathing pattern, respiratory compromise and stridor requiring reintubation 12. Leukocytosis, likely secondary to the dexamethasone, remains afebrile Plan: 1. Continue aspirin, statin, Plavix, Norvasc, and beta briaan. We will decrease her metoprolol tartrate to 50 mg per NG tube twice a day with hold parameters. 2. Mechanical ventilator, bronchodilators per pulmonary/critical care medicine. Mechanical ventilator weaning per pulmonary/critical care medicine recommendations. 3. Fentanyl and Diprivan drip management per pulmonary/critical care medicine. 4. Will monitor daily labs and chest x-rays. Electrolyte replacement per protocol. 5. GI/DVT prophylaxis. 6. Pain control current medication regimen. Discontinue Dilaudid. 7. CIWA protocol. Continue Seroquel 100 mg per NG tube twice a day. 8. Insulin management per primary care services. Patient is not diabetic, preoperative hemoglobin A1c 5.4%. The patient was started on an insulin drip for tighter blood sugar control, as her blood sugars have been ranging 219-272 mg/dL in the last 12 hours. 9. Patient counseled preoperatively and will continue to be counseled t hroughout her stay that she should refrain from smoking, drinking, using illicit drugs. 10. Keep Young catheter in place for accurate I's and O's, continue to record strict and accurate intake and output. Daily weights. 11. No diuresis today as her sodium is still 146 and her BUN is 36. Continue free water flushes on the tube feedings 200 mL every 4 hours. 12. Keep atrial and ventricular epicardial pacemaker wires in place and grounded. 13. Keep NG tube in place with vital high-protein to feedings infusing per dietitian recommendations. 14. Cefepime IV antibiotic management per pulmonary/critical care service recommendations. Sputum culture from 12/29/2021 showed Streptococcus pneumoniae and Corynebacterium striatum. 15. Decadron 6 mg IVP twice a day management by pulmonary critical care medicine. 16. More recommendations to follow based on patient's clinical course. Time with Patient: Greater than 30
[2022-01-05 09:55] LABS: Glucose,Whole Blood 195 mg/dL (75-99)
[2022-01-05 11:14] LABS: Glucose,Whole Blood 214 mg/dL (75-99)
[2022-01-05] MEDS ORDERED: LIDOCAINE 1% INJ 10MG/ML (5 ML VIAL-PF) SQ ONE (11:50)
--- NOTE | 2022-01-05 12:02 | P.PN ---
Subjective Progress Note Date: 01/05/22 Principal diagnosis: POD # 14 coronary artery bypass grafting 3 vessels, left internal mammary artery to the left anterior descending artery, a reverse saphenous vein graft to the obtuse marginal coronary artery, a reverse saphenous vein graft to the posterior descending coronary artery, endoscopic harvesting of the left greater saphenous vein, ligation of the left atrial appendage using a 35 mm AtriClip, epi-aortic ultrasound and intraoperative transesophageal echocardiogram On 01/03/2022 patient seen in follow-up in intensive care unit, yesterday patient was again weaned and extubated from the mechanical ventilator however she again quickly field, partially because of Stridor, her pulmonary secretions were reportedly improved at the time. Patient was reintubated and placed on mechanical ventilator, this morning she is on assist-control mode of ventilation with a rate of 20, tidal vital 375, FiO2 40% and PEEP of 5, this morning's blood gas shows pO2 of 150, pCO2 43, pH of 7.38. Chest x-ray showing bilateral small pleural effusions, and left lower lung pulmonary atelectasis. Per respiratory therapy patient continues to have quite significant amount of secretions from the ET tube, although the amount and color seem to have improved some. Patient is currently sedated on Diprivan at 35 mics per kilo per minute, and she is waking up and following simple commands, she is on fentanyl infusion at 0.5 mics per kilo per minute, and 0.9 normal saline at a rate of 20 ML per hour, she is tolerating tube feedings with vital HP at a rate of 50 with a goal of 50. She is in sinus mechanism at a rate of 98 BPM. Her [place] catheter has been discontinued. Mediastinal and right and left pleural chest tubes have been discontinued a few days ago. Patient continues on cefepime, and vancomycin. Sputum culture was positive for Streptococcus pneumonia and Corynebacterium stratum, and patient has been on cefepime and vancomycin. Patient has been receiving Lasix on a daily basis, and she was started on maintenance dose of IV Lasix 40 mg every 8 hours, and IV steroids with Solu-Medrol 60 mg every 6 hours. Patient underwent left-sided thoracentesis yesterday would removal of 250 mL of turbid blood-tinged fluid. The rest of today's lab 7 reviewed, showing white blood cell count of 12.9, hemoglobin is 6.6, platelet count of 617. Chloride was 1:15, the rest of the electrolytes were unremarkable, BUN is 26 and creatinine 0.64. Patient is waking up and following simple commands, she has however become aggressive, she is trying to talk to us. She is still producing moderate amount of yellow colored phlegm which is elderly companion in color. She's been afebrile overnight, hold for surgical incisions are clean dry and intact, abdomen is soft, she is tolerating tube feedings. Reevaluated today on01/04/22, patient remains in the ICU, intubated mechanically ventilated. Assist control rate of 20 to follow 375 FiO2 40% PEEP of 5. ABG showed a pO2 of 89 pCO2 of 39 pH of 7.41. Remains on propofol at 35 mcg/kg/m, and she is on fentanyl at 0.5 mcg/kg/h. Patient is not requiring any pressors. She is on vital HP as 59 mL per hour. Her sodium is climbing up, and I'm recommending free water to be given via orogastric tube at 200 mL 4 times a day. And I am planning to switch the Solu-Medrol to Decadron for presumptive stridor postextubation although there is no clear history whether the patient did develop stridor or she had difficulty coping with her secretions at any rate patient was extubated and reintubated 3 times already, and I have a very strong feeling that she will continue to fail extubation, and most likely the patient will require eventually tracheostomy and PEG tube placement. Chest x-ray today showed mostly atelectasis, and possibly cardiomegaly and small bilateral effusions. patient is sedated, but arousable, in spite of being on fentanyl and on propofol. WBC count is 12.8 hemoglobin is 6.5, there is quite a bit of reluc tance from cardiac surgery to transfer the patient. Metabolic profile seems to be relatively unremarkable. Renal profile is normal Reevaluated today on 01/05/22, patient remains in the ICU, intubated and mechanically ventilated. She is on assist control rate of 20, volume 375 FiO2 40% PEEP of 5. ABG showed a pO2 of 92 pCO2 41 pH of 7.37. Patient is on propofol at 15 mcg/kg/m and she is on fentanyl at 0.5 mcg/kg per hour. IV fluid is at KVO. Patient is arousable but remains lethargic as she still requiring sedation. I did give the patient a trial today of pressure support of 8 and CPAP, however apparently off sedation the patient became agitated, she had significant amount of and she pulled out her nasogastric tube. As I recommended that we go back on sedation, and she is not quite ready for weaning mostly because of significant secretions noted by respiratory therapist. Chest x-ray is basically unchanged, continues to show bilateral basilar opacities, patient had small pleural effusions, she had thoracentesis a few days ago by Dr. Padilla, and he was able to remove 250 mL at best. WBC count is 15 hemoglobin is 6.7 basic metabolic profile is relatively unremarkable, continues to have elevated sodium of 146. Objective - Vital Signs Vital signs: Vital Signs Temp 97.6 F 01/05/22 08:00 Pulse 69 01/05/22 10:43 Resp 14 01/05/22 10:00 BP 136/72 01/05/22 10:00 Pulse Ox 97 01/05/22 10:00 FiO2 40 01/05/22 10:29 Intake & Output 01/04/22 01/05/22 01/05/22 18:59 06:59 18:59 Intake Total 0269.169 4276.425 336.343 Output Total 740 1095 250 Balance 405.932 599.425 86.343 Weight 76 kg 71.5 kg Intake: IV 240 396 69 0.9 @ 20 240 260 60 Cefepime 2 gm In Sodium 100 Chloride 0.9% 100 ml @ 25 mls/hr IVPB Q8H [facility] Rx#: [id number] Pressure Bag 36 9 Intake, IV Titration 437.932 191.425 150.343 Amount Cefepime 2 gm In Sodium 300 100 Chloride 0.9% 100 ml @ 25 mls/hr IVPB Q8H [facility] Rx#: [id number] Insulin Regular 100 unit 15.798 In Sodium Chloride 0.9% 100 ml @ Per Protocol IV .Q0M [facility] Rx#:[id number] fentaNYL (PF). 1,000 mcg 91.425 In Sodium Chloride 0.9% 80 ml @ 0.5 MCG/KG/HR 3. 64 mls/hr IV .Q24H [facility] Rx #:[id number] propofoL 1,000 mg In 137.932 134.545 Empty Bag 1 bag @ 5 MCG/ KG/MIN 2.139 mls/hr IV . Q24H [facility] Rx#:[id number] Tube Feeding 468 507 117 Other 600 Output: Urine 740 1095 250 Other: Voiding Method Indwelling Catheter Indwelling Catheter Indwelling Catheter ABP, PAP, CO, CI - Last Documented Arterial Blood Pressure 174/171 Pulmonary Artery Pressure 34/8 Cardiac Output 4.8 Cardiac Index 2.7 - Exam Physical Exam: Revealed 66-year-old female intubated mechanically ventilated sedated but arousable and follows simple instructions. Head: Atraumatic, normocephalic. Endotracheal tube and orogastric tube are intact. HEENT:[Neck is supple.] [No neck masses.] [No thyromegaly.] [No JVD.] Left subclavian triple-lumen catheter is noted. Chest: Symmetrical chest expansion, crackles at the bases no rhonchi and no wheezes. Cardiac Exam: Distant S1 and S2, no S3 gallop. Abdomen: [Soft, nontender, no megaly, no rebound, no guarding, normal bowel sounds.] Extremities: [No clubbing, trace of bipedal edema, no cyanosis.] Right brachial arterial line is noted. Neurological Exam: Grossly intact, patient is arousable and follows simple instructions. But seems to be rather slow and a bit lethargic since she is still on propofol and on fentanyl. Psychiatric: Normal mood affect and seems to have normal mental status. Skin: No rashes. - Labs CBC & Chem 7: 01/05/22 04:40 01/05/22 04:40 Labs: Abnormal Lab Results - Last 24 Hours (Table) 01/04/22 01/04/22 01/05/22 Range/Units 17:58 23:50 04:40 WBC 15.0 H (3.8-10.6) k/uL RBC 2.58 L (3.80-5.40) m/uL Hgb 6.7 L* (11.4-16.0) gm/dL Hct 22.5 L (34.0-46.0) % MCHC 29.8 L (31.0-37.0) g/dL RDW 18.4 H (11.5-15.5) % Plt Count 702 H (150-450) k/uL Neutrophils # (Manual) 12.40 H (1.3-7.7) k/uL Monocytes # (Manual) 1.05 H (0-1.0) k/uL Metamyelocytes # (Man) 0.30 H (0) k/uL Nucleated RBCs 5 H (0-0) /100 WBC ABG Total CO2 (19-24) mmol/L Sodium (137-145) mmol/L Chloride (98-107) mmol/L BUN (7-17) mg/dL Glucose (74-99) mg/dL POC Glucose (mg/dL) 272 H 249 H (75-99) mg/dL AST (14-36) U/L ALT (4-34) U/L Total Protein (6.3-8.2) g/dL Albumin (3.5-5.0) g/dL 01/05/22 01/05/22 01/05/22 Range/Units 04:40 05:40 06:10 WBC (3.8-10.6) k/uL RBC (3.80-5.40) m/uL Hgb (11.4-16.0) gm/dL Hct (34.0-46.0) % MCHC (31.0-37.0) g/dL RDW (11.5-15.5) % Plt Count (150-450) k/uL Neutrophils # (Manual) (1.3-7.7) k/uL Monocytes # (Manual) (0-1.0) k/uL Metamyelocytes # (Man) (0) k/uL Nucleated RBCs (0-0) /100 WBC ABG Total CO2 25 H (19-24) mmol/L Sodium 146 H (137-145) mmol/L Chloride 118 H (98-107) mmol/L BUN 36 H (7-17) mg/dL Glucose 229 H (74-99) mg/dL POC Glucose (mg/dL) 219 H (75-99) mg/dL AST 55 H (14-36) U/L ALT 70 H (4-34) U/L Total Protein 6.1 L (6.3-8.2) g/dL Albumin 2.8 L (3.5-5.0) g/dL 01/05/22 01/05/22 01/05/22 Range/Units 07:10 08:13 09:02 WBC (3.8-10.6) k/uL RBC (3.80-5.40) m/uL Hgb (11.4-16.0) gm/dL Hct (34.0-46.0) % MCHC (31.0-37.0) g/dL RDW (11.5-15.5) % Plt Count (150-450) k/uL Neutrophils # (Manual) (1.3-7.7) k/uL Monocytes # (Manual) (0-1.0) k/uL Metamyelocytes # (Man) (0) k/uL Nucleated RBCs (0-0) /100 WBC ABG Total CO2 (19-24) mmol/L Sodium (137-145) mmol/L Chloride (98-107) mmol/L BUN (7-17) mg/dL Glucose (74-99) mg/dL POC Glucose (mg/dL) 229 H 208 H 178 H (75-99) mg/dL AST (14-36) U/L ALT (4-34) U/L Total Protein (6.3-8.2) g/dL Albumin (3.5-5.0) g/dL 01/05/22 01/05/22 Range/Units 09:53 11:12 WBC (3.8-10.6) k/uL RBC (3.80-5.40) m/uL Hgb (11.4-16.0) gm/dL Hct (34.0-46.0) % MCHC (31.0-37.0) g/dL RDW (11.5-15.5) % Plt Count (150-450) k/uL Neutrophils # (Manual) (1.3-7.7) k/uL Monocytes # (Manual) (0-1.0) k/uL Metamyelocytes # (Man) (0) k/uL Nucleated RBCs (0-0) /100 WBC ABG Total CO2 (19-24) mmol/L Sodium (137-145) mmol/L Chloride (98-107) mmol/L BUN (7-17) mg/dL Glucose (74-99) mg/dL POC Glucose (mg/dL) 195 H 214 H (75-99) mg/dL AST (14-36) U/L ALT (4-34) U/L Total Protein (6.3-8.2) g/dL Albumin (3.5-5.0) g/dL Assessment and Plan Assessment: Impression: Coronary artery disease status post three-vessel CABG, postoperative day #14 Failure to wean and extubate, patient failed weaning 3 times, will give the patient a trial of weaning and extubation, however I'm not too optimistic about successful extubation. Mild COPD, FEV1 is normally 73%. Tobacco dependence syndrome. History of alcoholism. Patient drinks on the average of 1 pint per day of liquor. History of hepatitis C. Status post left-sided thoracentesis on 01/02/22, however no more than 2 50 mL of fluid was drained. Postoperative blood loss anemia, expected history of CVA. History of depression. History of substance abuse including cocaine and alcohol and marijuana. History of nephrectomy. Patient has 1 solitary kidney. Recommendation: Patient failed weaning trial, she had significant secretions hence had to stop the weaning process, and plans placed back on assist control mode of mechanical ventilation. Continue ventilatory support Continue bronchodilators. Continue steroids.Continue antibiotics/cefepime. Continue GI and DVT prophylaxis. Continue nutritional support. Continue iron. Reassess daily for weaning. We will continue to follow. Critical care time is over 30 minutes Time with Patient: Greater than 30
[2022-01-05] MEDS: amLODIPine 10 MG TAB PO SCH (12:14)
[2022-01-05 12:21] LABS: Glucose,Whole Blood 184 mg/dL (75-99)
--- NOTE | 2022-01-05 12:54 | XR ---
EXAMINATION TYPE: XR chest 1V confirm line [facility] DATE OF EXAM: 01/05/2022 COMPARISON: Chest x-ray same date earlier time HISTORY: PICC line placement TECHNIQUE: Single frontal view of the chest is obtained. FINDINGS: There has been interval placement of right-sided PICC line, distal tip is overlying the avila perior vena cava. No other significant interval change. Apices are not included on exam. IMPRESSION: No evident complication status post PICC line placement.
[2022-01-05 13:09] LABS: Glucose,Whole Blood 158 mg/dL (75-99)
[2022-01-05 14:06] LABS: Glucose,Whole Blood 136 mg/dL (75-99)
--- NOTE | 2022-01-05 14:27 | IR ---
EXAMINATION TYPE: IR cvc insert >=5 years DATE OF EXAM: 01/05/2022 COMPARISON: NONE HISTORY: Needs long-term intravenous access for therapy, postop FINDINGS: Maximal barrier technique was utilized. Hand hygiene obtained with soap and water and alco hol-based hand rub. The skin overlying the right basilic vein was localized with ultrasound and noted to be compressible and patent by ultrasound. An ultrasound image was obtained and submitted on [place] ent's chart. Sterile technique utilized with the ultrasound machine. The skin overlying was prepped a nd draped and Lidocaine used for local anesthesia. A skin rajan was made with a scalpel. Access was gained to the vein under direct ultrasound guidance with a 21-gauge needle and a 0.018 inch wire was advanced. Access site was dilated with a peel-away sheath and the catheter tailored to length. Cath eter advanced centrally and a post procedure chest x-ray verified placement with tip at the superior vena cava. Catheter was fixed to the skin and a sterile dressing placed. Hemostasis achieved and th e catheter was aspirated and flushed with sterile saline. The patient remained in stable condition. IMPRESSION: STATUS POST ULTRASOUND GUIDED PICC LINE PLACEMENT, READY FOR USE. THIS PROCEDURE WAS PER FORMED BY THE UNDERSIGNED.
[2022-01-05] MEDS: bisacodyL 10 MG SUPP RECTAL PRN (15:05)
[2022-01-05 15:11] LABS: Glucose,Whole Blood 163 mg/dL (75-99)
[2022-01-05 16:07] LABS: Glucose,Whole Blood 142 mg/dL (70-110)
[2022-01-05 17:10] LABS: Glucose,Whole Blood 125 mg/dL (70-110)
[2022-01-05 18:03] LABS: Glucose,Whole Blood 135 mg/dL (70-110)
[2022-01-05 18:58] LABS: Glucose,Whole Blood 127 mg/dL (70-110)
[2022-01-05 19:49] LABS: Glucose,Whole Blood 129 mg/dL (70-110)
[2022-01-05] MEDS: SENNOSIDES-DOCUSATE SODIUM 1 EACH TAB PO SCH (20:24)
[2022-01-05 20:59] LABS: Glucose,Whole Blood 139 mg/dL (70-110)
[2022-01-05 21:12] LABS: Glucose,Whole Blood 146 mg/dL (70-110)
[2022-01-05 22:18] LABS: Glucose,Whole Blood 146 mg/dL (70-110)
[2022-01-05 22:51] LABS: Glucose,Whole Blood 173 mg/dL (70-110)
[2022-01-06 00:09] LABS: Glucose,Whole Blood 180 mg/dL (70-110)
[2022-01-06] MEDS: HEPARIN SODIUM,PORCINE/PF 5,000 UNIT/0.5 ML SYRINGE SQ SCH ×4 (00:13→23:16)
[2022-01-06 01:00] LABS: Glucose,Whole Blood 165 mg/dL (70-110)
[2022-01-06] MEDS: CEFEPIME 2 GM in SODIUM CHLORIDE 0.9% 100 ML IVPB SCH ×3 (01:12→18:01)
[2022-01-06] MEDS: INSULIN REGULAR 100 UNIT in SODIUM CHLORIDE 0.9% 100 ML IV SCH (01:13)
[2022-01-06 02:07] LABS: Glucose,Whole Blood 158 mg/dL (70-110)
[2022-01-06 03:06] LABS: Glucose,Whole Blood 158 mg/dL (70-110)
[2022-01-06 04:07] LABS: Glucose,Whole Blood 135 mg/dL (70-110)
[2022-01-06 05:03] LABS: Glucose,Whole Blood 148 mg/dL (70-110)
[2022-01-06 05:45] LABS: ABG Base Excess -2.1 mmol/L; ABG HCO3 23 mmol/L (21-25); ABG Oxygen Saturation 92.1 % (94-97); ABG PCO2 39 mmHg (35-45); ABG PH 7.38 (7.35-7.45); ABG PO2 64 mmHg (83-108); ABG TCO2 24 mmol/L (19-24); Allen Test Performed? Yes
[2022-01-06 06:00] LABS: Glucose,Whole Blood 172 mg/dL (70-110)
[2022-01-06] MEDS: THIAMINE 100 MG TAB PO SCH ×2 (06:33→18:01)
[2022-01-06] MEDS: FERROUS SULFATE ORAL ELIXIR 300 MG/5 ML CUP OG-TUBE SCH ×2 (06:33→18:01)
[2022-01-06 06:58] LABS: Glucose,Whole Blood 161 mg/dL (70-110)
[2022-01-06 07:09] LABS: Anisocytosis Slight; HCT 26.3 % (34.0-46.0); HGB 7.8 gm/dL (11.4-16.0); Hypochromasia Marked; MCHC 29.7 g/dL (31.0-37.0); MCV 87.5 fL (80.0-100.0); Mean Platelet Volume 8.7; Platelet Count 723 k/uL (150-450); Poikilocytosis Moderate; RDW 19.3 % (11.5-15.5)
[2022-01-06 07:28] LABS: ALT 91 U/L (4-34); AST 93 U/L (14-36); African American GFR (CKD) >90 (>60 ml/min/1.73 sqM); Albumin 3.1 g/dL (3.5-5.0); Alkaline Phosphatase 66 U/L (38-126); Anion Gap 10 mmol/L; Blood Urea Nitrogen 35 mg/dL (7-17); Calcium 9.3 mg/dL (8.4-10.2); Carbon Dioxide 21 mmol/L (22-30); Chloride 115 mmol/L (98-107); Glucose 163 mg/dL (74-99); Non-African American GFR(CKD) 83 (>60 ml/min/1.73 sqM); Potassium 3.9 mmol/L (3.5-5.1); Sodium 146 mmol/L (137-145); Total Bilirubin 0.5 mg/dL (0.2-1.3); Total Protein 6.9 g/dL (6.3-8.2)
--- NOTE | 2022-01-06 08:30 | XR ---
EXAMINATION TYPE: XR chest 1V portable DATE OF EXAM: 01/06/2022 COMPARISON: X-ray dated 01/05/2022 HISTORY: Postoperative TECHNIQUE: Single frontal view of the chest is obtained. FINDINGS: Difficult assessment for the tip of the endotracheal tube due to overlying shadows. Unchanged positio n of the NG tube and the right-sided PICC line. Questionable increased density in the right lower lung zone. Unchanged cardiomediastinal silhouette. Heterogeneity superimposed on the medial aspect of the left clavicle, please correlate clinically. IMPRESSION: As above.
[2022-01-06] MEDS: IPRATROPIUM-ALBUTEROL 3 ML NEB INHALATION SCH ×4 (08:39→20:12)
[2022-01-06] MEDS: CHLORHEXIDINE GLUCONATE 15 ML CUP MUCOUS MEM SCH ×2 (08:56→20:27)
[2022-01-06] MEDS: DEXAMETHASONE SOD PHOSPHATE 10 MG/ML 1 ML VIAL IVP SCH ×2 (08:56→20:27)
[2022-01-06] MEDS: PANTOPRAZOLE 40 MG/10 ML VIAL IVP SCH (08:57)
[2022-01-06] MEDS: fentaNYL (PF). 1,000 MCG in SODIUM CHLORIDE 0.9% 80 ML IV SCH (09:05)
[2022-01-06 09:10] LABS: Metamyelocytes % 2 %; Neutrophils % (M) 82 %; Nucleated Red Blood Cells 5 /100 WBC (0-0); Total Cells Counted 200
[2022-01-06 09:11] LABS: Basophils # (M) 0.19 k/uL (0-0.2); Metamyelocytes # (M) 0.38 k/uL (0); Monocytes # (M) 0.77 k/uL (0-1.0); Neutrophils # (M) 15.74 k/uL (1.3-7.7); Polychromasia Present; WBC 19.2 k/uL (3.8-10.6)
[2022-01-06 09:12] LABS: Target Cells Present
--- NOTE | 2022-01-06 09:27 | P.PN ---
Subjective Progress Note Date: 01/06/22 Principal diagnosis: Coronary artery disease with left main disease. Past medical history significant for hypertension, current ongoing tobacco dependence with mild COPD, daily EtOH use (1 pint per day of liquor), occasional marijuana and cocaine use (UDS was positive for cocaine on admission), hepatitis C, CVA 20 years ago, and solitary kidney. POD #15 coronary artery bypass grafting 3 vessels, left internal mammary artery to the left anterior descending artery, a reverse saphenous vein graft to the obtuse marginal coronary artery, a reverse saphenous vein graft to the posterior descending coronary artery, endoscopic harvesting of the left greater saphenous vein, ligation of the left atrial appendage using a 35 mm AtriClip, epi-aortic ultrasound and intraoperative transesophageal echocardiogram Postoperative acute blood loss anemia and thrombocytopenia, expected given hemodilution and cardiopulmonary bypass pump. Suspected alcohol/drug withdrawal with thoracoabdominal dyssynchrony breathing pattern, respiratory compromise and stridor requiring reintubation. The patient was seen and examined at her bedside in the intensive care unit today 01/06/2022. She remains sedated with a fentanyl drip at 0.5 mcg/kg per hour and propofol drip at 35 mcg/kg/m, remains intubated with mechanical ventilator support with current mechanical ventilator settings assist control 20, TV 375, FiO2 40% and PEEP of 5. Oxygen saturations are 99% on current mechanical ventilator settings. ABG results this morning show a pH of 7.38, pCO2 39, pO2 64, HCO3 23, oxygen saturation 92.1 and base excess -2.1. NG tube remains in place with vital high-protein to feeding infusing at goal rate of 39 mL per hour with automatic water flushes of 200 mL every 4 hours. Despite her sedation on board the patient is awake, alert, with some episodes of restlessness, following some simple commands with squeezing her hands and wiggling her toes. Secretions from her ET tube tube and oral secretions have increase within the last 24 hours. Plan is for bedside bronchoscopy today by pulmonary medicine. Laboratory results this morning show a WBC count 19.2, hemoglobin 7.8, hematocrit 26.3, platelets 723, sodium 146, potassium 3.9, chloride 115, CO2 21, BUN 35, creatinine 0.75, glucose 163, AST 93 and ALT 91. Insulin drip remains in place with better controlled blood sugars today ranging from 135 mg/dL to 172 mg/dL. T-max temperature in the last 24 hours has been 98.2F. Young catheter remains in place for accurate I's and O's with 1275 mL of urine output in the last 8 hours. She remains on cefepime for antibiotic coverage for a positive sputum culture showing Streptococcus pneumoniae, and Corynebacterium striatum. Objective - Vital Signs Vital signs: Vital Signs Temp 97.7 F 01/06/22 04:00 Pulse 74 01/06/22 08:54 Resp 20 01/06/22 07:00 BP 150/73 01/06/22 07:00 Pulse Ox 99 01/06/22 07:00 FiO2 40 01/06/22 08:31 Intake & Output 01/05/22 01/06/22 01/06/22 18:59 06:59 18:59 Intake Total 746.364 7892.919 35.436 Output Total 1095 1675 Balance -134.952 253.919 35.436 Weight 71.9 kg Intake: IV 276 340 0.9 @ 20 240 240 Cefepime 2 gm In Sodium 100 Chloride 0.9% 100 ml @ 25 mls/hr IVPB Q8H [facility] Rx#: [id number] Pressure Bag 36 Intake, IV Titration 216.048 320.919 35.436 Amount Insulin Regular 100 unit 15.798 86.196 In Sodium Chloride 0.9% 100 ml @ Per Protocol IV .Q0M [facility] Rx#:[id number] fentaNYL (PF). 1,000 mcg 100 In Sodium Chloride 0.9% 80 ml @ 0.5 MCG/KG/HR 3. 64 mls/hr IV .Q24H [facility] Rx #:[id number] propofoL 1,000 mg In 200.250 134.723 35.436 Empty Bag 1 bag @ 5 MCG/ KG/MIN 2.139 mls/hr IV . Q24H [facility] Rx#:[id number] Tube Feeding 468 468 Other 800 Output: Urine 1095 1675 Other: Voiding Method Indwelling Catheter Indwelling Catheter ABP, PAP, CO, CI - Last Documented Arterial Blood Pressure 174/171 Pulmonary Artery Pressure 34/8 Cardiac Output 4.8 Cardiac Index 2.7 - Exam CONSTITUTIONAL: Currently laying in bed in the intensive care unit. She is sedated with fentanyl and propofol drips, remains intubated with mechanical ventilator support. RESPIRATORY: Lungs sounds diminished throughout bilaterally. Respirations are symmetrical, and nonlabored with mechanical ventilator support. Current mechanical ventilator settings are assist control 20, TV 375, FiO2 40% and a PEEP of 5. Oxygen saturation are 99 % on current mechanical ventilator settings. ET tube in place at 22 cm at the lip. CARDIOVASCULAR: S1, S2 present. Regular rate and rhythm, sinus rhythm on telemetry, heart rate 75 BPM. Sternum stable. Palpable peripheral pulses bilaterally. No edema present. No calf pain or tenderness noted. Heart hugger, antiembolism stockings, SCDs present. GASTROINTESTINAL: Abdomen soft, nontender, nondistended. Active bowel sounds present 4 quadrants. No guarding or rigidity. NG tube in place with vital high-protein to feeding infusing at 39 mL per hour with automatic water flushes 200 mL every 4 hours. Bowel movement 01/05/2022. GENITOURINARY: Young catheter in place for accurate I's and O's. Urine output 1275 mL in the last 8 hours. INTEGUMENTARY: Skin is warm and dry with evidence of clubbing or cyanosis. Midline sternal chest incision well approximated and covered with dry intact dressing. Left lower extremity EVH site well approximated without redness or drainage. NEUROLOGIC: Currently sedated on fentanyl and Diprivan drips, unable to accura tely assess. Despite sedation, is awake, following some simple commands. Musculoskeletal: Moves all 4 extremities, equal strength bilaterally. INVASIVE LINES AND TUBES: A/V epicardial pacemaker wires present, and grounded. Right arm PICC line catheter in place and functioning. - Allied health notes Allied health notes reviewed: nursing - Labs CBC & Chem 7: 01/06/22 07:01 01/06/22 07:01 Labs: Abnormal Lab Results - Last 24 Hours (Table) 01/05/22 01/05/22 01/05/22 Range/Units 09:53 11:12 12:08 WBC (3.8-10.6) k/uL RBC (3.80-5.40) m/uL Hgb (11.4-16.0) gm/dL Hct (34.0-46.0) % MCHC (31.0-37.0) g/dL RDW (11.5-15.5) % Plt Count (150-450) k/uL ABG pO2 (83-108) mmHg ABG O2 Saturation (94-97) % Sodium (137-145) mmol/L Chloride (98-107) mmol/L Carbon Dioxide (22-30) mmol/L BUN (7-17) mg/dL Glucose (74-99) mg/dL POC Glucose (mg/dL) 195 H 214 H 184 H (75-99) mg/dL AST (14-36) U/L ALT (4-34) U/L Albumin (3.5-5.0) g/dL 01/05/22 01/05/22 01/05/22 Range/Units 13:08 14:04 15:08 WBC (3.8-10.6) k/uL RBC (3.80-5.40) m/uL Hgb (11.4-16.0) gm/dL Hct (34.0-46.0) % MCHC (31.0-37.0) g/dL RDW (11.5-15.5) % Plt Count (150-450) k/uL ABG pO2 (83-108) mmHg ABG O2 Saturation (94-97) % Sodium (137-145) mmol/L Chloride (98-107) mmol/L Carbon Dioxide (22-30) mmol/L BUN (7-17) mg/dL Glucose (74-99) mg/dL POC Glucose (mg/dL) 158 H 136 H 163 H (75-99) mg/dL AST (14-36) U/L ALT (4-34) U/L Albumin (3.5-5.0) g/dL 01/05/22 01/05/22 01/05/22 Range/Units 15:56 17:08 18:01 WBC (3.8-10.6) k/uL RBC (3.80-5.40) m/uL Hgb (11.4-16.0) gm/dL Hct (34.0-46.0) % MCHC (31.0-37.0) g/dL RDW (11.5-15.5) % Plt Count (150-450) k/uL ABG pO2 (83-108) mmHg ABG O2 Saturation (94-97) % Sodium (137-145) mmol/L Chloride (98-107) mmol/L Carbon Dioxide (22-30) mmol/L BUN (7-17) mg/dL Glucose (74-99) mg/dL POC Glucose (mg/dL) 142 H 125 H 135 H (75-99) mg/dL AST (14-36) U/L ALT (4-34) U/L Albumin (3.5-5.0) g/dL 01/05/22 01/05/22 01/05/22 Range/Units 18:56 19:47 20:57 WBC (3.8-10.6) k/uL RBC (3.80-5.40) m/uL Hgb (11.4-16.0) gm/dL Hct (34.0-46.0) % MCHC (31.0-37.0) g/dL RDW (11.5-15.5) % Plt Count (150-450) k/uL ABG pO2 (83-108) mmHg ABG O2 Saturation (94-97) % Sodium (137-145) mmol/L Chloride (98-107) mmol/L Carbon Dioxide (22-30) mmol/L BUN (7-17) mg/dL Glucose (74-99) mg/dL POC Glucose (mg/dL) 127 H 129 H 139 H (75-99) mg/dL AST (14-36) U/L ALT (4-34) U/L Albumin (3.5-5.0) g/dL 01/05/22 01/05/22 01/05/22 Range/Units 21:10 22:17 22:50 WBC (3.8-10.6) k/uL RBC (3.80-5.40) m/uL Hgb (11.4-16.0) gm/dL Hct (34.0-46.0) % MCHC (31.0-37.0) g/dL RDW (11.5-15.5) % Plt Count (150-450) k/uL ABG pO2 (83-108) mmHg ABG O2 Saturation (94-97) % Sodium (137-145) mmol/L Chloride (98-107) mmol/L Carbon Dioxide (22-30) mmol/L BUN (7-17) mg/dL Glucose (74-99) mg/dL POC Glucose (mg/dL) 146 H 146 H 173 H (75-99) mg/dL AST (14-36) U/L ALT (4-34) U/L Albumin (3.5-5.0) g/dL 01/06/22 01/06/22 01/06/22 Range/Units 00:07 00:58 02:05 WBC (3.8-10.6) k/uL RBC (3.80-5.40) m/uL Hgb (11.4-16.0) gm/dL Hct (34.0-46.0) % MCHC (31.0-37.0) g/dL RDW (11.5-15.5) % Plt Count (150-450) k/uL ABG pO2 (83-108) mmHg ABG O2 Saturation (94-97) % Sodium (137-145) mmol/L Chloride (98-107) mmol/L Carbon Dioxide (22-30) mmol/L BUN (7-17) mg/dL Glucose (74-99) mg/dL POC Glucose (mg/dL) 180 H 165 H 158 H (75-99) mg/dL AST (14-36) U/L ALT (4-34) U/L Albumin (3.5-5.0) g/dL 01/06/22 01/06/22 01/06/22 Range/Units 03:03 04:06 05:02 WBC (3.8-10.6) k/uL RBC (3.80-5.40) m/uL Hgb (11.4-16.0) gm/dL Hct (34.0-46.0) % MCHC (31.0-37.0) g/dL RDW (11.5-15.5) % Plt Count (150-450) k/uL ABG pO2 (83-108) mmHg ABG O2 Saturation (94-97) % Sodium (137-145) mmol/L Chloride (98-107) mmol/L Carbon Dioxide (22-30) mmol/L BUN (7-17) mg/dL Glucose (74-99) mg/dL POC Glucose (mg/dL) 158 H 135 H 148 H (75-99) mg/dL AST (14-36) U/L ALT (4-34) U/L Albumin (3.5-5.0) g/dL 06/16/22 06/16/22 06/16/22 Range/Units 05:42 05:59 06:56 WBC (3.8-10.6) k/uL RBC (3.80-5.40) m/uL Hgb (11.4-16.0) gm/dL Hct (34.0-46.0) % MCHC (31.0-37.0) g/dL RDW (11.5-15.5) % Plt Count (150-450) k/uL ABG pO2 64 L (83-108) mmHg ABG O2 Saturation 92.1 L (94-97) % Sodium (137-145) mmol/L Chloride (98-107) mmol/L Carbon Dioxide (22-30) mmol/L BUN (7-17) mg/dL Glucose (74-99) mg/dL POC Glucose (mg/dL) 172 H 161 H (75-99) mg/dL AST (14-36) U/L ALT (4-34) U/L Albumin (3.5-5.0) g/dL 01/06/22 01/06/22 Range/Units 07:01 07:01 WBC 20.2 H (3.8-10.6) k/uL RBC 3.00 L (3.80-5.40) m/uL Hgb 7.8 L (11.4-16.0) gm/dL Hct 26.3 L (34.0-46.0) % MCHC 29.7 L (31.0-37.0) g/dL RDW 19.3 H (11.5-15.5) % Plt Count 723 H (150-450) k/uL ABG pO2 (83-108) mmHg ABG O2 Saturation (94-97) % Sodium 146 H (137-145) mmol/L Chloride 115 H (98-107) mmol/L Carbon Dioxide 21 L (22-30) mmol/L BUN 35 H (7-17) mg/dL Glucose 163 H (74-99) mg/dL POC Glucose (mg/dL) (75-99) mg/dL AST 93 H (14-36) U/L ALT 91 H (4-34) U/L Albumin 3.1 L (3.5-5.0) g/dL - Imaging and Cardiology Chest x-ray: report reviewed, image reviewed Assessment and Plan Assessment: 1. Coronary artery disease with left main disease, status post three-vessel CABG 2. History of hypertension 3. Current ongoing tobacco dependence 4. Mild COPD, preoperative FEV1 was 73% of predicted 5. Daily EtOH use (1 pint per day of liquor) 6. Occasional marijuana and cocaine use (UDS was positive for cocaine on admission) 7. Hepatitis C 8. CVA 20 years ago 9. Solitary kidney. 10. Postoperative acute blood loss anemia and thrombocytopenia, expected 11. Suspected alcohol/drug withdrawal with thoracoabdominal dyssynchrony breathing pattern, respiratory compromise and stridor requiring reintubation 12. Leukocytosis, likely secondary to the dexamethasone, remains afebrile Plan: 1. Continue aspirin, statin, Plavix, Norvasc, and beta briana. We will increase metoprolol tartrate as tolerated. 2. Mechanical ventilator, bronchodilators per pulmonary/critical care medicine. Mechanical ventilator weaning per pulmonary/critical care medicine recommendations. Plan for bronchoscopy today by pulmonary/critical care medicine. 3. Fentanyl and Diprivan drip management per pulmonary/critical care medicine. 4. Will monitor daily labs and chest x-rays. Electrolyte replacement per protocol. 5. GI/DVT prophylaxis. 6. Pain control current medication regimen. 7. CIWA protocol. Continue Seroquel 100 mg per NG tube twice a day. 8. Insulin management per primary care services. Patient is not diabetic, preoperative hemoglobin A1c 5.4%. Continue insulin drip for tighter blood sugar control while on corticosteroids. 9. Patient counseled preoperatively and will continue to be counseled throughout her stay that she should refrain from smoking, drinking, using illicit drugs. 10. Keep Young catheter in place for accurate I's and O's, continue to record strict and accurate intake and output. Daily weights. 11. No diuresis today as her sodium is still 146 and her BUN is 35. Continue free water flushes on the tube feedings 200 mL every 4 hours. 12. Keep atrial and ventricular epicardial pacemaker wires in place and groun ded. 13. Keep NG tube in place with vital high-protein to feedings infusing per dietitian recommendations. 14. Cefepime IV antibiotic management per pulmonary/critical care service recommendations. Sputum culture from 12/29/2021 showed Streptococcus pneumoniae and Corynebacterium striatum. 15. Decadron 6 mg IVP twice a day management by pulmonary critical care medicine. 16. More recommendations to follow based on patient's clinical course. Time with Patient: Greater than 30
[2022-01-06 09:48] LABS: Glucose,Whole Blood 79 mg/dL (70-110)
[2022-01-06 11:09] LABS: Glucose,Whole Blood 93 mg/dL (70-110)
[2022-01-06] MEDS: MULTIVITAMINS, THERA 1 EACH TAB PO SCH (11:17)
[2022-01-06] MEDS: METOPROLOL TARTRATE 50 MG TAB PO SCH ×2 (11:17→20:27)
[2022-01-06] MEDS: ATORVASTATIN 40 MG TAB PO SCH (11:17)
[2022-01-06] MEDS: ASCORBIC ACID 500 MG TAB OG-TUBE SCH ×2 (11:17→20:27)
[2022-01-06] MEDS: FLUoxetine HCL 20 MG CAP PO SCH (11:17)
[2022-01-06] MEDS: CLOPIDOGREL 75 MG TAB PO SCH (11:17)
[2022-01-06] MEDS: ASPIRIN 81 MG PO SCH (11:17)
[2022-01-06] MEDS: QUEtiapine 100 MG TAB PO SCH ×2 (11:18→20:26)
[2022-01-06] MEDS: ACETYLCYSTEINE 800 MG/4 ML VIAL INHALATION SCH ×3 (11:25→20:11)
[2022-01-06 12:16] LABS: Glucose,Whole Blood 147 mg/dL (70-110)
[2022-01-06 13:09] LABS: Glucose,Whole Blood 159 mg/dL (70-110)
[2022-01-06 14:11] LABS: Glucose,Whole Blood 179 mg/dL (70-110)
--- NOTE | 2022-01-06 14:18 | P.PN ---
Subjective Progress Note Date: 01/06/22 Principal diagnosis: POD#15 coronary artery bypass grafting 3 vessels, left internal mammary artery to the left anterior descending artery, a reverse saphenous vein graft to the o btuse marginal coronary artery, a reverse saphenous vein graft to the posterior descending coronary artery, endoscopic harvesting of the left greater saphenous vein, ligation of the left atrial appendage using a 35 mm AtriClip, epi-aortic ultrasound and intraoperative transesophageal echocardiogram On 01/03/2022 patient seen in follow-up in intensive care unit, yesterday patient was again weaned and extubated from the mechanical ventilator however she again quickly field, partially because of Stridor, her pulmonary secretions were reportedly improved at the time. Patient was reintubated and placed on mechanical ventilator, this morning she is on assist-control mode of ventilation with a rate of 20, tidal vital 375, FiO2 40% and PEEP of 5, this morning's blood gas shows pO2 of 150, pCO2 43, pH of 7.38. Chest x-ray showing bilateral small pleural effusions, and left lower lung pulmonary atelectasis. Per respiratory therapy patient continues to have quite significant amount of secretions from the ET tube, although the amount and color seem to have improved some. Patient is currently sedated on Diprivan at 35 mics per kilo per minute, and she is waking up and following simple commands, she is on fentanyl infusion at 0.5 mics per kilo per minute, and 0.9 normal saline at a rate of 20 ML per hour, she is tolerating tube feedings with vital HP at a rate of 50 with a goal of 50. She is in sinus mechanism at a rate of 98 BPM. Her [place] catheter has been discontinued. Mediastinal and right and left pleural chest tubes have been discontinued a few days ago. Patient continues on cefepime, and vancomycin. Sputum culture was positive for Streptococcus pneumonia and Corynebacterium stratum, and patient has been on cefepime and vancomycin. Patient has been receiving Lasix on a daily basis, and she was started on maintenance dose of IV Lasix 40 mg every 8 hours, and IV steroids with Solu-Medrol 60 mg every 6 hours. Patient underwent left-sided thoracentesis yesterday would removal of 250 mL of turbid blood-tinged fluid. The rest of today's lab 7 reviewed, showing white blood cell count of 12.9, hemoglobin is 6.6, platelet count of 617. Chloride was 1:15, the rest of the electrolytes were unremarkable, BUN is 26 and creatinine 0.64. Patient is waking up and following simple commands, she has however become aggressive, she is trying to talk to us. She is still producing moderate amount of yellow colored phlegm which is student services rep in color. She's been afebrile overnight, hold for surgical incisions are clean dry and intact, abdomen is soft, she is tolerating tube feedings. Reevaluated today on01/04/22, patient remains in the ICU, intubated mechanically ventilated. Assist control rate of 20 to follow 375 FiO2 40% PEEP of 5. ABG showed a pO2 of 89 pCO2 of 39 pH of 7.41. Remains on propofol at 35 mcg/kg/m, and she is on fentanyl at 0.5 mcg/kg/h. Patient is not requiring any pressors. She is on vital HP as 59 mL per hour. Her sodium is climbing up, and I'm recommending free water to be given via orogastric tube at 200 mL 4 times a day. And I am planning to switch the Solu-Medrol to Decadron for presumptive stridor postextubation although there is no clear history whether the patient did develop stridor or she had difficulty coping with her secretions at any rate patient was extubated and reintubated 3 times already, and I have a very strong feeling that she will continue to fail extubation, and most likely the patient will require eventually tracheostomy and PEG tube placement. Chest x-ray today showed mostly atelectasis, and possibly cardiomegaly and small bilateral effusions. patient is sedated, but arousable, in spite of being on fentanyl and on propofol. WBC count is 12.8 hemoglobin is 6.5, there is quite a bit of reluctance from cardiac surgery to transfer the patient. Metabolic profile seems to be relatively unremarkable. Renal profile is normal Reevaluated today on 01/05/22, patient remains in the ICU, intubated and mechanically ventilated. She is on assist control rate of 20, volume 375 FiO2 40% PEEP of 5. ABG showed a pO2 of 92 pCO2 41 pH of 7.37. Patient is on propofol at 15 mcg/kg/m and she is on fentanyl at 0.5 mcg/kg per hour. IV fluid is at KVO. Patient is arousable but remains lethargic as she still requiring sedation. I did give the patient a trial today of pressure support of 8 and CPAP, however apparently off sedation the patient became agitated, she had significant amount of and she pulled out her nasogastric tube. As I recommended that we go back on sedation, and she is not quite ready for weaning mostly because of significant secretions noted by respiratory therapist. Chest x-ray is basically unchanged, continues to show bilateral basilar opacities, patient had small pleural effusions, she had thoracentesis a few days ago by Dr. Padilla, and he was able to remove 250 mL at best. WBC count is 15 hemoglobin is 6.7 basic metabolic profile is relatively unremarkable, continues to have elevated sodium of 146. Reevaluated today on 01/06/2022 patient remains in the ICU intubated and mechanically ventilated. Her vent settings are basically the same, patient is on assist control rate of 20, volume to 75 FiO2 40%. and PEEP of 5, patient is basically about the same compared to the last few days. Her ABG showed a pO2 of 69 pCO2 40 pH of 7.38. She is on propofol at 60 and fentanyl at 0.5 mcg/kg/h. IV fluids at KVO. Today I recommended bronchoscopy since the patient seems to fail weaning mostly because of secretions, however I didn't examine the patient today, bronchoscopy was done, no evidence of significant secretions noted in the airways. Minimal whitish secretions were suctioned easily, patient did not require lavage of the lungs hence my plan is to place the patient back on a pressure support mode of mechanical ventilation, pressure support of 10 and CPA P, and possibly extubate the patient to BiPAP later today. Chest x-ray has shown improvement in her bilateral opacities and pleural effusions hence I believe this is a window to consider weaning on this patient Objective - Vital Signs Vital signs: Vital Signs Temp 98.4 F 01/06/22 12:00 Pulse 65 01/06/22 13:00 Resp 16 01/06/22 13:00 BP 159/93 01/06/22 13:00 Pulse Ox 99 01/06/22 13:00 FiO2 40 01/06/22 13:00 Intake & Output 01/05/22 01/06/22 01/06/22 18:59 06:59 18:59 Intake Total 182.781 9373.919 264.547 Output Total 1095 1675 705 Balance -134.952 253.919 -440.453 Weight 71.9 kg Intake: IV 276 340 170 0.9 @ 20 240 240 120 Cefepime 2 gm In Sodium 100 50 Chloride 0.9% 100 ml @ 25 mls/hr IVPB Q8H YADY Rx#: [id number] Pressure Bag 36 Intake, IV Titration 216.048 320.919 94.547 Amount Insulin Regular 100 unit 15.798 86.196 15.832 In Sodium Chloride 0.9% 100 ml @ Per Protocol IV .Q0M YADY Rx#:[id number] fentaNYL (PF). 1,000 mcg 100 In Sodium Chloride 0.9% 80 ml @ 0.5 MCG/KG/HR 3. 64 mls/hr IV .Q24H [facility] Rx #:[id number] propofoL 1,000 mg In 200.250 134.723 78.715 Empty Bag 1 bag @ 5 MCG/ KG/MIN 2.139 mls/hr IV . Q24H [facility]ADY Rx#:[id number] Tube Feeding 468 468 Other 800 Output: Urine 1095 1675 705 Other: Voiding Method Indwelling Catheter Indwelling Catheter ABP, PAP, CO, CI - Last Documented Arterial Blood Pressure 174/171 Pulmonary Artery Pressure 34/8 Cardiac Output 4.8 Cardiac Index 2.7 - Exam Physical Exam: Revealed 66-year-old female intubated mechanically ventilated sedated but arousable and follows simple instructions. Head: Atraumatic, normocephalic. Endotracheal tube and orogastric tube are intact. HEENT:[Neck is supple.] [No neck masses.] [No thyromegaly.] [No JVD.] Left subclavian triple-lumen catheter is noted. Chest: Symmetrical chest expansion, crackles at the bases no rhonchi and no wheezes. Cardiac Exam: Distant S1 and S2, no S3 gallop. Abdomen: [Soft, nontender, no megaly, no rebound, no guarding, normal bowel sounds.] Extremities: [No clubbing, trace of bipedal edema, no cyanosis.] Right brachial arterial line is noted. Neurological Exam: Grossly intact, patient is arousable and follows simple instructions. Psychiatric: Normal mood affect and seems to have normal mental status. Skin: No rashes. - Labs CBC & Chem 7: 01/06/22 07:01 01/06/22 07:01 Labs: Abnormal Lab Results - Last 24 Hours (Table) 01/05/22 01/05/22 01/05/22 Range/Units 15:08 15:56 17:08 WBC (3.8-10.6) k/uL RBC (3.80-5.40) m/uL Hgb (11.4-16.0) gm/dL Hct (34.0-46.0) % MCHC (31.0-37.0) g/dL RDW (11.5-15.5) % Plt Count (150-450) k/uL Neutrophils # (Manual) (1.3-7.7) k/uL Metamyelocytes # (Man) (0) k/uL Nucleated RBCs (0-0) /100 WBC ABG pO2 (83-108) mmHg ABG O2 Saturation (94-97) % Sodium (137-145) mmol/L Chloride (98-107) mmol/L Carbon Dioxide (22-30) mmol/L BUN (7-17) mg/dL Glucose (74-99) mg/dL POC Glucose (mg/dL) 163 H 142 H 125 H (75-99) mg/dL AST (14-36) U/L ALT (4-34) U/L Albumin (3.5-5.0) g/dL 01/05/22 01/05/22 01/05/22 Range/Units 18:01 18:56 19:47 WBC (3.8-10.6) k/uL RBC (3.80-5.40) m/uL Hgb (11.4-16.0) gm/dL Hct (34.0-46.0) % MCHC (31.0-37.0) g/dL RDW (11.5-15.5) % Plt Count (150-450) k/uL Neutrophils # (Manual) (1.3-7.7) k/uL Metamyelocytes # (Man) (0) k/uL Nucleated RBCs (0-0) /100 WBC ABG pO2 (83-108) mmHg ABG O2 Saturation (94-97) % Sodium (137-145) mmol/L Chloride (98-107) mmol/L Carbon Dioxide (22-30) mmol/L BUN (7-17) mg/dL Glucose (74-99) mg/dL POC Glucose (mg/dL) 135 H 127 H 129 H (75-99) mg/dL AST (14-36) U/L ALT (4-34) U/L Albumin (3.5-5.0) g/dL 01/05/22 01/05/22 01/05/22 Range/Units 20:57 21:10 22:17 WBC (3.8-10.6) k/uL RBC (3.80-5.40) m/uL Hgb (11.4-16.0) gm/dL Hct (34.0-46.0) % MCHC (31.0-37.0) g/dL RDW (11.5-15.5) % Plt Count (150-450) k/uL Neutrophils # (Manual) (1.3-7.7) k/uL Metamyelocytes # (Man) (0) k/uL Nucleated RBCs (0-0) /100 WBC ABG pO2 (83-108) mmHg ABG O2 Saturation (94-97) % Sodium (137-145) mmol/L Chloride (98-107) mmol/L Carbon Dioxide (22-30) mmol/L BUN (7-17) mg/dL Glucose (74-99) mg/dL POC Glucose (mg/dL) 139 H 146 H 146 H (75-99) mg/dL AST (14-36) U/L ALT (4-34) U/L Albumin (3.5-5.0) g/dL 01/05/22 01/06/22 01/06/22 Range/Units 22:50 00:07 00:58 WBC (3.8-10.6) k/uL RBC (3.80-5.40) m/uL Hgb (11.4-16.0) gm/dL Hct (34.0-46.0) % MCHC (31.0-37.0) g/dL RDW (11.5-15.5) % Plt Count (150-450) k/uL Neutrophils # (Manual) (1.3-7.7) k/uL Metamyelocytes # (Man) (0) k/uL Nucleated RBCs (0-0) /100 WBC ABG pO2 (83-108) mmHg ABG O2 Saturation (94-97) % Sodium (137-145) mmol/L Chloride (98-107) mmol/L Carbon Dioxide (22-30) mmol/L BUN (7-17) mg/dL Glucose (74-99) mg/dL POC Glucose (mg/dL) 173 H 180 H 165 H (75-99) mg/dL AST (14-36) U/L ALT (4-34) U/L Albumin (3.5-5.0) g/dL 01/06/22 01/06/22 01/06/22 Range/Units 02:05 03:03 04:06 WBC (3.8-10.6) k/uL RBC (3.80-5.40) m/uL Hgb (11.4-16.0) gm/dL Hct (34.0-46.0) % MCHC (31.0-37.0) g/dL RDW (11.5-15.5) % Plt Count (150-450) k/uL Neutrophils # (Manual) (1.3-7.7) k/uL Metamyelocytes # (Man) (0) k/uL Nucleated RBCs (0-0) /100 WBC ABG pO2 (83-108) mmHg ABG O2 Saturation (94-97) % Sodium (137-145) mmol/L Chloride (98-107) mmol/L Carbon Dioxide (22-30) mmol/L BUN (7-17) mg/dL Glucose (74-99) mg/dL POC Glucose (mg/dL) 158 H 158 H 135 H (75-99) mg/dL AST (14-36) U/L ALT (4-34) U/L Albumin (3.5-5.0) g/dL 01/06/22 01/06/22 01/06/22 Range/Units 05:02 05:42 05:59 WBC (3.8-10.6) k/uL RBC (3.80-5.40) m/uL Hgb (11.4-16.0) gm/dL Hct (34.0-46.0) % MCHC (31.0-37.0) g/dL RDW (11.5-15.5) % Plt Count (150-450) k/uL Neutrophils # (Manual) (1.3-7.7) k/uL Metamyelocytes # (Man) (0) k/uL Nucleated RBCs (0-0) /100 WBC ABG pO2 64 L (83-108) mmHg ABG O2 Saturation 92.1 L (94-97) % Sodium (137-145) mmol/L Chloride (98-107) mmol/L Carbon Dioxide (22-30) mmol/L BUN (7-17) mg/dL Glucose (74-99) mg/dL POC Glucose (mg/dL) 148 H 172 H (75-99) mg/dL AST (14-36) U/L ALT (4-34) U/L Albumin (3.5-5.0) g/dL 01/06/22 01/06/22 01/06/22 Range/Units 06:56 07:01 07:01 WBC 19.2 H (3.8-10.6) k/uL RBC 3.00 L (3.80-5.40) m/uL Hgb 7.8 L (11.4-16.0) gm/dL Hct 26.3 L (34.0-46.0) % MCHC 29.7 L (31.0-37.0) g/dL RDW 19.3 H (11.5-15.5) % Plt Count 723 H (150-450) k/uL Neutrophils # (Manual) 15.74 H (1.3-7.7) k/uL Metamyelocytes # (Man) 0.38 H (0) k/uL Nucleated RBCs 5 H (0-0) /100 WBC ABG pO2 (83-108) mmHg ABG O2 Saturation (94-97) % Sodium 146 H (137-145) mmol/L Chloride 115 H (98-107) mmol/L Carbon Dioxide 21 L (22-30) mmol/L BUN 35 H (7-17) mg/dL Glucose 163 H (74-99) mg/dL POC Glucose (mg/dL) 161 H (75-99) mg/dL AST 93 H (14-36) U/L ALT 91 H (4-34) U/L Albumin 3.1 L (3.5-5.0) g/dL 01/06/22 01/06/22 01/06/22 Range/Units 12:13 13:08 14:09 WBC (3.8-10.6) k/uL RBC (3.80-5.40) m/uL Hgb (11.4-16.0) gm/dL Hct (34.0-46.0) % MCHC (31.0-37.0) g/dL RDW (11.5-15.5) % Plt Count (150-450) k/uL Neutrophils # (Manual) (1.3-7.7) k/uL Metamyelocytes # (Man) (0) k/uL Nucleated RBCs (0-0) /100 WBC ABG pO2 (83-108) mmHg ABG O2 Saturation (94-97) % Sodium (137-145) mmol/L Chloride (98-107) mmol/L Carbon Dioxide (22-30) mmol/L BUN (7-17) mg/dL Glucose (74-99) mg/dL POC Glucose (mg/dL) 147 H 159 H 179 H (75-99) mg/dL AST (14-36) U/L ALT (4-34) U/L Albumin (3.5-5.0) g/dL Assessment and Plan Assessment: Impression: Coronary artery disease status post three-vessel CABG, postoperative day #15 Failure to wean and extubate, patient failed weaning 3 times, will give the nhung wasserman a trial of weaning and extubation, however I'm not too optimistic about successful extubation. Mild COPD, FEV1 is normally 73%. Tobacco dependence syndrome. History of alcoholism. Patient drinks on the average of 1 pint per day of liquor. History of hepatitis C. Status post left-sided thoracentesis on 01/02/22, however no more than 2 50 mL of fluid was drained. Postoperative blood loss anemia, expected history of CVA. History of depression. History of substance abuse including cocaine and alcohol and marijuana. History of nephrectomy. Patient has 1 solitary kidney. Status post bronchoscopy for airways evaluation done on 01/06/2022 prior to weaning and possible extubation Recommendation: Bronchoscopy was done, airways were examined. Continue ventilatory support consider weaning mode of mechanical ventilation neck sebaceous later today. Continue bronchodilators. Continue steroids.Continue antibiotics/cefepime. Continue GI and DVT prophylaxis. Continue nutritional support. Continue iron. Possibly weaning and extubation this afternoon. We will continue to follow. Critical care time is over 30 minutes, not including the time spent on procedures. Time with Patient: Greater than 30
[2022-01-06 15:14] LABS: Glucose,Whole Blood 151 mg/dL (70-110)
[2022-01-06] MEDS: amLODIPine 10 MG TAB PO SCH (16:48)
[2022-01-06 17:30] LABS: Glucose,Whole Blood 114 mg/dL (70-110)
[2022-01-06 18:08] LABS: Glucose,Whole Blood 98 mg/dL (70-110)
[2022-01-06] MEDS: SENNOSIDES-DOCUSATE SODIUM 1 EACH TAB PO SCH (20:26)
--- NOTE | 2022-01-06 20:29 | PCN ---
PROCEDURE NOTE OPERATIVE REPORT: Bronchoscopy and airway. PREOPERATIVE DIAGNOSIS: Failure to wean, and extensive secretions and getting a weaning trial. POSTOPERATIVE DIAGNOSIS: No evidence of extensive secretions noted on visual bronchoscopic evaluation. ANESTHESIA: Patient was on propofol and on a fentanyl drip prior to the procedure. She received 50 mg of propofol bolus. PROCEDURE: Patient was already on mechanical ventilation, an adapter was applied. Placed in a supine position. Bronchoscope was advanced through the endotracheal tube down to the distal end of the endotracheal tube. Thorough examination was done of the henrry, right upper lobe, right middle lobe, right lower lobe, left upper lobe lingula and left lower lobe. Minimal whitish and clear secretions were noted bilaterally scattered in both lungs, these were suctioned, did not require lavage of the airways. Procedure was well tolerated, no complications. Postoperatively, we will try to wean the patient and possibly extubate later today. MMODL / IJN: [id number] /
[2022-01-06 20:37] LABS: Glucose,Whole Blood 137 mg/dL (70-110)
[2022-01-06 22:04] LABS: Glucose,Whole Blood 114 mg/dL (70-110)
[2022-01-06 23:15] LABS: Glucose,Whole Blood 125 mg/dL (70-110)
[2022-01-07 00:17] LABS: Glucose,Whole Blood 143 mg/dL (70-110)
[2022-01-07 01:19] LABS: Glucose,Whole Blood 125 mg/dL (70-110)
[2022-01-07] MEDS: CEFEPIME 2 GM in SODIUM CHLORIDE 0.9% 100 ML IVPB SCH ×3 (01:23→18:24)
[2022-01-07 02:08] LABS: Glucose,Whole Blood 125 mg/dL (70-110)
[2022-01-07] MEDS: fentaNYL (PF). 1,000 MCG in SODIUM CHLORIDE 0.9% 80 ML IV SCH (02:13)
[2022-01-07 03:03] LABS: Glucose,Whole Blood 126 mg/dL (70-110)
[2022-01-07 04:07] LABS: Glucose,Whole Blood 164 mg/dL (70-110)
[2022-01-07 05:16] LABS: Glucose,Whole Blood 178 mg/dL (70-110)
[2022-01-07 06:02] LABS: Glucose,Whole Blood 211 mg/dL (70-110)
[2022-01-07] MEDS: FERROUS SULFATE ORAL ELIXIR 300 MG/5 ML CUP OG-TUBE SCH (06:44)
[2022-01-07] MEDS: THIAMINE 100 MG TAB PO SCH ×2 (06:44→16:53)
[2022-01-07 06:52] LABS: Glucose,Whole Blood 168 mg/dL (70-110)
[2022-01-07] MEDS: METOPROLOL TARTRATE 50 MG TAB PO SCH ×2 (07:46→20:44)
[2022-01-07] MEDS: ATORVASTATIN 40 MG TAB PO SCH (07:46)
[2022-01-07] MEDS: ASCORBIC ACID 500 MG TAB OG-TUBE SCH (07:46)
[2022-01-07] MEDS: PANTOPRAZOLE 40 MG/10 ML VIAL IVP SCH (07:47)
[2022-01-07] MEDS: ASPIRIN 81 MG PO SCH (07:47)
[2022-01-07] MEDS: CLOPIDOGREL 75 MG TAB PO SCH (07:47)
[2022-01-07] MEDS: HEPARIN SODIUM,PORCINE/PF 5,000 UNIT/0.5 ML SYRINGE SQ SCH ×2 (07:47→16:53)
[2022-01-07] MEDS: MULTIVITAMINS, THERA 1 EACH TAB PO SCH (07:47)
[2022-01-07] MEDS: DEXAMETHASONE SOD PHOSPHATE 10 MG/ML 1 ML VIAL IVP SCH (07:47)
[2022-01-07] MEDS: FLUoxetine HCL 20 MG CAP PO SCH (07:47)
[2022-01-07] MEDS: QUEtiapine 100 MG TAB PO SCH ×2 (07:48→20:44)
[2022-01-07] MEDS: CHLORHEXIDINE GLUCONATE 15 ML CUP MUCOUS MEM SCH ×2 (07:48→20:45)
[2022-01-07 08:11] LABS: Glucose,Whole Blood 172 mg/dL (70-110)
[2022-01-07 08:13] LABS: Anisocytosis Moderate; HCT 31.3 % (34.0-46.0); Hypochromasia Marked; MCH 25.9 pg (25.0-35.0); MCHC 29.6 g/dL (31.0-37.0); MCV 87.8 fL (80.0-100.0); Platelet Count 683 k/uL (150-450); Poikilocytosis Moderate; RBC 3.57 m/uL (3.80-5.40)
[2022-01-07 08:16] LABS: African American GFR (CKD) >90 (>60 ml/min/1.73 sqM); Anion Gap 12 mmol/L; Blood Urea Nitrogen 25 mg/dL (7-17); Calcium 9.5 mg/dL (8.4-10.2); Carbon Dioxide 18 mmol/L (22-30); Chloride 108 mmol/L (98-107); Glucose 157 mg/dL (74-99); Magnesium 2.1 mg/dL (1.6-2.3); Non-African American GFR(CKD) >90 (>60 ml/min/1.73 sqM); Potassium 4.2 mmol/L (3.5-5.1); Sodium 138 mmol/L (137-145)
[2022-01-07] MEDS: PANTOPRAZOLE 40 MG TABLET PO SCH (08:16)
[2022-01-07] MEDS: ASCORBIC ACID 500 MG TAB PO SCH ×2 (08:16→20:45)
[2022-01-07 08:19] LABS: HGB 9.3 gm/dL (11.4-16.0)
--- NOTE | 2022-01-07 08:19 | XR ---
EXAMINATION TYPE: XR chest 1V portable DATE OF EXAM: 01/07/2022 Comparison: 01/06/2022 Clinical History: 66-year-old female Postoperative cardiac surgery Findings: Heart mildly enlarged. Low lung volumes. Patchy interstitial densities right greater than left simila r to slightly increased. Right PICC tip mid SVC level. Impression: Mild cardiomegaly and hypoventilatory changes. Correlate for mild pulmonary vascular congestion.
[2022-01-07 08:55] LABS: Band Neutrophils % 1 %; Monocytes # (M) 1.32 k/uL (0-1.0); Neutrophils % (M) 83 %; Nucleated Red Blood Cells 4 /100 WBC (0-0); Total Cells Counted 200; WBC 18.9 k/uL (3.8-10.6)
[2022-01-07 09:07] LABS: Glucose,Whole Blood 161 mg/dL (70-110)
[2022-01-07] MEDS: ACETYLCYSTEINE 800 MG/4 ML VIAL INHALATION SCH (09:13)
[2022-01-07] MEDS: IPRATROPIUM-ALBUTEROL 3 ML NEB INHALATION SCH ×4 (09:24→20:19)
--- NOTE | 2022-01-07 09:48 | P.PN ---
Subjective Progress Note Date: 01/07/22 Principal diagnosis: Coronary artery disease with left main disease. Past medical history significant for hypertension, current ongoing tobacco dependence with mild COPD, daily EtOH use (1 pint per day of liquor), occasional marijuana and cocaine use (UDS was positive for cocaine on admission), hepatitis C, CVA 20 years ago, and solitary kidney. POD #16 coronary artery bypass grafting 3 vessels, left internal mammary artery to the left anterior descending artery, a reverse saphenous vein graft to the obtuse marginal coronary artery, a reverse saphenous vein graft to the posterior descending coronary artery, endoscopic harvesting of the left greater saphenous vein, ligation of the left atrial appendage using a 35 mm AtriClip, epi-aortic ultrasound and intraoperative transesophageal echocardiogram Postoperative acute blood loss anemia and thrombocytopenia, expected given hemodilution and cardiopulmonary bypass pump. Suspected alcohol/drug withdrawal with thoracoabdominal dyssynchrony breathing pattern, respiratory compromise and stridor requiring reintubation. The patient was seen and examined today 01/07/2022 at her bedside in the intensive care unit. The patient underwent a bedside bronchoscopy completed by Dr. Lopez yesterday with minimal secretions seen. Subsequently, the patient was extubated and is currently on 4 L nasal cannula with oxygen saturations 99%. She is achieving 1500 mL on her incentive spirometry with much encouragement. She is awake, alert, oriented 3 and is in no acute apparent distress. She remains hemodynamically stable and is currently on no inotropic or pressor support. Fentanyl drip remains infusing at 0.5 mcg/kg per hour. Bedside telemetry showing normal sinus rhythm heart rate 69 BPM. Young catheter remains for accurate I's and O's with 1.4 L of urine output in the last 8 hours. The patient is tolerating her breakfast and is sitting up to the bedside chair. She denies any complaints of pain, shortness of breath or nausea at this time. Dexamethasone 6 mg IVP twice a day remains in place. She is also on cefepime for antibiotic coverage for positive sputum culture showing Streptococcus pneumoniae, and Corynebacterium striatum. Laboratory results this morning show a WBC count of 18.9, hemoglobin 9.3, hematocrit 31.3, platelets 683, sodium 138, potassium 4.2, chloride 108, CO2 18, BUN 25, creatinine 0.69, glucose 157, calcium 9.5 and magnesium 2.1. The patient remains afebrile in the last 24 damaris rs. Objective - Vital Signs Vital signs: Vital Signs Temp 98.5 F 01/07/22 04:00 Pulse 75 01/07/22 06:00 Resp 10 L 01/07/22 07:00 BP 128/68 01/07/22 07:00 Pulse Ox 97 01/07/22 07:00 FiO2 40 01/07/22 01:30 Intake & Output 01/06/22 01/07/22 01/07/22 18:59 06:59 18:59 Intake Total 381.456 317.968 20 Output Total 1315 2550 75 Balance -933.544 -2232.032 -55 Weight 73 kg Intake: IV 270 240 20 0.9 @ 20 220 240 20 Cefepime 2 gm In Sodium 50 Chloride 0.9% 100 ml @ 25 mls/hr IVPB Q8H [facility] Rx#: [id number] Intake, IV Titration 111.456 77.968 Amount Insulin Regular 100 unit 32.741 15.603 In Sodium Chloride 0.9% 100 ml @ Per Protocol IV .Q0M [facility] Rx#:[id number] fentaNYL (PF). 1,000 mcg 62.365 In Sodium Chloride 0.9% 80 ml @ 0.5 MCG/KG/HR 3. 64 mls/hr IV .Q24H [facility] Rx #:[id number] propofoL 1,000 mg In 78.715 Empty Bag 1 bag @ 5 MCG/ KG/MIN 2.139 mls/hr IV . Q24H [facility] Rx#:[id number] Output: Urine 1315 2550 75 Other: Voiding Method Indwelling Catheter Indwelling Catheter ABP, PAP, CO, CI - Last Documented Arterial Blood Pressure 174/171 Pulmonary Artery Pressure 34/8 Cardiac Output 4.8 Cardiac Index 2.7 - Exam CONSTITUTIONAL: Currently sitting up in bed in the intensive care unit. She is sedated with fentanyl drip, although is awake, alert and oriented 3. RESPIRATORY: Lungs sounds diminished throughout bilaterally. No wheezes, rhonchi or crackles. Respirations are symmetrical, and nonlabored. Oxygen saturation are 99 % on 4 L nasal cannula. She is achieving 1500 mL on her incentive spirometry. CARDIOVASCULAR: S1, S2 present. Regular rate and rhythm, sinus rhythm on telemetry, heart rate 69 BPM. Sternum stable. Palpable peripheral pulses bilaterally. No edema present. No calf pain or tenderness noted. Heart hugger, antiembolism stockings, SCDs present. GASTROINTESTINAL: Abdomen soft, nontender, nondistended. Active bowel sounds present 4 quadrants. No guarding or rigidity. Tolerating diet. Bowel movement on 01/05/2022. GENITOURINARY: Young catheter in place for accurate I's and O's. Urine output 1400 mL in the last 8 hours. INTEGUMENTARY: Skin is warm and dry without evidence of clubbing or cyanosis. Midline sternal chest incision well approximated and covered with dry intact dressing. Left lower extremity EVH site well approximated without redness or drainage. NEUROLOGIC: Awake, alert and oriented 3. Fentanyl drip remains at 0.5 mcg/kg per hour. No focal deficits. INVASIVE LINES AND TUBES: A/V epicardial pacemaker wires present, and grounded. Right arm PICC line catheter in place and functioning. - Allied health notes Allied health notes reviewed: nursing - Labs CBC & Chem 7: 01/07/22 07:28 01/07/22 07:28 Labs: Abnormal Lab Results - Last 24 Hours (Table) 01/06/22 01/06/22 01/06/22 Range/Units 07:01 12:13 13:08 WBC 19.2 H (3.8-10.6) k/uL Neutrophils # (Manual) 15.74 H (1.3-7.7) k/uL Metamyelocytes # (Man) 0.38 H (0) k/uL Nucleated RBCs 5 H (0-0) /100 WBC POC Glucose (mg/dL) 147 H 159 H (70-110) mg/dL 01/06/22 01/06/22 01/06/22 Range/Units 14:09 15:13 17:29 WBC (3.8-10.6) k/uL Neutrophils # (Manual) (1.3-7.7) k/uL Metamyelocytes # (Man) (0) k/uL Nucleated RBCs (0-0) /100 WBC POC Glucose (mg/dL) 179 H 151 H 114 H (70-110) mg/dL 01/06/22 01/06/22 01/06/22 Range/Units 20:35 22:03 23:14 WBC (3.8-10.6) k/uL Neutrophils # (Manual) (1.3-7.7) k/uL Metamyelocytes # (Man) (0) k/uL Nucleated RBCs (0-0) /100 WBC POC Glucose (mg/dL) 137 H 114 H 125 H (70-110) mg/dL 01/07/22 01/07/22 01/07/22 Range/Units 00:16 01:17 02:07 WBC (3.8-10.6) k/uL Neutrophils # (Manual) (1.3-7.7) k/uL Metamyelocytes # (Man) (0) k/uL Nucleated RBCs (0-0) /100 WBC POC Glucose (mg/dL) 143 H 125 H 125 H (70-110) mg/dL 01/07/22 01/07/22 01/07/22 Range/Units 03:01 04:05 05:14 WBC (3.8-10.6) k/uL Neutrophils # (Manual) (1.3-7.7) k/uL Metamyelocytes # (Man) (0) k/uL Nucleated RBCs (0-0) /100 WBC POC Glucose (mg/dL) 126 H 164 H 178 H (70-110) mg/dL 01/07/22 01/07/22 Range/Units 06:00 06:51 WBC (3.8-10.6) k/uL Neutrophils # (Manual) (1.3-7.7) k/uL Metamyelocytes # (Man) (0) k/uL Nucleated RBCs (0-0) /100 WBC POC Glucose (mg/dL) 211 H 168 H (70-110) mg/dL - Imaging and Cardiology Chest x-ray: report reviewed, image reviewed Assessment and Plan Assessment: 1. Coronary artery disease with left main disease, status post three-vessel CABG 2. History of hypertension 3. Current ongoing tobacco dependence 4. Mild COPD, preoperative FEV1 was 73% of predicted 5. Daily EtOH use (1 pint per day of liquor) 6. Occasional marijuana and cocaine use (UDS was positive for cocaine on admission) 7. Hepatitis C 8. CVA 20 years ago 9. Solitary kidney. 10. Postoperative acute blood loss anemia and thrombocytopenia, expected 11. Suspected alcohol/drug withdrawal with thoracoabdominal dyssynchrony breathing pattern, respiratory compromise and stridor requiring reintubation, extubated 01/06/2022 12. Leukocytosis, likely secondary to the dexamethasone, remains afebrile Plan: 1. Continue aspirin, statin, Plavix, Norvasc, and beta briana. We will increase metoprolol tartrate as tolerated. Metoprolol tartrate was increased to 100 mg by mouth twice a day yesterday 01/06/2022. 2. Wean oxygen as tolerated to maintain oxygen saturations greater than or equal to 92%. 3. Fentanyl drip management per pulmonary/critical care medicine. 4. Will monitor daily labs and chest x-rays. Electrolyte replacement per protocol. 5. GI/DVT prophylaxis. 6. Pain control current medication regimen. 7. CIWA protocol. Continue Seroquel 100 mg by mouth twice a day. 8. Insulin management per primary care services. Patient is not diabetic, preoperative hemoglobin A1c 5.4%. Continue insulin drip for tighter blood sugar control while on corticosteroids. 9. Patient counseled preoperatively and will continue to be counseled throughout her stay that she should refrain from smoking, drinking, using illi cit drugs. 10. Keep Young catheter in place for accurate I's and O's, continue to record strict and accurate intake and output. Daily weights. 11. No diuresis today as her sodium is still 146 and her BUN is 35. Continue free water flushes on the tube feedings 200 mL every 4 hours. 12. Keep atrial and ventricular epicardial pacemaker wires in place and grounded. 13. Encourage use of her incentive spirometry 10 times every hour while awake. 14. Cefepime IV antibiotic management per pulmonary/critical care service recommendations. Sputum culture from 12/29/2021 showed Streptococcus pneumoniae and Corynebacterium striatum. 15. Decadron 6 mg IVP twice a day management by pulmonary critical care medicine. 16. Increase activity as tolerated. Out of bed for all meals. Cardiac rehab/PT/OT following. 17. More recommendations to follow based on patient's clinical course. Time with Patient: Greater than 30
[2022-01-07] MEDS ORDERED: HYDROmorphone 1 MG/ML 1 ML SYRINGE IVP PRN (09:59)
[2022-01-07 11:11] LABS: Glucose,Whole Blood 174 mg/dL (70-110)
[2022-01-07] MEDS: amLODIPine 10 MG TAB PO SCH (12:06)
[2022-01-07 13:06] LABS: Glucose,Whole Blood 192 mg/dL (70-110)
--- NOTE | 2022-01-07 13:06 | P.PN ---
Subjective Progress Note Date: 01/07/22 Principal diagnosis: POD#16 coronary artery bypass grafting 3 vessels, left internal mammary artery to the left anterior descending artery, a reverse saphenous vein graft to the o btuse marginal coronary artery, a reverse saphenous vein graft to the posterior descending coronary artery, endoscopic harvesting of the left greater saphenous vein, ligation of the left atrial appendage using a 35 mm AtriClip, epi-aortic ultrasound and intraoperative transesophageal echocardiogram On 01/03/2022 patient seen in follow-up in intensive care unit, yesterday patient was again weaned and extubated from the mechanical ventilator however she again quickly field, partially because of Stridor, her pulmonary secretions were reportedly improved at the time. Patient was reintubated and placed on mechanical ventilator, this morning she is on assist-control mode of ventilation with a rate of 20, tidal vital 375, FiO2 40% and PEEP of 5, this morning's blood gas shows pO2 of 150, pCO2 43, pH of 7.38. Chest x-ray showing bilateral small pleural effusions, and left lower lung pulmonary atelectasis. Per respiratory therapy patient continues to have quite significant amount of secretions from the ET tube, although the amount and color seem to have improved some. Patient is currently sedated on Diprivan at 35 mics per kilo per minute, and she is waking up and following simple commands, she is on fentanyl infusion at 0.5 mics per kilo per minute, and 0.9 normal saline at a rate of 20 ML per hour, she is tolerating tube feedings with vital HP at a rate of 50 with a goal of 50. She is in sinus mechanism at a rate of 98 BPM. Her [place]-Pamela catheter has been discontinued. Mediastinal and right and left pleural chest tubes have been discontinued a few days ago. Patient continues on cefepime, and vancomycin. Sputum culture was positive for Streptococcus pneumonia and Corynebacterium stratum, and patient has been on cefepime and vancomycin. Patient has been receiving Lasix on a daily basis, and she was started on maintenance dose of IV Lasix 40 mg every 8 hours, and IV steroids with Solu-Medrol 60 mg every 6 hours. Patient underwent left-sided thoracentesis yesterday would removal of 250 mL of turbid blood-tinged fluid. The rest of today's lab 7 reviewed, showing white blood cell count of 12.9, hemoglobin is 6.6, platelet count of 617. Chloride was 1:15, the rest of the electrolytes were unremarkable, BUN is 26 and creatinine 0.64. Patient is waking up and following simple commands, she has however become aggressive, she is trying to talk to us. She is still producing moderate amount of yellow colored phlegm which is manager food beverage in color. She's been afebrile overnight, hold for surgical incisions are clean dry and intact, abdomen is soft, she is tolerating tube feedings. Reevaluated today on01/04/22, patient remains in the ICU, intubated mechanically ventilated. Assist control rate of 20 to follow 375 FiO2 40% PEEP of 5. ABG showed a pO2 of 89 pCO2 of 39 pH of 7.41. Remains on propofol at 35 mcg/kg/m, and she is on fentanyl at 0.5 mcg/kg/h. Patient is not requiring any pressors. She is on vital HP as 59 mL per hour. Her sodium is climbing up, and I'm recommending free water to be given via orogastric tube at 200 mL 4 times a day. And I am planning to switch the Solu-Medrol to Decadron for presumptive stridor postextubation although there is no clear history whether the patient did develop stridor or she had difficulty coping with her secretions at any rate patient was extubated and reintubated 3 times already, and I have a very strong feeling that she will continue to fail extubation, and most likely the patient will require eventually tracheostomy and PEG tube placement. Chest x-ray today showed mostly atelectasis, and possibly cardiomegaly and small bilateral effusions. patient is sedated, but arousable, in spite of being on fentanyl and on propofol. WBC count is 12.8 hemoglobin is 6.5, there is quite a bit of reluctance from cardiac surgery to transfer the patient. Metabolic profile seems to be relatively unremarkable. Renal profile is normal Reevaluated today on 01/05/22, patient remains in the ICU, intubated and mechanically ventilated. She is on assist control rate of 20, volume 375 FiO2 40% PEEP of 5. ABG showed a pO2 of 92 pCO2 41 pH of 7.37. Patient is on propofol at 15 mcg/kg/m and she is on fentanyl at 0.5 mcg/kg per hour. IV fluid is at KVO. Patient is arousable but remains lethargic as she still requiring sedation. I did give the patient a trial today of pressure support of 8 and CPAP, however apparently off sedation the patient became agitated, she had significant amount of and she pulled out her nasogastric tube. As I recommended that we go back on sedation, and she is not quite ready for weaning mostly because of significant secretions noted by respiratory therapist. Chest x-ray is basically unchanged, continues to show bilateral basilar opacities, patient had small pleural effusions, she had thoracentesis a few days ago by Dr. Padilla, and he was able to remove 250 mL at best. WBC count is 15 hemoglobin is 6.7 basic metabolic profile is relatively unremarkable, continues to have elevated sodium of 146. Reevaluated today on 01/06/2022 patient remains in the ICU intubated and mechanically ventilated. Her vent settings are basically the same, patient is on assist control rate of 20, volume to 75 FiO2 40%. and PEEP of 5, patient is basically about the same compared to the last few days. Her ABG showed a pO2 of 69 pCO2 40 pH of 7.38. She is on propofol at 60 and fentanyl at 0.5 mcg/kg/h. IV fluids at KVO. Today I recommended bronchoscopy since the patient seems to fail weaning mostly because of secretions, however I didn't examine the patient today, bronchoscopy was done, no evidence of significant secretions noted in the airways. Minimal whitish secretions were suctioned easily, patient did not require lavage of the lungs hence my plan is to place the patient back on a pressure support mode of mechanical ventilation, pressure support of 10 and CPA P, and possibly extubate the patient to BiPAP later today. Chest x-ray has shown improvement in her bilateral opacities and pleural effusions hence I believe this is a window to consider weaning on this patient Reevaluated today on 01/07/2022, patient remains in the ICU, however she was extubated yesterday uneventfully, she was initially extubated to BiPAP, she is now on 4 L nasal cannula, patient is sitting at a bedside chair, still having fentanyl infusion which I have discontinued today, he could receive Dilaudid when necessary for pain or discomfort. Patient will be off Decadron, and she remains on antibiotics, chest x-ray showing significant improvement. And yesterday bronchoscopy was basically unremarkable. No evidence of significant secretions noted during the bronchoscopy. WBC count is 18.9 hemoglobin is 9.3. Basic metabolic profile is normal. Renal profile is normal. Chest x-ray is showing cardiomegaly, and hypoventilatory changes very minimal pulmonary congestion Objective - Vital Signs Vital signs: Vital Signs Temp 98.5 F 01/07/22 04:00 Pulse 65 01/07/22 11:00 Resp 17 01/07/22 11:00 BP 125/72 01/07/22 11:00 Pulse Ox 95 01/07/22 10:00 FiO2 40 01/07/22 01:30 Intake & Output 01/06/22 01/07/22 01/07/22 18:59 06:59 18:59 Intake Total 381.456 317.968 833.791 Output Total 1315 2550 625 Balance -933.544 -2232.032 208.791 Weight 73 kg 73 kg Intake: IV 270 240 200 0.9 @ 20 220 240 100 Cefepime 2 gm In Sodium 50 100 Chloride 0.9% 100 ml @ 25 mls/hr IVPB Q8H [facility] Rx#: [id number] Intake, IV Titration 111.456 77.968 33.791 Amount Insulin Regular 100 unit 32.741 15.603 In Sodium Chloride 0.9% 100 ml @ Per Protocol IV .Q0M [facility] Rx#:[id number] fentaNYL (PF). 1,000 mcg 62.365 33.791 In Sodium Chloride 0.9% 80 ml @ 0.5 MCG/KG/HR 3. 64 mls/hr IV .Q24H [facility] Rx #:[id number] propofoL 1,000 mg In 78.715 Empty Bag 1 bag @ 5 MCG/ KG/MIN 2.139 mls/hr IV . Q24H [facility] Rx#:[id number] Oral 600 Output: Urine 1315 2550 625 Other: Voiding Method Indwelling Catheter Indwelling Catheter Indwelling Catheter ABP, PAP, CO, CI - Last Documented Arterial Blood Pressure 174/171 Pulmonary Artery Pressure 34/8 Cardiac Output 4.8 Cardiac Index 2.7 - Exam Physical Exam: Revealed 66-year-old female sitting at a bedside chair, on 4 L nasal cannula, in no distress. Head: Atraumatic, normocephalic. HEENT:[Neck is supple.] [No neck masses.] [No thyromegaly.] [No JVD.] Chest: Symmetrical chest expansion, diminished breath sounds at the bases no crackles or rhonchi or wheezes Cardiac Exam: Distant S1 and S2, no S3 gallop. Abdomen: [Soft, nontender, no megaly, no rebound, no guarding, normal bowel sounds.] Extremities: [No clubbing, trace of bipedal edema, no cyanosis.] Right brachial arterial line is noted. Neurological Exam: Grossly intact, alert oriented 3, no gross deficits. Psychiatric: Normal mood affect and seems to have normal mental status. Skin: No rashes. - Labs CBC & Chem 7: 01/07/22 07:28 01/07/22 07:28 Labs: Abnormal Lab Results - Last 24 Hours (Table) 01/06/22 01/06/22 01/06/22 Range/Units 13:08 14:09 15:13 WBC (3.8-10.6) k/uL RBC (3.80-5.40) m/uL Hgb (11.4-16.0) gm/dL Hct (34.0-46.0) % MCHC (31.0-37.0) g/dL RDW (11.5-15.5) % Plt Count (150-450) k/uL Neutrophils # (Manual) (1.3-7.7) k/uL Monocytes # (Manual) (0-1.0) k/uL Nucleated RBCs (0-0) /100 WBC Chloride (98-107) mmol/L Carbon Dioxide (22-30) mmol/L BUN (7-17) mg/dL Glucose (74-99) mg/dL POC Glucose (mg/dL) 159 H 179 H 151 H (70-110) mg/dL 01/06/22 01/06/22 01/06/22 Range/Units 17:29 20:35 22:03 WBC (3.8-10.6) k/uL RBC (3.80-5.40) m/uL Hgb (11.4-16.0) gm/dL Hct (34.0-46.0) % MCHC (31.0-37.0) g/dL RDW (11.5-15.5) % Plt Count (150-450) k/uL Neutrophils # (Manual) (1.3-7.7) k/uL Monocytes # (Manual) (0-1.0) k/uL Nucleated RBCs (0-0) /100 WBC Chloride (98-107) mmol/L Carbon Dioxide (22-30) mmol/L BUN (7-17) mg/dL Glucose (74-99) mg/dL POC Glucose (mg/dL) 114 H 137 H 114 H (70-110) mg/dL 01/06/22 01/07/22 01/07/22 Range/Units 23:14 00:16 01:17 WBC (3.8-10.6) k/uL RBC (3.80-5.40) m/uL Hgb (11.4-16.0) gm/dL Hct (34.0-46.0) % MCHC (31.0-37.0) g/dL RDW (11.5-15.5) % Plt Count (150-450) k/uL Neutrophils # (Manual) (1.3-7.7) k/uL Monocytes # (Manual) (0-1.0) k/uL Nucleated RBCs (0-0) /100 WBC Chloride (98-107) mmol/L Carbon Dioxide (22-30) mmol/L BUN (7-17) mg/dL Glucose (74-99) mg/dL POC Glucose (mg/dL) 125 H 143 H 125 H (70-110) mg/dL 01/07/22 01/07/22 01/07/22 Range/Units 02:07 03:01 04:05 WBC (3.8-10.6) k/uL RBC (3.80-5.40) m/uL Hgb (11.4-16.0) gm/dL Hct (34.0-46.0) % MCHC (31.0-37.0) g/dL RDW (11.5-15.5) % Plt Count (150-450) k/uL Neutrophils # (Manual) (1.3-7.7) k/uL Monocytes # (Manual) (0-1.0) k/uL Nucleated RBCs (0-0) /100 WBC Chloride (98-107) mmol/L Carbon Dioxide (22-30) mmol/L BUN (7-17) mg/dL Glucose (74-99) mg/dL POC Glucose (mg/dL) 125 H 126 H 164 H (70-110) mg/dL 01/07/22 01/07/22 01/07/22 Range/Units 05:14 06:00 06:51 WBC (3.8-10.6) k/uL RBC (3.80-5.40) m/uL Hgb (11.4-16.0) gm/dL Hct (34.0-46.0) % MCHC (31.0-37.0) g/dL RDW (11.5-15.5) % Plt Count (150-450) k/uL Neutrophils # (Manual) (1.3-7.7) k/uL Monocytes # (Manual) (0-1.0) k/uL Nucleated RBCs (0-0) /100 WBC Chloride (98-107) mmol/L Carbon Dioxide (22-30) mmol/L BUN (7-17) mg/dL Glucose (74-99) mg/dL POC Glucose (mg/dL) 178 H 211 H 168 H (70-110) mg/dL 01/07/22 01/07/22 01/07/22 Range/Units 07:28 07:28 08:10 WBC 18.9 H (3.8-10.6) k/uL RBC 3.57 L (3.80-5.40) m/uL Hgb 9.3 L D (11.4-16.0) gm/dL Hct 31.3 L (34.0-46.0) % MCHC 29.6 L (31.0-37.0) g/dL RDW 20.0 H (11.5-15.5) % Plt Count 683 H (150-450) k/uL Neutrophils # (Manual) 15.80 H (1.3-7.7) k/uL Monocytes # (Manual) 1.32 H (0-1.0) k/uL Nucleated RBCs 4 H (0-0) /100 WBC Chloride 108 H (98-107) mmol/L Carbon Dioxide 18 L (22-30) mmol/L BUN 25 H (7-17) mg/dL Glucose 157 H (74-99) mg/dL POC Glucose (mg/dL) 172 H (70-110) mg/dL 01/07/22 01/07/22 Range/Units 09:06 11:09 WBC (3.8-10.6) k/uL RBC (3.80-5.40) m/uL Hgb (11.4-16.0) gm/dL Hct (34.0-46.0) % MCHC (31.0-37.0) g/dL RDW (11.5-15.5) % Plt Count (150-450) k/uL Neutrophils # (Manual) (1.3-7.7) k/uL Monocytes # (Manual) (0-1.0) k/uL Nucleated RBCs (0-0) /100 WBC Chloride (98-107) mmol/L Carbon Dioxide (22-30) mmol/L BUN (7-17) mg/dL Glucose (74-99) mg/dL POC Glucose (mg/dL) 161 H 174 H (70-110) mg/dL Assessment and Plan Assessment: Impression: Coronary artery disease status post three-vessel CABG, postoperative day #16 Failure to wean and extubate, patient failed weaning 3 times, will give the patient a trial of weaning and extubation, however I'm not too optimistic about successful extubation. Mild COPD, FEV1 is normally 73%. Tobacco dependence syndrome. History of alcoholism. Patient drinks on the average of 1 pint per day of li quor. History of hepatitis C. Status post left-sided thoracentesis on 01/02/22, however no more than 2 50 mL of fluid was drained. Postoperative blood loss anemia, expected history of CVA. History of depression. History of substance abuse including cocaine and alcohol and marijuana. History of nephrectomy. Patient has 1 solitary kidney. Status post bronchoscopy for airways evaluation done on 01/06/2022 prior to weaning and possible extubation Recommendation: Continue oxygen and titrate accordingly Continue incentive spirometry Continue bronchodilators. Discontinue steroids. However continue antibiotics for now. Continue GI and DVT prophylaxis. We will continue to follow. Discussed his status with cardiac surgery on the case if continue to monitor in the ICU for now Time with Patient: Less than 30
[2022-01-07 16:46] LABS: Glucose,Whole Blood 227 mg/dL (70-110)
[2022-01-07] MEDS: FERROUS SULFATE 325 MG TAB PO SCH (16:53)
[2022-01-07] MEDS: INSULIN ASPART (NovoLOG) 100 UNIT/ML VIAL SQ SCH ×2 (16:53→20:23)
[2022-01-07] MEDS ORDERED: FERROUS SULFATE ORAL ELIXIR 300 MG/5 ML CUP PO SCH (17:30)
[2022-01-07 18:01] LABS: Glucose,Whole Blood 165 mg/dL (70-110)
[2022-01-07 20:14] LABS: Glucose,Whole Blood 120 mg/dL (70-110)
[2022-01-07] MEDS: LORazepam 0.5 MG TAB PO PRN (20:44)
[2022-01-07] MEDS: SENNOSIDES-DOCUSATE SODIUM 1 EACH TAB PO SCH (20:44)
[2022-01-08] MEDS: HEPARIN SODIUM,PORCINE/PF 5,000 UNIT/0.5 ML SYRINGE SQ SCH ×3 (00:36→17:51)
[2022-01-08] MEDS: CEFEPIME 2 GM in SODIUM CHLORIDE 0.9% 100 ML IVPB SCH ×3 (01:01→17:51)
[2022-01-08] MEDS: HYDROmorphone 1 MG/ML 1 ML SYRINGE IVP PRN ×5 (01:02→22:47)
[2022-01-08] MEDS: DEXMEDETOMIDINE/0.9% NACL(PMX) 400 MCG in EMPTY BAG 1 BAG IV SCH (01:09)
[2022-01-08 06:18] LABS: ALT 64 U/L (4-34); AST 43 U/L (14-36); African American GFR (CKD) >90 (>60 ml/min/1.73 sqM); Albumin 2.8 g/dL (3.5-5.0); Alkaline Phosphatase 57 U/L (38-126); Anion Gap 7 mmol/L; Blood Urea Nitrogen 21 mg/dL (7-17); Calcium 8.9 mg/dL (8.4-10.2); Carbon Dioxide 18 mmol/L (22-30); Chloride 114 mmol/L (98-107); Glucose 136 mg/dL (74-99); Non-African American GFR(CKD) >90 (>60 ml/min/1.73 sqM); Potassium 3.8 mmol/L (3.5-5.1); Sodium 139 mmol/L (137-145); Total Bilirubin 0.7 mg/dL (0.2-1.3); Total Protein 6.3 g/dL (6.3-8.2)
[2022-01-08 06:27] LABS: Glucose,Whole Blood 156 mg/dL (70-110)
[2022-01-08] MEDS: FERROUS SULFATE 325 MG TAB PO SCH ×2 (06:29→17:51)
[2022-01-08] MEDS: INSULIN ASPART (NovoLOG) 100 UNIT/ML VIAL SQ SCH ×4 (06:29→20:16)
[2022-01-08] MEDS: PANTOPRAZOLE 40 MG TABLET PO SCH (06:29)
[2022-01-08] MEDS: THIAMINE 100 MG TAB PO SCH ×2 (06:29→17:51)
[2022-01-08 06:40] LABS: Anisocytosis Moderate; HCT 27.7 % (34.0-46.0); HGB 8.5 gm/dL (11.4-16.0); Hypochromasia Marked; MCH 26.9 pg (25.0-35.0); MCHC 30.5 g/dL (31.0-37.0); Mean Platelet Volume 10.1; Platelet Count 444 k/uL (150-450); Poikilocytosis Moderate; RBC 3.15 m/uL (3.80-5.40); RDW 20.3 % (11.5-15.5)
[2022-01-08 07:10] LABS: Anisocytosis (M) Present; Hypochromasia (M) Present; Lymphocytes # (M) 2.02 k/uL (1.0-4.8); Monocytes # (M) 0.14 k/uL (0-1.0); Neutrophils # (M) 12.24 k/uL (1.3-7.7); Neutrophils % (M) 85 %; Nucleated Red Blood Cells 5 /100 WBC (0-0); Poikilocytosis (M) Present; Polychromasia Present; Target Cells Present; Total Cells Counted 100; WBC 14.4 k/uL (3.8-10.6)
[2022-01-08 07:11] LABS: Ovalocytes Present; Tear Drop Cells Present
[2022-01-08] MEDS: IPRATROPIUM-ALBUTEROL 3 ML NEB INHALATION SCH ×4 (07:33→19:35)
--- NOTE | 2022-01-08 07:36 | XR ---
EXAMINATION TYPE: XR chest 1V portable DATE OF EXAM: 01/08/2022 COMPARISON: Chest x-ray 01/07/2022 HISTORY: Postop cardiac surgery TECHNIQUE: Single frontal view of the chest is obtained. FINDINGS: There is a right-sided PICC line in place in stable position. Patient is rotated. Intersti tium is increased. Cardiac mediastinal silhouette is likely stable accounting for rotation. No eviden t pneumothorax or pleural effusion. Patient shows left atrial appendage clip placement. There are ove rlying artifacts. IMPRESSION: Correlate for volume overload, interstitial edema
[2022-01-08] MEDS ORDERED: POTASSIUM CHLORIDE ER 20 MEQ TAB.ER PO SCH (08:00)
--- NOTE | 2022-01-08 08:19 | P.PN ---
Subjective Progress Note Date: 01/08/22 Principal diagnosis: Coronary artery disease with left main disease. Past medical history significant for hypertension, current ongoing tobacco dependence with mild COPD, daily EtOH use (1 pint per day of liquor), occasional marijuana and cocaine use (UDS was positive for cocaine on admission), hepatitis C, CVA 20 years ago, and solitary kidney. POD #17 coronary artery bypass grafting 3 vessels, left internal mammary artery to the left anterior descending artery, a reverse saphenous vein graft to the obtuse marginal coronary artery, a reverse saphenous vein graft to the posterior descending coronary artery, endoscopic harvesting of the left greater saphenous vein, ligation of the left atrial appendage using a 35 mm AtriClip, epi-aortic ultrasound and intraoperative transesophageal echocardiogram Postoperative acute blood loss anemia and thrombocytopenia, expected given hemodilution and cardiopulmonary bypass pump. Suspected alcohol/drug withdrawal with thoracoabdominal dyssynchrony breathing pattern, respiratory compromise and stridor requiring reintubation. The patient was seen and examined today 01/08/2022 at her bedside in the intensive care unit. Currently, the patient is sitting up to the bedside chair, is awake, alert, oriented 3 and is in no acute distress. She denies any complaints of pain or shortness of breath this time. Oxygen saturations are 97% on 4 L nasal cannula and she is achieving 1500 mL on her incentive spirometry with encouragement. Bedside telemetry showing normal sinus rhythm heart rate 62 BPM. She remains hemodynamically stable and is currently on no inotropic pressure support. Young catheter remains in place for accurate I's and O's, urine output the last 8 hours has been 1.2 L. Laboratory results this morning s how a WBC count continuing to trend down at 15.1, hemoglobin 8.5, hematocrit 27.7, eyelids 444, sodium 139, potassium 3.8, CO2 18, BUN 21, creatinine 0.65, glucose 136, calcium 8.9, AST 43 and ALT 64. According to the patient's right nurse, the patient became fairly restless last night and was started on a Precedex drip, which is currently off. The patient has been afebrile last 24 hours. She has been tolerating oral intake, and is currently eating her breakfast. Objective - Vital Signs Vital signs: Vital Signs Temp 98.0 F 01/08/22 04:00 Pulse 62 01/08/22 07:00 Resp 16 01/08/22 07:00 BP 109/63 01/08/22 07:00 Pulse Ox 95 01/08/22 07:00 FiO2 3 01/08/22 00:00 Intake & Output 01/07/22 01/08/22 01/08/22 18:59 06:59 18:59 Intake Total 1333.791 257.703 20 Output Total 1540 2100 100 Balance -206.209 -1842.297 -80 Weight 73 kg 73.2 kg Intake: IV 340 240 20 0.9 @ 20 240 240 20 Cefepime 2 gm In Sodium 100 Chloride 0.9% 100 ml @ 25 mls/hr IVPB Q8H [facility] Rx#: [id number] Intake, IV Titration 33.791 17.703 Amount Dexmedetomidine/0.9% NaCl 17.703 (Pmx) 400 mcg In Empty Bag 1 bag @ 0.2 MCG/KG/HR 3.65 mls/hr IV .Q24H [facility] Rx#:[id number] fentaNYL (PF). 1,000 mcg 33.791 In Sodium Chloride 0.9% 80 ml @ 0.5 MCG/KG/HR 3. 64 mls/hr IV .Q24H [facility] Rx #:[id number] Oral 960 Output: Urine 1540 2100 100 Other: Voiding Method Indwelling Catheter Indwelling Catheter ABP, PAP, CO, CI - Last Documented Arterial Blood Pressure 174/171 Pulmonary Artery Pressure 34/8 Cardiac Output 4.8 Cardiac Index 2.7 - Exam CONSTITUTIONAL: Currently sitting up to the bedside chair in the intensive care unit. She is is awake, alert and oriented 3, cooperative and in no apparent acute distress. RESPIRATORY: Lungs sounds diminished throughout bilaterally. No wheezes, rhonchi or crackles. Respirations are symmetrical, and nonlabored. Oxygen saturation are 97 % on 4 L nasal cannula. She is achieving 1500 mL on her incentive spirometry. CARDIOVASCULAR: S1, S2 present. Regular rate and rhythm, sinus rhythm on telemetry, heart rate 62 BPM. Sternum stable. Palpable peripheral pulses bilaterally. No edema present. No calf pain or tenderness noted. Heart hugger, antiembolism stockings, SCDs present. GASTROINTESTINAL: Abdomen soft, nontender, nondistended. Active bowel sounds present 4 quadrants. No guarding or rigidity. Tolerating diet. Bowel movement on 01/05/2022. GENITOURINARY: Young catheter in place for accurate I's and O's. Urine output 1200 mL in the last 8 hours. INTEGUMENTARY: Skin is warm and dry without evidence of clubbing or cyanosis. Midline sternal chest incision well approximated and covered with dry intact dressing. Left lower extremity EVH site well approximated without redness or drainage. NEUROLOGIC: Awake, alert and oriented 3. No focal deficits. INVASIVE LINES AND TUBES: A/V epicardial pacemaker wires present, and grounded. Right arm PICC line catheter in place and functioning. - Allied health notes Allied health notes reviewed: nursing - Labs CBC & Chem 7: 01/08/22 05:56 01/08/22 05:56 Labs: Abnormal Lab Results - Last 24 Hours (Table) 01/07/22 01/07/22 01/07/22 Range/Units 07:28 07:28 08:10 WBC 18.9 H (3.8-10.6) k/uL RBC 3.57 L (3.80-5.40) m/uL Hgb 9.3 L D (11.4-16.0) gm/dL Hct 31.3 L (34.0-46.0) % MCHC 29.6 L (31.0-37.0) g/dL RDW 20.0 H (11.5-15.5) % Plt Count 683 H (150-450) k/uL Neutrophils # (Manual) 15.80 H (1.3-7.7) k/uL Monocytes # (Manual) 1.32 H (0-1.0) k/uL Nucleated RBCs 4 H (0-0) /100 WBC Chloride 108 H (98-107) mmol/L Carbon Dioxide 18 L (22-30) mmol/L BUN 25 H (7-17) mg/dL Glucose 157 H (74-99) mg/dL POC Glucose (mg/dL) 172 H (70-110) mg/dL AST (14-36) U/L ALT (4-34) U/L Albumin (3.5-5.0) g/dL 01/07/22 01/07/22 01/07/22 Range/Units 09:06 11:09 13:04 WBC (3.8-10.6) k/uL RBC (3.80-5.40) m/uL Hgb (11.4-16.0) gm/dL Hct (34.0-46.0) % MCHC (31.0-37.0) g/dL RDW (11.5-15.5) % Plt Count (150-450) k/uL Neutrophils # (Manual) (1.3-7.7) k/uL Monocytes # (Manual) (0-1.0) k/uL Nucleated RBCs (0-0) /100 WBC Chloride (98-107) mmol/L Carbon Dioxide (22-30) mmol/L BUN (7-17) mg/dL Glucose (74-99) mg/dL POC Glucose (mg/dL) 161 H 174 H 192 H (70-110) mg/dL AST (14-36) U/L ALT (4-34) U/L Albumin (3.5-5.0) g/dL 01/07/22 01/07/22 01/07/22 Range/Units 16:44 17:59 20:12 WBC (3.8-10.6) k/uL RBC (3.80-5.40) m/uL Hgb (11.4-16.0) gm/dL Hct (34.0-46.0) % MCHC (31.0-37.0) g/dL RDW (11.5-15.5) % Plt Count (150-450) k/uL Neutrophils # (Manual) (1.3-7.7) k/uL Monocytes # (Manual) (0-1.0) k/uL Nucleated RBCs (0-0) /100 WBC Chloride (98-107) mmol/L Carbon Dioxide (22-30) mmol/L BUN (7-17) mg/dL Glucose (74-99) mg/dL POC Glucose (mg/dL) 227 H 165 H 120 H (70-110) mg/dL AST (14-36) U/L ALT (4-34) U/L Albumin (3.5-5.0) g/dL 01/08/22 01/08/22 01/08/22 Range/Units 05:56 05:56 06:25 WBC 14.4 H (3.8-10.6) k/uL RBC 3.15 L (3.80-5.40) m/uL Hgb 8.5 L (11.4-16.0) gm/dL Hct 27.7 L (34.0-46.0) % MCHC 30.5 L (31.0-37.0) g/dL RDW 20.3 H (11.5-15.5) % Plt Count (150-450) k/uL Neutrophils # (Manual) 12.24 H (1.3-7.7) k/uL Monocytes # (Manual) (0-1.0) k/uL Nucleated RBCs 5 H (0-0) /100 WBC Chloride 114 H (98-107) mmol/L Carbon Dioxide 18 L (22-30) mmol/L BUN 21 H (7-17) mg/dL Glucose 136 H (74-99) mg/dL POC Glucose (mg/dL) 156 H (70-110) mg/dL AST 43 H (14-36) U/L ALT 64 H (4-34) U/L Albumin 2.8 L (3.5-5.0) g/dL - Imaging and Cardiology Chest x-ray: report reviewed, image reviewed Assessment and Plan Assessment: 1. Coronary artery disease with left main disease, status post three-vessel CABG 2. History of hypertension 3. Current ongoing tobacco dependence 4. Mild COPD, preoperative FEV1 was 73% of predicted 5. Daily EtOH use (1 pint per day of liquor) 6. Occasional marijuana and cocaine use (UDS was positive for cocaine on admission) 7. Hepatitis C 8. CVA 20 years ago 9. Solitary kidney. 10. Postoperative acute blood loss anemia and thrombocytopenia, expected 11. Suspected alcohol/drug withdrawal with thoracoabdominal dyssynchrony b reathing pattern, respiratory compromise and stridor requiring reintubation, extubated 01/06/2022 12. Leukocytosis, likely secondary to the dexamethasone, remains afebrile Plan: 1. Continue aspirin, statin, Plavix, Norvasc, and beta briana. We will increase metoprolol tartrate as tolerated. 2. Wean oxygen as tolerated to maintain oxygen saturations greater than or equal to 92%. 3. Bronchodilator management per pulmonary/critical care medicine. 4. Will monitor daily labs and chest x-rays. Electrolyte replacement per protocol. 5. GI/DVT prophylaxis. 6. Pain control current medication regimen. 7. Continue Seroquel 100 mg by mouth twice a day. 8. Insulin management per primary care services. Patient is not diabetic, preoperative hemoglobin A1c 5.4%. 9. Patient counseled preoperatively and will continue to be counseled throughout her stay that she should refrain from smoking, drinking, using illicit drugs. 10. Remove Young catheter, continue to record strict and accurate intake and output. Daily weights. 11. No diuresis today as the patient is diuresing on her own. Urine output in the last 8 hours was 1.2 L. 12. Keep atrial and ventricular epicardial pacemaker wires in place and grounded. We will remove her epicardial pacemaker wires on 01/10/2022. 13. Encourage use of her incentive spirometry 10 times every hour while awake. 14. Cefepime IV antibiotic management per pulmonary/critical care service recommendations. Sputum culture from 12/29/2021 showed Streptococcus pneumoniae and Corynebacterium striatum. 15. Consult Dr. Avery for inpatient rehab evaluation. 16. Increase activity as tolerated. Out of bed for all meals. Cardiac rehab/PT/OT following. 17. More recommendations to follow based on patient's clinical course. Time with Patient: Greater than 30
[2022-01-08] MEDS: ATORVASTATIN 40 MG TAB PO SCH (09:30)
[2022-01-08] MEDS: FLUoxetine HCL 20 MG CAP PO SCH (09:30)
[2022-01-08] MEDS: MULTIVITAMINS, THERA 1 EACH TAB PO SCH (09:31)
[2022-01-08] MEDS: ASPIRIN 81 MG PO SCH (09:31)
[2022-01-08] MEDS: CLOPIDOGREL 75 MG TAB PO SCH (09:31)
[2022-01-08] MEDS: ASCORBIC ACID 500 MG TAB PO SCH ×2 (09:31→20:11)
[2022-01-08] MEDS: QUEtiapine 100 MG TAB PO SCH ×2 (11:15→20:11)
[2022-01-08 11:34] LABS: Glucose,Whole Blood 109 mg/dL (70-110)
--- NOTE | 2022-01-08 12:19 | P.PN ---
Subjective Progress Note Date: 01/08/22 Principal diagnosis: POD#17 coronary artery bypass grafting 3 vessels, left internal mammary artery to the left anterior descending artery, a reverse saphenous vein graft to the o btuse marginal coronary artery, a reverse saphenous vein graft to the posterior descending coronary artery, endoscopic harvesting of the left greater saphenous vein, ligation of the left atrial appendage using a 35 mm AtriClip, epi-aortic ultrasound and intraoperative transesophageal echocardiogram On 01/03/2022 patient seen in follow-up in intensive care unit, yesterday patient was again weaned and extubated from the mechanical ventilator however she again quickly field, partially because of Stridor, her pulmonary secretions were reportedly improved at the time. Patient was reintubated and placed on mechanical ventilator, this morning she is on assist-control mode of ventilation with a rate of 20, tidal vital 375, FiO2 40% and PEEP of 5, this morning's blood gas shows pO2 of 150, pCO2 43, pH of 7.38. Chest x-ray showing bilateral small pleural effusions, and left lower lung pulmonary atelectasis. Per respiratory therapy patient continues to have quite significant amount of secretions from the ET tube, although the amount and color seem to have improved some. Patient is currently sedated on Diprivan at 35 mics per kilo per minute, and she is waking up and following simple commands, she is on fentanyl infusion at 0.5 mics per kilo per minute, and 0.9 normal saline at a rate of 20 ML per hour, she is tolerating tube feedings with vital HP at a rate of 50 with a goal of 50. She is in sinus mechanism at a rate of 98 BPM. Her [place] catheter has been discontinued. Mediastinal and right and left pleural chest tubes have been discontinued a few days ago. Patient continues on cefepime, and vancomycin. Sputum culture was positive for Streptococcus pneumonia and Corynebacterium stratum, and patient has been on cefepime and vancomycin. Patient has been receiving Lasix on a daily basis, and she was started on maintenance dose of IV Lasix 40 mg every 8 hours, and IV steroids with Solu-Medrol 60 mg every 6 hours. Patient underwent left-sided thoracentesis yesterday would removal of 250 mL of turbid blood-tinged fluid. The rest of today's lab 7 reviewed, showing white blood cell count of 12.9, hemoglobin is 6.6, platelet count of 617. Chloride was 1:15, the rest of the electrolytes were unremarkable, BUN is 26 and creatinine 0.64. Patient is waking up and following simple commands, she has however become aggressive, she is trying to talk to us. She is still producing moderate amount of yellow colored phlegm which is garage supervisor in color. She's been afebrile overnight, hold for surgical incisions are clean dry and intact, abdomen is soft, she is tolerating tube feedings. Reevaluated today on01/04/22, patient remains in the ICU, intubated mechanically ventilated. Assist control rate of 20 to follow 375 FiO2 40% PEEP of 5. ABG showed a pO2 of 89 pCO2 of 39 pH of 7.41. Remains on propofol at 35 mcg/kg/m, and she is on fentanyl at 0.5 mcg/kg/h. Patient is not requiring any pressors. She is on vital HP as 59 mL per hour. Her sodium is climbing up, and I'm recommending free water to be given via orogastric tube at 200 mL 4 times a day. And I am planning to switch the Solu-Medrol to Decadron for presumptive stridor postextubation although there is no clear history whether the patient did develop stridor or she had difficulty coping with her secretions at any rate patient was extubated and reintubated 3 times already, and I have a very strong feeling that she will continue to fail extubation, and most likely the patient will require eventually tracheostomy and PEG tube placement. Chest x-ray today showed mostly atelectasis, and possibly cardiomegaly and small bilateral effusions. patient is sedated, but arousable, in spite of being on fentanyl and on propofol. WBC count is 12.8 hemoglobin is 6.5, there is quite a bit of reluctance from cardiac surgery to transfer the patient. Metabolic profile seems to be relatively unremarkable. Renal profile is normal Reevaluated today on 01/05/22, patient remains in the ICU, intubated and mechanically ventilated. She is on assist control rate of 20, volume 375 FiO2 40% PEEP of 5. ABG showed a pO2 of 92 pCO2 41 pH of 7.37. Patient is on propofol at 15 mcg/kg/m and she is on fentanyl at 0.5 mcg/kg per hour. IV fluid is at KVO. Patient is arousable but remains lethargic as she still requiring sedation. I did give the patient a trial today of pressure support of 8 and CPAP, however apparently off sedation the patient became agitated, she had significant amount of and she pulled out her nasogastric tube. As I recommended that we go back on sedation, and she is not quite ready for weaning mostly because of significant secretions noted by respiratory therapist. Chest x-ray is basically unchanged, continues to show bilateral basilar opacities, patient had small pleural effusions, she had thoracentesis a few days ago by Dr. Padilla, and he was able to remove 250 mL at best. WBC count is 15 hemoglobin is 6.7 basic metabolic profile is relatively unremarkable, continues to have elevated sodium of 146. Reevaluated today on 01/06/2022 patient remains in the ICU intubated and mechanically ventilated. Her vent settings are basically the same, patient is on assist control rate of 20, volume to 75 FiO2 40%. and PEEP of 5, patient is basically about the same compared to the last few days. Her ABG showed a pO2 of 69 pCO2 40 pH of 7.38. She is on propofol at 60 and fentanyl at 0.5 mcg/kg/h. IV fluids at KVO. Today I recommended bronchoscopy since the patient seems to fail weaning mostly because of secretions, however I didn't examine the patient today, bronchoscopy was done, no evidence of significant secretions noted in the airways. Minimal whitish secretions were suctioned easily, patient did not require lavage of the lungs hence my plan is to place the patient back on a pressure support mode of mechanical ventilation, pressure support of 10 and CPA P, and possibly extubate the patient to BiPAP later today. Chest x-ray has shown improvement in her bilateral opacities and pleural effusions hence I believe this is a window to consider weaning on this patient Reevaluated today on 01/07/2022, patient remains in the ICU, however she was extubated yesterday uneventfully, she was initially extubated to BiPAP, she is now on 4 L nasal cannula, patient is sitting at a bedside chair, still having fentanyl infusion which I have discontinued today, he could receive Dilaudid when necessary for pain or discomfort. Patient will be off Decadron, and she remains on antibiotics, chest x-ray showing significant improvement. And yesterday bronchoscopy was basically unremarkable. No evidence of significant secretions noted during the bronchoscopy. WBC count is 18.9 hemoglobin is 9.3. Basic metabolic profile is normal. Renal profile is normal. Chest x-ray is showing cardiomegaly, and hypoventilatory changes very minimal pulmonary congestion Reevaluated today on 01/08/22, remains in the ICU, patient became quite agitated last night, and she was becoming restless, I recommended a trial of Precedex drip, and she received 1 dose of Dilaudid. Patient calmed down nicely, today she is off Precedex, she seems to be doing fairly well, not in any distress, she is on 4 L nasal cannula. And her O2 sats is 97%. Achieving 1500 mL and her incentive spirometer. He is in sinus rhythm, rate of 62 bpm, hemodynamically stable, not requiring any inotropes or any pressors. Her urine output is good. Chest x-ray is basically unremarkable, minimal pulmonary vascular congestion noted. And basilar atelectasis. WBC count is 14.4 hemoglobin 8.5. Elect rolytes are normal, BUN is 21 creatinine 0.65. Objective - Vital Signs Vital signs: Vital Signs Temp 97.7 F 01/08/22 08:00 Pulse 63 01/08/22 11:00 Resp 62 H 01/08/22 11:00 BP 149/88 01/08/22 11:00 Pulse Ox 97 01/08/22 11:00 FiO2 3 01/08/22 00:00 Intake & Output 01/07/22 01/08/22 01/08/22 18:59 06:59 18:59 Intake Total 1333.791 257.703 360 Output Total 1540 2100 300 Balance -206.209 -1842.297 60 Weight 73 kg 73.2 kg Intake: IV 340 240 160 0.9 @ 20 240 240 60 Cefepime 2 gm In Sodium 100 100 Chloride 0.9% 100 ml @ 25 mls/hr IVPB Q8H [facility] Rx#: [id number] Intake, IV Titration 33.791 17.703 Amount Dexmedetomidine/0.9% NaCl 17.703 (Pmx) 400 mcg In Empty Bag 1 bag @ 0.2 MCG/KG/HR 3.65 mls/hr IV .Q24H [facility] Rx#:[id number] fentaNYL (PF). 1,000 mcg 33.791 In Sodium Chloride 0.9% 80 ml @ 0.5 MCG/KG/HR 3. 64 mls/hr IV .Q24H [facility] Rx #:[id number] Oral 960 200 Output: Urine 1540 2100 300 Other: Voiding Method Indwelling Catheter Indwelling Catheter # Voids 1 ABP, PAP, CO, CI - Last Documented Arterial Blood Pressure 174/171 Pulmonary Artery Pressure 34/8 Cardiac Output 4.8 Cardiac Index 2.7 - Exam Physical Exam: Revealed 66-year-old female sitting at a bedside chair, on 4 L nasal cannula, in no distress. Head: Atraumatic, normocephalic. HEENT:[Neck is supple.] [No neck masses.] [No thyromegaly.] [No JVD.] Chest: Symmetrical chest expansion, diminished breath sounds at the bases no rhonchi and no wheezes. Cardiac Exam: Distant S1 and S2, no S3 gallop. Abdomen: [Soft, nontender, no megaly, no rebound, no guarding, normal bowel sounds.] Extremities: [No clubbing, trace of bipedal edema, no cyanosis.] Right brachial arterial line is noted. Neurological Exam: Grossly intact, alert oriented 3, no gross deficits. Psychiatric: Normal mood affect and seems to have normal mental status. Skin: No rashes. - Labs CBC & Chem 7: 01/08/22 05:56 01/08/22 05:56 Labs: Abnormal Lab Results - Last 24 Hours (Table) 01/07/22 01/07/22 01/07/22 Range/Units 13:04 16:44 17:59 WBC (3.8-10.6) k/uL RBC (3.80-5.40) m/uL Hgb (11.4-16.0) gm/dL Hct (34.0-46.0) % MCHC (31.0-37.0) g/dL RDW (11.5-15.5) % Neutrophils # (Manual) (1.3-7.7) k/uL Nucleated RBCs (0-0) /100 WBC Chloride (98-107) mmol/L Carbon Dioxide (22-30) mmol/L BUN (7-17) mg/dL Glucose (74-99) mg/dL POC Glucose (mg/dL) 192 H 227 H 165 H (70-110) mg/dL AST (14-36) U/L ALT (4-34) U/L Albumin (3.5-5.0) g/dL 01/07/22 01/08/22 01/08/22 Range/Units 20:12 05:56 05:56 WBC 14.4 H (3.8-10.6) k/uL RBC 3.15 L (3.80-5.40) m/uL Hgb 8.5 L (11.4-16.0) gm/dL Hct 27.7 L (34.0-46.0) % MCHC 30.5 L (31.0-37.0) g/dL RDW 20.3 H (11.5-15.5) % Neutrophils # (Manual) 12.24 H (1.3-7.7) k/uL Nucleated RBCs 5 H (0-0) /100 WBC Chloride 114 H (98-107) mmol/L Carbon Dioxide 18 L (22-30) mmol/L BUN 21 H (7-17) mg/dL Glucose 136 H (74-99) mg/dL POC Glucose (mg/dL) 120 H (70-110) mg/dL AST 43 H (14-36) U/L ALT 64 H (4-34) U/L Albumin 2.8 L (3.5-5.0) g/dL 01/08/22 Range/Units 06:25 WBC (3.8-10.6) k/uL RBC (3.80-5.40) m/uL Hgb (11.4-16.0) gm/dL Hct (34.0-46.0) % MCHC (31.0-37.0) g/dL RDW (11.5-15.5) % Neutrophils # (Manual) (1.3-7.7) k/uL Nucleated RBCs (0-0) /100 WBC Chloride (98-107) mmol/L Carbon Dioxide (22-30) mmol/L BUN (7-17) mg/dL Glucose (74-99) mg/dL POC Glucose (mg/dL) 156 H (70-110) mg/dL AST (14-36) U/L ALT (4-34) U/L Albumin (3.5-5.0) g/dL Assessment and Plan Assessment: Impression: Coronary artery disease status post three-vessel CABG, postoperative day #17 Failure to wean and extubate, patient failed weaning 3 times, patient was extubated 2 days ago, and she seemed to tolerate extubation well so far this is the fourth extubation since her surgery. Mild COPD, FEV1 is normally 73%. Tobacco dependence syndrome. History of alcoholism. Patient drinks on the average of 1 pint per day of liquor. History of hepatitis C. Status post left-sided thoracentesis on 01/02/22, however no more than 2 50 mL of fluid was drained. Postoperative blood loss anemia, expected history of CVA. History of depression. History of substance abuse including cocaine and alcohol and marijuana. History of nephrectomy. Patient has 1 solitary kidney. Status post bronchoscopy for airways evaluation done on 01/06/2022 prior to weaning and extubation which has been successful on 01/06 Recommendation: Continue oxygen Continue incentive spirometry Continue bronchodilators. Ambulation.. Continue GI and DVT prophylaxis. We will continue to follow. Time with Patient: Less than 30
[2022-01-08] MEDS: amLODIPine 10 MG TAB PO SCH (13:38)
[2022-01-08] MEDS: METOPROLOL TARTRATE 50 MG TAB PO SCH ×2 (13:39→20:11)
[2022-01-08 16:35] LABS: Glucose,Whole Blood 103 mg/dL (70-110)
[2022-01-08] MEDS: SENNOSIDES-DOCUSATE SODIUM 1 EACH TAB PO SCH (20:10)
[2022-01-08 20:14] LABS: Glucose,Whole Blood 94 mg/dL (70-110)
[2022-01-09] MEDS: HEPARIN SODIUM,PORCINE/PF 5,000 UNIT/0.5 ML SYRINGE SQ SCH ×3 (01:01→18:00)
[2022-01-09] MEDS: CEFEPIME 2 GM in SODIUM CHLORIDE 0.9% 100 ML IVPB SCH ×2 (01:01→08:27)
[2022-01-09] MEDS: DEXMEDETOMIDINE/0.9% NACL(PMX) 400 MCG in EMPTY BAG 1 BAG IV SCH (01:02)
[2022-01-09] MEDS: HYDROmorphone 1 MG/ML 1 ML SYRINGE IVP PRN (03:52)
[2022-01-09 05:47] LABS: Glucose,Whole Blood 113 mg/dL (70-110)
[2022-01-09 05:56] LABS: Anisocytosis Moderate; Basophils % (A) 0 %; Eosinophils # (A) 0.3 k/uL (0-0.7); Eosinophils % (A) 3 %; HCT 28.7 % (34.0-46.0); HGB 8.7 gm/dL (11.4-16.0); Hypochromasia Marked; Lymphocytes # (A) 1.9 k/uL (1.0-4.8); Lymphocytes % (A) 22 %; MCH 26.8 pg (25.0-35.0); MCHC 30.4 g/dL (31.0-37.0); MCV 88.2 fL (80.0-100.0); Mean Platelet Volume 8.8; Monocytes # (A) 0.6 k/uL (0-1.0); Monocytes % (A) 6 %; Neutrophils # (A) 5.5 k/uL (1.3-7.7); Neutrophils % (A) 64 %; Platelet Count 534 k/uL (150-450); Poikilocytosis Moderate; RBC 3.25 m/uL (3.80-5.40); RDW 20.1 % (11.5-15.5); WBC 8.6 k/uL (3.8-10.6)
[2022-01-09 06:08] LABS: ALT 53 U/L (4-34); AST 41 U/L (14-36); African American GFR (CKD) >90 (>60 ml/min/1.73 sqM); Albumin 2.9 g/dL (3.5-5.0); Alkaline Phosphatase 55 U/L (38-126); Anion Gap 7 mmol/L; Blood Urea Nitrogen 19 mg/dL (7-17); Calcium 9.3 mg/dL (8.4-10.2); Carbon Dioxide 17 mmol/L (22-30); Chloride 113 mmol/L (98-107); Glucose 112 mg/dL (74-99); Non-African American GFR(CKD) >90 (>60 ml/min/1.73 sqM); Sodium 137 mmol/L (137-145); Total Bilirubin 0.8 mg/dL (0.2-1.3); Total Protein 6.4 g/dL (6.3-8.2)
[2022-01-09] MEDS: FERROUS SULFATE 325 MG TAB PO SCH ×2 (06:51→18:00)
[2022-01-09] MEDS: PANTOPRAZOLE 40 MG TABLET PO SCH (06:51)
[2022-01-09] MEDS: THIAMINE 100 MG TAB PO SCH ×2 (06:51→18:00)
[2022-01-09 06:54] LABS: Glucose,Whole Blood 119 mg/dL (70-110)
[2022-01-09] MEDS: INSULIN ASPART (NovoLOG) 100 UNIT/ML VIAL SQ SCH ×4 (06:55→20:48)
[2022-01-09] MEDS: ACETAMINOPHEN TAB 325 MG TAB PO PRN (07:03)
[2022-01-09] MEDS: IPRATROPIUM-ALBUTEROL 3 ML NEB INHALATION SCH ×4 (07:23→19:23)
--- NOTE | 2022-01-09 07:53 | XR ---
EXAMINATION TYPE: XR chest 1V portable DATE OF EXAM: 01/09/2022 6:02 AM COMPARISON: Chest radiograph from one day prior. TECHNIQUE: XR chest 1V portable Portable AP radiograph of the chest. CLINICAL INDICATION:Female, 66 years old with history of Postoperative cardiac surgery; FINDINGS: Lungs/Pleura: There is no evidence of pleural effusion, focal consolidation, or pneumothorax. Pulmonary vascularity: Mild pulmonary vascular congestion. Heart/mediastinum: Cardiomediastinal silhouette is enlarged and stable. Postoperative changes are pr esent in the mediastinum. Atrial occlusion device present. Musculoskeletal: No acute osseous pathology. Midline sternotomy wires are noted and stable. IMPRESSION: 1. Mild pulmonary vessel congestion 2. Stable cardiomegaly.
[2022-01-09] MEDS ORDERED: FUROSEMIDE 10 MG/ML 4 ML VIAL IV STA (07:57)
[2022-01-09] MEDS: METOPROLOL TARTRATE 50 MG TAB PO SCH ×2 (08:26→20:41)
[2022-01-09] MEDS: MULTIVITAMINS, THERA 1 EACH TAB PO SCH (08:26)
[2022-01-09] MEDS: ATORVASTATIN 40 MG TAB PO SCH (08:26)
[2022-01-09] MEDS: ASPIRIN 81 MG PO SCH (08:27)
[2022-01-09] MEDS: QUEtiapine 100 MG TAB PO SCH ×2 (08:27→20:41)
[2022-01-09] MEDS: CLOPIDOGREL 75 MG TAB PO SCH (08:27)
[2022-01-09] MEDS: FLUoxetine HCL 20 MG CAP PO SCH (08:27)
[2022-01-09] MEDS: ASCORBIC ACID 500 MG TAB PO SCH ×2 (08:27→20:41)
[2022-01-09] MEDS ORDERED: HYDROmorphone 1 MG/ML 1 ML SYRINGE IVP PRN (08:36)
--- NOTE | 2022-01-09 09:03 | P.PN ---
Subjective Progress Note Date: 01/09/22 Principal diagnosis: Coronary artery disease with left main disease. Past medical history significant for hypertension, current ongoing tobacco dependence with mild COPD, daily EtOH use (1 pint per day of liquor), occasional marijuana and cocaine use (UDS was positive for cocaine on admission), hepatitis C, CVA 20 years ago, and solitary kidney. POD #18 coronary artery bypass grafting 3 vessels, left internal mammary artery to the left anterior descending artery, a reverse saphenous vein graft to the obtuse marginal coronary artery, a reverse saphenous vein graft to the posterior descending coronary artery, endoscopic harvesting of the left greater saphenous vein, ligation of the left atrial appendage using a 35 mm AtriClip, epi-aortic ultrasound and intraoperative transesophageal echocardiogram POD #3 bronchoscopy for airway evaluation prior to extubation, completed by Dr. Lopez Postoperative acute blood loss anemia and thrombocytopenia, expected given hemodilution and cardiopulmonary bypass pump. Suspected alcohol/drug withdrawal with thoracoabdominal dyssynchrony breathing pattern, respiratory compromise and stridor requiring reintubation. The patient was seen and examined today 01/09/2022 at her bedside in the intensive care unit. Currently, the patient is sitting up to the bedside chair, is awake, alert, oriented 3 and is in no acute distress. She denies any shortness of breath this time, although is complaining of some generalized pain rating her pain 8 out of 10 on the pain scale. She is tolerating her breakfast. Bedside telemetry showing normal sinus rhythm heart rate 80 bpm. She had been afebrile the last 24 hours and remains on cefepime for antibiotic coverage managed by pulmonary/critical care medicine. On 12/29/2021 she did have a sputum culture showing Streptococcus pneumoniae, and Corynebacterium striatum. Oxygen saturations are 96% on 2 L nasal cannula and she is achieving 1250 mL on her incentive spirometry with encouragement. The patient did ambulate in the intensive care unit hallway yesterday 2 with assistance from 2 nurses. The patient tolerated the walks well but did need to take a few breaks. Her Young catheter has been removed and her urine output in the last 8 hours was 1050 mL. Decadron as been discontinued. Laboratory results this morning show a WBC count of 8.6, hemoglobin 8.7, hematocrit 28.7, platelets 534, sodium 137, potassium 4.0, chloride 113, CO2 17, BUN 19, creatinine 0.64, glucose 119, calcium 9.3, AST 41 and ALT 53. She remains hemodynamically stable and is currently on no inotropic pressor support. Atrial and ventricular epicardial pacemaker wires remained in place and are grounded. Objective - Vital Signs Vital signs: Vital Signs Temp 98.4 F 01/09/22 04:00 Pulse 75 01/09/22 07:00 Resp 18 01/09/22 07:00 BP 146/73 01/09/22 07:00 Pulse Ox 96 01/09/22 07:00 FiO2 3 01/08/22 00:00 Intake & Output 01/08/22 01/09/22 01/09/22 18:59 06:59 18:59 Intake Total 1000 180 20 Output Total 800 1260 0 Balance 200 -1080 20 Weight 70.5 kg Intake: IV 400 180 20 0.9 @ 20 200 180 20 Cefepime 2 gm In Sodium 200 Chloride 0.9% 100 ml @ 25 mls/hr IVPB Q8H [facility] Rx#: [id number] Oral 600 Output: Urine 800 1260 0 Other: Voiding Method Bedside Commode Bedside Commode # Voids 1 ABP, PAP, CO, CI - Last Documented Arterial Blood Pressure 174/171 Pulmonary Artery Pressure 34/8 Cardiac Output 4.8 Cardiac Index 2.7 - Exam CONSTITUTIONAL: Currently sitting up to the bedside chair in the intensive care unit. She is is awake, alert and oriented 3, cooperative and in no apparent acute distress. RESPIRATORY: Lungs sounds diminished throughout bilaterally. No wheezes, rhonchi or crackles. Respirations are symmetrical, and nonlabored. Oxygen saturation are 96 % on 2 L nasal cannula. She is achieving 1250 mL on her incentive spirometry. CARDIOVASCULAR: S1, S2 present. Regular rate and rhythm, sinus rhythm on telemetry, heart rate 80 BPM. Sternum stable. Palpable peripheral pulses bilaterally. No edema present. No calf pain or tenderness noted. Heart hugger, antiembolism stockings, SCDs present. GASTROINTESTINAL: Abdomen soft, nontender, nondistended. Active bowel sounds present 4 quadrants. No guarding or rigidity. Tolerating diet. Most recent bowel movement on 01/05/2022. GENITOURINARY: Continues to void. Urine output 1050 mL in the last 8 hours. INTEGUMENTARY: Skin is warm and dry without evidence of clubbing or cyanosis. Midline sternal chest incision well approximated and covered with dry intact dressing. Left lower extremity EVH site well approximated without redness or drainage. NEUROLOGIC: Awake, alert and oriented 3. No focal deficits. INVASIVE LINES AND TUBES: A/V epicardial pacemaker wires present, and grounded. Right arm PICC line catheter in place and functioning. - Allied health notes Allied health notes reviewed: nursing - Labs CBC & Chem 7: 01/09/22 05:41 01/09/22 05:41 Labs: Abnormal Lab Results - Last 24 Hours (Table) 01/09/22 01/09/22 01/09/22 Range/Units 05:41 05:41 05:46 RBC 3.25 L (3.80-5.40) m/uL Hgb 8.7 L (11.4-16.0) gm/dL Hct 28.7 L (34.0-46.0) % MCHC 30.4 L (31.0-37.0) g/dL RDW 20.1 H (11.5-15.5) % Plt Count 534 H (150-450) k/uL Chloride 113 H (98-107) mmol/L Carbon Dioxide 17 L (22-30) mmol/L BUN 19 H (7-17) mg/dL Glucose 112 H (74-99) mg/dL POC Glucose (mg/dL) 113 H (70-110) mg/dL AST 41 H (14-36) U/L ALT 53 H (4-34) U/L Albumin 2.9 L (3.5-5.0) g/dL 01/09/22 Range/Units 06:52 RBC (3.80-5.40) m/uL Hgb (11.4-16.0) gm/dL Hct (34.0-46.0) % MCHC (31.0-37.0) g/dL RDW (11.5-15.5) % Plt Count (150-450) k/uL Chloride (98-107) mmol/L Carbon Dioxide (22-30) mmol/L BUN (7-17) mg/dL Glucose (74-99) mg/dL POC Glucose (mg/dL) 119 H (70-110) mg/dL AST (14-36) U/L ALT (4-34) U/L Albumin (3.5-5.0) g/dL - Imaging and Cardiology Chest x-ray: report reviewed, image reviewed Assessment and Plan Assessment: 1. Coronary artery disease with left main disease, status post three-vessel CABG 2. History of hypertension 3. Current ongoing tobacco dependence 4. Mild COPD, preoperative FEV1 was 73% of predicted 5. Daily EtOH use (1 pint per day of liquor) 6. Occasional marijuana and cocaine use (UDS was positive for cocaine on admission) 7. Hepatitis C 8. CVA 20 years ago 9. Solitary kidney. 10. Postoperative acute blood loss anemia and thrombocytopenia, expected 11. Suspected alcohol/drug withdrawal with thoracoabdominal dyssynchrony breathing pattern, respiratory compromise and stridor requiring reintubation, extubated 01/06/2022 12. Leukocytosis, likely secondary to the dexamethasone, remains afebrile, resolved Plan: 1. Continue aspirin, statin, Plavix, Norvasc, and beta briana. We will increase metoprolol tartrate as tolerated. 2. Wean oxygen as tolerated to maintain oxygen saturations greater than or equa l to 92%. 3. Bronchodilator management per pulmonary/critical care medicine. 4. Will monitor daily labs and chest x-rays. Electrolyte replacement per protocol. 5. GI/DVT prophylaxis. 6. Pain control current medication regimen. Dilaudid discontinued. 7. Continue Seroquel 100 mg by mouth twice a day. 8. Insulin management per primary care services. Patient is not diabetic, preoperative hemoglobin A1c 5.4%. Currently on before meals and at bedtime Accu-Cheks. 9. Patient counseled preoperatively and will continue to be counseled throughout her stay that she should refrain from smoking, drinking, using illicit drugs. 10. Continue to record strict and accurate intake and output. Daily weights. 11. Lasix 40 mg IV 1 now per pulmonary/critical care medicine recommendations. 12. Keep atrial and ventricular epicardial pacemaker wires in place and grounded. We will remove her epicardial pacemaker wires tomorrow 01/10/2022. 13. Encourage use of her incentive spirometry 10 times every hour while awake. 14. Cefepime has been discontinued by pulmonary medicine. 15. Dr. Avery has been consulted for inpatient rehab evaluation. 16. Increase activity as tolerated. Out of bed for all meals. Cardiac rehab/PT/OT following. 17. Dulcolax suppository 1 today. 18. Venous CO2 is 17 today which is a trend down, she has been started on sodium bicarbonate tablets 650 mg by mouth twice a day. 19. More recommendations to follow based on patient's clinical course. Time with Patient: Greater than 30
--- NOTE | 2022-01-09 10:26 | P.PN ---
Subjective Progress Note Date: 01/09/22 Principal diagnosis: POD#18 coronary artery bypass grafting 3 vessels, left internal mammary artery to the left anterior descending artery, a reverse saphenous vein graft to the o btuse marginal coronary artery, a reverse saphenous vein graft to the posterior descending coronary artery, endoscopic harvesting of the left greater saphenous vein, ligation of the left atrial appendage using a 35 mm AtriClip, epi-aortic ultrasound and intraoperative transesophageal echocardiogram On 01/03/2022 patient seen in follow-up in intensive care unit, yesterday patient was again weaned and extubated from the mechanical ventilator however she again quickly field, partially because of Stridor, her pulmonary secretions were reportedly improved at the time. Patient was reintubated and placed on mechanical ventilator, this morning she is on assist-control mode of ventilation with a rate of 20, tidal vital 375, FiO2 40% and PEEP of 5, this morning's blood gas shows pO2 of 150, pCO2 43, pH of 7.38. Chest x-ray showing bilateral small pleural effusions, and left lower lung pulmonary atelectasis. Per respiratory therapy patient continues to have quite significant amount of secretions from the ET tube, although the amount and color seem to have improved some. Patient is currently sedated on Diprivan at 35 mics per kilo per minute, and she is waking up and following simple commands, she is on fentanyl infusion at 0.5 mics per kilo per minute, and 0.9 normal saline at a rate of 20 ML per hour, she is tolerating tube feedings with vital HP at a rate of 50 with a goal of 50. She is in sinus mechanism at a rate of 98 BPM. Her Sanford-Pamela catheter has been discontinued. Mediastinal and right and left pleural chest tubes have been discontinued a few days ago. Patient continues on cefepime, and vancomycin. Sputum culture was positive for Streptococcus pneumonia and Corynebacterium stratum, and patient has been on cefepime and vancomycin. Patient has been receiving Lasix on a daily basis, and she was started on maintenance dose of IV Lasix 40 mg every 8 hours, and IV steroids with Solu-Medrol 60 mg every 6 hours. Patient underwent left-sided thoracentesis yesterday would removal of 250 mL of turbid blood-tinged fluid. The rest of today's lab 7 reviewed, showing white blood cell count of 12.9, hemoglobin is 6.6, platelet count of 617. Chloride was 1:15, the rest of the electrolytes were unremarkable, BUN is 26 and creatinine 0.64. Patient is waking up and following simple commands, she has however become aggressive, she is trying to talk to us. She is still producing moderate amount of yellow colored phlegm which is drainage engineer in color. She's been afebrile overnight, hold for surgical incisions are clean dry and intact, abdomen is soft, she is tolerating tube feedings. Reevaluated today on01/04/22, patient remains in the ICU, intubated mechanically ventilated. Assist control rate of 20 to follow 375 FiO2 40% PEEP of 5. ABG showed a pO2 of 89 pCO2 of 39 pH of 7.41. Remains on propofol at 35 mcg/kg/m, and she is on fentanyl at 0.5 mcg/kg/h. Patient is not requiring any pressors. She is on vital HP as 59 mL per hour. Her sodium is climbing up, and I'm recommending free water to be given via orogastric tube at 200 mL 4 times a day. And I am planning to switch the Solu-Medrol to Decadron for presumptive stridor postextubation although there is no clear history whether the patient did develop stridor or she had difficulty coping with her secretions at any rate patient was extubated and reintubated 3 times already, and I have a very strong feeling that she will continue to fail extubation, and most likely the patient will require eventually tracheostomy and PEG tube placement. Chest x-ray today showed mostly atelectasis, and possibly cardiomegaly and small bilateral effusions. patient is sedated, but arousable, in spite of being on fentanyl and on propofol. WBC count is 12.8 hemoglobin is 6.5, there is quite a bit of reluctance from cardiac surgery to transfer the patient. Metabolic profile seems to be relatively unremarkable. Renal profile is normal Reevaluated today on 01/05/22, patient remains in the ICU, intubated and mechanically ventilated. She is on assist control rate of 20, volume 375 FiO2 40% PEEP of 5. ABG showed a pO2 of 92 pCO2 41 pH of 7.37. Patient is on propofol at 15 mcg/kg/m and she is on fentanyl at 0.5 mcg/kg per hour. IV fluid is at KVO. Patient is arousable but remains lethargic as she still requiring sedation. I did give the patient a trial today of pressure support of 8 and CPAP, however apparently off sedation the patient became agitated, she had significant amount of and she pulled out her nasogastric tube. As I recommended that we go back on sedation, and she is not quite ready for weaning mostly because of significant secretions noted by respiratory therapist. Chest x-ray is basically unchanged, continues to show bilateral basilar opacities, patient had small pleural effusions, she had thoracentesis a few days ago by Dr. Padilla, and he was able to remove 250 mL at best. WBC count is 15 hemoglobin is 6.7 basic metabolic profile is relatively unremarkable, continues to have elevated sodium of 146. Reevaluated today on 01/06/2022 patient remains in the ICU intubated and mechanically ventilated. Her vent settings are basically the same, patient is on assist control rate of 20, volume to 75 FiO2 40%. and PEEP of 5, patient is basically about the same compared to the last few days. Her ABG showed a pO2 of 69 pCO2 40 pH of 7.38. She is on propofol at 60 and fentanyl at 0.5 mcg/kg/h. IV fluids at KVO. Today I recommended bronchoscopy since the patient seems to fail weaning mostly because of secretions, however I didn't examine the patient today, bronchoscopy was done, no evidence of significant secretions noted in the airways. Minimal whitish secretions were suctioned easily, patient did not require lavage of the lungs hence my plan is to place the patient back on a pressure support mode of mechanical ventilation, pressure support of 10 and CPA P, and possibly extubate the patient to BiPAP later today. Chest x-ray has shown improvement in her bilateral opacities and pleural effusions hence I believe this is a window to consider weaning on this patient Reevaluated today on 01/07/2022, patient remains in the ICU, however she was extubated yesterday uneventfully, she was initially extubated to BiPAP, she is now on 4 L nasal cannula, patient is sitting at a bedside chair, still having fentanyl infusion which I have discontinued today, he could receive Dilaudid when necessary for pain or discomfort. Patient will be off Decadron, and she remains on antibiotics, chest x-ray showing significant improvement. And yesterday bronchoscopy was basically unremarkable. No evidence of significant secretions noted during the bronchoscopy. WBC count is 18.9 hemoglobin is 9.3. Basic metabolic profile is normal. Renal profile is normal. Chest x-ray is showing cardiomegaly, and hypoventilatory changes very minimal pulmonary congestion Reevaluated today on 01/08/22, remains in the ICU, patient became quite agitated last night, and she was becoming restless, I recommended a trial of Precedex drip, and she received 1 dose of Dilaudid. Patient calmed down nicely, today she is off Precedex, she seems to be doing fairly well, not in any distress, she is on 4 L nasal cannula. And her O2 sats is 97%. Achieving 1500 mL and her incentive spirometer. He is in sinus rhythm, rate of 62 bpm, hemodynamically stable, not requiring any inotropes or any pressors. Her urine output is good. Chest x-ray is basically unremarkable, minimal pulmonary vascular congestion noted. And basilar atelectasis. WBC count is 14.4 hemoglobin 8.5. Elect rolytes are normal, BUN is 21 creatinine 0.65. Reevaluated today on 01/09/2022, patient remains in the ICU, sitting at a bedside chair, awake, alert oriented 3, does not seem to be in any distress. Remains on 2 L nasal cannula, she is doing well and better with incentive spirometry, achieving 1250 mL per effort. Patient was also able to ambulate with assistance in the hallway. Patient had to be assisted by 2 nurses. She is tolerating the walking well, patient is doing better than expected considering her prolonged hospital stay, and her multiple attempts of weaning and extubation and she failed extubation 3 times. She was extubated 3 days ago, and she tolerated the extubation well since the . WBC count is 8.6 hemoglobin is 8.7 and electrolytes are normal except bicarb is low at 17, and I suggested adding bicarb orally twice a day renal profile is normal chest x-ray showed small left- sided pleural effusion, and slight pulmonary vascular congestion. Patient is receiving Lasix This morning Objective - Vital Signs Vital signs: Vital Signs Temp 97.5 F L 01/09/22 08:00 Pulse 73 01/09/22 09:00 Resp 20 01/09/22 09:00 BP 129/62 01/09/22 09:00 Pulse Ox 93 L 01/09/22 09:00 FiO2 3 01/08/22 00:00 Intake & Output 01/08/22 01/09/22 01/09/22 18:59 06:59 18:59 Intake Total 1000 180 140 Output Total 800 1260 0 Balance 200 -1080 140 Weight 70.5 kg Intake: IV 400 180 140 0.9 @ 20 200 180 40 Cefepime 2 gm In Sodium 200 100 Chloride 0.9% 100 ml @ 25 mls/hr IVPB Q8H [facility] Rx#: [id number] Oral 600 Output: Urine 800 1260 0 Other: Voiding Method Bedside Commode Bedside Commode Bedside Commode # Voids 1 0 ABP, PAP, CO, CI - Last Documented Arterial Blood Pressure 174/171 Pulmonary Artery Pressure 34/8 Cardiac Output 4.8 Cardiac Index 2.7 - Exam Physical Exam: Revealed 66-year-old female sitting at a bedside chair, on 2 L nasal cannula, in no distress. Head: Atraumatic, normocephalic. HEENT:[Neck is supple.] [No neck masses.] [No thyromegaly.] [No JVD.] Chest: Symmetrical chest expansion, fine crackles at the bases. Cardiac Exam: Distant S1 and S2, no S3 gallop. Abdomen: [Soft, nontender, no megaly, no rebound, no guarding, normal bowel sounds.] Extremities: [No clubbing, trace of bipedal edema, no cyanosis.] Right brachial arterial line is noted. Neurological Exam: Grossly intact, alert oriented 3, no gross deficits. Psychiatric: Normal mood affect and seems to have normal mental status. Skin: No rashes. - Labs CBC & Chem 7: 01/09/22 05:41 01/09/22 05:41 Labs: Abnormal Lab Results - Last 24 Hours (Table) 01/09/22 01/09/22 01/09/22 Range/Units 05:41 05:41 05:46 RBC 3.25 L (3.80-5.40) m/uL Hgb 8.7 L (11.4-16.0) gm/dL Hct 28.7 L (34.0-46.0) % MCHC 30.4 L (31.0-37.0) g/dL RDW 20.1 H (11.5-15.5) % Plt Count 534 H (150-450) k/uL Chloride 113 H (98-107) mmol/L Carbon Dioxide 17 L (22-30) mmol/L BUN 19 H (7-17) mg/dL Glucose 112 H (74-99) mg/dL POC Glucose (mg/dL) 113 H (70-110) mg/dL AST 41 H (14-36) U/L ALT 53 H (4-34) U/L Albumin 2.9 L (3.5-5.0) g/dL 01/09/22 Range/Units 06:52 RBC (3.80-5.40) m/uL Hgb (11.4-16.0) gm/dL Hct (34.0-46.0) % MCHC (31.0-37.0) g/dL RDW (11.5-15.5) % Plt Count (150-450) k/uL Chloride (98-107) mmol/L Carbon Dioxide (22-30) mmol/L BUN (7-17) mg/dL Glucose (74-99) mg/dL POC Glucose (mg/dL) 119 H (70-110) mg/dL AST (14-36) U/L ALT (4-34) U/L Albumin (3.5-5.0) g/dL Assessment and Plan Assessment: Impression: Coronary artery disease status post three-vessel CABG, postoperative day #18 Failure to wean and extubate, patient failed weaning 3 times, patient was extubated on 01/06 and tolerated the fourth extubation well so far. Mild COPD, FEV1 is normally 73%. Tobacco dependence syndrome. History of alcoholism. Patient drinks on the average of 1 pint per day of liquor. History of hepatitis C. Status post left-sided thoracentesis on 01/02/22, however no more than 2 50 mL of fluid was drained. Postoperative blood loss anemia, expected history of CVA. History of depression. History of substance abuse including cocaine and alcohol and marijuana. History of nephrectomy. Patient has 1 solitary kidney. Status post bronchoscopy for airways evaluation done on 01/06/2022 prior to weaning and extubation which has been successful on 01/06 Recommendation: Continue to monitor in the ICU Continue oxygen, titrate accordingly Oral bicarb was added for her metabolic acidosis Continue incentive spirometry Continue bronchodilators. Ambulation.. Continue GI and DVT prophylaxis. Patient should be seen by drug abuse social worker for rehabilitation placement. Patient had a relatively prolonged hospital stay, and she generally weak, will need rehabilitation for certain. We will continue to follow. Time with Patient: Less than 30
[2022-01-09] MEDS: bisacodyL 10 MG SUPP RECTAL PRN (10:49)
[2022-01-09] MEDS: SODIUM BICARBONATE TAB 650 MG TAB PO SCH ×2 (10:49→20:41)
[2022-01-09 11:43] LABS: Glucose,Whole Blood 99 mg/dL (70-110)
[2022-01-09] MEDS: ACETAMINOPHEN TAB 500 MG TAB PO PRN ×2 (12:36→20:41)
[2022-01-09] MEDS: amLODIPine 10 MG TAB PO SCH (12:36)
[2022-01-09] MEDS ORDERED: HYDROmorphone 0.5 MG/0.5 ML SYRINGE IVP STA (16:31)
[2022-01-09 16:40] LABS: Glucose,Whole Blood 115 mg/dL (70-110)
[2022-01-09] MEDS: SENNOSIDES-DOCUSATE SODIUM 1 EACH TAB PO SCH (20:41)
[2022-01-09 20:49] LABS: Glucose,Whole Blood 121 mg/dL (70-110)
[2022-01-10] MEDS: HEPARIN SODIUM,PORCINE/PF 5,000 UNIT/0.5 ML SYRINGE SQ SCH ×3 (00:05→18:39)
[2022-01-10] MEDS: LORazepam 0.5 MG TAB PO PRN (00:11)
--- NOTE | 2022-01-10 05:28 | P.CONS ---
History of Present Illness - Chief Complaint Cardiac debility - History of Present Illness I had the opportunity to see patient for inpatient rehab consultation with regard to cardiac debility. Patient admitted to Dr. Moura December 21 for elective CABG 3 vessel. Seen in ICU for care by Dr. Thornton. Also seen by cardiology, Dr. NINO Foreman. Chest x-rays followed for congestive mild cardiomegaly. Chest ultrasound done. Has started therapy. PT reports two-person minimal assistance for bed mobility and transfer and 3-4 person minimal assist for gait 120 feet but with 5 rest. OT reports independent with feeding, moderate assistance for grooming and upper dressing, total assistance for lower dressing and toileting and maximal assistance for bathing. 2 person maximal assistance functional debility and transfer. Previous functional history as elicited from patient: Patient is a distrustful historian and nurse reports patient has been pulling and removing lines overnight which is unusual for her. 66-year-old right-handed female who may be and unemployed. Daughter lives out of state. Review of Systems Review of systems: ENT: Denies sneezes or discharge. Eyes: Denies discharge or photophobia. Cardiac: Denies chest pain or palpitation. Pulmonary: Denies cough or shortness of breath. Breast: Denies discharge or lumps. Gastrointestinal: Denies nausea, emesis, constipation, diarrhea. Genitourinary: Denies discharge or frequency. Musculoskeletal: Denies muscle or bone aches. Neurologic: Confusion. Endocrine: Denies shakes or sweats. Oncology: Denies cancers. Dermatologic: Denies rash, itching, pruritus. ALLERGY/immunology: Denies sneezes, rashes. Past Medical History Past Medical History: Asthma, Coronary Artery Disease (CAD), Chest Pain / Angina, COPD, CVA/TIA, Hyperlipidemia, Hypertension, Liver Disease, Rheumatoid Arthritis (RA) Additional Past Medical History / Comment(s): SOB w/exertion, hx. Hepatitis C, couple TIA's in past, only has 1 kidney, other kidney non-functioning History of Any Multi-Drug Resistant Organisms: None Reported Past Surgical History: Cholecystectomy, Heart Catheterization Additional Past Surgical History / Comment(s): surg. for kidney stones; right nephrectomy Past Anesthesia/Blood Transfusion Reactions: No Reported Reaction Smoking Status: Current every day smoker - Past Family History Mother Family Medical History: Liver Disease Additional Family Medical History / Comment(s): Mother of liver disease Medications and Allergies Home Medications Medication Instructions Recorded Confirmed Type Albuterol Sulfate [Proair Hfa] 1 - 2 puff INHALATION Q6HR PRN 12/07/21 12/17/21 History Aspirin 81 mg PO DAILY 12/07/21 12/21/21 History Diltiazem Cd [Cardizem CD] 180 mg PO DAILY 12/07/21 12/21/21 History FLUoxetine HCL [PROzac] 20 mg PO DAILY 12/07/21 12/21/21 History LORazepam [Ativan] 0.5 mg PO BID PRN 12/07/21 12/21/21 History Meloxicam [Mobic] 7.5 mg PO DAILY 12/07/21 12/21/21 History Metoprolol Succinate (ER) [Toprol 25 mg PO DAILY 12/07/21 12/21/21 History Xl] Nitroglycerin Sl Tabs [Nitrostat] 0.4 mg SUBLINGUAL Q5M PRN 12/07/21 12/17/21 History traZODone HCL [Desyrel] 100 mg PO HS 12/07/21 12/21/21 History Allergies Allergy/AdvReac Type Severity Reaction Status Date / Time pentazocine [From [facility]] Allergy Nausea & Verified 12/21/21 05:51 Vomiting Physical Exam Vitals: Vital Signs Temp Pulse Resp BP Pulse Ox FiO2 01/10/22 04:00 80 17 133/69 98 01/10/22 03:00 90 15 134/68 95 01/10/22 02:00 105 H 12 133/65 32 L 01/10/22 01:00 92 21 127/70 88 L 01/10/22 00:00 98.1 F 10 L 132/71 100 01/09/22 23:00 23 103/59 97 01/09/22 22:05 82 14 103/59 98 01/09/22 22:00 80 24 135/72 97 01/09/22 21:00 93 10 L 143/70 96 01/09/22 20:00 98.3 F 90 21 123/63 96 01/09/22 19:39 79 01/09/22 19:24 79 01/09/22 19:00 85 20 103/64 99 01/09/22 18:00 89 27 H 119/57 97 01/09/22 17:00 73 12 121/61 92 L 01/09/22 16:00 98.1 F 81 14 114/81 93 L 01/09/22 15:00 80 26 H 111/67 95 01/09/22 14:00 72 12 114/57 94 L 01/09/22 13:00 73 14 95 01/09/22 12:00 98.2 F 79 20 122/57 94 L 4 01/09/22 11:00 77 14 97/56 96 01/09/22 10:00 74 22 119/61 97 01/09/22 09:00 73 20 129/62 93 L 01/09/22 08:00 97.5 F L 79 21 137/67 96 01/09/22 07:00 75 18 146/73 96 01/09/22 06:00 66 12 122/62 94 L Intake and Output 01/09/22 01/09/22 01/10/22 14:59 22:59 06:59 Intake Total 180 160 120 Output Total 300 1100 800 Balance -120 -940 -680 Intake: IV 180 160 120 0.9 @ 20 80 160 120 Cefepime 2 gm In Sodium 100 Chloride 0.9% 100 ml @ 25 mls/hr IVPB Q8H [facility] Rx#: [id number] Output: Urine 300 1100 800 Other: Voiding Method Bedside Commode Bedside Commode Bedside Commode # Voids 1 0 1 # Bowel Movements 1 1 1 Skin: Good color, texture, turgor. General: Medium build and comfortable appearance. Head: Normocephalic, atraumatic. Eyes: Symmetric. Pupils equal round. Ears: Symmetric. Hearing within normal limits. Mouth: Clear. Neck: Supple. Carotid without bruit. Cardiac: Regular rate and rhythm. Lungs: Clear anteriorly and posteriorly. Abdomen: Soft active nontender. Extremities: Normal tone. Neurological: Mental status: Confused, uncooperative. Cranial nerves: Symmetric facial tone and trapezius. Motor: Can actively moves all 4 limbs. Sensation: Intact throughout. DTRs: Symmetric and equal throughout. Mobility: Requires physical assist for bed mobility. Results CBC & Chem 7: 01/09/22 05:41 01/09/22 05:41 Labs: Abnormal Lab Results - Last 24 Hours (Table) 01/09/22 01/09/22 01/09/22 Range/Units 05:41 05:41 05:46 RBC 3.25 L (3.80-5.40) m/uL Hgb 8.7 L (11.4-16.0) gm/dL Hct 28.7 L (34.0-46.0) % MCHC 30.4 L (31.0-37.0) g/dL RDW 20.1 H (11.5-15.5) % Plt Count 534 H (150-450) k/uL Chloride 113 H (98-107) mmol/L Carbon Dioxide 17 L (22-30) mmol/L BUN 19 H (7-17) mg/dL Glucose 112 H (74-99) mg/dL POC Glucose (mg/dL) 113 H (70-110) mg/dL AST 41 H (14-36) U/L ALT 53 H (4-34) U/L Albumin 2.9 L (3.5-5.0) g/dL 01/09/22 01/09/22 01/09/22 Range/Units 06:52 16:29 20:47 RBC (3.80-5.40) m/uL Hgb (11.4-16.0) gm/dL Hct (34.0-46.0) % MCHC (31.0-37.0) g/dL RDW (11.5-15.5) % Plt Count (150-450) k/uL Chloride (98-107) mmol/L Carbon Dioxide (22-30) mmol/L BUN (7-17) mg/dL Glucose (74-99) mg/dL POC Glucose (mg/dL) 119 H 115 H 121 H (70-110) mg/dL AST (14-36) U/L ALT (4-34) U/L Albumin (3.5-5.0) g/dL Assessment and Plan (1) CAD (coronary artery disease) Current Visit: Yes Status: Acute Code(s): I25.10 - ATHSCL HEART DISEASE OF [place] CORONARY ARTERY W/O ANG PCTRS SNOMED Code(s): 99164745 (2) History of alcohol use Current Visit: Yes Status: Acute Code(s): Z87.898 - PERSONAL HISTORY OF OTHER SPECIFIED CONDITIONS SNOMED Code(s): 153997385 (3) Status post aorto-coronary artery bypass graft Current Visit: Yes Status: Acute Code(s): Z95.1 - PRESENCE OF AORTOCORONARY BYPASS GRAFT SNOMED Code(s): 006206078 Plan: Comments and plan: At this time my exam is seated significant for the confusion. We'll follow therapies disease if she is able to cooperate and benefit. Currently two-person assist for any functional mobility and would appear to require a lesser intensive rehab program. Should begin to consider SNF placement.
[2022-01-10] MEDS ORDERED: HYDROmorphone 1 MG/ML 1 ML SYRINGE IVP PRN (06:28)
[2022-01-10] MEDS ORDERED: DEXMEDETOMIDINE/0.9% NACL(PMX) 400 MCG in EMPTY BAG 1 BAG IV SCH (06:30)
[2022-01-10 06:37] LABS: Glucose,Whole Blood 105 mg/dL (70-110)
[2022-01-10] MEDS: FERROUS SULFATE 325 MG TAB PO SCH ×2 (06:39→16:38)
[2022-01-10] MEDS: PANTOPRAZOLE 40 MG TABLET PO SCH (06:40)
[2022-01-10] MEDS: THIAMINE 100 MG TAB PO SCH ×2 (06:40→18:14)
[2022-01-10] MEDS: INSULIN ASPART (NovoLOG) 100 UNIT/ML VIAL SQ SCH ×4 (06:54→20:16)
[2022-01-10] MEDS ORDERED: HYDROcodone/APAP 7.5-325MG 1 EACH TAB PO PRN (07:36)
[2022-01-10 07:58] LABS: Anisocytosis Slight; Basophils # (A) 0.1 k/uL (0-0.2); Basophils % (A) 1 %; Eosinophils # (A) 0.3 k/uL (0-0.7); Eosinophils % (A) 3 %; HCT 26.4 % (34.0-46.0); Hypochromasia Marked; Lymphocytes # (A) 1.6 k/uL (1.0-4.8); Lymphocytes % (A) 18 %; MCHC 30.4 g/dL (31.0-37.0); MCV 85.6 fL (80.0-100.0); Mean Platelet Volume 8.7; Microcytosis Slight; Monocytes # (A) 0.6 k/uL (0-1.0); Monocytes % (A) 7 %; Neutrophils % (A) 69 %; Platelet Count 475 k/uL (150-450); Poikilocytosis Moderate; RBC 3.08 m/uL (3.80-5.40); RDW 19.9 % (11.5-15.5); WBC 8.7 k/uL (3.8-10.6)
--- NOTE | 2022-01-10 08:08 | XR ---
EXAMINATION TYPE: XR chest 1V portable DATE OF EXAM: 01/10/2022 COMPARISON: X-ray dated 01/09/2022 HISTORY: Postoperative TECHNIQUE: Single frontal view of the chest is obtained. FINDINGS: Suboptimal x-ray with poor penetration. Persistent cardiomegaly, cardiac prosthesis and sternotomy wi re sutures. Linear pulmonary atelectasis, stable. No progressive consolidation. Persistent pulmonary vascular congestion. No gross pleural effusion or definite pneumothorax. Unchanged bony thoracic cage. IMPRESSION: Stable condition.
[2022-01-10 08:17] LABS: ALT 46 U/L (4-34); AST 39 U/L (14-36); African American GFR (CKD) >90 (>60 ml/min/1.73 sqM); Alkaline Phosphatase 57 U/L (38-126); Anion Gap 7 mmol/L; Blood Urea Nitrogen 13 mg/dL (7-17); Calcium 9.3 mg/dL (8.4-10.2); Carbon Dioxide 19 mmol/L (22-30); Chloride 112 mmol/L (98-107); Glucose 121 mg/dL (74-99); Non-African American GFR(CKD) >90 (>60 ml/min/1.73 sqM); Potassium 3.5 mmol/L (3.5-5.1); Sodium 138 mmol/L (137-145); Total Protein 6.3 g/dL (6.3-8.2)
[2022-01-10] MEDS: IPRATROPIUM-ALBUTEROL 3 ML NEB INHALATION SCH ×4 (09:00→20:29)
[2022-01-10] MEDS ORDERED: FUROSEMIDE 10 MG/ML 4 ML VIAL IV STA (09:19)
--- NOTE | 2022-01-10 09:32 | P.PN ---
Subjective Progress Note Date: 01/10/22 Principal diagnosis: Coronary artery disease with left main disease. Previous medical history of hypertension, current tobacco dependence with mild COPD, daily EtOH use (1 pint per day of liquor), occasional marijuana and cocaine use (UDS was positive for cocaine on admission), hepatitis C, CVA 20 years ago, solitary kidney. POD #19 coronary artery bypass grafting 3 vessels, left internal mammary artery to the left anterior descending artery, reverse saphenous vein graft to the obtuse marginal artery, reverse saphenous vein graft to the posterior descending artery, endoscopic harvesting of the left greater saphenous vein, ligation of the left atrial appendage using a 35 mm AtriClip, epi-aortic ultrasound and intraoperative transesophageal echocardiogram Postoperative acute blood loss anemia and thrombocytopenia, expected given hemodilution and cardiopulmonary bypass pump Suspected alcohol/drug withdrawal with thoracoabdominal dyssynchrony breathing pattern, reintubated per Dr. Thornton POD #4, bronchoscopy for airway evaluation prior to extubation, completed by Dr. Lopez The patient was seen and examined this morning sitting up in bed in the intensive care unit very agitated but oriented to person, place, time. She states her nurses trying to kill her, she is refusing to get out of bed, refusing to take oral medications. Does not complain of pain or shortness of breath at this time, however she was complaining of pain in the middle the night and IV Dilaudid was given. She did ambulate in the hallway yesterday with assistance. She was evaluated by Dr. Avery this morning for inpatient rehab, per his note she was felt to be better suited for [facility] at discharge. Objective - Vital Signs Vital signs: Vital Signs Temp 97.9 F 01/10/22 08:00 Pulse 77 01/10/22 09:00 Resp 20 01/10/22 09:00 BP 130/69 01/10/22 09:00 Pulse Ox 97 01/10/22 09:00 FiO2 4 01/09/22 12:00 Intake & Output 01/09/22 01/10/22 01/10/22 18:59 06:59 18:59 Intake Total 260 240 64.143 Output Total 950 1100 100 Balance -690 -860 -35.857 Intake: IV 260 240 60 0.9 @ 20 160 240 60 Cefepime 2 gm In Sodium 100 Chloride 0.9% 100 ml @ 25 mls/hr IVPB Q8H [facility] Rx#: [id number] Intake, IV Titration 4.143 Amount Dexmedetomidine/0.9% NaCl 4.143 (Pmx) 400 mcg In Empty Bag 1 bag @ 0.2 MCG/KG/HR 3.525 mls/hr IV .Q24H [facility] Rx#:[id number] Output: Urine 950 1100 100 Other: Voiding Method Bedside Commode Bedside Commode Bedside Commode Bedpan # Voids 0 1 # Bowel Movements 1 1 1 ABP, PAP, CO, CI - Last Documented Arterial Blood Pressure 174/171 Pulmonary Artery Pressure 34/8 Cardiac Output 4.8 Cardiac Index 2.7 - Exam CONSTITUTIONAL: Appears comfortable, uncooperative, no acute distress RESPIRATORY: Lungs sounds diminished bilaterally. Respirations even, nonlabored. Currently on room air with oxygen saturation 92%. CARDIOVASCULAR: S1, S2 present. Regular rate and rhythm, sinus rhythm on telemetry. Sternum stable. Palpable peripheral pulses bilaterally. No edema present. No calf pain or tenderness noted. Heart hugger, antiembolism stockings, SCDs present. GASTROINTESTINAL: Abdomen soft, nontender, nondistended. Active bowel sounds present 4 quadrants. Tolerating diet. Positive bowel movement 01/10 GENITOURINARY: Continues to void. Output 2050 mL in the last 24 hours INTEGUMENTARY: Skin is warm and dry with evidence of good perfusion. Anterior chest incision well approximated and covered with dry intact dressing. Left lower extremity EVH site well approximated without redness or drainage. NEUROLOGIC: Cranial nerves II through XII intact MUSKULOSKELETAL: Able to move all extremities, strength equal bilaterally PSYCHIATRIC: Alert and oriented to person place and time, agitated INVASIVE LINES AND TUBES: A/V epicardial pacemaker wires present, grounded - Allied health notes Allied health notes reviewed: nursing - Labs CBC & Chem 7: 01/10/22 07:34 01/10/22 07:34 Labs: Abnormal Lab Results - Last 24 Hours (Table) 01/09/22 01/09/22 01/10/22 Range/Units 16:29 20:47 07:34 RBC 3.08 L (3.80-5.40) m/uL Hgb 8.0 L (11.4-16.0) gm/dL Hct 26.4 L (34.0-46.0) % MCHC 30.4 L (31.0-37.0) g/dL RDW 19.9 H (11.5-15.5) % Plt Count 475 H (150-450) k/uL Chloride (98-107) mmol/L Carbon Dioxide (22-30) mmol/L Glucose (74-99) mg/dL POC Glucose (mg/dL) 115 H 121 H (70-110) mg/dL AST (14-36) U/L ALT (4-34) U/L Albumin (3.5-5.0) g/dL 01/10/22 Range/Units 07:34 RBC (3.80-5.40) m/uL Hgb (11.4-16.0) gm/dL Hct (34.0-46.0) % MCHC (31.0-37.0) g/dL RDW (11.5-15.5) % Plt Count (150-450) k/uL Chloride 112 H (98-107) mmol/L Carbon Dioxide 19 L (22-30) mmol/L Glucose 121 H (74-99) mg/dL POC Glucose (mg/dL) (70-110) mg/dL AST 39 H (14-36) U/L ALT 46 H (4-34) U/L Albumin 3.0 L (3.5-5.0) g/dL - Imaging and Cardiology Chest x-ray: report reviewed, image reviewed Assessment and Plan Assessment: 1. Coronary artery disease with left main disease, status post three-vessel CABG 2. History of hypertension, currently hypotensive on levo 3. Current tobacco dependence 4. Mild COPD, preoperative FEV1 was 73% of predicted 5. Daily EtOH use (1 pint per day of liquor) 6. Occasional marijuana and cocaine use (UDS was positive for cocaine on admission) 7. Hepatitis C 8. CVA 20 years ago 9. Solitary kidney. 10. Postoperative acute blood loss anemia and thrombocytopenia, expected 11. Suspected alcohol/drug withdrawal with thoracoabdominal dyssynchrony breathing pattern, reintubated per Dr. Thornton Plan: 1. Continue aspirin, statin, Plavix, Norvasc, beta briana therapy. Will increase beta briana therapy as tolerated. 2. Wean O2 as tolerated. Encourage incentive spirometry use 10 times every hour while awake. Bronchodilators per pulmonology 3. Will monitor daily labs and x-rays. Electrolyte replacement per protocol. We'll give IV Lasix 40 mg today 4. GI/DVT prophylaxis 5. Pain control current medication regimen, discontinued Dilaudid, oral [place] added 6. Discontinue Precedex. Haldol ordered by pulmonology. Continue Seroquel 7. Insulin management per primary care services. Patient is not diabetic, preoperative hemoglobin A1c 5.4% 8. Patient counseled preoperatively and will continue to be counseled throughout her stay that she should refrain from smoking, drinking, using illicit drugs 9. Strict accurate intake and output. Daily weights 10. Increase activity as tolerated. Patient should be out of bed for all meals. PT/OT/cardiac rehab following 11. Discharge planning in progress. Anticipate discharge to [facility] when bed available and insurance authorization obtained 12. More recommendations to follow
[2022-01-10] MEDS: HALOPERIDOL LACTATE 5 MG/ML 1 ML VIAL IM PRN ×2 (09:33→18:39)
--- NOTE | 2022-01-10 10:07 | P.PN ---
Subjective Progress Note Date: 01/10/22 Principal diagnosis: Status post bypass surgery. Reevaluated today on 01/08/22, remains in the ICU, patient became quite agitated last night, and she was becoming restless, I recommended a trial of Precedex drip, and she received 1 dose of Dilaudid. Patient calmed down nicely, today she is off Precedex, she seems to be doing fairly well, not in any distress, she is on 4 L nasal cannula. And her O2 sats is 97%. Achieving 1500 mL and her incentive spirometer. He is in sinus rhythm, rate of 62 bpm, hemodynamically stable, not requiring any inotropes or any pressors. Her urine output is good. Chest x-ray is basically unremarkable, minimal pulmonary vascular congestion n oted. And basilar atelectasis. WBC count is 14.4 hemoglobin 8.5. Electrolytes are normal, BUN is 21 creatinine 0.65. Reevaluated today on 01/09/2022, patient remains in the ICU, sitting at a bedside chair, awake, alert oriented 3, does not seem to be in any distress. Remains on 2 L nasal cannula, she is doing well and better with incentive spirometry, achieving 1250 mL per effort. Patient was also able to ambulate with assistance in the hallway. Patient had to be assisted by 2 nurses. She is tolerating the walking well, patient is doing better than expected considering her prolonged ho spital stay, and her multiple attempts of weaning and extubation and she failed extubation 3 times. She was extubated 3 days ago, and she tolerated the extubation well since the . WBC count is 8.6 hemoglobin is 8.7 and electrolytes are normal except bicarb is low at 17, and I suggested adding bicarb orally twice a day renal profile is normal chest x-ray showed small left- sided pleural effusion, and slight pulmonary vascular congestion. Patient is receiving Lasix This morning Progress note dated 01/10/2022. 66-year-old white female, who was admitted back on December 21, and had a three-vess el bypass surgery on December 21. Today's postop day #20. She's currently on 3 L nasal cannula. She's currently on dexmedetomidine at 0.3 mcg/kg/h. Getting saline at 20 mL an hour. Unfortunately, the patient has been intubated and extubated 3 times. Initially, she was intubated for surgery on December 21, and was extubated the next day on December 22. She was reintubated on December 25 and extubated on December 31, and then reintubated again on December 31, and extubated from the last time on January 02. Today, we will add some Haldol to her regimen. White count is 8.7, hemoglobin 8, hematocrit 26.4, and platelet count 475,000. Sodium 138, potassium 3.5, chlorides 112, CO2 19, anion gap 7, BUN 13, creatinine 0.61. A sputum from December 29 showed Streptococcus pneumoniae. Chest x-ray shows bibasilar atelectasis. Objective - Vital Signs Vital signs: Vital Signs Temp 97.9 F 01/10/22 08:00 Pulse 77 01/10/22 09:00 Resp 20 01/10/22 09:00 BP 130/69 01/10/22 09:00 Pulse Ox 97 01/10/22 09:00 FiO2 4 01/09/22 12:00 Intake & Output 01/09/22 01/10/22 01/10/22 18:59 06:59 18:59 Intake Total 260 240 64.143 Output Total 950 1100 100 Balance -690 -860 -35.857 Intake: IV 260 240 60 0.9 @ 20 160 240 60 Cefepime 2 gm In Sodium 100 Chloride 0.9% 100 ml @ 25 mls/hr IVPB Q8H [facility] Rx#: [id number] Intake, IV Titration 4.143 Amount Dexmedetomidine/0.9% NaCl 4.143 (Pmx) 400 mcg In Empty Bag 1 bag @ 0.2 MCG/KG/HR 3.525 mls/hr IV .Q24H [facility] Rx#:[id number] Output: Urine 950 1100 100 Other: Voiding Method Bedside Commode Bedside Commode Bedside Commode Bedpan # Voids 0 1 # Bowel Movements 1 1 1 ABP, PAP, CO, CI - Last Documented Arterial Blood Pressure 174/171 Pulmonary Artery Pressure 34/8 Cardiac Output 4.8 Cardiac Index 2.7 - Exam No acute distress, sedated, on 3 L nasal cannula. No respiratory distress. HEENT examination is grossly unremarkable. Neck supple. Full range of motion. No adenopathy thyromegaly or neck vein distention. Cardiovascular examination reveals regular rhythm rate. S1-S2 normal. No S3 or S4. No discernible murmur noted. Heart rate 77 bpm. Lungs reveal mostly clear breath sounds. Mild scattered rhonchi. No wheezes or crackles. Saturations are 97% on 3 L. Abdomen soft bowel sounds are heard. No masses or tenderness. Extremities are intact. No cyanosis clubbing or edema. Skin is without rash or lesion. Neurologic examination is difficult to assess while on dexmedetomidine. - Labs CBC & Chem 7: 01/10/22 07:34 01/10/22 07:34 Labs: Abnormal Lab Results - Last 24 Hours (Table) 01/09/22 01/09/22 01/10/22 Range/Units 16:29 20:47 07:34 RBC 3.08 L (3.80-5.40) m/uL Hgb 8.0 L (11.4-16.0) gm/dL Hct 26.4 L (34.0-46.0) % MCHC 30.4 L (31.0-37.0) g/dL RDW 19.9 H (11.5-15.5) % Plt Count 475 H (150-450) k/uL Chloride (98-107) mmol/L Carbon Dioxide (22-30) mmol/L Glucose (74-99) mg/dL POC Glucose (mg/dL) 115 H 121 H (70-110) mg/dL AST (14-36) U/L ALT (4-34) U/L Albumin (3.5-5.0) g/dL 01/10/22 Range/Units 07:34 RBC (3.80-5.40) m/uL Hgb (11.4-16.0) gm/dL Hct (34.0-46.0) % MCHC (31.0-37.0) g/dL RDW (11.5-15.5) % Plt Count (150-450) k/uL Chloride 112 H (98-107) mmol/L Carbon Dioxide 19 L (22-30) mmol/L Glucose 121 H (74-99) mg/dL POC Glucose (mg/dL) (70-110) mg/dL AST 39 H (14-36) U/L ALT 46 H (4-34) U/L Albumin 3.0 L (3.5-5.0) g/dL Assessment and Plan Assessment: Status post three-vessel bypass grafting, postop day #20. Status post intubation and mechanical ventilation with subsequent extubation 3. Moderate COPD, with an FEV1 that's 73% of predicted. Tobacco dependence syndrome. History of alcoholism. History of hepatitis C. History of left-sided thoracentesis for left pleural effusion, on January 02. Postoperative blood loss anemia. History of depression. History of substance abuse, including cocaine, alcohol, and marijuana. History of nephrectomy. Status post bronchoscopy on January 06. Plan: Plan dated 01/10/2022. We will attempt to wean the patient off of dexmedetomidine, and is said, treat her with Haldol IM. I gave an order to diffuse Haldol 48 mg IM, every 4 hours when necessary. The patient is also on Seroquel, and is also on some narcotic, as well as Ativan. We'll continue to follow and make recommendations where appropriate. Hopefully, the patient can be placed soon. She's been in the hospital since December 21. Prognosis is guarded. Time with Patient: Less than 30
[2022-01-10] MEDS: MULTIVITAMINS, THERA 1 EACH TAB PO SCH (10:14)
[2022-01-10] MEDS: ASCORBIC ACID 500 MG TAB PO SCH ×2 (10:14→20:25)
[2022-01-10] MEDS: QUEtiapine 100 MG TAB PO SCH ×2 (10:55→20:24)
[2022-01-10] MEDS: HYDROcodone/APAP 7.5-325MG 1 EACH TAB PO PRN (10:55)
[2022-01-10] MEDS: FLUoxetine HCL 20 MG CAP PO SCH (10:55)
[2022-01-10 11:24] LABS: Glucose,Whole Blood 106 mg/dL (70-110)
[2022-01-10] MEDS: CLOPIDOGREL 75 MG TAB PO SCH (12:08)
[2022-01-10] MEDS: METOPROLOL TARTRATE 50 MG TAB PO SCH ×2 (12:08→20:24)
[2022-01-10 13:58] VITALS: BMI 26.6
[2022-01-10] MEDS: SODIUM BICARBONATE TAB 650 MG TAB PO SCH ×3 (16:16→20:24)
[2022-01-10] MEDS: ASPIRIN 81 MG PO SCH (16:16)
[2022-01-10] MEDS: amLODIPine 10 MG TAB PO SCH (16:16)
[2022-01-10] MEDS: ATORVASTATIN 40 MG TAB PO SCH ×2 (16:17→16:39)
[2022-01-10 16:38] LABS: Glucose,Whole Blood 71 mg/dL (70-110)
[2022-01-10 20:02] LABS: Glucose,Whole Blood 127 mg/dL (70-110)
[2022-01-10] MEDS: SENNOSIDES-DOCUSATE SODIUM 1 EACH TAB PO SCH (20:24)
[2022-01-11] MEDS: HEPARIN SODIUM,PORCINE/PF 5,000 UNIT/0.5 ML SYRINGE SQ SCH ×3 (00:36→17:22)
[2022-01-11] MEDS: ACETAMINOPHEN TAB 500 MG TAB PO PRN (05:29)
[2022-01-11 06:38] LABS: Glucose,Whole Blood 169 mg/dL (70-110)
[2022-01-11] MEDS: FERROUS SULFATE 325 MG TAB PO SCH ×2 (06:43→17:22)
[2022-01-11] MEDS: PANTOPRAZOLE 40 MG TABLET PO SCH (06:43)
[2022-01-11] MEDS: INSULIN ASPART (NovoLOG) 100 UNIT/ML VIAL SQ SCH ×4 (06:44→21:38)
--- NOTE | 2022-01-11 06:47 | P.PN ---
Subjective Progress Note Date: 01/11/22 Principal diagnosis: Status post bypass surgery. Reevaluated today on 01/08/22, remains in the ICU, patient became quite agitated last night, and she was becoming restless, I recommended a trial of Precedex drip, and she received 1 dose of Dilaudid. Patient calmed down nicely, today she is off Precedex, she seems to be doing fairly well, not in any distress, she is on 4 L nasal cannula. And her O2 sats is 97%. Achieving 1500 mL and her incentive spirometer. He is in sinus rhythm, rate of 62 bpm, hemodynamically stable, not requiring any inotropes or any pressors. Her urine output is good. Chest x-ray is basically unremarkable, minimal pulmonary vascular congestion n oted. And basilar atelectasis. WBC count is 14.4 hemoglobin 8.5. Electrolytes are normal, BUN is 21 creatinine 0.65. Reevaluated today on 01/09/2022, patient remains in the ICU, sitting at a bedside chair, awake, alert oriented 3, does not seem to be in any distress. Remains on 2 L nasal cannula, she is doing well and better with incentive spirometry, achieving 1250 mL per effort. Patient was also able to ambulate with assistance in the hallway. Patient had to be assisted by 2 nurses. She is tolerating the walking well, patient is doing better than expected considering her prolonged ho spital stay, and her multiple attempts of weaning and extubation and she failed extubation 3 times. She was extubated 3 days ago, and she tolerated the extubation well since the . WBC count is 8.6 hemoglobin is 8.7 and electrolytes are normal except bicarb is low at 17, and I suggested adding bicarb orally twice a day renal profile is normal chest x-ray showed small left- sided pleural effusion, and slight pulmonary vascular congestion. Patient is receiving Lasix This morning Progress note dated 01/10/2022. 66-year-old white female, who was admitted back on December 21, and had a three-vess el bypass surgery on December 21. Today's postop day #20. She's currently on 3 L nasal cannula. She's currently on dexmedetomidine at 0.3 mcg/kg/h. Getting saline at 20 mL an hour. Unfortunately, the patient has been intubated and extubated 3 times. Initially, she was intubated for surgery on December 21, and was extubated the next day on December 22. She was reintubated on December 25 and extubated on December 31, and then reintubated again on December 31, and extubated from the last time on January 02. Today, we will add some Haldol to her regimen. White count is 8.7, hemoglobin 8, hematocrit 26.4, and platelet count 475,000. Sodium 138, potassium 3.5, chlorides 112, CO2 19, anion gap 7, BUN 13, creatinine 0.61. A sputum from December 29 showed Streptococcus pneumoniae. Chest x-ray shows bibasilar atelectasis. Progress note dated 01/11/2022. 66-year-old black female who was admitted back on December 21, and had a three-vessel bypass surgery on 12/21/2021. Today's postop day #21. Currently, she is on room air. She's been off a dexmedetomidine. The patient's getting saline at 20 mL an hour. She seems to be relatively comfortable. No new labs today. The patient is awake and alert. The patient has been intubated and extubated 3 times. Initially, she was intubated for surgery on December 21, and was extubated on the next day, December 22. She was reintubated on December 25 and extubated on December 31. Finally, she was reintubated on December 31, and extubated for the last time on January 02. Objective - Vital Signs Vital signs: Vital Signs Temp 98.6 F 01/11/22 04:00 Pulse 85 01/11/22 06:00 Resp 25 H 01/11/22 06:00 BP 131/66 01/11/22 06:00 Pulse Ox 97 01/11/22 06:00 FiO2 4 01/09/22 12:00 Intake & Output 01/10/22 01/10/22 01/11/22 06:59 18:59 06:59 Intake Total 240 244.143 240 Output Total 1100 880 470 Balance -860 -635.857 -230 Weight 70.5 kg 73.5 kg Intake: IV 240 240 240 0.9 @ 20 240 240 240 Intake, IV Titration 4.143 Amount Dexmedetomidine/0.9% NaCl 4.143 (Pmx) 400 mcg In Empty Bag 1 bag @ 0.2 MCG/KG/HR 3.525 mls/hr IV .Q24H [facility] Rx#:[id number] Output: Urine 1100 880 470 Other: Voiding Method Bedside Commode Bedside Commode Bedside Commode Bedpan Bedpan External Catheter # Voids 1 # Bowel Movements 1 1 ABP, PAP, CO, CI - Last Documented Arterial Blood Pressure 174/171 Pulmonary Artery Pressure 34/8 Cardiac Output 4.8 Cardiac Index 2.7 - Exam No acute distress, on room, with saturations of 96%. HEENT examination is grossly unremarkable. Neck supple. Full range of motion. No adenopathy thyromegaly or neck vein distention. Cardiovascular examination reveals regular rhythm rate. S1-S2 normal. No S3 or S4. No discernible murmur noted. Heart rate 62 bpm. Lungs reveal mostly clear breath sounds. Mild scattered rhonchi. No wheezes or crackles. Saturations are 96% on room air. Abdomen soft bowel sounds are heard. No masses or tenderness. Extremities are intact. No cyanosis clubbing or edema. Skin is without rash or lesion. Neurologic examination is brief but nonfocal. - Labs CBC & Chem 7: 01/10/22 07:34 01/10/22 07:34 Labs: Abnormal Lab Results - Last 24 Hours (Table) 01/10/22 01/10/22 01/10/22 Range/Units 07:34 07:34 20:01 RBC 3.08 L (3.80-5.40) m/uL Hgb 8.0 L (11.4-16.0) gm/dL Hct 26.4 L (34.0-46.0) % MCHC 30.4 L (31.0-37.0) g/dL RDW 19.9 H (11.5-15.5) % Plt Count 475 H (150-450) k/uL Chloride 112 H (98-107) mmol/L Carbon Dioxide 19 L (22-30) mmol/L Glucose 121 H (74-99) mg/dL POC Glucose (mg/dL) 127 H (70-110) mg/dL AST 39 H (14-36) U/L ALT 46 H (4-34) U/L Albumin 3.0 L (3.5-5.0) g/dL 01/11/22 Range/Units 06:36 RBC (3.80-5.40) m/uL Hgb (11.4-16.0) gm/dL Hct (34.0-46.0) % MCHC (31.0-37.0) g/dL RDW (11.5-15.5) % Plt Count (150-450) k/uL Chloride (98-107) mmol/L Carbon Dioxide (22-30) mmol/L Glucose (74-99) mg/dL POC Glucose (mg/dL) 169 H (70-110) mg/dL AST (14-36) U/L ALT (4-34) U/L Albumin (3.5-5.0) g/dL Assessment and Plan Assessment: Status post three-vessel bypass grafting, postop day #21. Status post intubation and mechanical ventilation with subsequent extubation 3. Moderate COPD, with an FEV1 that's 73% of predicted. Tobacco dependence syndrome. History of alcoholism. History of hepatitis C. History of left-sided thoracentesis for left pleural effusion, on January 02. Postoperative blood loss anemia. History of depression. History of substance abuse, including cocaine, alcohol, and marijuana. History of nephrectomy. Status post bronchoscopy on January 06. Plan: Plan dated 01/10/2022. We will attempt to wean the patient off of dexmedetomidine, and is said, treat her with Haldol IM. I gave an order to diffuse Haldol 48 mg IM, every 4 hours when necessary. The patient is also on Seroquel, and is also on some narcotic, as well as Ativan. We'll continue to follow and make recommendations where appropriate. Hopefully, the patient can be placed soon. She's been in the hospital since December 21. Prognosis is guarded. Plan dated 01/11/2022. The patient was weaned off of dexmedetomidine. She has been stable. Hemodynamically, she is stable. I did add some Haldol to the regimen yesterday. We should try to avoid narcotics as much as possible. No new labs today. No new x-rays today. Additional recommendations and suggestions are forthcoming. She's currently on room air. The patient could be transferred out of the intensive care unit. Time with Patient: Less than 30
[2022-01-11] MEDS: THIAMINE 100 MG TAB PO SCH ×2 (06:48→17:22)
[2022-01-11 07:55] LABS: Anisocytosis Slight; HCT 30.5 % (34.0-46.0); HGB 9.2 gm/dL (11.4-16.0); Hypochromasia Marked; MCH 26.1 pg (25.0-35.0); MCV 87.1 fL (80.0-100.0); Platelet Count 514 k/uL (150-450); Poikilocytosis Moderate; RDW 19.2 % (11.5-15.5); WBC 9.8 k/uL (3.8-10.6)
--- NOTE | 2022-01-11 08:07 | XR ---
EXAMINATION TYPE: XR chest 1V portable DATE OF EXAM: 01/11/2022 COMPARISON: X-ray dated 01/10/2022 HISTORY: Postcardiac surgery TECHNIQUE: Single frontal view of the chest is obtained. FINDINGS: Persistent pulmonary vascular congestion and prominent interstitial markings without interval progres steve. Stable postoperative changes, cardiomediastinal silhouette and bony thoracic cage. IMPRESSION: Grossly stable condition.
[2022-01-11 08:11] LABS: African American GFR (CKD) >90 (>60 ml/min/1.73 sqM); Anion Gap 11 mmol/L; Blood Urea Nitrogen 11 mg/dL (7-17); Calcium 9.6 mg/dL (8.4-10.2); Carbon Dioxide 19 mmol/L (22-30); Chloride 107 mmol/L (98-107); Glucose 166 mg/dL (74-99); Magnesium 1.6 mg/dL (1.6-2.3); Non-African American GFR(CKD) >90 (>60 ml/min/1.73 sqM); Potassium 4.2 mmol/L (3.5-5.1); Sodium 137 mmol/L (137-145)
[2022-01-11] MEDS: ASPIRIN 81 MG PO SCH (08:22)
[2022-01-11] MEDS: METOPROLOL TARTRATE 50 MG TAB PO SCH ×2 (08:22→21:38)
[2022-01-11] MEDS: SODIUM BICARBONATE TAB 650 MG TAB PO SCH ×2 (08:22→21:38)
[2022-01-11] MEDS: ASCORBIC ACID 500 MG TAB PO SCH ×2 (08:22→21:36)
[2022-01-11] MEDS: FLUoxetine HCL 20 MG CAP PO SCH (08:23)
[2022-01-11] MEDS: ATORVASTATIN 40 MG TAB PO SCH (08:23)
[2022-01-11] MEDS: CLOPIDOGREL 75 MG TAB PO SCH (08:24)
[2022-01-11] MEDS: QUEtiapine 100 MG TAB PO SCH ×2 (08:25→21:38)
[2022-01-11] MEDS: POTASSIUM CHLORIDE ER 20 MEQ TAB.ER PO SCH ×2 (08:25→11:39)
[2022-01-11] MEDS: LORazepam 0.5 MG TAB PO SCH ×2 (08:25→21:38)
[2022-01-11] MEDS: IPRATROPIUM-ALBUTEROL 3 ML NEB INHALATION SCH ×4 (09:00→19:47)
[2022-01-11] MEDS ORDERED: FUROSEMIDE 10 MG/ML 4 ML VIAL IV STA (09:27)
--- NOTE | 2022-01-11 10:20 | P.PN ---
Subjective Progress Note Date: 01/11/22 Principal diagnosis: Coronary artery disease with left main disease. Previous medical history of hypertension, current tobacco dependence with mild COPD, daily EtOH use (1 pint per day of liquor), occasional marijuana and cocaine use (UDS was positive for cocaine on admission), hepatitis C, CVA 20 years ago, solitary kidney. POD #20 coronary artery bypass grafting 3 vessels, left internal mammary artery to the left anterior descending artery, reverse saphenous vein graft to the obtuse marginal artery, reverse saphenous vein graft to the posterior descending artery, endoscopic harvesting of the left greater saphenous vein, ligation of the left atrial appendage using a 35 mm AtriClip, epi-aortic ultrasound and intraoperative transesophageal echocardiogram Postoperative acute blood loss anemia and thrombocytopenia, expected given hemodilution and cardiopulmonary bypass pump Suspected alcohol/drug withdrawal with thoracoabdominal dyssynchrony breathing pattern, reintubated per Dr. Thornton POD #5, bronchoscopy for airway evaluation prior to extubation, completed by Dr. Lopez The patient was seen and examined this morning sitting up in a recliner in the intensive care unit. She is much more calm and cooperative this morning. She is oriented to person, place and time. Endorses post surgical pain when asked which she states is mostly relieved with pain medication regimen, denies shortness of breath. He understands insurance authorization is in place for rehab, currently patient states she does not want to go to rehab, she wants to go home and does have a caregiver at home. Epicardial pacemaker wires were discontinued yesterday. She continues to oxygenate well on room air and is achieving 5762-1472 mL on incentive spirometry. She has ambulated in the hallway with assistance. No other new concerns. Objective - Vital Signs Vital signs: Vital Signs Temp 98.6 F 01/11/22 04:00 Pulse 84 01/11/22 09:00 Resp 33 H 01/11/22 09:00 BP 96/46 01/11/22 09:00 Pulse Ox 97 01/11/22 07:00 FiO2 4 01/09/22 12:00 Intake & Output 01/10/22 01/11/22 01/11/22 18:59 06:59 18:59 Intake Total 244.143 260 20 Output Total 880 570 Balance -635.857 -310 20 Weight 70.5 kg 73.5 kg Intake: IV 240 260 20 0.9 @ 20 240 260 20 Intake, IV Titration 4.143 Amount Dexmedetomidine/0.9% NaCl 4.143 (Pmx) 400 mcg In Empty Bag 1 bag @ 0.2 MCG/KG/HR 3.525 mls/hr IV .Q24H [facility] Rx#:[id number] Output: Urine 880 570 Other: Voiding Method Bedside Commode Bedside Commode Bedpan Bedpan External Catheter # Voids 0 # Bowel Movements 1 ABP, PAP, CO, CI - Last Documented Arterial Blood Pressure 174/171 Pulmonary Artery Pressure 34/8 Cardiac Output 4.8 Cardiac Index 2.7 - Exam CONSTITUTIONAL: Appears comfortable, cooperative, no acute distress RESPIRATORY: Lungs sounds diminished bilaterally. Respirations even, nonlabored. Currently on room air with oxygen saturation 97%. Able to achieve 5982-3762 mL on incentive spirometry, strong cough. CARDIOVASCULAR: S1, S2 present. Regular rate and rhythm, sinus rhythm on telemetry. Sternum stable. Palpable peripheral pulses bilaterally. No edema present. No calf pain or tenderness noted. Heart hugger, antiembolism stockings, SCDs present. GASTROINTESTINAL: Abdomen soft, nontender, nondistended. Active bowel sounds present 4 quadrants. Tolerating diet. Positive bowel movement 01/10 GENITOURINARY: Continues to void. Output 1350 mL in the last 24 hours INTEGUMENTARY: Skin is warm and dry with evidence of good perfusion. Anterior chest incision well approximated and covered with dry intact dressing. Left lower extremity EVH site well approximated without redness or drainage. NEUROLOGIC: Cranial nerves II through XII intact MUSKULOSKELETAL: Able to move all extremities, strength equal bilaterally PSYCHIATRIC: Alert and oriented to person place and time, calm and cooperative this morning - Allied health notes Allied health notes reviewed: nursing - Labs CBC & Chem 7: 01/11/22 07:17 01/11/22 07:17 Labs: Abnormal Lab Results - Last 24 Hours (Table) 01/10/22 01/11/22 01/11/22 Range/Units 20:01 06:36 07:17 RBC 3.50 L (3.80-5.40) m/uL Hgb 9.2 L (11.4-16.0) gm/dL Hct 30.5 L (34.0-46.0) % MCHC 30.0 L (31.0-37.0) g/dL RDW 19.2 H (11.5-15.5) % Plt Count 514 H (150-450) k/uL Carbon Dioxide (22-30) mmol/L Glucose (74-99) mg/dL POC Glucose (mg/dL) 127 H 169 H (70-110) mg/dL 01/11/22 Range/Units 07:17 RBC (3.80-5.40) m/uL Hgb (11.4-16.0) gm/dL Hct (34.0-46.0) % MCHC (31.0-37.0) g/dL RDW (11.5-15.5) % Plt Count (150-450) k/uL Carbon Dioxide 19 L (22-30) mmol/L Glucose 166 H (74-99) mg/dL POC Glucose (mg/dL) (70-110) mg/dL - Imaging and Cardiology Chest x-ray: report reviewed, image reviewed Assessment and Plan Assessment: 1. Coronary artery disease with left main disease, status post three-vessel CABG 2. History of hypertension, currently hypotensive on levo 3. Current tobacco dependence 4. Mild COPD, preoperative FEV1 was 73% of predicted 5. Daily EtOH use (1 pint per day of liquor) 6. Occasional marijuana and cocaine use (UDS was positive for cocaine on admission) 7. Hepatitis C 8. CVA 20 years ago 9. Solitary kidney. 10. Postoperative acute blood loss anemia and thrombocytopenia, expected 11. Suspected alcohol/drug withdrawal with thoracoabdominal dyssynchrony breathing pattern, reintubated per Dr. Thornton Plan: 1. Continue aspirin, statin, Plavix, Norvasc, beta briana therapy. 2. Encourage incentive spirometry use 10 times every hour while awake. Bronchodilators per pulmonology 3. Will monitor daily labs and x-rays. Electrolyte replacement per protocol. We'll give IV Lasix 40 mg today 4. GI/DVT prophylaxis 5. Pain control current medication regimen 6. Haldol ordered by pulmonology. Continue Seroquel, will make home dose ativan scheduled around the clock instead of prn 7. Insulin management per primary care services. Patient is not diabetic, preoperative hemoglobin A1c 5.4% 8. Patient counseled preoperatively and will continue to be counseled throughout her stay that she should refrain from smoking, drinking, using illicit drugs 9. Strict accurate intake and output. Daily weights 10. Increase activity as tolerated. Patient should be out of bed for all meals. PT/OT/cardiac rehab following 11. Discharge planning in progress. Will call patient's daughter to find out about home care-volunteer services coordinator 12. Transfer orders placed for 3S cardiac stepdown unit. May transfer when bed available 13. More recommendations to follow
[2022-01-11 11:31] LABS: Glucose,Whole Blood 113 mg/dL (70-110)
[2022-01-11] MEDS: amLODIPine 10 MG TAB PO SCH (11:39)
[2022-01-11] MEDS: MULTIVITAMINS, THERA 1 EACH TAB PO SCH (11:39)
[2022-01-11] MEDS: HYDROcodone/APAP 7.5-325MG 1 EACH TAB PO PRN ×2 (11:40→18:06)
[2022-01-11] MEDS: MAGNESIUM SULFATE-D5W PMX 1 GM in DEXTROSE/WATER 1 100ML.BAG IVPB SCH ×2 (11:41→15:21)
[2022-01-11 16:14] LABS: Glucose,Whole Blood 132 mg/dL (70-110)
[2022-01-11 21:34] LABS: Glucose,Whole Blood 109 mg/dL (70-110)
[2022-01-11] MEDS: SENNOSIDES-DOCUSATE SODIUM 1 EACH TAB PO SCH (21:36)
[2022-01-12] MEDS: HYDROcodone/APAP 7.5-325MG 1 EACH TAB PO PRN ×3 (00:34→16:18)
[2022-01-12] MEDS: HEPARIN SODIUM,PORCINE/PF 5,000 UNIT/0.5 ML SYRINGE SQ SCH ×2 (00:35→09:59)
[2022-01-12 06:09] VITALS: RESP 18
[2022-01-12 06:25] LABS: Glucose,Whole Blood 112 mg/dL (70-110)
[2022-01-12] MEDS: INSULIN ASPART (NovoLOG) 100 UNIT/ML VIAL SQ SCH ×2 (06:28→12:10)
[2022-01-12] MEDS: FERROUS SULFATE 325 MG TAB PO SCH (06:50)
[2022-01-12] MEDS: PANTOPRAZOLE 40 MG TABLET PO SCH (06:50)
[2022-01-12] MEDS: THIAMINE 100 MG TAB PO SCH (06:50)
--- NOTE | 2022-01-12 08:27 | XR ---
EXAMINATION TYPE: XR chest 1V portable DATE OF EXAM: 01/12/2022 COMPARISON: X-ray dated 01/11/2022 HISTORY: Postcardiac surgery TECHNIQUE: Single frontal view of the chest is obtained. FINDINGS: Interval improvement of signs of pulmonary edema. Suspected bilateral lower lung zone atelectasis. Carty spected small pleural effusions. Unchanged position of the right-sided PICC line. Unchanged cardiomediastinal silhouette, cardiac pros thesis and sternotomy wire sutures. IMPRESSION: As above.
[2022-01-12] MEDS: IPRATROPIUM-ALBUTEROL 3 ML NEB INHALATION SCH ×3 (08:45→16:04)
[2022-01-12] MEDS: ASCORBIC ACID 500 MG TAB PO SCH (09:56)
[2022-01-12] MEDS: CLOPIDOGREL 75 MG TAB PO SCH (09:57)
[2022-01-12] MEDS: LORazepam 0.5 MG TAB PO SCH (09:57)
[2022-01-12] MEDS: MULTIVITAMINS, THERA 1 EACH TAB PO SCH (09:57)
[2022-01-12] MEDS: FLUoxetine HCL 20 MG CAP PO SCH (09:57)
[2022-01-12] MEDS: ATORVASTATIN 40 MG TAB PO SCH (09:57)
[2022-01-12] MEDS: ASPIRIN 81 MG PO SCH (09:57)
[2022-01-12] MEDS: METOPROLOL TARTRATE 50 MG TAB PO SCH (09:57)
[2022-01-12] MEDS: SODIUM BICARBONATE TAB 650 MG TAB PO SCH (09:57)
[2022-01-12] MEDS ORDERED: diphenhydrAMINE 25 MG CAP PO PRN (10:02)
--- NOTE | 2022-01-12 10:04 | P.PN ---
Subjective Progress Note Date: 01/12/22 Principal diagnosis: Coronary artery disease with left main disease. Previous medical history of hypertension, current tobacco dependence with mild COPD, daily EtOH use (1 pint per day of liquor), occasional marijuana and cocaine use (UDS was positive for cocaine on admission), hepatitis C, CVA 20 years ago, solitary kidney. POD #21 coronary artery bypass grafting 3 vessels, left internal mammary artery to the left anterior descending artery, reverse saphenous vein graft to the obtuse marginal artery, reverse saphenous vein graft to the posterior descending artery, endoscopic harvesting of the left greater saphenous vein, ligation of the left atrial appendage using a 35 mm AtriClip, epi-aortic ultrasound and intraoperative transesophageal echocardiogram Postoperative acute blood loss anemia and thrombocytopenia, expected given hemodilution and cardiopulmonary bypass pump Suspected alcohol/drug withdrawal with thoracoabdominal dyssynchrony breathing pattern, reintubated per Dr. Thornton POD #6, bronchoscopy for airway evaluation prior to extubation, completed by Dr. Lopez The patient was seen and examined this morning sitting up in a recliner on the cardiac stepdown unit. She is calm and cooperative this morning. She is oriented to person, place and time. Endorses post surgical pain when asked which she states is mostly relieved with pain medication regimen, denies shortness of breath. States she wants to go home and does have a caregiver at home. She continues to oxygenate well on room air and is achieving 7552-5428 mL on incentive spirometry. She has ambulated in the hallway with assistance. She remains in sinus rhythm and hemodynamically stable. No other new concerns. Objective - Vital Signs Vital signs: Vital Signs Temp 98.2 F 01/12/22 05:55 Pulse 94 01/12/22 05:55 Resp 18 01/12/22 05:55 BP 105/61 01/12/22 05:55 Pulse Ox 93 L 01/12/22 05:55 FiO2 4 01/09/22 12:00 Intake & Output 01/11/22 01/12/22 01/12/22 18:59 06:59 18:59 Intake Total 20 Output Total 1000 Balance 20 -1000 Intake: IV 20 0.9 @ 20 20 Output: Urine 1000 Other: Voiding Method Bedside Commode # Voids 0 ABP, PAP, CO, CI - Last Documented Arterial Blood Pressure 174/171 Pulmonary Artery Pressure 34/8 Cardiac Output 4.8 Cardiac Index 2.7 - Exam CONSTITUTIONAL: Appears comfortable, cooperative, no acute distress RESPIRATORY: Lungs sounds diminished bilaterally. Respirations even, nonlabored. Currently on room air with oxygen saturation 97%. Able to achieve 1500 mL on incentive spirometry, strong cough. CARDIOVASCULAR: S1, S2 present. Regular rate and rhythm, sinus rhythm on telemetry. Sternum stable. Palpable peripheral pulses bilaterally. No edema present. No calf pain or tenderness noted. Heart hugger, antiembolism stockings, SCDs present. GASTROINTESTINAL: Abdomen soft, nontender, nondistended. Active bowel sounds present 4 quadrants. Tolerating diet. Positive bowel movement 01/10 GENITOURINARY: Continues to void. Output 1000 mL in the last 24 hours INTEGUMENTARY: Skin is warm and dry with evidence of good perfusion. Anterior chest incision well approximated and covered with dry intact dressing. Left lower extremity EVH site well approximated without redness or drainage. NEUROLOGIC: Cranial nerves II through XII intact MUSKULOSKELETAL: Able to move all extremities, strength equal bilaterally PSYCHIATRIC: Alert and oriented to person place and time, calm and cooperative this morning - Labs CBC & Chem 7: 01/11/22 07:17 01/11/22 07:17 Labs: Abnormal Lab Results - Last 24 Hours (Table) 01/11/22 01/11/22 01/12/22 Range/Units 11:29 16:12 06:23 POC Glucose (mg/dL) 113 H 132 H 112 H (70-110) mg/dL Assessment and Plan Assessment: 1. Coronary artery disease with left main disease, status post three-vessel CABG 2. History of hypertension, currently hypotensive on levo 3. Current tobacco dependence 4. Mild COPD, preoperative FEV1 was 73% of predicted 5. Daily EtOH use (1 pint per day of liquor) 6. Occasional marijuana and cocaine use (UDS was positive for cocaine on admission) 7. Hepatitis C 8. CVA 20 years ago 9. Solitary kidney. 10. Postoperative acute blood loss anemia and thrombocytopenia, expected 11. Suspected alcohol/drug withdrawal with thoracoabdominal dyssynchrony breathing pattern, reintubated per Dr. Thornton Plan: 1. Continue aspirin, statin, Plavix, Norvasc, beta briana therapy. 2. Encourage incentive spirometry use 10 times every hour while awake. Bronchodilators per pulmonology 3. Will monitor daily labs and x-rays. Electrolyte replacement per protocol. 4. GI/DVT prophylaxis 5. Pain control current medication regimen 6. Continue Seroquel, home dose ativan 7. Insulin management per primary care services. Patient is not diabetic, preoperative hemoglobin A1c 5.4% 8. Patient counseled preoperatively and continues to be counseled throughout her stay that she should refrain from smoking, drinking, using illicit drugs 9. Strict accurate intake and output. Daily weights 10. Increase activity as tolerated. Patient should be out of bed for all meals. PT/OT/cardiac rehab following 11. Discharge planning in progress. Anticipate discharge to home with home c are today. We'll call to discuss with daughter 12. More recommendations to follow
[2022-01-12 11:10] VITALS: TEMP 97.6
[2022-01-12 11:15] LABS: Anisocytosis Slight; HCT 31.6 % (34.0-46.0); HGB 9.3 gm/dL (11.4-16.0); Hypochromasia Marked; MCH 25.5 pg (25.0-35.0); MCHC 29.4 g/dL (31.0-37.0); MCV 86.6 fL (80.0-100.0); Platelet Count 473 k/uL (150-450); Poikilocytosis Moderate; RBC 3.65 m/uL (3.80-5.40); RDW 18.9 % (11.5-15.5)
[2022-01-12 11:36] LABS: African American GFR (CKD) >90 (>60 ml/min/1.73 sqM); Anion Gap 10 mmol/L; Blood Urea Nitrogen 10 mg/dL (7-17); Calcium 9.7 mg/dL (8.4-10.2); Carbon Dioxide 22 mmol/L (22-30); Chloride 107 mmol/L (98-107); Glucose 112 mg/dL (74-99); Magnesium 1.8 mg/dL (1.6-2.3); Non-African American GFR(CKD) 88 (>60 ml/min/1.73 sqM); Potassium 4.4 mmol/L (3.5-5.1); Sodium 139 mmol/L (137-145)
[2022-01-12 11:38] LABS: Glucose,Whole Blood 128 mg/dL (70-110)
[2022-01-12] MEDS ORDERED: FUROSEMIDE 10 MG/ML 4 ML VIAL IV STA (11:58)
[2022-01-12] MEDS: QUEtiapine 100 MG TAB PO SCH (12:08)
[2022-01-12] MEDS: ACETAMINOPHEN TAB 500 MG TAB PO PRN (12:09)
[2022-01-12] MEDS: amLODIPine 10 MG TAB PO SCH (12:09)
[2022-01-12] MEDS: MAGNESIUM SULFATE-D5W PMX 1 GM in DEXTROSE/WATER 1 100ML.BAG IVPB SCH ×2 (12:09→15:18)
--- NOTE | 2022-01-12 12:19 | P.PN ---
Subjective Progress Note Date: 01/12/22 Principal diagnosis: Status post bypass surgery. Reevaluated today on 01/08/22, remains in the ICU, patient became quite agitated last night, and she was becoming restless, I recommended a trial of Precedex drip, and she received 1 dose of Dilaudid. Patient calmed down nicely, today she is off Precedex, she seems to be doing fairly well, not in any distress, she is on 4 L nasal cannula. And her O2 sats is 97%. Achieving 1500 mL and her incentive spirometer. He is in sinus rhythm, rate of 62 bpm, hemodynamically stable, not requiring any inotropes or any pressors. Her urine output is good. Chest x-ray is basically unremarkable, minimal pulmonary vascular congestion n oted. And basilar atelectasis. WBC count is 14.4 hemoglobin 8.5. Electrolytes are normal, BUN is 21 creatinine 0.65. Reevaluated today on 01/09/2022, patient remains in the ICU, sitting at a bedside chair, awake, alert oriented 3, does not seem to be in any distress. Remains on 2 L nasal cannula, she is doing well and better with incentive spirometry, achieving 1250 mL per effort. Patient was also able to ambulate with assistance in the hallway. Patient had to be assisted by 2 nurses. She is tolerating the walking well, patient is doing better than expected considering her prolonged ho spital stay, and her multiple attempts of weaning and extubation and she failed extubation 3 times. She was extubated 3 days ago, and she tolerated the extubation well since the . WBC count is 8.6 hemoglobin is 8.7 and electrolytes are normal except bicarb is low at 17, and I suggested adding bicarb orally twice a day renal profile is normal chest x-ray showed small left- sided pleural effusion, and slight pulmonary vascular congestion. Patient is receiving Lasix This morning Progress note dated 01/10/2022. 66-year-old white female, who was admitted back on December 21, and had a three-vess el bypass surgery on December 21. Today's postop day #20. She's currently on 3 L nasal cannula. She's currently on dexmedetomidine at 0.3 mcg/kg/h. Getting saline at 20 mL an hour. Unfortunately, the patient has been intubated and extubated 3 times. Initially, she was intubated for surgery on December 21, and was extubated the next day on December 22. She was reintubated on December 25 and extubated on December 31, and then reintubated again on December 31, and extubated from the last time on January 02. Today, we will add some Haldol to her regimen. White count is 8.7, hemoglobin 8, hematocrit 26.4, and platelet count 475,000. Sodium 138, potassium 3.5, chlorides 112, CO2 19, anion gap 7, BUN 13, creatinine 0.61. A sputum from December 29 showed Streptococcus pneumoniae. Chest x-ray shows bibasilar atelectasis. Progress note dated 01/11/2022. 66-year-old black female who was admitted back on December 21, and had a three-vessel bypass surgery on 12/21/2021. Today's postop day #21. Currently, she is on room air. She's been off a dexmedetomidine. The patient's getting saline at 20 mL an hour. She seems to be relatively comfortable. No new labs today. The patient is awake and alert. The patient has been intubated and extubated 3 times. Initially, she was intubated for surgery on December 21, and was extubated on the next day, December 22. She was reintubated on December 25 and extubated on December 31. Finally, she was reintubated on December 31, and extubated for the last time on January 02. Progress note dated 01/12/2022. 66-year-old black female is admitted back on December 21, and had a three-vessel bypass surgery on 12/21/2021. Today's postop day #22. Patient's currently on room air. The patient is not receiving any IV fluids. She is stable from the pulmonary perspective. White count 8, hemoglobin 9.3, hematocrit 31.6, with a normal platelet count. Electrolyte profile is completely normal. Chest x-ray s hows small pleural effusion, and improved volume status. Objective - Vital Signs Vital signs: Vital Signs Temp 97.6 F 01/12/22 08:00 Pulse 80 01/12/22 08:00 Resp 18 01/12/22 08:00 BP 128/86 01/12/22 08:00 Pulse Ox 96 01/12/22 08:00 FiO2 4 01/09/22 12:00 Intake & Output 01/11/22 01/12/22 01/12/22 18:59 06:59 18:59 Intake Total 20 240 Output Total 1000 Balance 20 -1000 240 Intake: IV 20 0.9 @ 20 20 Oral 240 Output: Urine 1000 Other: Voiding Method Bedside Commode # Voids 0 ABP, PAP, CO, CI - Last Documented Arterial Blood Pressure 174/171 Pulmonary Artery Pressure 34/8 Cardiac Output 4.8 Cardiac Index 2.7 - Exam No acute distress, on room, with saturations of 96%. HEENT examination is grossly unremarkable. Neck supple. Full range of motion. No adenopathy thyromegaly or neck vein distention. Cardiovascular examination reveals regular rhythm rate. S1-S2 normal. No S3 or S4. No discernible murmur noted. Heart rate 80 bpm. Lungs reveal mostly clear breath sounds. Mild scattered rhonchi. No wheezes or crackles. Saturations are 96% on room air. Abdomen soft bowel sounds are heard. No masses or tenderness. Extremities are intact. No cyanosis clubbing or edema. Skin is without rash or lesion. Neurologic examination is brief but nonfocal. - Labs CBC & Chem 7: 01/12/22 10:58 01/12/22 10:58 Labs: Abnormal Lab Results - Last 24 Hours (Table) 01/11/22 01/12/22 01/12/22 Range/Units 16:12 06:23 10:58 RBC 3.65 L (3.80-5.40) m/uL Hgb 9.3 L (11.4-16.0) gm/dL Hct 31.6 L (34.0-46.0) % MCHC 29.4 L (31.0-37.0) g/dL RDW 18.9 H (11.5-15.5) % Plt Count 473 H (150-450) k/uL Glucose (74-99) mg/dL POC Glucose (mg/dL) 132 H 112 H (70-110) mg/dL 01/12/22 01/12/22 Range/Units 10:58 11:35 RBC (3.80-5.40) m/uL Hgb (11.4-16.0) gm/dL Hct (34.0-46.0) % MCHC (31.0-37.0) g/dL RDW (11.5-15.5) % Plt Count (150-450) k/uL Glucose 112 H (74-99) mg/dL POC Glucose (mg/dL) 128 H (70-110) mg/dL Assessment and Plan Assessment: Status post three-vessel bypass grafting, postop day #22. Status post intubation and mechanical ventilation with subsequent extubation 3. Moderate COPD, with an FEV1 that's 73% of predicted. Tobacco dependence syndrome. History of alcoholism. History of hepatitis C. History of left-sided thoracentesis for left pleural effusion, on January 02. Postoperative blood loss anemia. History of depression. History of substance abuse, including cocaine, alcohol, and marijuana. History of nephrectomy. Status post bronchoscopy on January 06. Plan: Plan dated 01/10/2022. We will attempt to wean the patient off of dexmedetomidine, and is said, treat her with Haldol IM. I gave an order to diffuse Haldol 48 mg IM, every 4 hours when necessary. The patient is also on Seroquel, and is also on some narcotic, as well as Ativan. We'll continue to follow and make recommendations where appropriate. Hopefully, the patient can be placed soon. She's been in the hospital since December 21. Prognosis is guarded. Plan dated 01/11/2022. The patient was weaned off of dexmedetomidine. She has been stable. Hemodynamically, she is stable. I did add some Haldol to the regimen yesterday. We should try to avoid narcotics as much as possible. No new labs today. No new x-rays today. Additional recommendations and suggestions are forthcoming. She's currently on room air. The patient could be transferred out of the intensive care unit. Plan dated 01/12/2022. The patient's doing well. The patient has been weaned off of most of her prior medications. Her respiratory status is stable. She's on room air. Saturations are 96-97%. The patient is not receiving any IV fluids. I told the nurses to go gently with the narcotics that were ordered try to use primarily Tylenol for pain relief. Because her pulmonary status is stable, we will see the patient moving forward, only as needed. Please feel free to call us back should her respiratory status become an issue again. Prognosis is very guarded. Time with Patient: Less than 30
--- NOTE | 2022-01-12 15:05 | P.DS ---
Providers Date of admission: 12/21/21 05:29 Expected date of discharge: 01/12/22 Attending physician: Abel Moura Consults: 12/21/21 13:58 Consult Physician Routine Consulting Provider: Amaris Foreman Consult Reason/Comments: Sales Secretary Consult: post cardiac surgery Do you want consulting provider notified?: Yes Consult Physician Routine Consulting Provider: Yovanny Thornton Consult Reason/Comments: Gage Maker Consult: post cardiac surgery Do you want consulting provider notified?: Yes Consult Physician Routine Consulting Provider: Vini Allan Consult Reason/Comments: med mgmt Do you want consulting provider notified?: Yes 01/08/22 08:11 Consult Physician Routine Consulting Provider: Yoandy Avery Consult Reason/Comments: Evaluate for inpatient rehab Do you want consulting provider notified?: Yes Primary care physician: Vini Allan [facility] Course: FINAL DIAGNOSIS: 1. Coronary artery disease with left main disease 2. Hypertension 3. Current tobacco dependence 4. Mild COPD, FEV 1 73% of predicted 5. Daily ETOH use (1 pint whiskey daily) 6. Occasional marijuana and cocain use (UDS positive for cocaine on admission) 7. Hepatitis C 8. CVA 20 years ago 9. Solitary kidney 10. Postoperative acute blood loss anemia and thrombocytopenia, expected 11. Suspected alcohol/drug withdrawal requiring reintubation PRINCIPAL PROCEDURE: 1. Coronary artery bypass grafting x 3, [place] to LAD, SVG to OM, SVG to PDA 2. Endoscopic harvesting of the left greater saphenous vein 3. Ligation of the left atrial appendage using a 35 mm AtriClip 4. Epi-aortic ultrasound and intraoperative transesophageal echocardiogram 5. Bronchoscopy for airway evaluation before extubation HISTORY OF PRESENT ILLNESS: This is a 66 year old female who follows on an outpatient basis with Dr. Allan for primary care and Dr. Hutchison for cardiology. She had been experiencing chest pain and shortness of breath for approximately 2 months. She was seen by cardiology and underwent stress testing which was abnormal. Subsequently she was recommended to undergo heart catheterization which demonstrated left main stenosis 85%, totally occluded RCA with collateral from the left side, proximal LAD stenosis 95%, with mid LAD stenosis 50% and distal LAD stenosis 70%. Consultation was placed to Dr. Moura from cardiothoracic surgery. She was recommended to undergo coronary artery bypass surgery. The usual perioperative course was discussed in detail with the patient, all risks and benefits were explained, all questions were answered, and consent was obtained to proceed with surgery. The patient was discharged to home on maximal medical therapy to return as an outpatient for surgery at the earliest possible date. HOSPITAL COURSE: The patient was brought to the hospital on 12/21/21, taken to the preoperative area, prepared in the usual fashion, and subsequently taken to the operating room where Dr. Moura performed 3 vessel CABG. Upon completion of surgery the patient was transferred to the cardiovascular intensive care unit where she was recovered and monitored hemodynamically. She was extubated, all lines, tubes, and drips were discontinued when appropriate. Unfortunately this patient had a edgar recovery due to alcohol/drug withdrawal and needed reintubation. She was eventually extubated safely and continued to recover. She was transferred to S cardiac stepdown unit for further monitoring and rehabilitation. Her oxygen was titrated down, she continued to work with physical and occupational therapy, she was tolerating oral diet, her pain was controlled, and she was ready to be discharged to [facility] on postoperative day #21. She received written and verbal instruction regarding her medications, activity restrictions, signs and symptoms requiring physician notification, and follow-up appointments. She was instructed multiple times to refrain from smoking, drinking alcohol, and using illicit drugs. Patient Condition at Discharge: Stable Plan - Discharge Summary Discharge Rx Participant: Yes New Discharge Prescriptions: New Ferrous Sulfate [Iron (65 MG Elemental)] 325 mg PO BID-W/MEALS tab Metoprolol Tartrate [Lopressor] 50 mg PO BID tab Multivitamins, Thera [Multivitamin (formulary)] 1 each PO DAILY tab HYDROcodone/APAP 7.5-325MG [[place] 7.5-325] 1 each PO Q4HR PRN tab PRN Reason: Pain Sennosides-Docusate Sodium [Senokot-S] 2 each PO HS tab Sodium Bicarbonate Tab 650 mg PO BID tab Acetaminophen Tab [Tylenol] 1,000 mg PO Q6HR PRN tab PRN Reason: Fever And/ Or Pain Ascorbic Acid [Vitamin C] 500 mg PO BID tab Atorvastatin [Lipitor] 40 mg PO DAILY tab Magnesium Hydroxide [Milk of Magnesia Concentrate] 2,400 mg PO BID PRN ml PRN Reason: Constipation amLODIPine [Norvasc] 10 mg PO DAILY@1200 tab Clopidogrel [Plavix] 75 mg PO DAILY tab Pantoprazole [Protonix] 40 mg PO AC-BRKFST tab QUEtiapine [SEROquel] 100 mg PO BID tab Thiamine [Vitamin B-1] 100 mg PO BID-W/MEALS tab Continue FLUoxetine HCL [PROzac] 20 mg PO DAILY Aspirin 81 mg PO DAILY Albuterol Sulfate [Proair Hfa] 1 - 2 puff INHALATION Q6HR PRN PRN Reason: Shortness Of Breath Changed LORazepam [Ativan] 0.5 mg PO BID #0 Discontinued Nitroglycerin Sl Tabs [Nitrostat] 0.4 mg SUBLINGUAL Q5M PRN PRN Reason: Chest Pain Meloxicam [Mobic] 7.5 mg PO DAILY Diltiazem Cd [Cardizem CD] 180 mg PO DAILY traZODone HCL [Desyrel] 100 mg PO HS Metoprolol Succinate (ER) [Toprol Xl] 25 mg PO DAILY Discharge Medication List Albuterol Sulfate [Proair Hfa] 1 - 2 puff INHALATION Q6HR PRN 12/07/21 [History] Aspirin 81 mg PO DAILY 12/07/21 [History] FLUoxetine HCL [PROzac] 20 mg PO DAILY 12/07/21 [History] Acetaminophen Tab [Tylenol] 1,000 mg PO Q6HR PRN tab 01/12/22 [Rx] Ascorbic Acid [Vitamin C] 500 mg PO BID tab 01/12/22 [Rx] Atorvastatin [Lipitor] 40 mg PO DAILY tab 01/12/22 [Rx] Clopidogrel [Plavix] 75 mg PO DAILY tab 01/12/22 [Rx] Ferrous Sulfate [Iron (65 MG Elemental)] 325 mg PO BID-W/MEALS tab 01/12/22 [Rx] HYDROcodone/APAP 7.5-325MG [[place] 7.5-325] 1 each PO Q4HR PRN tab 01/12/22 [Rx] LORazepam [Ativan] 0.5 mg PO BID #0 01/12/22 [Rx] Magnesium Hydroxide [Milk of Magnesia Concentrate] 2,400 mg PO BID PRN ml 01/12/22 [Rx] Metoprolol Tartrate [Lopressor] 50 mg PO BID tab 01/12/22 [Rx] Multivitamins, Thera [Multivitamin (formulary)] 1 each PO DAILY tab 01/12/22 [Rx] Pantoprazole [Protonix] 40 mg PO AC-BRKFST tab 01/12/22 [Rx] QUEtiapine [SEROquel] 100 mg PO BID tab 01/12/22 [Rx] Sennosides-Docusate Sodium [Senokot-S] 2 each PO HS tab 01/12/22 [Rx] Sodium Bicarbonate Tab 650 mg PO BID tab 01/12/22 [Rx] Thiamine [Vitamin B-1] 100 mg PO BID-W/MEALS tab 01/12/22 [Rx] amLODIPine [Norvasc] 10 mg PO DAILY@1200 tab 01/12/22 [Rx] Follow up Appointment(s)/Referral(s): [facility],Cardiac [NON-STAFF] - 4 Weeks (you will be called in approximately 4 weeks for evaluation for cardiac rehab) Jhon Hutchison DO [STAFF PHYSICIAN] - 1 Week (Please call for appointment when discharged from rehab) Yovanny Thornton DO [Doctor of Osteopathic Medicine] - 1 Week (Please call for appointment when discharged from rehab) Abel Moura MD [STAFF PHYSICIAN] - 01/25/22 9:45 am Vini Allan MD [Primary Care Provider] - 1 Week (Please call for appointment when discharged from rehab) Ambulatory/Diagnostic Orders: Complete Blood Count w/diff [LAB.AMB] Time Frame: 3 Days, Location: None Selected Comprehensive Metabolic Panel [LAB.AMB] Time Frame: 3 Days, Location: None Selected Activity/Diet/Wound Care/Special Instructions: CONSULTS AT INPATIENT REHAB: Dr Hutchison for cardiology Dr Thornton for pulmonology DISCHARGE INSTRUCTIONS: 1. No driving for 4 weeks, or until physician gives their ok. 2. The patient should sleep in their own bed, no medical bed needed. 3. Stairs are not an issue. If the bedroom is upstairs, it is advised that the patient go up at night and down in the morning for the first week. Go slowly, using handrail and take 1 step at a time. 4. SANDOR hose are to be worn for 30 days or until physician discontinues. 5. Heart hugger is to be worn 100% of the time until physician discontinues.(except when showering) 6. No lifting, pushing, or pulling more than 10 pounds for 12 weeks. The physician will advise of any restriction changes. 7. The patient is expected to continue the prescribed walking program. 8. Continue pain control per as needed orders. 9. Continue with incentive spirometry and splinting/heart hugger until otherwise directed by the physician. 10. Must shower daily using liquid antibacterial soap and a separate white washcloth for each individual incision. 11. Routine sternal incision care. No powders, lotions, ointments on incisions. No dressings are necessary on incisions unless they are draining. Dermabond tape is to remain on sternal incision until surgeon follow-up. 12. Please call surgeon/PRODUCT SAFETY COMPLIANCE LEADER for temp greater than 101 F or purulent drainage from incisions. 13. You should weigh yourself daily, record and bring log with you to follow up appointments. 14. All prescriptions given by surgeon for 30 days. Refills need to be filled through field pipelines supervisor/primary care physician. 15. A Red armband has been placed on the patient. It should be worn for 30 days post surgery and will be removed by the cardiac surgeons. If an ER visit is necessary, please make sure the number on the Red armband is called. 16. You have been referred to and are expected to begin Cardiac Rehab in approximately 4-6 weeks. HOME HEALTH SERVICES TO PROVIDE: RN SKILLED HOME CARE SERVICES FOR POST-OP SURGICAL PATIENTS WITH THE FOLLOWING: Coronary Artery Bypass Surgery (CABG), Mitral Valve Replacement/Repair ( MVR), Aortic Valve Replacement/Repair (AVR) RN TO CONTINUE EDUCATION FROM ``ROAD TO A HEALTH HEART PATIENT EDUCATION MANUAL (GIVEN TO PATIENT IN THE HOSPITAL) MEDICATION RECONCILIATION WITH EDUCATION NEEDED ON FIRST HOME VISIT EMPHASIZE IMPORTANCE OF WEARING BREAST SUPPORT/HEART HUGGER ENCOURAGE USE OF INCENTIVE SPIROMETER 10 X EVERY HOUR WHILE AWAKE ENCOURAGE UTILIZATION OF LOWER EXTREMITY COMPRESSION STOCKINGS/SANDOR HOSE and ELEVATE LEGS ABOVE LEVEL OF HEART WHILE AT REST. ENCOURAGE AMBULATION 3-5x/day INCREASING TOLERATES, WHILE AVOIDING EXTREMES IN TEMPERATURE FREQUENCY: RN TO OPEN THE PATIENT WITHIN 24 HOURS OF DISCHARGE FROM THE HOSPITAL WITH TELEHEALTH INSTALLED AT [facility] [place], RN TO VISIT 2-3 X A WEEK FOR 4 WEEKS ESTABLISHED BY PATIENT NEEDS. LABORATORY: CBC, CMP TO BE DRAWN ON THE THIRD DAY HOME, (RAN STAT) FAX RESULTS TO [phone]. TELEHEALTH PARAMETERS: WEIGHT: NOTIFY MD OF WEIGHT GAIN OF 2 LBS IN 24 HOURS OR 5 LBS IN ONE WEEK HR: NOTIFY MD OF HR <55 BPM OR HR>100 BPM BP: NOTIFY MD IF BP <90/55 OR BP>140/100 O2 SAT: NOTIFY MD IF PO2<93% ON ROOM AIR SEND TELEHEALTH REPORT TO SAXOPHONE ASSEMBLER AND CARDIOVASCULAR SURGEON THE FIRST WEEK OF CARE AND THEN BI-WEEKLY. PLEASE ADDITIONALLY COMMUNICATE ANY ABNORMALS AND NEW FINDINGS TO THE SURGEONS OFFICE. Discharge Disposition: HOME WITH HOME HEALTH SERVICES
[2022-01-12] MEDS: HALOPERIDOL LACTATE 5 MG/ML 1 ML VIAL IM PRN (15:55)
[2022-01-12 16:26] LABS: Glucose,Whole Blood 135 mg/dL (70-110)
[2022-01-12 17:27] VITALS: BP 110/74; PULSE 96
== END 2022-01-12 18:05 | DRG 235 ==
LOC: 2ORMAIN 05:29 → 2SICU 14:08 → 3SCARD 01-12 06:34
PROVIDERS: ADMIT Surgery; ATTEND Surgery
PROC: 06BQ4ZZ Excision of Left Saphenous Vein, Percutaneous Endoscopic Approach (ICD-10-PCS; principal; 2021-12-21 08:00)
PROC: 02L70CK Occlusion of Left Atrial Appendage with Extraluminal Device, Open Approach (ICD-10-PCS; principal; 2021-12-21 08:00)
PROC: 02100Z9 Bypass Coronary Artery, One Artery from Left Internal Mammary, Open Approach (ICD-10-PCS; principal; 2021-12-21 08:00)
PROC: 5A1221Z Performance of Cardiac Output, Continuous (ICD-10-PCS; principal; 2021-12-21 08:00)
PROC: 021109W Bypass Coronary Artery, Two Arteries from Aorta with Autologous Venous Tissue, Open Approach (ICD-10-PCS; principal; 2021-12-21 08:00)
PROC: B246ZZ4 Ultrasonography of Right and Left Heart, Transesophageal (ICD-10-PCS; principal; 2021-12-21 08:00)
PROC: 3E043XZ Introduction of Vasopressor into Central Vein, Percutaneous Approach (ICD-10-PCS; 2021-12-22)
PROC: 5A09357 Assistance with Respiratory Ventilation, Less than 24 Consecutive Hours, Continuous Positive Airway Pressure (ICD-10-PCS; 2021-12-22)
PROC: 30233N1 Transfusion of Nonautologous Red Blood Cells into Peripheral Vein, Percutaneous Approach (ICD-10-PCS; 2021-12-22)
PROC: 5A0935A Assistance with Respiratory Ventilation, Less than 24 Consecutive Hours, High Flow/Velocity Cannula (ICD-10-PCS; 2021-12-23)
PROC: 0BH17EZ Insertion of Endotracheal Airway into Trachea, Via Natural or Artificial Opening (ICD-10-PCS; 2021-12-26)
PROC: 5A1955Z Respiratory Ventilation, Greater than 96 Consecutive Hours (ICD-10-PCS; 2021-12-26)
PROC: 4A133J1 Monitoring of Arterial Pulse, Peripheral, Percutaneous Approach (ICD-10-PCS; 2021-12-26)
PROC: 04HY32Z Insertion of Monitoring Device into Lower Artery, Percutaneous Approach (ICD-10-PCS; 2021-12-26)
PROC: 03HY32Z Insertion of Monitoring Device into Upper Artery, Percutaneous Approach (ICD-10-PCS; 2021-12-26)
PROC: 02H633Z Insertion of Infusion Device into Right Atrium, Percutaneous Approach (ICD-10-PCS; 2021-12-26)
PROC: 4A133B1 Monitoring of Arterial Pressure, Peripheral, Percutaneous Approach (ICD-10-PCS; 2021-12-26)
PROC: 0D9670Z Drainage of Stomach with Drainage Device, Via Natural or Artificial Opening (ICD-10-PCS; 2021-12-26)
PROC: 3E0G76Z Introduction of Nutritional Substance into Upper GI, Via Natural or Artificial Opening (ICD-10-PCS; 2021-12-27)
PROC: 4A133J1 Monitoring of Arterial Pulse, Peripheral, Percutaneous Approach (ICD-10-PCS; 2021-12-30)
PROC: 4A133B1 Monitoring of Arterial Pressure, Peripheral, Percutaneous Approach (ICD-10-PCS; 2021-12-30)
PROC: 03HY32Z Insertion of Monitoring Device into Upper Artery, Percutaneous Approach (ICD-10-PCS; 2021-12-30)
PROC: 5A09357 Assistance with Respiratory Ventilation, Less than 24 Consecutive Hours, Continuous Positive Airway Pressure (ICD-10-PCS; 2021-12-31)
PROC: 0BH18EZ Insertion of Endotracheal Airway into Trachea, Via Natural or Artificial Opening Endoscopic (ICD-10-PCS; 2022-01-02)
PROC: 0W9B3ZZ Drainage of Left Pleural Cavity, Percutaneous Approach (ICD-10-PCS; 2022-01-02)
PROC: 5A1945Z Respiratory Ventilation, 24-96 Consecutive Hours (ICD-10-PCS; 2022-01-02)
PROC: 02HV33Z Insertion of Infusion Device into Superior Vena Cava, Percutaneous Approach (ICD-10-PCS; 2022-01-05)
PROC: 0B9M8ZZ Drainage of Bilateral Lungs, Via Natural or Artificial Opening Endoscopic (ICD-10-PCS; 2022-01-06)
DX: I25.119 Atherosclerotic heart disease of native coronary artery with unspecified angina pectoris (principal); J96.02 Acute respiratory failure with hypercapnia; J96.01 Acute respiratory failure with hypoxia; J13 Pneumonia due to Streptococcus pneumoniae; J15.9 Unspecified bacterial pneumonia; A41.9 Sepsis, unspecified organism; F10.231 Alcohol dependence with withdrawal delirium; D62 Acute posthemorrhagic anemia; J90 Pleural effusion, not elsewhere classified; J44.0 Chronic obstructive pulmonary disease with (acute) lower respiratory infection; J98.11 Atelectasis; D69.6 Thrombocytopenia, unspecified; I95.9 Hypotension, unspecified; I25.82 Chronic total occlusion of coronary artery; M06.9 Rheumatoid arthritis, unspecified; F14.10 Cocaine abuse, uncomplicated; I25.84 Coronary atherosclerosis due to calcified coronary lesion; I34.0 Nonrheumatic mitral (valve) insufficiency; I10 Essential (primary) hypertension; F32.A Depression, unspecified; E78.5 Hyperlipidemia, unspecified; E78.00 Pure hypercholesterolemia, unspecified; I49.3 Ventricular premature depolarization; R53.81 Other malaise; K76.9 Liver disease, unspecified; B19.20 Unspecified viral hepatitis C without hepatic coma; F17.200 Nicotine dependence, unspecified, uncomplicated; Z71.6 Tobacco abuse counseling; Z79.82 Long term (current) use of aspirin; Z79.1 Long term (current) use of non-steroidal anti-inflammatories (NSAID); Z79.899 Other long term (current) drug therapy; Z86.73 Personal history of transient ischemic attack (TIA), and cerebral infarction without residual deficits; Z90.5 Acquired absence of kidney; Z90.49 Acquired absence of other specified parts of digestive tract; Z87.19 Personal history of other diseases of the digestive system; Z87.442 Personal history of urinary calculi; Z78.1 Physical restraint status; Z98.890 Other specified postprocedural states; Z71.3 Dietary counseling and surveillance; Z71.41 Alcohol abuse counseling and surveillance of alcoholic; Z71.51 Drug abuse counseling and surveillance of drug abuser; Z88.5 Allergy status to narcotic agent; Z83.79 Family history of other diseases of the digestive system
CPT/HCPCS: 31645; 36573; 36600; 71045; 76604; 80048; 80053; 80202; 80306; 81003; 82330; 82805; 83735; 84132; 84145; 85025; 85027; 85520; 85610; 85730; 86850; 86891; 86900; 86901; 86920; 87070; 87077; 87186; 87205; 94002; 94003; 94640; 94660; 94760